=== PATIENT | male | born 1940 | race Caucasian/White ===

== ENCOUNTER 2023-07-19 08:51 | Outpatient (OUT) | payer MEDICARE, OTHER, SELFPAY ==
--- NOTE | 2023-07-19 09:04 | XR_ITS ---
The [address] [address] Patient Name: YVONNE CAN MRN: [id number] date: 1940 Sex: M Assigned Patient Location: [facility] Current Patient Location: Accession/Order Number: [id number] Exam Date: 07/19/2023 09:45 Report Date: 07/20/2023 07:28 At the request of: ABRAN PICKERING Procedure: XR chest 2V EXAMINATION: XR chest 2V HISTORY: Preop exam COMPARISON: No relevant comparison available. FINDINGS: LUNGS: No significant pulmonary parenchymal abnormalities. VASCULATURE: No increased pulmonary vasculature. PLEURA: No pneumothorax, effusion, or pleural thickening. CARDIAC: No cardiomegaly or cardiac silhouette abnormality. MEDIASTINUM: No visible mass or adenopathy. BONES: Mild grade 1 retrolisthesis of approximately T12 and L1 vertebral bodies. No compression fractures. OTHER: Negative. XR/XR chest 2V IMPRESSION: 1. No acute cardiopulmonary process or appreciable significant chronic interstitial changes. Electronically authenticated by: SHAQUILLE ENGLISH Date: 07/20/2023 07:28
--- NOTE | 2023-07-19 09:04 | ECG_ITS ---
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
--- NOTE | 2023-07-19 09:44 | P.GSHP_ITS ---
History of Present Illness History of Present Illness Chief complaint: prostate cancer Narrative: Patient presents for preadmission testing. The patient states he has nocturia and has been diagnosed with prostate cancer. The patient is a poor historian. He denies nausea, vomiting, dysuria, hematuria, fever, or any other complaints. Review of Systems ROS Narrative REVIEW OF SYSTEMS: Negative except as stated in HPI, ten or more systems reviewed. Constitutional: No fever , chills, weakness ENT: No sore throat or epistaxis Cardiovascular: No edema, chest pain, palpitations, or activity intolerance Respiratory: No shortness of breath, cough, or wheezing Musculoskeletal: No joint pain or swelling Gastrointestinal: No abdominal pain, constipation, diarrhea, or vomiting Genitourinary: No dysuria or hematuria Neurological: No numbness, tingling, weakness, or headache Psychiatric: No mood changes PFSH PFSH Medical History (Updated 07/19/23 @ 09:43 by Nichelle Guevara NP) Benign prostatic hyperplasia with urinary obstruction and other lower urinary tract symptoms ?N40.1 - Benign prostatic hyperplasia with lower urinary tract symptoms (ICD- 10) ?N13.8 - Other obstructive and reflux uropathy (ICD-10) BPH (benign prostatic hyperplasia) ?N40.0 - Benign prostatic hyperplasia without lower urinary tract symptoms (ICD-10) Constipation ?K59.00 - Constipation, unspecified (ICD-10) Elevated PSA ?R97.20 - Elevated prostate specific antigen [PSA] (ICD-10) Elevated serum cholesterol ?E78.00 - Pure hypercholesterolemia, unspecified (ICD-10) Hearing loss ?H91.90 - Unspecified hearing loss, unspecified ear (ICD-10) Hypertension ?I10 - Essential (primary) hypertension (ICD-10) Kidney stones ?N20.0 - Calculus of kidney (ICD-10) Prostate cancer ?C61 - Malignant neoplasm of prostate (ICD-10) Surgical History (Updated 07/19/23 @ 09:26 by Nichelle Guevara NP) History of cataract extraction ?Z98.49 - Cataract extraction status, unspecified eye (ICD-10) History of colonoscopy ?Z98.890 - Other specified postprocedural states (ICD-10) History of hemorrhoidectomy ?Z98.890 - Other specified postprocedural states (ICD-10) History of hernia repair ?Z98.890 - Other specified postprocedural states (ICD-10) ?Z87.19 - Personal history of other diseases of the digestive system (ICD-10) Hx of prostate biopsy ?Z98.890 - Other specified postprocedural states (ICD-10) S/P cystoscopy ?Z98.890 - Other specified postprocedural states (ICD-10) Family History (Updated 07/19/23 @ 09:26 by Nichelle Guevara NP) Other Family history of heart disease Meds Home Medications and Allergies Home Medications Medication Instructions Recorded Confirmed Type Eye and vision supplement PO 07/19/23 History aspirin 81 mg tablet,delayed 81 mg PO DAILY 07/19/23 07/19/23 History release (Adult Aspirin Regimen) calcium citrate 200 mg (950 mg) 200 mg PO DAILY 07/19/23 07/19/23 History tablet cholecalciferol (vitamin D3) 25 1,000 unit PO DAILY 07/19/23 07/19/23 History mcg (1,000 unit) capsule lactobacillus combination no.4 3 3,000 mmu cells PO DAILY 07/19/23 07/19/23 History billion cell capsule (Probiotic) lisinopril 10 mg tablet 10 mg PO DAILY 07/19/23 07/19/23 History omega-3 acid ethyl esters 1 gram 1 cap PO BID 07/19/23 07/19/23 History capsule polyethylene glycol 3350 17 17 g PO DAILY 07/19/23 07/19/23 History gram/dose oral powder (ClearLax) simvastatin 20 mg tablet 20 mg PO DAILY 07/19/23 07/19/23 History Allergies Allergy/AdvReac Type Severity Reaction Status Date / Time Penicillins Allergy Rash Verified 07/19/23 09:22 Sulfa (Sulfonamide Allergy Unknown Verified 07/19/23 09:22 Antibiotics) Exam Narrative Exam Narrative: Constitutional: Awake, alert, comfortable, well-appearing, nontoxic, interactive, vital signs as charted Head: Normocephalic, atraumatic Neck: Supple, normal appearance, normal range of motion, no meningeal signs, no lymphadenopathy Respiratory: No respiratory distress, breath sounds clear Cardiovascular: Regular rate and rhythm, strong and regular heart tones Abdomen: Nontender, normal bowel sounds, soft, no CVA tenderness Musculoskeletal: Normal gait, no swelling or edema Skin: No rashes or induration, no lesions, only visible skin inspected Neuro: No neurological deficits, normal sensation Psychiatric: Oriented ?3, flat affect, Poor insight Assessment and Plan Assessment and Plan (1) Prostate cancer: Plan Ernest seed implant scheduled with Dr. Ochoa 08/02/2023.
[2023-07-19 09:49] LABS: Basophils Absolute Auto 0.1 10^3/uL (0.0-0.1); Basophils Percent Auto 0.8 % (0.2-2.0); Eosinophils Absolute Auto 0.5 10^3/uL (0.0-0.7); Eosinophils Percent Auto 7.2 % (0.9-7.0); Hemoglobin 13.9 g/dL (14.0-18.0); Immature Granulocytes Abs Auto 0.01 10^3/uL (0.00-0.03); Immature Granulocytes Pct Auto 0.2 % (0.0-0.5); Lymphocytes Absolute Auto 2.1 10^3/uL (1.2-3.8); Lymphocytes Percent Auto 31.5 % (20.5-60.0); Mean Corpuscular HGB Conc 33.1 g/dL (29.9-35.2); Mean Corpuscular Hemoglobin 30.5 pg (25.9-34.0); Mean Corpuscular Volume 92.3 fL (80.0-94.0); Mean Platelet Volume 9.7 fL (9.5-13.5); Monocytes Absolute Auto 0.6 10^3/uL (0.3-0.8); Monocytes Percent Auto 9.3 % (1.7-12.0); Neutrophils Absolute Auto 3.4 10^3/uL (1.4-6.5); Platelet Count 208 10^3/uL (150-450); Red Blood Count 4.55 10^6/uL (4.70-6.10); Red Cell Distribution Width 13.5 % (11.0-15.0); White Blood Count 6.7 10^3/uL (4.0-11.0)
[2023-07-19 10:11] LABS: Anion Gap 10.5; BUN Creatinine Ratio 29.8; Carbon Dioxide 27.9 mmol/L (21.0-32.0); Chloride 105 mmol/L (98-107); Estimated GFR (African America >60 (>=60); Estimated GFR (Non-African Ame >60 (>=60); Glucose 95 mg/dL (74-106); Potassium 4.4 mmol/L (3.5-5.1); Sodium 139 mmol/L (136-145)
== END 2023-07-19 08:52 | disposition home or self-care (01) ==
LOC: PST 08:57
PROVIDERS: PCP Internal Medicine; Visit Provider Urology
DX: Z01.812 Encounter for preprocedural laboratory examination (principal); Z01.810 Encounter for preprocedural cardiovascular examination; I10 Essential (primary) hypertension; C61 Malignant neoplasm of prostate; E78.00 Pure hypercholesterolemia, unspecified; R97.20 Elevated prostate specific antigen [PSA]; N40.2 Nodular prostate without lower urinary tract symptoms
CPT/HCPCS: 71046; 80048; 85025; 85610; 85730; 93005; G0463

== ENCOUNTER 2023-08-23 14:48 | Outpatient (OUT) | payer MEDICARE, OTHER, SELFPAY | END 2023-08-23 14:49 | disposition home or self-care (01) | LOC: PST 14:48 | PROVIDERS: PCP Internal Medicine; Visit Provider Urology | DX: Z01.818 Encounter for other preprocedural examination (principal); C61 Malignant neoplasm of prostate; E78.00 Pure hypercholesterolemia, unspecified; R97.20 Elevated prostate specific antigen [PSA] ==

== ENCOUNTER 2023-09-06 07:46 | Day surgery (SDC) | payer MEDICARE, OTHER, SELFPAY ==
[2023-07-19 09:37] VITALS: BP 136/67; PULSE 60; RESP 14; TEMP 36.4; O2SAT 95; BMI 27.5
[2023-09-06] VITALS (9 sets, daily range): BP systolic 145–167; BP diastolic 58–81; PULSE 56–103; RESP 11–21; TEMP 36.2–36.3; O2SAT 91–96; BMI 27.7
--- NOTE | 2023-09-06 | XR_ITS ---
The [address] [address] Patient Name: YVONNE CAN MRN: [id number] date: 1940 Sex: M Assigned Patient Location: SURGOUT Current Patient Location: Accession/Order Number: [id number] Exam Date: 09/06/2023 09:50 Report Date: 09/07/2023 08:55 At the request of: ABRAN PICKERING Procedure: XR pelvis 1-2V EXAMINATION: XR pelvis 1-2V HISTORY: PROSTATE SEED IMPLANT COMPARISON: No relevant comparison available. FINDINGS: Iodinated contrast opacifies the urinary bladder. Multiple metallic foreign bodies project over the pubic symphysis consistent with prostate seed implantation. XR/XR pelvis 1-2V IMPRESSION: Prostate seed implantation Electronically authenticated by: CHRISTINE VALLES Date: 09/07/2023 08:55
[2023-09-06 08:12] LABS: INR 1.03; Prothrombin Time 10.9 sec (9.0-11.6)
[2023-09-06 08:15] LABS: Partial Thromboplastin Time 30.8 sec (22.3-36.2)
[2023-09-06] MEDS: LACTATED RINGER'S SOLUTION 1,000 ML 50 ML IV (08:21)
[2023-09-06] MEDS: LACTATED RINGER'S SOLUTION 1,000 ML 75 ML IV (09:25)
[2023-09-06] MEDS: CEFTRIAXONE 1,000 MG in 0.9 % SODIUM CHLORIDE 50 ML 100 MG IV (09:26)
--- NOTE | 2023-09-06 10:18 | P.URON_ITS ---
Urology Surgery Operative Note Operative Note Procedure Date: 09/06/23 Time Out Performed: yes Pre-op Diagnosis: Prostate cancer Post-op Diagnosis: same as pre-op Procedures performed: 1. Iodine 125 prostate seed implantation. 2. Cystoscopy. Anesthesia: General-LMA Primary Surgeon: Tushar Ochoa Complications: None Estimated blood loss (mL): 5 Specimens: None Drains: 18 [place] Citizen Mendoza catheter to the bladder Indications for Procedures: This 82-year-old gentleman was found to have prostate cancer with a [place] score of 3+3 equal 6 in 4 cores and 3+4 equal 7 in 1 core. His PSA was under 4. He was desirous for brachytherapy. He saw Dr. Santos and a treatment plan was formulated for iodine 125 seed implantation and a simulation was done. He now presents for prostate seed implantation with iodine 125 and cystoscopy. He has signed an informed consent after all risks were explained. Detailed description of Procedure: The patient was brought to the operating room and placed on the operating room table in the supine position. SCDs were placed on the lower extremities and turned on and functioning during the entire case. Timeout was done by all parties in the room. We all agreed upon the patient's identification and the planned procedures for this patient. Genn. anesthesia was then administered. The patient was then repositioned into the modified dorsal lithotomy position. All pressure points were satisfactorily padded. Genitalia and perineum were sterilely prepped and draped in usual fashion. We verified that his position matched the preoperative simulation so the treatment plan could be accurately executed. The bladder was then filled with dilute contrast and saline. The catheter was then removed. The implant bracket and the ultrasound probe were brought to the foot of the table. The probe was passed per rectum. The grid was placed over the perineum. We began passing needles trans perineally into the prostate and placing seeds within the prostate at predetermined locations. We passed 15 needles and placed 61 seeds of iodine 125 into the prostate the assistance of fluoroscopy and u ltrasound guidance. This conferred a dose of 145 [place]. Upon completion of the seed implantation, we did live dosimetry on the table. This showed excellent coverage throughout the entire prostate. The last radiographic image revealed an accurate seed count within the prostate. The implant bracket, grid and ultrasound probe were then removed from the foot of the table. I then passed a 22 [place] Citizen Olympus cystoscope per urethra and into the bladder. There was no evidence of any seeds or spacers protruding from the prostatic urethra. Panendoscopy in the bladder showed no evidence of any seeds or spacers. The scope was then removed. I then placed an 18 [place] Mendoza catheter in the bladder. It drained clear. He was then transferred to a [place] bed and wheeled to PACU in stable condition. He will be discharged to home later today with a prescription for Vesicare 10 mg daily #7 and Cipro 500 mg twice daily for a week. Follow-up will be in a week Print Line Operator: MO KINGSLEY
== END 2023-09-06 11:20 | disposition home or self-care (01) ==
PROVIDERS: PCP Internal Medicine; Visit Provider Urology
PROC: (CPT 55875; principal; 2023-09-06 09:00)
DX: C61 Malignant neoplasm of prostate (principal); E78.00 Pure hypercholesterolemia, unspecified; N40.2 Nodular prostate without lower urinary tract symptoms; R97.20 Elevated prostate specific antigen [PSA]; I10 Essential (primary) hypertension; Z85.820 Personal history of malignant melanoma of skin; N40.1 Benign prostatic hyperplasia with lower urinary tract symptoms; R35.0 Frequency of micturition; R35.1 Nocturia; Z87.442 Personal history of urinary calculi; Z79.899 Other long term (current) drug therapy; Z79.82 Long term (current) use of aspirin
CPT/HCPCS: 55875; 36415; 72170; 76965; 77290; 77332; 77778; 85610; 85730; C1715; C2638; C2639; J2704

== ENCOUNTER 2023-09-13 02:55 | Emergency (ER) | payer MEDICARE, OTHER, SELFPAY ==
[2023-09-13 02:59] VITALS: BP 178/78; PULSE 65; RESP 18; TEMP 36.5; O2SAT 96; BMI 28.1
--- NOTE | 2023-09-13 03:13 | PC.NURSE ---
Bladder scan for 583
--- NOTE | 2023-09-13 03:18 | ED.MALEGU1 ---
HPI - Male Genitourinary General Chief complaint: Urogenital-Male Stated complaint: urine retention cath prob Time Seen by Provider: 09/13/23 03:17 Source: patient and family Mode of arrival: walk-in Limitations: no limitations History of Present Illness HPI Narrative: 82-year-old male sent to the emergency department for evaluation of acute urinary retention. He had radioactive seeds placed in his prostate after getting a diagnosis of prostate cancer one week ago. A Mendoza catheter was placed after the procedure. The Mendoza catheter was removed at the urologist office yesterday morning around 8 AM. The patient states he has not been able to urinate since that time. He states that he is uncomfortable but not having severe pain. He has not had any fevers or chills. He has not had any nausea vomiting. He has no flank pain. It was over 500 mL on a bladder scan performed upon arrival. Related Data Home Medications Medication Instructions Recorded Confirmed Eye and vision supplement PO 07/19/23 aspirin 81 mg tablet,delayed 81 mg PO DAILY 07/19/23 07/19/23 release (Adult Aspirin Regimen) calcium citrate 200 mg (950 mg) 200 mg PO DAILY 07/19/23 07/19/23 tablet cholecalciferol (vitamin D3) 25 1,000 unit PO DAILY 07/19/23 07/19/23 mcg (1,000 unit) capsule lactobacillus combination no.4 3 3,000 mmu cells PO DAILY 07/19/23 07/19/23 billion cell capsule (Probiotic) lisinopril 10 mg tablet 10 mg PO DAILY 07/19/23 07/19/23 omega-3 acid ethyl esters 1 gram 1 cap PO BID 07/19/23 07/19/23 capsule polyethylene glycol 3350 17 17 g PO DAILY 07/19/23 07/19/23 gram/dose oral powder (ClearLax) simvastatin 20 mg tablet 20 mg PO DAILY 07/19/23 07/19/23 Previous Rx's Medication Instructions Recorded ciprofloxacin HCl 500 mg tablet 500 mg PO BID #14 tabs 09/06/23 (Cipro) solifenacin 10 mg tablet (Vesicare) 10 mg PO DAILY #7 tabs 09/06/23 Allergies Allergy/AdvReac Type Severity Reaction Status Date / Time Penicillins Allergy Rash Verified 07/19/23 09:22 Sulfa (Sulfonamide Allergy Unknown Verified 07/19/23 09:22 Antibiotics) Review of Systems ROS Status of ROS 10 or more systems reviewed and unremarkable except as noted in history and below PFSH [facility] Medical History (Updated 09/13/23 @ 03:32 by Yelitza Rodriges MD) Constipation ?K59.00 - Constipation, unspecified (ICD-10) Benign prostatic hyperplasia with urinary obstruction and other lower urinary tract symptoms ?N40.1 - Benign prostatic hyperplasia with lower urinary tract symptoms (ICD-10) ?N13.8 - Other obstructive and reflux uropathy (ICD-10) Elevated serum cholesterol ?E78.00 - Pure hypercholesterolemia, unspecified (ICD-10) Prostate cancer ?C61 - Malignant neoplasm of prostate (ICD-10) Kidney stones ?N20.0 - Calculus of kidney (ICD-10) BPH (benign prostatic hyperplasia) ?N40.0 - Benign prostatic hyperplasia without lower urinary tract symptoms (ICD-10) Elevated PSA ?R97.20 - Elevated prostate specific antigen [PSA] (ICD-10) Hearing loss ?H91.90 - Unspecified hearing loss, unspecified ear (ICD-10) Hypertension ?I10 - Essential (primary) hypertension (ICD-10) Surgical History (Updated 07/19/23 @ 09:26 by Nichelle Guevara NP) History of cataract extraction ?Z98.49 - Cataract extraction status, unspecified eye (ICD-10) S/P cystoscopy ?Z98.890 - Other specified postprocedural states (ICD-10) Hx of prostate biopsy ?Z98.890 - Other specified postprocedural states (ICD-10) History of colonoscopy ?Z98.890 - Other specified postprocedural states (ICD-10) History of hemorrhoidectomy ?Z98.890 - Other specified postprocedural states (ICD-10) History of hernia repair ?Z98.890 - Other specified postprocedural states (ICD-10) ?Z87.19 - Personal history of other diseases of the digestive system (ICD-10) Family History (Updated 07/19/23 @ 09:26 by Nichelle Guevara NP) Other Family history of heart disease Social History (Updated 09/06/23 @ 08:05 by Francine Vega) Within the past year, how often did you have a drink containing alcohol: never Score interpretation: A score less than 4 is consistent with normal alcohol consumption. Smoking status: Never smoker Non-prescribed substance use: denies use Previous occupational history: RETIRED Exam Narrative Exam Narrative: Nurses note and vital signs reviewed and patient is not hypoxic.Pressure is noted to be elevated at 178/78 General: Non- toxic elderly male lying very still on the stretcher, no respiratory distress Skin: Warm, dry, no pallor noted. There is no rash noted. Head: Normocephalic, atraumatic Eye: Normal conjunctiva Cardiovascular: Regular Rate and Rhythm S1S2, no murmurs, rubs or gallops Respiratory: Patient is in no distress, no accessory muscle use, lungs are clear to auscultation, no wheezing, rales or rhonchi GI: Normal bowel sounds, fullness over urinary bladder with >500cc of urine detected on Bladder scan Musculoskeletal: The patient has no evidence of calf tenderness, no pitting edema, symmetrical pulses noted bilaterally Neurological: A&O x4, normal speech Psychiatric: Cooperative Constitutional Vital Signs, click to edit/add: Last Vital Signs Temp 97.7 F 09/13/23 02:59 Pulse 65 09/13/23 02:59 Resp 18 09/13/23 02:59 BP 178/78 H 09/13/23 02:59 Pulse Ox 96 09/13/23 02:59 O2 Del Method Room Air 09/13/23 02:59 Course Vital Signs Vital signs: Vital Signs Temperature 97.7 F 09/13/23 02:59 Pulse Rate 65 09/13/23 02:59 Respiratory Rate 18 09/13/23 02:59 Blood Pressure 178/78 H 09/13/23 02:59 Pulse Oximetry 96 09/13/23 02:59 Oxygen Delivery Method Room Air 09/13/23 02:59 Temperature 97.7 F 09/13/23 02:59 Pulse Rate 65 09/13/23 02:59 Respiratory Rate 18 09/13/23 02:59 Blood Pressure 178/78 H 09/13/23 02:59 Pulse Oximetry 96 09/13/23 02:59 Oxygen Delivery Method Room Air 09/13/23 02:59 MDM - Male Genitourinary MDM Narrative Medical decision making narrative: 82-year-old male who was recently treated for prostate cancer with you active seeds presents for evaluation of acute urinary retention after having his Mendoza catheter that had been in place since his surgery one week ago removed yesterday morning. He has not urinated since that time. He complained of abdominal discomfort and there was greater then 500 mL of urine in his bladder scan. A Mendoza catheter was placed with the nursing staff to drain the bladder. He is feeling much more relaxed and comfortable at this time and will be discharged home with the Mendoza catheter in place and a leg bag. The patient is referred back to the urology group for further evaluation and treatment. I suggested that he call the office this morning for further recommendations and a follow-up appointment for Mendoza catheter removal next week as it is a holiday weekend. Discharge Plan Discharge Chief Complaint: Urogenital-Male Clinical Impression: Acute retention of urine Patient Disposition: Home, Self-Care Time of Disposition Decision: 03:32 Condition: Good Prescriptions / Home Meds: No Action lisinopril 10 mg tablet 10 mg PO DAILY omega-3 acid ethyl esters 1 gram capsule 1 cap PO BID simvastatin 20 mg tablet 20 mg PO DAILY calcium citrate 200 mg (950 mg) tablet 200 mg PO DAILY Eye and vision supplement PO cholecalciferol (vitamin D3) 25 mcg (1,000 unit) capsule 1,000 unit PO DAILY Probiotic 3 billion cell capsule 3,000 mmu cells PO DAILY Rx Instructions: administer with a meal aspirin [Adult Aspirin Regimen] 81 mg tablet,delayed release (DR/EC) 81 mg PO DAILY polyethylene glycol 3350 [ClearLax] 17 gram/dose powder 17 g PO DAILY ciprofloxacin HCl [Cipro] 500 mg tablet 500 mg PO BID Qty: 14 0RF solifenacin [Vesicare] 10 mg tablet 10 mg PO DAILY Qty: 7 0RF Instructions: Urinary Retention in Men (ED), Mendoza Catheter Placement and Care (ED) Stand Alone Forms: Portal Instructions Referrals: TOSHIA WITT [Primary Care Provider] - 1 week
[2023-09-13] MEDS: LIDOCAINE 2% JELLY 10 ML UR (03:30)
--- NOTE | 2023-09-13 04:05 | PC.NURSE ---
Bruising to scrotum noted from recent surgery.
--- OUTSIDE RECORDS SUMMARY | 2023-09-13 10:20 | XMS_ITS | CCD ---
Author Name Unknown Address [address] [place] [address] Organization [facility] Care Team Providers Care Dietetic Tech Name Role Phone MARTIR HERBERT Primary Care Physician KEON, DR POPE Admitting Unavailable KEON, DR POPE Primary Care Unavailable KEON, DR POPE Consulting Unavailable HERBERT, DR POPE Attending Unavailable LADAN, DR OSULLIVAN Attending Unavailable KEON, DR POPE Primary Care Unavailable LADAN, DR OSULLIVAN Admitting Unavailable LADAN, DR OSULLIVAN Consulting Unavailable MANGO Herbert Primary Care Provider MD Abran Ochoa Attending Provider [phone] Martir Herbert II Primary Care Provider Keon COBIAN MD, Daniel B Primary Care Provider MANGO Herbert Primary Care Provider [phone] MD Juan Jiang Attending Provider [phone] Juan Jiang Attending Unavailable Martir Herbert Primary Care Unavailable Juan Jiang Admitting Unavailable Abran Ochoa Admitting Unavailable Abran Ochoa Attending Unavailable Martir Herbert Primary Care Unavailable MARTIR HERBERT II Primary Care Unavailable Jc MENDIOLA Attending Unavailable Jc MENDIOLA Attending Unavailable MARTIR HERBERT II Primary Care Unavailable ABRAN OCHOA Referring Unavailable Jc MENDIOLA Attending Unavailable MARTIR HERBERT II Primary Care Unavailable Abran OCHOA Attending Unavailable OCHOA, Abran Darling Attending Unavailable OCHOA, Abran Darling Referring Unavailable OCHOA, Abran Darling Admitting Unavailable OCHOA, Abran Darling Attending Unavailable OCHOA, Abran Darling Attending Unavailable OCHOA, Abran Darling Attending Unavailable OCHOA, Abran Darling Attending Unavailable OCHOA, Abran Darling Attending Unavailable OCHOA, Abran Darling Attending Unavailable OCHOA, Abran R Attending Unavailable Allergies Allergy Classification Reported Allergen(s) Allergy Type Date of Onset Reaction(s) Facility (6 sources) Penicillin; Translations: [penicillin] Drug Allergy Unknown (qualifier value) [facility] (6 sources) Sulfonamides; Translations: [sulfonamides] Drug allergy Unknown (qualifier value) [facility] (3 sources) Penicillins; Translations: [PENICILLINS] Drug allergy (disorder) 3 Hives [facility] (1 source) Sulfonamides (Antibiotic) Drug allergy (disorder) 3 [facility] (7 sources) Penicillins Drug Allergy 3 [facility] (8 sources) Sulfonamides (Antibiotic); Translations: [SULFA (SULFONAMIDE ANTIBIOTICS)] Drug Allergy 3 [facility] (1 source) Penicillins Drug allergy (disorder) [address] [facility] (1 source) Unable to Assess Drug allergy (disorder) [address] [facility] Medications Current Medications Medication Drug Class(es) Dates Sig (Normalized) Sig (Original) acetaminophen 325 mg / HYDROcodone bitartrate 7.5 mg oral tablet (1 source) Opioid Agonist Start: 01-04-2023 take 1 tablet by mouth once, then take 1 tablet by mouth every hour [place] 325 mg-7.5 mg oral tablet 1 tab(s), Oral, Once, 1 tab(s), Refill(s) 0, Take 1 hour prior to procedure, [facility]/pharmacy #[id number], 175, cm, 12/04/22 12:29:00 EDT, Height/Length Dosing, 89, kg, 12/04/22 12:29:00 EDT, Weight Dosing Start Date: 01/04/23 Status: Ordered aspirin 81 mg delayed release oral tablet (8 sources) Platelet Aggregation Inhibitor, Nonsteroidal Anti-inflammatory Drug Start: 05-29-2023 take 1 tablet by mouth once daily Aspirin (Aspir-81) 81 mg Tablet,Delayed Release (Dr/Ec) Active 81 MG PO Daily May 29, 2023 12:00am Comment on above: Take 81 mg by mouth once daily. Lactobacillus Combination No.4 (Probiotic) 3 billion cell Capsule (1 source) Start: 05-29-2023 take 3 capsules by mouth once daily Lactobacillus Combination No.4 (Probiotic) 3 billion cell Capsule Active 3000 MMU CELLS PO Daily May 29, 2023 12:00am administer with a meal Vit D3-Vit K2-Agar [place] Ext (1 source) Start: 05-29-2023 take 1 capsule by mouth once daily Vit D3-Vit K2-Agar [place] Ext Active 25 CAP PO Daily May 29, 2023 12:00am Completed/Discontinued Medications Medication Drug Class(es) Dates Sig (Normalized) Sig (Original) Calcium Citrate (7 sources) calcium citrate (CITRACAL ORAL) Take by mouth. 0 Active Comment on above: Take by mouth. cholecalciferol, vitamin D3, (VITAMIN D3 ORAL) (7 sources) cholecalciferol, vitamin D3, (VITAMIN D3 ORAL) Take by mouth. 0 Active Comment on above: Take by mouth. Lactobacillus acidophilus (7 sources) Lactobacillus acidophilus (PROBIOTIC ORAL) Take by mouth. 0 Active Comment on above: Take by mouth. lisinopril 10 mg oral tablet (13 sources) Angiotensin Converting Enzyme Inhibitor Start: 01-05-2023 lisinopril (ZESTRIL) 10 mg tablet Start: 10-28-2019 Co Lisinopril Refills(s) 0 Start Date: 10/28/19 Status: Ordered omega-3 acid ethyl esters (intermediate) 1000 mg oral capsule (8 sources) Start: 01-05-2023 omega-3 acid e thyl esters (LOVAZA) 1 gram capsule OTC PRODUCT (7 sources) OTC PRODUCT Eye and vision supplement 0 Active Comment on above: Eye and vision suppl ement Polyethylene Glycols (7 sources) polyethylene gly col 3350 (CLEARLAX ORAL) Take by mouth. 0 Active Comment on above: Take by mouth. simvastatin 20 mg oral tablet (13 sources) HMG-CoA Reductase Inhibitor Start: 01-05-2023 simvastatin (ZOCOR) 20 mg tablet Start: 10-28-2019 simvastatin Re fills(s) 0 Start Date: 10/28/19 Status: Ordered Problems Problem Classification Problem Date Documented Da te Episodic/Chronic Cancer of prostate (3 sources) Malignant neoplasm of prostate; Translations: [Malignant tumor of prostate] Onset: 02-05-2023 Chronic Cancer; other and unspecified primary (5 sources) H/O Malignant melanoma 10-28-2019 Episodic Disorders of lipid metabolism (4 sources) Mixed hyperlipidemia; Translations: [MIXED HYPERLIPIDEMIA] Onset: 03-04-2022 Chronic Gastrointestinal hemorrhage (1 source) Rectal hemorrhage; Translations: [Hemorrhage of anus and rectum] 05-03-2023 Episodic Genitourinary symptoms and ill-defined conditions (5 sources) Increased frequency of urination 09-01-2020 Episodic Hyperplasia of prostate (14 sources) Benign prostatic hypertrophy with outflow obstruction; Translations: [Prostate nodule] Onset: 12-04-2022 10-28-2019 Chronic Other gastrointestinal disorders (1 source) Constipation; Translations: [Constipation, unspecified] 05-03-2023 Episodic Other nutritional; endocrine; and metabolic disorders (5 sources) Body mass index 25-29 - overweight 09-01-2020 Episodic Other screening for suspected conditions (not mental disorders or infectious disease) (10 sources) Raised prostate specific antigen; Translations: [Elevated prostate specific antigen [PSA]] Onset: 10-17-2022 09-01-2020 Episodic Unclassified (1 source) Encounter for screening for malignant neoplasm of colon; Translations: [Encounter for screening for malignant neoplasm of colon] Onset: 05-29-2023 Unclassified (1 source) Nodular prostate without lower urinary tract symptoms; Translations: [Nodular prostate without lower urinary tract symptoms] Onset: 12-19-2022 Results Test Name Value Interpretation Reference Range Facil ity Ambulatory Visit Summaryon 1 11-13-2022 Ambulatory Visit Summary CAN JOSE J :1940 Visit Date:09/12/2023 Ambulatory Visit Instructions Your Care Team Attending Physician - Abran OCHOA MD Primary Care Physician - KEON EDWARDS, MARTIR Griffin This Is Your Medications List lisinopril (Co Lisinopril) simvastatin Procedures Performed Transrectal biopsy of prostate using ultrasound (US) guidance (12/27/2022), Transrectal biopsy of prostate using ultrasound (US) guidance (05/12/2015), Transrectal biopsy of prostate using ultrasound (US) guidance (12/29/2014), Cystoscopy (10/03/2013), Cystoscopy (09/23/2013), Transrectal biopsy of prostate using ultrasound (US) guidance (10/22/2012), Transrectal biopsy of prostate using ultrasound (US) guidance (09/12/2006), Transrectal biopsy of prostate using ultrasound (US) guidance (07/25/2005), Hemorrhoidectomy, Hiatus hernia repair. What to do next Scheduled Follow-Up Appointments Sunday 9:30 AM EST With: LADAN EDWARDS, Abran Darling Where: [facility] [address] [place] [address] [place] [address]- \.br\ Medications\.br\ What When Instructions\.br \ Unchanged lisinopril (Co Lisinopril)\.br\ Unchanged simvastatin\.br\ Allergies\.br\ penicillin (Unknown)\.br\ sulfonamides (Unknown)\.br\ Problems\.br\ Ongoing - Any problem that you are currently receiving treatment for.\.br\ BMI 29.0-29.9,adult\ .br\ BPH with obstruction/lowe r urinary tract symptoms\.br\ Elevated PSA\.br\ Frequent urination\.br\ Prostate nodule\.br\ Historical - Any problem that you are no longer receiving treatment for.\.br\ H/O Malignant melanoma\.br\ Patient Survey\.br\ You may receive a survey via text or e-mail asking about your office visit. Please share your experience with us by completing your survey. We appreciate your feedback and thank you for choosing us for your care.\.br\ \.br\ [facility] Lab Reportson 09-07-2023 Lab Reports [id number]#1.0 0TIFF Normal [facility] Operative Reporton Operative Report [id number]#1.0 0TIFF Normal [facility] RAD - MISCon 09-07-2023 RAD - MISC [id number]#1.0 0TIFF Normal [facility] CNOVon 09-06-2023 CNOV Office Visit (RADTSA ) JOSE CAN ([id number]) 1940 M Date Time Provider Department 09/06/23 9:00 AM Jc MENDIOLA During your visit today, we recorded the following information about you: Jc Mendiola MD 09/06/2023 3:18 PM Signed Date: 09/06/23 Facility: [facility] Procedure: prostate transperineal brachytherapy implant Diagnosis: Prostate cancer. Sources: I-125 Anesthesia:general Urologist: Dr. Ochoa This is an operative report supplement to Dr. Ochoa note. Prior the the implant patient underwent planning using transrectal ultrasound based. The planning including outline of prostate and planning margin around prostate to deliver 145 Gy using I-125 sources. It was determined 61 sources, was necessary using 15 needles. Prior to the procedure on the morning of the implant, patient identified by name and hospital ID bracelet. After anesthesia administered patient placed in dorsal-lithotomy position and ultrasound study done showing good correlation with planning images and excellent visualization of the gland. Implant was then carried out using transperineal technique with active ultrasound and fluoroscopic guidance. At the end of the case the treatment planning ultrasound computer showed captured seed located in expected position with appropriate target coverage, no extra seeds implanted. X-ray image showed good seed distribution and all 61 sources. Intraoperative dosimetry reviewed showing approptiate D90 and excellent coverage of gland by the 100% IDL. After the cystoscopy physics performed survey with meter of patient, cystoscopy fluid, floor, trash, work table and general area. No excess activity seen, results documented. Edilma Mendiola MD [facility] Allergies As of Date: 09/06/2023 Noted Allergy Reaction PENICILLINS 02/16/2023 2 - Rash SULFA (SULFONAMIDE ANTIBIOTICS) 02/16/2023 2 - Rash Date Reviewed: Never Reviewed Primary Visit Diagnosis:Malignant neoplasm of prostate (HCC) [C61] Prescriptions as of 09/06/2023 - simvastatin (ZOCOR) 20 mg tablet - lisinopril (ZESTRIL) 10 mg tablet - omega-3 acid ethyl esters (LOVAZA) 1 gram capsule - calcium citrate (CITRACAL ORAL) Take by mouth. - Lactobacillus acidophilus (PROBIOTIC ORAL) Take by mouth. - cholecalciferol, vitamin D3, (VITAMIN D3 ORAL) Take by mouth. - polyethylene glycol 3350 (CLEARLAX ORAL) Take by mouth. - aspirin, enteric coated (ASPIRIN, ENTERIC COATED) 81 mg EC tablet Take 81 mg by mouth once daily. - OTC PRODUCT Eye and vision supplement Problem List As Of Date: 09/06/2023 (None) Encounter Status:Closed by Jc MENDIOLA on 09/06/23 [facility] Consultation Noteon 08-10-20 Consultation Note [id number]#1.0 0TIFF [facility] 07-24-2023 CNPN Telephone (RADTSA) JOSE CAN ([id number]) 1940 M Date Time Provider Department 07/24/23 Jc MENDIOLA RADTSA During your visit today, we recorded the following information about you: Debra Kelly LPN 07/24/2023 10:01 AM Signed Christina with Dr. 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 Reno now needs to cardiac clearance and the first available appointment with Dr. Payne isn't until 08/06/23. Brachytherapy appointment rescheduled from 08/02/23 to 09/06/23. I left a message for [place]o to call me back to notify him that we will him an updated schedule. NATALIO Rutherford Ariana, LPN 07/25/2023 11:27 AM Signed jai Robison's dtr, returned my call and I notified her that a new schedule has been mailed to [place]o for his upcoming prostate seed implant and follow ups. Debra Kelly RN Allergies As of Date: 07/24/2023 Noted Allergy Reaction PENICILLINS 02/16/2023 2 - Rash SULFA (SULFONAMIDE ANTIBIOTICS) 02/16/2023 2 - Rash Date Reviewed: Never Reviewed Reason for Visit: Appointment [186] Prescriptions as of 07/25/2023 - simvastatin (ZOCOR) 20 mg tablet - lisinopril (ZESTRIL) 10 mg tablet - omega-3 acid ethyl esters (LOVAZA) 1 gram capsule - calcium citrate (CITRACAL ORAL) Take by mouth. - Lactobacillus acidophilus (PROBIOTIC ORAL) Take by mouth. - cholecalciferol, vitamin D3, (VITAMIN D3 ORAL) Take by mouth. - polyethylene glycol 3350 (CLEARLAX ORAL) Take by mouth. - aspirin, enteric coated (ASPIRIN, ENTERIC COATED) 81 mg EC tablet Take 81 mg by mouth once daily. - OTC PRODUCT Eye and vision supplement Problem List As Of Date: 07/24/2023 (None) Encounter Status:Closed by DEBRA KELLY on 07/25/23 [facility] ECG 12-Leadon 07-24-2023 ECG 12-Lead [id number]#1.0 0TIFF [facility] Formson 07-24-2023 Forms [id number]#1.0 0TIFF [facility] ECG 12-Leadon 07-20-2023 ECG 12-Lead [id number]#1.0 0TIFF [facility] Lab Reportson 07-20-2023 Lab Reports [id number]#1.00 TIFF [facility] Lab Reports [id number]#1 .00TIFF [facility] Lab Reports [id number]#1.00 TIFF [facility] RAD - MISCon 07-20-2023 RAD - [facility] [id number]#1.00 TIFF Viktor [facility] CNOVon 07-11-2023 CN Office Visit (RADTSA ) JOSE CAN ([id number]) 1940 M Date Time Provider Department 07/11/23 11:30 AM Jc MENDIOLA During your visit today, we recorded the following information about you: Jc Mendiola MD 07/12/2023 3:19 PM Signed UNIVERSAL PROTOCOL / SAFETY CHECKLIST Procedure to be Performed: Prostate volume study Sign In: A Moment of CARE was completed. Personnel directly involved with the procedure wore the appropriate PPE (Personal Protective Equipment). Patient/Surrogate Stated/Verified: PATIENT VERIFIED(optional for EMERGENT procedures): Patient name, Date of , Relevant allergies, and The intended procedure Time Out Communication: Intended patient and procedure match the source documents. Consent documented and matches the intended procedure. Sign Out: SIGN OUT (optional for EMERGENT procedures): No specimen collected. All instruments, equipment, possible retained foreign bodies accounted for. Post-procedure follow-up management communicated and Plan of Care Visit completed when applicable. Jc Mendiola MD Allergies As of Date: 07/11/2023 Noted Allergy Reaction PENICILLINS 02/16/2023 2 - Rash SULFA (SULFONAMIDE ANTIBIOTICS) 02/16/2023 2 - Rash Date Reviewed: Never Reviewed Primary Visit Diagnosis:Malignant neoplasm of prostate (HCC) [C61] Prescriptions as of 07/12/2023 - simvastatin (ZOCOR) 20 mg tablet - lisinopril (ZESTRIL) 10 mg tablet - omega-3 acid ethyl esters (LOVAZA) 1 gram capsule - calcium citrate (CITRACAL ORAL) Take by mouth. - Lactobacillus acidophilus (PROBIOTIC ORAL) Take by mouth. - cholecalciferol, vitamin D3, (VITAMIN D3 ORAL) Take by mouth. - polyethylene glycol 3350 (CLEARLAX ORAL) Take by mouth. - aspirin, enteric coated (ASPIRIN, ENTERIC COATED) 81 mg EC tablet Take 81 mg by mouth once daily. - OTC PRODUCT Eye and vision supplement Problem List As Of Date: 07/11/2023 (None) Encounter Status:Closed by Jc MENDIOLA on 07/12/23 [facility] Consent for Procedure/Surger yon 06-27-2023 Consent for Procedure/Surgery [id number]#1. 00CD:127 [facility] 06-04-2023 CNPN Telephone (RADTSA) JOSE CAN ([id number]) 1940 M Date Time Provider Department 06/04/23 Jc MENDIOLA During your visit today, we recorded the following information about you: Nichelle Elkins RN 06/04/2023 8:45 AM Signed Call placed to pt and LM to let him know we have implant scheduled. Requested pt to CB to go over schedule prior to sending in mail. NATALIO Woodson Angela, RN 06/04/2023 11:32 AM Signed Spoke to daughter and appts were reviewed. Appt slips mailed to pt. Nichelle Elkins RN Allergies As of Date: 06/04/2023 Noted Allergy Reaction PENICILLINS 02/16/2023 2 - Rash SULFA (SULFONAMIDE ANTIBIOTICS) 02/16/2023 2 - Rash Date Reviewed: Never Reviewed Reason for Visit: Future Appointment [256] Prescriptions as of 06/04/2023 - simvastatin (ZOCOR) 20 mg tablet - lisinopril (ZESTRIL) 10 mg tablet - omega-3 acid ethyl esters (LOVAZA) 1 gram capsule - calcium citrate (CITRACAL ORAL) Take by mouth. - Lactobacillus acidophilus (PROBIOTIC ORAL) Take by mouth. - cholecalciferol, vitamin D3, (VITAMIN D3 ORAL) Take by mouth. - polyethylene glycol 3350 (CLEARLAX ORAL) Take by mouth. - aspirin, enteric coated (ASPIRIN, ENTERIC COATED) 81 mg EC tablet Take 81 mg by mouth once daily. - OTC PRODUCT Eye and vision supplement Problem List As Of Date: 06/04/2023 (None) Encounter Status:Closed by NICHELLE ELKINS on 06/04/23 [facility] 05-29-2023 L -- ---- Specimen: [id number] Received: 05/29/23 Status: RANDI Capellan Num: [id number] Spec Type: Surgical Subm Dr: Juan Jiang MD Tissues: A Colon Biopsy (ASCENDING POLYP) Procedures: HENOK/Areli Schwab/Phuc Butt ---- Age/ Patient Sex Location Account Attending Physician ---- Jose Can /M [id number] Juan Jiang MD ---- SPEC NUM: [id number] RECD: 05/29/23 STATUS: RANDI CAPELLAN NUM: [id number] FAIZAN: 05/29/23 DR: Juan Jiang MD ENTERED: 05/29/[address] [facility] DR: SPEC TYPE: Surgical DEPT: S ORDERED: HE/2, Gross/Micro L4 ORDERED: HE/2, Gross/Micro L4 Pathological Diagnosis Colon, ascending, polyp, biopsy: - Hyperplastic polyp Clinical Information Screen Gross Description Received in formalin labeled with the patient's name, date of and ascending polyp is one cabrera tissue measuring 0.7 x 0.4 x 0.1 cm admixed with fecal material. Entirely submitted in one cassette labeled A1. Microscopic Description Two H E slides reviewed. The microscopic examination confirms the diagnosis. CPT Codes 75653 ---- ---- Specimen: [id number] Received: 05/29/23 Status: RANDI Capellan Num: [id number] Spec Type: Surgical Subm Dr: Juan Jiang MD Tissues: A Colon Biopsy (ASCENDING POLYP) Procedures: HE/2, Gross/Micro L4 ---- Patient: Jose Can [id number] (Continued) ---- Signed (signature on file) Kashmir Linares MD 05/31/23 [facility] CNPNon 05-02-2023 CNPN Telephone (RADTSA) JOSE CAN ([id number]) 1940 M Date Time Provider Department 05/02/23 Jc MENDIOLA During your visit today, we recorded the following information about you: Nichelle Elkins, RN 05/02/2023 2:54 PM Signed Pts dtr called in asking if implant could be moved up instead of waiting until the fall. She said her Dad has been worrying that his cancer has now spread. He has developed some new constipation and had some blood in his stool a couple of times. The constipation is unusual for him. He is using Miralax and another oral over the counter laxative and still having difficulty going. I did explain that it would not be likely that this would be related to the prostate cancer. They have not yet contacted his PCP because they thought they'd start with seeing if we could move up the implant first. Last colonoscopy was done per Dr Franco at [facility] in 2016. It was normal. Dr Mendiola-- please advise. NATALIO Woodson Angela, RN 05/03/2023 9:46 AM Signed Call placed to let Enriqueta know that Dr Mendiola would like patient to have a colonoscopy prior to scheduling seed implant. LM requesting cb. NATALIO Woodson Angela, RN 05/03/2023 9:58 AM Signed MARY- please sign GI referral PSS- please coordinate colonoscopy referral locally. Prior patient of Dr Franco. They would like local referral ([facility]). This needs done prior to us being able to schedule his prostate seed implant surgery. Thank you NATALIO Woodson Tiffany 05/03/2023 10:14 AM Signed Faxed ref and notes over as urgent will check on later Dona Stokes 05/03/2023 10:39 AM Signed Called and got patient scheduled for Sunday for colonscopy called the daughter stated he could not do that he will be out of town, I told her there office will be calling him to r/s and figure out a good date she will be calling me back to tell me when they scheduled it for. Dona Stokes 05/03/2023 11:09 AM Signed Patients daughter called back she scheduled it for 05/29 in the morning she said. Allergies As of Date: 05/02/2023 Noted Allergy Reaction PENICILLINS 02/16/2023 2 - Rash SULFA (SULFONAMIDE ANTIBIOTICS) 02/16/2023 2 - Rash Date Reviewed: Never Reviewed Reason for Visit: Constipation [25] Rectal Bleeding [202] Future Appointment [256] Primary Visit Diagnosis:Rectal bleeding [K62.5] Other Visit Diagnoses:Constipation , unspecified constipation type [K59.00] Prostate cancer (HCC) [C61] Prescriptions as of 05/29/2023 - simvastatin (ZOCOR) 20 mg tablet - lisinopril (ZESTRIL) 10 mg tablet - omega-3 acid ethyl esters (LOVAZA) 1 gram capsule - calcium citrate (CITRACAL ORAL) Take by mouth. - Lactobacillus acidophilus (PROBIOTIC ORAL) Take by mouth. - cholecalciferol, vitamin D3, (VITAMIN D3 ORAL) Take by mouth. - polyethylene glycol 3350 (CLEARLAX ORAL) Take by mouth. - aspirin, enteric coated (ASPIRIN, ENTERIC COATED) 81 mg EC tablet Take 81 mg by mouth once daily. - OTC PRODUCT Eye and vision supplement Problem List As Of Date: 05/02/2023 (None) Encounter Status:Closed by NICHELLE ELKINS on 05/29/23 [facility] CNOVon 02-16-2023 CNOV Office Visit (RADTSA ) JOSE CAN ([id number]) 1940 M Date Time Provider Department 02/16/23 8:00 AM Jc MENDIOLA During your visit today, we recorded the following information about you: Temperature Pulse Respiration Blood pressure 97.7 degrees 50/minute 16/minute 153/72 Weight Height 87.1 kg 1.753 m Jc Mendiola MD 02/16/2023 10:23 AM Signed Radiation Oncology - Prostate Cancer New Patient/Consult Note PATIENT NAME: Jose Can PATIENT REQUESTING PROVIDER: Dr. Ochoa DIAGNOSIS: 82 year old male with prostate adenocarcinoma, 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 HPI: 82 year old male with prostate adenocarcinoma who presents for an opinion regarding the role of radiation therapy in the management of the patient's disease. Final recommendations will be communicated back to the requesting physician by way of the shared medical record, or letter to requesting physician via US mail. The patient was diagnosed with prostate cancer and comes in today to discuss treatment options. Clinical exam revealed nodule. PSA, 3.1 (21.9 % free), on 10/17/22. MRI prostate 12/19/2022 demonstrating 34 cc gland, focal T2 7 x 4 mm lesion left peripheral zone PI-RADS 4. No suspicious findings within the seminal vesicles, neurovascular bundles, pelvic lymph nodes, skeletal area. Prostate biopsy on January 17, 2023 revealed: 35 cc gland Adenocarcinoma [place] 7 (3+4) from right apical and 4 areas of Alpa 6 (3+3) including left base right base right lateral base right lateral apical cores Total # of positive biopsy cores: 5 Total # of biopsy cores sampled: 13 Greatest % cancer in any single core: 25-50% Staging Studies: MR Results: See HPI Previous Treatment for Prostate Cancer: None Genomic Testing: None The patient reports the following pertinent history: Urinary frequency (D/N): 4-6/1 Dysuria: No Incontinence: 1- No pads Hematuria: No - Total AUA Score: 1 Bowel Movement Frequency: 1/day Bowel Movement Quality: Normal Blood per Rectum: No Last Colonoscopy: na Prior Radiation Therapy, Collagen Vascular Disease, or Inflammatory Bowel Disease: No Currently on Anticoagulation: No History of Hip Replacement: No History of Prior TURP: No ALLERGIES Allergen Reactions Penicillins Rash Sulfa (Sulfonamide * Rash simvastatin (ZOCOR) 20 mg tablet lisinopril (ZESTRIL) 10 mg tablet omega-3 acid ethyl esters (LOVAZA) 1 gram capsule calcium citrate (CITRACAL ORAL) Take by mouth. Lactobacillus acidophilus (PROBIOTIC ORAL) Take by mouth. cholecalciferol, vitamin D3, (VITAMIN D3 ORAL) Take by mouth. polyethylene glycol 3350 (CLEARLAX ORAL) Take by mouth. aspirin, enteric coated (ASPIRIN, ENTERIC COATED) 81 mg EC tablet Take 81 mg by mouth once daily. 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 KARNOFSKY PERFORMANCE STATUS: 100 General Appearance: Alert and oriented. No acute distress. HEENT: NCAT. Sclera anicteric. PERRL. EOMI. Neck: Normal ROM. No palpable cervical or supraclavicular adenopathy. Chest: No respiratory distress. Lungs clear to auscultation bilaterally. Heart: Regular rate and rhythm. Abdomen: Soft. Nontender. Nondistended. Musculoskeletal: No edema. Normal ROM in extremities. No bone or spine tenderness. Neuro: Speech fluent. Gait normal. No focal deficits. Skin: No rashes noted Lymphatics: No palpable lymphadenopathy. 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 Normal [facility] Consultation Noteon 02-17-20 Consultation Note [id number]:[id number] Normal [facility] Patient Educationon 02-06-20 Patient Education Oncology Prostate Cancer The prostate is a small gland that produces fluid that makes up semen (seminal fluid). It is located below the bladder in men, in front of the rectum. Prostate cancer is the abnormal growth of cells in the prostate gland. What are the causes? The exact cause of this condition is not known. What increases the risk? You are more likely to develop this condition if: ? You are 65 years of age or older. ? You have a family history of prostate cancer. ? You have a family history of breast and ovarian cancer. ? You have genes that are passed from parent to child (inherited), such as BRCA1 and BRCA2. ? You have Beckman syndrome. men and men of descent are diagnosed with prostate cancer at higher rates than other men. The reasons for this are not well understood and are likely due to a combination of genetic and environmental factors. What are the signs or symptoms? Symptoms of this condition include: ? Problems with urination. This may include: ? A weak or interrupted flow of urine. ? Trouble starting or stopping urination. ? Trouble emptying the bladder all the way. ? The need to urinate more often, especially at night. ? Blood in urine or semen. ? Persistent pain or discomfort in the lower back, lower abdomen, or hips. ? Trouble getting an erection. ? Weakness or numbness in the legs or feet. How is this diagnosed? This condition can be diagnosed with: ? A digital rectal exam. For this exam, a health care provider inserts a gloved finger into the rectum to feel the prostate gland. ? A blood test called a prostate-specific antigen (PSA) test. ? A procedure in which a sample of tissue is taken from the prostate and checked under a microscope (prostate biopsy). ? An imaging test called transrectal ultrasonography. Once the condition is diagnosed, tests will be done to determine how far the cancer has spread. This is called staging the cancer. Staging may involve imaging tests, such as a bone scan, CT scan, PET scan, or MRI. Stages of prostate cancer The stages of prostate cancer are as follows: ? Stage 1 (I). At this stage, the cancer is found in the prostate only. The cancer is not visible on imaging tests, and it is usually found by accident, such as during prostate surgery. ? Stage 2 (II). At this stage, the cancer is more advanced than it is in stage 1, but the cancer has not spread outside the prostate. ? Stage 3 (III). At this stage, the cancer has spread beyond the outer layer of the prostate to nearby tissues. The cancer may be found in the seminal vesicles, which are near the bladder and the prostate. ? Stage 4 (IV). At this stage, the cancer has spread to other parts of the body, such as the lymph nodes, bones, bladder, rectum, liver, or lungs. Prostate cancer grading Prostate cancer is also graded according to how the cancer cells look under a microscope. This is called the Alpa score and the total score can range from 6?10, indicating how likely it is that the cancer will spread (metastasize) to other parts of the body. The higher the score, the greater the likelihood that the cancer will spread. ? [place] 6 or lower: This indicates that the cancer cells look similar to normal prostate cells (well differentiated). ? Alpa 7: This indicates that the cancer cells look somewhat similar to normal prostate cells (moderately differentiated). ? Alpa 8, 9, or 10: This indicates that the cancer cells look very different than normal prostate cells (poorly differentiated). How is this treated? Treatment for this condition depends on several factors, including the stage of the cancer, your age, personal preferences, and your overall health. Talk with your health care provider about treatment options that are recommended for you. Common treatments include: ? Observation for early stage prostate cancer (active surveillance). This involves having exams, blood tests, and in some cases, more biopsies. For some men, this is the only treatment needed. ? Surgery. Types of surgeries include: ? Open surgery (radical prostatectomy). In this surgery, a larger incision is made to remove the prostate. ? A laparoscopic radical prostatectomy. This is a surgery to remove the prostate and lymph nodes through several small incisions. It is often referred to as a minimally invasive surgery. ? A robotic radical prostatectomy. This is laparoscopic surgery to remove the prostate and lymph nodes with the help of robotic arms that are controlled by the surgeon. ? Cryoablation. This is surgery to freeze and destroy cancer cells. ? Radiation treatment. Types of radiation treatment include: ? External beam radiation. This type aims beams of radiation from outside the body at the prostate to destroy cancerous cells. ? Brachytherapy. This type uses radioactive needles, seeds, wires, or tubes that are implanted into the prostate gland. Like external be (more content not included)... Normal [facility] Progress Note-Nurseon 2022 Progress Note-Nurse JOSE CAN :1940 Visit Date:02/05/2023 Ambulatory Visit Instructions Your Diagnosis Prostate cancer Prostate nodule BPH with obstruction/lower urinary tract symptoms Elevated PSA Tests Performed Urnls Dip Stick Auto w/o Microscopy POC 59347 Your Care Team Attending Physician - Abran OCHOA MD Primary Care Physician - MARTIR HERBERT MD This Is Your Medications List Contact prescribing physician if questions or concerns lisinopril (Co Lisinopril) simvastatin [Image Removed: STOP]Stop taking these medications acetaminophen-hydrocod one ([place] 325 mg-7.5 mg oral tablet) Procedures Performed Transrectal biopsy of prostate using ultrasound (US) guidance (12/27/2022), Transrectal biopsy of prostate using ultrasound (US) guidance (05/12/2015), Transrectal biopsy of prostate using ultrasound (US) guidance (12/29/2014), Cystoscopy (10/03/2013), Cystoscopy (09/23/2013), Transrectal biopsy of prostate using ultrasound (US) guidance (10/22/2012), Transrectal biopsy of prostate using ultrasound (US) guidance (09/12/2006), Transrectal biopsy of prostate using ultrasound (US) guidance (07/25/2005), Hemorrhoidectomy, Hiatus hernia repair. Discharge Vitals Heart Rate (Peripheral) 53 Blood Pressure 150/80 Height 69 in Height 175 cm Weight 195.8 lb Weight 89 kg BMI 29.06 What to do next Scheduled Follow-Up Appointments Sunday 8:00 AM EDT With: LADAN EDWARDS, Abran Darling Where: [facility] [place] Normal Prostate nodule\.br\ Medications\.br\ What When Instructions\.br \ Unchanged lisinopril (Co Lisinopril) Contact prescribing physician if questions or concerns \.br\ Unchanged simvastatin Contact prescribing physician if questions or concerns \.br\ \.br\ What How Much When Why Comments\.br\ Stop Taking acetaminophen-hy drocodone ([place] 325 mg-7.5 mg oral tablet) 1 Tablets By Mouth Once Prostate nodule Take 1 hour prior to procedure \.br\ Test Results\.br\ Urnls Dip Stick Auto w/o Microscopy POC 77248 (02/05/2023)\.br \ Bilirubin Urine Dipstick - Negative\.br\ Blood Urine Dipstick - Negative\.br\ Glucose Urine Dipstick - Negative\.br\ Ketones Urine Dipstick - Negative\.br\ Leukocytes Urine Dipstick - Negative\.br\ Nitrite Urine Dipstick - Negative\.br\ Protein Urine Dipstick - Negative\.br\ Specific [place] Urine Dipstick - 1.020\.br\ Urine Appearance Urine Dipstick - Clear\.br\ Urine Color Urine Dipstick - Yellow\.br\ Urobilinogen Urine Dipstick - Normal 0.2-1 EU/dl\.br\ pH Urine Dipstick - 7\.br\ Allergies\.br\ penicillin (Unknown)\.br\ sulfonamides (Unknown)\.br\ Problems\.br\ Ongoing - Any problem that you are currently receiving treatment for.\.br\ BMI 29.0-29.9,adult\ .br\ BPH with obstruction/lowe r urinary tract symptoms\.br\ Elevated PSA\.br\ Frequent urination\.br\ Prostate nodule\.br\ Historical - Any problem that you are no longer receiving treatment for.\.br\ H/O Malignant melanoma\.br\ Education Materials\.br\ Prostate Cancer\.br\ \.br\ The prostate is a small gland that produces fluid that makes up semen (seminal fluid). It is located below the bladder in men, in front of the rectum. Prostate cancer is the abnormal growth of cells in the prostate gland.\.br\ What are the causes?\.br\ The exact cause of this condition is not known.\.br\ What increases the risk?\.br\ You are more likely to develop this condition if:\.br\ ? \.br\ You are 65 years of age or older.\.br\ ? \.br\ You have a family history of prostate cancer.\.br\ ? \.br\ You have a family history of breast and ovarian cancer.\.br\ ? \.br\ You have genes that are passed from parent to child (inherited), such as BRCA1 and BRCA2.\.br\ ? \.br\ You have Beckman syndrome.\.br\ men and men of descent are diagnosed with prostate cancer at higher rates than other men. The reasons for this are not well understood and are likely due to a combination of genetic and environmental factors.\.br\ What are the signs or symptoms?\.br\ Symptoms of this condition include:\.br\ ? \.br\ Problems with urination. This may include:\.br\ ? \.br\ A weak or interrupted flow of urine.\.br\ ? \.br\ Trouble starting or stopping urination.\.br\ ? \.br\ Trouble emptying the bladder all the way.\.br\ ? \.br\ The need to urinate more often, especially at night.\.br\ ? \.br\ Blood in urine or semen.\.br\ ? \.br\ Persistent pain or discomfort in the lower back, lower abdomen, or hips.\.br\ ? \.br\ Trouble getting an erection.\.br\ ? \.br\ Weakness or numbness in the legs or feet.\.br\ How is this diagnosed?\.br\ This condition can be diagnosed with:\.br\ ? \.br\ A digital rectal exam. For this exam, a health care provider inserts a gloved finger into the rectum to feel the prostate gland.\.br\ ? \.br\ A blood test called a prostate-specifi c antigen (PSA) test.\.br\ ? \.br\ A procedure in which a sample of tissue is taken from the prostate and checked under a microscope (prostate biopsy).\.br\ ? \.br\ An imaging test called transrectal ultrasonography. \.br\ Once the condition is diagnosed, tests will be done to determine how far the cancer has spread. This is called staging the cancer. Staging may involve imaging tests, such as a bone scan, CT scan, PET scan, or MRI.\.br\ Stages of prostate cancer\.br\ The stages of prostate cancer are as follows:\.br\ ? \.br\ Stage 1 (I). At this stage, the cancer is found in the prostate only. The cancer is not visible on imaging tests, and it is usually found by accident, such as during prostate surgery.\.br\ ? \.br\ Stage 2 (II). At this stage, the cancer is more advanced than it is in stage 1, but the cancer has not spread outside the prostate.\.br\ ? \.br\ Stage 3 (III). At this stage, the cancer has spread beyond the outer layer of the prostate to nearby tissues. The cancer may be found in the seminal vesicles, which are near the bladder and the prostate.\.br\ ? \.br\ Stage 4 (IV). At this stage, the cancer has spread to other parts of the body, such as the lymph nodes, bones, bladder, rectum, liver, or lungs.\.br\ Prostate cancer grading\.br\ Prostate cancer is also graded according to how the cancer cells look under a microscope. This is called the Kear[place] score and the total score can range from 6?10, indicating how likely it is that the cancer will spread (metastasize) to other parts of the body. The higher the score, the greater the likelihood that the cancer will spread.\.br\ ? \.br\ Kearny 6 or lower: This indicates that the cancer cells look similar to normal prostate cells (well differentiated). \.br\ ? \.br\ Alpa 7: This indicates that the cancer cells look somewhat similar to normal prostate cells (moderately differentiated). \.br\ ? \.br\ Kearny 8, 9, or 10: This indicates that the cancer cells look very different than normal prostate cells (poorly differentiated). \.br\ How is this treated?\.br\ Treatment for this condition depends on several factors, including the stage of the cancer, your age, personal preferences, and your overall health. Talk with your health care provider about treatment options that are recommended for you. Common treatments include:\.br\ ? \.br\ Observation for early stage prostate cancer (active surveillance). This involves having exams, blood tests, and in some cases, more biopsies. For some men, this is the only treatment needed.\.br\ ? \.br\ Surgery. Types of surgeries include:\.br\ ? \.br\ Open surgery (radical prostatectomy). In this surgery, a larger incision is made to remove the prostate.\.br\ ? \.br\ A laparoscopic radical prostatectomy. This is a surgery to remove the prostate and lymph nodes through several small incisions. It is often referred to as a minimally invasive surgery.\.br\ ? \.br\ A robotic radical prostatectomy. This is laparoscopic surgery to remove the prostate and lymph nodes with the help of robotic arms that are controlled by the surgeon.\.br\ ? \.br\ Cryoablation. This is surgery to freeze and destroy cancer cells.\.br\ ? \.br\ Radiation treatment. Types of radiation treatment include:\.br\ ? \.br\ External beam radiation. This type aims beams of radiation from outside the body at the prostate to destroy cancerous cells.\.br\ ? \.br\ Brachytherapy. This type uses radioactive needles, seeds, wires, or tubes that are implanted into the prostate gland. Like external beam radiation, brachytherapy destroys cancerous cells. An advantage is that this type of radiation limits the damage to surrounding tissue and has fewer side effects.\.br\ ? \.br\ Chemotherapy. This treatment kills cancer cells or stops them from multiplying. It kills both cancer cells and normal cells.\.br\ ? \.br\ Targeted therapy. This treatment uses medicines to kill cancer cells without damaging normal cells.\.br\ ? \.br\ Hormone treatment. This treatment involves taking medicines that act on testosterone, one of the male hormones, by:\ [facility] Urology Office/Clinic Noteon 02-05-2023 Urology Office/Clinic Note Chief Complaint fu to trus bx HPI Staff Follow up to review path report S/P TRUS/Bx done 01/16/23 DX: BPH & Prostate Nodule *No Urology Medications, MRI of Prostate done 12/19/22 Dysuria: no Incomplete bladder emptying: no Hematuria: no Frequency: no Urgency: no Nocturia: 1x night Stream: good stream Leaking: no Post void dripping: no Wearing pads/ Depends: no Urge incontinence: no Stress incontinence: no Incontinence without Sensory Awareness: no Abdominal pain: no Flank pain: no Sexual complaints: no History of Present Illness Tests Reviewed: Reviewed UA. I have reviewed and verified the staff HPI to be accurate for this encounter. I have reviewed the previous health record information and history for this patient from Dr. Ochoa There have been no associated fever, chills, flank pain, or blood in the urine. Denies any urinary infections since last encounter. Review of Systems PHQ Score Initial Depression Screen Score: 0 ROS - Provider Constitutional: denies weight loss, denies hot flashes. Eyes: denies eye problems. Gastrointestinal: denies nausea, denies vomiting. Cardiovascular: denies chest pain or angina. Integumentary: no dryness Musculoskeletal: denies musculoskeletal symptoms. ENMT: denies otolaryngeal symptoms. Respiratory: no shortness of breath. Heme/Lymph: denies easy bleeding tendency, denies easy bruising tendency. Psychiatric: no confusion, no anxiety. Genitourinary: denies dysuria, denies hematuria, denies discharge, denies urinary frequency, denies urinary hesitancy, mild nocturia, denies incontinence, denies genital sores, denies decreased libido, and denies erectile dysfunction. Physical Exam Vitals & Measurements HR: 53(Peripheral) BP: 150/80 HT: 69 in HT: 175 cm WT: 89 kg WT: 195.8 lb BMI: 29.06 General Appearance: alert, no distress, well nourished, well developed male Flank Pain: none. Bladder: nonpalpable. Assessment/Plan Patient presents for appointment today with his daughter Enriqueta. 1. Prostate cancer (C61: Malignant neoplasm of prostate) TRUS/BX done 01/16/2023 are positive for Prostate cancer. Kearny 3+3= 6 (4 cores) and Alpa 3 +4 (1 core). Given the cancer score and pts PSA being under 4, he does not need a Bone scan and Ct scan. The pathology report, which shows the presence of prostate cancer, was disclosed to the patient and his daughter Enriqueta in detail today. I discussed with the patient all the treatment options, including active surveillance, and repeating a prostate bx in 1 year. I discussed the radiation therapy options in great detail, including prostate brachytherapy, external beam radiation therapy, and combinations of the two. Lupron hormonal therapy was also discussed. I went over the pros and cons of each therapy today, and this [place] prostate cancer book was provided. Patient given his age, and Alpa score is not a surgical candidate for prostatectomy. Patient is very active with work and is leaning toward maybe just doing [employer]. He will need referral to Dr. Mendiola for consultation. Patient is considering waiting until he is done with [facility] in July/August. 2. Prostate nodule (N40.2: Nodular prostate without lower urinary tract symptoms) ROULA 09/01/20 - Mild induration central. Stable nodule at base. ROULA done 12/04/22 40 gm, three areas of induration, left base, left mid, and right base. 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 UA done today is negative for infection and blood. Patient gets up 1 time at night to urinate. Elevated PSA (R97.20: Elevated prostate specific antigen [PSA]) PSA: 08/05/20 - 3.54 11/30/22 - 3.1 & 21.9% I have reviewed the previous health history and record for this patient with Dr. Ochoa. Will refer to Dr. Mendiola for [employer] implant in . Follow-up With When Contact Information Abran OCHOA MD, URL In 6 months [facility] [address], [place] [address]- [phone] Additional Instructions: Will refer to Dr. Mendiola Patient Education Prostate Cancer I, Christina Lima, personally scribed for Dr. Ochoa on 02/05/2023 09:36:02. . Documentation recorded by the scribe, aaron Lima, accurately reflects the services(s) I performed and decisions made by me. Authenticated by Dr. Ochoa on 02/05/2023 09:38:54. Problem List/Past Medical History Ongoing BMI 29.0-29.9,adult BPH with obstruction/lower urinary tract symptoms Elevated PSA Frequent urination Prostate nodule Historical H/O Malignant melanoma Procedure/Surgical History Transrectal biopsy of prostate using ultrasound (US) guidance (12/27/2022), Transrectal biopsy of prostate using ultrasound (US) guidance (05/12/2015), Transrectal biopsy of (more content not included)... Normal [facility] Comment on above: Result Comment: Elec tronically Signed By: Abran OCHOA MD\.br\Date and Time Signed: 02/05/23 09:38 EDT\.br\Electronically Co-Signed By: Christina Lima\.br\Date and Time Co-Signed: 02/05/23 09:36 EDT Prostate Histology ([facility]) on 01-29-2023 Prostate Histology Diagnosis Info Invalid Interpretation Code [facility] Comment on above: Result Comment: A:Pr ostate,Left Lateral Base:Needle Biopsy Interpretation - - Benign prostatic tissue. MicroScopic Description - B:Prostate,Left Lateral Mid:Needle Biopsy Interpretation - - Benign prostatic tissue with patchy chronic inflammation. MicroScopic Description - C:Prostate,Left Lateral [place]:Needle Biopsy Interpretation - - Benign prostatic tissue. MicroScopic Description - D:Prostate,Left Base:Needle Biopsy Interpretation - - Acinar adenocarcinoma of prostate; Alpa score 6(3+3); Tumor measures 0.5 cm in length; 25% of the core involved by tumor; 1 of 2 cores involved (see comment). MicroScopic Description - E:Prostate,Left Mid:Needle Biopsy Interpretation - - Benign prostatic tissue with patchy chronic inflammation. MicroScopic Description - F:Prostate,Left [place]:Needle Biopsy Interpretation - - Benign prostatic tissue. MicroScopic Description - G:Prostate,Right Base:Needle Biopsy Interpretation - - Acinar adenocarcinoma of prostate; Kearny score 6(3+3); Tumor measures 0.2 cm in length; 12% of the core involved by tumor; 1 of 1 core involved (see comment) MicroScopic Description - H:Prostate,Right Mid:Needle Biopsy Interpretation - - Benign prostatic tissue with patchy chronic inflammation. MicroScopic Description - I:Prostate,Right [place]:Needle Biopsy Interpretation - - Acinar adenocarcinoma of prostate; Alpa score 7(3+4); Tumor measures 0.21 cm in length; 26% of the core involved by tumor; 1 of 1 core involved (see comment). MicroScopic Description - J:Prostate,Right Lateral Base:Needle Biopsy Interpretation - - Acinar adenocarcinoma of prostate; [place] score 6(3+3); Tumor measures 0.35 cm in length; 25% of the core involved by tumor; 1 of 1 core involved (see comment). MicroScopic Description - K:Prostate,Right Lateral Mid:Needle Biopsy Interpretation - - Benign prostatic tissue with patchy chronic inflammation. MicroScopic Description - L:Prostate,Right Lateral [place]:Needle Biopsy Interpretation - - Acinar adenocarcinoma of prostate; Alpa score 6(3+3); Tumor measures 0.15 cm in length; 9% of the core involved by tumor; 1 of 1 core involved (see comment). MicroScopic Description - Gross Description Site ID:A color cabrera-white fixative Formalin cores 1 units cm Site ID:B color cabrera-white fixative Formalin cores 2 units cm Site ID:C color cabrera-white fixative Formalin cores 2 units cm Site ID:D color cabrera-white fixative Formalin cores 2 units cm Site ID:E color cabrera-white fixative Formalin cores 2 units cm Site ID:F color cabrera-white fixative Formalin cores 1 units cm Site ID:G color cabrera-white fixative Formalin cores 1 units cm Site ID:H color cabrera-white fixative Formalin cores 1 units cm Site ID:I color cabrera-white fixative Formalin cores 1 units cm Site ID:J color cabrera-white fixative Formalin cores 1 units cm Site ID:K color cabrera-white fixative Formalin cores 1 units cm Site ID:L color cabrera-white fixative Formalin cores 1 units cm Highest grade group: Alpa score 3+4=7, grade group 2. Highest percentage of core involvement: 26 % Cribriform pattern 4: Absent D, G, I, J and L: Adenocarcinoma cells demonstrate lack of basal cell lining per immunostain HMW cytokeratins /p63 and luminal positivity for P504S (PIN4 immunostain). This Grade Group system was recently endorsed by both the International Society of Urological Pathology (ISUP, 2015) and the World Health Organization (WHO). The use of one or more reagents in the above tests is regulated as an analytic specific reagent (ASR). The performance characteristics were determined by the [employer]. They have not been cleared by the [place] Food and Drug Administration. The FDA has determined that such clearance or approval is not necessary. Appropriate positive and negative controls are performed and are acceptable. Electronically signed by : on: 01/29/2023 13:43:29 Performed By: #### 1 [id number] ####[facility] [address] [place] [address] Consent for Procedure/Surger yon 01-16-2023 Consent for Procedure/Surgery [id number] 0CD:127 Normal [facility] Consent for Treatmenton 12-24 Consent for Treatment [id number] 0CD:127 Normal [facility] IntraOperative Documentson 0 01-16-2023 IntraOperative Documents [id number] 0CD:127 [facility] Main OR Intraoperative Recor don 01-16-2023 Main OR Intraoperative Record IntraOp Document Type FTURO Summary Primary Physician: Abran OCHOA MD Finalized Date/Time: 01/16/23 09:23:49 Pt. Name: JOSE CAN /Sex: 1940 Male Med Rec #: [id number] Physician: Abran OCHOA MD Financial #: [id number] Pt. Type: O Room/Bed: / Admit/Disch: 01/16/23 08:00:37 - Institution: Case Times FTURO Entry 1 Patient Times In Room 01/16/23 09:05:00 Out Room 01/16/23 09:27:00 Procedure Times Start 01/16/23 09:08:00 Stop 01/16/23 09:22:00 Anesthesia Times Last Modified By: Helga LANCE, Kacie SEGUNDO 01/16/23 09:22:56 Case Attendance FTURO Entry 1 Entry 2 Entry 3 Case Attendee Abran OCHOA MD RN, CARLENEOR, Rolando PHAM, Ileana Hester Role Performed Surgeon - Primary Trap Operator - Primary Scrub - Primary Time In 01/16/23 09:05:00 01/16/23 09:05:00 01/16/23 09:05:00 Time Out 01/16/23 09:27:00 01/16/23 09:27:00 01/16/23 09:27:00 Procedure PROSTATE TRANSRECTAL PROSTATE TRANSRECTAL PROSTATE TRANSRECTAL ULTRASOUND WITH BIO(.) ULTRASOUND WITH BIO(.) ULTRASOUND WITH BIO(.) Sherif wright rn orienting Last Modified By: Helga LANCE, CNOR, Helga RN, CNOR, Helga LANCE, CARLENEOR, Kacie 01/16/23 Kacie 01/16/23 Kacie 01/16/23 09:23:28 09:22:58 09:22:58 Surgical Procedures FTURO Entry 1 Procedure Description Procedure PROSTATE TRANSRECTAL Modifiers . ULTRASOUND WITH BIOPSY Surgeon Description PROSTATE TRANSRECTAL ULTRASOUND WITH BIOPSY Primary Procedure Yes Primary Surgeon Abran OCHOA MD Start 01/16/23 09:08:00 Stop 01/16/23 09:22:00 Anesthesia Type Local Surgical Service Urology Wound Class 2 - Clean-Contaminated Last Modified By: Helga LANCE, CARLENEOR, Kacie 01/16/23 09:23:01 General Case Data FTURO Pre-Care Text: Classifies surgical wound, implements aseptic technique, initiates traffic control Entry 1 Case Information OR URO 1 FT Case Level None Wound Class 2 - Clean-Contaminated Specialty Urology Preop Diagnosis PROSTATE NODULE Postop Same As Preop Yes PROSTATE LESION Postop Diagnosis PROSTATE NODULE Outcomes Met? Yes PROSTATE LESION Last Modified By: SANYA Partida RN, Ruthann 01/16/23 09:13:22 Post-Care Text: The patient is free from signs and symptoms of infection EU IntraOp - FTURO Pre-Care Text: Implements protective measures prior to operative or invasive procedure, confirms identity before the operative or invasive procedure, verifies operative procedure, surgical site, and laterality Entry 1 EU Perioperative Protocols Procedure(s) PROSTATE TRANSRECTAL Patient Identity Birthday, ID Band ULTRASOUND WITH BIO(.) Verified (select at Check, Patient least 2): Participation Consents / H and P HandP, Surgery/Procedure Operative Site N/A Verified Consent Marking Verified Surgical Site Yes Laterality Verified n/a Verified Procedure Verified Yes Correct Patient Yes Position Verified Availability Equipment, Medication Time Out LADAN EDWARDS, Abran Darling, Verified (If Participants Helga LANCE, CARLENEOR, Applicable) Rolando Hester CST, Ileana Holliday Time Out Complete 01/16/23 09:07:00 Allergies Reviewed? Yes Allergies Reviewed Self/Patient With Body Position Lateral, right side up Prep Area none Prep Agents None Skin. Condition Unable to Visualize Additional Tissue Specimens Comment 12 specimens sent to p4 Specimens Collected Vitals - EU Blood Pressure Pulse Respirations SPO2 EBL 0 IandO - EU Total Intake 0 mL Total Output 0 mL Outcomes Met? Yes Last Modified By: SANYA Partida RN, Ruthann 01/16/23 09:17:11 Post-Care Text: The patient is free from signs and symptoms of injury caused by extraneous objects Sign Out FTURO Entry 1 Before Patient Leaves OR Nurse verbally Yes Nurse verbally n/a confirms with the confirms with the team the name of team that the procedure(s) instrument, sponge, recorded and needle counts are correct (or N/A) Nurse verbally Yes Nurse verbally n/a confirms with the confirms with the team how the team whether there specimen is labeled are any equipment (including patient problems to be name), if applicable addressed Sign Out Complete 01/16/23 09:26:00 Last Modified By: SANYA Partida RN, Ruthann 01/16/23 09:23:06 Case Comments Finalized By: SANYA Partida RN, Ruthann Document Signatures Signed By: SANYA Partida RN, Ruthann 01/16/23 09:23 SANYA Partida RN, Ruthann 01/16/23 09:23 Normal [facility] Main OR Preoperative Recordo n 01-16-2023 Main OR Preoperative Record Holding Area Document Type FTURO Summary Primary Physician: Abran OCHOA MD Finalized Date/Time: 01/16/23 09:17:56 Pt. Name: RUSLAN CANEduardo Oh D.O.B./Sex: 1940 Male Med Rec #: [id number] Physician: Abran OCHOA MD Financial #: [id number] Pt. Type: O Room/Bed: / Admit/Disch: 01/16/23 08:00:37 - Institution: Case Times Holding FTURO Pre-Care Text: Verifies consent for planned procedure, identifies individual values and wishes concerning care, includes family members in perioperative teaching Secures patient's records' belongings, and valuables, maintains patient's dignity and privacy, and maintains patient confidentiality Entry 1 In Holding 01/16/23 08:10:00 Outcomes Met? Yes Last Modified By: Atiya Ken LPN 01/16/23 08:10:28 Post-Care Text: The patient participates in decisions affecting his or her perioperative plan of care The patient's right to privacy is maintained Surgery Checklist FTURO Entry 1 Patient Birthday, Patient Procedure Surgical Consent, With Identification: Participation Verification: Patient NPO after Midnight: No Date/Time: 01/16/23 08:11:00 Personal Items: Glasses, Jewelry Personal Items clothes Comment: Limitations: na Complaints of Pain: No Pain Comment: na Skin Integrity Intact, Spelter, Warm, & Dry Vitals - EU Blood Pressure 147/71 Pulse 55 bpm Respirations 18 br/min SPO2 98 % RN Reviewed Yes Last Modified By: SANYA Partida RN, Ruthann 01/16/23 09:17:53 General Comments: temp:97.2 Finalized By: Helga RN, CNOR, Kacie Document Signatures Signed By: Jesus Manuel AYON Atiya M 01/16/23 08:14 Helga LANCE, Kacie SEGUNDO 01/16/23 09:17 Normal [facility] Operative Reporton Operative Report Patient: JOSE CAN Age: 82 years Sex: Male : 1940 Associated Diagnoses: None Author: Abran OCHOA MD Procedure Operative Information Details: Date/ Time: 01/16/2023 09:28:00. Pre-Op Dx: Prostate Nodule without Symptoms - N40.2. Post-Op Dx: Same. Anesthesia Type: Local, Periprostatic Nerve Block. Procedure: Transrectal Ultrasound and Transrectal Ultrasound-Guided Biopsy of the Prostate. Complications: None. Risks/Benefits/Informe d Consent: Surgical risks, benefits, details of the procedure have been explained to the patient, Full informed consent has been obtained. Intraoperative Information Prepped: The patient was brought to the office suite, placed in the modified left lateral Cobb position, The patient was draped appropriately, 80 mg Gentamicin IM injection administered. Procedure: Then 2% Xylocaine jelly was used for intrarectal anesthesia, After waiting several minutes, a well lubricated ultrasound probe was introduced per rectum, The prostate was carefully evaluated in the AP and Sagittal views. Volume: 35 CC. Specimens Removed: A total of 12 biopsies were taken, 6 from each side, and sent to pathology, 2 additional biopsies were taken from the mid aspect where his nodule and PI-RADS 4 lesion were found.. Devices Implanted: None. Postoperative Information Discharge: The patient tolerated the procedure well and was discharged home in satisfactory condition, The patient was instructed to (Finish antibiotics, Avoid strenuous activity, Go to the emergency room for gross bleeding, fever, or chills). Radiology Report Procedure: Transrectal Ultrasound of the Prostate, Transrectal US guided needle biopsy of the prostate. Narrative: Ultrasound probe is introduced and performed in the longitudinal and transverse plains, The gland measures (50 MM Length, 43 MM Width, 31 MM Depth, with a calculated volume of 35 CC), The prostatic capsule and seminal vesicles appear to be within normal limits, The peripheral zone demonstrates Hypoechoic area mid aspect, Rest of the prostate demonstrates No abnormalities, Ultrasound guidance was then utilized to obtain 12 biopsies, These were sent to pathology for evaluation, A total of 14 biopsies was taken and sent to pathology.. [facility] Comment on above: Result Comment: Lou kuhn Signed By: LADAN EDWARDS, Abran Herrera\Date and Time Signed: 01/16/23 09:30 EDT Patient Educationon 01-17-20 Patient Education Custom Transrectal Ultrasound of the Prostate with US guided biopsy ? Even though there are no visible incisions, multiple prostate biopsies have been taken through the rectum and you need to follow some instructions to minimize the risks of bleeding. ? You may see some blood in your urine and stool for up to 1 week (and blood in the semen for several months) ? Diet -You may resume your normal diet, but you may want to avoid alcohol, carbonated drinks, caffeine, and spicy foods, which may increase the irritation from the surgery. -Drink plenty of water to keep the urine clear. ? Activity -You should limit any physical activity for about 48 hours -No heavy lifting or straining (10 pound limit) -No driving a car and limit long car rides for 2 days -No strenuous exercise -No sexual intercourse until this is discussed with your doctor ? Bowels -Try to keep your bowel movements soft to minimize straining to have a bowel movement. -You may use a stool softener or over the counter laxative if needed -Difficult bowel movement may lead to straining and bleeding from the prostate ? Medications -You may resume your home medications unless instructed otherwise -Hold aspirin, ibuprofen, Coumadin (warfarin) and other blood thinners for about two days or until there is no active bleeding unless otherwise instructed -Finish the antibiotic which you have already started ? Things to watch for which would require an Emergency Room visit or call 911: (this is not a complete list) -Persistent or heavy bleeding or blood clots from the rectum or in the urine -Inability to urinate -Fever over 101.5 degrees Fahrenheit, with or without chills -Severe drug reactions with itching, hives or rash -Tenderness or swelling of the calves, chest pain, or shortness of breath ? Please call the office to arrange for your post-operative appointment in 1-2 weeks [phone] or [phone] [facility] Prostate Histology ([facility]) on 01-16-2023 PH Method of Extraction Needle Biopsy Normal [facility] Comment on above: Performed By: #### 1 [id number] ####[facility] [address] [place] [address] PH Number of Jars 2 Invalid Interpretation Code [facility] Comment on above: Performed By: #### 1 [id number] ####[facility] [address] [place] [address] PH Specimen 1 L Apx Prostate Normal [facility] Comment on above: Performed By: #### 1 [id number] ####[facility] [address] [place] [address] PH Specimen 10 R Lat Bse [facility]st [facility] Comment on above: Performed By: #### 1 [id number] ####[facility] [address] [place] [address] PH Specimen 11 R Lat Mid Pr 1 Normal [facility] Comment on above: Performed By: #### 1 [id number] ####[facility] [address] [place] [address] PH Specimen 12 R Mid Prost 1 Normal [facility] Comment on above: Performed By: #### 1 [id number] ####[facility] [address] [place] [address] PH Specimen 2 L Base Prostate Normal [facility] Comment on above: Performed By: #### 1 [id number] ####[facility] [address] [place] [address] PH Specimen 3 L Lat Apx Prost Normal [facility] Comment on above: Performed By: #### 1 [id number] ####[facility] [address] [place] [address] PH Specimen 4 L Lat Bse Prost Normal [facility] Comment on above: Performed By: #### 1 [id number] ####[facility] [address] [place] [address] PH Specimen 5 L Mid Prost 1 Normal [facility] Comment on above: Performed By: #### 1 [id number] ####[facility] [address] [place] [address] PH Specimen 6 L Lat Mid Pr 1 Normal [facility] Comment on above: Performed By: #### 1 [id number] ####[facility] [address] [place] [address] PH Specimen 7 R Apx Prostate Normal [facility] Comment on above: Performed By: #### 1 [id number] ####[facility] [address] [place] [address] PH Specimen 8 R Base Prostate Normal [facility] Comment on above: Performed By: #### 1 [id number] ####[facility] [address] [place] [address] PH Specimen 9 R Lat Apx Prost Normal [facility] Comment on above: Performed By: #### 1 [id number] ####[facility] [address] [place] [address] PH Type of Service Technical Only Normal [facility] Comment on above: Performed By: #### 1 [id number] ####[facility] [address] [facility] [address] RAD - MRI Reporton 3 RAD - MRI Report [id number] 0CD:127 Normal [facility] Creatinine (Bld) [Mass/Vol]O rdered By: Abran Ochoa on 12-19-2022 Creatinine [Mass/Vol] 0.9 mg/dL 0.6-1.[address] [facility] Comment on above: ER/ESD physician is notified/shown all ISTAT results.Critical values may be confirmed by laboratory testing ifdeemed necessary by ER attending doctor. MR prostate wo/w conon 12-19 MR prostate wo/w con [facility] Main [address] [address] MRI Report Signed Patient: Jose Can MR#: [id number] : 1940 Acct:[id number] Age/Sex: 82 / M ADM Date: 12/19/22 Loc: Room: Type: [facility] Attending Dr: Abran Ochoa MD Copies to: Abran Ochoa MD Ordering Provider: Abran Ochoa MD Date of Service: 12/19/22 MR/MR prostate wo/w con: N40.2 EXAMINATION: MR prostate wo/w con HISTORY: Elevated PSA. COMPARISON: NONE TECHNIQUE: Multiparametric imaging of the prostate gland was performed with IV contrast. FINDINGS: Examination is suboptimal due to motion. The small [id number] T2-weighted images are significantly limited. Prostate Dimensions: 3.9 x 3.5 x 4.7 cm. Prostate Volume: 34 mL Peripheral Zone: Heterogenous inT2 signal suggestive of prior prostatitis. A focal area of T2 hypointensity identified involving the posterior aspect of the left peripheral zone at the level of the mid gland measuring approximately 7 x 4 mm with associated restricted diffusion and low ADC value. Please see series 4 image 17, series 650 image 15 and series 600 image 15. Central/Transitional Zone: BPH changes. Seminal Vesicles: Unremarkable Neurovascular bundles: Unremarkable. Lymphadenopathy: No evidence of lymphadenopathy. Bladder: No focal lesion. Bowel: Diverticulosis. Peritoneal Cavity: No free fluid. Bones: Heterogenous bone marrow signal without focal lesion. MR/MR prostate wo/w con IMPRESSION: Significantly limited examination due to motion. A focal area of T2 hypointensity identified involving the posterior aspect of the left peripheral zone at the level of the mid gland measuring approximately 7 x 4 mm with associated restricted diffusion and low ADC value. Please see series 4 image 17, series 650 image 15 and series 600 image 15. PI-RADS 4. Targeting of this area on biopsy is recommended. Impression dictated by: Ede Blank Jr., D.O.12/19/2022 12:05 PM Dictation Location: [place] [address] Transcribed By: SAJAN 12/19/22 1205 Dictated By: Ede Blank Jr, DO 12/19/22 1150 Signed By: 12/19/22 1205 [facility] Ambulatory Visit Summaryon 0 12-04-2022 Ambulatory Visit Summary JOSE CAN :1940 Visit Date:12/04/2022 Ambulatory Visit Instructions Your Diagnosis BPH with obstruction/lower urinary tract symptoms Prostate nodule Tests Performed Urnls Dip Stick Auto w/o Microscopy POC 87258 Your Care Team Attending Physician - Abran OCHOA MD Primary Care Physician - MARTIR HERBERT MD This Is Your Medications List Contact prescribing physician if questions or concerns lisinopril (Co Lisinopril) simvastatin Procedures Performed Transrectal biopsy of prostate using ultrasound (US) guidance (05/12/2015), Transrectal biopsy of prostate using ultrasound (US) guidance (12/29/2014), Cystoscopy (10/03/2013), Cystoscopy (09/23/2013), Transrectal biopsy of prostate using ultrasound (US) guidance (10/22/2012), Transrectal biopsy of prostate using ultrasound (US) guidance (09/12/2006), Transrectal biopsy of prostate using ultrasound (US) guidance (07/25/2005), Hemorrhoidectomy, Hiatus hernia repair. Discharge Vitals Heart Rate (Peripheral) 64 Blood Pressure 149/70 Height 175 cm Height 69 in Weight 89 kg Weight 195.8 lb BMI 29.06 What to do next You Need to Schedule the Following Appointments Follow Up with LADAN EDWARDS, Abran Darling, ISSAC When: Where: [facility] [address] [place] [address]- Medications What When Instructions Unchanged lisinopril (Co Lisinopril) Contact prescribing physician if questions or concerns Unchanged simvastatin Contact prescribing physician if questions or concerns Test Results Urnls Dip Stick Auto w/o Microscopy POC 49849 (12/04/2022) Bilirubin Urine Dipstick - Negative Blood Urine Dipstick - Negative Glucose Urine Dipstick - Negative Ketones Urine Dipstick - Negative Leukocytes Urine Dipstick - Negative Nitrite Urine Dipstick - Negative Protein Urine Dipstick - Negative Specific [place] Urine Dipstick - >=1.030 Urine Appearance Urine Dipstick - Clear Urine Color Urine Dipstick - Yellow Urobilinogen Urine Dipstick - Normal 0.2-1 EU/dl pH Urine Dipstick - 5.5 Allergies penicillin (Unknown) sulfonamides (Unknown) Problems Ongoing - Any problem that you are currently receiving treatment for. BMI 29.0-29.9,adult BPH with obstruction/lower urinary tract symptoms Elevated PSA Frequent urination Prostate nodule Historical - Any problem that you are no longer receiving treatment for. H/O Malignant melanoma Education Materials Benign Prostatic Hyperplasia Benign prostatic hyperplasia (BPH) is an enlarged prostate gland that is caused by the normal aging process and not by cancer. The prostate is a walnut-sized gland that is involved in the production of semen. It is located in front of the rectum and below the bladder. The bladder stores urine and the urethra is the tube that carries the urine out of the body. The prostate may get bigger as a man gets older. An enlarged prostate can press on the urethra. This can make it harder to pass urine. The build-up of urine in the bladder can cause infection. Back pressure and infection may progress to bladder damage and kidney (renal) failure. What are the causes? This condition is part of a normal aging process. However, not all men develop problems from this condition. If the prostate enlarges away from the urethra, urine flow will not be blocked. If it enlarges toward the urethra and compresses it, there will be problems passing urine. What increases the risk? This condition is more likely to develop in men over the age of 50 years. What are the signs or symptoms? Symptoms of this condition include: ? Getting up often during the night to urinate. ? Needing to urinate frequently during the day. ? Difficulty starting urine flow. ? Decrease in size and strength of your urine stream. ? Leaking (dribbling) after urinating. ? Inability to pass urine. This needs immediate treatment. ? Inability to completely empty your bladder. ? Pain when you pass urine. This is more common if there is also an infection. ? Urinary tract infection (UTI). How is this diagnosed? This condition is diagnosed based on your medical history, a physical exam, and your symptoms. Tests will also be done, such as: ? A post-void bladder scan. This measures any amount of urine that may remain in your bladder after you finish urinating. ? A digital rectal exam. In a rectal exam, your health care provider checks your prostate by putting a lubricated, gloved finger into your rectum to feel the back of your prostate gland. This exam detects the size of your gland and any abnormal lumps or growths. ? An exam of your urine (urinalysis). ? A prostate specific antigen (PSA) screening. This is a blood test used to screen for prostate cancer. ? An ultrasound. This test uses sound waves to electronically produce a picture of your prostate gland. Your health care provider may refe (more content not included)... Normal [facility] Patient Educationon 12-05-19 Patient Education Urology Benign Prostatic Hyperplasia Benign prostatic hyperplasia (BPH) is an enlarged prostate gland that is caused by the normal aging process and not by cancer. The prostate is a walnut-sized gland that is involved in the production of semen. It is located in front of the rectum and below the bladder. The bladder stores urine and the urethra is the tube that carries the urine out of the body. The prostate may get bigger as a man gets older. An enlarged prostate can press on the urethra. This can make it harder to pass urine. The build-up of urine in the bladder can cause infection. Back pressure and infection may progress to bladder damage and kidney (renal) failure. What are the causes? This condition is part of a normal aging process. However, not all men develop problems from this condition. If the prostate enlarges away from the urethra, urine flow will not be blocked. If it enlarges toward the urethra and compresses it, there will be problems passing urine. What increases the risk? This condition is more likely to develop in men over the age of 50 years. What are the signs or symptoms? Symptoms of this condition include: ? Getting up often during the night to urinate. ? Needing to urinate frequently during the day. ? Difficulty starting urine flow. ? Decrease in size and strength of your urine stream. ? Leaking (dribbling) after urinating. ? Inability to pass urine. This needs immediate treatment. ? Inability to completely empty your bladder. ? Pain when you pass urine. This is more common if there is also an infection. ? Urinary tract infection (UTI). How is this diagnosed? This condition is diagnosed based on your medical history, a physical exam, and your symptoms. Tests will also be done, such as: ? A post-void bladder scan. This measures any amount of urine that may remain in your bladder after you finish urinating. ? A digital rectal exam. In a rectal exam, your health care provider checks your prostate by putting a lubricated, gloved finger into your rectum to feel the back of your prostate gland. This exam detects the size of your gland and any abnormal lumps or growths. ? An exam of your urine (urinalysis). ? A prostate specific antigen (PSA) screening. This is a blood test used to screen for prostate cancer. ? An ultrasound. This test uses sound waves to electronically produce a picture of your prostate gland. Your health care provider may refer you to a specialist in kidney and prostate diseases (urologist). How is this treated? Once symptoms begin, your health care provider will monitor your condition (active surveillance or watchful waiting). Treatment for this condition will depend on the severity of your condition. Treatment may include: ? Observation and yearly exams. This may be the only treatment needed if your condition and symptoms are mild. ? Medicines to relieve your symptoms, including: ? Medicines to shrink the prostate. ? Medicines to relax the muscle of the prostate. ? Surgery in severe cases. Surgery may include: ? Prostatectomy. In this procedure, the prostate tissue is removed completely through an open incision or with a laparoscope or robotics. ? Transurethral resection of the prostate (TURP). In this procedure, a tool is inserted through the opening at the tip of the penis (urethra). It is used to cut away tissue of the inner core of the prostate. The pieces are removed through the same opening of the penis. This removes the blockage. ? Transurethral incision (TUIP). In this procedure, small cuts are made in the prostate. This lessens the prostate's pressure on the urethra. ? Transurethral microwave thermotherapy (TUMT). This procedure uses microwaves to create heat. The heat destroys and removes a small amount of prostate tissue. ? Transurethral needle ablation (TUNA). This procedure uses radio frequencies to destroy and remove a small amount of prostate tissue. ? Interstitial laser coagulation (ILC). This procedure uses a laser to destroy and remove a small amount of prostate tissue. ? Transurethral electrovaporization (TUVP). This procedure uses electrodes to destroy and remove a small amount of prostate tissue. ? Prostatic urethral lift. This procedure inserts an implant to push the lobes of the prostate away from the urethra. Follow these instructions at home: ? Take tefx-jfq-vvyaizd and prescription medicines only as told by your health care provider. ? Monitor your symptoms for any changes. Contact your health care provider with any changes. ? Avoid drinking large amounts of liquid before going to bed or out in public. ? Avoid or reduce how much caffeine or alcohol you drink. ? Give yourself time when you urinate. ? Keep all follow-up visits as told by your health care provider. This is important. Contact a health care provider if: ? You have unexplained back pain. ? Your symptoms do not get better with treatment. ? You d (more content not included)... Normal [facility] Urology Office/Clinic Noteon 12-04-2022 Urology Office/Clinic Note Chief Complaint 2 year follow up with PSA and ROULA HPI Staff Patient is here for a 2 year follow up w/PSA done 10-17-22 PSA 3.1 & 21.9% Previous Dx: BPH, elevated PSA, Prostate nodule and frequent urination. Dysuria: no Incomplete bladder emptying: no Hematuria: no Frequency: every 3 hours Urgency: no Nocturia: 1x Stream: good, able to start and stop Leaking: no Post void dripping: no Wearing pads/ Depends: no Urge incontinence: no Stress incontinence: no Incontinence without Sensory Awareness: no Abdominal pain: no Flank pain: no History of Present Illness Tests reviewed: reviewed UA, PSA. I have reviewed the previous health record information and history for this patient from Dr. Ochoa. I have reviewed and verified the staff HPI to be accurate for this encounter. There have been no associated fever, chills, flank pain, or blood in the urine. Denies any urinary infections since last encounter. Review of Systems PHQ Score Initial Depression Screen Score: 0 ROS - Provider Constitutional: denies weight loss, denies hot flashes. Eyes: denies eye problems. Gastrointestinal: denies nausea, denies vomiting. Cardiovascular: denies chest pain or angina. Integumentary: no dryness Musculoskeletal: denies musculoskeletal symptoms. ENMT: denies otolaryngeal symptoms. Respiratory: no shortness of breath. Heme/Lymph: denies easy bleeding tendency, denies easy bruising tendency. Psychiatric: no confusion, no anxiety. Genitourinary: See HPI. Physical Exam Vitals & Measurements HR: 64(Peripheral) BP: 149/70 HT: 69 in HT: 175 cm WT: 89 kg WT: 195.8 lb BMI: 29.06 General Appearance: alert, no distress, well nourished, well developed male. Genitourinary: normal scrotum, normal testes, normal urethra, normal epididymis, normal vas deferens/spermatic cord. Flank Pain: none. Bladder: nonpalpable. Prostate: 40 gm, three areas of induration, left base, left mid, and right base. Assessment/Plan 1. BPH with obstruction/lower urinary tract symptoms (N40.1: Benign prostatic hyperplasia with lower urinary tract symptoms) PSA: 08/05/20 - 3.54 11/30/22 - 3.1 & 21.9% UA today negative for blood and infection. Pt not taking any BPH meds. Voiding well. Feels he empties completely. PSA decreased from prior, little concern for prostate cancer. Denies any known family hx of prostate cancer. Discussed d/c PSA screening pending normal ROULA today or MRI of the prostate as well as starting med to help with nocturia (1x/night). Pt states he would rather void at night instead of starting new med. 2. Prostate nodule (N40.2: Nodular prostate without lower urinary tract symptoms) ROULA 09/01/20 - Mild induration central. Stable nodule at base. ROULA today 40 gm, three areas of induration, left base, left mid, and right base. Based on exam, can either check ROULA again in 1 year or proceed with MRI. Follow up after MRI or sooner if needed. Pt understands and agrees with plan. -MRI of prostate Follow-up With When Contact Information LADAN EDWARDS, Abran Darling, [facility] [address] [place] [address]- Additional Instructions: schedule MRI Patient Education Benign Prostatic Hyperplasia IDebi, personally scribed for Dr. Ochoa on 12/04/2022 12:53:06. . Documentation recorded by the scribe, Debi Vidal, accurately reflects the services(s) I performed and decisions made by me. Authenticated by Dr. Ochoa on 12/04/2022 12:54:43. Problem List/Past Medical History Ongoing BMI 29.0-29.9,adult BPH with obstruction/lower urinary tract symptoms Elevated PSA Frequent urination Prostate nodule Historical H/O Malignant melanoma Procedure/Surgical History Transrectal biopsy of prostate using ultrasound (US) guidance (05/12/2015), Transrectal biopsy of prostate using ultrasound (US) guidance (12/29/2014), Cystoscopy (10/03/2013), Cystoscopy (09/23/2013), Transrectal biopsy of prostate using ultrasound (US) guidance (10/22/2012), Transrectal biopsy of prostate using ultrasound (US) guidance (09/12/2006), Transrectal biopsy of prostate using ultrasound (US) guidance (07/25/2005), Hemorrhoidectomy, Hiatus hernia repair. Medications Co Lisinopril simvastatin Allergies penicillin (Unknown) sulfonamides (Unknown) Social History Tobacco Never (less than 100 in lifetime) Tobacco Use:. Never Smokeless Tobacco Use:., 12/04/2022 Immunizations Vaccine Date Status influenza virus vaccine, inactivated 06/28/2020 Recorded Lab Results Test Name Test Result Date/Time PSA, External 3.1 ng/mL 11/30/2022 13:13 EST PSA, External 3.540 ng/mL 08/05/2020 08:43 EST PSA Percent, External 21.9 % 11/30/2022 13:13 EST Ambulatory Point of Care Results Bilirubin Urine Dipstick: Negative (12/04/22 12:25:00) Blood Urine Dipstick: Negative (12/04/22 12:25:00) Glucose Urine Dipstick: Negative (12/04/22 12:25:00) (more content not included)... Normal [facility] Comment on above: Result Comment: Elec tronically Signed By: Abran OCHOA MD\.br\Date and Time Signed: 12/04/22 12:54 EDT\.br\Electronically Co-Signed By: Debi Vidal\.br\Date and Time Co-Signed: 12/04/22 12:53 EDT Lab Reportson 10-20-2022 Lab Reports [id number] 0CD:127 Normal [facility] PSA, FREE AND TOTAL RATIOon 10-18-2022 % Free PSA 21.9 % Normal [facility] Comment on above: Result Comment: The table below lists the probability of prostate cancer for men with non-suspicious ROULA results and total PSA between 4 and 10 ng/mL, by patient age (Meir et al, SAEID 1998, 279:1542). % Free PSA 50-64 yr 65-75 yr 0.00-10.00% 56% 55% 10.01-15.00% 24% 35% 15.01-20.00% 17% 23% 20.01-25.00% 10% 20% >25.00% 5% 9% Please note: Meir et al did not make specific recommendations regarding the use of percent free PSA for any other population of men. Performed By: #### P SAFREE #### [facility] [address] [place] [address] Dr. Deisi Bush Prostate specific Ag [Mass/Vol] 3.1 ng/mL Normal 0.0-4.0 [facility] Comment on above: Result Comment: Cris DSOUZAIA methodology. . According to the [place] [employer], Serum PSA should decrease and remain at undetectable levels after radical prostatectomy. The AUA defines biochemical recurrence as an initial PSA value 0.2 ng/mL or greater followed by a subsequent confirmatory PSA value 0.2 ng/mL or greater. Values obtained with different assay methods or kits cannot be used interchangeably. Results cannot be interpreted as absolute evidence of the presence or absence of malignant disease. Performed By: #### P SAFREE #### [facility] [address] [place] [address] Dr. Deisi Bush PSA, Free 0.68 ng/mL Normal N/A [facility] Comment on above: Result Comment: Cris baker ECLIA methodology. Performed By: #### P SAFREE #### [facility] [address] [place] [address] Dr. Deisi Bush CBC AUTO DIFFon 03-04-2022 BASO # 0.0 103/ul Normal 0.0-0.1 [facility] Comment on above: Performed By: #### C BC #### [facility] [address] [place] [address] Dr. Deisi Bush Basophils/100 WBC (Bld) 0.6 % Normal 0.2-2.0 [facility] Comment on above: Performed By: #### C BC #### [facility] [address] [place] [address] Dr. Deisi Bush EO # 0.5 103/ul Normal 0.0-0.7 [facility] Comment on above: Performed By: #### C BC #### [facility] [address] [place] [address] Dr. Deisi Bush Eosinophils/100 WBC (Bld) 10.2 % Critically high 0.9-7.0 [facility] Comment on above: Performed By: #### C BC #### [facility] [address] [place] [address] Dr. Deisi Bush Erythrocyte distribution width (RBC) [Ratio] 13.4 % Normal 11.0-15.0 [facility] Comment on above: Performed By: #### C BC #### [facility] [address] [place] [address] Dr. Deisi Bush Hematocrit (Bld) [Volume fraction] 42.3 % Normal 42.0-54.0 [facility] Comment on above: Performed By: #### C BC #### [facility] [address] [place] [address] Dr. Deisi Bush Hemoglobin (Bld) [Mass/Vol] 14.1 g/dL Normal 14.0-18.0 [facility] Comment on above: Performed By: #### C BC #### [facility] [address] [place] [address] Dr. Deisi Bush IG # 0.01 10e3/ul Normal 0.00-0.03 [facility] Comment on above: Performed By: #### C BC #### [facility] [address] [place] [address] Dr. Deisi Bush IG % 0.2 % Normal 0.0-0.5 [facility] Comment on above: Performed By: #### C BC #### [facility] [address] [place] [address] Dr. Deisi Bush LYMPH # 2.4 103/ul Normal 1.2-3.8 [facility] Comment on above: Performed By: #### C BC #### [facility] [address] [place] [address] Dr. Deisi Bush Lymphocytes/100 WBC (Bld) 46.5 % Normal 20.5-60.0 [facility] Comment on above: Performed By: #### C BC #### [facility] [address] [place] [address] Dr. Deisi Bush MANUAL DIFF REQ NO Normal [facility] Comment on above: Performed By: #### C BC #### [facility] [address] [place] [address] Dr. Deisi Bush MCH (RBC) [Entitic mass] 30.5 pg Normal 25.9-34.0 [facility] Comment on above: Performed By: #### C BC #### [facility] [address] [place] [address] Dr. Deisi Bush MCHC (RBC) [Mass/Vol] 33.3 g/dL Normal 29.9-35.2 [facility] Comment on above: Performed By: #### C BC #### [facility] [address] [place] [address] Dr. Deisi Bush MCV (RBC) [Entitic vol] 91.4 fL Normal 80.0-94.0 [facility] Comment on above: Performed By: #### C BC #### [facility] [address] [place] [address] Dr. Deisi Bush MONO # 0.6 103/ul Normal 0.3-0.8 [facility] Comment on above: Performed By: #### C BC #### [facility] [address] [place] [address] Dr. Deisi Bush Monocytes/100 WBC (Bld) 10.6 % Normal 1.7-12.0 [facility] Comment on above: Performed By: #### C BC #### [facility] [address] [place] [address] Dr. Deisi Bush NEUT # 1.7 103/ul Normal 1.4-6.5 [facility] Comment on above: Performed By: #### C BC #### [facility] [address] [place] [address] Dr. Deisi Bush Neutrophils/100 WBC (Bld) 31.9 % Critically low 43.0-75.0 [facility] Comment on above: Performed By: #### C BC #### [facility] [address] [address] [address] Deisi Bush Platelet mean volume (Bld) [Entitic vol] 9.2 fL Critically low 9.5-13.5 [facility] Comment on above: Performed By: #### C BC #### [facility] [address] [place] [address] Dr. Deisi Bush PLT 219 103/ul Normal 150-450 [facility] Comment on above: Performed By: #### C BC #### [facility] [address] [place] [address] Dr. Deisi Bush RBC 4.63 106/ul Critically low 4.70-6.10 [facility] Comment on above: Performed By: #### C BC #### [facility] [address] [place] [address] Dr. Deisi Bush WBC 5.2 103/ul Normal 4.0-11.0 [facility] Comment on above: Performed By: #### C BC #### [facility] [address] [place] [address] Dr. Deisi Bush LIPID PROFILEon 03-04-2022 CHOL-HDL RATIO NORM SEE BELOW Normal [facility] Comment on above: Result Comment: 3.3 - 4.4 LOW RISK 4.4 - 7.1 AVERAGE RISK 7.1 - 11.0 MODERATE RISK >11.0 HIGH RISK Performed By: #### T SH, LIPID, CMP #### [facility] [address] [place] [address] Dr. Deisi Bush Cholesterol [Mass/Vol] 125 mg/dL Normal <=200 [facility] Comment on above: Performed By: #### T SERGIO, LIPID, CMP #### [facility] [address] [place] [address] Dr. Deisi Bush Cholesterol in HDL [Mass/Vol] 37 mg/dL Critically low 40-60 [facility] Comment on above: Performed By: #### T SH, LIPID, CMP #### [facility] [address] [address] [address] Deisi Bush Cholesterol in LDL [Mass/Vol] 75.6 mg/dL Normal [facility] Comment on above: Performed By: #### T SERGIO, LIPID, CMP #### [facility] [address] [place] [address] Dr. Deisi Bush Cholesterol.total /Cholesterol in HDL [Mass ratio] 3.4 {ratio} Normal [facility] Comment on above: Performed By: #### T SH, LIPID, CMP #### [facility] [address] [place] [address] Dr. Deisi Bush HDL NORMAL > or = 60 mg/dl - LO W CARDIOVASCULAR RISK <40 mg/dl - HIGH CARDIOVASCULAR RISK Normal [facility] Comment on above: Performed By: #### T SERGIO, LIPID, CMP #### [facility] [address] [place] [address] Dr. Deisi Bush LDL CALC NORMAL SEE BELOW Normal [facility] Comment on above: Result Comment: <100 mg/dl OPTIMAL 100 - 129 mg/dl NEAR OR ABOVE OPTIMAL 130 - 159 mg/dl BORDERLINE HIGH 160 - 189 mg/dl HIGH >190 mg/dl VERY HIGH Performed By: #### T SERGIO, LIPID, CMP #### [facility] [address] [place] [address] Dr. Deisi Bush Triglyceride [Mass/Vol] 62 mg/dL Normal <=150 [facility] Comment on above: Performed By: #### T SERGIO, LIPID, CMP #### [facility] [address] [place] [address] Dr. Deisi Bush VLDL CALC 12.4 mg/dL Normal [facility] Comment on above: Performed By: #### T SH, LIPID, CMP #### [facility] [address] [address] [address] Deisi Bush PROF 14(COMP METB)on 022 Albumin [Mass/Vol] 3.4 g/dL Normal 3.4-5.0 [facility] Comment on above: Performed By: #### T SERGIO, LIPID, CMP #### [facility] [address] [place] [address] Dr. Deisi Bush Albumin/Globulin [Mass ratio] 0.9 {ratio} Normal [facility] Comment on above: Performed By: #### T SERGIO, LIPID, CMP #### [facility] [address] [address] [address] Deisi Bush ALP [Catalytic activity/Vol] 73 U/L Normal 46-116 [facility] Comment on above: Performed By: #### T SERGIO, LIPID, CMP #### [facility] [address] [address] [address] Deisi Bush ALT [Catalytic activity/Vol] 27 U/L Normal 16-63 [facility] Comment on above: Performed By: #### T SERGIO LIPID, CMP #### [facility] [address] [place] [address] Dr. Deisi Bush Anion gap [Moles/Vol] 11.6 mmol/L Normal [facility] Comment on above: Performed By: #### T SERGIO LIPID, CMP #### [facility] [address] [address] [address] Deisi Bush AST [Catalytic activity/Vol] 22 U/L Normal 15-37 [facility] Comment on above: Performed By: #### T SERGIO LIPID, CMP #### [facility] [address] [place] [address] Dr. Deisi Bush Bilirubin [Mass/Vol] 1.1 mg/dL Critically high 0.2-1.0 [facility] Comment on above: Performed By: #### T SERGIO, LIPID, CMP #### [facility] [address] [place] [address] Dr. Deisi Bush Calcium [Mass/Vol] 8.7 mg/dL Normal 8.5-10.1 [facility] Comment on above: Performed By: #### T SERGIO, LIPID, CMP #### [facility] [address] [place] [address] Dr. Deisi Bush Chloride [Moles/Vol] 105 mmol/L Normal 98-107 [facility] Comment on above: Performed By: #### T SERGIO, LIPID, CMP #### [facility] [address] [place], [place] [id number] Dr. Deisi Bush CO2 [Moles/Vol] 27.6 mmol/L Normal 21.0-32.0 [facility] Comment on above: Performed By: #### T SH, LIPID, CMP #### [facility] [address] [address] [address] Deisi Bush Creatinine [Mass/Vol] 0.90 mg/dL Normal 0.70-1.30 [facility] Comment on above: Performed By: #### T SH, LIPID, CMP #### [facility] [address] [address] [address] Deisi Bush EGFR-AF INDONESIAN >60 Normal >=60 [facility] Comment on above: Performed By: #### T SH, LIPID, CMP #### [facility] [address] [address] [address] Deisi Bush EGFR-NON AF INDONESIAN >60 Normal >=60 [facility] Comment on above: Performed By: #### T SERGIO, LIPID, CMP #### [facility] [address] [address] [address] Deisi Bush Globulin (S) [Mass/Vol] 3.6 g/dL Normal [facility] Comment on above: Performed By: #### T SERGIO, LIPID, CMP #### [facility] [address] [address] [address] Deisi Bush Glucose [Mass/Vol] 96 mg/dL Normal 74-106 [facility] Comment on above: Performed By: #### T SERGIO, LIPID, CMP #### [facility] [address] [address] [address] Deisi Bush Potassium [Moles/Vol] 4.2 mmol/L Normal 3.5-5.1 [facility] Comment on above: Performed By: #### T SH, LIPID, CMP #### [facility] [address] [address] [address] Deisi Bush Protein [Mass/Vol] 7.0 g/dL Normal 6.4-8.2 [facility] Comment on above: Performed By: #### T SH, LIPID, CMP #### [facility] [address] [address] [address] Deisi Bush Sodium [Moles/Vol] 140 mmol/L Normal 136-145 [facility] Comment on above: Performed By: #### T SH, LIPID, CMP #### [facility] [address] [address] [address] Deisi Bush Urea nitrogen [Mass/Vol] 16.0 mg/dL Normal 7.0-18.0 [facility] Comment on above: Performed By: #### T SH, LIPID, CMP #### [facility] [address] [address] [address] Deisi Bush Urea nitrogen/Creatini ne [Mass ratio] 17.8 mg/mg Normal [facility] Comment on above: Performed By: #### T SH, LIPID, CMP #### [facility] [address] [address] [address] Deisi Bush TSHon 03-04-2022 TSH 1.259 uIU/mL Normal 0.358-3.740 [facility] Comment on above: Performed By: #### T SH, LIPID, CMP #### [facility] [address] [address] [address] Deisi Bush TSH RANGE SEE BELOW Normal [facility] Comment on above: Result Comment: <0.3 4 UIU/ml HYPERTHYROID 0.34-5.60 UIU/ml EUTHYROID >5.60 UIU/ml HYPOTHYROID Performed By: #### T SH, LIPID, CMP #### [facility] [address] [address] [address] Deisi Bush Lipid Panelon 09-21-2021 Cholesterol [Mass/Vol] 181 mg/dL Normal 125-200 [facility] Comment on above: Result Comment: Low risk < 200mg/dL Borderline risk 201-239 mg/dl High risk > or equal to 240 Performed By: #### L IPD #### [facility] [address] [place] [id number] Cholesterol in HDL [Mass/Vol] 41 mg/dL Normal >40 [facility] Comment on above: Result Comment: High Cardiovascular Risk HDL <40 mg/dL Low Cardiovascular Risk HDL > or equal to 60 mg/dl Performed By: #### L IPD #### [facility] [address] [place], [place] [id number] Cholesterol in LDL [Mass/Vol] 126 mg/dL Normal [facility] Specialist Comment on above: Result Comment: LDL ATP III CLASSIFICATION LDL less than 100 mg/dl Optimal LDL 100-129 mg/dl Near or above optimal LDL 130-159 Borderline high LDL 160-189 High LDL greater than 189 mg/dl Very High Performed By: #### L IPD #### [facility] [address] [place], [place] [id number] Cholesterol in VLDL [Mass/Vol] 14 mg/dL Normal [facility] Specialist Comment on above: Performed By: #### L IPD #### [facility] [address] [place], [place] [id number] Cholesterol.total /Cholesterol in HDL [Mass ratio] 4 {ratio} Normal [facility] Specialist Comment on above: Performed By: #### L IPD #### [facility] [address] [place], [place] [id number] Triglyceride [Mass/Vol] 72 mg/dL Normal 30-[address] [facility] Specialist Comment on above: Result Comment: TRIG ATPIII CLASSIFICATIONS TRIG less than 150 mg/dl Normal TRIG 150-199 mg/dl Borderline High TRIG 200-500 mg/dl High TRIG greather than 500 mg/dl Very High Performed By: #### L IPD #### [facility] [address] [place], [place] [id number] PSA SCREEN (MEDICARE)on 08-25 TPSA 3.110 ng/mL Normal <4.[address] [facility] Special[facility] Comment on above: Result Comment: PSA Test Method: ECLIA/Saw e 601 Performed By: #### P SA #### [facility] [address] [place], [place] [id number] Vital Signs Date Time Vital Sign Value Performing Clinician Jose Enrique carpenter 05-29-2023 09:10-0400 Diastolic blood pressure 67 mm[Hg] II Martir Herbert Work Phone: [facility] 05-29-2023 09:10-0400 Heart rate 51 /min II Martir Herbert Work Phone: [facility] 05-29-2023 09:10-0400 Respiratory rate 16 /min II Martir Herbert Work Phone: [facility] 05-29-2023 09:10-0400 SaO2% (BldA) [Mass fraction] 96 % II Martir Herbert Work Phone: [facility] 05-29-2023 09:10-0400 Systolic blood pressure 131 mm[Hg] II Martir Herbert Work Phone: [facility] 05-29-2023 07:30-0400 Body height 175.26 cm II Martir Herbert Work Phone: [facility] 05-29-2023 07:30-0400 Body temperature 98 [degF] II Martir Herbert Work Phone: [facility] 05-29-2023 07:30-0400 Body weight 81.64 kg II Martir Herbert Work Phone: [facility] 02-05-2023 08:47-0400 Diastolic blood pressure 80 mm[Hg] Abran OCHOA [facility] 02-05-2023 08:47-0400 Mean blood pressure 103 mm[Hg] Abran OCHOA [facility] 02-05-2023 08:47-0400 Systolic blood pressure 150 mm[Hg] Abran OCHOA [facility] 02-05-2023 08:42-0400 Blood Pressure Location Abran OCHOA [facility] 02-05-2023 08:42-0400 Diastolic blood pressure 80 mm[Hg] Abran OCHOA [facility] 02-05-2023 08:42-0400 Heart rate 53 /min Abran OCHOA [facility] 02-05-2023 08:42-0400 Systolic blood pressure 154 mm[Hg] Abran OCHOA [facility] 12-19-2022 06:51-0400 Body height 177.8 cm II Martir Herbert Work Phone: [facility] 12-19-2022 06:51-0400 Body weight 81.64 kg II Martir Herbert Work Phone: [facility] 12-04-2022 12:26-0400 Blood Pressure Location Abran OCHOA [facility] 12-04-2022 12:26-0400 Diastolic blood pressure 70 mm[Hg] Abran OCHOA [facility] 12-04-2022 12:26-0400 Heart rate 64 /min Abran OCHOA [facility] 12-04-2022 12:26-0400 Systolic blood pressure 149 mm[Hg] Abran OCHOA [facility] Encounters Encounter Date Encounter Type Care Provider Facility Start: 12-07-2023 ambulatory Abranvalentin OCHOA Facili ty:[facility] Start: 10-08-2023 ambulatory Abranvalentin OCHOA Facili ty:[facility] Start: 09-12-2023 ambulatory Abran R OCHOA Facili ty:[facility] Start: 09-12-2023 End: 09-12-2023 Patient encounter procedure Abran OCHOA [facility] Start: 09-06-2023 End: 09-07-2023 ambulatory MARTIR HERBERT II Facility:[facility] Start: 09-06-2023 End: 09-06-2023 Patient encounter procedure Jc Mendiola MD Work Phone: Radiation Oncology Comment on above: Malignant neoplasm o f prostate (HCC) (Primary Dx) Start: 08-08-2023 ambulatory Abran OCHOA Facili ty:[facility] Start: 07-25-2023 Patient encounter procedure [facility] Provider [facility] Start: 07-24-2023 Telephone encounter Jc Mendiola MD Work Phone: Radiation Oncology Comment on above: Appointment Start: 07-11-2023 Patient encounter procedure Jc Mendiola MD Work Phone: [facility] Start: 07-11-2023 Radiation Oncology Note Jc Mendiola MD Work Phone: Radiation Oncology Comment on above: Simulation Note Start: 07-11-2023 End: 07-11-2023 ambulatory Jc MENDIOLA Facility:[facility] Start: 05-29-2023 End: 05-29-2023 ambulatory Imad Asaad Facility:[facility] Start: 05-29-2023 End: 05-29-2023 Admission to same day surgery center II Martir Herbert Work Phone: [facility] Work Phone: Start: 05-29-2023 End: 05-29-2023 ambulatory II Martir Herbert Work Phone: [facility] Work Phone: Start: 05-23-2023 Patient encounter procedure [facility] Provider [facility] Start: 05-02-2023 Telephone encounter Jc Mendiola MD Work Phone: Radiation Oncology Comment on above: Constipation; Rectal Bleeding; Future Appointment Start: 02-21-2023 Patient encounter procedure [facility] Provider [facility] Start: 02-16-2023 End: 02-16-2023 ambulatory ABRAN OCHOA Facility:[facility] Start: 02-05-2023 End: 02-06-2023 ambulatory Abran OCHOA Facility:[facility] Start: 02-05-2023 End: 02-05-2023 Patient encounter procedure Abran OCHOA [facility] Start: 01-16-2023 End: 01-17-2023 ambulatory Abran OCHOA Facility:[facility] Start: 01-16-2023 End: 01-16-2023 Patient encounter procedure Abran OCHOA [facility] Start: 12-19-2022 End: 12-19-2022 ambulatory Abran Ochoa Facility:[facility] Start: 12-19-2022 End: 12-19-2022 ambulatory II Martir Herbert Work Phone: [facility] Work Phone: Start: 12-19-2022 End: 12-19-2022 Patient encounter procedure II Martir Herbert Work Phone: [facility] [place] Work Phone: Start: 12-04-2022 End: 12-05-2022 ambulatory Abran OCHOA Facility:[facility] Start: 12-04-2022 End: 12-04-2022 Patient encounter procedure Abran OCHOA [facility] Start: 10-17-2022 End: 10-18-[address] ABRAN OCHOA Facility:[facility] Start: 09-22-2022 End: 09-23-2022 ambulatory Abran OCHOA Facility:[facility] Start: 09-22-2022 End: 09-22-2022 Patient encounter procedure [facility] OCHO[facility] Start: 03-04-2022 End: 03-05-[address] MARTIR HERBERT Facility:[facility] Procedures Date Procedure Procedure Detail Performing Clinician Start: 05-29-2023 Screening colonoscopy I I Martir Herbert Work Phone: Start: 12-27-2022 Transrectal biopsy o f prostate using ultrasound guidance Abranvalentin OCHOA Start: 12-19-2022 MR prostate wo/w con II Martir Herbert Work Phone: Start: 05-12-2015 Transrectal biopsy o f prostate using ultrasound guidance Abranvalentin OCHOA Start: 12-29-2014 Transrectal biopsy o f prostate using ultrasound guidance Abran OCHOA Start: 10-03-2013 Cystoscopy Abran DOMINGUEZ Comment on above: Lt stent removal Start: 09-23-2013 Cystoscopy Abran DOMINGUEZ Comment on above: Lt RG, Lt ureterosco py w/holmium laser, Lt ureteroscopic stone basket. Lt double J stent Start: 10-22-2012 Transrectal biopsy o f prostate using ultrasound guidance Abran OCHOA Comment on above: w/cysto Start: 09-12-2006 Transrectal biopsy o f prostate using ultrasound guidance Abranvalentin OCHOA Start: 07-25-2005 Transrectal biopsy o f prostate using ultrasound guidance Abran OCHOA Esophageal hiatus he rnia repair Abranvalentin OCHOA Hemorrhoidectomy Abran BRUSH Plan of Treatment Date Care Activity Detail Author Start: 09-19-2031 Urine microalbumin profile DTaP,Tdap,Td Vaccine (2 - Td or Tdap) [facility] Start: 05-29-[address] [facility] Start: 05-25-2023 Covid-19 Vaccine ( season) Covid-19 Vaccine () [facility] Start: 05-25-2023 Influenza vaccination C [facility] Start: 12-11-2022 COVID-19 VACCINE (5 - Pfizer series) COVID-19 VACCINE (5 - Pfizer series) [facility] Start: 09-24-2022 ADVANCE DIRECTIVE DISCUSSION ADVANCE DIRECTIVE DISCUSSION [facility] Start: 09-24-2022 DEPRESSION ASSESSMENT DEPRESSION ASS ESSMENT [facility] Start: 2006 PNEUMOCOCCAL: 65+ (1 - PCV) PNEUMOCOCCAL: 65+ (1 - PCV) [facility] Start: 2001 RSV Vaccine (1 - 1-d ose 60+ series) RSV Vaccine (1 - 1-dose 60+ series) [facility] Start: 11-24-1991 SHINGRIX VACCINE (1 of 2) LOPEZ GRIX VACCINE (1 of 2) [facility] Start: 1986 DIABETES SCREEN [facility] Start: 1986 Diabetes Screening Diabetes Screenin g [facility] Start: 1960 Urine microalbumin profile DTAP,TDAP,TD (1 - Tdap) [facility] [place] Immunizations Immunization Date Immunization Notes Care Provider Alvin barker 08-13-2022 influenza virus vaccine, unspecified formulation Abran OCHOA [facility] 08-13-2022 SARS-CoV-2 (COVID-19 ) [id number] Abran OCHOA [facility] 12-18-2021 zoster vaccine recombinant Abran OCHOA [facility] 09-21-2021 zoster vaccine recombinant Abran OCHOA [facility] 09-19-2021 tetanus toxoid, redu lester diphtheria toxoid, and acellular pertussis vaccine, adsorbed Abran OCHOA [facility] 08-25-2021 influenza virus vaccine, unspecified formulation Abran OCHOA [facility] 06-25-2021 influenza virus vaccine, unspecified formulation Abran OCHOA [facility] 06-25-2021 SARS-CoV-2 (COVID-19 ) mRNA BNT-162b2 vax Abran OCHOA [facility] Comment on above: Result Comment: 2022: [id number] 11-14-2020 SARS-CoV-2 (COVID-19 ) mRNA BNT-162b2 vax Abran OCHOA [facility] Comment on above: Result Comment: 2022: [id number] 10-24-2020 SARS-CoV-2 (COVID-19 ) mRNA BNT-162b2 vax Abran OCHOA [facility] Comment on above: Result Comment: 2022: [id number] 06-28-2020 influenza virus vaccine, unspecified formulation [place] [facility] 07-02-2019 influenza virus vaccine, unspecified formulation [place] [facility] 07-02-2019 pneumococcal conjuga te vaccine, 13 valent [place] [facility] 06-29-2018 influenza virus vaccine, unspecified formulation Abran OCHOA [facility] 06-21-2017 influenza virus vaccine, unspecified formulation Abran OCHOA [facility] 08-18-2015 influenza virus vaccine, unspecified formulation Abran OCHOA [facility] 06-23-2014 influenza virus vaccine, unspecified formulation Abran OCHOA [facility] 07-01-2013 influenza virus vaccine, unspecified formulation Abran OCHOA [facility] 07-01-2013 zoster vaccine, live Abran OCHOA [facility] Payers Date Payer Category Payer Self-pay 2022 Private Health Insurance [facility] INDEMNITY [id number] 2022-Present [phone] [address] [place] [address] Indemnity [id number] 2006 Medicare [id number] 1959 Medicare [id number] 1959 Private Health Insurance [id number] 1941 Unknown [id number]. 2.593 1941 Unknown [id number] 2.16.840.1.507502.3.579. 2.593 1941 Unknown [id number] 2.16.840.1.219814.3.579. 2.727 1941 Unknown [id number] 2.16.840.1.150701.3.579. 2.727 1941 Unknown [id number] 2.16.840.1.321545.3.579. 2.727 1941 Unknown [id number] 2.16.840.1.442031.3.579. 2.727 1941 Unknown [id number] 2.16.840.1.645502.3.579. 2.727 1941 Unknown [id number] 2.16.840.1.573919.3.579. 2.727 1941 Unknown [id number] 2.16.840.1.579159.3.579. 2.727 1941 Unknown [id number] 2.16.840.1.860802.3.579. 2.727 1941 Unknown [id number] 2.16.840.1.085810.3.579. 2.727 Unknown Insurance No Card [id number] Unknown [id number]. 2.531 Unknown [id number]. 2.531 Social History Date Type Detail Facility Start: 09-01-2020 End: 02-05-2023 Tobacco smoking status Never smoked tobacco (finding) [facility] Tobacco smoking status Never [facility] Start: 02-16-2023 End: 09-06-2023 Sex Assigned At Male [facility] Start: 1940 Sex Assigned At Male [facility] Start: 02-16-2023 Tobacco use and exposure Smokeless tobacco non-user [facility] Start: 02-16-2023 Alcohol intake Ex-drinker (finding) [facility] Start: 1940 Sex Assigned At Not on file [facility] Start: 02-16-2023 End: 09-06-2023 History of Social function [facility] Goals Date Patient Goal Desired Activity /State Functional Status Date Assessment Result Facility 02-05-2023 Functional Status N/A [facility] 12-04-2022 Functional Status N/A [facility] Clinical Notes 02-23-2022 to 09-06-2023 Jc Mendiola MD - 09/06/2023 3:06 PM ESTTelephone Encounter - Debra Kelly LPN - 07/25/2023 11:26 AM EDTTelephone Encounter - Debra Kelly LPN - 07/24/2023 9:54 AM EDT Note Date & Type Note Facility 09-06-2023 Note HNO ID: [id number] Author: Jc Mendiola MD Service: ? Author Type: Physician Type: Progress Notes Filed: 09/06/2023 3:18 PM Note Text: Date: 09/06/23 Facility: [facility] Procedure: prostate transperineal brachytherapy implant Diagnosis: Prostate cancer. Sources: I-125 Anesthesia:general Urologist: Dr. Ochoa This is an operative report supplement to Dr. Ochoa note. Prior the the implant patient underwent planning using transrectal ultrasound based. The planning including outline of prostate and planning margin around prostate to deliver 145 Gy using I-125 sources. It was determined 61 sources, was necessary using 15 needles. Prior to the procedure on the morning of the implant, patient identified by name and hospital ID bracelet. After anesthesia administered patient placed in dorsal-lithotomy position and ultrasound study done showing good correlation with planning images and excellent visualization of the gland. Implant was then carried out using transperineal technique with active ultrasound and fluoroscopic guidance. At the end of the case the treatment planning ultrasound computer showed captured seed located in expected position with appropriate target coverage, no extra seeds implanted. X-ray image showed good seed distribution and all 61 sources. Intraoperative dosimetry reviewed showing approptiate D90 and excellent coverage of gland by the 100% IDL. After the cystoscopy physics performed survey with meter of patient, cystoscopy fluid, floor, trash, work table and general area. No excess activity seen, results documented. Edilma Mendiola MD [facility] 09-06-2023 History of Present illness Narrative Date: 09/06/23 Facility: [facility] Procedure: prostate transperineal brachytherapy implant Diagnosis: Prostate cancer. Sources: I-125 Anesthesia:general Urologist: Dr. Ochoa This is an operative report supplement to Dr. Ochoa note. Prior the the implant patient underwent planning using transrectal ultrasound based. The planning including outline of prostate and planning margin around prostate to deliver 145 Gy using I-125 sources. It was determined 61 sources, was necessary using 15 needles. Prior to the procedure on the morning of the implant, patient identified by name and hospital ID bracelet. After anesthesia administered patient placed in dorsal-lithotomy position and ultrasound study done showing good correlation with planning images and excellent visualization of the gland. Implant was then carried out using transperineal technique with active ultrasound and fluoroscopic guidance. At the end of the case the treatment planning ultrasound computer showed captured seed located in expected position with appropriate target coverage, no extra seeds implanted. X-ray image showed good seed distribution and all 61 sources. Intraoperative dosimetry reviewed showing approptiate D90 and excellent coverage of gland by the 100% IDL. After the cystoscopy physics performed survey with meter of patient, cystoscopy fluid, floor, trash, work table and general area. No excess activity seen, results documented. Edilma Mendiola MD [facility] documented in this encounter [facility] 08-25-2023 Note HNO ID: [id number] Author: Jc Mendiola MD Service: ? Author Type: Physician Type: Progress Notes Filed: 09/06/2023 12:36 AM Note Text: JOSE CAN [id number] 08/25/2023 [facility] Department of Radiation Oncology [facility] RADIATION ONCOLOGY BRACHYTHERAPY TREATMENT PLANNING NOTE For reasons stated in the consult note, JOSE CAN is a candidate for definitive radiation. Based on review and interpretation of the relevant diagnostic studies together with the exam findings, JOSE CAN was simulated on 07/11/2023 and the target volume to be treated as well as the critical normal structure(s) were delineated as indicated in the simulation note. I personally reviewed the TRUS and was able to create contours of the volume to be treated and the normal critical structures to be spared. In this particular case, the rectum was deemed to be a critical structure. Special consideration of this was given in light of the potential for increased toxicity if the rectum receives too much radiation dose. After participating in the treatment planning process with medical physics, I approved the best plan to deliver my prescribed course of radiation. The target tissue was planned using pre-planning to allow for the best isodose distribution to deliver a minimum dose of 145 Gy to the prostate. The dose to normal tissue (rectum) and target tissue was confirmed upon review of the calculated dose superimposed on the TRUS images containing the target tissue and the rectum. A completed summary of this plan dated 08/25/2023 incorporated herein by reference includes dose, energy, isodose distribution and DVH. Electronically Signed Chirag Mendiola M.D. / NATY 33:42 PM [facility] 07-25-2023 Miscellaneous Notes Enriqueta, pt's dtr, returned my call and I notified her that a new schedule has been mailed to [place] for his upcoming prostate seed implant and follow ups. Debra Kelly RN Christina with Dr. 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 [place] now needs to cardiac clearance and the first available appointment with Dr. Payne isn't until 08/06/23. Brachytherapy appointment rescheduled from 08/02/23 to 09/06/23. I left a message for [place] to call me back to notify him that we will him an updated schedule. Debra Kelly RN documented in this encounter [facility] 07-12-2023 Note HNO ID: [id number] Author: Jc Mendiola MD Service: ? Author Type: Physician Type: Progress Notes Filed: 07/12/2023 3:19 PM Note Text: UNIVERSAL PROTOCOL / SAFETY CHECKLIST Procedure to be Performed: Prostate volume study Sign In: A Moment of CARE was completed. Personnel directly involved with the procedure wore the appropriate PPE (Personal Protective Equipment). Patient/Surrogate Stated/Verified: PATIENT VERIFIED(optional for EMERGENT procedures): Patient name, Date of , Relevant allergies, and The intended procedure Time Out Communication: Intended patient and procedure match the source documents. Consent documented and matches the intended procedure. Sign Out: SIGN OUT (optional for EMERGENT procedures): No specimen collected. All instruments, equipment, possible retained foreign bodies accounted for. Post-procedure follow-up management communicated and Plan of Care Visit completed when applicable. Jc Mendiola MD [facility] 07-11-2023 Note HNO ID: [id number] Author: Jc Mendiola MD Service: ? Author Type: Physician Type: Progress Notes Filed: 07/12/2023 12:35 AM Note Text: PAMELLA JOSE [id number] 07/11/2023 [facility] Radiation Oncology [facility] RADIATION ONCOLOGY SIMULATION NOTE DATE OF SIMULATION: 07/11/2023 MACHINE: [employer] Focus 500 Diagnosis: 185 (Prostate Gland) AREA:Prostate PATIENT POSITION: Supine CONTRAST: None PROTOCOL: None CONCURRENT THERAPY: None FIXATION DEVICE: UTS Stabilization device by Nucletron. PROCEDURE: Patient was simulated in exaggerated dorsal lithotomy position. Serial images of the prostate were acquired using TRUS and reconstructed in 3D space. These images were imported into [employer] Prostate planning system where a plan was generated. ASSESSMENT/PLAN: Patient tolerated simulation procedure well. Electronically Signed Chirag Mendiola M.D. / NATY :19 PM [facility] 07-11-2023 History of Present illness Narrative PAMELLA JOSE [id number] 07/11/2023 [facility] Radiation Oncology [facility] RADIATION ONCOLOGY SIMULATION NOTE DATE OF SIMULATION: 07/11/2023 MACHINE: [employer] Focus 500 Diagnosis: 185 (Prostate Gland) AREA:Prostate PATIENT POSITION: Supine CONTRAST: None PROTOCOL: None CONCURRENT THERAPY: None FIXATION DEVICE: UTS Stabilization device by Nucletron. PROCEDURE: Patient was simulated in exaggerated dorsal lithotomy position. Serial images of the prostate were acquired using TRUS and reconstructed in 3D space. These images were imported into [employer] Prostate planning system where a plan was generated. ASSESSMENT/PLAN: Patient tolerated simulation procedure well. Electronically Signed Chirag Mendiola M.D. / NATY :19 PM documented in this encounter [facility] 05-29-2023 Procedure note [facility] 05-03-2023 Miscellaneous Notes Patients daughter called back she scheduled it for 05/29 in the morning she said. Called and got patient scheduled for Sunday for colonscopy called the daughter stated he could not do that he will be out of town, I told her there office will be calling him to r/s and figure out a good date she will be calling me back to tell me when they scheduled it for. Faxed ref and notes over as urgent will check on later MARY- please sign GI referral PSS- please coordinate colonoscopy referral locally. Prior patient of Dr Franco. They would like local referral ([facility]). This needs done prior to us being able to schedule his prostate seed implant surgery. Thank you Nichelle Elkins RN Call placed to let Enriqueta know that Dr Mendiola would like patient to have a colonoscopy prior to scheduling seed implant. LM requesting cb. Nichelle Elkins RN Pts dtr called in asking if implant could be moved up instead of waiting until the fall. She said her Dad has been worrying that his cancer has now spread. He has developed some new constipation and had some blood in his stool a couple of times. The constipation is unusual for him. He is using Miralax and another oral over the counter laxative and still having difficulty going. I did explain that it would not be likely that this would be related to the prostate cancer. They have not yet contacted his PCP because they thought they'd start with seeing if we could move up the implant first. Last colonoscopy was done per Dr Franco at [facility] in 2016. It was normal. Dr Mendiola-- please advise. Nichelle Elkins RN documented in this encounter [facility] 02-16-2023 Note HNO ID: [id number] Author: Jc Mendiola MD Service: ? Author Type: Physician Type: Progress Notes Filed: 02/16/2023 10:23 AM Note Text: Radiation Oncology - Prostate Cancer New Patient/Consult Note PATIENT NAME: Jose Can PATIENT REQUESTING PROVIDER: Dr. Ochoa DIAGNOSIS: 82 year old male with prostate adenocarcinoma, initial PSA 3.1, biopsy Kearny score 3 + 4 = 7 (grade group 2), clinical stage T2a, N0, M0, stage IIB [T1-T2, N0, M0, PSA <20, GG 2] (AJCC 8th ed.), s/p TRUS Random and MR Targeted biopsy. HPI: 82 year old male with prostate adenocarcinoma who presents for an opinion regarding the role of radiation therapy in the management of the patient's disease. Final recommendations will be communicated back to the requesting physician by way of the shared medical record, or letter to requesting physician via US mail. The patient was diagnosed with prostate cancer and comes in today to discuss treatment options. Clinical exam revealed nodule. PSA, 3.1 (21.9 % free), on 10/17/22. MRI prostate 12/19/2022 demonstrating 34 cc gland, focal T2 7 x 4 mm lesion left peripheral zone PI-RADS 4. No suspicious findings within the seminal vesicles, neurovascular bundles, pelvic lymph nodes, skeletal area. Prostate biopsy on January 17, 2023 revealed: 35 cc gland Adenocarcinoma Kearny 7 (3+4) from right apical and 4 areas of Kearny 6 (3+3) including left base right base right lateral base right lateral apical cores Total # of positive biopsy cores: 5 Total # of biopsy cores sampled: 13 Greatest % cancer in any single core: 25-50% Staging Studies: MR Results: See HPI Previous Treatment for Prostate Cancer: None Genomic Testing: None The patient reports the following pertinent history: Urinary frequency (D/N): 4-6/1 Dysuria: No Incontinence: 1- No pads Hematuria: No - Total AUA Score: 1 Bowel Movement Frequency: 1/day Bowel Movement Quality: Normal Blood per Rectum: No Last Colonoscopy: na Prior Radiation Therapy, Collagen Vascular Disease, or Inflammatory Bowel Disease: No Currently on Anticoagulation: No History of Hip Replacement: No History of Prior TURP: No ALLERGIES Allergen Reactions Penicillins Rash Sulfa (Sulfonamide * Rash simvastatin (ZOCOR) 20 mg tablet lisinopril (ZESTRIL) 10 mg tablet omega-3 acid ethyl esters (LOVAZA) 1 gram capsule calcium citrate (CITRACAL ORAL) Take by mouth. Lactobacillus acidophilus (PROBIOTIC ORAL) Take by mouth. cholecalciferol, vitamin D3, (VITAMIN D3 ORAL) Take by mouth. polyethylene glycol 3350 (CLEARLAX ORAL) Take by mouth. aspirin, enteric coated (ASPIRIN, ENTERIC COATED) 81 mg EC tablet Take 81 mg by mouth once daily. 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 KARNOFSKY PERFORMANCE STATUS: 100 General Appearance: Alert and oriented. No acute distress. HEENT: NCAT. Sclera anicteric. PERRL. EOMI. Neck: Normal ROM. No palpable cervical or supraclavicular adenopathy. Chest: No respiratory distress. Lungs clear to auscultation bilaterally. Heart: Regular rate and rhythm. Abdomen: Soft. Nontender. Nondistended. Musculoskeletal: No edema. Normal ROM in extremities. No bone or spine tenderness. Neuro: Speech fluent. Gait normal. No focal deficits. Skin: No rashes noted Lymphatics: No palpable lymphadenopathy. GENITOURINARY: Deferred exam RECTAL: Deferred exam RADIOLOGY/LABORATORY DATA: see HPI ASSESSMENT/PLAN: Prostate adenocarcinoma, 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 Prostate cancer (C61), 2019 NCCN Risk Group: Favorable Intermediate Risk Group Clinical State: Localized Cancer - New Diagnosis Patient has localized favorable intermediate risk prostate cancer. Potential options of managemen (more content not included)... [facility] 02-05-2023 Hospital Discharge instructions Patient Education 02/05/2023 09:18:16 Prostate Cancer Prostate Cancer The prostate is a small gland that produces fluid that makes up semen (seminal fluid). It is located below the bladder in men, in front of the rectum. Prostate cancer is the abnormal growth of cells in the prostate gland. What are the causes? The exact cause of this condition is not known. What increases the risk? You are more likely to develop this condition if: You are 65 years of age or older. You have a family history of prostate cancer. You have a family history of breast and ovarian cancer. You have genes that are passed from parent to child (inherited), such as BRCA1 and BRCA2. You have Beckman syndrome. men and men of descent are diagnosed with prostate cancer at higher rates than other men. The reasons for this are not well understood and are likely due to a combination of genetic and environmental factors. What are the signs or symptoms? Symptoms of this condition include: Problems with urination. This may include: ?A weak or interrupted flow of urine. ?Trouble starting or stopping urination. ?Trouble emptying the bladder all the way. ?The need to urinate more often, especially at night. Blood in urine or semen. Persistent pain or discomfort in the lower back, lower abdomen, or hips. Trouble getting an erection. Weakness or numbness in the legs or feet. How is this diagnosed? This condition can be diagnosed with: A digital rectal exam. For this exam, a health care provider inserts a gloved finger into the rectum to feel the prostate gland. A blood test called a prostate-specific antigen (PSA) test. A procedure in which a sample of tissue is taken from the prostate and checked under a microscope (prostate biopsy). An imaging test called transrectal ultrasonography. Once the condition is diagnosed, tests will be done to determine how far the cancer has spread. This is called staging the cancer. Staging may involve imaging tests, such as a bone scan, CT scan, PET scan, or MRI. Stages of prostate cancer The stages of prostate cancer are as follows: Stage 1 (I). At this stage, the cancer is found in the prostate only. The cancer is not visible on imaging tests, and it is usually found by accident, such as during prostate surgery. Stage 2 (II). At this stage, the cancer is more advanced than it is in stage 1, but the cancer has not spread outside the prostate. Stage 3 (III). At this stage, the cancer has spread beyond the outer layer of the prostate to nearby tissues. The cancer may be found in the seminal vesicles, which are near the bladder and the prostate. Stage 4 (IV). At this stage, the cancer has spread to other parts of the body, such as the lymph nodes, bones, bladder, rectum, liver, or lungs. Prostate cancer grading Prostate cancer is also graded according to how the cancer cells look under a microscope. This is called the Alpa score and the total score can range from 6 10, indicating how likely it is that the cancer will spread (metastasize) to other parts of the body. The higher the score, the greater the likelihood that the cancer will spread. Alpa 6 or lower: This indicates that the cancer cells look similar to normal prostate cells (well differentiated). Alpa 7: This indicates that the cancer cells look somewhat similar to normal prostate cells (moderately differentiated). Kearny 8, 9, or 10: This indicates that the cancer cells look very different than normal prostate cells (poorly differentiated). How is this treated? Treatment for this condition depends on several factors, including the stage of the cancer, your age, personal preferences, and your overall health. Talk with your health care provider about treatment options that are recommended for you. Common treatments include: Observation for early stage prostate cancer (active surveillance). This involves having exams, blood tests, and in some cases, more biopsies. For some men, this is the only treatment needed. Surgery. Types of surgeries include: ?Open surgery (radical prostatectomy). In this surgery, a larger incision is made to remove the prostate. ?A laparoscopic radical prostatectomy. This is a surgery to remove the prostate and lymph nodes through several small incisions. It is often referred to as a minimally invasive surgery. ?A robotic radical prostatectomy. This is laparoscopic surgery to remove the prostate and lymph nodes with the help of robotic arms that are controlled by the surgeon. ?Cryoablation. This is surgery to freeze and destroy cancer cells. Radiation treatment. Types of radiation treatment include: ?External beam radiation. This type aims beams of radiation from outside the body at the prostate to destroy cancerous cells. ?Brachytherapy. This type uses radioactive needles, seeds, wires, or tubes that are implanted into the prostate gland. Like external beam radiation, brachytherapy destroys cancerous cells. An advantage is that this type of radiation limits the damage to surrounding tissue and has fewer side effects. Chemotherapy. This treatment kills cancer cells or stops them from multiplying. It kills both cancer cells and normal cells. Targeted therapy. This treatment uses medicines to kill cancer cells without damaging normal cells. Hormone treatment. This treatment involves taking medicines that act on testosterone, one of the male hormones, by: ?Stopping your body from producing testosterone. ?Blocking testosterone from reaching cancer cells. Follow these instructions at home: Lifestyle Do not use any products that contain nicotine or tobacco. These products include cigarettes, chewing tobacco, and vaping devices, such as e-cigarettes. If you need help quitting, ask your health care provider. Eat a healthy diet. To do this: ?Eat foods that are high in fiber. These include beans, whole grains, and fresh fruits and vegetables. ?Limit foods that are high in fat and sugar. These include fried or sweet foods. Treatment for prostate cancer may affect sexual function. If you have a partner, continue to have intimate moments. This may include touching, holding, hugging, and caressing your partner. Get plenty of sleep. Consider joining a support group for men who have prostate cancer. Meeting with a support group may help you learn to manage the stress of having cancer. General instructions Take fvaq-omf-glmsacg and prescription medicines only as told by your health care provider. If you have to go to the hospital, notify your cancer specialist (oncologist). Keep all follow-up visits. This is important. Where to find more information [place] [employer]: www.cancer.org [place] [employer] of Clinical Oncology: www.cancer.net National Cancer [place]: www.cancer.gov Contact a health care provider if: You have new or increasing trouble urinating. You have new or increasing blood in your urine. You have new or increasing pain in your hips, back, or chest. Get help right away if: You have weakness or numbness in your legs. You cannot control urination or your bowel movements (incontinence). You have chills or a fever. Summary The prostate is a small gland that is involved in the production of semen. It is located below a man's bladder, in front of the rectum. Prostate cancer is the abnormal growth of cells in the prostate gland. Treatment for this condition depends on the stage of the cancer, your age, personal preferences, and your overall health. Talk with your health care provider about treatment options that are recommended for you. Consider joining a support group for men who have prostate cancer. Meeting with a support group may help you learn to manage the stress of having cancer. This information is not intended to replace advice given to you by your health care provider. Make sure you discuss any questions you have with your health care provider. Document Revised: 12/07/2021 Document Reviewed: 12/07/2021 [employer] Patient Education 2022 [employer]. Follow Up Care 01/04/2023 12:26:51 With:LADAN EDWARDS, Abran Darling, URL Address: [facility] [address] [place] [address] [phone] When:Within 6 Month(s) Comments:Will refer to Dr. Mendiola [facility] 01-16-2023 Note [id number] [facility] 01-16-2023 Hospital Discharge instructions Patient Education 01/16/2023 09:25:30 EU - Transrectal Ultrasound of the Prostate with US guided biopsy Discharge Instructions (CUSTOM) Transrectal Ultrasound of the Prostate with US guided biopsy Even though there are no visible incisions, multiple prostate biopsies have been taken through the rectum and you need to follow some instructions to minimize the risks of bleeding. You may see some blood in your urine and stool for up to 1 week (and blood in the semen for several months) Diet -You may resume your normal diet, but you may want to avoid alcohol, carbonated drinks, caffeine, and spicy foods, which may increase the irritation from the surgery. -Drink plenty of water to keep the urine clear. Activity -You should limit any physical activity for about 48 hours -No heavy lifting or straining (10 pound limit) -No driving a car and limit long car rides for 2 days -No strenuous exercise -No sexual intercourse until this is discussed with your doctor Bowels -Try to keep your bowel movements soft to minimize straining to have a bowel movement. -You may use a stool softener or over the counter laxative if needed -Difficult bowel movement may lead to straining and bleeding from the prostate Medications -You may resume your home medications unless instructed otherwise -Hold aspirin, ibuprofen, Coumadin (warfarin) and other blood thinners for about two days or until there is no active bleeding unless otherwise instructed -Finish the antibiotic which you have already started Things to watch for which would require an Emergency Room visit or call 911: (this is not a complete list) -Persistent or heavy bleeding or blood clots from the rectum or in the urine -Inability to urinate -Fever over 101.5 degrees Fahrenheit, with or without chills -Severe drug reactions with itching, hives or rash -Tenderness or swelling of the calves, chest pain, or shortness of breath Please call the office to arrange for your post-operative appointment in 1-2 weeks [phone] or [phone] Follow Up Care 01/04/2023 11:45:40 With:Abran OCHOA Address: [facility] [address] [place] [address]- [facility] (1) When: Unknown Comments:Keep scheduled appointment [facility] 12-04-2022 Hospital Discharge instructions Patient Education 12/04/2022 08:25:20 Benign Prostatic Hyperplasia Benign Prostatic Hyperplasia Benign prostatic hyperplasia (BPH) is an enlarged prostate gland that is caused by the normal aging process and not by cancer. The prostate is a walnut-sized gland that is involved in the production of semen. It is located in front of the rectum and below the bladder. The bladder stores urine and the urethra is the tube that carries the urine out of the body. The prostate may get bigger as a man gets older. An enlarged prostate can press on the urethra. This can make it harder to pass urine. The build-up of urine in the bladder can cause infection. Back pressure and infection may progress to bladder damage and kidney (renal) failure. What are the causes? This condition is part of a normal aging process. However, not all men develop problems from this condition. If the prostate enlarges away from the urethra, urine flow will not be blocked. If it enlarges toward the urethra and compresses it, there will be problems passing urine. What increases the risk? This condition is more likely to develop in men over the age of 50 years. What are the signs or symptoms? Symptoms of this condition include: Getting up often during the night to urinate. Needing to urinate frequently during the day. Difficulty starting urine flow. Decrease in size and strength of your urine stream. Leaking (dribbling) after urinating. Inability to pass urine. This needs immediate treatment. Inability to completely empty your bladder. Pain when you pass urine. This is more common if there is also an infection. Urinary tract infection (UTI). How is this diagnosed? This condition is diagnosed based on your medical history, a physical exam, and your symptoms. Tests will also be done, such as: A post-void bladder scan. This measures any amount of urine that may remain in your bladder after you finish urinating. A digital rectal exam. In a rectal exam, your health care provider checks your prostate by putting a lubricated, gloved finger into your rectum to feel the back of your prostate gland. This exam detects the size of your gland and any abnormal lumps or growths. An exam of your urine (urinalysis). A prostate specific antigen (PSA) screening. This is a blood test used to screen for prostate cancer. An ultrasound. This test uses sound waves to electronically produce a picture of your prostate gland. Your health care provider may refer you to a specialist in kidney and prostate diseases (urologist). How is this treated? Once symptoms begin, your health care provider will monitor your condition (active surveillance or watchful waiting). Treatment for this condition will depend on the severity of your condition. Treatment may include: Observation and yearly exams. This may be the only treatment needed if your condition and symptoms are mild. Medicines to relieve your symptoms, including: ?Medicines to shrink the prostate. ?Medicines to relax the muscle of the prostate. Surgery in severe cases. Surgery may include: ?Prostatectomy. In this procedure, the prostate tissue is removed completely through an open incision or with a laparoscope or robotics. ?Transurethral resection of the prostate (TURP). In this procedure, a tool is inserted through the opening at the tip of the penis (urethra). It is used to cut away tissue of the inner core of the prostate. The pieces are removed through the same opening of the penis. This removes the blockage. ?Transurethral incision (TUIP). In this procedure, small cuts are made in the prostate. This lessens the prostate's pressure on the urethra. ?Transurethral microwave thermotherapy (TUMT). This procedure uses microwaves to create heat. The heat destroys and removes a small amount of prostate tissue. ?Transurethral needle ablation (TUNA). This procedure uses radio frequencies to destroy and remove a small amount of prostate tissue. ?Interstitial laser coagulation (ILC). This procedure uses a laser to destroy and remove a small amount of prostate tissue. ?Transurethral electrovaporization (TUVP). This procedure uses electrodes to destroy and remove a small amount of prostate tissue. ?Prostatic urethral lift. This procedure inserts an implant to push the lobes of the prostate away from the urethra. Follow these instructions at home: Take lcgs-hgb-dmtddcg and prescription medicines only as told by your health care provider. Monitor your symptoms for any changes. Contact your health care provider with any changes. Avoid drinking large amounts of liquid before going to bed or out in public. Avoid or reduce how much caffeine or alcohol you drink. Give yourself time when you urinate. Keep all follow-up visits as told by your health care provider. This is important. Contact a health care provider if: You have unexplained back pain. Your symptoms do not get better with treatment. You develop side effects from the medicine you are taking. Your urine becomes very dark or has a bad smell. Your lower abdomen becomes distended and you have trouble passing your urine. Get help right away if: You have a fever or chills. You suddenly cannot urinate. You feel lightheaded, or very dizzy, or you faint. There are large amounts of blood or clots in the urine. Your urinary problems become hard to manage. You develop moderate to severe low back or flank pain. The flank is the side of your body between the ribs and the hip. These symptoms may represent a serious problem that is an emergency. Do not wait to see if the symptoms will go away. Get medical help right away. Call your local emergency services (911 in the [place] Do not drive yourself to the hospital. Summary Benign prostatic hyperplasia (BPH) is an enlarged prostate that is caused by the normal aging process and not by cancer. An enlarged prostate can press on the urethra. This can make it hard to pass urine. This condition is part of a normal aging process and is more likely to develop in men over the age of 50 years. Get help right away if you suddenly cannot urinate. This information is not intended to replace advice given to you by your health care provider. Make sure you discuss any questions you have with your health care provider. Document Released: 09/10/2006 Document Revised: 08/05/2019 Document Reviewed: 10/15/2017 [employer] Patient Education [employer]. Follow Up Care 09/22/2022 08:10:59 With:Abran OCHOA MD, URL Address: [facility] [address] [place] [address] Dr, [place] [address]- When: Unknown [facility] 02-23-2022 Hospital Discharge instructions Follow Up Care 02/23/2022 13:31:33 With:Abran OCHOA MD, URL Address: [address] [place] [id number]- When: Unknown [facility] Evaluation + Plan note Future Appointments Appointment Date:12/04/2022 12:15:00 PM Scheduled Provider:Abran OCHOA MD Location:[facility] Appointment Type:URO Office Visit [facility] Evaluation + Plan note Future Appointments Appointment Date:12/07/2023 08:00:00 AM Scheduled Provider:Abran OCHOA MD Location:[facility] Appointment Type:URO Office Visit [facility] Evaluation + Plan note Future Appointments Appointment Date:02/05/2023 08:30:00 AM Scheduled Provider:Abran OCHOA MD [facility] Appointment Type:URO Office Visit Appointment Date:12/07/2023 08:00:00 AM Scheduled Provider:Abran OCHOA MD [facility] Appointment Type:URO Office Visit Diagnostic Tests PendingProstate Histology ([facility]) 01/16/23 [facility] Evaluation + Plan note Future Appointments Appointment Date:12/07/2023 08:00:00 AM Scheduled Provider:Abran OCHOA MD [facility] Appointment Type:URO Office Visit Diagnostic Tests PendingPSA Total 02/05/23 [facility] Evaluation + Plan note Future Appointments Appointment Date:10/08/2023 09:30:00 AM Scheduled Provider:Abran OCHOA MD Location:[facility] Appointment Type:URO Office Visit Appointment Date:12/07/2023 08:00:00 AM Scheduled Provider:Abran OCHOA MD Location:[facility] Appointment Type:URO Office Visit [facility] Evaluation note No assessment inform ation available [facility] Work Phone: Evaluation note Diagnosis Rectal bleeding- Primary Hemorrhage of rectum and anus Constipation, unspecified constipation type Prostate cancer (HCC) Malignant neoplasm of prostate [facility] Malignant neoplasm of prostate (HCC)- Primary Malignant neoplasm of prostate [facility] Author Juan Jiang [facility] May 29, 2023 8:21am Note Date/Time May 29, 2023 8:21am [facility] [address] [place] [address] Gastroenterology H&P Signed Patient: Jose Can MR#: [id number] : 1940 Acct:[id number] Age/Sex: 82 / M Adm Date: 3 Loc: Room: Type: [facility] Attending Dr: Juan Jiang MD Copies to: MD Juan De Guzman II, MD~ Date of Service: 05/29/2023 HISTORY & PHYSICAL: Patient's history with special attention to the cardiovascular, pulmonary systems and the current problem was reviewed with the patient immediately prior to the procedure. Present medications and doses reviewed in the EMR. Allergies and pertinent laboratory tests were also reviewedat this time in the EMR. The physical examination, as below, was then performed. Indication, assessment and HPI: 82-year-old man with history of colonic polyps here for surveillance colonoscopy Family history of GI malignancy? No PHYSICAL EXAMINATION Mouth and Pharynx : Moist mucus membranes, normal dentition Cardiac: Regular rate, regular rhythm Pulmonary: Clear to auscultation bilaterally, no wheezing Neurological: Alert and oriented x3, no focal deficits noted Abdomen: Abdomen soft, non-tender REVIEW OF SYSTEMS Constitutional: Denies malaise, fevers Cardiovascular: Denies chest pain, palpitations Respiratory: Denies shortness of breath, wheezing Gastrointestinal: Per HPI Genitourinary: Denies dysuria, polyuria Musculoskeletal: Denies joint swelling, joint stiffness Neurological: Denies numbness, tingling Integumentary: Denies rashes, skin lesions Endocrine: Denies fatigue, weight loss Written informed consent obtained from the patient. Risks (including but not limited to perforation, infection, bloating, bleeding, need for emergent surgeryand loss of life), benefits and alternatives explained and questions answered. The patient verbalized understanding. Based on history patient is an appropriate candidate for the procedure. Juan Jiang M.D. Documented By: Juan Jiang MD 05/29/23819 Signed By: <Electronically signed by Juan Jiang MD> 05/29/[address] [facility] Work Phone: Hospital course Narrative No data available for this section [facility] Hospital Discharge instructions Additional Instructions DISCHARGE INSTRUCTIONS FOR COLONOSCOPY WHAT TO EXPECT: - You may feel full, gassy or cramping after your procedure. In some cases, this may be from a few hours to a day. Walking may help relieve the discomfort. - If you have polyp(s) removed you may note some minor bloody discharge after your first bowel movements. - You should begin to recover from anesthesia within 1 hour of the procedure, however may feel groggy for the next 24 hours. DO's AND DON'Ts: - Call your doctor right away if you have a hard abdomen, severe pain, are passing lots of bright red blood or clots. - Call your doctor if you develop any rashes, hives or difficulty breathing. - Let your doctor know if you have not had a bowel movement by 3 days after your procedure. - If you take 81 mg aspirin for your heart it is safe to resume this medication. - If you take other blood thinner medications your doctor will instruct you when these can safely be resumed. - Do NOT drive for 24 hours. - Do NOT operate machinery such as power tools, lawn mowers, snow blowers, sewing machines, etc. for 24 hours. - Avoid alcoholic beverages and drugs for allergies, nerves, or sleep. - Do NOT stay alone. Do NOT leave your child unattended. - Do NOT make important personal or business decisions or sign any legal documents. - Eat solid foods and drink liquids in smaller amounts than usual until normal appetite returns. If you should experience an upset stomach, liquids high in sugar content (soda, Giuliano-Aid, non-acid juices) are recommended. - You can resume normal activities tomorrow. FOLLOW UP & RECOMMENDATIONS: -Notify the doctor if you have any problems. -Repeat colonoscopy in 5 years. -Follow up with PCP. -Office number [phone]. [facility] Work Phone: Hospital Discharge instructions No data available for this section [facility] progress note No data available for this section [facility] reason for referral (narrative) , Refer to Dr. Mendiola for [facility] Referred by: bAran OCHOA MD [facility] Summary Purpose Family History No Family History Records FoundNo Family History Records FoundNo Family History Records FoundNo Family History Records FoundNo Family History Records Found No data available for this section Advance Directives Advance Directive Response Recorded Date/ Time Advance Directives No December 06, 2 023 8:46am Chief Complaint and Reason for Visit Chief Complaint N40.2 Chief Complaint Screening Additional Source Comments (unrecognized sect ion and content) No Status Records FoundNo Status Records FoundNo Status Records FoundNo Status Records FoundNo Status Records Found INFORMATION SOURCE (unrecogn ized section and content) DATE CREATED AUTHOR 09/22/2021 [facility] dical Specialist DATE CREATED AUTHOR AUTHOR'S ORGANIZ ATION 10/18/2022 [facility] DATE CREATED AUTHOR AUTHOR'S ORGANIZ ATION 06/05/2023 [facility] DATE CREATED AUTHOR AUTHOR'S ORGANIZ ATION 09/08/2023 [facility] DATE CREATED AUTHOR AUTHOR'S ORGANIZ ATION 09/12/2023 [facility] Patient Care team informatio n (unrecognized section and content) Personnel Name: MARTIR HERBERT MD Address: Address: [address] [place] [id number] Team Status: Active Member Role Status Dates Martir Herbert II MD Primary Care Provider Active Team Status: Inactive Member Role Status Dates Martir Herbert II MD Primary Care Provider Active Abran Ochoa MD Attending Provider Active Dietetic Tech Relationship Specialty Start Date End Date Martir Herbert II [address] [facility] [address] [place] [address] PCP - General Internal Medicine 02/06/23 Dietetic Tech Relationship Specialty Start Date End Date Martir Herbert II, MD [address] [facility] [address] [place] [address] PCP - General Internal Medicine 02/06/23 Team Status: Inactive Member Role Status Dates Martir Herbert II MD Primary Care Provider Active Juan Jiang MD Attending Provider Active Dietetic Tech Relationship Specialty Start Date End Date Martir Herbert II, MD [address] [facility] [address] [place] [address] PCP - General Internal Medicine 02/06/23 Dietetic Tech Relationship Specialty Start Date End Date Martir Herbert II, MD [address] [facility] [address] [place] [address] PCP - General Internal Medicine 02/06/23 Dietetic Tech Relationship Specialty Start Date End Date Martir Herbert II, MD [address] [facility] [address] [place] [address] PCP - General Internal Medicine 02/06/23 Dietetic Tech Relationship Specialty Start Date End Date Martir Herbert II, MD [address] [facility] [address] [place] [address] PCP - General Internal Medicine 02/06/23 Goals (unrecognized section and content) Goals may be documented in a n alternate section Source Comments (unrecognize d section and content) In the event this informatio n is protected by the Federal Confidentiality of Alcohol and Drug Abuse Patient Records regulations: The Federal rules restrict any use of the information to criminally investigate or prosecute any alcohol or drug abuse patient.[facility] Hospital[facility] the event this information is protected by the Federal Confidentiality of Alcohol and Drug Abuse Patient Records regulations: The Federal rules restrict any use of the information to criminally investigate or prosecute any alcohol or drug abuse patient.[facility] Hospital[facility] the event this information is protected by the Federal Confidentiality of Alcohol and Drug Abuse Patient Records regulations: The Federal rules restrict any use of the information to criminally investigate or prosecute any alcohol or drug abuse patient.[facility] the event this information is protected by the Federal Confidentiality of Alcohol and Drug Abuse Patient Records regulations: The Federal rules restrict any use of the information to criminally investigate or prosecute any alcohol or drug abuse patient.[facility] HospitalIn the event this information is protected by the Federal Confidentiality of Alcohol and Drug Abuse Patient Records regulations: The Federal rules restrict any use of the information to criminally investigate or prosecute any alcohol or drug abuse patient.[facility] HospitalIn the event this information is protected by the Federal Confidentiality of Alcohol and Drug Abuse Patient Records regulations: The Federal rules restrict any use of the information to criminally investigate or prosecute any alcohol or drug abuse patient.[facility] HospitalIn the event this information is protected by the Federal Confidentiality of Alcohol and Drug Abuse Patient Records regulations: The Federal rules restrict any use of the information to criminally investigate or prosecute any alcohol or drug abuse patient.[facility] Reason for Visit (unrecogniz ed section and content) Reason Comments Constipation Rectal Bleeding Future Appointment Reason Comments Appointment FOR RECORDS PERTAINING TO PATIENTS WHO ARE OR HAVE BEEN ENROLLED IN A CHEMICAL DEPENDENCY/SUBSTANCEABUSE PROGRAM, SOME INFORMATION MAY BE OMITTED. This clinical summary was aggregated from multiple sources. Caution should be exercised in using it in the provision of clinical care. This summary normalizes information from multiple sources, and as a consequence, information in this document may materially change the coding, format and clinical context of patient data. In addition, data may be omitted in some cases. CLINICAL DECISIONS SHOULD BE BASED ON THE PRIMARY CLINICAL RECORDS. [employer] [facility]. provides no warranty or guarantee of the accuracy or completeness of information in this document.
== END 2023-09-13 03:45 | disposition home or self-care (01) ==
PROVIDERS: Emergency Provider Emergency Medicine; PCP Internal Medicine
DX: R33.9 Retention of urine, unspecified (principal); C61 Malignant neoplasm of prostate; Z79.82 Long term (current) use of aspirin; Z79.899 Other long term (current) drug therapy; E78.00 Pure hypercholesterolemia, unspecified; Z87.442 Personal history of urinary calculi; H91.90 Unspecified hearing loss, unspecified ear; I10 Essential (primary) hypertension; Z98.49 Cataract extraction status, unspecified eye; Z98.890 Other specified postprocedural states
CPT/HCPCS: 51702; 87086; 99283

== ENCOUNTER 2023-10-08 08:39 | Outpatient (OUT) | payer MEDICARE, OTHER, SELFPAY ==
--- OUTSIDE RECORDS SUMMARY | 2023-10-08 08:44 | XMS_ITS | CCD ---
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 Name Role Phone MARTIR HERBERT Primary Care Physician EKON, DR POPE Admitting Unavailable HERBERT, DR POPE Primary Care Unavailable HERBERT, DR POPE Consulting Unavailable HERBERT, DR POPE Attending Unavailable OCHOA, DR OSULLIVAN Attending Unavailable HERBERT, DR POPE Primary Care Unavailable OCHOA, DR OSULLIVAN Admitting Unavailable LADAN, DR OSULLIVAN Consulting Unavailable MANGO Herbert Primary Care Provider MD Abran Ochoa Attending Provider Martir Herbert II Primary Care Provider Keon COBIAN MD, Daniel B Primary Care Provider [phone] MANGO Herbert Primary Care Provider MD Juan Jiang Attending Provider Juan Jiang Attending Unavailable Martir Herbert Primary Care Unavailable Juan Jiang Admitting Unavailable Ochoa, Abran Admitting Unavailable Abran Ochoa Attending Unavailable Martir Herbert Primary Care Unavailable OCHOA, Abran R Attending Unavailable OCHOA, Abran R Referring Unavailable OCHOA, Abran R Admitting Unavailable OCHOA, Abran R Attending Unavailable OCHOA, Abran R Attending Unavailable OCHOA, Abran R Attending Unavailable OCHOA, Abran R Attending Unavailable OCHOA, Abran R Attending Unavailable OCHOA, Abran R Attending Unavailable OCHOA, Abran R Attending Unavailable OCHOA, Abran R Attending Unavailable MARTIR HERBERT II Primary Care Unavailable Jc MENDIOLA Attending Unavailable LADAN, ABRAN Darling Referring Unavailable MARTIR HERBERT II Primary Care Unavailable MARTIR HERBERT II Primary Care Unavailable Jc MENDIOLA Attending Unavailable MARTIR HERBERT II Primary Care Unavailable Jc MENDIOLA Attending Unavailable MARTIR HERBERT II Primary Care Unavailable Jc MENDIOLA Attending Unavailable Allergies Allergy Classification Reported Allergen(s) Allergy Type Date of Onset Reaction(s) Facility (7 sources) Penicillin; Translations: [penicillin] Drug Allergy Unknown (qualifier value) [facility] (7 sources) Sulfonamides; Translations: [sulfonamides] Drug allergy Unknown (qualifier value) [facility] (3 sources) Penicillins; Translations: [PENICILLINS] Drug allergy (disorder) 3 Hives [facility] Repository (1 source) Sulfonamides (Antibiotic) Drug allergy (disorder) 3 [facility] Repository (7 sources) Penicillins Drug Allergy 3 [facility] (8 sources) Sulfonamides (Antibiotic); Translations: [SULFA (SULFONAMIDE ANTIBIOTICS)] Drug Allergy 3 [facility] (1 source) Penicillins Drug allergy (disorder) 3 [facility] Repository (1 source) Unable to Assess Drug allergy (disorder) 3 [facility] Repository Medications Current Medications Medication Drug Class(es) Dates Sig (Normalized) Sig (Original) acetaminophen 325 mg / HYDROcodone bitartrate 7.5 mg oral tablet (1 source) Opioid Agonist Start: 01-04-2023 take 1 tablet by mouth once, then take 1 tablet by mouth every hour [place] 325 mg-7.5 mg oral tablet 1 tab(s), Oral, Once, 1 tab(s), Refill(s) 0, Take 1 hour prior to procedure, [facility]/pharmacy #[id number], 175, cm, 12/04/22 12:29:00 EDT, Height/Length [...] 12:00am administer with a meal Vit D3-Vit K2-[place] Ext (1 source) Start: 05-29-2023 take 1 capsule by mouth once daily Vit D3-Vit K2-[place] Ext Active 25 CAP PO Daily May [...] by mouth. lisinopril 10 mg oral tablet (14 sources) Angiotensin Converting Enzyme Inhibitor Start: 01-05-2023 lisinopril (ZESTRIL) 10 mg tablet Start: 10-28-2019 Co Lisinopril Refills(s) 0 Start Date: 10/28/19 Status: Ordered omega-3 acid ethyl esters (longterm) 1000 mg oral capsule (8 sources) Start: 01-05-2023 omega-3 acid e thyl esters (LOVAZA) 1 gram capsule OTC PRODUCT (7 sources) OTC PRODUCT Eye and vision supplement 0 Active Comment on above: Eye and vision suppl ement Polyethylene Glycols (7 sources) polyethylene gly col 3350 (CLEARLAX ORAL) Take by mouth. 0 Active Comment on above: Take by mouth. simvastatin 20 mg oral tablet (14 sources) HMG-CoA Reductase Inhibitor Start: 01-05-2023 simvastatin (ZOCOR) 20 mg tablet Start: 10-28-2019 simvastatin Re fills(s) 0 Start Date: 10/28/19 Status: Ordered Problems Problem Classification Problem Date Documented Da te Episodic/Chronic Cancer of prostate (3 sources) Malignant neoplasm of prostate; Translations: [Malignant tumor of prostate] Onset: 02-05-2023 Chronic Cancer; other and unspecified primary (6 sources) H/O Malignant melanoma 10-28-2019 Episodic Disorders of lipid metabolism (4 sources) Mixed hyperlipidemia; Translations: [MIXED HYPERLIPIDEMIA] Onset: 03-04-2022 Chronic Gastrointestinal hemorrhage (1 source) Rectal hemorrhage; Translations: [Hemorrhage of anus and rectum] 05-03-2023 Episodic Genitourinary symptoms and ill-defined conditions (6 sources) Increased frequency of urination 09-01-2020 Episodic Hyperplasia of prostate (16 sources) Benign prostatic hypertrophy with outflow obstruction; Translations: [Prostate nodule] Onset: 12-04-2022 10-28-2019 Chronic Other gastrointestinal disorders (1 source) Constipation; Translations: [Constipation, unspecified] 05-03-2023 Episodic Other nutritional; endocrine; and metabolic disorders (6 sources) Body mass index 25-29 - overweight 09-01-2020 Episodic Other screening for suspected conditions (not mental disorders or infectious disease) (11 sources) Raised prostate specific antigen; Translations: [Elevated [...] Range Facil ity Ambulatory Visit Summaryon 1 Ambulatory Visit Summary JOSE CAN :1940 Visit Date:09/21/2023 Ambulatory Visit Instructions Your Care Team Attending Physician - LADAN EDWARDS, Abran Darling Primary Care Physician - KEON EDWARDS, MARTIR [...] EDWARDS, Abran Darling Where: [facility] Normal [address] [place] [address]- \.br\ Medications\.br\ What When Instructions\.br \ Unchanged [...] for choosing us for your care.\.br\ \.br\ [facility] CNOVon 09-19-2023 CNOV Office Visit (RADTSA ) JOSE CAN ([id number]) 1940 M Date Time Provider Department 09/19/23 9:15 AM Jc MENDIOLA During your visit today, we recorded the following information about you: Temperature Pulse Respiration Blood pressure 97.3 degrees 64/minute 16/minute 153/83 Weight 89.4 kg Jc Mendiola MD 09/19/2023 4:02 PM Signed Radiation Oncology - Follow Up Note PATIENT NAME: Jose Can PATIENT DIAGNOSIS: Prostate adenocarcinoma, 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 RADIATION SUMMARY: Prostate brachytherapy 09/06/2023: I-125, 145 [place], 61 sources, 23.67 millicurie. INTERVAL HISTORY: The patient presents for routine follow-up after recent prostate brachytherapy. Patient did develop obstructive uropathy had catheter replaced. Still with indwelling catheter. Denies bleeding. Denies pain or fever. No bowel related changes or issues. PSA HISTORY: No results found for: PSA , PSAPER ALLERGIES Allergen Reactions Penicillins Rash Sulfa (Sulfonamide [...] daily. OTC PRODUCT Eye and vision supplement REVIEW OF SYSTEMS: D/N = N/A Hematuria: No Dysuria: No Catheter use: Yes Medications to aid urination: y Bowel movement frequency: 1/day Bowel movement quality: normal Androgen deprivation: Never. PHYSICAL EXAM: BP 153/83 Pulse 64 Temp 36.3 ?C (97.3 ?F) Resp 16 Wt 89.4 kg (197 lb 1.5 oz) SpO2 97% BMI 29.11 kg/m? KPS: 100 General Appearance: Alert and oriented. No acute distress. Rectal exam is deferred. Perineal area without ecchymosis, tenderness or seroma. 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 Status post prostate brachytherapy implant 09/06/2023. Patient overall doing fairly well though with obstructive issues requiring catheter. No other new problems. Plan to have patient back in 2 weeks for post-implant CT, return for follow-up exam in 4 weeks. He continues close follow-up with Dr. Ochoa. Signed by: Jc Mendiola MD cc: Martir Herbert II, MD [address] [address] No referring provider defined for this encounter. Allergies As of Date: 09/19/2023 Noted Allergy Reaction PENICILLINS 02/16/2023 2 - Rash SULFA (SULFONAMIDE ANTIBIOTICS) 02/16/2023 2 - Rash Date Reviewed: 09/19/2023 Reviewed by: Debra Quinn LPN - Fully Assessed Reason for Visit: Prostate Cancer [590] Primary Visit Diagnosis:Malignant neoplasm of prostate (HCC) [C61] Order(s):PSA/PROSTSPEC AG DIAG [SQPSA] Order #: [id number] FUTURE Prescriptions as of 09/19/2023 - simvastatin (ZOCOR) 20 mg tablet - [...] vision supplement Problem List As Of Date: 09/19/2023 (None) Follow-up and Disposition History for Encounter Date Provider Department Center 09/19/2023 [id number] MENDIOLASUSIE MARYCRUZ YUNIER Encounter Status:Closed by Jc MENDIOLA on 09/19/23 [facility] Ambulatory Visit Summaryon 1 2-20-2023 Ambulatory Visit Summary JOSE CAN :1940 Visit Date:09/12/2023 Ambulatory Visit Instructions Your Care Team Attending Physician - LADAN EDWARDS, Abran Darling Primary Care Physician - MARTIR HERBERT MD This Is Your Medications List lisinopril (Co [...] EDWARDS, Abran Darling Where: [facility] [address] [place] [address] \.br\ Medications\.br\ What When Instructions\.br \ Unchanged [...] for choosing us for your care.\.br\ \.br\ [facility] Lab Reportson 09-07-2023 Lab Reports [id number]#1.0 0TIFF Normal [facility] Operative Reporton Operative Report [id number]#1.0 0TIFF Normal [facility] RAD - MISCon 09-07-2023 RAD - MISC [id number]#1.0 0TIFF Normal [facility] CNOVon 09-06-2023 CNOV Office Visit (RADTSA ) JOSE CAN ([id number]) 1940 M Date Time Provider Department 09/06/23 9:00 AM Jc MENDIOLA During your visit today, we recorded the following information about you: Jc Mendiola MD 09/06/2023 3:18 PM Signed Date: 09/06/23 Facility: [facility] Procedure: prostate transperineal brachytherapy implant Diagnosis: [...] activity seen, results documented. Edilma Mendiola MD [facility] Allergies As of Date: 09/06/2023 Noted Allergy [...] Encounter Status:Closed by Jc MENDIOLA on 09/06/23 Normal [facility] Consultation Noteon 08-10-20 Consultation Note [id number]#1.0 0TIFF Normal [facility] CNPRosa Isela 07-24-2023 CNPN Telephone (RADTSA) JOSE CAN ([id number]) 1940 M Date Time Provider Department 07/24/23 Jc MENDIOLA During your visit today, we recorded the following information about you: Debra Quinn LPN 07/24/2023 10:01 AM Signed Christina with [...] prostate seed implant and follow ups. Debra Quinn RN Allergies As of Date: 07/24/2023 Noted [...] Date: 07/24/2023 (None) Encounter Status:Closed by DEBRA QUINN on 07/25/23 Normal [facility] ECG 12-Leadon 07-24-2023 ECG 12-Lead [id number]#1.0 0TIFF Normal [facility] Formson 07-24-2023 Forms [id number]#1.0 0TIFF Normal [facility] ECG 12-Leadon 07-20-2023 ECG 12-Lead [id number]#1.0 0TIFF Normal [facility] Lab Reportson 07-20-2023 Lab Reports [id number]#1.00 TIFF Normal [facility] Lab Reports [id number] .00TIFF Normal [facility] Lab Reports [id number]#1.00 TIFF [facility] RAD - MISCon 07-20-2023 RAD - MISC [id number]#1.00 TIFF Normal [facility] CNOVon 07-11-2023 CNOV Office Visit (RADTSA ) JOSE CAN ([id number]) 1940 M Date Time Provider Department 07/11/23 [...] Encounter Status:Closed by Jc MENDIOLA on 07/12/23 [facility] Consent for Procedure/Surger yon 06-27-2023 Consent for Procedure/Surgery [id number]#1. 00CD:127 [facility] Rebecca 06-04-2023 CNPN Telephone (RADTSA) JOSE CAN ([id number]) 1940 M Date Time Provider Department 06/04/23 [...] Encounter Status:Closed by NICHELLE ELKINS on 06/04/23 [facility] 05-29-2023 L -- ---- Specimen: [id number] Received: 05/29/23 Status: RANDI Capellan Num: [id number] Spec Type: Surgical Subm Dr: Juan Jiang MD Tissues: A Colon Biopsy (ASCENDING POLYP) Procedures: HE/2, Gross/Micro L4 ---- Age/ Patient Sex Location Account Attending Physician ---- Jose Can 82/M [id number] Juan Jiang MD ---- SPEC NUM: [id number] RECD: 05/29/23 STATUS: RANDI CAPELLAN NUM: [id number] FAIZAN: 05/29/23- [facility] DR: Juan Jiang MD ENTERED: 05/29/23 [facility] DR: IRVIN TYPE: Surgical DEPT: S ORDERED: HE/2, Gross/Micro [...] microscopic examination confirms the diagnosis. CPT Codes 47439 ---- ---- Specimen: [id number] Received: 05/29/23 Status: RANDI Capellan Num: [id number] Spec Type: Surgical Subm Dr: Juan Jiang MD Tissues: A Colon Biopsy (ASCENDING POLYP) Procedures: Areli RAMIREZ/Phuc L4 ---- Patient: Jose Can [id number] (Continued) ---- Signed (signature on file) Kashmir Linares MD 05/31/23 [facility] CNPNon 05-02-2023 CNPN Telephone (RADBreitbart News NetworkA) JOSE CAN ([id number]) 1940 M Date Time Provider Department 05/02/23 Jc MENDIOLA During your visit today, we recorded the following information about you: Nichelle Elkins, NATALIO 05/02/2023 2:54 PM Signed Pts dtr called [...] colonoscopy was done per Dr Franco at [facility] in 2016. It was normal. Dr Mendiola-- please advise. NATALIO Woodson Angela, RN 05/03/2023 9:46 AM Signed Call placed to let Enriqueta know that Dr Mendiola would like patient to have a colonoscopy prior to scheduling seed implant. LM requesting cb. NATALIO Woodson Angela, NATALIO 05/03/2023 9:58 AM Signed MARY- please sign [...] tell me when they scheduled it for. 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 Normal [facility] Consultation Noteon 02-17-20 Consultation Note [id number]#1.0 0CD:127 Normal [facility] Patient Educationon 02-06-20 Patient Education Oncology Prostate [...] under a microscope. This is called the Barrington score and the total score can range from 6?10, indicating how likely it is that the cancer will spread (metastasize) to other parts of the body. The higher the score, the greater the likelihood that the cancer will spread. ? Alpa 6 or lower: This indicates that the cancer cells look similar to normal prostate cells (well differentiated). ? Barrington 7: This indicates that the cancer cells look somewhat similar to normal prostate cells (moderately differentiated). ? Barrington 8, 9, or 10: This indicates that [...] external be (more content not included)... Normal [facility] Progress Note-Nurseon 2022 Progress Note-Nurse JOSE CAN :1940 Visit Date:02/05/2023 Ambulatory Visit Instructions Your Diagnosis Prostate cancer Prostate nodule BPH with obstruction/lower urinary tract symptoms Elevated PSA Tests Performed Urnls Dip Stick Auto w/o Microscopy POC 39591 Your Care Team Attending Physician - LADAN EDWARDS, Abran Darling Primary Care Physician - KEON EDWARDS, MARTIR Griffin This Is Your Medications List Contact prescribing physician if questions or concerns lisinopril (Co Lisinopril) simvastatin [Image Removed: STOP]Stop taking these medications acetaminophen-hydrocod one ([place] 325 mg-7.5 mg oral tablet) Procedures Performed [...] of [facility]io Normal Prostate nodule\.br\ Medications\.br\ What When Instructions\.br \ Unchanged lisinopril (Co Lisinopril) Contact prescribing physician if questions or concerns \.br\ Unchanged simvastatin Contact prescribing physician if questions or concerns \.br\ \.br\ What How Much When Why Comments\.br\ Stop Taking acetaminophen-hy drocodone ([place] 325 mg-7.5 mg oral tablet) 1 Tablets By Mouth Once Prostate nodule Take 1 hour prior to procedure \.br\ Test Results\.br\ Urnls Dip Stick Auto w/o Microscopy POC 18353 (02/05/2023)\.br \ Bilirubin Urine Dipstick - Negative\.br\ Blood Urine Dipstick - Negative\.br\ Glucose Urine Dipstick - Negative\.br\ Ketones Urine Dipstick - Negative\.br\ Leukocytes Urine Dipstick - Negative\.br\ Nitrite Urine Dipstick - Negative\.br\ Protein Urine Dipstick - Negative\.br\ Specific Dexter Urine Dipstick - 1.020\.br\ Urine Appearance Urine [...] under a microscope. This is called the Barrington score and the total score can range from 6?10, indicating how likely it is that the cancer will spread (metastasize) to other parts of the body. The higher the score, the greater the likelihood that the cancer will spread.\.br\ ? \.br\ Barrington 6 or lower: This indicates that the cancer cells look similar to normal prostate cells (well differentiated). \.br\ ? \.br\ Barrington 7: This indicates that the cancer cells look somewhat similar to normal prostate cells (moderately differentiated). \.br\ ? \.br\ Alpa 8, 9, or 10: This indicates [...] testosterone, one of the male hormones, by:\ [facility] Urology Office/Clinic Noteon 02-05-2023 Urology Office/Clinic Note [...] done 01/16/2023 are positive for Prostate cancer. Barrington 3+3= 6 (4 cores) and Alpa 3 [...] cons of each therapy today, and this [place] prostate cancer book was provided. Patient given his age, and Alpa score is not a surgical candidate for prostatectomy. Patient is very active with work and is leaning toward maybe just doing [employer]. He will need referral to Dr. Mendiola for consultation. 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 2. Prostate nodule (N40.2: Nodular prostate without [...] Ochoa. Will refer to Dr. Mendiola for [employer] implant in . Follow-up With When Contact Information LADAN EDWARDS, ISSAC Lozano In 6 months [facility] [address], [place] [address]- [phone] Additional Instructions: Will refer to Dr. Mendiola Patient Education Prostate Cancer I, Christina Lima, personally scribed for Dr. Ochoa on 02/05/2023 09:36:02. . Documentation recorded by the scribaaron baker, accurately reflects the services(s) I performed and [...] biopsy of (more content not included)... Normal [facility] Comment on above: Result Comment: Elec tronically Signed By: Abran OCHOA MD\.br\Date and Time Signed: 02/05/23 09:38 EDT\.br\Electronically Co-Signed By: Christina Lima\.br\Date and Time Co-Signed: 02/05/23 09:36 EDT Prostate Histology ([facility]) on 01-29-2023 Prostate Histology Diagnosis Info Invalid Interpretation Code [facility] Comment on above: Result Comment: A:Pr ostate,Left Lateral Base:Needle Biopsy Interpretation - - Benign prostatic tissue. MicroScopic Description - B:Prostate,Left Lateral Mid:Needle Biopsy Interpretation - - Benign prostatic tissue with patchy chronic inflammation. MicroScopic Description - C:Prostate,Left Lateral [place]:Needle Biopsy Interpretation - - Benign prostatic tissue. MicroScopic Description - D:Prostate,Left Base:Needle Biopsy Interpretation - - Acinar adenocarcinoma of prostate; Barrington score 6(3+3); Tumor measures 0.5 cm in length; 25% of the core involved by tumor; 1 of 2 cores involved (see comment). MicroScopic Description - E:Prostate,Left Mid:Needle Biopsy Interpretation - - Benign prostatic tissue with patchy chronic inflammation. MicroScopic Description - F:Prostate,Left [place]:Needle Biopsy Interpretation - - Benign prostatic tissue. MicroScopic Description - G:Prostate,Right Base:Needle Biopsy Interpretation - - Acinar adenocarcinoma of prostate; Alpa score 6(3+3); Tumor measures 0.2 cm in length; 12% of the core involved by tumor; 1 of 1 core involved (see comment) MicroScopic Description - H:Prostate,Right Mid:Needle Biopsy Interpretation - - Benign prostatic tissue with patchy chronic inflammation. MicroScopic Description - I:Prostate,Right [place]:Needle Biopsy Interpretation - - Acinar adenocarcinoma of prostate; Alpa score 7(3+4); Tumor measures 0.21 cm in length; 26% of the core involved by tumor; 1 of 1 core involved (see comment). MicroScopic Description - J:Prostate,Right Lateral Base:Needle Biopsy Interpretation - - Acinar adenocarcinoma of prostate; Alpa score 6(3+3); Tumor measures 0.35 cm in length; 25% of the core involved by tumor; 1 of 1 core involved (see comment). MicroScopic Description - K:Prostate,Right Lateral Mid:Needle Biopsy Interpretation - - Benign prostatic tissue with patchy chronic inflammation. MicroScopic Description - L:Prostate,Right Lateral [place]:Needle Biopsy Interpretation - - Acinar adenocarcinoma of prostate; Barrington score 6(3+3); Tumor measures 0.15 cm in [...] cores 1 units cm Highest grade group: Barrington score 3+4=7, grade group 2. Highest percentage [...] The performance characteristics were determined by the [facility] Lookwider, Brookesmith, MD. They have not been cleared by the [place] Food and Drug Administration. The FDA has determined that such clearance or approval is not necessary. Appropriate positive and negative controls are performed and are acceptable. Electronically signed by : on: 01/29/2023 13:43:29 Performed By: #### 1 [id number] ####[facility] [id number] [place] [address] Consent for Procedure/Surger yon 01-16-2023 Consent for Procedure/Surgery [id number]#1.0 0CD:127 Normal [facility] Consent for Treatmenton - Consent for Treatment [id number]#1.0 0CD:127 Normal [facility] IntraOperative Documentson 0 01-16-2023 IntraOperative Documents [id number]#1.0 0CD:127 Normal [facility] Main OR Intraoperative Recor don 01-16-2023 Main OR Intraoperative Record IntraOp Document Type FTURO Summary Primary Physician: Abran OCHOA MD Finalized Date/Time: 01/16/23 09:23:49 Pt. Name: JOSE CAN/Sex: 1940 Male Med Rec #: [id number] Physician: Abran OCHOA MD Financial #: [id number] Pt. Type: O Room/Bed: / Admit/Disch: 01/16/23 08:00:37 - Institution: Case Times FTURO Entry 1 Patient Times In Room 01/16/23 09:05:00 Out Room 01/16/23 09:27:00 Procedure Times Start 01/16/23 09:08:00 Stop 01/16/23 09:22:00 Anesthesia Times Last Modified By: Helga LANCE, Kacie SEGUNDO 01/16/23 09:22:56 Case Attendance FTURO Entry 1 Entry 2 Entry 3 Case Attendee LADAN EDWARDS, Abran Partida RN, CARLENEOR, Rolando PHAM, Ileana Hester Role Performed Surgeon - Primary Direct Support Specialist - Primary Scrub - Primary Time In 01/16/23 09:05:00 01/16/23 09:05:00 01/16/23 09:05:00 Time Out 01/16/23 09:27:00 01/16/23 09:27:00 01/16/23 09:27:00 Procedure PROSTATE TRANSRECTAL PROSTATE TRANSRECTAL PROSTATE TRANSRECTAL ULTRASOUND WITH BIO(.) ULTRASOUND WITH BIO(.) ULTRASOUND WITH BIO(.) Sherif wright rn orienting Last Modified By: Helga LANCE, CNOR, Helga LANCE, CARLENEOR, Helga LANCE, CARLENEOR, Kacie 01/16/23 Kacie 01/16/23 [...] - Clean-Contaminated Last Modified By: Helga LANCE, SANYA, Kacie 01/16/23 09:23:01 General Case Data FTURO Pre-Care Text: Classifies surgical wound, implements aseptic technique, initiates traffic control Entry 1 Case Information OR URO 1 FT Case Level None Wound Class 2 - Clean-Contaminated Specialty Urology Preop Diagnosis PROSTATE NODULE Postop Same As Preop Yes PROSTATE LESION Postop Diagnosis PROSTATE NODULE Outcomes Met? Yes PROSTATE LESION Last Modified By: Helga LANCE, CARLENEOR, Kacie 01/16/23 09:13:22 Post-Care Text: The patient is [...] Position Verified Availability Equipment, Medication Time Out Abran OCHOA MD, Verified (If Participants Helga LANCE, CNOR, Applicable) Rolando Hester CST, Kimberly A Time Out Complete 01/16/23 09:07:00 Allergies Reviewed? [...] SANYA Partida RN, Ruthann 01/16/23 09:23 Normal [facility] Main OR Preoperative Recordo n 01-16-2023 Main OR Preoperative Record Holding Area Document Type FTURO Summary Primary Physician: Abran OCHOA MD Finalized Date/Time: 01/16/23 09:17:56 Pt. Name: OJSE CAN/Sex: 1940 Male Med Rec #: [id number] Physician: Abran OCHOA MD Financial #: [id number] Pt. Type: O Room/Bed: / Admit/Disch: 01/16/23 [...] No Pain Comment: na Skin Integrity Intact, [place], Warm, & Dry Vitals - EU Blood Pressure 147/71 Pulse 55 bpm Respirations 18 br/min SPO2 98 % RN Reviewed Yes Last Modified By: SANYA Partida RN, Ruthann 01/16/23 09:17:53 General Comments: temp:97.2 Finalized By: SANYA Partida RN, Ruthann Document Signatures Signed By: Atiya Ken LPN 01/16/23 08:14 SANYA Partida RN, Ruthann 01/16/23 09:17 Normal [facility] Operative Reporton Operative Report Patient: JOSE CAN [...] biopsies was taken and sent to pathology.. Normal [facility] Comment on above: Result Comment: Elec tronically Signed By: LADAN EDWARDS, Abran Darling\.[place]\Date and Time Signed: 01/16/23 09:30 EDT Patient [...] for your post-operative appointment in 1-2 weeks [phone] or [phone] Normal [facility] Prostate Histology ([facility]) on 01-16-2023 PH Method of Extraction Needle Biopsy Normal [facility] Comment on above: Performed By: #### 1 [id number] ####[facility] [address] [place] [address] PH Number of Jars 2 Invalid Interpretation Code [facility] Comment on above: Performed By: #### 1 [id number] ####[facility] [address] [place] [place] [address] PH Specimen 1 L Apx Prostate Normal [facility] Comment on above: Performed By: #### 1 [id number] ####[facility] [address] [place] [place] [address] PH Specimen 10 R Lat Bse Prost Normal [facility] Comment on above: Performed By: #### 1 [id number] ####[facility] [address] [place] [place] [address] PH Specimen 11 R Lat Mid Pr 1 Normal [facility] Comment on above: Performed By: #### 1 [id number] ####[facility] [address] [place] [address] PH Specimen 12 R Mid Prost 1 Normal [facility] Comment on above: Performed By: #### 1 [id number] ####[facility] [address] [place] [address] PH Specimen 2 L Base Prostate Normal [facility] Comment on above: Performed By: #### 1 [id number] ####[facility] [address] [place] [address] PH Specimen 3 L Lat Apx Prost Normal [facility] Comment on above: Performed By: #### 1 [id number] ####[facility] [address] [place] [address] PH Specimen 4 L Lat Bse Prost Normal [facility] Comment on above: Performed By: #### 1 [id number] ####[facility] [address] [place] [address] PH Specimen 5 L Mid Prost 1 Normal [facility] Comment on above: Performed By: #### 1 [id number] ####[facility] [address] [place] [address] PH Specimen 6 L Lat Mid Pr 1 Normal [facility] Comment on above: Performed By: #### 1 [id number] ####[facility] [address] [place] [address] PH Specimen 7 R Apx Prostate Normal [facility] Comment on above: Performed By: #### 1 [id number] ####[facility] [address] [place] [address] PH Specimen 8 R Base Prostate Normal [facility] Comment on above: Performed By: #### 1 [id number] ####[facility] [address] [place] [address] PH Specimen 9 R Lat Apx Prost Normal [facility] Comment on above: Performed By: #### 1 [id number] ####[facility] [address] [place] [address] PH Type of Service Technical Only Normal [facility] Comment on above: Performed By: #### 1 [id number] ####[facility] [address] [place] [address] RAD - MRI Reporton 3 RAD - MRI Report [id number] 0CD:127 Normal [facility] Creatinine (Bld) [Mass/Vol]O rdered By: Abran Ochoa on 12-19-2022 Creatinine [Mass/Vol] 0.9 mg/dL 0.6-1.3 [facility] Comment on above: ER/ESD physician is notified/shown all ISTAT results.Critical values may be confirmed by laboratory testing ifdeemed necessary by ER attending doctor. MR prostate wo/w conon 12-19 MR prostate wo/w con [facility] [place] [address] [place] [address] MRI Report Signed Patient: Jose Can MR#: [id number] : 1940 Acct:[id number] Age/Sex: 82 / M ADM Date: 12/19/22 Loc: Room: Type: [facility] Attending Dr: Abran Ochoa MD Copies to: Abran Ochoa MD Ordering Provider: Abran Ochoa MD Date of Service: 12/19/22 MR/MR prostate wo/w con: N40.2 EXAMINATION: MR prostate wo/w con HISTORY: Elevated PSA. COMPARISON: NONE TECHNIQUE: Multiparametric imaging of the prostate gland was performed with IV contrast. FINDINGS: Examination is suboptimal due to motion. The small jlkvo-ip-ymxz T2-weighted images are significantly limited. Prostate Dimensions: [...] recommended. Impression dictated by: Ede Blank Jr., D.OParvin12/19/2022 12:05 PM Dictation Location: [place] [address] Transcribed By: [facility] 12/19/22 1205 Dictated By: Ede Blank Jr, DO 12/19/22 1150 Signed By: 12/19/22 1205 [facility] Ambulatory Visit Summaryon 0 12-04-2022 Ambulatory Visit Summary JOSE CAN :1940 Visit Date:12/04/2022 Ambulatory Visit Instructions Your Diagnosis BPH with obstruction/lower urinary tract symptoms Prostate nodule Tests Performed Urnls Dip Stick Auto w/o Microscopy POC 97470 Your Care Team Attending Physician - Abran [...] Appointments Follow Up with LADAN EDWARDS, Abran R, URL When: Where: [facility] [address] [place] [address]- Medications What When Instructions Unchanged lisinopril (Co Lisinopril) Contact prescribing physician if questions or concerns Unchanged simvastatin Contact prescribing physician if questions or concerns Test Results Urnls Dip Stick Auto w/o Microscopy POC 25421 (12/04/2022) Bilirubin Urine Dipstick - Negative Blood Urine Dipstick - Negative Glucose Urine Dipstick - Negative Ketones Urine Dipstick - Negative Leukocytes Urine Dipstick - Negative Nitrite Urine Dipstick - Negative Protein Urine Dipstick - Negative Specific Dexter Urine Dipstick - >=1.030 Urine Appearance Urine [...] may refe (more content not included)... Normal [facility] Patient Educationon 12-05-19 Patient Education Urology Benign [...] Follow these instructions at home: ? Take aijy-xfh-bdvpaqq and prescription medicines only as told by [...] You d (more content not included)... Normal [facility] Urology Office/Clinic Noteon 12-04-2022 Urology Office/Clinic Note [...] Abran Darling, URL [facility] [address], [place] [address]- Additional Instructions: schedule MRI Patient Education Benign Prostatic Hyperplasia I, Debi Vidal, personally scribed for Dr. Ochoa on 12/04/2022 [...] (12/04/22 12:25:00) (more content not included)... Normal [facility] Comment on above: Result Comment: Elec tronically Signed By: Abran OCHOA MD\.br\Date and Time Signed: 12/04/22 12:54 EDT\.br\Electronically Co-Signed By: Debi Vidal\.br\Date and Time Co-Signed: 12/04/22 12:53 EDT Lab Reportson 10-20-2022 Lab Reports [id number] 0CD:127 Normal [facility] PSA, FREE AND TOTAL RATIOon 10-18-2022 % Free PSA 21.9 % Normal [facility] Comment on above: Result Comment: The table [...] men. Performed By: #### P SAFREE #### [facility] [address] [place] [address] Deisi Bush Prostate specific Ag [Mass/Vol] 3.1 ng/mL Normal 0.0-4.0 [facility] Comment on above: Result Comment: Cris baker ECLIA methodology. . According to the [place] [employer], Serum PSA should decrease and [...] disease. Performed By: #### P SAFREE #### [facility] [address] [place] [address] Dr. Deisi Bush PSA, Free 0.68 ng/mL Normal N/A [facility] Comment on above: Result Comment: Cris PRAJAPATI methodology. Performed By: #### P SAFREE #### [facility] [address] [place] [address] Dr. Deisi Bush CBC AUTO DIFFon 03-04-2022 BASO # 0.0 103/ul Normal 0.0-0.1 [facility] Comment on above: Performed By: #### C BC #### [facility] [address] [place] [address] Dr. Deisi Bush Basophils/100 WBC (Bld) 0.6 % Normal 0.2-2.0 [facility] Comment on above: Performed By: #### C BC #### [facility] [address] [place] [address] Dr. Deisi Bush EO # 0.5 103/ul Normal 0.0-0.7 [facility] Comment on above: Performed By: #### C BC #### [facility] [address] [place] [address] Dr. Deisi Bush Eosinophils/100 WBC (Bld) 10.2 % Critically high 0.9-7.0 [facility] Comment on above: Performed By: #### C BC #### [facility] [address] [place] [address] Dr. Deisi Bush Erythrocyte distribution width (RBC) [Ratio] 13.4 % Normal 11.0-15.0 [facility] Comment on above: Performed By: #### C BC #### [facility] [address] [place] [address] Dr. Deisi Bush Hematocrit (Bld) [Volume fraction] 42.3 % Normal 42.0-54.0 [facility] Comment on above: Performed By: #### C BC #### [facility] [address] [place] [address] Dr. Deisi Bush Hemoglobin (Bld) [Mass/Vol] 14.1 g/dL Normal 14.0-18.0 [facility] Comment on above: Performed By: #### C BC #### [facility] [address] [place] [address] Dr. Deisi Bush IG # 0.01 10e3/ul Normal 0.00-0.03 [facility] Comment on above: Performed By: #### C BC #### [facility] [address] [address] [address] Deisi Bush IG % 0.2 % Normal 0.0-0.5 [facility] Comment on above: Performed By: #### C BC #### [facility] [address] [place] [address] Dr. Deisi Bush LYMPH # 2.4 103/ul Normal 1.2-3.8 [facility] Comment on above: Performed By: #### C BC #### [facility] [address] [place] [address] Dr. Deisi Bush Lymphocytes/100 WBC (Bld) 46.5 % Normal 20.5-60.0 [facility] Comment on above: Performed By: #### C BC #### [facility] [address] [place] [address] Dr. Deisi Bush MANUAL DIFF REQ NO Normal [facility] Comment on above: Performed By: #### C BC #### [facility] [address] [place] [address] Dr. Deisi Bush MCH (RBC) [Entitic mass] 30.5 pg Normal 25.9-34.0 [facility] Comment on above: Performed By: #### C BC #### [facility] [address] [place] [address] Dr. Deisi Bsuh MCHC (RBC) [Mass/Vol] 33.3 g/dL Normal 29.9-35.2 [facility] Comment on above: Performed By: #### C BC #### [facility] [address] [place] [address] Dr. Deisi Bush MCV (RBC) [Entitic vol] 91.4 fL Normal 80.0-94.0 [facility] Comment on above: Performed By: #### C BC #### [facility] [address] [address] [address] Deisi Bush MONO # 0.6 103/ul Normal 0.3-0.8 [facility] Comment on above: Performed By: #### C BC #### [facility] [address] [place] [address] Dr. Deisi Bush Monocytes/100 WBC (Bld) 10.6 % Normal 1.7-12.0 [facility] Comment on above: Performed By: #### C BC #### [facility] [address] [place] [address] Dr. Deisi Bush NEUT # 1.7 103/ul Normal 1.4-6.5 [facility] Comment on above: Performed By: #### C BC #### [facility] [address] [place] [address] Dr. Deisi Bush Neutrophils/100 WBC (Bld) 31.9 % Critically low 43.0-75.0 [facility] Comment on above: Performed By: #### C BC #### [facility] [address] [place] [address] Dr. Deisi Bush Platelet mean volume (Bld) [Entitic vol] 9.2 fL Critically low 9.5-13.5 [facility] Comment on above: Performed By: #### C BC #### [facility] [address] [place] [address] Dr. Deisi Bush PLT 219 103/ul Normal 150-450 [facility] Comment on above: Performed By: #### C BC #### [facility] [address] [place] [address] Dr. Deisi Bush RBC 4.63 106/ul Critically low 4.70-6.10 [facility] Comment on above: Performed By: #### C BC #### [facility] [address] [place] [address] Dr. Deisi Bush WBC 5.2 103/ul Normal 4.0-11.0 [facility] Comment on above: Performed By: #### C BC #### [facility] [address] [place] [address] Dr. Deisi Bush LIPID PROFILEon 03-04-2022 CHOL-HDL RATIO NORM SEE BELOW Normal [facility] Comment on above: Result Comment: 3.3 - 4.4 LOW RISK 4.4 - 7.1 AVERAGE RISK 7.1 - 11.0 MODERATE RISK >11.0 HIGH RISK Performed By: #### T SH, LIPID, CMP #### [facility] [address] [address] [address] Deisi Bush Cholesterol [Mass/Vol] 125 mg/dL Normal <=200 [facility] Comment on above: Performed By: #### T SH, LIPID, CMP #### [facility] [address] [address] [address] Deisi Bush Cholesterol in HDL [Mass/Vol] 37 mg/dL Critically low 40-60 [facility] Comment on above: Performed By: #### T SH, LIPID, CMP #### [facility] [address] [address] [address] Deisi Bush Cholesterol in LDL [Mass/Vol] 75.6 mg/dL Normal [facility] Comment on above: Performed By: #### T SH, LIPID, CMP #### [facility] [address] [address] [address] Deisi Bush Cholesterol.total /Cholesterol in HDL [Mass ratio] 3.4 {ratio} Normal [facility] Comment on above: Performed By: #### T SH, LIPID, CMP #### [facility] [address] [address] [address] Deisi Bush HDL NORMAL > or = 60 mg/dl - LO W CARDIOVASCULAR RISK <40 mg/dl - HIGH CARDIOVASCULAR RISK Normal [facility] Comment on above: Performed By: #### T SH, LIPID, CMP #### [facility] [address] [address] [address] Deisi Bush LDL CALC NORMAL SEE BELOW Normal [facility] Comment on above: Result Comment: <100 mg/dl OPTIMAL 100 - 129 mg/dl NEAR OR ABOVE OPTIMAL 130 - 159 mg/dl BORDERLINE HIGH 160 - 189 mg/dl HIGH >190 mg/dl VERY HIGH Performed By: #### T SH, LIPID, CMP #### [facility] [address] [place] [address] Dr. Deisi Bush Triglyceride [Mass/Vol] 62 mg/dL Normal <=150 [facility] Comment on above: Performed By: #### T SH, LIPID, CMP #### [facility] [address] [place] [address] Dr. Deisi Bush VLDL CALC 12.4 mg/dL Normal [facility] Comment on above: Performed By: #### T SH, LIPID, CMP #### [facility] [address] [address] [address] Deisi Bush PROF 14(COMP METB)on 022 Albumin [Mass/Vol] 3.4 g/dL Normal 3.4-5.0 [facility] Comment on above: Performed By: #### T SERGIO, LIPID, CMP #### [facility] [address] [place] [address] Dr. Deisi Bush Albumin/Globulin [Mass ratio] 0.9 {ratio} Normal [facility] Comment on above: Performed By: #### T SH, LIPID, CMP #### [facility] [address] [place] [address] Dr. Deisi Bush ALP [Catalytic activity/Vol] 73 U/L Normal 46-116 [facility] Comment on above: Performed By: #### T SERGIO, LIPID, CMP #### [facility] [address] [place] [address] Dr. Deisi Bush ALT [Catalytic activity/Vol] 27 U/L Normal 16-63 [facility] Comment on above: Performed By: #### T SH, LIPID, CMP #### [facility] [address] [place] [address] Dr. Deisi Bush Anion gap [Moles/Vol] 11.6 mmol/L Normal [facility] Comment on above: Performed By: #### T SH, LIPID, CMP #### [facility] [address] [place] [address] Dr. Deisi Bush AST [Catalytic activity/Vol] 22 U/L Normal 15-37 [facility] Comment on above: Performed By: #### T SH, LIPID, CMP #### [facility] [address] [address] [address] Deisi Bush Bilirubin [Mass/Vol] 1.1 mg/dL Critically high 0.2-1.0 [facility] Comment on above: Performed By: #### T SH, LIPID, CMP #### [facility] [address] [place] [address] Dr. Deisi Bush Calcium [Mass/Vol] 8.7 mg/dL Normal 8.5-10.1 [facility] Comment on above: Performed By: #### T SH, LIPID, CMP #### [facility] [address] [place] [address] Dr. Deisi Bush Chloride [Moles/Vol] 105 mmol/L Normal 98-107 [facility] Comment on above: Performed By: #### T SH, LIPID, CMP #### [facility] [address] [place] [address] Dr. Deisi Bush CO2 [Moles/Vol] 27.6 mmol/L Normal 21.0-32.0 [facility] Comment on above: Performed By: #### T SH, LIPID, CMP #### [facility] [address] [place] [address] Dr. Deisi Bush Creatinine [Mass/Vol] 0.90 mg/dL Normal 0.70-1.30 [facility] Comment on above: Performed By: #### T SH, LIPID, CMP #### [facility] [address] [place] [address] Dr. Deisi Bush EGFR-AF CHADIAN >60 Normal >=60 [facility] Comment on above: Performed By: #### T SH, LIPID, CMP #### [facility] [address] [place] [address] Dr. Deisi Bush EGFR-NON AF CHADIAN >60 Normal >=60 [facility] Comment on above: Performed By: #### T SH, LIPID, CMP #### [facility] [address] [place] [address] Dr. Deisi Bush Globulin (S) [Mass/Vol] 3.6 g/dL Normal [facility] Comment on above: Performed By: #### T SH, LIPID, CMP #### [facility] [address] [address] [address] Deisi Bush Glucose [Mass/Vol] 96 mg/dL Normal 74-106 [facility] Comment on above: Performed By: #### T SH, LIPID, CMP #### [facility] [address] [place] [address] Dr. Deisi Bush Potassium [Moles/Vol] 4.2 mmol/L Normal 3.5-5.1 [facility] Comment on above: Performed By: #### T SH, LIPID, CMP #### [facility] [address] [place] [address] Dr. Deisi Bush Protein [Mass/Vol] 7.0 g/dL Normal 6.4-8.2 [facility] Comment on above: Performed By: #### T SH, LIPID, CMP #### [facility] [address] [place] [address] Dr. Deisi Bush Sodium [Moles/Vol] 140 mmol/L Normal 136-145 [facility] Comment on above: Performed By: #### T SH, LIPID, CMP #### [facility] [address] [place] [address] Dr. Deisi Bush Urea nitrogen [Mass/Vol] 16.0 mg/dL Normal 7.0-18.0 [facility] Comment on above: Performed By: #### T SH, LIPID, CMP #### [facility] [address] [place] [address] Dr. Deisi Bush Urea nitrogen/Creatini ne [Mass ratio] 17.8 mg/mg Normal [facility] Comment on above: Performed By: #### T SH, LIPID, CMP #### [facility] [address] [place] [address] Dr. Deisi Bush TSHon 03-04-2022 TSH 1.259 uIU/mL Normal 0.358-3.740 [facility] Comment on above: Performed By: #### T SH, LIPID, CMP #### [facility] [address] [place] [address] Dr. Deisi Bush TSH RANGE SEE BELOW Normal [facility] Comment on above: Result Comment: <0.3 4 UIU/ml HYPERTHYROID 0.34-5.60 UIU/ml EUTHYROID >5.60 UIU/ml HYPOTHYROID Performed By: #### T SH, LIPID, CMP #### [facility] [address] [place], [place] [address] Dr. Deisi Bush Lipid Panelon 09-21-2021 Cholesterol [Mass/Vol] 181 mg/dL Normal 125-200 [facility] Comment on above: Result Comment: Low risk < 200mg/dL Borderline risk 201-239 mg/dl High risk > or equal to 240 Performed By: #### L IPD #### [facility] [address], [place] [id number] Cholesterol in HDL [Mass/Vol] 41 mg/dL Normal >40 [facility] Comment on above: Result Comment: High Cardiovascular Risk HDL <40 mg/dL Low Cardiovascular Risk HDL > or equal to 60 mg/dl Performed By: #### L IPD #### [facility] [address] [id number] Cholesterol in LDL [Mass/Vol] 126 mg/dL Normal [facility] Comment on above: Result Comment: LDL ATP III CLASSIFICATION LDL less than 100 mg/dl Optimal LDL 100-129 mg/dl Near or above optimal LDL 130-159 Borderline high LDL 160-189 High LDL greater than 189 mg/dl Very High Performed By: #### L IPD #### [facility] [address], [place] [id number] Cholesterol in VLDL [Mass/Vol] 14 mg/dL Normal [facility] Comment on above: Performed By: #### L IPD #### [facility] [address] [id number] Cholesterol.total /Cholesterol in HDL [Mass ratio] 4 {ratio} Normal [facility] Comment on above: Performed By: #### L IPD #### [facility] [address] [place], [place] [id number] Triglyceride [Mass/Vol] 72 mg/dL Normal 30-150 [facility] Comment on above: Result Comment: TRIG ATPIII CLASSIFICATIONS TRIG less than 150 mg/dl Normal TRIG 150-199 mg/dl Borderline High TRIG 200-500 mg/dl High TRIG greather than 500 mg/dl Very High Performed By: #### L IPD #### [facility] [address] [place], [place] [id number] PSA SCREEN (MEDICARE)on 08-25 TPSA 3.110 ng/mL Normal <4.000 [facility] High Risk Case Manager Comment on above: Result Comment: PSA Test Method: ECLIA/Saw e 601 Performed By: #### P SA MC #### [facility] [address], [place] [id number] Vital Signs Date Time Vital Sign Value Performing Clinician Faci lity 05-29-2023 09:10-0400 Diastolic blood pressure 67 mm[Hg] II Martir Herbert Work Phone: [facility] 05-29-2023 09:10-0400 Heart rate 51 /min II Martir Herbert Work Phone: [facility] 05-29-2023 09:10-0400 Respiratory rate 16 /min II Martir Herbert Work Phone: [facility] 05-29-2023 09:10-0400 SaO2% (BldA) [Mass fraction] 96 % II Martir Herbert Work Phone: [facility] 05-29-2023 09:10-0400 Systolic blood pressure 131 mm[Hg] II Martir Herbert Work Phone: [facility] 05-29-2023 07:30-0400 Body height 175.26 cm II Martir Herbert Work Phone: [facility] 05-29-2023 07:30-0400 Body temperature 98 [degF] II Martir Herbert Work Phone: [facility] 05-29-2023 07:30-0400 Body weight 81.64 kg II Martir Herbert Work Phone: [facility] 02-05-2023 08:47-0400 Diastolic blood pressure 80 mm[Hg] Abran OCHOA [facility] 02-05-2023 08:47-0400 Mean blood pressure 103 mm[Hg] Abran OCHOA [facility] [facility] 02-05-2023 08:47-0400 Systolic blood pressure 150 mm[Hg] Abran OCHOA [facility] 02-05-2023 08:42-0400 Blood Pressure Location Abran OCHOA [facility] 02-05-2023 08:42-0400 Diastolic blood pressure 80 mm[Hg] Abran OCHOA [facility] 02-05-2023 08:42-0400 Heart rate 53 /min Abran OCHOA [facility] 02-05-2023 08:42-0400 Systolic blood pressure 154 mm[Hg] Abran OCHOA [facility] 12-19-2022 06:51-0400 Body height 177.8 cm II Martir Herbert Work Phone: [facility] 12-19-2022 06:51-0400 Body weight 81.64 kg II Martir Herbert Work Phone: [facility] 12-04-2022 12:26-0400 Blood Pressure Location Abran OCHOA [facility] 12-04-2022 12:26-0400 Diastolic blood pressure 70 mm[Hg] Abran OCHOA [facility] 12-04-2022 12:26-0400 Heart rate 64 /min Abran OCHOA [facility] 12-04-2022 12:26-0400 Systolic blood pressure 149 mm[Hg] Abran OCHOA [facility] [place] Encounters Encounter Date Encounter Type Care Provider Facility Start: 10-03-2023 End: 10-03-2023 ambulatory MARTIR HERBERT II Facility:[facility] Start: 09-21-2023 End: 09-22-2023 ambulatory Abran Phong OCHOA Facility:[facility] Start: 09-21-2023 End: 09-21-2023 Patient encounter procedure Abranvalentin OCOHA [facility] Start: 09-19-2023 End: 09-19-2023 ambulatory MARTIR HERBERT II Facility:[facility] Start: 09-12-2023 End: 09-13-2023 ambulatory Abran Phong OCHOA Facility:[facility] Start: 09-12-2023 End: 09-12-2023 Patient encounter procedure Abranvalentin OCHOA [facility] Start: 09-06-2023 End: 09-07-2023 ambulatory Abranvalentin OCHOA Facility:[id number] Start: 09-06-2023 End: 09-06-2023 Patient encounter procedure Jc Mendiola MD Work Phone: Radiation Oncology Comment on above: Malignant neoplasm o f prostate (HCC) (Primary Dx) Start: 08-08-2023 ambulatory Abran OCHOA [facility] Start: 07-25-2023 Patient encounter procedure Ccf Provider [facility] Start: 07-24-2023 Telephone encounter Jc Mendiola MD Work Phone: Radiation Oncology Comment on above: Appointment Start: 07-11-2023 Patient encounter procedure Jc Mendiola MD Work Phone: [facility] Start: 07-11-2023 Radiation Oncology Note Jc Mendiola MD Work Phone: Radiation Oncology Comment on above: Simulation Note Start: 07-11-2023 End: 07-11-2023 ambulatory MARTIR HERBERT II Facility:[facility] Start: 05-29-2023 End: 05-29-2023 ambulatory Imad Asaad Facility:[facility] Start: 05-29-2023 End: 05-29-2023 Admission to same day surgery center II Martir Herbert Work Phone: [facility] Work Phone: Start: 05-29-2023 End: 05-29-2023 ambulatory II Martir Herbert Work Phone: [facility] Work Phone: Start: 05-23-2023 Patient encounter procedure Ccf Provider [facility] Start: 05-02-2023 Telephone encounter G Chirag Mendiola MD Work Phone: Radiation Oncology Comment on above: Constipation; Rectal Bleeding; Future Appointment Start: 02-21-2023 Patient encounter procedure Ccf Provider [facility] Start: 02-16-2023 End: 02-16-2023 ambulatory MARTIR HERBERT II Facility:[facility] Start: 02-05-2023 End: 02-06-2023 ambulatory Abran OCHOA Facility:[facility] Start: 02-05-2023 End: 02-05-2023 Patient encounter procedure Abran OCHOA [facility] Start: 01-16-2023 End: 01-17-2023 ambulatory Abran OCHOA Facility:[facility] Start: 01-16-2023 End: 01-16-2023 Patient encounter procedure Abran OCHOA [facility] Start: 12-19-2022 End: 12-19-2022 ambulatory Abran Ochoa Facility:[facility] Start: 12-19-2022 End: 12-19-2022 ambulatory II Martir Herbert Work Phone: [facility] Work Phone: Start: 12-19-2022 End: 12-19-2022 Patient encounter procedure II Martir Keon Work Phone: [facility] [place] Work Phone: Start: 12-04-2022 End: 12-05-2022 ambulatory Abran OCHOA Facility: [place] Start: 12-04-2022 End: 12-04-2022 Patient encounter procedure Abran OCHOA [facility] Start: 10-17-2022 End: 10-18-[address] ABRAN OCHOA Facility:[facility] Start: 09-22-2022 End: 09-22-2022 Patient encounter procedure Abran OCHOA [facility] Start: 03-04-2022 End: 03-05-[address] MARTIR HERBERT Facility:[facility] Procedures Date Procedure Procedure Detail Performing Clinician Start: 05-29-2023 Screening colonoscopy I I Martir Herbert Work Phone: Start: 12-27-2022 Transrectal biopsy o f prostate using ultrasound guidance Abran OCHOA Start: 12-19-2022 MR prostate wo/w con II Martir Herbert Work Phone: Start: 05-12-2015 Transrectal biopsy o f prostate using ultrasound guidance Abran OCHOA Start: 12-29-2014 Transrectal biopsy o f prostate using ultrasound guidance Abran OCHOA Start: 10-03-2013 Cystoscopy Abran DOMINGUEZ Comment on above: Lt stent removal Start: 09-23-2013 Cystoscopy Abran DOMINGUEZ Comment on above: Lt RG, Lt ureterosco py w/holmium laser, Lt ureteroscopic stone basket. 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 Start: 12-07-2023 ambulatory Ambulatory Facility:[facility] [place] Start: 10-08-2023 ambulatory Ambulatory Facility:[facility] Start: 05-29-2023 [facility] Start: 05-25-2023 Covid-19 Vaccine ( season) Covid-19 Vaccine ( season) [facility] Start: 05-25-2023 Influenza vaccination [facility] Start: 12-11-2022 COVID-19 VACCINE (5 - Pfizer series) COVID-19 VACCINE (5 - Pfizer series) [facility] Start: 09-24-2022 ADVANCE DIRECTIVE DISCUSSION ADVANCE DIRECTIVE DISCUSSION [facility] Start: 09-24-2022 DEPRESSION ASSESSMENT DEPRESSION ASS ESSMENT [facility] Start: 2006 PNEUMOCOCCAL: 65+ (1 - PCV) PNEUMOCOCCAL: 65+ (1 - PCV) [facility] Start: 2001 RSV Vaccine (1 - 1-d ose 60+ series) RSV Vaccine (1 - 1-dose 60+ series) [facility] Start: 11-24-1991 SHINGRIX VACCINE (1 of 2) LOPEZ GRIX VACCINE (1 of 2) [facility] Start: 1986 DIABETES SCREEN DIABETES SCREEN [facility] Start: 1986 Diabetes Screening Diabetes Screenin g [facility] Start: 1960 Urine microalbumin profile DTAP,TDAP,TD (1 - Tdap) [facility] Immunizations Immunization Date Immunization Notes Care Provider Alvin barker 08-13-2022 influenza virus vaccine, unspecified formulation Abran OCHOA [facility] 08-13-2022 SARS-CoV-2 (COVID-19 ) [id number] Abran OCHOA [facility] 12-18-2021 zoster vaccine recombinant Abran OCHOA [facility] 09-21-2021 zoster vaccine recombinant Abran OCHOA [facility] 09-19-2021 tetanus toxoid, redu lester diphtheria toxoid, and acellular pertussis vaccine, adsorbed Abran OCHOA [facility] 08-25-2021 influenza virus vaccine, unspecified formulation Abran OCHOA [facility] 06-25-2021 influenza virus vaccine, unspecified formulation Abran OCHOA [facility] 06-25-2021 SARS-CoV-2 (COVID-19 ) mRNA BNT-162b2 vax Abran OCHOA [facility] Comment on above: Result Comment: 2022: [id number] 11-14-2020 SARS-CoV-2 (COVID-19 ) mRNA BNT-162b2 vax Abran OCHOA [facility] Comment on above: Result Comment: 2022: [id number] 10-24-2020 SARS-CoV-2 (COVID-19 ) mRNA BNT-162b2 vax Abran OCHOA [facility] Comment on above: Result Comment: 2022: [id number] 06-28-2020 influenza virus vaccine, unspecified formulation EPV SOLAR [facility] 07-02-2019 influenza virus vaccine, unspecified formulation EPV SOLAR [facility] 07-02-2019 pneumococcal conjuga te vaccine, 13 valent Abran [employer] [facility] 06-29-2018 influenza virus vaccine, unspecified formulation EPV SOLAR [facility] 06-21-2017 influenza virus vaccine, unspecified formulation EPV SOLAR [facility] 08-18-2015 influenza virus vaccine, unspecified formulation EPV SOLAR [facility] 06-23-2014 influenza virus vaccine, unspecified formulation EPV SOLAR [facility] 07-01-2013 influenza virus vaccine, unspecified formulation EPV SOLAR [facility] 07-01-2013 zoster vaccine, live Abranvalentin OCHOA [facility] Payers Date Payer Category Payer Self-pay 2022 Private Health Insurance [facility] [employer] [id number] 2022-Present [phone] [address] [place] [address] Indemnity [id number] 2006 Medicare [id number] 1959 Medicare [id number] 1959 Private Health Insurance [id number] 1941 Unknown [id number] [id number]. 2.593 1941 Unknown [id number] 2.16.840.1.855406.3.579. 2.593 1941 Unknown [id number] 2.16.840.1.902591.3.579. 2.727 1941 Unknown [id number] 2.16.840.1.927624.3.579. 2.727 1941 Unknown [id number] 2.16.840.1.310990.3.579. 2.727 1941 Unknown [id number] 2.16.840.1.731925.3.579. 2.727 1941 Unknown [id number] 2.16.840.1.813371.3.579. 2.727 1941 Unknown [id number] 2.16.840.1.676289.3.579. 2.727 1941 Unknown [id number] 2.16.840.1.318934.3.579. 2.727 1941 Unknown [id number] 2.16.840.1.458977.3.579. 2.727 1941 Unknown [id number] 2.16.840.1.106667.3.579. 2.727 Unknown Insurance No Card [id number] Unknown [id number] 2.16.840.1.515483.3.579. 2.531 Unknown [id number] [id number]. 2.531 Social History Date Type Detail Facility Start: 09-01-2020 End: 02-05-2023 Tobacco smoking status Never smoked tobacco (finding) [facility] Tobacco smoking status Never Zoe [facility] Start: 02-16-2023 End: 09-06-2023 Sex Assigned At Male [facility] Start: 1940 Sex Assigned At Male [facility] Start: 02-16-2023 Tobacco use and exposure Smokeless tobacco non-user [facility] Start: 02-16-2023 Alcohol intake Ex-drinker (finding) [facility] Start: 1940 Sex Assigned At Not on file [facility] Start: 02-16-2023 End: 09-06-[address] [facility] Goals Date Patient Goal Desired Activity /State Functional Status Date Assessment Result Facility 02-05-2023 Functional Status N/A [facility] 12-04-2022 Functional Status N/A [facility] Clinical Notes 02-23-2022 to 09-19-2023 Jc Mendiola MD - 09/06/2023 3:06 PM ESTTelephone Encounter - Debra Quinn LPN - 07/25/2023 11:26 AM EDTTelephone Encounter - Debra Quinn LPN - 07/24/2023 9:54 AM EDT Note Date & Type Note Facility 09-19-2023 Note HNO ID: [id number] Author: Jc Mendiola MD Service: ? 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 RADIATION SUMMARY: Prostate brachytherapy 09/06/2023: I-125, 145 [address]offey, 61 sources, 23.67 millicurie. INTERVAL HISTORY: The patient presents for routine follow-up after recent prostate brachytherapy. Patient did develop obstructive uropathy had catheter replaced. Still with indwelling catheter. Denies bleeding. Denies pain or fever. No bowel related changes or issues. PSA HISTORY: No results found for: PSA , PSAPER ALLERGIES Allergen Reactions Penicillins Rash Sulfa (Sulfonamide [...] daily. OTC PRODUCT Eye and vision supplement REVIEW OF SYSTEMS: D/N = N/A Hematuria: No Dysuria: No Catheter use: Yes Medications to aid urination: y Bowel movement frequency: 1/day Bowel movement quality: normal Androgen deprivation: Never. PHYSICAL EXAM: BP 153/83 Pulse 64 Temp 36.3 ?C (97.3 ?F) Resp 16 Wt 89.4 kg (197 lb 1.5 oz) SpO2 97% BMI 29.11 kg/m? KPS: 100 General Appearance: Alert and oriented. No acute distress. Rectal exam is deferred. Perineal area without ecchymosis, tenderness or seroma. 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 Status post prostate brachytherapy implant 09/06/2023. Patient overall doing fairly well though with obstructive issues requiring catheter. No other new problems. Plan to have patient back in 2 weeks for post-implant CT, return for follow-up exam in 4 weeks. He continues close follow-up with Dr. Ochoa. Signed by: Jc Mendiola MD cc: Martir Herbert II, MD [address] [place] [address] No referring provider defined for this encounter. [facility] 09-06-2023 Note HNO ID: [id number] Author: Jc Mendiola MD Service: ? Author Type: Physician Type: Progress Notes Filed: 09/06/2023 3:18 PM Note Text: Date: 09/06/23 Facility: [facility] Procedure: prostate transperineal brachytherapy implant Diagnosis: [...] activity seen, results documented. Edilma Mendiola MD [facility] 09-06-2023 History of Present illness Narrative Date: 09/06/23 Facility: [facility] Procedure: prostate transperineal brachytherapy implant Diagnosis: [...] activity seen, results documented. Edilma Mendiola MD [facility] documented in this encounter [facility] 08-25-2023 Note HNO ID: [id number] Author: Jc Mendiola MD Service: ? Author Type: Physician Type: Progress Notes Filed: 09/06/2023 12:36 AM Note Text: JOSE CAN [id number] 08/25/2023 [facility] Department of Radiation Oncology [facility] RADIATION ONCOLOGY BRACHYTHERAPY TREATMENT PLANNING NOTE For [...] Chirag Mendiola M.D. / NATY 33:42 PM [facility] 07-25-2023 Miscellaneous Notes Enriqueta, pt's dtr, returned my call and I notified her that a new schedule has been mailed to [place] for his upcoming prostate seed implant and follow ups. Debra Quinn RN Christina with Dr. 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 Reno now needs to cardiac clearance and the first available appointment with Dr. Payne isn't until 08/06/23. Brachytherapy appointment rescheduled from 08/02/23 to 09/06/23. I left a message for [place] to call me back to notify him that we will him an updated schedule. Debra Quinn RN documented in this encounter [facility] 07-12-2023 Note HNO ID: [id number] Author: Jc Mendiola MD Service: ? Author [...] Visit completed when applicable. Jc Mendiola MD [facility] 07-11-2023 Note HNO ID: [id number] Author: Jc Mendiola MD Service: ? Author Type: Physician Type: Progress Notes Filed: 07/12/2023 12:35 AM Note Text: JOSE CAN [id number] 07/11/2023 [facility] of Radiation Oncology [facility] RADIATION ONCOLOGY SIMULATION NOTE DATE OF SIMULATION: [...] 3D space. These images were imported into [employer] Prostate planning system where a plan was generated. ASSESSMENT/PLAN: Patient tolerated simulation procedure well. Electronically Signed Chirag Mendiola M.D. / NATY :19 PM [facility] 07-11-2023 History of Present illness Narrative JOSE CAN [id number] 07/11/2023 [facility] of Radiation Oncology [facility] RADIATION ONCOLOGY SIMULATION NOTE DATE OF SIMULATION: [...] 3D space. These images were imported into [employer] Prostate planning system where a plan was generated. ASSESSMENT/PLAN: Patient tolerated simulation procedure well. Electronically Signed Chirag Mendiola M.D. / NATY :19 PM documented in this encounter [facility] 05-29-2023 Procedure note [facility] 05-03-2023 Miscellaneous Notes Patients daughter called back [...] colonoscopy was done per Dr Franco at [facility] in 2016. It was normal. Dr Mendiola-- please advise. Nichelle Elkins RN documented in this encounter [facility] 02-16-2023 Note HNO ID: [id number] Author: Jc Mendiola MD Service: ? Author Type: Physician Type: Progress Notes Filed: 02/16/2023 10:23 AM Note Text: Radiation Oncology - Prostate Cancer New Patient/Consult Note PATIENT NAME: Jose Can PATIENT REQUESTING PROVIDER: Dr. 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 [facility] 02-05-2023 Hospital Discharge instructions Patient Education 02/05/2023 [...] under a microscope. This is called the Barrington score and the total score can range from 6 10, indicating how likely it is that the cancer will spread (metastasize) to other parts of the body. The higher the score, the greater the likelihood that the cancer will spread. Alpa 6 or lower: This indicates that the cancer cells look similar to normal prostate cells (well differentiated). Barrington 7: This indicates that the cancer cells look somewhat similar to normal prostate cells (moderately differentiated). Alpa 8, 9, or 10: This indicates [...] stress of having cancer. General instructions Take plpk-xjv-ggfoohu and prescription medicines only as told by your health care provider. If you have to go to the hospital, notify your cancer specialist (oncologist). Keep all follow-up visits. This is important. Where to find more information [place] [employer]: www.cancer.org [place] [employer] of Clinical Oncology: www.cancer.net National Cancer Lap[employer]: www.cancer.gov Contact a health care provider if: [...] provider. Document Revised: 12/07/2021 Document Reviewed: 12/07/2021 [employer] Patient Education 2022 [employer]. Follow Up Care 01/04/2023 12:26:51 With:LADAN EDWARDS, Abran Darling, URL Address: [facility] [address] [place] [address]- [phone] When:Within 6 Month(s) Comments:Will refer to Dr. Mendiola [facility] 01-16-2023 Note [id number]:127 [facility] 01-16-2023 Hospital Discharge instructions Patient Education 01/16/2023 [...] for your post-operative appointment in 1-2 weeks [phone] or [phone] Follow Up Care 01/04/2023 11:45:40 With:Abran OCHOA Address: [facility] [address] , [place] [address]- [facility] (1) When: Unknown Comments:Keep scheduled appointment [facility] 12-04-2022 Hospital Discharge instructions Patient Education 12/04/2022 [...] urethra. Follow these instructions at home: Take fmpp-fds-plyauco and prescription medicines only as told by [...] 09/10/2006 Document Revised: 08/05/2019 Document Reviewed: 10/15/2017 [employer] Patient Education [employer]. Follow Up Care 09/22/2022 08:10:59 With:Abran OCHOA MD, URL Address: [facility] [address] [place] [address]- When: Unknown [facility] 02-23-2022 Hospital Discharge instructions Follow Up Care 02/23/2022 13:31:33 With:Abran OCHOA MD, URL Address: [address] [place] [address]- When: Unknown [facility] Evaluation + Plan note Future Appointments Appointment Date:12/04/2022 12:15:00 PM Scheduled Provider:Abran OCHOA MD Location:[facility] Appointment Type:URO Office Visit [facility] Evaluation + Plan note Future Appointments Appointment Date:12/07/2023 08:00:00 AM Scheduled Provider:Abran OCHOA MD Location:[facility] Appointment Type:URO Office Visit [facility] Evaluation + Plan note Future Appointments Appointment Date:02/05/2023 08:30:00 AM Scheduled Provider:Abran [facility]A MD [facility] Type[facility]O Office Visit Appointment Date:12/07/2023 08:00:00 AM Scheduled Provider:Abran OCHOA MD [facility] Appoint[facility] Type:URO Office Visit Diagnostic Tests PendingProstate Histology ([facility]) 01/16/23 [facility] Evaluation + Plan note Future Appointments Appointment Date:12/07/2023 08:00:00 AM Scheduled Provider:Abran OCHOA MD [facility] Appointment Type:URO Office Visit Diagnostic Tests PendingPSA Total 02/05/23 [facility] Evaluation + Plan note Future Appointments Appointment Date:10/08/2023 09:30:00 AM Scheduled Provider:Abran OCHOA MD [facility] App[facility] Type:URO Office Visit Appointment Date:12/07/2023 08:00:00 AM Scheduled Provider:Abran OCHOA MD [facility] App[facility] Type:URO Office Visit [facility] Evaluation note No assessment inform ation available [facility] Work Phone: Evaluation note Diagnosis Rectal bleeding- Primary Hemorrhage of rectum and anus Constipation, unspecified constipation type Prostate cancer (HCC) Malignant neoplasm of prostate [facility] Malignant neoplasm of prostate (HCC)- Primary Malignant neoplasm of prostate [facility] Author Juan Jiang [facility] May 29, 2023 8:21am Note Date/Time May 29, 2023 8:21am [facility] [address] [place] [address] Gastroenterology H&P Signed Patient: Jose Can MR#: [id number] : 1940 Acct:[id number] Age/Sex: 82 / M Adm Date: 3 Loc: Room: Type: [facility] Attending Dr: Juan Jiang MD Copies [...] <Electronically signed by Juan Jiang MD> 05/29/23820 [facility] Work Phone: Hospital course Narrative No data available for this section [facility] Hospital Discharge instructions Additional Instructions DISCHARGE INSTRUCTIONS [...] years. -Follow up with PCP. -Office number [phone]. [facility] Work Phone: Hospital Discharge instructions No data available for this section [facility] progress note No data available for this section [facility] reason for referral (narrative) , Refer to Dr. Mendiola for [employer] Referred by: Abran OCHOA MD [facility] Summary Purpose Family History No Family History Records FoundNo Family History Records FoundNo Family History Records Found No data available for this section No data available for this section No Family History Records FoundNo Family History Records Found Advance Directives No Advanced Directives Records Found Advance Directive Response Recorded Date/ Time Advance Directives No December 06, 2 023 8:46am Chief Complaint and Reason for Visit Chief Complaint N40.2 Chief Complaint Screening Additional Source Comments (unrecognized sect ion and content) No Status Records FoundNo Status Records FoundNo Status Records FoundNo Status Records FoundNo Status Records Found INFORMATION SOURCE (unrecogn ized section and content) DATE CREATED AUTHOR 09/22/2021 [facility] dical Specialist DATE CREATED AUTHOR AUTHOR'S ORGANIZ ATION 10/18/2022 [facility] DATE CREATED AUTHOR AUTHOR'S ORGANIZ ATION 06/05/2023 [facility] DATE CREATED AUTHOR AUTHOR'S ORGANIZ ATION 09/22/2023 [facility] DATE CREATED AUTHOR AUTHOR'S ORGANIZ ATION 10/04/2023 [facility] Patient Care team informatio n (unrecognized section and content) Team Status: Active Member Role Status Dates Martir Herbert II MD Primary Care Provider Active Team Status: Inactive Member Role Status Dates Martir Herbert II MD Primary Care Provider Active Abran Ochoa MD Attending Provider Active Wastewater Treatment Engineer Relationship Specialty Start Date End Date Martir Herbert II [address] [facility] [address] [place] [address] PCP - General Internal Medicine 02/06/23 Wastewater Treatment Engineer Relationship Specialty Start Date End Date Martir Herbert II, MD [address] [facility] [address] [place] [address] PCP - General Internal Medicine 02/06/23 Team Status: Inactive Member Role Status Dates Martir Herbert II MD Primary Care Provider Active Juan Jiang MD Attending Provider Active Wastewater Treatment Engineer Relationship Specialty Start Date End Date Martir Herbert II, MD [address] [facility] [address] [place] [address] PCP - General Internal Medicine 02/06/23 Wastewater Treatment Engineer Relationship Specialty Start Date End Date Martir Herbert II, MD [address] [facility] [address] [place] [address] PCP - General Internal Medicine 02/06/23 Wastewater Treatment Engineer Relationship Specialty Start Date End Date Martir Herbert II, MD [address] [facility] [address] [place] [address] PCP - General Internal Medicine 02/06/23 Wastewater Treatment Engineer Relationship Specialty Start Date End Date Martir Herbert II, MD [address] [facility] [address] [place] [address] PCP - General Internal Medicine 02/06/23 Goals [...] or prosecute any alcohol or drug abuse patient.[facility] the event this information is protected by the Federal Confidentiality of Alcohol and Drug Abuse Patient Records regulations: The Federal rules restrict any use of the information to criminally investigate or prosecute any alcohol or drug abuse patient.[facility] the event this information is protected by the Federal Confidentiality of Alcohol and Drug Abuse Patient Records regulations: The Federal rules restrict any use of the information to criminally investigate or prosecute any alcohol or drug abuse patient.[facility] the event this information is protected by the Federal Confidentiality of Alcohol and Drug Abuse Patient Records regulations: The Federal rules restrict any use of the information to criminally investigate or prosecute any alcohol or drug abuse patient.[facility] Hospital[facility] the event this information is protected by the Federal Confidentiality of Alcohol and Drug Abuse Patient Records regulations: The Federal rules restrict any use of the information to criminally investigate or prosecute any alcohol or drug abuse patient.[facility] the event this information is protected by the Federal Confidentiality of Alcohol and Drug Abuse Patient Records regulations: The Federal rules restrict any use of the information to criminally investigate or prosecute any alcohol or drug abuse patient.[facility] Hospital[facility] the event this information is protected by the Federal Confidentiality of Alcohol and Drug Abuse Patient Records regulations: The Federal rules restrict any use of the information to criminally investigate or prosecute any alcohol or drug abuse patient.[facility] Reason for Visit (unrecogniz ed section [...] BE BASED ON THE PRIMARY CLINICAL RECORDS. [employer] [facility]. provides no warranty or guarantee of the accuracy or completeness of information in this document.
[2023-10-08 10:18] LABS: Prostate Specific Antigen Dx 1.55 ng/mL (<=4.00)
== END 2023-10-08 08:40 | disposition home or self-care (01) ==
PROVIDERS: PCP Internal Medicine; Visit Provider Radiology Radiation Oncology
DX: C61 Malignant neoplasm of prostate (principal)
CPT/HCPCS: 36415; 84153

== ENCOUNTER 2023-11-22 09:41 | Outpatient (OUT) | payer MEDICARE, OTHER, SELFPAY ==
--- NOTE | 2023-11-22 10:00 | CA_ITS ---
Patient Name: YVONNE CAN MR#: [id number] : 1940 Exam Date: 11/22/2023 Ordering Doctor: DR TOSHIA WITT M.D. ECHOCARDIOGRAM REPORT PROCEDURE: CA ECHO DOPPLER COMPLETE INDICATIONS: Heart murmur, hypertension COMPARISON: None. DESCRIPTION: COMPLETE ECHOCARDIOGRAM Real-time transthoracic echocardiography with 2D, M-mode, spectral and color flow Doppler performed. QUALITY: Technical quality was good. 69 , 195#, BSA 2.04 m2 LEFT VENTRICLE: Normal chamber size. Proximal septal hypertrophy (sigmoid septum). LV EF: Global left ventricular systolic function is hyperdynamic; visually estimated ejection fraction is 65 to 70%. No obvious wall motion abnormalities. DIASTOLIC: Unable to assess diastolic dysfunction. ATRIAL SEPTUM: Visually appears intact. LEFT ATRIUM: Mild dilatation. RIGHT ATRIUM: Normal chamber size. RIGHT VENTRICLE: Normal chamber size. Normal right ventricular systolic function. TRICUSPID VALVE: Normal mobility and thickness. No stenosis with trivial regurgitation. Unable to assess right-sided pressures due to lack of measurable tricuspid regurgitation. MITRAL VALVE: Normal mobility and thickness. No evidence of mitral valve stenosis. There is no mitral annular calcification. Trivial mitral regurgitation. AORTIC VALVE: Normal trileaflet appearance. Severely calcified aortic valve with diminished mobility. Doppler velocity suggests moderate aortic valve stenosis. DVI 0.28, SHASHI 1.2 cm2. No aortic regurgitation. AORTIC ROOT: Normal diameter and appearance. PULMONIC VALVE: Normal thickness and mobility. No stenosis. Trivial regurgitation. PERICARDIUM: No evidence of pericardial effusion. IVC: Collapses with inspirations. IVC is normal in size. CONCLUSION: 1. Global left ventricular systolic function is hyperdynamic; visually estimated ejection fraction is 65 to 70% 2. Normal right ventricular size and systolic function 3. The left atrium is mildly dilated 4. Moderate aortic valve stenosis Adult Echocardiography Procedure Report Left Ventricle LVEDD (3.7 - 5.6 cm): 4.78 cm LVESD (2.2 - 4.0 cm): 2.94 cm LVIVS thickness (0.6 - 1.2 cm): 1.43 cm LVPW thickness (0.5 - 1.0 cm): 0.96 cm e': 0.07 m/s E - e': 9.04 LVOT Max Gradient: 2.26 mm[Hg] LVOT Area (cm2): 0.75 m/s Peak Velocity (LVOT): 0.75 m/s Mean Velocity (LVOT): 0.48 m/s LVOT Diameter 2.36 cm Left Atrium LA Volume Index (2D A2C): 38.05 ml/m2 Left Atrium Systolic Dimension: 4.25 cm Mitral Valve MV E to A Ratio: 0.98 Mitral Valve A-Wave Peak Velocity: 0.66 m/s Mitral Valve E-Wave Peak Velocity: 0.65 m/s Right Ventricle Aorta AO Root Diam: 3.65 cm Ascending Ao Diam: 2.46 cm Aortic Valve AoV Area (Peak Roberth): 1.23 cm2, 1.23 cm2 AoV Area (VTI): 1.23 cm2, 1.23 cm2 Peak Velocity(Antegrade Flow): 2.67 m/s Peak Gradient(Antegrade Flow): 28.57 mm[Hg] Mean Velocity(Antegrade Flow): 1.87 m/s Mean Gradient(Antegrade Flow): 15.89 mm[Hg] Velocity Time Integral: 70.58 cm Tricuspid Valve Pulmonic Valve Peak Velocity: 0.81 m/s Peak Gradient: 2.77 mm[Hg], 2.45 mm[Hg] Right Atrium Right Atrium Systolic Pressure: 37.38 ml, 37.38 ml Dictated by: Virgil Crockett M.D. on 11/22/2023 at 14:18 Approved by: Virgil Crockett M.D. on 11/22/2023 at 14:22
== END 2023-11-22 09:42 | disposition home or self-care (01) ==
LOC: CARD 09:42
PROVIDERS: PCP Internal Medicine; Visit Provider Internal Medicine
DX: R01.1 Cardiac murmur, unspecified (principal)
CPT/HCPCS: 93306

== ENCOUNTER 2023-12-11 13:47 | Outpatient (OUT) | payer MEDICARE, OTHER, SELFPAY ==
--- NOTE | 2023-12-11 13:54 | US_ITS ---
[address] [address] Patient Name: YVONNE CAN MRN: [id number] date: 1940 Sex: M Assigned Patient Location: [place] Current Patient Location: [place] Accession/Order Number: [id number] Exam Date: 12/11/2023 13:58 Report Date: 12/11/2023 15:42 At the request of: TOSHIA WITT Procedure: US carotid duplex BI EXAMINATION: US carotid duplex BI HISTORY: vision changes R42, H53.9, R53.1 COMPARISON: No relevant comparison available. TECHNIQUE: Duplex Doppler ultrasound analysis of carotid and vertebral arteries. . Bilateral carotid arterial duplex examination was performed using B-mode, color flow and spectral analysis. Carotid stenosis is reported according to validated velocity parameters, similar to NASCET criteria. FINDINGS: RIGHT CAROTID ARTERY Mild atherosclerotic plaque Subclavian: PSV: 126.0 cm/s cm/s EDV: 0.0 cm/s cm/s CCA: Prox: PSV: 98.4 cm/s cm/s EDV: 15.6 cm/s cm/s Mid: PSV: 110.2 cm/s cm/s EDV: 15.6 cm/s cm/s Distal: PSV: 102.3 cm/s cm/s EDV: 17.5 cm/s cm/s BULB: PSV: 54.2 cm/s cm/s EDV: 14.1 cm/s cm/s ICA: Prox: PSV: 84.0 cm/s cm/s EDV: 16.7 cm/s cm/s Mid: PSV: 89.8 cm/s cm/s EDV: 23.6 cm/s cm/s Distal: PSV: 97.9 cm/s cm/s EDV: 26.8 cm/s cm/s ECA: PSV: 184.9 cm/s cm/s EDV: 0.0 cm/s cm/s VERTEBRAL: PSV: 54.3 cm/s cm/s EDV: 12.3 cm/s cm/s, antegrade ICA/CCA ratio: PSV: 0.9 EDV: 1.7 LEFT CAROTID ARTERY mild atherosclerotic plaque Subclavian: PSV: 152.9 cm/s cm/s EDV: 0.0 cm/s CCA: Prox: PSV: 125.0 cm/s cm/s EDV: 24.8 cm/s Mid: PSV: 113.8 cm/s cm/s EDV: 22.0 cm/s Distal: PSV: 72.7 cm/s cm/s EDV: 9.7 cm/s BULB: PSV: 102.3 cm/s cm/s EDV: 11.6 cm/s ICA: Prox: PSV: 100.3 cm/s cm/s EDV: 25.4 cm/s Mid: PSV: 124.0 cm/s cm/s EDV: 33.3 cm/s Distal: PSV: 104.2 cm/s cm/s EDV: 31.3 cm/s ECA: PSV: 133.8 cm/s cm/s EDV: 0.0 cm/s VERTEBRAL: PSV: 46.0 cm/s cm/s EDV: 13.1 cm/s , antegrade ICA/CCA ratio: PSV: 1.0 EDV: 1.3 US/US carotid duplex BI IMPRESSION: 0-49% flow stenosis bilateral internal carotid arteries Spectral Doppler US Thresholds (Reference: Christoph EG, et al. Radiology 2000; 214:247-252) Stenosis (%) PSV (cm/sec) VICA/VCCA 0-49 <150 <2.5 50-69 150-225 2.5-4.0 >70 >225 >4.0 Electronically authenticated by: CHIRSTINE VALLES Date: 12/11/2023 15:42
--- OUTSIDE RECORDS SUMMARY | 2023-12-11 14:06 | XMS_ITS | CCD ---
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 Name Role Phone MARTIR HERBERT Primary Care Physician [phone] DR MARTIR HERBERT Admitting Unavailable KEON, DR POPE Primary Care Unavailable KEON, DR POPE Consulting Unavailable KEON, DR POPE Attending Unavailable LADAN, DR OSULLIVAN Attending Unavailable HERBERT, DR POPE Primary Care Unavailable LADAN, DR OSULLIVAN Admitting Unavailable LADAN, DR OSULLIVAN Consulting Unavailable MANGO Herbert Primary Care Provider MD Abran Ochoa Attending Provider [phone] Martir Herbert II Primary Care Provider [phone] Keon COBIAN MD, Daniel B Primary Care Provider MANGO Herbert Primary Care Provider [phone] MD Juan Jiang Attending Provider [phone] Juan Jiang Attending Unavailable Martir Herbert Primary Care Unavailable Juan Jiang Admitting Unavailable Abran Ochoaitting Unavailable Abran Ochoa Attending Unavailable Martir Herbert Primary Care Unavailable Jc MENDIOLA Attending Unavailable [...] HERBERT II Primary Care Unavailable Abran OCHOA R Attending Unavailable OCHOA, Abran R Attending Unavailable OCHOA, Abran R Admitting Unavailable OCHOA, Abran R Referring Unavailable OCHOA, Abran R Attending Unavailable OCHOA, Abran R Attending Unavailable OCHOA, Abran R Attending Unavailable OCHOA, Abran R Attending Unavailable OCHOA, Abran R Attending Unavailable OCHOA, Abran R Attending Unavailable OCHOA, Abran R Attending Unavailable MARTIR HERBERT Attending Unavailable MARTIR HERBERT Attending Unavailable Allergies Allergy Classification Reported Allergen(s) Allergy Type Date of Onset Reaction(s) Facility (8 sources) Penicillin; Translations: [penicillin] Drug Allergy Unknown (qualifier value) [facility] (8 sources) Sulfonamides; Translations: [sulfonamides] Drug allergy Unknown (qualifier value) [facility] (3 sources) Penicillins; Translations: [PENICILLINS] Drug allergy (disorder) 3 Hives [facility] Repository (1 source) Sulfonamides (Antibiotic) Drug allergy (disorder) 3 [facility] Repository (7 sources) Penicillins Drug Allergy 3 [facility] (8 sources) Sulfonamides (Antibiotic); Translations: [SULFA (SULFONAMIDE ANTIBIOTICS)] Drug Allergy 3 [facility] (1 source) Penicillins Drug allergy (disorder) 3 [facility] Repository (1 source) Unable to Assess Drug allergy (disorder) 3 [facility] Repository Medications Current Medications Medication Drug Class(es) Dates Sig (Normalized) Sig (Original) acetaminophen 325 mg / HYDROcodone bitartrate 7.5 mg oral tablet (1 source) Opioid Agonist Start: 01-04-2023 take 1 tablet by mouth once, then take 1 tablet by mouth every hour [place] 325 mg-7.5 mg oral tablet 1 tab(s), Oral, Once, 1 tab(s), Refill(s) 0, Take 1 hour prior to procedure, [facility]/pharmacy #[id number], 175, cm, 12/04/22 12:29:00 [...] 12:00am administer with a meal Vit D3-Vit K2-[place] [facility] (1 source) Start: 05-29-2023 take 1 capsule by mouth once daily Vit D3-Vit K2-[place] Ext Active 25 CAP PO Daily May [...] by mouth. lisinopril 10 mg oral tablet (15 sources) Angiotensin Converting Enzyme Inhibitor Start: 01-05-2023 lisinopril (ZESTRIL) 10 mg tablet Start: 10-28-2019 Co Lisinopril Refills(s) 0 Start Date: 10/28/19 Status: Ordered omega-3 acid ethyl esters (penitentiary) 1000 mg oral capsule (8 sources) Start: 01-05-2023 omega-3 acid e thyl esters (LOVAZA) 1 gram capsule OTC PRODUCT (7 sources) OTC PRODUCT Eye and vision supplement 0 Active Comment on above: Eye and vision suppl ement Polyethylene Glycols (7 sources) polyethylene gly col 3350 (CLEARLAX ORAL) Take by mouth. 0 Active Comment on above: Take by mouth. simvastatin 20 mg oral tablet (15 sources) HMG-CoA Reductase Inhibitor Start: 01-05-2023 simvastatin (ZOCOR) 20 mg tablet Start: 10-28-2019 simvastatin Re fills(s) 0 Start Date: 10/28/19 Status: Ordered Problems Problem Classification Problem Date Documented Da te Episodic/Chronic Cancer of prostate (5 sources) Malignant neoplasm of prostate; Translations: [Malignant tumor of prostate] Onset: 02-05-2023 Chronic Cancer; other and unspecified primary (7 sources) H/O Malignant melanoma 10-28-2019 Episodic Disorders of lipid metabolism (4 sources) Mixed hyperlipidemia; Translations: [MIXED HYPERLIPIDEMIA] Onset: 03-04-2022 Chronic Gastrointestinal hemorrhage (1 source) Rectal hemorrhage; Translations: [Hemorrhage of anus and rectum] 05-03-2023 Episodic Genitourinary symptoms and ill-defined conditions (9 sources) Increased frequency of urination; Translations: [Retention of urine] Onset: 10-08-2023 09-01-2020 Episodic Hyperplasia of prostate (19 sources) Benign prostatic hypertrophy with outflow obstruction; Translations: [Prostate nodule] Onset: 12-04-2022 10-28-2019 Chronic Other gastrointestinal disorders (1 source) Constipation; Translations: [Constipation, unspecified] 05-03-2023 Episodic Other nutritional; endocrine; and metabolic disorders (7 sources) Body mass index 25-29 - overweight 09-01-2020 Episodic Other screening for suspected conditions (not mental disorders or infectious disease) (12 sources) Raised prostate specific antigen; Translations: [Elevated [...] Name Value Interpretation Reference Range Facil ity IntraOperative Documentson 0 11-01-2023 IntraOperative Documents [id number]#1.0 0TIFF [facility] Consultation Noteon 10-12-19 Consultation Note [id number]#1.00 TIFF [facility] CNOVon 10-11-2023 CNOV Office Visit (RADTSA ) JOSE CAN ([id number]) 1940 M Date Time Provider Department 10/11/23 9:15 AM Jc MENDIOLA During your visit today, we recorded the following information about you: Temperature Pulse Respiration Blood pressure 97.3 degrees 87/minute 16/minute 125/67 Weight 86 kg Jc Mendiola MD 10/11/2023 9:38 AM Signed Radiation Oncology - Follow Up Note PATIENT NAME: Jose Can PATIENT DIAGNOSIS: Prostate adenocarcinoma, 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 RADIATION SUMMARY: Prostate brachytherapy 09/06/2023: I-125, 145 [place], 61 sources, 23.67 millicurie. INTERVAL HISTORY: Doing well denies problems or concerns. PSA HISTORY: PSA. (no units) Date Value 10/08/2023 1.55 ALLERGIES Allergen Reactions Penicillins Rash Sulfa (Sulfonamide [...] use: Yes Medications to aid urination: y AUA: 5 Bowel movement frequency: 1/day Bowel movement quality: normal Androgen deprivation: Never. PHYSICAL EXAM: BP 125/67 Pulse 87 Temp 36.3 ?C (97.3 ?F) Resp 16 Wt 86 kg (189 lb 9.5 oz) SpO2 97% BMI 28.00 kg/m? KPS: 100 General Appearance: Alert and oriented. No acute distress. Rectal exam is deferred. 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 Status post prostate brachytherapy implant 09/06/2023. Patient overall doing well. Good initial PSA response. Post-implant CT reviewed showing appropriate source distribution. No change or modification in either the treatment or follow-up plan based on this. Plan to see patient back in 6 months. He continues close follow-up with Dr. Ochoa. Signed by: Jc Mendiola MD cc: Martir Herbert II, MD [address] [place] [address] Debra Anthony LPN 10/11/2023 9:38 AM Signed AUA= 5 Allergies As of Date: 10/11/2023 Noted Allergy Reaction PENICILLINS 02/16/2023 2 - Rash SULFA (SULFONAMIDE ANTIBIOTICS) 02/16/2023 2 - Rash Date Reviewed: 09/19/2023 Reviewed by: Debra Quinn LPN - Fully Assessed Primary Visit Diagnosis:Malignant neoplasm of prostate (HCC) [C61] Order(s):PSA (OUTSIDE) [0427021] Order #: [id number] PSA/PROSTSPECAG DIAG [SQPSA] Order #: [id number] FUTURE Prescriptions as of 10/11/2023 - simvastatin (ZOCOR) 20 mg tablet - [...] and vision supplement Problem List As Of Date 10/11/2023 Noted Resolved Malignant neoplasm of prostate (HCC) [C61] 10/11/2023 Visit Notes: >> Debra Quinn LPN Barbi Oct 11, 2023 9:26 AM Status: Signed AUA= 5 Disposition: Return in about 6 months (around 04/10/2024). Follow-up and Disposition History for Encounter Date Provider Department Center 10/11/2023 [id number] MENDIOLA DEVIN FAYE Encounter Status:Closed by Jc MENDIOLA on 10/11/23 [facility] Consultation Noteon 10-09-19 Consultation Note [id number]. 00TIFF Normal [facility] ED Note-Physicianon 10-09-19 ED Note-Physician [id number]#1.00 TIFF Normal [facility] Ambulatory Visit Summaryon 0 10-08-2023 Ambulatory Visit Summary GUILLERMO CANH Adriano :1940 Visit Date:10/08/2023 Ambulatory Visit Instructions Your Diagnosis Prostate cancer BPH with obstruction/lower urinary tract symptoms Urinary retention Tests Performed Urnls Dip Stick Auto w/o Microscopy POC 44979 Your Care Team Attending Physician - LADAN EDWARDS, Abran Darlnig Primary Care Physician - KEON EDWARDS, MARTIR Griffin This Is Your Medications List Contact prescribing physician if questions or concerns lisinopril (Co Lisinopril) simvastatin Procedures Performed Brachytherapy - action (09/06/2023), Transrectal biopsy of prostate using ultrasound (US) [...] hernia repair. Discharge Vitals Heart Rate (Peripheral) 72 Respiratory Rate 16 Blood Pressure 130/74 Height 175 cm Height 69 in Weight 88.7 kg Weight 195.14 lb BMI 28.96 What to do next Scheduled Follow-Up Appointments Sunday 8:00 AM EDT With: LADAN EDWARDS, Abran Darling Where: [facility] [place] Normal [facility] Patient Educationon 10-08-19 Patient Education Oncology Brachytherapy for Prostate Cancer, Care After The following information offers guidance on how to care for yourself after your procedure. Your health care provider may also give you more specific instructions. If you have problems or questions, contact your health care provider. What can I expect after the procedure? After the procedure, it is common to have: ? Urinary symptoms. These may include: ? Trouble urinating. ? Blood in the urine or semen. ? Frequent feeling of an urgent need to urinate. ? Constipation, nausea, or bloating and gas. ? Bruising, swelling, and tenderness of the area beneath the scrotum (perineum). ? Tiredness (fatigue). ? Burning or pain in the rectum. ? Problems getting or keeping an erection (erectile dysfunction). After the thin, flexible urinary tube (Mendoza catheter)is removed, it is common to have: ? Burning when you urinate. This may last for up to 2 weeks after the catheter is removed. ? Trouble controlling when you urinate (incontinence). You may leak urine sometimes. Your ability to control when you urinate should improve as you heal. Follow these instructions at home: Eating and drinking ? Follow instructions from your health care provider about eating or drinking restrictions. ? Drink enough fluid to keep your urine pale yellow. Treatment area care Check your treatment area every day for signs of infection. Watch for: ? Redness, swelling, or pain. ? New drainage or blood. Some dried fluid or blood may be present. ? Warmth. ? Pus or a bad smell. Managing pain and swelling ? If directed, put ice on the affected area. To do this: ? Put ice in a plastic bag. ? Place a towel between your skin and the bag. ? Leave the ice on for 20 minutes at a time, 2?3 times a day. ? Be sure to remove the ice if your skin turns bright red. If you cannot feel pain, heat, or cold, you have a greater risk of damage to the area. ? Try not to sit directly on the perineum. A soft cushion can help with discomfort. Activity ? Do not lift anything that is heavier than 10 lb (4.5 kg), or the limit that you are told, until your health care provider says that it is safe. ? Rest as told by your health care provider. ? Return to your normal activities as told by your health care provider. Ask your health care provider what activities are safe for you. Most people can return to normal activities within a few days. ? If you were given a sedative during the procedure, it can affect you for several hours. Do not drive or operate machinery until your health care provider says that it is safe. ? Follow instructions from your health care provider about when it is safe for you to engage in sexual activity. Managing constipation Your procedure may cause constipation. To prevent or treat constipation, you may need to: ? Take thya-vqn-kxjihbo or prescription medicines. ? Eat foods that are high in fiber, such as beans, whole grains, and fresh fruits and vegetables. ? Limit foods that are high in fat and processed sugars, such as fried or sweet foods. General instructions ? Take ofvb-onn-qrfbnqx and prescription medicines only as told by your health care provider. ? Do not take baths, swim, or use a hot tub until your health care provider approves. You may take a shower and wash the perineum gently. ? Do not strain to have a bowel movement. ? Do not use any products that contain nicotine or tobacco. These products include cigarettes, chewing tobacco, and vaping devices, such as e-cigarettes. If you need help quitting, ask your health care provider. ? If you have permanent, low-dose brachytherapy implants: ? Limit close contact with children and women for 2 months or as told by your health care provider. This is important because of the active radiation in your prostate. ? You may set off radioactive sensors, such as at airport screenings. Ask your health care provider for a document that explains your treatment. ? You may be told to use a condom during sex for the first 2 months after low-dose brachytherapy. In rare cases, a seed can move and come out in semen. A condom keeps it from going into your partner. ? Keep all follow-up visits because you may need more treatment. Contact a health care provider if you: ? Have a fever or chills. ? Have any of these signs of infection in the treatment area: ? Redness, swelling, or pain that is new or gets worse. ? Fluid or blood. ? Warmth. ? Pus or a bad smell. ? Have no bowel movements for 3?4 days after the procedure. ? Have diarrhea for 3?4 days after the procedure. ? Develop any new symptoms, such as problems passing urine or erectile dysfunction. ? Have pain in your abdomen. ? Have more blood in your urine, have urine that is cloudy or smells bad, or have pain or burning when you urinate. ? Have swelling or pain in your legs. Get help right away if: (more content not included)... [facility] Urology Office/Clinic Noteon 10-08-2023 Urology Office/Clinic Note Chief Complaint Post op seed implant HPI Staff 82 yo male here PO brachytherapy done 09/06/23. Previous Dx: prostate ca, prostate nodule, BPH with obstruction, elevated PSA. Prostate MRI done 12/19/22 and TRUS/bx done 01/16/23. Most recent PSA 11/30/22 - 3.1 & 21.9%. Saw Dr. Mendiola 02/16/23 and elected to proceed with brachytherapy. Pt had catheter removed 09/12/23 in our office. Then presented to [facility] ER due to inability to urinate after catheter removal. Bladder scan was >500mL. Dc'd home with Mendoza catheter in place. Came to our office 09/21/23 for catheter removal per approval of PRW. Saw Dr. Mendiola again 09/19/23 with plan to f/u in 2wks for post-implant CT. Dysuria: no Incomplete bladder emptying: no Hematuria: no Frequency: no Urgency: no Nocturia: 1-3x depends on when he stops fluids Stream: good steady Leaking: no Post void dripping: no Wearing pads/ Depends: no Urge incontinence: no Stress incontinence: no Incontinence without Sensory Awareness: no Abdominal pain: no Flank pain: no Sexual complaints: no History of Present Illness Tests reviewed: reviewed UA, rad onc notes, ER notes, urine culture I have reviewed the previous health record information and history for this patient from Dr. Ochoa. I have reviewed and verified the staff HPI to be accurate for this encounter. Review of Systems PHQ Score Initial Depression Screen Score: 0 SCORE ROS - Provider Constitutional: denies weight loss, [...] HPI. Physical Exam Vitals & Measurements HR: 72(Peripheral) RR: 16 BP: 130/74 HT: 69 in HT: 175 cm WT: 88.7 kg WT: 195.14 lb BMI: 28.96 General Appearance: alert, no distress, well nourished, well developed male. Genitourinary: normal scrotum, normal testes, normal urethra, normal epididymis, normal vas deferens/spermatic cord. Flank Pain: none. Bladder: nonpalpable. Assessment/Plan 1. Prostate cancer (C61: Malignant neoplasm of prostate) PSA: 08/05/20 - 3.54 11/30/22 - 3.1 & 21.9% MRI of prostate 12/19/22 - PIRAD 4 lesion (7 mm x 4mm). TRUS/bx 01/16/23 - Alpa 6 (3+3) in 4 cores and [place] 7 (3 +4) in 1 core. Brachytherapy 09/06/23. Last saw Dr. Mendiola 09/19/23. States he has appt with Dr. Mendiola on 10/11/23 with PSA check. Discussed brachytherapy and possible SEs. States he is doing well. Discussed close f/u and monitoring PSA every 3 months. Pt agrees with plan. -PSA in 3 mos 2. BPH with obstruction/lower urinary tract symptoms (N40.1: Benign prostatic hyperplasia with lower urinary tract symptoms) Not currently taking any BPH meds. UA today negative for blood and infection. Gets up 1-3x/night to void. Voids q3hrs during the day. Denies any bothersome urinary habits. 3. Urinary retention (R33.9: Retention of urine, unspecified) Pt had catheter removed 09/12/23 in our office after brachytherapy. Then presented to [facility] ER due to inability to urinate after catheter removal. Bladder scan was >500mL. Dc'd home with Mendoza catheter in place. Came to our office 09/21/23 for catheter removal per approval of PRW. Reports he has not had any issues urinating since. Follow-up With When Contact Information LADAN EDWARDS, Abran Darling, URL [facility] [address], [place] [address] [phone] Additional Instructions: 3 mos w/ PSA Patient Education Brachytherapy for Prostate Cancer, Care After I, Michaela Herbert, personally scribed for Dr. Ochoa on 10/08/2023 10:35:10. . Documentation recorded by the scribe, Michaela Herbert, accurately reflects the services(s) I performed and decisions made by me. Authenticated by Dr. Ochoa on 10/08/2023 10:36:50. Problem List/Past Medical History Ongoing BMI 29.0-29.9,adult BPH with obstruction/lower urinary tract symptoms Elevated PSA Frequent urination Prostate cancer Prostate nodule Urinary retention Historical H/O Malignant melanoma Procedure/Surgical History Brachytherapy - action (09/06/2023), Transrectal biopsy of prostate using ultrasound (US) guidance (12/27/2022), Transrectal biopsy of prostate using ultrasound (US) guidance (05/12/2015), Transrectal biopsy of prostate using ultrasound (US) guidance (12/29/2014), Cystoscopy (10/03/2013), Cystoscopy (09/23/2013), Transrectal biopsy of prostate using ultrasound (US) guidance (10/22/2012), Transrectal biopsy of prostate using ultrasound (US) guidance (09/12/2006), Transrectal biopsy of prostate using ultrasound (US) guidance (07/25/2005), Hemorrhoidectomy, Hiatus hernia rep (more content not included)... [facility] Comment on above: Result Comment: Elec tronically Signed By: Abran OCHOA MD\.br\Date and Time Signed: 10/08/23 10:36 EST\.br\Electronically Co-Signed By: Michaela Herbert\.br\Date and Time Co-Signed: 10/08/23 10:35 EST Ambulatory Visit Summaryon 1 Ambulatory Visit Summary [...] EDWARDS, Abran Darling Where: [facility] [address] [place] [address] \.br\ Medications\.br\ What When Instructions\.br \ Unchanged [...] for choosing us for your care.\.br\ \.br\ [facility] CNOVon 09-19-2023 CNOV Office Visit (RADTSA ) JOSE CAN ([id number]) 1940 M Date Time Provider Department 09/19/23 9:15 AM Jc MENDIOLA During your visit today, we recorded the following information about you: Temperature Pulse Respiration Blood pressure 97.3 degrees 64/minute 16/minute 153/83 Weight 89.4 kg Jc Mendiola MD 09/19/2023 4:02 PM Signed Radiation Oncology - Follow Up Note PATIENT NAME: Jose Can PATIENT DIAGNOSIS: Prostate adenocarcinoma, 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 Allergies As of Date: 09/19/2023 Noted Allergy Reaction PENICILLINS 02/16/2023 2 - Rash SULFA (SULFONAMIDE ANTIBIOTICS) 02/16/2023 2 - Rash Date Reviewed: 09/19/2023 Reviewed by: Debra Quinn LPN - Fully Assessed Reason for Visit: Prostate Cancer [590] Primary Visit Diagnosis:Malignant neoplasm of prostate (HCC) [C61] Order(s):PSA/PROSTSPEC AG DIAG [SQPSA] Order #: [id number] FUTURE Prescriptions as of 09/19/2023 - simvastatin [...] for Encounter Date Provider Department Center 09/19/2023 [id number] MENDIOLA DEVIN FAYE Encounter Status:Closed by Jc MENDIOLA on 09/19/23 [facility] Ambulatory Visit Summaryon 1 11-13-2022 Ambulatory Visit Summary PAMELLA JOSE J :1940 Visit Date:09/12/2023 Ambulatory Visit [...] EDWARDS, Abran Darling Where: [facility] [place] [facility] [address] [place] [address] [place] [address]- \.br\ Medications\.br\ What When Instructions\.br \ Unchanged [...] for choosing us for your care.\.br\ \.br\ [facility] Lab Reportson 09-07-2023 Lab Reports [id number]#1.0 0TIFF [facility] Operative Reporton Operative Report [id number]#1.0 0TIFF Normal [facility] RAD - MISCon 09-07-2023 RAD - MISC [id number]#1.0 0TIFF Normal [facility] CNOVon 09-06-2023 CNOV Office Visit (RADTSA ) JOSE CAN ([id number]) 1940 M Date Time Provider Department 09/06/23 9:00 AM Jc MENDIOLA During your visit today, we recorded the following information about you: Jc Mendiola MD 09/06/2023 3:18 PM Signed Date: 09/06/23 Facility: [facility] Procedure: prostate transperineal brachytherapy implant Diagnosis: Prostate [...] activity seen, results documented. Edilma Mendiola MD [facility] Allergies As of Date: 09/06/2023 Noted [...] Encounter Status:Closed by Jc MENDIOLA on 09/06/23 [facility] Consultation Noteon 08-10-20 Consultation Note [id number]#1.0 0TIFF [facility] 07-24-2023 CNPN Telephone (RADTSA) JOSE CAN ([id number]) 1940 Date Time Provider Department 07/24/23 Jc MENDIOLA [facility] During your visit today, we recorded the [...] upcoming prostate seed implant and follow ups. Dbera Quinn RN Allergies As of Date: 07/24/2023 [...] Status:Closed by DEBRA QUINN on 07/25/23 Normal [facility] ECG 12-Leadon 07-24-2023 ECG 12-Lead [id number]#1.0 0TIFF [facility] Formson 07-24-2023 Forms [id number]#1.0 0TIFF [facility] ECG 12-Leadon 07-20-2023 ECG 12-Lead [id number]#1.0 0TIFF [facility] Lab Reportson 07-20-2023 Lab Reports [id number]#1.00 TIFF [facility] Lab Reports [id number] .00TIFF [facility] Lab Reports [id number]#1.00 TIFF [facility] RAD - MISCon 07-20-2023 RAD - MISC [id number] TIFF [facility] CNOVon 07-11-2023 CNOV Office Visit (RADTSA ) JOSE CAN ([id number]) 1940 M Date Time Provider Department 07/11/23 [...] Status:Closed by Jc MENDIOLA on 07/12/23 Normal [facility] Consent for Procedure/Surger yon 06-27-2023 Consent for Procedure/Surgery [id number]. 00CD:127 Normal [facility] CNPRosa Isela 06-04-2023 CNPN Telephone (RADTSA) JOSE CAN ([id number]) 1940 M Date Time Provider Department 06/04/23 Jc MENDIOLA RADSUSIEA During your visit today, we recorded the [...] 81 mg by mouth once daily. - [facility] PRODUCT Eye and vision supplement Problem List As Of Date: 06/04/2023 (None) Encounter Status:Closed by NICHELLE ELKINS on 06/04/23 Normal [facility] 05-29-2023 L -- ---- Specimen: [id number] Received: 05/29/23 Status: RANDI Capellan Num: [id number] Spec Type: Surgical Subm Dr: Juan Jiang MD Tissues: A Colon Biopsy (ASCENDING POLYP) Procedures: Areli RAMIREZ/Phuc Butt ---- Age/ Patient Sex Location Account Attending Physician ---- Jose Can 82/M [id number] Juan Jiang MD ---- SPEC NUM: [id number] RECD: 05/29/23 STATUS: RANDI CAPELLAN NUM: [id number] FAIZAN: 05/29/23- SUBM DR: Juan Jiang MD ENTERED: 05/29/23 [facility] DR: SPEC TYPE: Surgical DEPT: S ORDERED: [...] microscopic examination confirms the diagnosis. CPT Codes 78192 ---- ---- Specimen: [id number] Received: 05/29/23 Status: RANDI Capellan Num: [id number] Spec Type: Surgical Subm Dr: Juan Jiang MD Tissues: A Colon Biopsy (ASCENDING POLYP) Procedures: HE/2, Gross/Micro L4 ---- Patient: Guillermo Caneduardo Oh [id number] (Continued) ---- Signed (signature on file) Kashmir Linares MD 05/31/23 1712 [facility] TIMN Telephone (RADTSA) PAMELLAJOSE ([id number]) 1940 M Date Time Provider Department 05/02/23 [...] colonoscopy was done per Dr Franco at [facility] in 2016. It was normal. Dr Mendiola-- please advise. 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 Normal [facility] Consultation Noteon 02-17-20 Consultation Note [id number] 0CD:127 Normal [facility] Patient Educationon 02-06-20 Patient Education Oncology Prostate [...] under a microscope. This is called the [place] score and the total score can range from 6?10, indicating how likely it is that the cancer will spread (metastasize) to other parts of the body. The higher the score, the greater the likelihood that the cancer will spread. ? Alpa 6 or lower: This indicates that the cancer cells look similar to normal prostate cells (well differentiated). ? [place] 7: This indicates that the cancer cells [...] external be (more content not included)... Normal [facility] Progress Note-Nurseon 2022 Progress Note-Nurse GUILLERMO CANEduardo Oh :1940 Visit Date:02/05/2023 Ambulatory Visit Instructions Your Diagnosis Prostate cancer Prostate nodule BPH with obstruction/lower urinary tract symptoms Elevated PSA Tests Performed Urnls Dip Stick Auto w/o Microscopy POC 04320 Your Care Team Attending Physician - LADAN EDWARDS, Abran Darling Primary Care Physician - KEON EDWARDS, MARTIR Griffin This Is Your Medications List Contact prescribing physician if questions or concerns lisinopril (Co Lisinopril) simvastatin [Image Removed: STOP]Stop taking these medications acetaminophen-hydrocod one ([place] 325 mg-7.5 mg oral tablet) Procedures Performed [...] EDWARDS, Abran Darling Where: [facility] Normal Prostate nodule\.br\ Medications\.br\ What When Instructions\.br \ Unchanged lisinopril (Co Lisinopril) Contact prescribing physician if questions or concerns \.br\ Unchanged simvastatin Contact prescribing physician if questions or concerns \.br\ \.br\ What How Much When Why Comments\.br\ Stop Taking acetaminophen-hy drocodone ([place]ox[place] 325 mg-7.5 mg oral tablet) 1 Tablets By Mouth Once Prostate nodule Take 1 hour prior to procedure \.br\ Test Results\.br\ Urnls Dip Stick Auto w/o Microscopy POC 95668 (02/05/2023)\.br \ Bilirubin Urine Dipstick - Negative\.br\ Blood Urine Dipstick - Negative\.br\ Glucose Urine Dipstick - Negative\.br\ Ketones Urine Dipstick - Negative\.br\ Leukocytes Urine Dipstick - Negative\.br\ Nitrite Urine Dipstick - Negative\.br\ Protein Urine Dipstick - Negative\.br\ Specific [place] Urine Dipstick - 1.020\.br\ Urine Appearance Urine [...] that the cancer will spread.\.br\ ? \.br\ Alpa 6 or lower: This indicates that [...] testosterone, one of the male hormones, by:\ [facility] Urology Office/Clinic Noteon 02-05-2023 Urology Office/Clinic Note [...] done 01/16/2023 are positive for Prostate cancer. Coopersburg 3+3= 6 (4 cores) and Alpa 3 [...] cons of each therapy today, and this [place] prostate cancer book was provided. Patient given his age, and Coopers[place] score is not a surgical candidate for prostatectomy. Patient is very active with work and is leaning toward maybe just doing [employer] [place] [employer]. He will need referral to Dr. Mendiola for consultation. 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 2. Prostate nodule (N40.2: Nodular [...] Ochoa. Will refer to Dr. Mendiola for [employer] [place] [employer] implant in . Follow-up With When Contact Information Abran OCHOA MD, URL In 6 months [facility] [address] [place] [address] [phone] Additional Instructions: Will refer to Dr. Mendiola Patient Education Prostate Cancer I, Christina Lima, personally scribed for Dr. Ochoa on 02/05/2023 09:36:02. . Documentation recorded by the scribeaaron, accurately reflects the services(s) I performed and [...] biopsy of (more content not included)... Normal [facility] Comment on above: Result Comment: Elec tronically Signed By: Abran OCHOA MD\.br\Date and Time Signed: 02/05/23 09:38 EDT\.br\Electronically Co-Signed By: Christina Lima\.br\Date and Time Co-Signed: 02/05/23 09:36 EDT Prostate Histology ([facility]) on 01-29-2023 Prostate Histology Diagnosis Info Invalid Interpretation Code [facility] Comment on above: Result Comment: A:Pr ostate,Left Lateral Base:Needle Biopsy Interpretation - - Benign prostatic tissue. MicroScopic Description - B:Prostate,Left Lateral Mid:Needle Biopsy Interpretation - - Benign prostatic tissue with patchy chronic inflammation. MicroScopic Description - C:Prostate,Left Lateral [place]:Needle Biopsy Interpretation - - Benign prostatic tissue. MicroScopic Description - D:Prostate,Left Base:Needle Biopsy Interpretation - - Acinar adenocarcinoma of prostate; Coop[place] score 6(3+3); Tumor measures 0.5 cm in length; 25% of the core involved by tumor; 1 of 2 cores involved (see comment). MicroScopic Description - E:Prostate,Left Mid:Needle Biopsy Interpretation - - Benign prostatic tissue with patchy chronic inflammation. MicroScopic Description - F:Prostate,Left [place]:Needle Biopsy Interpretation - - Benign prostatic tissue. MicroScopic Description - G:Prostate,Right Base:Needle Biopsy Interpretation - - Acinar adenocarcinoma of prostate; [place] score 6(3+3); Tumor measures 0.2 cm in length; 12% of the core involved by tumor; 1 of 1 core involved (see comment) MicroScopic Description - H:Prostate,Right Mid:Needle Biopsy Interpretation - - Benign prostatic tissue with patchy chronic inflammation. MicroScopic Description - I:Prostate,Right [place]:Needle Biopsy Interpretation - - Acinar adenocarcinoma of prostate; [place] score 7(3+4); Tumor measures 0.21 cm in length; 26% of the core involved by tumor; 1 of 1 core involved (see comment). MicroScopic Description - J:Prostate,Right Lateral Base:Needle Biopsy Interpretation - - Acinar adenocarcinoma of prostate; [place] score 6(3+3); Tumor measures 0.35 cm in length; 25% of the core involved by tumor; 1 of 1 core involved (see comment). MicroScopic Description - K:Prostate,Right Lateral Mid:Needle Biopsy Interpretation - - Benign prostatic tissue with patchy chronic inflammation. MicroScopic Description - L:Prostate,Right Lateral [place]:Needle Biopsy Interpretation - - Acinar adenocarcinoma of prostate; [place] score 6(3+3); Tumor measures 0.15 cm in [...] The performance characteristics were determined by the [employer] MD. They have not been cleared by the [place] Food and Drug Administration. The FDA has determined that such clearance or approval is not necessary. Appropriate positive and negative controls are performed and are acceptable. Electronically signed by : on: 01/29/2023 13:43:29 Performed By: #### 1 [id number] ####[facility] [address] [place] [address] Consent for Procedure/Surger yon 01-16-2023 Consent for Procedure/Surgery [id number] 0CD:127 Normal [facility] Consent for Treatmenton - Consent for Treatment [id number]#1.0 0CD:127 Normal [facility] IntraOperative Documentson 0 01-16-2023 IntraOperative Documents [id number]#1.0 0CD:127 [facility] Main OR Intraoperative Recor don 01-16-2023 Main OR Intraoperative Record IntraOp Document Type FTURO Summary Primary Physician: Abran OCHOA MD Finalized Date/Time: 01/16/23 09:23:49 Pt. Name: JOSE CAN/Sex: 1940 Male Med Rec #: [id number] Physician: Abran OCHOA MD Financial #: [id number] Pt. Type: O Room/Bed: / Admit/Disch: 01/16/23 08:00:37 - Institution: Case Times FTURO Entry 1 Patient Times In Room 01/16/23 09:05:00 Out Room 01/16/23 09:27:00 Procedure Times Start 01/16/23 09:08:00 Stop 01/16/23 09:22:00 Anesthesia Times Last Modified By: Helga LANCE, CARLENEOR, Kacie 01/16/23 09:22:56 Case Attendance FTURO Entry 1 Entry 2 Entry 3 Case Attendee LADAN EDWARDS, Abran Partida RN, CNOR, Rolando PHAM, Ileana Hester Role Performed Surgeon - Primary Utility Spray Operator - Primary Scrub - Primary Time In 01/16/23 09:05:00 01/16/23 09:05:00 01/16/23 09:05:00 Time Out 01/16/23 09:27:00 01/16/23 09:27:00 01/16/23 09:27:00 Procedure PROSTATE TRANSRECTAL PROSTATE TRANSRECTAL PROSTATE TRANSRECTAL ULTRASOUND WITH BIO(.) ULTRASOUND WITH BIO(.) ULTRASOUND WITH BIO(.) Sherif wright rn orienting Last Modified By: Helga RN, CNOR, Helga RN, CNOR, Helga RN, CARLENEOR, Kacie 01/16/23 Kacie 01/16/23 Kacie 01/16/23 [...] LADAN EDWARDS, Abran Darling, Verified (If Participants SANYA Partida RN, Applicable) Rolando Hester TERMITE CONTROL REPRESENTATIVE, Ileana Holliday Time Out Complete 01/16/23 09:07:00 [...] 09:23 SANYA Partida RN, Ruthann 01/16/23 09:23 [facility] Main OR Preoperative Recordo n 01-16-2023 Main OR Preoperative Record Holding Area Document Type FTURO Summary Primary Physician: Abran OCHOA MD Finalized Date/Time: 01/16/23 09:17:56 Pt. Name: RENO CANMELLISSA Prado.O.B./Sex: 1940 Male Med Rec #: [id number] Physician: Abran OCHOA MD Financial #: [id number] Pt. Type: O Room/Bed: / Admit/Disch: 01/16/23 [...] No Pain Comment: na Skin Integrity Intact, [place], Warm, & Dry Vitals - EU Blood Pressure 147/71 Pulse 55 bpm Respirations 18 br/min SPO2 98 % RN Reviewed Yes Last Modified By: SANYA Partida RN, Ruthann 01/16/23 09:17:53 General Comments: temp:97.2 Finalized By: SANYA Partida RN, Ruthann Document Signatures Signed By: Atiya Ken LPN 01/16/23 08:14 SANYA Partida RN, Ruthann 01/16/23 09:17 Normal [facility] Operative Reporton Operative Report Patient: JOSE CAN [...] was taken and sent to pathology.. Normal [facility] Comment on above: Result Comment: Elec tronically Signed By: Abran OCHOA MD\.br\Date and Time Signed: 01/16/23 09:30 EDT Patient [...] for your post-operative appointment in 1-2 weeks [phone] or [phone] Normal [facility] Prostate Histology ([facility]) on 01-16-2023 PH Method of Extraction Needle Biopsy Normal [facility] Comment on above: Performed By: #### 1 [id number] ####[facility] [address] [place] [address] PH Number of Jars 2 Invalid Interpretation Code [facility] Comment on above: Performed By: #### 1 [id number] ####[facility] [address] [place] [address] PH Specimen 1 L Apx Prostate Normal [facility] Comment on above: Performed By: #### 1 [id number] ####[facility] [address] [place] [address] PH Specimen 10 R Lat Bse Prost Normal [facility] Comment on above: Performed By: #### 1 [id number] ####[facility] [address] [place] [address] PH Specimen 11 R Lat Mid Pr 1 Normal [facility] Comment on above: Performed By: #### 1 [id number] ####[facility] [address] [place] [address] PH Specimen 12 R Mid Prost 1 Normal [facility] Comment on above: Performed By: #### 1 [id number] ####[facility] [address] [place] [address] PH Specimen 2 L Base Prostate Normal [facility] Comment on above: Performed By: #### 1 [id number] ####[facility] [address] [place] [address] PH Specimen 3 L Lat Apx Prost Normal [facility] Comment on above: Performed By: #### 1 [id number] ####[facility] [address] [place] [address] PH Specimen 4 L Lat Bse Prost Normal [facility] Comment on above: Performed By: #### 1 [id number] ####[facility] [address] [place] [address] PH Specimen 5 L Mid Prost 1 Normal [facility] Comment on above: Performed By: #### 1 [id number] ####[facility] [address] [place] [address] PH Specimen 6 L Lat Mid Pr 1 Normal [facility] Comment on above: Performed By: #### 1 [id number] ####[facility] [address] [place] [address] PH Specimen 7 R Apx Prostate Normal [facility] Comment on above: Performed By: #### 1 [id number] ####[facility] [address] [place] [address] PH Specimen 8 R Base Prostate Normal [facility] Comment on above: Performed By: #### 1 [id number] ####[facility] [address] [place] [address] PH Specimen 9 R Lat Apx Prost Normal [facility] Comment on above: Performed By: #### 1 [id number] ####[facility] [address] [place] [address] PH Type of Service Technical Only Normal [facility] Comment on above: Performed By: #### 1 [id number] ####[facility] [address] [facility] [place] [place] [address] RAD - MRI Reporton 3 RAD - MRI Report [id number] 0CD:127 Normal [facility] Creatinine (Bld) [Mass/Vol]O rdered By: Abran Ochoa on 12-19-2022 Creatinine [Mass/Vol] 0.9 mg/dL 0.6-1.3 [facility] Comment on above: ER/ESD physician is notified/shown all ISTAT results.Critical values may be confirmed by laboratory testing ifdeemed necessary by ER attending doctor. MR prostate wo/w conon 12-19 MR prostate wo/w con [facility] Main [address] [address] MRI Report Signed Patient: Jose Can MR#: [id number] : 1940 Acct:[id number] Age/Sex: 82 / M ADM Date: 12/19/22 Loc: MR Room: Type: [facility] Attending Dr: Abran Ochoa MD Copies to: Abran Ochoa MD Ordering Provider: Abran Ochoa MD Date of Service: 12/19/22 MR/MR prostate wo/w con: N40.2 EXAMINATION: MR prostate wo/w con HISTORY: Elevated PSA. COMPARISON: NONE TECHNIQUE: Multiparametric imaging of the prostate gland was performed with IV contrast. FINDINGS: Examination is suboptimal due to motion. The small ofqwv-wr-ytss T2-weighted images are significantly limited. Prostate Dimensions: [...] Blank Jr., D.OParvin12/19/2022 12:05 PM Dictation Location: [place] [address] Transcribed By: [facility] 12/19/22 1205 Dictated By: Ede Blank Jr, DO 12/19/22 1150 Signed By: 12/19/22 1205 [facility] Ambulatory Visit Summaryon 0 12-04-2022 Ambulatory Visit Summary PAMELLA JOSE J :1940 Visit Date:12/04/2022 Ambulatory Visit Instructions Your Diagnosis BPH with obstruction/lower urinary tract symptoms Prostate nodule Tests Performed Urnls Dip Stick Auto w/o Microscopy POC 91456 Your Care Team Attending Physician - Abran [...] Following Appointments Follow Up with LADAN EDWARDS, ISSAC Lozano When: Where: [facility] [address] [place] [address]- Medications What When Instructions Unchanged lisinopril (Co Lisinopril) Contact prescribing physician if questions or concerns Unchanged simvastatin Contact prescribing physician if questions or concerns Test Results Urnls Dip Stick Auto w/o Microscopy POC 68908 (12/04/2022) Bilirubin Urine Dipstick - Negative Blood Urine Dipstick - Negative Glucose Urine Dipstick - Negative Ketones Urine Dipstick - Negative Leukocytes Urine Dipstick - Negative Nitrite Urine Dipstick - Negative Protein Urine Dipstick - Negative Specific [place] Urine Dipstick - >=1.030 Urine Appearance Urine [...] may refe (more content not included)... Normal [facility] Patient Educationon 12-05-19 Patient Education [...] Follow these instructions at home: ? Take nkxn-owj-smfimnx and prescription medicines only as told by [...] You d (more content not included)... Normal [facility] Urology Office/Clinic Noteon 12-04-2022 Urology [...] URL [facility] [address], [place] [address]- Additional Instructions: schedule MRI Patient Education Benign [...] (12/04/22 12:25:00) (more content not included)... Normal [facility] Comment on above: Result Comment: Elec tronically Signed By: Abran OCHOA MD\.br\Date and Time Signed: 12/04/22 12:54 EDT\.br\Electronically Co-Signed By: Debi Vidal\.br\Date and Time Co-Signed: 12/04/22 12:53 EDT PSA, FREE AND TOTAL RATIOon 10-18-2022 % Free PSA 21.9 % Normal [facility] Comment on above: Result Comment: The table [...] men. Performed By: #### P SAFREE #### [facility] [address] [place] [address] Dr. Deisi Bush Prostate specific Ag [Mass/Vol] 3.1 ng/mL Normal 0.0-4.0 [facility] Comment on above: Result Comment: Cris DSOUZAIA methodology. . According to the [place] [employer], Serum PSA should decrease and [...] disease. Performed By: #### P SAFREE #### [facility] [address] [place] [address] Dr. Deisi Bush PSA, Free 0.68 ng/mL Normal N/A [facility] Comment on above: Result Comment: Cris baker ECLIA methodology. Performed By: #### P SAFREE #### [facility] [address] [place] [address] Dr. Deisi Bush CBC AUTO DIFFon 03-04-2022 BASO # 0.0 103/ul Normal 0.0-0.1 [facility] Comment on above: Performed By: #### C BC #### [facility] [address] [place] [address] Dr. Deisi Bush Basophils/100 WBC (Bld) 0.6 % Normal 0.2-2.0 [facility] Comment on above: Performed By: #### C BC #### [facility] [address] [place] [address] Dr. Deisi Bush EO # 0.5 103/ul Normal 0.0-0.7 [facility] Comment on above: Performed By: #### C BC #### [facility] [address] [place] [address] Dr. Deisi Bush Eosinophils/100 WBC (Bld) 10.2 % Critically high 0.9-7.0 [facility] Comment on above: Performed By: #### C BC #### [facility] [address] [place] [address] Dr. Deisi Bush Erythrocyte distribution width (RBC) [Ratio] 13.4 % Normal 11.0-15.0 [facility] Comment on above: Performed By: #### C BC #### [facility] [address] [place] [address] Dr. Deisi Bush Hematocrit (Bld) [Volume fraction] 42.3 % Normal 42.0-54.0 [facility] Comment on above: Performed By: #### C BC #### [facility] [address] [place] [address] Dr. Deisi Bush Hemoglobin (Bld) [Mass/Vol] 14.1 g/dL Normal 14.0-18.0 [facility] Comment on above: Performed By: #### C BC #### [facility] [address] [place] [address] Dr. Deisi Bush IG # 0.01 10e3/ul Normal 0.00-0.03 [facility] Comment on above: Performed By: #### C BC #### [facility] [address] [place] [address] Dr. Deisi Bush IG % 0.2 % Normal 0.0-0.5 [facility] Comment on above: Performed By: #### C BC #### [facility] [address] [place] [address] Dr. Deisi Bush LYMPH # 2.4 103/ul Normal 1.2-3.8 [facility] Comment on above: Performed By: #### C BC #### [facility] [address] [place] [address] Dr. Deisi Bush Lymphocytes/100 WBC (Bld) 46.5 % Normal 20.5-60.0 [facility] Comment on above: Performed By: #### C BC #### [facility] [address] [place] [address] Dr. Deisi Bush MANUAL DIFF REQ NO Normal [facility] Comment on above: Performed By: #### C BC #### [facility] [address] [place] [address] Dr. Deisi Bush MCH (RBC) [Entitic mass] 30.5 pg Normal 25.9-34.0 [facility] Comment on above: Performed By: #### C BC #### [facility] [address] [address] [address] Deisi Bush MCHC (RBC) [Mass/Vol] 33.3 g/dL Normal 29.9-35.2 [facility] Comment on above: Performed By: #### C BC #### [facility] [address] [address] [address] Deisi Bsuh MCV (RBC) [Entitic vol] 91.4 fL Normal 80.0-94.0 [facility] Comment on above: Performed By: #### C BC #### [facility] [address] [place] [address] Dr. Deisi Bush MONO # 0.6 103/ul Normal 0.3-0.8 [facility] Comment on above: Performed By: #### C BC #### [facility] [address] [place] [address] Dr. Deisi Bush Monocytes/100 WBC (Bld) 10.6 % Normal 1.7-12.0 [facility] Comment on above: Performed By: #### C BC #### [facility] [address] [place] [address] Dr. Deisi Bush NEUT # 1.7 103/ul Normal 1.4-6.5 [facility] Comment on above: Performed By: #### C BC #### [facility] [address] [place] [address] Dr. Deisi Bush Neutrophils/100 WBC (Bld) 31.9 % Critically low 43.0-75.0 [facility] Comment on above: Performed By: #### C BC #### [facility] [address] [address] [address] Deisi Bush Platelet mean volume (Bld) [Entitic vol] 9.2 fL Critically low 9.5-13.5 [facility] [facility] Comment on above: Performed By: #### C BC #### [facility] [address] [address] [address] Deisi Bush PLT 219 103/ul Normal 150-450 [facility] Comment on above: Performed By: #### C BC #### [facility] [address] [address] [address] Deisi Bush RBC 4.63 106/ul Critically low 4.70-6.10 [facility] Comment on above: Performed By: #### C BC #### [facility] [address] [address] [address] Deisi Bush WBC 5.2 103/ul Normal 4.0-11.0 [facility] Comment on above: Performed By: #### C BC #### [facility] [address] [address] [address] Deisi Bush LIPID PROFILEon 03-04-2022 CHOL-HDL RATIO NORM SEE BELOW Normal [facility] Comment on above: Result Comment: 3.3 - 4.4 LOW RISK 4.4 - 7.1 AVERAGE RISK 7.1 - 11.0 MODERATE RISK >11.0 HIGH RISK Performed By: #### T SH, LIPID, CMP #### [facility] [address] [address] [address] Deisi Bush Cholesterol [Mass/Vol] 125 mg/dL Normal <=200 [facility] Comment on above: Performed By: #### T SH, LIPID, CMP #### [facility] [address] [place] [address] Dr. Deisi Bush Cholesterol in HDL [Mass/Vol] 37 mg/dL Critically low 40-60 [facility] Comment on above: Performed By: #### T SH, LIPID, CMP #### [facility] [address] [address] [address] Deisi Bush Cholesterol in LDL [Mass/Vol] 75.6 mg/dL Normal [facility] Comment on above: Performed By: #### T SH, LIPID, CMP #### [facility] [address] [place] [address] Dr. Deisi Bush Cholesterol.total /Cholesterol in HDL [Mass ratio] 3.4 {ratio} Normal [facility] Comment on above: Performed By: #### T SH, LIPID, CMP #### [facility] [address] [address] [address] Deisi Bush HDL NORMAL > or = 60 mg/dl - LO W CARDIOVASCULAR RISK <40 mg/dl - HIGH CARDIOVASCULAR RISK Normal [facility] Comment on above: Performed By: #### T SH, LIPID, CMP #### [facility] [address] [address] [address] Deisi Bush LDL CALC NORMAL SEE BELOW Normal [facility] Comment on above: Result Comment: <100 mg/dl OPTIMAL 100 - 129 mg/dl NEAR OR ABOVE OPTIMAL 130 - 159 mg/dl BORDERLINE HIGH 160 - 189 mg/dl HIGH >190 mg/dl VERY HIGH Performed By: #### T SERGIO, LIPID, CMP #### [facility] [address] [address] [address] Deisi Bush Triglyceride [Mass/Vol] 62 mg/dL Normal <=150 [facility] Comment on above: Performed By: #### T SERGIO, LIPID, CMP #### [facility] [address] [address] [address] Deisi Bush VLDL CALC 12.4 mg/dL Normal [facility] Comment on above: Performed By: #### T SERGIO, LIPID, CMP #### [facility] [address] [address] [address] Deisi Bush PROF 14(COMP METB)on 022 Albumin [Mass/Vol] 3.4 g/dL Normal 3.4-5.0 [facility] Comment on above: Performed By: #### T SH, LIPID, CMP #### [facility] [address] [address] [address] Deisi Bush Albumin/Globulin [Mass ratio] 0.9 {ratio} Normal [facility] Comment on above: Performed By: #### T SH, LIPID, CMP #### [facility] [address] [address] [address] Deisi Bush ALP [Catalytic activity/Vol] 73 U/L Normal 46-116 [facility] Comment on above: Performed By: #### T SH, LIPID, CMP #### [facility] [address] [address] [address] Deisi Bush ALT [Catalytic activity/Vol] 27 U/L Normal 16-63 [facility] Comment on above: Performed By: #### T SH, LIPID, CMP #### [facility] [address] [address] [address] Deisi Bush Anion gap [Moles/Vol] 11.6 mmol/L Normal [facility] Comment on above: Performed By: #### T SH, LIPID, CMP #### [facility] [address] [address] [address] Deisi Bush AST [Catalytic activity/Vol] 22 U/L Normal 15-37 [facility] Comment on above: Performed By: #### T SH, LIPID, CMP #### [facility] [address] [place] [address] Dr. Deisi Bush Bilirubin [Mass/Vol] 1.1 mg/dL Critically high 0.2-1.0 [facility] Comment on above: Performed By: #### T SH, LIPID, CMP #### [facility] [address] [place] [address] Dr. Deisi Bush Calcium [Mass/Vol] 8.7 mg/dL Normal 8.5-10.1 [facility] Comment on above: Performed By: #### T SH, LIPID, CMP #### [facility] [address] [address] [address] Deisi Bush Chloride [Moles/Vol] 105 mmol/L Normal 98-107 [facility] Comment on above: Performed By: #### T SH, LIPID, CMP #### [facility] [address] [address] [address] Deisi Bush CO2 [Moles/Vol] 27.6 mmol/L Normal 21.0-32.0 [facility] Comment on above: Performed By: #### T SH, LIPID, CMP #### [facility] [address] [place] [address] Dr. Deisi Bush Creatinine [Mass/Vol] 0.90 mg/dL Normal 0.70-1.30 [facility] Comment on above: Performed By: #### T SH, LIPID, CMP #### [facility] [address] [address] [address] Deisi Bush EGFR-AF IRISH >60 Normal >=60 [facility] Comment on above: Performed By: #### T SH, LIPID, CMP #### [facility] [address] [address] [address] Deisi Bush EGFR-NON AF IRISH >60 Normal >=60 [facility] Comment on above: Performed By: #### T SH, LIPID, CMP #### [facility] [address] [address] [address] Deisi Bush Globulin (S) [Mass/Vol] 3.6 g/dL Normal [facility] Comment on above: Performed By: #### T SH, LIPID, CMP #### [facility] [address] [address] [address] Deisi Bush Glucose [Mass/Vol] 96 mg/dL Normal 74-106 [facility] Comment on above: Performed By: #### T SH, LIPID, CMP #### [facility] [address] [address] [address] Deisi Bush Potassium [Moles/Vol] 4.2 mmol/L Normal 3.5-5.1 [facility] Comment on above: Performed By: #### T SH, LIPID, CMP #### [facility] [address] [address] [address] Deisi Bush Protein [Mass/Vol] 7.0 g/dL Normal 6.4-8.2 [facility] Comment on above: Performed By: #### T SH, LIPID, CMP #### [facility] [address] [address] [address] Deisi Bush Sodium [Moles/Vol] 140 mmol/L Normal 136-145 [facility] Comment on above: Performed By: #### T SH, LIPID, CMP #### [facility] [address] [address] [address] Deisi Bush Urea nitrogen [Mass/Vol] 16.0 mg/dL Normal 7.0-18.0 [facility] Comment on above: Performed By: #### T SH, LIPID, CMP #### [facility] [address] [address] [address] Deisi Bush Urea nitrogen/Creatini ne [Mass ratio] 17.8 mg/mg Normal [facility] Comment on above: Performed By: #### T SH, LIPID, CMP #### [facility] [address] [address] [address] Deisi Bush TSHon 03-04-2022 TSH 1.259 uIU/mL Normal 0.358-3.740 [facility] Comment on above: Performed By: #### T SH, LIPID, CMP #### [facility] [address] [address] [address] Deisi Bush TSH RANGE SEE BELOW Normal [facility] Comment on above: Result Comment: <0.3 4 UIU/ml HYPERTHYROID 0.34-5.60 UIU/ml EUTHYROID >5.60 UIU/ml HYPOTHYROID Performed By: #### T SH, LIPID, CMP #### [facility] [address] [address] [address] Deisi Bush Lipid Panelon 09-21-2021 Cholesterol [Mass/Vol] 181 mg/dL Normal 125-200 [facility] Comment on above: Result Comment: Low risk < 200mg/dL Borderline risk 201-239 mg/dl High risk > or equal to 240 Performed By: #### L IPD #### [facility] [address] [place], [place] [id number] Cholesterol in HDL [Mass/Vol] 41 mg/dL Normal >40 [facility] Comment on above: Result Comment: High Cardiovascular Risk HDL <40 mg/dL Low Cardiovascular Risk HDL > or equal to 60 mg/dl Performed By: #### L IPD #### [facility] [address] [place], [place] [id number] Cholesterol in LDL [Mass/Vol] 126 mg/dL Normal [facility] Comment on above: Result Comment: LDL ATP III CLASSIFICATION LDL less than 100 mg/dl Optimal LDL 100-129 mg/dl Near or above optimal LDL 130-159 Borderline high LDL 160-189 High LDL greater than 189 mg/dl Very High Performed By: #### L IPD #### [facility] [address] [place], [place] [id number] Cholesterol in VLDL [Mass/Vol] 14 mg/dL Normal [facility] Comment on above: Performed By: #### L IPD #### [facility] [address] [place], [place] [id number] Cholesterol.total /Cholesterol in HDL [Mass ratio] 4 {ratio} Normal [facility] Comment on above: Performed By: #### L IPD #### [facility] [address] [place], [place] [id number] Triglyceride [Mass/Vol] 72 mg/dL Normal 30-150 [facility] Comment on above: Result Comment: TRIG ATPIII CLASSIFICATIONS TRIG less than 150 mg/dl Normal TRIG 150-199 mg/dl Borderline High TRIG 200-500 mg/dl High TRIG greather than 500 mg/dl Very High Performed By: #### L IPD #### [facility] [address] [place], [place] [id number] PSA SCREEN (MEDICARE)on 08-25 TPSA 3.110 ng/mL Normal <4.000 [facility] Comment on above: Result Comment: PSA Test Method: ECLIA/Saw e 601 Performed By: #### P SA MC #### [facility] [address] [place], [place] [id number] Vital Signs Date Time Vital Sign Value Performing Clinician Jose Enrique carpenter 10-08-2023 09:53-0500 Blood Pressure Location Abran OCHOA [facility] 10-08-2023 09:53-0500 Diastolic blood pressure 74 mm[Hg] Abran OCHOA [facility] 10-08-2023 09:53-0500 Heart rate 72 /min Abran OCHOA [facility] 10-08-2023 09:53-0500 Respiratory rate 16 /min Abran OCHOA [facility] 10-08-2023 09:53-0500 Systolic blood pressure 130 mm[Hg] Abran OCHOA [facility] 05-29-2023 09:10-0400 Diastolic blood pressure 67 mm[Hg] II Martir Herbert Work Phone: [facility] 05-29-2023 09:10-0400 Heart rate 51 /min II Martir Herbert Work Phone: [facility] 05-29-2023 09:10-0400 Respiratory rate 16 /min II Martir Herbert Work Phone: [facility] 05-29-2023 09:10-0400 SaO2% (BldA) [Mass fraction] 96 % II Martir Herbert Work Phone: [facility] 05-29-2023 09:10-0400 Systolic blood pressure 131 mm[Hg] II Martir Herbert Work Phone: [facility] 05-29-2023 07:30-0400 Body height 175.26 cm II Martir Herbert Work Phone: [facility] 05-29-2023 07:30-0400 Body temperature 98 [degF] II Martir Herbert Work Phone: [facility] 05-29-2023 07:30-0400 Body weight 81.64 kg II Martir Herbert Work Phone: [facility] 02-05-2023 08:47-0400 Diastolic blood pressure 80 mm[Hg] Abran OCHOA [facility] 02-05-2023 08:47-0400 Mean blood pressure 103 mm[Hg] Abran OCHOA [facility] 02-05-2023 08:47-0400 Systolic blood pressure 150 mm[Hg] Abran OCHOA [facility] 02-05-2023 08:42-0400 Blood Pressure Location Abran OCHOA [facility] 02-05-2023 08:42-0400 Diastolic blood pressure 80 mm[Hg] Abranvalentin OCHOA [facility] 02-05-2023 08:42-0400 Heart rate 53 /min Abran OCHOA [facility] 02-05-2023 08:42-0400 Systolic blood pressure 154 mm[Hg] Abran OCHOA [facility] 12-19-2022 06:51-0400 Body height 177.8 cm II Martir Herbert Work Phone: [facility] 12-19-2022 06:51-0400 Body weight 81.64 kg II Martir Herbert Work Phone: [facility] 12-04-2022 12:26-0400 Blood Pressure Location Abranvalentin OCHOA [facility] 12-04-2022 12:26-0400 Diastolic blood pressure 70 mm[Hg] Abran OCHOA [facility] 12-04-2022 12:26-0400 Heart rate 64 /min Abranvalentin OCHOA [facility] 12-04-2022 12:26-0400 Systolic blood pressure 149 mm[Hg] Abranvalentin OCHOA [facility] Encounters Encounter Date Encounter Type Care Provider Facility Start: 12-06-2023 End: 12-06-2023 ambulatory MARTIR HERBERT Not Available Start: 11-14-2023 End: 11-14-2023 ambulatory MARTIR HERBERT Not Available Start: 10-11-2023 End: 10-11-2023 ambulatory Jc MENDIOLA Facility:[facility] Start: 10-08-2023 End: 10-09-2023 ambulatory Abran OCHOA Facility:[facility] Start: 10-08-2023 End: 10-08-2023 Patient encounter procedure Abran OCHOA [facility] Start: 10-03-2023 End: 10-03-2023 ambulatory MARTIR HERBERT II Facility:[facility] Start: 09-21-2023 End: 09-22-2023 ambulatory Abran OCHOA Facility:[facility] Start: 09-21-2023 End: 09-21-2023 Patient encounter procedure Abran OCHOA [facility] Start: 09-19-2023 End: 09-19-2023 ambulatory Jc MENDIOLA Facility:[facility] Start: 09-12-2023 End: 09-13-2023 ambulatory Abran OCHOA Facility:[facility] Start: 09-12-2023 End: 09-12-2023 Patient encounter procedure Abran OCHOA [facility] Start: 09-06-2023 End: 09-07-2023 ambulatory Jc MENDIOLA Facility:[facility] Start: 09-06-2023 End: 09-06-2023 Patient encounter procedure Jc Mendiola MD Work Phone: Radiation Oncology Comment on above: Malignant neoplasm o f prostate (HCC) (Primary Dx) Start: 08-08-2023 ambulatory Abran OCHOA Facili ty:[facility] Start: 07-25-2023 Patient encounter procedure [facility] Provider [facility] Start: 07-24-2023 Telephone encounter Jc Mendiola MD Work Phone: Radiation Oncology Comment on above: Appointment Start: 07-11-2023 Patient encounter procedure Jc Mendiola MD Work Phone: [facility] Start: 07-11-2023 Radiation Oncology Note G Walter Mendiola MD Work Phone: Radiation Oncology Comment on above: Simulation Note Start: 07-11-2023 End: 07-11-2023 ambulatory Jc MENDIOLA Facility:[facility] Start: 05-29-2023 End: 05-29-2023 ambulatory Imad Asaad Facility:[facility] Start: 05-29-2023 End: 05-29-2023 Admission to same day surgery center II Martir Herbert Work Phone: [facility] Work Phone: Start: 05-29-2023 End: 05-29-2023 ambulatory II Martir Herbert Work Phone: [facility] Work Phone: Start: 05-23-2023 Patient encounter procedure [facility] Provider [facility] Start: 05-02-2023 Telephone encounter Jc Mendiola MD Work Phone: Radiation Oncology Comment on above: Constipation; Rectal Bleeding; Future Appointment Start: 02-21-2023 Patient encounter procedure [facility] Provider [facility] Start: 02-16-2023 End: 02-16-2023 ambulatory Jc MENDIOLA Facility:[facility] Start: 02-05-2023 End: 02-06-2023 ambulatory Abran OCHOA Facility:[facility] Start: 02-05-2023 End: 02-05-2023 Patient encounter procedure Abran OCHOA [facility] Start: 01-16-2023 End: 01-17-2023 ambulatory Abran OCHOA Facility:[facility] Start: 01-16-2023 End: 01-16-2023 Patient encounter procedure Abran OCHOA [facility] Start: 12-19-2022 End: 12-19-2022 ambulatory Abran Ochoa Facility:[facility] Start: 12-19-2022 End: 12-19-2022 ambulatory II Martir Herbert Work Phone: [facility] Work Phone: Start: 12-19-2022 End: 12-19-2022 Patient encounter procedure II Martir Herbert Work Phone: [facility] [place] Work Phone: Start: 12-04-2022 End: 12-05-2022 ambulatory Abran OCHOA Facility:[facility] Start: 12-04-2022 End: 12-04-2022 Patient encounter procedure Abran OCHOA [facility] Start: 10-17-2022 End: 10-18-[address] ABRAN OCHOA Facility:[facility] Start: 09-22-2022 End: 09-22-2022 Patient encounter procedure Abran OCHOA [facility] Start: 03-04-2022 End: 03-05-[address] MARTIR HERBERT Facility:[facility] Procedures Date Procedure Procedure Detail Performing Clinician Start: 09-06-2023 Brachytherapy - acti on (qualifier value) Abran OCHOA Start: 05-29-2023 Screening colonoscopy I I Martir Herbert Work Phone: Start: 12-27-2022 Transrectal biopsy o f prostate using ultrasound guidance Abran OCHOA Start: 12-19-2022 MR prostate wo/w con II Martir Herbert Work Phone: Start: 05-12-2015 Transrectal biopsy o f prostate using ultrasound guidance Abran OCHOA Start: 12-29-2014 Transrectal biopsy o f prostate using ultrasound guidance Abran OCHOA Start: 10-03-2013 Cystoscopy Abran MADISON ALESHAGeovanny Comment on above: Lt stent removal Start: 09-23-2013 Cystoscopy Abran MADISON ALESHAGeovanny Comment on above: Lt RG, Lt ureterosco [...] DTaP,Tdap,Td Vaccine (2 - Td or Tdap) [facility] Start: 12-28-2023 ambulatory Ambulatory Facility:[facility] Start: 05-29-2023 [facility] Start: 05-25-2023 Covid-19 Vaccine ( season) Covid-19 Vaccine ( season) [facility] Start: 05-25-2023 Influenza vaccination [facility] Start: 12-11-2022 COVID-19 VACCINE (5 - Pfizer series) COVID-19 VACCINE (5 - Pfizer series) [facility] Start: 09-24-2022 ADVANCE DIRECTIVE DISCUSSION ADVANCE DIRECTIVE DISCUSSION [facility] Start: 09-24-2022 DEPRESSION ASSESSMENT DEPRESSION ASS ESSMENT [facility] Start: 2006 PNEUMOCOCCAL: 65+ (1 - PCV) PNEUMOCOCCAL: 65+ (1 - PCV) [facility] Start: 2001 RSV Vaccine (1 - 1-d ose 60+ series) RSV Vaccine (1 - 1-dose 60+ series) [facility] Start: 11-24-1991 SHINGRIX VACCINE (1 of 2) LOPEZ GRIX VACCINE (1 of 2) [facility] Start: 1986 DIABETES SCREEN DIABETES SCREEN [facility] Start: 1986 Diabetes Screening Diabetes Screenin g [facility] Start: 1960 Urine microalbumin profile DTAP,TDAP,TD (1 - Tdap) [facility] Immunizations Immunization Date Immunization Notes Care Provider Alvin barker 08-13-2022 influenza virus vaccine, unspecified formulation Abran OCHOA [facility] 08-13-2022 SARS-CoV-2 (COVID-19 ) [id number] Abran OCHOA [facility] 12-18-2021 zoster vaccine recombinant Abran OCHOA [facility] 09-21-2021 zoster vaccine recombinant Abran OCHOA [facility] 09-19-2021 tetanus toxoid, redu lester diphtheria toxoid, and acellular pertussis vaccine, adsorbed Abran OCHOA [facility] 08-25-2021 influenza virus vaccine, unspecified formulation Abran OCHOA [facility] 06-25-2021 influenza virus vaccine, unspecified formulation Abran OCHOA [facility] 06-25-2021 SARS-CoV-2 (COVID-19 ) mRNA BNT-162b2 vax Abran OCHOA [facility] Comment on above: Result Comment: 2022: [id number] 11-14-2020 SARS-CoV-2 (COVID-19 ) mRNA BNT-162b2 vax Abran OCHOA [facility] Comment on above: Result Comment: 2022: [id number] 10-24-2020 SARS-CoV-2 (COVID-19 ) mRNA BNT-162b2 vax Abran OCHOA [facility] Comment on above: Result Comment: 2022: [id number] 06-28-2020 influenza virus vaccine, unspecified formulation Abran OCHOA [facility] 07-02-2019 influenza virus vaccine, unspecified formulation [employer] [facility] 07-02-2019 pneumococcal conjuga te vaccine, 13 valent Abran OCHOA [facility] 06-29-2018 influenza virus vaccine, unspecified formulation Abran OCHOA [facility] 06-21-2017 influenza virus vaccine, unspecified formulation [employer] [facility] 08-18-2015 influenza virus vaccine, unspecified formulation [employer] [facility] 06-23-2014 influenza virus vaccine, unspecified formulation Abran OCHOA [facility] 07-01-2013 influenza virus vaccine, unspecified formulation [employer] [facility] 07-01-2013 zoster vaccine, live Abran OCHOA [facility] Payers Date Payer Category Payer Self-pay 2022 Private Health Insurance [facility] INDEMNITY [id number] 2022-Present [phone] [address] [place] [address] Indemnity [id number] 2006 Medicare [id number] 1959 Medicare [id number] 1959 Private Health Insurance [id number] 1941 Unknown [id number] [id number]. 2.593 1941 Unknown [id number] 2.16.840.1.487926.3.579. 2.593 1941 Unknown [id number] 2.16.840.1.905920.3.579. 2.727 1941 Unknown [id number] 2.16.840.1.996878.3.579. 2.727 1941 Unknown [id number] 2.16.840.1.850777.3.579. 2.727 1941 Unknown [id number] 2.16.840.1.038980.3.579. 2.727 1941 Unknown [id number] 2.16.840.1.180725.3.579. 2.727 1941 Unknown [id number] 2.16.840.1.542390.3.579. 2.727 1941 Unknown [id number] 2.16.840.1.343476.3.579. 2.727 1941 Unknown [id number] 2.16.840.1.797244.3.579. 2.727 1941 Unknown [id number] 2.16.840.1.146261.3.579. 2.727 1941 Unknown [id number] 2.16.840.1.775840.3.579. 2.1259 1941 Unknown [id number] 2.16.840.1.704280.3.579. 2.1259 Unknown Insurance No Card [id number] Unknown [id number] 2.16.840.1.914087.3.579. 2.531 Unknown [id number] 2.16.840.1.186569.3.579. 2.531 Social History Date Type Detail Facility Start: 09-01-2020 End: 02-05-2023 Tobacco smoking status Never smoked tobacco (finding) [facility] Tobacco smoking status Never [facility] Start: 02-16-2023 End: 09-06-2023 Sex Assigned At Male [facility] Start: 1940 Sex Assigned At Male [facility] Start: 02-16-2023 Tobacco use and exposure Smokeless tobacco non-user [facility] Start: 02-16-2023 Alcohol intake Ex-drinker (finding) [facility] Start: 1940 Sex Assigned At Not on file [facility] Start: 02-16-2023 End: 09-06-2023 History of Social function [facility] Goals Date Patient Goal Desired Activity /State Functional Status Date Assessment Result Facility 10-08-2023 Functional Status N/A [facility] 02-05-2023 Functional Status N/A [facility] 12-04-2022 Functional Status N/A [facility] Clinical Notes 02-23-2022 to 10-11-2023 Jc Mendiola MD - 09/06/2023 3:06 PM ESTTelephone Encounter - Debra Quinn LPN - 07/25/2023 11:26 AM EDTTelephone Encounter - Debra Quinn LPN - 07/24/2023 9:54 AM EDT Note Date & Type Note Facility 10-11-2023 Note HNO ID: [id number] Author: Jc MENDIOLA MD Service: ? Author Type: Physician Type: Progress Notes Filed: 10/11/2023 09:38 Note Text: Radiation Oncology - Follow Up [...] Coffey, 61 sources, 23.67 millicurie. INTERVAL HISTORY: Doing well denies problems or concerns. PSA HISTORY: PSA. (no units) Date Value 10/08/2023 1.55 ALLERGIES Allergen Reactions Penicillins Rash Sulfa (Sulfonamide [...] use: Yes Medications to aid urination: y AUA: 5 Bowel movement frequency: 1/day Bowel movement quality: normal Androgen deprivation: Never. PHYSICAL EXAM: BP 125/67 Pulse 87 Temp 36.3 ?C (97.3 ?F) Resp 16 Wt 86 kg (189 lb 9.5 oz) SpO2 97% BMI 28.00 kg/m? KPS: 100 General Appearance: Alert and oriented. No acute distress. Rectal exam is deferred. ASSESSMENT/PLAN: Prostate adenocarcinoma, 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 Status post prostate brachytherapy implant 09/06/2023. Patient overall doing well. Good initial PSA response. Post-implant CT reviewed showing appropriate source distribution. No change or modification in either the treatment or follow-up plan based on this. Plan to see patient back in 6 months. He continues close follow-up with Dr. Ochoa. Signed by: Jc Mendiola MD cc: Martir Herbert II, MD [address] [facility] [address] [place] [address] Dr. Ochoa [facility] 10-08-2023 Hospital Discharge instructions Patient Education 10/08/2023 10:31:52 Brachytherapy for Prostate Cancer, Care After Brachytherapy for Prostate Cancer, Care After The following information offers guidance on how to care for yourself after your procedure. Your health care provider may also give you more specific instructions. If you have problems or questions, contact your health care provider. What can I expect after the procedure? After the procedure, it is common to have: Urinary symptoms. These may include: ?Trouble urinating. ?Blood in the urine or semen. ?Frequent feeling of an urgent need to urinate. Constipation, nausea, or bloating and gas. Bruising, swelling, and tenderness of the area beneath the scrotum (perineum). Tiredness (fatigue). Burning or pain in the rectum. Problems getting or keeping an erection (erectile dysfunction). After the thin, flexible urinary tube (Mendoza catheter)is removed, it is common to have: Burning when you urinate. This may last for up to 2 weeks after the catheter is removed. Trouble controlling when you urinate (incontinence). You may leak urine sometimes. Your ability to control when you urinate should improve as you heal. Follow these instructions at home: Eating and drinking Follow instructions from your health care provider about eating or drinking restrictions. Drink enough fluid to keep your urine pale yellow. Treatment area care Check your treatment area every day for signs of infection. Watch for: Redness, swelling, or pain. New drainage or blood. Some dried fluid or blood may be present. Warmth. Pus or a bad smell. Managing pain and swelling If directed, put ice on the affected area. To do this: ?Put ice in a plastic bag. ?Place a towel between your skin and the bag. ?Leave the ice on for 20 minutes at a time, 2 3 times a day. ?Be sure to remove the ice if your skin turns bright red. If you cannot feel pain, heat, or cold, you have a greater risk of damage to the area. Try not to sit directly on the perineum. A soft cushion can help with discomfort. Activity Do not lift anything that is heavier than 10 lb (4.5 kg), or the limit that you are told, until your health care provider says that it is safe. Rest as told by your health care provider. Return to your normal activities as told by your health care provider. Ask your health care provider what activities are safe for you. Most people can return to normal activities within a few days. If you were given a sedative during the procedure, it can affect you for several hours. Do not drive or operate machinery until your health care provider says that it is safe. Follow instructions from your health care provider about when it is safe for you to engage in sexual activity. Managing constipation Your procedure may cause constipation. To prevent or treat constipation, you may need to: Take ifcp-nfg-ehhzlcx or prescription medicines. Eat foods that are high in fiber, such as beans, whole grains, and fresh fruits and vegetables. Limit foods that are high in fat and processed sugars, such as fried or sweet foods. General instructions Take xtwy-vvx-vwcxgdm and prescription medicines only as told by your health care provider. Do not take baths, swim, or use a hot tub until your health care provider approves. You may take a shower and wash the perineum gently. Do not strain to have a bowel movement. Do not use any products that contain nicotine or tobacco. These products include cigarettes, chewing tobacco, and vaping devices, such as e-cigarettes. If you need help quitting, ask your health care provider. If you have permanent, low-dose brachytherapy implants: ?Limit close contact with children and women for 2 months or as told by your health care provider. This is important because of the active radiation in your prostate. ?You may set off radioactive sensors, such as at airport screenings. Ask your health care provider for a document that explains your treatment. ?You may be told to use a condom during sex for the first 2 months after low-dose brachytherapy. In rare cases, a seed can move and come out in semen. A condom keeps it from going into your partner. Keep all follow-up visits because you may need more treatment. Contact a health care provider if you: Have a fever or chills. Have any of these signs of infection in the treatment area: ?Redness, swelling, or pain that is new or gets worse. ?Fluid or blood. ?Warmth. ?Pus or a bad smell. Have no bowel movements for 3 4 days after the procedure. Have diarrhea for 3 4 days after the procedure. Develop any new symptoms, such as problems passing urine or erectile dysfunction. Have pain in your abdomen. Have more blood in your urine, have urine that is cloudy or smells bad, or have pain or burning when you urinate. Have swelling or pain in your legs. Get help right away if: You cannot urinate. You have a lot of bleeding from your rectum. You have unusual drainage coming from your rectum. You have pain in the treated area that does not go away with pain medicine or gets worse. You have severe nausea or vomiting. You have trouble breathing. Summary Talk with your health care provider about your risk of brachytherapy side effects, such as erectile dysfunction or urinary problems. If you have permanent, low-dose brachytherapy implants, limit close contact with children and women for 2 months or as told by your health care provider. You may be told to use a condom during sex for the first 2 months after low-dose brachytherapy. Keep all follow-up visits because you may need more treatment. This information is not intended to replace advice given to you by your health care provider. Make sure you discuss any questions you have with your health care provider. Document Revised: 12/07/2021 Document Reviewed: 12/07/2021 [employer] Patient Education 2022 99Presents. Follow Up Care 06/26/2023 12:00:57 With:LADAN EDWARDS, Abran Darling, URL Address: [facility] [address], [place] [address]- [phone] When: Unknown Comments:3 mos w/ PSA [facility] 10-03-2023 Note HNO ID: [id number] Author: Jc MENDIOLA MD Service: ? Author Type: Physician Type: Progress Notes Filed: 10/12/2023 11:35 Note Text: Patient: Jose Can Date:10/03/2023 [facility] Department of Radiation Oncology [facility] RADIATION ONCOLOGY POST SEED IMPLANT SIMULATION NOTE DATE OF SIMULATION: 10/03/2023 MACHINE: CT Simulator AREA:Prostate PATIENT POSITION: Supine. CONTRAST: None PROTOCOL: None CONCURRENT THERAPY: None FIXATION DEVICE: None PROCEDURE: Patient was simulated on the CT scanner and CT images of the patients pelvis obtained. ASSESSMENT/PLAN: Patient tolerated simulation procedure well. CT images were obtained on the CT simulator for the prostate post brachy therapy seed implant planning. Post planning for the permanent seed prostate brachy procedure will commence following simulation. Electronically Signed CHIRAG MENDIOLA M.D. 1:35 AM [facility] 09-19-2023 Note HNO ID: [id number] Author: Jc Mendiola MD Service: ? Author [...] ASSESSMENT/PLAN: Prostate adenocarcinoma, initial PSA 3.1, biopsy [place] score 3 + 4 = 7 (grade [...] Mendiola MD cc: Martir Herbert II, MD [address] [place] [address] No referring provider defined for this encounter. [facility] 09-06-2023 Note HNO ID: [id number] Author: Jc Mendiola MD Service: ? Author Type: Physician Type: Progress Notes Filed: 09/06/2023 3:18 PM Note Text: Date: 09/06/23 Facility: [facility] Procedure: prostate transperineal brachytherapy implant Diagnosis: Prostate [...] activity seen, results documented. Edilma Mendiola MD [facility] 09-06-2023 History of Present illness Narrative Date: 09/06/23 Facility: [facility] Procedure: prostate transperineal brachytherapy implant Diagnosis: Prostate [...] activity seen, results documented. Edilma Mendiola MD [facility] documented in this encounter [facility] 08-25-2023 Note HNO ID: [id number] Author: Jc Mendiola MD Service: ? Author Type: Physician Type: Progress Notes Filed: 09/06/2023 12:36 AM Note Text: JOSE CAN [id number] 08/25/2023 [facility] Department of Radiation Oncology [facility] RADIATION ONCOLOGY BRACHYTHERAPY TREATMENT PLANNING NOTE For [...] Chirag Mendiola M.D. / NATY 33:42 PM [facility] 07-25-2023 Miscellaneous Notes Enriqueta pt's dtr, returned my call and I [...] Debra Quinn RN documented in this encounter [facility] 07-12-2023 Note HNO ID: [id number] Author: Jc Mendiola MD Service: ? Author [...] Visit completed when applicable. Jc Mendiola MD [facility] 07-11-2023 Note HNO ID: [id number] Author: Jc Mendiola MD Service: ? Author Type: Physician Type: Progress Notes Filed: 07/12/2023 12:35 AM Note Text: JOSE CAN [id number] 07/11/2023 [facility] Department of Radiation Oncology [facility] RADIATION ONCOLOGY SIMULATION NOTE DATE OF SIMULATION: 07/11/2023 MACHINE: [employer] Focus 500 Diagnosis: 185 (Prostate Gland) AREA:Prostate PATIENT POSITION: Supine CONTRAST: None PROTOCOL: None CONCURRENT THERAPY: None FIXATION DEVICE: UTS Stabilization device by [employer]. PROCEDURE: Patient was simulated in exaggerated dorsal lithotomy position. Serial images of the prostate were acquired using TRUS and reconstructed in 3D space. These images were imported into [employer] Prostate planning system where a plan was generated. ASSESSMENT/PLAN: Patient tolerated simulation procedure well. Electronically Signed Chirag Mendiola M.D. / NATY 35:19 PM [facility] 07-11-2023 History of Present illness Narrative JOSE CAN [id number] 07/11/2023 [facility] Department of Radiation Oncology [facility] RADIATION ONCOLOGY SIMULATION NOTE DATE OF SIMULATION: 07/11/2023 MACHINE: [employer] Focus 500 Diagnosis: 185 (Prostate Gland) AREA:Prostate PATIENT POSITION: Supine CONTRAST: None PROTOCOL: None CONCURRENT THERAPY: None FIXATION DEVICE: UTS Stabilization device by [employer]. PROCEDURE: Patient was simulated in exaggerated dorsal lithotomy position. Serial images of the prostate were acquired using TRUS and reconstructed in 3D space. These images were imported into [employer] Prostate planning system where a plan was generated. ASSESSMENT/PLAN: Patient tolerated simulation procedure well. Electronically Signed Chirag Mendiola M.D. / NATY 35:19 PM documented in this encounter [facility] 05-29-2023 Procedure note [facility] 05-03-2023 Miscellaneous Notes Patients daughter [...] colonoscopy was done per Dr Franco at [facility] in 2016. It was normal. Dr Mendiola-- please advise. Nichelle Elkins RN documented in this encounter [facility] 02-16-2023 Note HNO ID: [id number] Author: Jc Mendiola MD Service: ? 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 [facility] 02-05-2023 Hospital Discharge instructions Patient Education 02/05/2023 [...] under a microscope. This is called the Coopersburg score and the total score can range from 6 10, indicating how likely it is that the cancer will spread (metastasize) to other parts of the body. The higher the score, the greater the likelihood that the cancer will spread. [place]op[place]burg 6 or lower: This indicates that the cancer cells look similar to normal prostate cells (well differentiated). Alpa 7: This indicates that the cancer cells look somewhat similar to normal prostate cells (moderately differentiated). [place] 8, 9, or 10: This indicates that [...] stress of having cancer. General instructions Take qqts-txu-wmsqvnc and prescription medicines only as told by your health care provider. If you have to go to the hospital, notify your cancer specialist (oncologist). Keep all follow-up visits. This is important. Where to find more information [place] [employer]: www.cancer.org [place] [employer] Oncology: www.cancer.net National Cancer [place]: www.cancer.gov Contact a health care provider if: [...] provider. Document Revised: 12/07/2021 Document Reviewed: 12/07/2021 [employer] Patient Education 2022 99Presents. Follow Up Care 01/04/2023 12:26:51 With:LADAN EDWARDS, Abran Darling, URL Address: [facility] [address] [place] [address] [phone] When:Within 6 Month(s) Comments:Will refer to Dr. Mendiola [facility] 01-16-2023 Note [id number]:[email or web address] [facility] 01-16-2023 Hospital Discharge instructions Patient Education 01/16/2023 [...] for your post-operative appointment in 1-2 weeks [phone] or [phone] Follow Up Care 01/04/2023 11:45:40 With:Abran OCHOA Address: [facility] [address] [place] [address]- Business (1) When: Unknown Comments:Keep scheduled appointment [facility] 12-04-2022 Hospital Discharge instructions Patient Education [...] urethra. Follow these instructions at home: Take htwy-sbj-bdlcjux and prescription medicines only as told by [...] 09/10/2006 Document Revised: 08/05/2019 Document Reviewed: 10/15/2017 [employer] Patient Education 2020 99Presents. Follow Up Care 09/22/2022 08:10:59 With:Abran OCHOA MD, URL Address: [facility] [address], [place] [address]- When: Unknown [facility] 02-23-2022 Hospital Discharge instructions Follow Up Care 02/23/2022 13:31:33 With:Abran OCHOA MD, URL Address: [address] [place] [address] [place] [address]- When: Unknown [facility] Evaluation + Plan note Future Appointments Appointment Date:12/04/2022 12:15:00 PM Scheduled Provider:Abran OCHOA MD Location:[facility] Appointment Type:URO Office Visit [facility] Evaluation + Plan note Future Appointments Appointment Date:12/07/2023 08:00:00 AM Scheduled Provider:[facility]bran [facility]CHOA [facility] Visit [facility] Evaluation + Plan note Future Appointments Appointment Date:02/05/2023 08:30:00 AM Scheduled Provider:Abran OCHOA MD Location:[facility] Appointment Type:URO Office Visit Appointment Date:12/07/2023 08:00:00 AM Scheduled Provider:Abran OCHOA MD Location:[facility] Appointment Type:URO Office Visit Diagnostic Tests PendingProstate Histology ([facility]) 01/16/23 [facility] Evaluation + Plan note Future Appointments Appointment Date:12/07/2023 08:00:00 AM Scheduled Provider:Abran OCHOA MD Location:[facility] Appointment Type:URO Office Visit Diagnostic Tests PendingPSA Total 02/05/23 [facility] Evaluation + Plan note Future Appointments Appointment Date:10/08/2023 09:30:00 AM Scheduled Provider:Abran OCHOA MD Location:[facility] Appointment Type:URO Office Visit Appointment Date:12/07/2023 08:00:00 AM Scheduled Provider:Abran OCHOA MD Location:[facility] Appointment Type:URO Office Visit [facility] Evaluation + Plan note Future Appointments Appointment Date:12/28/2023 08:00:00 AM Scheduled Provider:Abran OCHOA MD Location:[facility] Appointment Type:URO Office Visit Diagnostic Tests PendingPSA Total 10/08/23 [facility] Evaluation note No assessment inform ation available [facility] Work Phone: Evaluation note Diagnosis Rectal bleeding- Primary Hemorrhage of rectum and anus Constipation, unspecified constipation type Prostate cancer (HCC) Malignant neoplasm of prostate [facility] Malignant neoplasm of prostate (HCC)- Primary Malignant neoplasm of prostate [facility] Author Juan Jiang [facility] May 29, 2023 8:21am Note Date/Time May 29, 2023 8:21am [facility] [address] [place] [address] Gastroenterology H&P Signed Patient: Jose Can MR#: [id number] : 1940 Acct:[id number] Age/Sex: 82 / M Adm Date: 3 Loc: Room: Type: [facility] Attending Dr: Juan Jiang MD Copies to: [...] by Juan Jiang MD> 05/29/23820 [facility] Work Phone: Hospital course Narrative No data available for this section [facility] Hospital Discharge instructions Additional Instructions DISCHARGE INSTRUCTIONS [...] years. -Follow up with PCP. -Office number [phone]. [facility] Work Phone: Hospital Discharge instructions No data available for this section [facility] progress note No data available for this section [facility] reason for referral (narrative) , Refer to Dr. Mendiola for [facility] Referred by: Abran OCHOA MD [facility] Summary Purpose Family History No Family History [...] section and content) DATE CREATED AUTHOR 09/22/2021 [facility] dical Specialist DATE CREATED AUTHOR AUTHOR'S ORGANIZ ATION 10/18/2022 [facility] [place] [facility] DATE CREATED AUTHOR AUTHOR'S ORGANIZ ATION 06/05/2023 [facility] DATE CREATED AUTHOR AUTHOR'S ORGANIZ ATION 10/14/2023 [facility] DATE CREATED AUTHOR AUTHOR'S ORGANIZ ATION 11/02/2023 [facility] DATE CREATED AUTHOR AUTHOR'S ORGANIZ ATION 12/08/2023 [facility] dical Specialists EPIC Patient Care team informatio n (unrecognized section and content) Team Status: Active Member Role Status Dates Martir Herbert II MD Primary Care Provider Active Team Status: Inactive Member Role Status Dates Martir Herbert II MD Primary Care Provider Active Abran Ochoa MD Attending Provider Active 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 Relationship Specialty Start Date End Date Martir Herbert II [address] [facility] [address] [place] [address] PCP - General Internal Medicine 02/06/23 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 Relationship Specialty Start Date End Date Martir Herbert II, MD [address] [facility] [address] [place] [address] PCP - General Internal Medicine 02/06/23 Team Status: Inactive Member Role Status Dates Martir Herbert II MD Primary Care Provider Active Juan Jiang MD Attending Provider Active 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 Relationship Specialty Start Date End Date Martir Herbert II, MD [address] [facility] [address] [place] [address] PCP - General Internal Medicine 02/06/23 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 Relationship Specialty Start Date End Date Martir Herbert II, MD [address] [place] [address] [place] [address] PCP - General Internal Medicine 02/06/23 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 Relationship Specialty Start Date End Date Martir Herbert II, MD [address] [place] [address] [place] [address] PCP - General Internal Medicine 02/06/23 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 Relationship Specialty Start Date End Date Martir Herbert II, MD [address] [facility] [address] [place] [address] PCP - General Internal Medicine 02/06/23 Goals [...] or prosecute any alcohol or drug abuse patient.[facility] the event this information is protected by the Federal Confidentiality of Alcohol and Drug Abuse Patient Records regulations: The Federal rules restrict any use of the information to criminally investigate or prosecute any alcohol or drug abuse patient.[facility] the event this information is protected by the Federal Confidentiality of Alcohol and Drug Abuse Patient Records regulations: The Federal rules restrict any use of the information to criminally investigate or prosecute any alcohol or drug abuse patient.[facility] the event this information is protected by the Federal Confidentiality of Alcohol and Drug Abuse Patient Records regulations: The Federal rules restrict any use of the information to criminally investigate or prosecute any alcohol or drug abuse patient.[facility] the event this information is protected by the Federal Confidentiality of Alcohol and Drug Abuse Patient Records regulations: The Federal rules restrict any use of the information to criminally investigate or prosecute any alcohol or drug abuse patient.[facility] the event this information is protected by the Federal Confidentiality of Alcohol and Drug Abuse Patient Records regulations: The Federal rules restrict any use of the information to criminally investigate or prosecute any alcohol or drug abuse patient.[facility] the event this information is protected by the Federal Confidentiality of Alcohol and Drug Abuse Patient Records regulations: The Federal rules restrict any use of the information to criminally investigate or prosecute any alcohol or drug abuse patient.[facility] Reason for Visit (unrecogniz ed section [...] BE BASED ON THE PRIMARY CLINICAL RECORDS. [facility] [employer] [facility]. provides no warranty or guarantee of the accuracy or completeness of information in this document.
--- NOTE | 2023-12-11 14:50 | CT_ITS ---
The [address] [address] Patient Name: YVONNE CAN MRN: [id number] date: 1940 Sex: M Assigned Patient Location: [place] Current Patient Location: [place] Accession/Order Number: [id number] Exam Date: 12/11/2023 14:55 Report Date: 12/11/2023 17:50 At the request of: TOSHIA WITT Procedure: CT head/brain wo con EXAM: CT head/brain wo con HISTORY: vision changes H53.9 COMPARISON: None. TECHNIQUE: Axial CT scans through the head were obtained without IV contrast administration. Dose reduction techniques were achieved by using: automated exposure control and/or adjustment of mA and /or kV according to patient size and/or use of iterative reconstruction technique. FINDINGS: There is no evidence of acute intracranial hemorrhage or abnormal extra-axial fluid collection. No mass effect or midline shift is seen. There is no evidence of large acute territorial infarction. There is no hydrocephalus. The cortical sulci and ventricular system are within normal limits. To the limit of CT, the posterior fossa appears unremarkable. There are mild atherosclerotic calcifications of anterior and posterior circulations. No definite acute fracture is identified. Soft tissues are unremarkable. The visualized orbits show no abnormality. There is partially visualized small air-fluid level within the right maxillary sinus. Partial opacifications of ethmoid air cells are seen. Mastoid air cells are clear. CT/CT head/brain wo con IMPRESSION: No CT evidence of acute intracranial abnormality. Small air-fluid level within right maxillary sinus, consistent with acute sinusitis. Electronically authenticated by: JENNIFER GR Date: 12/11/2023 17:50
== END 2023-12-11 13:48 | disposition home or self-care (01) ==
LOC: US 13:47
PROVIDERS: PCP Internal Medicine; Visit Provider Internal Medicine
DX: H53.9 Unspecified visual disturbance (principal); R51.9 Headache, unspecified; R42 Dizziness and giddiness; J01.90 Acute sinusitis, unspecified
CPT/HCPCS: 70450; 93880

== ENCOUNTER 2023-12-11 14:37 | Outpatient (OUT) | payer MEDICARE, OTHER, SELFPAY ==
[2023-12-11 15:11] LABS: C Reactive Protein 8.16 mg/dL (<=0.50)
[2023-12-11 15:14] LABS: Erythrocyte Sedimentation Rate 87 mm/hr (<=20)
== END 2023-12-11 14:38 | disposition home or self-care (01) ==
LOC: LAB 14:38
PROVIDERS: PCP Internal Medicine; Visit Provider Physician Assistant
DX: R51.9 Headache, unspecified (principal)
CPT/HCPCS: 36415; 85652; 86140

== ENCOUNTER 2023-12-24 07:33 | Outpatient (OUT) | payer MEDICARE, OTHER, SELFPAY ==
--- OUTSIDE RECORDS SUMMARY | 2023-12-24 07:38 | XMS_ITS | CCD ---
Author Organization [facility] Care Team Providers Care As[employer]er [employer] Name Role Phone MARTIR HERBERT Primary Care Physician DR MARTIR HERBERT Admitting Unavailable KEON, DR POPE Primary Care Unavailable KEON, DR POPE Consulting Unavailable KEON, DR POPE Attending Unavailable OCHOA, DR OSULLIVAN Attending Unavailable HERBERT, DR POPE Primary Care Unavailable LADAN, DR OSULLIVAN Admitting Unavailable LADAN, DR OSULLIVAN Consulting Unavailable MANGO Herbert Primary Care Provider MD Abran Ochoa Attending Provider [phone] Martir Herbert II Primary Care Provider Keon COBIAN MD, Daniel B Primary Care Provider MANGO Herbert Primary Care Provider MD Juan Jiang Attending Provider Jc MENDIOLA Attending Unavailable MARTIR HERBERT II Primary Care Unavailable Jc MENDIOLA Attending Unavailable MARTIR HERBERT II Primary Care Unavailable Jc MENDIOLA Attending Unavailable MARTIR HERBERT II Primary Care Unavailable ABRAN OCHOA Referring Unavailable Jc MENDIOLA Attending Unavailable MARTIR HERBERT II Primary Care Unavailable MARTIR HERBERT II Primary Care Unavailable Jc MENDIOLA Attending Unavailable MARTIR HERBERT II Primary Care Unavailable OCHOAAbran R Attending Unavailable OCHOA, Abran R Attending Unavailable OCHOA, Abran R Admitting Unavailable OCHOA, Abran R Referring Unavailable OCHOA, Abran R Attending Unavailable OCHOA, Abran R Attending Unavailable OCHOA, Abran R Attending Unavailable OCHOA, Abran R Attending Unavailable OCHOA, Abran R Attending Unavailable OCHOA, Abran R Attending Unavailable OCHOA, Abran R Attending Unavailable Keon II Martir Primary Care Provider MD Armani Kelly Attending Provider MARTIR HERBERT Attending Unavailable MARTIR HERBERT Attending Unavailable MARTIR HERBERT Attending Unavailable Martir Herbert Primary Care Unavailable Armani Kelly Admitting Unavailable Armani Kelly Attending Unavailable Asaad, Imad Admitting Unavailable Asatrinidad Imad Attending Unavailable Martir Herbert Primary Care Unavailable Allergies Allergy Classification Reported Allergen(s) Allergy Type Date of Onset Reaction(s) Facility (8 sources) Penicillin; Translations: [penicillin] Drug Allergy Unknown (qualifier value) [facility] (8 sources) Sulfonamides; Translations: [sulfonamides] Drug allergy Unknown (qualifier value) [facility] (5 sources) Penicillins; Translations: [PENICILLINS] Drug allergy (disorder) 3 Hives [facility] (1 source) Sulfonamides (Antibiotic) Drug allergy (disorder) 3 [facility] (7 sources) Penicillins Drug Allergy 3 [facility] (10 sources) Sulfonamides (Antibiotic); Translations: [SULFA (SULFONAMIDE ANTIBIOTICS)] Drug Allergy 3 [facility] (1 source) Penicillins Drug allergy (disorder) 4 [facility] (1 source) Sulfonamides (Antibiotic) Drug allergy (disorder) 4 [facility] Medications Current Medications Medication Drug Class(es) Dates Sig (Normalized) Sig (Original) acetaminophen 325 mg / HYDROcodone bitartrate 7.5 mg oral tablet (1 source) Opioid Agonist Start: 01-04-2023 take 1 tablet by mouth once, then take 1 tablet by mouth every hour [place] 325 mg-7.5 mg oral tablet 1 tab(s), Oral, Once, 1 tab(s), Refill(s) 0, Take 1 hour prior to procedure, [facility]pharm[facility] #[id number], 175, cm, 12/04/22 12:29:00 EDT, Height/Length Dosing, 89, kg, 12/04/22 12:29:00 EDT, Weight Dosing Start Date: 01/04/23 Status: Ordered aspirin 81 mg delayed release oral tablet (10 sources) Platelet Aggregation Inhibitor, Nonsteroidal Anti-inflammatory Drug Start: 05-29-2023 take 1 tablet by mouth once daily Aspirin (Aspir-81) 81 mg Tablet,Delayed Release (Dr/Ec) Active 81 MG PO Daily May 29, 2023 12:00am Comment on above: Take 81 mg by mouth once daily. Lactobacillus Combination No.4 (Probiotic) 3 billion cell Capsule (3 sources) Start: 05-29-2023 take 3 capsules by mouth once daily Lactobacillus Combination No.4 (Probiotic) 3 billion cell Capsule Active 3000 MMU CELLS PO Daily May 29, 2023 12:00am administer with a meal lisinopril 10 mg oral tablet (17 sources) Angiotensin Converting Enzyme Inhibitor Start: 01-05-2023 take 10 mg by mouth once daily Lisinopril Active 10 MG PO Daily May 29, 2023 12:00am Start: 10-28-2019 Co Lisinopril Refills(s) 0 Start Date: 10/28/19 Status: Ordered omega-3 acid ethyl esters (snf) 1000 mg oral capsule (10 sources) Start: 01-05-2023 take 1 g by mouth once daily [place]-3 Acid Ethyl Esters Active 1 GM PO Daily May 29, 2023 12:00am predniSONE 20 mg oral tablet (2 sources) Start: 12-18-2023 take 60 mg by mouth once daily Prednisone Active 60 MG PO Daily December 18, 2023 12:00am Start: 12-18-2023 Prednisone Act vikki 20 MG PO December 18, 2023 12:00am simvastatin 20 mg oral tablet (17 sources) HMG-CoA Reductase Inhibitor Start: 01-05-2023 take 20 mg by mouth once daily Simvastatin Active 20 MG PO Daily May 29, 2023 12:00am Start: 10-28-2019 simvastatin Re fills(s) 0 Start Date: 10/28/19 Status: Ordered Vit D3-Vit K2-Idalou [place] Ext (3 sources) Start: 05-29-2023 take 1 capsule by mouth once daily Vit D3-Vit K2-Idalou [place] Ext Active 25 CAP PO Daily May 29, 2023 12:00am Vitamins A,C,T-Ewae-Mmoead (Preservision Areds) 4,296 mcg-226 mg-90 mg capsule (2 sources) Start: 12-18-2023 take 1 capsule by mouth twice daily Vitamins A,C,E-Zccw-Flqtux (Preservision Areds) 4,296 mcg-226 mg-90 mg capsule Active 1 CAP PO Twice daily December 18, 2023 12:00am Completed/Discontinued Medications Medication Drug Class(es) [...] Active Comment on above: Take by mouth. OTC PRODUCT (7 sources) OTC PRODUCT Eye and vision supplement 0 Active Comment on above: Eye and vision suppl ement Polyethylene Glycols (7 sources) polyethylene gly col 3350 (CLEARLAX ORAL) Take by mouth. 0 Active Comment on above: Take by mouth. Problems Problem Classification Problem Date Documented Da [...] specific antigen [PSA]] Onset: 10-17-2022 09-01-2020 Episodic Systemic lupus erythematosus and connective tissue disorders (2 sources) Temporal arteritis; 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] 12-18-2023 Chronic Unclassified (1 source) Encounter for screening for malignant neoplasm of colon; Translations: [Encounter for screening for malignant neoplasm of colon] Onset: 05-29-2023 Results Test Name Value Interpretation Reference Range Facil ity Anisocytosis LM Ql (Bld)Orde red By: Arden Marin on 12-19-2023 Anisocytosis Ql (Bld) Slight [facility] Basic Metabolic Panelon 11-23 Anion gap [Moles/Vol] 9.1 mmol/L Normal 6.0-15.0 [facility] Comment on above: Performed By: #### S CAN CBC, BMP #### [facility] [address] [place] [address] [place] Calcium [Mass/Vol] 8.5 mg/dL Low 8.6-10.3 [facility] Comment on above: Performed By: #### S CAN CBC, BMP #### [facility] [address] [place] [address] [place] Chloride [Moles/Vol] 103 mmol/L Normal 98-107 [facility] Comment on above: Performed By: #### S CAN CBC, BMP #### [facility] [address] [place] [address] [place] CO2 [Moles/Vol] 26.0 mmol/L Normal 21.0-31.0 [facility] Comment on above: Performed By: #### S CAN CBC, BMP #### [facility] [address] [place] [address] [place] Creatinine [Mass/Vol] 0.74 mg/dL Normal 0.70-1.30 [facility] Comment on above: Performed By: #### S CAN CBC, BMP #### [facility] [address] [place] [address] [place] Creatinine Clr Calc Pharmacy 78.34 Normal [facility] Comment on above: Result Comment: PERF ORMED BY: [facility] [address] [place] [address] PATHOLOGIST CAR MANAGER CAREN DALEY M.D. Performed By: #### S CAN CBC, BMP #### [facility] [address] [place] [address] [place] GFR/1.73 sq M.predicted MDRD (S/P/Bld) [Vol rate/Area] mL/min/{1.73_m2} Normal [facility] Comment on above: Performed By: #### S CAN CBC, BMP #### [facility] [address] Glucose [Mass/Vol] 88 mg/dL Normal 70-100 [facility] Comment on above: Result Comment: [facility] Glucose Reference Range is dependent on time and content of last meal. Glucose of more than 200 mg/dL in a nonstressed, ambulatory subject supports the diagnosis of Diabetes Mellitus. ADA recommended reference range Performed By: #### S CAN CBC, BMP #### [facility] [address] Potassium [Moles/Vol] 4.1 mmol/L Normal 3.5-5.1 [facility] Comment on above: Performed By: #### S CAN CBC, BMP #### [facility] [address] Sodium [Moles/Vol] 134 mmol/L Low 136-145 [facility] Comment on above: Performed By: #### S CAN CBC, BMP #### [facility] [address] [place] [address] [place] Urea nitrogen [Mass/Vol] 23 mg/dL Normal 7-25 [facility] Comment on above: Performed By: #### S CAN CBC, BMP #### [facility] [address] [place] [address] [place] Basophils Auto (Bld) [#/Vol] Ordered By: Arden Marin on 12-19-2023 Basophils (Bld) [#/Vol] 0.1 10*3/uL 0.0-0.2 [facility] Basophils/100 WBC Auto (Bld) Ordered By: Arden Marin on 12-19-2023 Basophils/100 WBC (Bld) 0.4 % . [facility] Calcium [Mass/volume] in Ser um or PlasmaOrdered By: Arden Marin on 12-19-2023 Calcium [Mass/Vol] 8.5 mg/dL 8.6-10.3 [facility] Carbon dioxide, total [Moles /volume] in Serum or PlasmaOrdered By: Arden Marin on 12-19-2023 CO2 [Moles/Vol] 26.0 mmol/L 21.0-31.0 [facility] Chloride [Moles/volume] in S jerry or PlasmaOrdered By: Arden Marin on 12-19-2023 Chloride [Moles/Vol] 103 mmol/L 98-107 [facility] Creatinine [Mass/volume] in Serum or PlasmaOrdered By: Arden Marin on 12-19-2023 Creatinine [Mass/Vol] 0.74 mg/dL 0.70-1.30 [facility] ECG 12 lead ECGon 12-19-2023 ECG 12 lead ECG [facility] [place] [address] Electrocardiograph Report Signed Patient: Jose Can MR#: [id number] : 1940 Acct:[id number] Age/Sex: 83 / M ADM Date: 12/19/23 Loc: [place] Room: Type: [facility] Attending Dr: Armani Kelly MD Ordering Provider: Arden Marin Jr, MD Date of Service: 12/19/23 ECG/ECG 12 lead ECG: pre-op rm 7 Copies to: Test Reason : Blood Pressure : / mmHG Vent. Rate : 047 BPM Atrial Rate : 047 BPM P-R Int : 220 ms QRS Dur : 102 ms QT Int : 466 ms P-R-T Axes : 055 076 076 degrees QTc Int : 412 ms Sinus bradycardia with 1st degree AV block Otherwise normal ECG No previous ECGs available Confirmed by CAROLA EDWARDS FACABRAN Cook ([id number]) on 12/19/2023 6:51:43 AM Referred By: Electronically Signed By:ABRAN SRIVASTAVA MD FAC Transcribed By: MUS Signed By Pal Srivastava MD 12/19/23 0651 [facility] Eosinophils Auto (Bld) [#/Vo l]Ordered By: Arden Mrain on 12-19-2023 Eosinophils (Bld) [#/Vol] 0.1 10*3/uL 0.0-0.45 [facility] Eosinophils/100 WBC Auto (Bl d)Ordered By: Arden Marin on 12-19-2023 Eosinophils/100 WBC (Bld) 0.3 % . [facility] Erythrocyte distribution wid th Auto (RBC) [Ratio]Ordered By: Arden Marin on 12-19-2023 Erythrocyte distribution width (RBC) [Ratio] 13.9 % 12.0-14.8 [facility] Glucose [Mass/volume] in Ser um or PlasmaOrdered By: Arden Marin on 12-19-2023 Glucose [Mass/Vol] 88 mg/dL 70-100 [facility] Comment on above: ADA recommended refe rence rangeRandom Glucose Reference Range is dependent on time and content of last meal. Glucose of more than 200 mg/dL in a nonstressed, ambulatory subject supports the diagnosis of Diabetes Mellitus. Hematocrit Auto (Bld) [Volum e fraction]Ordered By: Arden Marin on 12-19-2023 Hematocrit (Bld) [Volume fraction] 40.8 % 38.8-50.0 [facility] Hemoglobin [Mass/volume] in BloodOrdered By: Arden Marin on 12-19-2023 Hemoglobin (Bld) [Mass/Vol] 13.4 g/dL 13.0-17.0 [facility] Isaías 12-19-2023 L Specimen: Received: 12/19/23 Status: RANDI Capellan Num: [id number] Spec Type: Surgical Subm Dr: Armani Kelly MD Tissues: A Artery Temporal- Biopsy (RT TEMPORAL ARTERY BX) Procedures: Trichrome/2, CD45/2, HE/20, Gross/Micro L4, CD20/2, CD3/2, CD68/2 Age/ Patient Sex Location Account Attending Physician Jose Can 83/M [place] [id number] Armani Kelly MD SPEC NUM: [id number] RECD: 12/19/23 STATUS: RANDI CAPELLAN NUM: [id number] FAIZAN: 12/19/[address] [facility] [address]: Armani Kelly MD ENTERED: 12/19/[address] [facility] [address]: SPEC TYPE: Surgical DEPT: S ORDERED: Trichrome/2, CD45/2, HE/20, Gross/Micro L4, CD20/2, CD3/2, CD68/2 ORDERED: Trichrome/2, CD45/2, HE/20, Gross/Micro L4, CD20/2, CD3/2, CD68/2 Pathological Diagnosis Right temporal artery biopsy: -Consistent with temporal arteritis, at least moderate degree Note: -There are patchy marked intimal thickening with severe atherosclerotic degeneration. There are also apparent patchy segmental inflammatory degenerations of the internal elastic lamina layer accompanied by chronic inflammatory cells, including mostly the histiocytes per CD68 -There are also patchy moderate chronic inflammation in the intimal and adventitial layers, including focally admixed eosinophils in the adventitia -The CD3, CD20, CD45, and CD68 with appropriate immuno controls also showing findings confirming the above interpretation. -The trichrome stain also confirming the marked collagenous thickening around the layer of internal elastic lamina. Moderate and mild fibrosis in the respective intimal and medial layers are also apparent -Continuous appropriate medical treatment is also advised Clinical Information Right temporal arteritis -------- Specimen: [id number] Received: 12/19/23 Status: RANDI Capellan Num: [id number] Spec Type: Surgical Subm Dr: Armani Kelly MD Tissues: A Artery Temporal- Biopsy (RT TEMPORAL ARTERY BX) Procedures: Trichrome/2, CD45/2, HE/20, Gross/Micro L4, CD20/2, CD3/2, CD68/2 -------- Patient: Jose Can [id number] (Continued) -------- Specimen: [id number] Received: 12/19/23 (Continued) Signed (signature on file) Mee Bush MD 12/21/23 183 -------- Specimen: [id number] Received: 12/19/23 Status: RANDI Capellan Num: [id number] Spec Type: Surgical Subm Dr: Armani Kelly MD Tissues: A Artery Temporal- Biopsy (RT TEMPORAL ARTERY BX) Procedures: Trichrome/2, CD45/2, HE/20, Gross/Micro L4, CD20/2, CD3/2, CD68/2 -------- Patient: Jose Can [id number] (Continued) -------- Specimen: [id number] Received: 12/19/23 (Continued) Gross Description Received fresh labeled with the patient's name, date of and temporal artery biopsy right is a 7.8 x 0.3 cm cabrera-pink tubular tissue with attached silver metal clips. Sectioning reveals a patent lumen. Entirely submitted in two cassettes labeled A1-A2. CPT Codes 72991 45222, [id number] -------- -------- Specimen: [id number] Received: 12/19/23 Status: RANDI Marilia Num: [id number] Spec Type: Surgical Subm Dr: Armani Kelly MD Tissues: A Artery Temporal- Biopsy (RT TEMPORAL ARTERY BX) Procedures: Trichrome/2, CD45/2, HE/20, Gross/Micro L4, CD20/2, CD3/2, CD68/2 -------- Patient: Jose Can [id number] (Continued) -------- Signed (signature on file) Mee Bush MD 12/21/23 1839 Normal [facility] Leukocytes [#/volume] correc claudia for nucleated erythrocytes in Blood by Automated counOrdered By: Arden Marin on 12-19-2023 WBC corrected for nucl RBC Auto (Bld) [#/Vol] 16.2 10*3/uL 4.1-10.5 [facility] Lymphocytes Auto (Bld) [#/Vo l]Ordered By: Arden Marin on 12-19-2023 Lymphocytes (Bld) [#/Vol] 2.9 10*3/uL 1.00-4.8 [facility] Lymphocytes/100 WBC Auto (Bl d)Ordered By: Arden Marin on 12-19-2023 Lymphocytes/100 WBC (Bld) 17.7 % . [facility] MCH Auto (RBC) [Entitic mass ]Ordered By: Arden Marin on 12-19-2023 MCH (RBC) [Entitic mass] 28.9 pg 27.5-35.2 [facility] MCHC Auto (RBC) [Mass/Vol]Or dered By: Arden Marin on 12-19-2023 MCHC (RBC) [Mass/Vol] 32.8 g/dL 32.5-35.6 [facility] MCV Auto (RBC) [Entitic vol] Ordered By: Arden Marin on 12-19-2023 MCV (RBC) [Entitic vol] 88.0 fL 83.5-101 [facility] Microcytes LM Ql (Bld)Ordere d By: Arden Marin on 12-19-2023 Microcytes Ql (Bld) [facility] Monocytes Auto (Bld) [#/Vol] Ordered By: Arden Marin on 12-19-2023 Monocytes (Bld) [#/Vol] 1.3 10*3/uL 0.0-0.8 [facility] Monocytes/100 WBC Auto (Bld) Ordered By: Arden Marin on 12-19-2023 Monocytes/100 WBC (Bld) 8.3 % . [facility] Neutrophils Auto (Bld) [#/Vo l]Ordered By: Arden Marin on 12-19-2023 Neutrophils (Bld) [#/Vol] 11.9 10*3/uL 1.8-7.7 [facility] Neutrophils/100 WBC Auto (Bl d)Ordered By: Arden Marin on 12-19-2023 Neutrophils/100 WBC (Bld) 73.3 % . [facility] No Panel InformationOrdered By: Arden Marin on 12-19-2023 Estimated GFR (CKD-EPI) > 60.0 mL/Min [facility] Creatinine Clearance (Chem 78.34 [facility] Nucleated erythrocytes [Pres ence] in Blood by Automated countOrdered By: Arden Marin on 12-19-2023 Nucleated RBC Auto Ql (Bld) 0.1 /100{WBC} 0-0.5 [facility] Ovalocyte detectionOrdered B y: Arden Marin on 12-19-2023 Ovalocytes LM Ql (Bld) Slight [facility] Platelet adequacy [Presence] in Blood by Light microscopyOrdered By: Arden Marin on 12-19-2023 Platelets LM Ql (Bld) Normal Normal [facility] Platelet mean volume Auto (B ld) [Entitic vol]Ordered By: Arden Marin on 12-19-2023 Platelet mean volume (Bld) [Entitic vol] 7.4 fL 6.6-10.1 [facility] Platelet morphology finding [Identifier] in BloodOrdered By: Arden Marin on 12-19-2023 Platelet morphology finding Nom (Bld) Normal Normal [facility] Platelets Auto (Bld) [#/Vol] Ordered By: Arden Marin on 12-19-2023 Platelets (Bld) [#/Vol] 364 10*3/uL 150-450 [facility] Platelets Large [Presence] i n Blood by Light microscopyOrdered By: Adren Marin on 12-19-2023 Platelets Large LM Ql (Bld) Slight [facility] Poikilocytosis [Presence] in Blood by Light microscopyOrdered By: Arden Marin on 12-19-2023 Poikilocytosis LM Ql (Bld) Slight [facility] Potassium [Moles/volume] in Serum or PlasmaOrdered By: Arden Marin on 12-19-2023 Potassium [Moles/Vol] 4.1 mmol/L 3.5-5.1 [facility] RBC Auto (Bld) [#/Vol]Ordere d By: Arden Marin on 12-19-2023 RBC (Bld) [#/Vol] 4.64 10*6/uL 3.90-5.60 [facility] RBC morphologyOrdered By: Kylah Marin on 12-19-2023 RBC morphology finding Nom (Bld) N/A [facility] Scan and CBCon 12-19-2023 Anisocytosis Ql (Bld) Slight Normal [facility] Comment on above: Performed By: #### S CAN CBC, BMP #### [facility] [address] [place] [address] [place] Basophils (Bld) [#/Vol] 0.1 10*3/uL Normal 0.0-0.2 [facility] Comment on above: Performed By: #### S CAN CBC, BMP #### [facility] [address] [place] [address] [place] Basophils/100 WBC (Bld) 0.4 % Normal . [facility] Comment on above: Performed By: #### S CAN CBC, BMP #### [facility] [address] [place] [id number] [place] Eosinophils (Bld) [#/Vol] 0.1 10*3/uL Normal 0.0-0.45 [facility] Comment on above: Performed By: #### S CAN CBC, BMP #### [address] Eosinophils/100 WBC (Bld) 0.3 % Normal . [facility] Comment on above: Performed By: #### S CAN CBC, BMP #### [facility] [address] Erythrocyte distribution width (RBC) [Ratio] 13.9 % Normal 12.0-14.8 [facility] Comment on above: Performed By: #### S CAN CBC, BMP #### [address] Hematocrit (Bld) [Volume fraction] 40.8 % Normal 38.8-50.0 [facility] Comment on above: Performed By: #### S CAN CBC, BMP #### [address] Hemoglobin (Bld) [Mass/Vol] 13.4 g/dL Normal 13.0-17.0 [facility] Comment on above: Performed By: #### S CAN CBC, BMP #### [address] Large Platelets Slight Normal [facility] Comment on above: Result Comment: PERF ORMED BY: [place] [address] PATHOLOGIST CAR MANAGER CAREN DALEY M.D. Performed By: #### S CAN CBC, BMP #### [address] Lymphocytes (Bld) [#/Vol] 2.9 10*3/uL Normal 1.00-4.8 [facility] Comment on above: Performed By: #### S CAN CBC, BMP #### [address] Lymphocytes/100 WBC (Bld) 17.7 % Normal . [facility] Comment on above: Performed By: #### S CAN CBC, BMP #### [address] MCH (RBC) [Entitic mass] 28.9 pg Normal 27.5-35.2 [facility] Comment on above: Performed By: #### S CAN CBC, BMP #### [facility] [address] MCV (RBC) [Entitic vol] 88.0 fL Normal 83.5-101 [facility] Comment on above: Performed By: #### S CAN CBC, BMP #### [facility] [address] [place] [address] Mean Corpuscular HGB Conc 32.8 g/dL Normal 32.5-35.6 [facility] Comment on above: Performed By: #### S CAN CBC, BMP #### [facility] [address] [place] [address] Microcytosis Slight Normal [facility] Comment on above: Performed By: #### S CAN CBC, BMP #### [address] Monocytes (Bld) [#/Vol] 1.3 10*3/uL High 0.0-0.8 [facility] Comment on above: Performed By: #### S CAN CBC, BMP #### [facility] [address] [place] [address] [place] Monocytes/100 WBC (Bld) 8.3 % Normal . [facility] Comment on above: Performed By: #### S CAN CBC, BMP #### [facility] [address] [place] [address] [place] Neutrophils (Bld) [#/Vol] 11.9 10*3/uL High 1.8-7.7 [facility] Comment on above: Performed By: #### S CAN CBC, BMP #### [facility] [address] [place] [address] [place] Neutrophils/100 WBC (Bld) 73.3 % Normal . [facility] Comment on above: Performed By: #### S CAN CBC, BMP #### [facility] [address] [place] [address] NRBC% 0.1 /100{WBC} Normal 0-0.5 [facility] Comment on above: Performed By: #### S CAN CBC, BMP #### [facility] [address] [place] [address] Ovalocytes Slight Normal [facility] Comment on above: Performed By: #### S CAN CBC, BMP #### [address] Platelet Estimate Normal Normal Normal [facility] Comment on above: Performed By: #### S CAN CBC, BMP #### [address] Platelet mean volume (Bld) [Entitic vol] 7.4 fL Normal 6.6-10.1 [facility] Comment on above: Performed By: #### S CAN CBC, BMP #### [address] Platelet Morphology Normal Normal Normal [facility] Comment on above: Performed By: #### S CAN CBC, BMP #### [address] Platelets (Bld) [#/Vol] 364 10*3/uL Normal 150-450 [facility] Comment on above: Performed By: #### S CAN CBC, BMP #### [address] Poikilocytosis Slight Normal [facility] Comment on above: Performed By: #### S CAN CBC, BMP #### [address] RBC (Bld) [#/Vol] 4.64 10*6/uL Normal 3.90-5.60 [facility] Comment on above: Performed By: #### S CAN CBC, BMP #### [address] WBC (Bld) [#/Vol] 16.2 10*3/uL High 4.1-10.5 [facility] Comment on above: Performed By: #### S CAN CBC, BMP #### [address] Serum or plasma anion gap de terminationOrdered By: Arden Marin on 12-19-2023 Anion gap [Moles/Vol] 9.1 mmol/L 6.0-15.0 [facility] Sodium [Moles/volume] in Ser um or PlasmaOrdered By: Arden Marin on 12-19-2023 Sodium [Moles/Vol] 134 mmol/L 136-145 [facility] Urea nitrogen [Mass/volume] in Serum or PlasmaOrdered By: Arden Marin on 12-19-2023 Urea nitrogen [Mass/Vol] 23 mg/dL 7-25 [facility] WBC Auto (Bld) [#/Vol]Ordere d By: Arden Marin on 12-19-2023 WBC (Bld) [#/Vol] 16.2 10*3/uL 4.1-10.5 [facility] IntraOperative Documentson 0 11-01-2023 IntraOperative Documents [id number]#1 .00TIFF Normal [facility] Consultation Noteon 10-12-19 Consultation Note [id number]#1. 00TIFF Normal [facility] CNOVon 10-11-2023 CNOV Office Visit (RADTSA ) JOSE CAN ([id number]) 1940 M Date Time Provider Department 10/11/23 [...] ASSESSMENT/PLAN: Prostate adenocarcinoma, initial PSA 3.1, biopsy Wickes score 3 + 4 = 7 (grade [...] Mendiola MD cc: Martir Herbert II, MD [address] [place] [address] Debra Anthony LPN 10/11/2023 9:38 AM Signed AUA= 5 Allergies As of Date: 10/11/2023 Noted Allergy Reaction PENICILLINS 02/16/2023 2 - Rash SULFA (SULFONAMIDE ANTIBIOTICS) 02/16/2023 2 - Rash Date Reviewed: 09/19/2023 Reviewed by: Debra Quinn LPN - Fully Assessed Primary Visit Diagnosis:Malignant neoplasm of prostate (HCC) [C61] Order(s):PSA (OUTSIDE) [5706738] Order #: [id number] PSA/PROSTSPECAG DIAG [SQPSA] Order #: [id number] FUTURE Prescriptions as of 10/11/2023 - simvastatin [...] 10/11/2023 Visit Notes: >> Debra Quinn LPN [facility] Oct 11, 2023 9:26 AM Status: Signed AUA= 5 Disposition: Return in about 6 months (around 04/10/2024). Follow-up and Disposition History for Encounter Date Provider Department Center 10/11/2023 [id number] MENDIOLA Encounter Status:Closed by Jc MENDIOLA on 10/11/23 [facility] Consultation Noteon 10-09-19 Consultation Note [id number]# 1.00TIFF [facility] ED Note-Physicianon 10-09-19 ED Note-Physician [id number]#1. 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 Take vbue-yid-izcxtme or prescription medicines. ? Eat foods that are high in fiber, such as beans, whole grains, and fresh fruits and vegetables. ? Limit foods that are high in fat and processed sugars, such as fried or sweet foods. General instructions ? Take twpi-fdi-wfwdlba and prescription medicines only as told by [...] away if: (more content not included)... Normal [facility] Urology Office/Clinic Noteon 10-08-2023 Urology Office/Clinic Note [...] 09/12/23 in our office. Then presented to [facility] ER due to inability to urinate [...] (7 mm x 4mm). TRUS/bx 01/16/23 - Wickes 6 (3+3) in 4 cores and Alpa 7 (3 +4) in 1 core. Brachytherapy [...] our office after brachytherapy. Then presented to [facility] ER due to inability to urinate after catheter removal. Bladder scan was >500mL. Dc'd home with Mendoza catheter in place. Came to our office 09/21/23 for catheter removal per approval of PRW. Reports he has not had any issues urinating since. Follow-up With When Contact Information LADAN EDWARDS, Abran Darling, URL [facility] [address], [place] [address] [phone] Additional Instructions: 3 mos w/ PSA Patient [...] hernia rep (more content not included)... Normal [facility] Comment on above: Result Comment: [...] Abran Darling Where: [facility] Normal [address] [place] [address] \.br\ Medications\.br \ What When Instructions\.b r\ Unchanged lisinopril (Co Lisinopril)\.br \ Unchanged simvastatin\.br \ Allergies\.br\ penicillin (Unknown)\.br\ sulfonamides (Unknown)\.br\ Problems\.br\ Ongoing - Any problem that you are currently receiving treatment for.\.br\ BMI 29.0-29.9,adult \.br\ BPH with obstruction/low er urinary tract symptoms\.br\ Elevated PSA\.br\ Frequent urination\.br\ [...] for choosing us for your care.\.br\ \.br\ [facility] CNOVon 09-19-2023 CNOV Office Visit (RADTSA ) JOSE CAN ([id number]) 1940 M Date Time Provider Department 09/19/23 9:15 AM Jc MENDIOLA During your visit today, we recorded the following information about you: Temperature Pulse Respiration Blood pressure 97.3 degrees 64/minute 16/minute 153/83 Weight 89.4 kg Jc Mendiola MD 09/19/2023 4:02 PM Signed Radiation Oncology - Follow Up Note PATIENT NAME: Jose Can PATIENT DIAGNOSIS: Prostate adenocarcinoma, initial PSA 3.1, biopsy Wickes score 3 + 4 = 7 (grade [...] ASSESSMENT/PLAN: Prostate adenocarcinoma, initial PSA 3.1, biopsy Wickes score 3 + 4 = 7 (grade [...] Mendiola MD cc: Martir Herbert II, MD [address] [place] [phone] No referring provider defined for this encounter. Allergies As of Date: 09/19/2023 Noted Allergy Reaction PENICILLINS 02/16/2023 2 - Rash SULFA (SULFONAMIDE ANTIBIOTICS) 02/16/2023 2 - Rash Date Reviewed: 09/19/2023 Reviewed by: Debra Quinn LPN - Fully Assessed Reason for Visit: Prostate Cancer [590] Primary Visit Diagnosis:Malignant neoplasm of prostate (HCC) [C61] Order(s):PSA/PROSTSPE CAG DIAG [SQPSA] Order #: [id number] FUTURE Prescriptions as of 09/19/2023 - simvastatin [...] for Encounter Date Provider Department Center 09/19/2023 [id number] MENDIOLA DEVIN FAYE Encounter Status:Closed by Jc MENDIOLA on 09/19/23 [facility] Ambulatory Visit Summaryon 1 11-13-2022 Ambulatory Visit Summary JOSE CAN :1940 Visit [...] EDWARDS, Abran Darling Where: [facility] [address] [place] [address]- \.br\ Medications\.br \ What When Instructions\.b r\ Unchanged lisinopril (Co Lisinopril)\.br \ Unchanged simvastatin\.br \ Allergies\.br\ penicillin (Unknown)\.br\ sulfonamides (Unknown)\.br\ Problems\.br\ Ongoing - Any problem that you are currently receiving treatment for.\.br\ BMI 29.0-29.9,adult \.br\ BPH with obstruction/low er urinary tract symptoms\.br\ Elevated PSA\.br\ Frequent urination\.br\ [...] for choosing us for your care.\.br\ \.br\ [facility] Lab Reportson 09-07-2023 Lab Reports [id number]#1 .00TIFF Normal [facility] Operative Reporton 3 Operative Report [id number]#1 .00TIFF Normal [facility] RAD - MISCon 09-07-2023 RAD - MISC [id number]#1 .00TIFF Normal [facility] CNOVon 09-06-2023 CNOV Office Visit (RADTSA ) JOSE CAN ([id number]) 1940 M Date Time Provider Department 09/06/23 9:00 AM Jc MENDIOLA During your visit today, we recorded the following information about you: Jc Menidola MD 09/06/2023 3:18 PM Signed Date: 09/06/23 Facility: [facility] Procedure: prostate transperineal brachytherapy implant Diagnosis: Prostate [...] patient identified by name and hospital ID [email or web address]. After anesthesia administered patient placed in dorsal-lithotomy [...] activity seen, results documented. Edilma Mendiola MD [facility] Allergies As of Date: 09/06/2023 Noted Allergy [...] Encounter Status:Closed by Jc MENDIOLA on 09/06/23 [facility] Consultation Noteon 08-10-20 Consultation Note [id number]#1 .00TIFF Normal [facility] [facility] Telephone (RADTSA) JOSE CAN ([id number]) 1940 M Date Time Provider Department 07/24/23 Jc MENDIOLA During your visit today, we recorded the following information about you: Debra Quinn LPN 07/24/2023 10:01 AM Signed Christina with Dr. 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 [place] now needs to cardiac clearance and the first available appointment with Dr. Srivastava isn't until 08/06/23. Brachytherapy appointment rescheduled from [...] Status:Closed by DEBRA QUINN on 07/25/23 Normal [facility] ECG 12-Leadon 07-24-2023 ECG 12-Lead [id number]#1 .00TIFF Normal [facility] Formson 07-24-2023 Forms [id number]#1 .00TIFF Normal [facility] ECG 12-Leadon 07-20-2023 ECG 12-Lead [id number]#1 .00TIFF Normal [facility] Lab Reportson 07-20-2023 Lab Reports [id number]#1. 00TIFF Normal [facility] Lab Reports [id number] #1.00TIFF Normal [facility] Lab Reports [id number]#1. 00TIFF Normal [facility] RAD - MISCon 07-20-2023 RAD - MISC [id number]#1. 00TIFF Normal [facility] CNOVon 07-11-2023 CNOV Office Visit (RADTSA ) JOSE CAN ([id number]) 1940 M Date Time Provider Department 07/11/23 [...] Encounter Status:Closed by Jc MENDIOLA on 07/12/23 [facility] Consent for Procedure/Surger yon 06-27-2023 Consent for Procedure/Surgery [id number]# 1.00CD:127 [facility] (RADTSA) JOSE CAN ([id number]) 1940 M Date Time Provider Department 06/04/23 [...] Encounter Status:Closed by NICHELLE ELKINS on 06/04/23 [facility] 05-29-2023 L - -------- Specimen: [id number] Received: 05/29/23 Status: RANDI Capellan Num: [id number] Spec Type: Surgical Subm Dr: Juan Jiang MD Tissues: A Colon Biopsy (ASCENDING POLYP) Procedures: HE/2, Gross/Micro L4 -------- Age/ Patient Sex Location Account Attending Physician -------- Jose Can /[facility] [id number] Juan Jiang MD -------- SPEC NUM: [id number] RECD: 05/29/23 STATUS: RANDI CAPELLAN NUM: [id number] FAIZAN: 05/29/23- SUBM DR: Juan Jiang MD ENTERED: 05/29/[address]: SPEC TYPE: Surgical DEPT: S ORDERED: [...] microscopic examination confirms the diagnosis. CPT Codes 96457 -------- -------- Specimen: [id number] Received: 05/29/23 Status: RANDI Marilia Num: [id number] Spec Type: Surgical Subm Dr: Juan Jiang MD Tissues: A Colon Biopsy (ASCENDING POLYP) Procedures: HE/Josselin, Gross/Micro L4 -------- Patient: Jose Can [id number] (Continued) -------- Signed (signature on file) Kashmir Linares MD 05/31/23 1712 [facility] CNPRosa Isela 05-02-2023 CNPN Telephone (RADTSA) JOSE CAN ([id number]) 1940 M Date Time Provider Department 05/02/23 [...] colonoscopy was done per Dr Franco at [facility] in 2016. It was normal. Dr Mendiola-- [...] Dr Franco. They would like local referral (Yunier/Yris). This needs done prior to us being able to schedule his prostate seed implant surgery. 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 Normal [facility] Consultation Noteon 02-17-20 Consultation Note [id number]#1 .00CD:127 Normal [facility] Patient Educationon 02-06-20 Patient Education [...] to normal prostate cells (moderately differentiated). ? Wickes 8, 9, or 10: This indicates that [...] external be (more content not included)... Normal [facility] Progress Note-Nurseon 2022 Progress Note-Nurse PAMELLA JOSE J :1940 Visit Date:02/05/2023 Ambulatory Visit Instructions Your Diagnosis Prostate cancer Prostate nodule BPH with obstruction/lower urinary tract symptoms Elevated PSA Tests Performed Urnls Dip Stick Auto w/o Microscopy POC 76219 Your Care Team Attending Physician - LADAN EDWARDS, Abran Darling Primary Care Physician - MARTIR HERBERT MD This Is Your Medications List Contact prescribing physician if questions or concerns lisinopril (Co Lisinopril) simvastatin [Image Removed: STOP]Stop taking these medications acetaminophen-hydroco done ([place] 325 mg-7.5 mg oral tablet) Procedures Performed [...] Abran Darling Where: [facility] Normal Prostate nodule\.br\ Medications\.br \ What When Instructions\.b r\ Unchanged lisinopril (Co Lisinopril) Contact prescribing physician if questions or concerns \.br\ Unchanged simvastatin Contact prescribing physician if questions or concerns \.br\ \.br\ What How Much When Why Comments\.br\ Stop Taking acetaminophen-h ydrocodone ([place] 325 mg-7.5 mg oral tablet) 1 Tablets By Mouth Once Prostate nodule Take 1 hour prior to procedure \.br\ Test Results\.br\ Urnls Dip Stick Auto w/o Microscopy POC 96829 (02/05/2023)\.b r\ Bilirubin Urine Dipstick - Negative\.br\ Blood Urine Dipstick - Negative\.br\ Glucose Urine Dipstick - Negative\.br\ Ketones Urine Dipstick - Negative\.br\ Leukocytes Urine Dipstick - Negative\.br\ Nitrite Urine Dipstick - Negative\.br\ Protein Urine Dipstick - Negative\.br\ Specific [place] Urine Dipstick - 1.020\.br\ Urine Appearance Urine Dipstick - Clear\.br\ Urine Color Urine Dipstick - Yellow\.br\ Urobilinogen Urine Dipstick - Normal 0.2-1 EU/dl\.br\ pH Urine Dipstick - 7\.br\ Allergies\.br\ penicillin (Unknown)\.br\ sulfonamides (Unknown)\.br\ Problems\.br\ Ongoing - Any problem that you are currently receiving treatment for.\.br\ BMI 29.0-29.9,adult \.br\ BPH with obstruction/low er urinary tract symptoms\.br\ Elevated PSA\.br\ Frequent urination\.br\ [...] ? \.br\ A blood test called a prostate-specif ic antigen (PSA) test.\.br\ ? \.br\ A procedure in which a sample of tissue is taken from the prostate and checked under a microscope (prostate biopsy).\.br\ ? \.br\ An imaging test called transrectal ultrasonography .\.br\ Once the condition is diagnosed, tests will [...] that the cancer will spread.\.br\ ? \.br\ Wickes 6 or lower: This indicates that the cancer cells look similar to normal prostate cells (well differentiated) .\.br\ ? \.br\ Alpa 7: This indicates that the cancer cells look somewhat similar to normal prostate cells (moderately differentiated) .\.br\ ? \.br\ Wickes 8, 9, or 10: This indicates that the cancer cells look very different than normal prostate cells (poorly differentiated) .\.br\ How is this treated?\.br\ Treatment for this [...] testosterone, one of the male hormones, by:\ [facility] Urology Office/Clinic Noteon 02-05-2023 Urology [...] presents for appointment today with his daughter Carol. Webber. Prostate cancer (C61: Malignant neoplasm of prostate) TRUS/BX done 01/16/2023 are positive for Prostate cancer. Wickes 3+3= 6 (4 cores) and Alpa 3 [...] cons of each therapy today, and this Thayer prostate cancer book was provided. Patient given his age, and Alpa score is not a surgical candidate for prostatectomy. Patient is very active with work and is leaning toward maybe just doing Cuartelez Seeds. He will need referral to Dr. [...] Ochoa. Will refer to Dr. Mendiola for Cuartelez Seed implant in . Follow-up With When Contact Information LADAN EDWARDS, Abran Darling, ISSAC In 6 months [facility] [address] [place] [phone] Additional Instructions: Will refer to Dr. Mendiola Patient Education Prostate Cancer IChristina, personally scribed for Dr. Ochoa on 02/05/2023 09:36:02. . Documentation recorded by the dionneibe, aaron Lima, accurately reflects the services(s) I [...] biopsy of (more content not included)... Normal [facility] Comment on above: Result Comment: Elec tronically Signed By: Abran OCHOA MD\.br\Date and Time Signed: 02/05/23 09:38 EDT\.br\Electronically Co-Signed By: Christina Lima\.br\Date and Time Co-Signed: 02/05/23 09:36 EDT Prostate Histology ([facility]) on 01-29-2023 Prostate Histology Diagnosis Info Invalid Interpretation Code [facility] Comment on above: Result Comment: A:Pr ostate,Left Lateral Base:Needle Biopsy Interpretation - - Benign prostatic tissue. MicroScopic Description - B:Prostate,Left Lateral Mid:Needle Biopsy Interpretation - - Benign prostatic tissue with patchy chronic inflammation. MicroScopic Description - C:Prostate,Left Lateral [place]:Needle Biopsy Interpretation - - Benign prostatic tissue. MicroScopic Description - D:Prostate,Left Base:Needle Biopsy Interpretation - - Acinar adenocarcinoma of prostate; Wickes score 6(3+3); Tumor measures 0.5 cm in length; 25% of the core involved by tumor; 1 of 2 cores involved (see comment). MicroScopic Description - E:Prostate,Left Mid:Needle Biopsy Interpretation - - Benign prostatic tissue with patchy chronic inflammation. MicroScopic Description - F:Prostate,Left [place]:Needle Biopsy Interpretation - - Benign prostatic tissue. MicroScopic Description - G:Prostate,Right Base:Needle Biopsy Interpretation - - Acinar adenocarcinoma of prostate; Wickes score 6(3+3); Tumor measures 0.2 cm in length; 12% of the core involved by tumor; 1 of 1 core involved (see comment) MicroScopic Description - H:Prostate,Right Mid:Needle Biopsy Interpretation - - Benign prostatic tissue with patchy chronic inflammation. MicroScopic Description - I:Prostate,Right [place]:Needle Biopsy Interpretation - - Acinar adenocarcinoma of prostate; Alpa score 7(3+4); Tumor measures 0.21 cm in length; 26% of the core involved by tumor; 1 of 1 core involved (see comment). MicroScopic Description - J:Prostate,Right Lateral Base:Needle Biopsy Interpretation - - Acinar adenocarcinoma of prostate; Wickes score 6(3+3); Tumor measures 0.35 cm in length; 25% of the core involved by tumor; 1 of 1 core involved (see comment). MicroScopic Description - K:Prostate,Right Lateral Mid:Needle Biopsy Interpretation - - Benign prostatic tissue with patchy chronic inflammation. MicroScopic Description - L:Prostate,Right Lateral [place]:Needle Biopsy Interpretation - - Acinar adenocarcinoma of [...] cores 1 units cm Highest grade group: Wickes score 3+4=7, grade group 2. Highest percentage [...] The performance characteristics were determined by the [employer] francisco MD. They have not been cleared by the [place] Food and Drug Administration. The FDA has determined that such clearance or approval is not necessary. Appropriate positive and negative controls are performed and are acceptable. Electronically signed by : on: 01/29/2023 13:43:29 Performed By: #### 1 [id number] ####[facility] [id number] [place] [address] Consent for Procedure/Surger yon 01-16-2023 Consent for Procedure/Surgery [id number]#1 .00CD:127 Normal [facility] Consent for Treatmenton - Consent for Treatment [id number]#1 .00CD:127 Normal [facility] IntraOperative Documentson 0 01-16-2023 IntraOperative Documents [id number]#1 .00CD:127 Normal [facility] Main OR Intraoperative Recor don 01-16-2023 Main OR Intraoperative Record IntraOp Document Type FTURO Summary Primary Physician: Abran OCHOA MD Finalized Date/Time: 01/16/23 09:23:49 Pt. Name: RENO CANMELLISSA Savage/Sex: 1940 Male Med Rec #: [id number] Physician: Abran OCHOA MD Financial #: [id number] Pt. Type: O Room/Bed: / Admit/Disch: 01/16/23 [...] Ileana Hester Role Performed Surgeon - Primary Licensed Clinical Social Worker - Primary Scrub - Primary Time In 01/16/23 09:05:00 01/16/23 09:05:00 01/16/23 09:05:00 Time Out 01/16/23 09:27:00 01/16/23 09:27:00 01/16/23 09:27:00 Procedure PROSTATE TRANSRECTAL PROSTATE TRANSRECTAL PROSTATE TRANSRECTAL ULTRASOUND WITH BIO(.) ULTRASOUND WITH BIO(.) ULTRASOUND WITH BIO(.) Sherif wright rn orienting Last Modified By: Helga LANCE, CNOR, Helga RN, CARLENEOR, Hegla LANCE, CARLENEOR, Kacie 01/16/23 Kacie 01/16/23 Kacie 01/16/23 09:23:28 09:22:58 09:22:58 Surgical Procedures FTURO Entry 1 Procedure Description Procedure PROSTATE TRANSRECTAL Modifiers . ULTRASOUND WITH BIOPSY Surgeon Description PROSTATE TRANSRECTAL ULTRASOUND WITH BIOPSY Primary Procedure Yes Primary Surgeon Abran OCHOA MD 01/16/23 09:08:00 Stop 01/16/23 09:22:00 Anesthesia Type [...] Out Abran OCHOA MD, Verified (If Participants SANYA Partida RN, Applicable) Rolando Hester CST, Kimberly A Time [...] 09:23 SANYA Partida RN, Ruthann 01/16/23 09:23 [facility] Main OR Preoperative Recordo n 01-16-2023 Main OR Preoperative Record Holding Area Document Type FTURO Summary Primary Physician: Abran OCHOA MD Finalized Date/Time: 01/16/23 09:17:56 Pt. Name: JOSE CAN/Sex: 1940 Male Med Rec #: [id number] Physician: Abran OCHOA MD Financial #: [id number] Pt. Type: O Room/Bed: / Admit/Disch: 01/16/23 [...] No Pain Comment: na Skin Integrity Intact, [place], Warm, & Dry Vitals - EU Blood Pressure 147/71 Pulse 55 bpm Respirations 18 br/min SPO2 98 % RN Reviewed Yes Last Modified By: SANYA Partida RN, Ruthann 01/16/23 09:17:53 General Comments: temp:97.2 Finalized By: SANYA Partida RN, Ruthann Document Signatures Signed By: Atiya Ken LPN 01/16/23 08:14 SANYA Partida RN, Ruthann 01/16/23 09:17 Normal [facility] Operative Reporton Operative Report Patient: JOSE CAN Age: 82 years Sex: Male : 1940 Associated Diagnoses: None Author: Abran OCHOA MD Procedure Operative Information Details: Date/ Time: 01/16/2023 09:28:00. Pre-Op Dx: Prostate Nodule without Symptoms - N40.2. Post-Op Dx: Same. Anesthesia Type: Local, Periprostatic Nerve Block. Procedure: Transrectal Ultrasound and Transrectal Ultrasound-Guided Biopsy of the Prostate. Complications: None. Risks/Benefits/Inform ed Consent: Surgical risks, benefits, details of the [...] was taken and sent to pathology.. Normal [facility] Comment on above: Result Comment: Elec tronically Signed By: LADAN EDWARDS, Abran Carlos.[place]\Date and Time Signed: 01/16/23 09:30 EDT Patient Educationon 01-17-20 23 Patient Education Custom Transrectal Ultrasound of the [...] for your post-operative appointment in 1-2 weeks [phone] or [phone] Normal [facility] Prostate Histology ([facility]) on 01-16-2023 PH Method of Extraction Needle Biopsy Normal [facility] Comment on above: Performed By: #### 1 [id number] ####[facility] [id number] [place] [address] PH Number of Jars 2 Invalid Interpretation Code [facility] Comment on above: Performed By: #### 1 [id number] ####[facility] [address] [place] [address] PH Specimen 1 L Apx Prostate Normal [facility] Comment on above: Performed By: #### 1 [id number] ####[facility] [address] [place] [address] PH Specimen 10 R Lat Bse Prost Normal Fishe r [facility] Comment on above: Performed By: #### 1 [id number] ####[facility] [address] [place] [address] PH Specimen 11 R Lat Mid Pr 1 Normal [facility] Comment on above: Performed By: #### 1 [id number] ####[facility] [address] [place] [address] PH Specimen 12 R Mid Prost 1 Normal [facility] Comment on above: Performed By: #### 1 [id number] ####[facility] [address] [place] [address] PH Specimen 2 L Base Prostate Normal [facility] Comment on above: Performed By: #### 1 [id number] ####[facility] [address] [place] [address] PH Specimen 3 L Lat Apx Prost Normal [facility] Comment on above: Performed By: #### 1 [id number] ####[facility] [address] [place] [address] PH Specimen 4 L Lat Bse Prost Normal [facility] Comment on above: Performed By: #### 1 [id number] ####[facility] [address] [place] [address] PH Specimen 5 L Mid Prost 1 Normal [facility] Comment on above: Performed By: #### 1 [id number] ####[facility] [address] [place] [address] PH Specimen 6 L Lat Mid Pr 1 Normal [facility] Comment on above: Performed By: #### 1 [id number] ####[facility] [address] [place] [address] PH Specimen 7 R Apx Prostate Normal [facility] Comment on above: Performed By: #### 1 [id number] ####[facility] [address] [place] [address] PH Specimen 8 R Base Prostate Normal [facility] Comment on above: Performed By: #### 1 [id number] ####[facility] [address] [place] [address] PH Specimen 9 R Lat Apx Prost Normal [facility] Comment on above: Performed By: #### 1 [id number] ####[facility] [address] [place] [address] PH Type of Service Technical Only Normal [facility] Comment on above: Performed By: #### 1 [id number] ####[facility] [address] [place] [address] RAD - MRI Reporton RAD - MRI Report [id number]:127 Normal [facility] Creatinine (Bld) [Mass/Vol]O rdered By: Abran Ochoa on 12-19-2022 Creatinine [Mass/Vol] 0.9 mg/dL 0.6-1.3 [facility] Comment on above: ER/ESD physician is notified/shown all ISTAT results.Critical values may be confirmed by laboratory testing ifdeemed necessary by ER attending doctor. Ambulatory Visit Summaryon 0 12-04-2022 Ambulatory Visit Summary PAMELLA JOSE J :1940 Visit Date:12/04/2022 Ambulatory Visit Instructions Your Diagnosis BPH with obstruction/lower urinary tract symptoms Prostate nodule Tests Performed Urnls Dip Stick Auto w/o Microscopy POC 35752 Your Care Team Attending Physician - LADAN [...] Where: [facility] [address] , [place] [address]- Medications What When Instructions Unchanged lisinopril (Co Lisinopril) Contact prescribing physician if questions or concerns Unchanged simvastatin Contact prescribing physician if questions or concerns Test Results Urnls Dip Stick Auto w/o Microscopy POC 15632 (12/04/2022) Bilirubin Urine Dipstick - Negative Blood Urine Dipstick - Negative Glucose Urine Dipstick - Negative Ketones Urine Dipstick - Negative Leukocytes Urine Dipstick - Negative Nitrite Urine Dipstick - Negative Protein Urine Dipstick - Negative Specific [place] Urine Dipstick - >=1.030 Urine Appearance Urine [...] may refe (more content not included)... Normal [facility] Patient Educationon 12-05-19 Patient Education Urology Benign [...] Follow these instructions at home: ? Take [id number] and prescription medicines only as told by [...] You d (more content not included)... Normal [facility] Urology Office/Clinic Noteon 12-04-2022 Urology Office/Clinic Note [...] Abran Darling, URL [facility] [address] [place] [address]- Additional Instructions: schedule MRI Patient Education Benign [...] (12/04/22 12:25:00) (more content not included)... Normal [facility] Comment on above: Result Comment: Elec tronically Signed By: Abran OCHOA MD\.br\Date and Time Signed: 12/04/22 12:54 EDT\.br\Electronically Co-Signed By: Debi Vidal\.br\Date and Time Co-Signed: 12/04/22 12:53 EDT PSA, FREE AND TOTAL RATIOon 10-18-2022 % Free PSA 21.9 % Normal [facility] Comment on above: Result Comment: The table [...] men. Performed By: #### P SAFREE #### [facility] [address] [place] [address] Dr. Deisi Bush Prostate specific Ag [Mass/Vol] 3.1 ng/mL Normal 0.0-4.0 [facility] Comment on above: Result Comment: Cris baker ECLIA methodology. . According to the [place] [employer], Serum PSA should decrease and [...] disease. Performed By: #### P SAFREE #### [facility] [address] [place] [address] Dr. Deisi Bush PSA, Free 0.68 ng/mL Normal N/A [facility] Comment on above: Result Comment: Cris PRAJAPATI methodology. Performed By: #### P SAFREE #### [facility] [address] [place] [address] Dr. Deisi Bush CBC AUTO DIFFon 03-04-2022 BASO # 0.0 103/ul Normal 0.0-0.1 [facility] Comment on above: Performed By: #### C BC #### [facility] [address] [place] [address] Dr. Deisi Bush Basophils/100 WBC (Bld) 0.6 % Normal 0.2-2.0 [facility] Comment on above: Performed By: #### C BC #### [facility] [address] [place] [address] Dr. Deisi Bush EO # 0.5 103/ul Normal 0.0-0.7 [facility] Comment on above: Performed By: #### C BC #### [facility] [address] [place] [address] Dr. Deisi Bush Eosinophils/100 WBC (Bld) 10.2 % Critically high 0.9-7.0 [facility] Comment on above: Performed By: #### C BC #### [facility] [address] [place] [address] Dr. Deisi Bush Erythrocyte distribution width (RBC) [Ratio] 13.4 % Normal 11.0-15.0 [facility] Comment on above: Performed By: #### C BC #### [facility] [address] [place] [address] Dr. Deisi Bush Hematocrit (Bld) [Volume fraction] 42.3 % Normal 42.0-54.0 [facility] Comment on above: Performed By: #### C BC #### [facility] [address] [place] [address] Dr. Deisi Bush Hemoglobin (Bld) [Mass/Vol] 14.1 g/dL Normal 14.0-18.0 [facility] Comment on above: Performed By: #### C BC #### [facility] [address] [place] [address] Dr. Deisi Bush IG # 0.01 10e3/ul Normal 0.00-0.03 [facility] Comment on above: Performed By: #### C BC #### [facility] [address] [place] [address] Dr. Deisi Bush IG % 0.2 % Normal 0.0-0.5 [facility] Comment on above: Performed By: #### C BC #### [facility] [address] [place] [address] Dr. Deisi Bush LYMPH # 2.4 103/ul Normal 1.2-3.8 [facility] Comment on above: Performed By: #### C BC #### [facility] [address] [place] [address] Dr. Deisi Bush Lymphocytes/100 WBC (Bld) 46.5 % Normal 20.5-60.0 [facility] Comment on above: Performed By: #### C BC #### [facility] [address] [place] [address] Dr. Deisi Bush MANUAL DIFF REQ NO Normal [facility] Comment on above: Performed By: #### C BC #### [facility] [address] [place] [address] Dr. Deisi Bush MCH (RBC) [Entitic mass] 30.5 pg Normal 25.9-34.0 [facility] Comment on above: Performed By: #### C BC #### [facility] [address] [place] [address] Dr. Deisi Bush MCHC (RBC) [Mass/Vol] 33.3 g/dL Normal 29.9-35.2 [facility] Comment on above: Performed By: #### C BC #### [facility] [address] [place] [address] Dr. Deisi Bush MCV (RBC) [Entitic vol] 91.4 fL Normal 80.0-94.0 [facility] Comment on above: Performed By: #### C BC #### [facility] [address] [place] [address] Dr. Deisi Bush MONO # 0.6 103/ul Normal 0.3-0.8 [facility] Comment on above: Performed By: #### C BC #### [facility] [address] [place] [address] Dr. Deisi Bush Monocytes/100 WBC (Bld) 10.6 % Normal 1.7-12.0 [facility] Comment on above: Performed By: #### C BC #### [facility] [address] [place] [address] Dr. Deisi Bush NEUT # 1.7 103/ul Normal 1.4-6.5 [facility] Comment on above: Performed By: #### C BC #### [facility] [address] [place] [address] Dr. Deisi Bush Neutrophils/100 WBC (Bld) 31.9 % Critically low 43.0-75.0 [facility] Comment on above: Performed By: #### C BC #### [facility] [address] [place] [address] Dr. Deisi Bush Platelet mean volume (Bld) [Entitic vol] 9.2 fL Critically low 9.5-13.5 [facility] Comment on above: Performed By: #### C BC #### [facility] [address] [place] [address] Dr. Deisi Bush PLT 219 103/ul Normal 150-450 [facility] Comment on above: Performed By: #### C BC #### [facility] [address] [place] [address] Dr. Deisi Bush RBC 4.63 106/ul Critically low 4.70-6.10 [facility] Comment on above: Performed By: #### C BC #### [facility] [address] [place] [address] Dr. Deisi Bush WBC 5.2 103/ul Normal 4.0-11.0 [facility] Comment on above: Performed By: #### C BC #### [facility] [address] [place] [address] Dr. Deisi Bush LIPID PROFILEon 06-11-2022 CHOL-HDL RATIO NORM SEE BELOW Normal [facility] Comment on above: Result Comment: 3.3 - 4.4 LOW RISK 4.4 - 7.1 AVERAGE RISK 7.1 - 11.0 MODERATE RISK >11.0 HIGH RISK Performed By: #### T SH, LIPID, CMP #### [facility] [address] [address] [address] Deisi Bush Cholesterol [Mass/Vol] 125 mg/dL Normal <=200 [facility] Comment on above: Performed By: #### T SH, LIPID, CMP #### [facility] [address] [address] [address] Deisi Bush Cholesterol in HDL [Mass/Vol] 37 mg/dL Critically low 40-60 [facility] Comment on above: Performed By: #### T SH, LIPID, CMP #### [facility] [address] [address] [address] Deisi Bush Cholesterol in LDL [Mass/Vol] 75.6 mg/dL Normal [facility] Comment on above: Performed By: #### T SH, LIPID, CMP #### [facility] [address] [address] [address] Deisi Bush Cholesterol.total/Chol esterol in HDL [Mass ratio] 3.4 {ratio} Normal [facility] Comment on above: Performed By: #### T SH, LIPID, CMP #### [facility] [address] [address] [address] Deisi Bush HDL NORMAL > or = 60 mg/dl - LO W CARDIOVASCULAR RISK <40 mg/dl - HIGH CARDIOVASCULAR RISK Normal [facility] Comment on above: Performed By: #### T SH, LIPID, CMP #### [facility] [address] [address] [address] Deisi Bush LDL CALC NORMAL SEE BELOW Normal [facility] Comment on above: Result Comment: <100 mg/dl OPTIMAL 100 - 129 mg/dl NEAR OR ABOVE OPTIMAL 130 - 159 mg/dl BORDERLINE HIGH 160 - 189 mg/dl HIGH >190 mg/dl VERY HIGH Performed By: #### T SH, LIPID, CMP #### [facility] [address] [place] [address] Dr. Deisi Bush Triglyceride [Mass/Vol] 62 mg/dL Normal <=150 [facility] Comment on above: Performed By: #### T SH, LIPID, CMP #### [facility] [address] [place] [address] Dr. Deisi Bush VLDL CALC 12.4 mg/dL Normal [facility] Comment on above: Performed By: #### T SH, LIPID, CMP #### [facility] [address] [place] [address] Dr. Deiis Bush PROF 14(COMP METB)on 022 Albumin [Mass/Vol] 3.4 g/dL Normal 3.4-5.0 [facility] Comment on above: Performed By: #### T SH, LIPID, CMP #### [facility] [address] [place] [address] Dr. Deisi Bush Albumin/Globulin [Mass ratio] 0.9 {ratio} Normal [facility] Comment on above: Performed By: #### T SH, LIPID, CMP #### [facility] [address] [place] [address] Dr. Deisi Bush ALP [Catalytic activity/Vol] 73 U/L Normal 46-116 [facility] Comment on above: Performed By: #### T SH, LIPID, CMP #### [facility] [address] [place] [address] Dr. Deisi Bush ALT [Catalytic activity/Vol] 27 U/L Normal 16-63 [facility] Comment on above: Performed By: #### T SH, LIPID, CMP #### [facility] [address] [place] [address] Dr. Deisi Bush Anion gap [Moles/Vol] 11.6 mmol/L Normal [facility] Comment on above: Performed By: #### T SH, LIPID, CMP #### [facility] [address] [place] [address] Dr. Deisi Bush AST [Catalytic activity/Vol] 22 U/L Normal 15-37 [facility] Comment on above: Performed By: #### T SH, LIPID, CMP #### [facility] [address] [address] [address] Deisi Bush Bilirubin [Mass/Vol] 1.1 mg/dL Critically high 0.2-1.0 [facility] Comment on above: Performed By: #### T SH, LIPID, CMP #### [facility] [address] [place] [address] Dr. Deisi Bush Calcium [Mass/Vol] 8.7 mg/dL Normal 8.5-10.1 [facility] Comment on above: Performed By: #### T SH, LIPID, CMP #### [facility] [address] [place] [address] Dr. Deisi Bush Chloride [Moles/Vol] 105 mmol/L Normal 98-107 [facility] Comment on above: Performed By: #### T SH, LIPID, CMP #### [facility] [address] [place] [address] Dr. Deisi Bush CO2 [Moles/Vol] 27.6 mmol/L Normal 21.0-32.0 [facility] Comment on above: Performed By: #### T SH, LIPID, CMP #### [facility] [address] [place] [address] Dr. Deisi Bush Creatinine [Mass/Vol] 0.90 mg/dL Normal 0.70-1.30 [facility] Comment on above: Performed By: #### T SH, LIPID, CMP #### [facility] [address] [place] [address] Dr. Deisi Bush EGFR-AF MOROCCAN >60 Normal >=60 [facility] Comment on above: Performed By: #### T SH, LIPID, CMP #### [facility] [address] [place] [address] Dr. Deisi Bush EGFR-NON AF MOROCCAN >60 Normal >=60 [facility] Comment on above: Performed By: #### T SH, LIPID, CMP #### [facility] [address] [place] [address] Dr. Deisi Bush Globulin (S) [Mass/Vol] 3.6 g/dL Normal [facility] Comment on above: Performed By: #### T SH, LIPID, CMP #### [facility] [address] [place] [address] Dr. Deisi Bush Glucose [Mass/Vol] 96 mg/dL Normal 74-106 [facility] Comment on above: Performed By: #### T SH, LIPID, CMP #### [facility] [address] [place] [address] Dr. Deisi Bush Potassium [Moles/Vol] 4.2 mmol/L Normal 3.5-5.1 [facility] Comment on above: Performed By: #### T SH, LIPID, CMP #### [facility] [address] [place] [address] Dr. Deisi Bush Protein [Mass/Vol] 7.0 g/dL Normal 6.4-8.2 [facility] Comment on above: Performed By: #### T SH, LIPID, CMP #### [facility] [address] [place] [address] Dr. Deisi Bush Sodium [Moles/Vol] 140 mmol/L Normal 136-145 [facility] Comment on above: Performed By: #### T SH, LIPID, CMP #### [facility] [address] [place] [address] Dr. Deisi Bush Urea nitrogen [Mass/Vol] 16.0 mg/dL Normal 7.0-18.0 [facility] Comment on above: Performed By: #### T SH, LIPID, CMP #### [facility] [address] [place] [address] Dr. Deisi Bush Urea nitrogen/Creatinine [Mass ratio] 17.8 mg/mg Normal [facility] Comment on above: Performed By: #### T SH, LIPID, CMP #### [facility] [address] [place] [address] Dr. Deisi Bush TSHon 03-04-2022 TSH 1.259 uIU/mL Normal 0.358-3.740 [facility] Comment on above: Performed By: #### T SH, LIPID, CMP #### [facility] [address] [place] [address] Dr. Deisi Bush TSH RANGE SEE BELOW Normal [facility] Comment on above: Result Comment: <0.3 4 UIU/ml HYPERTHYROID 0.34-5.60 UIU/ml EUTHYROID >5.60 UIU/ml HYPOTHYROID Performed By: #### T SH, LIPID, CMP #### [facility] [address] [place], [place] [address] Dr. Deisi Bush Lipid Panelon 09-21-2021 Cholesterol [Mass/Vol] 181 mg/dL Normal 125-200 No [facility] Comment on above: Result Comment: Low risk < 200mg/dL Borderline risk 201-239 mg/dl High risk > or equal to 240 Performed By: #### L IPD #### [facility] [address] [place], [place] [id number] Cholesterol in HDL [Mass/Vol] 41 mg/dL Normal >40 [facility] Comment on above: Result Comment: High Cardiovascular Risk HDL <40 mg/dL Low Cardiovascular Risk HDL > or equal to 60 mg/dl Performed By: #### L IPD #### [facility] [address] [place], [place] [id number] Cholesterol in LDL [Mass/Vol] 126 mg/dL Normal [facility] Comment on above: Result Comment: LDL ATP III CLASSIFICATION LDL less than 100 mg/dl Optimal LDL 100-129 mg/dl Near or above optimal LDL 130-159 Borderline high LDL 160-189 High LDL greater than 189 mg/dl Very High Performed By: #### L IPD #### [facility] [address] [place], [place] [id number] Cholesterol in VLDL [Mass/Vol] 14 mg/dL Normal [facility] Comment on above: Performed By: #### L IPD #### [facility] [address] [place] [id number] Cholesterol.total/Chol esterol in HDL [Mass ratio] 4 {ratio} Normal [facility] Comment on above: Performed By: #### L IPD #### [facility] [address] [place], [place] [id number] Triglyceride [Mass/Vol] 72 mg/dL Normal 30-150 [facility] Comment on above: Result Comment: TRIG ATPIII CLASSIFICATIONS TRIG less than 150 mg/dl Normal TRIG 150-199 mg/dl Borderline High TRIG 200-500 mg/dl High TRIG greather than 500 mg/dl Very High Performed By: #### L IPD #### [facility] [address] [place], [place] [id number] PSA SCREEN (MEDICARE)on 08-25 TPSA 3.110 ng/mL Normal <4.000 [facility] Licensed Clinical Social Worker Comment on above: Result Comment: PSA Test Method: ECLIA/Saw e 601 Performed By: #### P SA MC #### [facility] [address] [place], [place] [id number] Vital Signs Date Time Vital Sign Value Performing Clinician Jose Enrique carpenter 12-19-2023 09:30-0400 Diastolic blood pressure 89 mm[Hg] II Martir Herbert Work Phone: [facility] 12-19-2023 09:30-0400 Heart rate 51 /min II Martir Herbert Work Phone: [facility] 12-19-2023 09:30-0400 Respiratory rate 16 /min II Martir Herbert Work Phone: [facility] 12-19-2023 09:30-0400 SaO2% (BldA) [Mass fraction] 97 % II Martir Herbert Work Phone: [facility] 12-19-2023 09:30-0400 Systolic blood pressure 165 mm[Hg] II Martir Herbert Work Phone: [facility] 12-19-2023 07:04-0400 Body height 175.26 cm II Martir Herbert Work Phone: [facility] 12-19-2023 07:04-0400 Body mass index (BMI) [Ratio] 28.8 kg/m2 II Martirheraclio Herbert Work Phone: [facility] 12-19-2023 07:04-0400 Body weight 88.45 kg II Martir Herbert Work Phone: [facility] 12-19-2023 06:22-0400 Body temperature 97.6 [degF] II Martirheraclio Herbert Work Phone: [facility] 12-18-2023 11:59-0400 Body height 175.26 cm [facility] 12-18-2023 11:59-0400 Body mass index (BMI) [Ratio] 26.6 kg/m2 [facility] 12-18-2023 11:59-0400 Body temperature 97.6 [degF] [facility] 12-18-2023 11:59-0400 Body weight 81.64 kg [facility] 12-18-2023 11:59-0400 Diastolic blood pressure 72 mm[Hg] [facility] 12-18-2023 11:59-0400 Heart rate 62 /min [facility] 12-18-2023 11:59-0400 Respiratory rate 16 /min [facility] 12-18-2023 11:59-0400 SaO2% (BldA) [Mass fraction] 98 % [facility] 12-18-2023 11:59-0400 Systolic blood pressure 120 mm[Hg] [facility] 10-08-2023 09:53-0500 Blood Pressure Location Abran OCHOA [facility] 10-08-2023 09:53-0500 Diastolic blood pressure 74 mm[Hg] Abran OCHOA [facility] 10-08-2023 09:53-0500 Heart rate 72 /min Abran OCHOA [facility] 10-08-2023 09:53-0500 Respiratory rate 16 /min Abran OCHOA [facility] 10-08-2023 09:53-0500 Systolic blood pressure 130 mm[Hg] Abran OCHOA [facility] 05-29-2023 09:10-0400 Diastolic blood pressure 67 mm[Hg] MANGO Herbert Work Phone: [facility] 05-29-2023 09:10-0400 Heart rate 51 /min II Martir Herbert Work Phone: [facility] 05-29-2023 09:10-0400 Respiratory rate 16 /min II Martir Herbert Work Phone: [facility] 05-29-2023 09:10-0400 SaO2% (BldA) [Mass fraction] 96 % II Martir Hebrert Work Phone: [facility] 05-29-2023 09:10-0400 Systolic blood pressure 131 mm[Hg] II Martir Herbert Work Phone: [facility] 05-29-2023 07:30-0400 Body height 175.26 cm II Martir Herbert Work Phone: [facility] 05-29-2023 07:30-0400 Body temperature 98 [degF] II Martir Herbert Work Phone: [facility] 05-29-2023 07:30-0400 Body weight 81.64 kg II Martir Herbert Work Phone: [facility] 02-05-2023 08:47-0400 Diastolic blood pressure 80 mm[Hg] Abran OCHOA [facility] 02-05-2023 08:47-0400 Mean blood pressure 103 mm[Hg] Abran OCHOA [facility] 02-05-2023 08:47-0400 Systolic blood pressure 150 mm[Hg] Abran OCHOA [facility] 02-05-2023 08:42-0400 Blood Pressure Location Abran OCHOA [facility] 02-05-2023 08:42-0400 Diastolic blood pressure 80 mm[Hg] Abran OCHOA [facility] 02-05-2023 08:42-0400 Heart rate 53 /min Abran OCHOA [facility] 02-05-2023 08:42-0400 Systolic blood pressure 154 mm[Hg] Abran OCHOA [facility] 12-19-2022 06:51-0400 Body height 177.8 cm II Martir Herbert Work Phone: [facility] 12-19-2022 06:51-0400 Body weight 81.64 kg II Martir Herbert Work Phone: [facility] 12-04-2022 12:26-0400 Blood Pressure Location Abran OCHOA [facility] 12-04-2022 12:26-0400 Diastolic blood pressure 70 mm[Hg] Abran OCHOA [facility] 12-04-2022 12:26-0400 Heart rate 64 /min Abran OCHOA [facility] 12-04-2022 12:26-0400 Systolic blood pressure 149 mm[Hg] Abran OCHOA [facility] Encounters Encounter Date Encounter Type Care Provider Facility Start: 12-20-2023 End: 12-20-2023 ambulatory MARTIR HERBERT Not Available Start: 12-19-2023 Non-patient / Non-visit II Domenic Herbert Work Phone: [facility] Work Phone: Start: 12-19-2023 End: 12-19-2023 ambulatory Martir Herbert Facility:[facility] Start: 12-19-2023 End: 12-19-2023 Admission to same day surgery center II Martir Herbert Work Phone: [facility] [place] Start: 12-19-2023 End: 12-19-2023 ambulatory II Martir Herbert Work Phone: [facility] Work Phone: Start: 12-18-2023 End: 12-18-2023 ambulatory [facility] Work Phone: Start: 12-18-2023 End: 12-18-2023 Patient encounter procedure [facility] Work Phone: Start: 12-06-2023 End: 12-06-2023 ambulatory MARTIR B KEON Not Available Start: 11-14-2023 End: 11-14-2023 ambulatory MARTIR HERBERT Not Available Start: 10-11-2023 End: 10-11-2023 ambulatory Jc MENDIOLA Facility:[facility] Start: 10-08-2023 End: 10-09-2023 ambulatory Abran OCHOA Facility:[facility] Start: 10-08-2023 End: 10-08-2023 Patient encounter procedure Abran OCHOA [facility] Start: 10-03-2023 End: 10-03-2023 ambulatory MARTIR Gaby KEON II Facility:[facility] Start: 09-21-2023 End: 09-22-2023 ambulatory Abran OCHOA Facility:[facility] Start: 09-21-2023 End: 09-21-2023 Patient encounter procedure [facility] OCHOA [facility] Start: 09-19-2023 End: 09-19-2023 ambulatory Jc MENDIOLA Facility:[facility] Start: 09-12-2023 End: 09-13-2023 ambulatory Abran OCHOA Facility:[facility] Start: 09-12-2023 End: 09-12-2023 Patient encounter procedure Abran OCHOA [facility] Start: 09-06-2023 End: 09-07-2023 ambulatory Jc MENDIOLA Facility:[facility] Start: 09-06-2023 End: 09-06-2023 Patient encounter procedure Jc Mendiola MD Work Phone: Radiation Oncology Comment on above: Malignant neoplasm o f prostate (HCC) (Primary Dx) Start: 08-08-2023 ambulatory Abran Darling LADAN Martel ty:[facility] Start: 07-25-2023 Patient encounter [facility] Start: 07-24-2023 Telephone encounter Jc Mendiola MD Work Phone: Radiation Oncology Comment on above: Appointment Start: 07-11-2023 Patient encounter procedure Jc Mendiola MD Work Phone: [facility] Start: 07-11-2023 Radiation Oncology Note Jc Mendiola MD Work Phone: Radiation Oncology Comment on above: Simulation Note Start: 07-11-2023 End: 07-11-2023 ambulatory Jc MENDIOLA Facility:[facility] Start: 05-29-2023 End: 05-29-2023 ambulatory Imad Asaad Facility:[facility] Start: 05-29-2023 End: 05-29-2023 Admission to same day surgery center II Martir Herbert Work Phone: [facility] Work Phone: Start: 05-29-2023 End: 05-29-2023 ambulatory II Martir Herbert Work Phone: [facility] Work Phone: Start: 05-23-2023 Patient encounter procedure [facility] Start: 05-02-2023 Telephone encounter Jc Mendiola MD Work Phone: Radiation Oncology Comment on above: Constipation; Rectal Bleeding; Future Appointment Start: 02-21-2023 Patient encounter procedure [facility] Provider Mackay [facility] Department Start: 02-16-2023 End: 02-16-2023 ambulatory Jc CHIRAG MENDIOLA Facility:[facility] Start: 02-05-2023 End: 02-06-2023 ambulatory Abran OCHOA Facility:[facility] Start: 02-05-2023 End: 02-05-2023 Patient encounter procedure Abran OCHOA [facility] Start: 01-16-2023 End: 01-17-2023 ambulatory Abran OCHOA Facility:[facility] Start: 01-16-2023 End: 01-16-2023 Patient encounter procedure Abran OCHOA [facility] Start: 12-19-2022 End: 12-19-2022 ambulatory II Martir Herbert Work Phone: [facility] Work Phone: Start: 12-19-2022 End: 12-19-2022 Patient encounter procedure II Martir Herbert Work Phone: [facility] [place] Work Phone: Start: 12-04-2022 End: 12-05-2022 ambulatory Abran OCHOA Facility:[facility] Start: 12-04-2022 End: 12-04-2022 Patient encounter procedure Abran OCHOA [facility] Start: 10-17-2022 End: 10-18-[address] ABRAN OCHOA Facility:[facility] Start: 09-22-2022 End: 09-22-2022 Patient encounter procedure Abran OCHOA [facility] Start: 03-04-2022 End: 03-05-[address] MARTIR HERBERT Facility:[facility] Procedures Date Procedure Procedure Detail Performing Clinician Start: 12-19-2023 Biopsy of temporal artery II Martir Herbert Work Phone: Start: 09-06-2023 Brachytherapy - acti on (qualifier value) Abranvalentin OCHOA Start: 05-29-2023 Screening colonoscopy I I Martir Herbert Work Phone: Start: 12-27-2022 Transrectal biopsy o f prostate using ultrasound guidance Abran OCHOA Start: 12-19-2022 MR prostate wo/w con II Martir Herbert Work Phone: Start: 05-12-2015 Transrectal biopsy o f prostate using ultrasound guidance Abran OCHOA Start: 12-29-2014 Transrectal biopsy o f prostate using ultrasound guidance Abran OCHOA Start: 10-03-2013 Cystoscopy Abran GRICELDA EDUARDOGeovanny Comment on above: Lt stent removal Start: 09-23-2013 Cystoscopy Abran GRICELDA EDUARDOGeovanny Comment on above: Lt RG, Lt ureterosco [...] DTaP,Tdap,Td Vaccine (2 - Td or Tdap) [facility] Start: 12-28-2023 ambulatory Ambulatory Facility:[facility] Start: 12-19-2023 [facility] Start: 12-19-2023 [facility] Start: 05-29-2023 [facility] Start: 05-25-2023 Covid-19 Vaccine () Covid-19 Vaccine () [facility] Start: 05-25-2023 Influenza vaccination C [facility] Start: 12-11-2022 COVID-19 VACCINE (5 - Pfizer series) COVID-19 VACCINE (5 - Pfizer series) [facility] Start: 09-24-2022 ADVANCE DIRECTIVE DISCUSSION ADVANCE DIRECTIVE DISCUSSION [facility] Start: 09-24-2022 DEPRESSION ASSESSMENT DEPRESSION ASS ESSMENT [facility] Start: 2006 PNEUMOCOCCAL: 65+ (1 - PCV) PNEUMOCOCCAL: 65+ (1 - PCV) [facility] Start: 2001 RSV Vaccine (1 - 1-d ose 60+ series) RSV Vaccine (1 - 1-dose 60+ series) [facility] Start: 11-24-1991 SHINGRIX VACCINE (1 of 2) LOPEZ GRIX VACCINE (1 of 2) [facility] Start: 1986 DIABETES SCREEN DIABETES SCREEN [facility] Start: 1986 Diabetes Screening Diabetes Screenin g [facility] Start: 1960 Urine microalbumin profile DTAP,TDAP,TD (1 - Tdap) [facility] Patient referral [facility] Work Phone: [facility] Immunizations Immunization Date Immunization Notes Care Provider Fa cility 07-31-2023 COVID-19 (PFIZER) 12Y and older II Martir Herbert Work Phone: [facility] 08-13-2022 influenza virus vaccine, unspecified formulation Abran OCHOA [facility] 08-13-2022 SARS-CoV-2 (COVID-19 ) [id number] Abran OCHOA [facility] 12-18-2021 zoster vaccine recombinant Abran OCHOA [facility] 09-21-2021 zoster vaccine recombinant Abran OCHOA [facility] 09-19-2021 tetanus toxoid, redu lester diphtheria toxoid, and acellular pertussis vaccine, adsorbed Abran OCHOA [facility] 08-25-2021 influenza virus vaccine, unspecified formulation Abran OCHOA [facility] 06-25-2021 influenza virus vaccine, unspecified formulation Abran OCHOA [facility] 06-25-2021 SARS-CoV-2 (COVID-19 ) mRNA BNT-162b2 vax Abran OCHOA [facility] Comment on above: Result Comment: 2022: [id number] 11-14-2020 SARS-CoV-2 (COVID-19 ) mRNA BNT-162b2 vax Abran OCHOA [facility] Comment on above: Result Comment: 2022: [id number] 10-24-2020 SARS-CoV-2 (COVID-19 ) mRNA BNT-162b2 vax Abran OCHOA [facility] Comment on above: Result Comment: 2022: [id number] 06-28-2020 influenza virus vaccine, unspecified formulation Abran OCHOA [facility] 07-02-2019 influenza virus vaccine, unspecified formulation Abran OCHOA [facility] 07-02-2019 pneumococcal conjuga te vaccine, 13 valent Abran OCHOA [facility] 06-29-2018 influenza virus vaccine, unspecified formulation Abran OCHOA [facility] 06-21-2017 influenza virus vaccine, unspecified formulation Abran OCHOA [facility] 08-18-2015 influenza virus vaccine, unspecified formulation Abranvalentin OCHOA [facility] 06-23-2014 influenza virus vaccine, unspecified formulation Abran OCHOA [facility] 07-01-2013 influenza virus vaccine, unspecified formulation Abran OCHOA [facility] 07-01-2013 zoster vaccine, live Abran OCHOA [facility] Payers Date Payer Category Payer Self-pay 2022 Private Health Insurance [facility] IN[employer] [id number] 2022-Present [phone] [address] [place] [address] Indemnity [id number] 2006 Medicare [id number] 1959 Medicare [id number] 1959 Private Health Insurance [id number] 1941 Unknown [id number] 2.16.840.1.004961.3.579. 2.593 1941 Unknown [id number] 2.16.840.1.976223.3.579. 2.593 1941 Unknown [id number] 2.16.840.1.085490.3.579. 2.727 1941 Unknown [id number] 2.16.840.1.553317.3.579. 2.727 1941 Unknown [id number] 2.16.840.1.147550.3.579. 2.727 1941 Unknown [id number] 2.16.840.1.674341.3.579. 2.727 1941 Unknown [id number] 2.16.840.1.847315.3.579. 2.727 1941 Unknown [id number] 2.16.840.1.544741.3.579. 2.727 1941 Unknown [id number] 2.16.840.1.674235.3.579. 2.727 1941 Unknown [id number] 2.16.840.1.154287.3.579. 2.727 1941 Unknown [id number] 2.16.840.1.263294.3.579. 2.727 1941 Unknown [id number] 2.16.840.1.457516.3.579. 2.1259 1941 Unknown [id number] 2.16.840.1.790432.3.579. 2.1259 1941 Unknown [id number] 2.16.840.1.262122.3.579. 2.1259 Unknown Insurance No Card [id number] Unknown [id number] 2.16.840.1.210570.3.579. 2.531 Unknown [id number] 2.16.840.1.491678.3.579. 2.531 Social History Date Type Detail Facility Start: 09-01-2020 End: 12-19-2023 Tobacco smoking status Never smoked tobacco (finding) [facility] Tobacco smoking status Never [facility] Start: 02-16-2023 End: 09-06-2023 Sex Assigned At Male [facility] Start: 1940 Sex Assigned At Male [facility] Start: 02-16-2023 Tobacco use and exposure Smokeless tobacco non-user [facility] Start: 02-16-2023 Alcohol intake Ex-drinker (finding) [facility] Start: 1940 Sex Assigned At Not on file C [facility] Start: 02-16-2023 End: 09-06-2023 History of Social function [facility] Goals Date Patient Goal Desired Activity /State Functional Status Date Assessment Result Facility 10-08-2023 Functional Status N/A [facility] 02-05-2023 Functional Status N/A [facility] 12-04-2022 Functional Status N/A [facility] Clinical Notes 02-23-2022 to 10-11-2023 Jc Mendiola MD - 09/06/2023 3:06 PM ESTTelephone Encounter - Debra Quinn LPN - 07/25/2023 11:26 AM EDTTelephone Encounter - Debra Quinn LPN - 07/24/2023 9:54 AM EDT Note Date & Type Note Facility 10-11-2023 Note HNO ID: [id number] Author: Jc MENDIOLA MD Service: ? Author Type: Physician Type: Progress Notes Filed: 10/11/2023 09:38 Note Text: Radiation Oncology - Follow Up Note PATIENT NAME: Jose Can PATIENT DIAGNOSIS: Prostate adenocarcinoma, initial PSA 3.1, biopsy Wickes score 3 + 4 = 7 (grade [...] Mendiola MD cc: Martir Herbert II, MD [address] [place] [address] Dr. Ochoa [facility] 10-08-2023 Hospital Discharge instructions Patient Education 10/08/2023 [...] treat constipation, you may need to: Take pbjv-iub-krypahz or prescription medicines. Eat foods that are high in fiber, such as beans, whole grains, and fresh fruits and vegetables. Limit foods that are high in fat and processed sugars, such as fried or sweet foods. General instructions Take sexn-sua-gmbtkdi and prescription medicines only as told by [...] provider. Document Revised: 12/07/2021 Document Reviewed: 12/07/2021 [employer] Patient Education 2022 mySBX. Follow Up Care 06/26/2023 12:00:57 With:LADAN EDWARDS, Abran Darling, URL Address: [facility] [address], [place] [address]- [phone] When: Unknown Comments:3 mos w/ PSA [facility] 10-03-2023 Note HNO ID: [id number] Author: Jc MENDIOLA MD Service: ? Author Type: Physician Type: Progress Notes Filed: 10/12/2023 11:35 Note Text: Patient: Jose Can Date:10/03/2023 [facility] Department of Radiation Oncology [facility] RADIATION ONCOLOGY POST SEED IMPLANT SIMULATION NOTE [...] Electronically Signed CHIRAG MENDIOLA M.D. 1:35 AM [facility] 09-19-2023 Note HNO ID: [id number] Author: Jc Mendiola MD Service: ? 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 [facility] 09-06-2023 Note HNO ID: [id number] Author: Jc Mendiola MD Service: ? Author Type: Physician Type: Progress Notes Filed: 09/06/2023 3:18 PM Note Text: Date: 09/06/23 Facility: [facility] Procedure: prostate transperineal brachytherapy implant Diagnosis: Prostate [...] activity seen, results documented. Edilma Mendiola MD [facility] 09-06-2023 History of Present illness Narrative Date: 09/06/23 Facility: [facility] Procedure: prostate transperineal brachytherapy implant Diagnosis: Prostate [...] activity seen, results documented. Edilma Mendiola MD [facility] documented in this encounter [facility] 08-25-2023 Note HNO ID: [id number] Author: Jc Mendiola MD Service: ? Author Type: Physician Type: Progress Notes Filed: 09/06/2023 12:36 AM Note Text: JOSE CAN [id number] 08/25/2023 [facility] Department of Radiation Oncology [facility] RADIATION ONCOLOGY BRACHYTHERAPY TREATMENT PLANNING NOTE For [...] Chirag Mendiola M.D. / NATY 33:42 PM [facility] 07-25-2023 Miscellaneous Notes Enriqueta pt's dtr, returned my call and I notified her that a new schedule has been mailed to [place] for his upcoming prostate seed implant and follow ups. Debra Quinn RN Christina with Dr. 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 [place] now needs to cardiac clearance and the first available appointment with Dr. Srivastava isn't until 08/06/23. Brachytherapy appointment rescheduled from 08/02/23 to 09/06/23. I left a message for [place] to call me back to notify him that we will him an updated schedule. Debra Quinn RN documented in this encounter [facility] 07-12-2023 Note HNO ID: [id number] Author: Jc Mendiola MD Service: ? Author [...] Visit completed when applicable. Jc Mendiola MD [facility] 07-11-2023 Note HNO ID: [id number] Author: Jc Mendiola MD Service: ? Author Type: Physician Type: Progress Notes Filed: 07/12/2023 12:35 AM Note Text: JOSE CAN [id number] 07/11/2023 [facility] Department of Radiation Oncology [facility] RADIATION ONCOLOGY SIMULATION NOTE DATE OF SIMULATION: 07/11/2023 MACHINE: e-Zassi Focus 500 Diagnosis: 185 (Prostate Gland) AREA:Prostate PATIENT POSITION: Supine CONTRAST: None PROTOCOL: None CONCURRENT THERAPY: None FIXATION DEVICE: UTS Stabilization device by [employer] PROCEDURE: Patient was simulated in exaggerated dorsal lithotomy position. Serial images of the prostate were acquired using TRUS and reconstructed in 3D space. These images were imported into [employer] Prostate planning system where a plan was generated. ASSESSMENT/PLAN: Patient tolerated simulation procedure well. Electronically Signed Chirag Mendiola M.D. / NATY 35:19 PM [facility] 07-11-2023 History of Present illness Narrative JOSE CAN [id number] 07/11/2023 [facility] Department of Radiation Oncology [facility] RADIATION ONCOLOGY SIMULATION NOTE DATE OF SIMULATION: 07/11/2023 MACHINE: e-Zassi Focus 500 Diagnosis: 185 (Prostate Gland) AREA:Prostate PATIENT POSITION: Supine CONTRAST: None PROTOCOL: None CONCURRENT THERAPY: None FIXATION DEVICE: UTS Stabilization device by [employer]. PROCEDURE: Patient was simulated in exaggerated dorsal lithotomy position. Serial images of the prostate were acquired using TRUS and reconstructed in 3D space. These images were imported into [employer] Prostate planning system where a plan was generated. ASSESSMENT/PLAN: Patient tolerated simulation procedure well. Electronically Signed Chirag Mendiola M.D. / NATY 35:19 PM documented in this encounter [facility] 05-29-2023 Procedure note [facility] 05-03-2023 Miscellaneous Notes Patients daughter called [...] Dr Franco. They would like local referral ([facility]). This needs done prior to us being able to schedule his prostate seed implant surgery. Thank you Nichelle Elkins, NATALIO Call placed to let Enriqueta know that [...] colonoscopy was done per Dr Franco at [facility] in 2016. It was normal. Dr Mendiola-- please advise. Nichelle Elkins RN documented in this encounter [facility] 02-16-2023 Note HNO ID: [id number] Author: Jc Mendiola MD Service: ? Author Type: Physician Type: Progress Notes Filed: 02/16/2023 10:23 AM Note Text: Radiation Oncology - Prostate Cancer New Patient/Consult Note PATIENT NAME: Jose Can PATIENT REQUESTING PROVIDER: Dr. 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 [facility] 02-05-2023 Hospital Discharge instructions Patient Education [...] the likelihood that the cancer will spread. Wickes 6 or lower: This indicates that the cancer cells look similar to normal prostate cells (well differentiated). Wickes 7: This indicates that the cancer cells [...] stress of having cancer. General instructions Take khng-tef-vbscyfo and prescription medicines only as told by your health care provider. If you have to go to the hospital, notify your cancer specialist (oncologist). Keep all follow-up visits. This is important. Where to find more information [place] [employer]: www.cancer.org [place] [employer] Clinical Oncology: www.cancer.net National Cancer Harvel: www.cancer.gov Contact a health care provider if: [...] provider. Document Revised: 12/07/2021 Document Reviewed: 12/07/2021 [employer] Patient Education 2022 mySBX. Follow Up Care 01/04/2023 12:26:51 With:LADAN EDWARDS, Abran Darling, URL Address: [facility] [address] [place] [address]- [phone] When:Within 6 Month(s) Comments:Will refer to Dr. Mendiola [facility] 01-16-2023 Note [id number]:[id number] [facility] 01-16-2023 Hospital Discharge instructions Patient [...] for your post-operative appointment in 1-2 weeks [phone] or [phone] Follow Up Care 01/04/2023 11:45:40 With:Abran OCHOA Address: [facility] [address] [place] [address]- Business (1) When: Unknown Comments:Keep scheduled appointment [facility] 12-04-2022 Hospital Discharge instructions Patient Education [...] urethra. Follow these instructions at home: Take jkkc-eym-gzbximf and prescription medicines only as told by [...] 09/10/2006 Document Revised: 08/05/2019 Document Reviewed: 10/15/2017 [employer] Patient Education 2020 [employer] Follow Up Care 09/22/2022 08:10:59 With:Abran OCHOA MD, URL Address: [facility] [address] [place] [address]- When: Unknown [facility] 02-23-2022 Hospital Discharge instructions Follow Up Care 02/23/2022 13:31:33 With:Abran OCHOA MD, URL Address: [address] [place] [address]- When: Unknown [facility] Evaluation + Plan note Future Appointments Appointment Date:12/04/2022 12:15:00 PM Scheduled Provider:[facility]an [facility] MD [facility] Office Visit [facility] Evaluation + Plan note Future Appointments Appointment Date:12/07/2023 08:00:00 AM Scheduled Provider:Abran OCHOA MD Location:[facility] Appointment Type:URO Office Visit [facility] Evaluation + Plan note Future Appointments Appointment Date:02/05/2023 08:30:00 AM Scheduled Provider:Abran OCHOA MD [facility] App[facility] Type:URO Office Visit Appointment Date:12/07/2023 08:00:00 AM Scheduled Provider:Abran OCHOA MD [facility] App[facility] Type:URO Office Visit Diagnostic Tests PendingProstate Histology (P4 Labs) 01/16/23 [facility] Evaluation + Plan note Future Appointments Appointment Date:12/07/2023 08:00:00 AM Scheduled Provider:Abran [facility]CHOA [facility] Type:URO Office Visit Diagnostic Tests PendingPSA Total 02/05/23 [facility] Evaluation + Plan note Future Appointments Appointment Date:10/08/2023 09:30:00 AM Scheduled Provider:Abran OCHOA [facility] App[facility] Type:URO Office Visit Appointment Date:12/07/2023 08:00:00 AM Scheduled Provider:Abran [facility]CHOA [facility] Type:[facility]O Office Visit [facility] Evaluation + Plan note Future Appointments Appointment Date:12/28/2023 08:00:00 AM Scheduled Provider:Abran OCHOA MD [facility] App[facility] Type:URO Office Visit Diagnostic Tests PendingPSA Total 10/08/23 [facility] Evaluation note No assessment inform ation available [facility] Work Phone: Evaluation note Diagnosis Rectal bleeding- Primary Hemorrhage of rectum and anus Constipation, unspecified constipation type Prostate cancer (HCC) Malignant neoplasm of prostate [facility] Diagnosis Malignant neoplasm of prostate (HCC)- Primary Malignant neoplasm of prostate [facility] Diagnosis Onset Date Resolution Status Temporal arteritis acute [facility] Work Phone: History and physical note Author Juan Jiang [facility] May 29, 2023 8:21am Note Date/Time May 29, 2023 8:21am [facility] [address] [place] [address] Gastroenterology H&P Signed Patient: Jose Can MR#: [id number] : 1940 Acct:[id number] Age/Sex: 82 / M Adm Date: 3 Loc: Room: Type: [facility] Attending Dr: Juan Jiang MD Copies to: [...] <Electronically signed by Juan Jiang MD> 05/29/23820 [facility] Work Phone: Hospital course Narrative No data available for this section [facility] Hospital Discharge instructions Additional Instructions DISCHARGE [...] years. -Follow up with PCP. -Office number [phone]. [facility] Work Phone: Hospital Discharge instructions No data available for this section [facility] progress note No data available for this section [facility] reason for referral (narrative) , Refer to Dr. Mendiola for [employer] Referred by: LADAN EDWARDS, Abran Darling [facility] Summary Purpose Family History No Family History Records Found Relationship Condition Age at Onset Recorded Date/T yosi father Unknown Not Specified Unknown Relationship Condition Age at Onset Recorded Date/T yosi father Unknown Heart disease Unknown Not Specified Unknown Malignant neoplasm Unknown Advance Directives No Advanced Directives Records Found Advance Directive Response Recorded Date/ Time Advance Directives No December 06, 2 023 8:46am Chief Complaint and Reason for Visit Chief Complaint N40.2 Chief Complaint Screening Chief Complaint REF BY JAY GOLDEN FOR TEMPORAL ARTERITIS Chief Complaint REF BY JAY GOLDEN FOR TEMPORAL ARTERITIS Temporal Arteritis Temporal Arteritis Reason for Visit Temporal arteritis Additional Source Comments (unrecognized sect ion and content) No Status Records FoundNo Status Records FoundNo Status Records FoundNo Status Records FoundNo Status Records FoundNo Status Records Found INFORMATION SOURCE (unrecogn ized section and content) DATE CREATED AUTHOR 09/22/2021 [facility] dical Specialist DATE CREATED AUTHOR AUTHOR'S ORGANIZ ATION 10/18/2022 [facility] DATE CREATED AUTHOR AUTHOR'S ORGANIZ ATION 10/14/2023 [facility] DATE CREATED AUTHOR AUTHOR'S ORGANIZ ATION 11/02/2023 [facility] DATE CREATED AUTHOR AUTHOR'S ORGANIZ ATION 12/21/2023 [facility] dical Specialists [facility] DATE CREATED AUTHOR AUTHOR'S ORGANIZ ATION 12/22/2023 [facility] Patient Care team informatio n (unrecognized section and content) Team Status: Active Member Role Status Dates Martir Herbert II MD Primary Care Provider Active Team Status: Inactive Member Role Status Dates Martir Herbert II MD Primary Care Provider Active Abran Ochoa MD Attending Provider Active [employer] Relationship Specialty Start Date End Date Martir Herbert II [address] [place] [address] PCP - General Internal Medicine 02/06/23 [employer] Relationship Specialty Start Date End Date Martir Herbert II, MD [address] [place] [address] PCP - General Internal Medicine 02/06/23 Team Status: Inactive Member Role Status Dates Martir Herbert II MD Primary Care Provider Active Juan Jiang MD Attending Provider Active [employer] Relationship Specialty Start Date End Date Martir Herbert II, MD [address] [place] [address] PCP - General Internal Medicine 02/06/23 [employer] Relationship Specialty Start Date End Date Martir Herbert II, MD [address] [place] [address] PCP - General Internal Medicine 02/06/23 [employer] Relationship Specialty Start Date End Date Martir Herbert II, MD [address] [place] [address] PCP - General Internal Medicine 02/06/23 [employer] Relationship Specialty Start Date End Date Martir Herbert II, MD [address] [place] [address] PCP - General Internal Medicine 02/06/23 Team Status: Inactive Member Role Status Dates Martir Herbert II MD Primary Care Provider Active Start: December 18, 2023 End: December 18, 2023 Armani Kelly MD Attending Provider Active S tart: December 18, 2023 End: December 18, 2023 Team Status: Inactive Member Role Status Dates Martir Herbert II MD Primary Care Provider Active Start: December 19, 2023 End: December 19, 2023 Armani Kelly MD Attending Provider Active S tart: December 19, 2023 End: December 19, 2023 Team Status: Active Member Role Status Dates Martir Herbert II MD Primary Care Provider Active Start: December 19, 2023 Armani Kelly MD Attending Provider, Other Provider Active Start: December 19, 2023 Goals (unrecognized section and content) Goals may be documented in a n alternate section Source Comments (unrecognize d section and content) In the event this informatio n is protected by the Federal Confidentiality of Alcohol and Drug Abuse Patient Records regulations: The Federal rules restrict any use of the information to criminally investigate or prosecute any alcohol or drug abuse patient.[facility] the event this information is protected by the Federal Confidentiality of Alcohol and Drug Abuse Patient Records regulations: The Federal rules restrict any use of the information to criminally investigate or prosecute any alcohol or drug abuse patient.[facility] the event this information is protected by the Federal Confidentiality of Alcohol and Drug Abuse Patient Records regulations: The Federal rules restrict any use of the information to criminally investigate or prosecute any alcohol or drug abuse patient.[facility] the event this information is protected by the Federal Confidentiality of Alcohol and Drug Abuse Patient Records regulations: The Federal rules restrict any use of the information to criminally investigate or prosecute any alcohol or drug abuse patient.[facility] the event this information is protected by the Federal Confidentiality of Alcohol and Drug Abuse Patient Records regulations: The Federal rules restrict any use of the information to criminally investigate or prosecute any alcohol or drug abuse patient.[facility] the event this information is protected by the Federal Confidentiality of Alcohol and Drug Abuse Patient Records regulations: The Federal rules restrict any use of the information to criminally investigate or prosecute any alcohol or drug abuse patient.[facility] the event this information is protected by the Federal Confidentiality of Alcohol and Drug Abuse Patient Records regulations: The Federal rules restrict any use of the information to criminally investigate or prosecute any alcohol or drug abuse patient.[facility] Reason for Visit (unrecogniz ed section and [...] BE BASED ON THE PRIMARY CLINICAL RECORDS. [facility]. provides no warranty or guarantee of the accuracy or completeness of information in this document.
[2023-12-24 09:46] LABS: Prostate Specific Antigen Dx 0.59 ng/mL (<=4.00)
== END 2023-12-24 07:34 | disposition home or self-care (01) ==
PROVIDERS: PCP Internal Medicine; Visit Provider Urology
DX: C61 Malignant neoplasm of prostate (principal)
CPT/HCPCS: 84153

== ENCOUNTER 2024-02-11 07:21 | Outpatient (OUT) | payer MEDICARE, OTHER, SELFPAY ==
--- OUTSIDE RECORDS SUMMARY | 2024-02-11 07:44 | XMS_ITS | CCD ---
Author Organization [facility] Care Team Providers Care Felt Hat 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 Name Role Phone MARTIR HERBERT Primary Care Physician DR MARTIR HERBERT Admitting Unavailable KEON, DR POPE Primary Care Unavailable KEON, DR POPE Consulting Unavailable KEON, DR POPE Attending Unavailable LADAN, DR OSULLIVAN Attending Unavailable KEON, DR POPE Primary Care Unavailable LADAN, DR OSULLIVAN Admitting Unavailable LADAN, DR OSULLIVAN Consulting Unavailable MANGO Herbert Primary Care Provider [phone] MD Abran Ochoa Attending Provider Martir Herbert II Primary Care Provider Keon COBIAN MD, Daniel B Primary Care Provider [phone] MANGO Herbert Primary Care Provider MD Juan [...] Unavailable MARTIR HERBERT II Primary Care Unavailable MANGO Herbert Primary Care Provider [phone] MD Armani Kelly Attending Provider [phone] MARTIR HERBERT Attending Unavailable MARTIR HERBERT Attending Unavailable MARTIR HERBERT Attending Unavailable Abran OCHOA Attending Unavailable Abran OCHOA Attending Unavailable Abran OCHOA Attending Unavailable Abran OCHOA Attending Unavailable Abran OCHOA Attending Unavailable Abran OCHOA Attending Unavailable Abran OCHOA Attending Unavailable LADAN, Abran Darling Attending Unavailable Martir Herbert Primary Care Unavailable Deidre, Imtrinidad Attending Unavailable Deidre, Imtrinidad Admitting Unavailable Armnai Kelly Attending Unavailable Armani Kelly Admitting Unavailable Martir Herbert Primary Care Unavailable Allergies Allergy Classification Reported Allergen(s) Allergy Type Date of Onset Reaction(s) Facility (9 sources) Penicillin; Translations: [penicillin] Drug Allergy Unknown (qualifier value) [facility] (9 sources) Sulfonamides; Translations: [sulfonamides] Drug allergy Unknown (qualifier value) [facility] (5 sources) Penicillins; Translations: [PENICILLINS] Drug allergy (disorder) 3 [facility] (1 source) Sulfonamides (Antibiotic) Drug allergy (disorder) 3 [facility] (7 sources) Penicillins Drug Allergy 3 [facility] (10 sources) Sulfonamides (Antibiotic); Translations: [SULFA (SULFONAMIDE ANTIBIOTICS)] Drug Allergy 3 [facility] (1 source) Penicillins Drug allergy (disorder) 4 [facility] (1 source) Sulfonamides (Antibiotic) Drug allergy (disorder) 4 [facility] Medications Current Medications Medication Drug Class(es) Dates Sig (Normalized) Sig (Original) acetaminophen 325 mg / HYDROcodone bitartrate 7.5 mg oral tablet (1 source) Opioid Agonist Start: 01-04-2023 take 1 tablet by mouth once, then take 1 tablet by mouth every hour [place] 325 mg-7.5 mg oral tablet 1 tab(s), Oral, Once, 1 tab(s), Refill(s) 0, Take 1 hour prior to procedure, [facility]/pharmacy #[id number], 175, cm, 12/04/22 12:29:00 EDT, [...] a meal lisinopril 10 mg oral tablet (18 sources) Angiotensin Converting Enzyme Inhibitor Start: 01-05-2023 take 10 mg by mouth once daily Lisinopril Active 10 MG PO Daily May 29, 2023 12:00am Start: 10-28-2019 Co Lisinopril Refills(s) 0 Start Date: 10/28/19 Status: Ordered omega-3 acid ethyl esters (skilled nursing) 1000 mg oral capsule (10 sources) Start: 01-05-2023 take 1 g by mouth once daily [place]-3 Acid Ethyl Esters Active 1 GM PO Daily May 29, 2023 12:00am oxybutynin chloride 5 mg oral tablet (1 source) Cholinergic Muscarinic Antagonist Start: 12-28-2023 take 1 tablet by mouth at bedtime as needed oxybutynin 5 mg Tab 5 mg = 1 tab(s), Oral, Bedtime, PRN for urinary discomfort, # 30 tab(s), Refills(s) 11, Pharmacy: [facility]/pharmacy #[id number], 175, cm, 12/28/23 8:09:00 EDT, Height/Length Dosing, 88, kg, 12/28/23 8:09:00 EDT, Weight Dosing Start Date: 12/28/23 Status: Ordered predniSONE 20 mg oral tablet (3 sources) Start: 12-28-2023 predniSONE 20 mg Tab Refills(s) 0 Start Date: 12/28/23 Status: Ordered Start: 12-18-2023 take 60 mg by mouth once daily Prednisone Active 60 MG PO Daily December 18, 2023 12:00am Start: 12-18-2023 Prednisone Act vikki 20 MG PO December 18, 2023 12:00am simvastatin 20 mg oral tablet (18 sources) HMG-CoA Reductase Inhibitor Start: 01-05-2023 take 20 mg by mouth once daily Simvastatin Active 20 MG PO Daily May 29, 2023 12:00am Start: 10-28-2019 simvastatin Re fills(s) 0 Start Date: 10/28/19 Status: Ordered Vit D3-Vit K2-[place] Ext (3 sources) Start: 05-29-2023 take 1 capsule by mouth once daily Vit D3-Vit K2-[place] Ext Active 25 CAP PO Daily May 29, 2023 12:00am Vitamins A,C,Y-Osga-Uulqcn (Preservision Areds) 4,296 mcg-226 mg-90 mg capsule (2 sources) Start: 12-18-2023 take 1 capsule by mouth twice daily Vitamins A,C,F-Riza-Rgfysw (Preservision Areds) 4,296 mcg-226 mg-90 mg capsule [...] Documented Da te Episodic/Chronic Cancer of prostate (7 sources) Malignant neoplasm of prostate; Translations: [Malignant tumor of prostate] Onset: 02-05-2023 Chronic Cancer; other and unspecified primary (8 sources) H/O Malignant melanoma 10-28-2019 Episodic Disorders of lipid metabolism (4 sources) Mixed hyperlipidemia; Translations: [MIXED HYPERLIPIDEMIA] Onset: 03-04-2022 Chronic Gastrointestinal hemorrhage (1 source) Rectal hemorrhage; Translations: [Hemorrhage of anus and rectum] 05-03-2023 Episodic Genitourinary symptoms and ill-defined conditions (12 sources) Increased frequency of urination; Translations: [Retention of urine] Onset: 10-08-2023 09-01-2020 Episodic Hyperplasia of prostate (20 sources) Benign prostatic hypertrophy with outflow obstruction; Translations: [Prostate nodule] Onset: 12-04-2022 10-28-2019 Chronic Other gastrointestinal disorders (1 source) Constipation; Translations: [Constipation, unspecified] 05-03-2023 Episodic Other nutritional; endocrine; and metabolic disorders (8 sources) Body mass index 25-29 - overweight 09-01-2020 Episodic Other screening for suspected conditions (not mental disorders or infectious disease) (13 sources) Raised prostate specific antigen; Translations: [Elevated prostate specific antigen [PSA]] Onset: 10-17-2022 09-01-2020 Episodic Systemic lupus erythematosus and connective tissue disorders (3 sources) Temporal arteritis; 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] Onset: 12-19-2023 12-18-2023 Chronic Unclassified (1 source) Encounter for screening for malignant neoplasm of colon; Translations: [Encounter for screening for malignant neoplasm of colon] Onset: 05-29-2023 Results Test Name Value Interpretation Reference Range Facil ity Patient Educationon 12-28-19 Patient Education Urology Benign Prostatic Hyperplasia Benign prostatic hyperplasia (BPH) is an enlarged prostate gland that is caused by the normal aging process. The prostate may get bigger as a man gets older. The condition is not caused by cancer. The prostate is a walnut-sized gland that is involved in the production of semen. It is located in front of the rectum and below the bladder. The bladder stores urine. The urethra carries stored urine out of the body. An enlarged prostate can press on the urethra. This can make it harder to pass urine. The buildup of urine in the bladder can cause infection. Back pressure and infection may progress to bladder damage and kidney (renal) failure. What are the causes? This condition is part of the normal aging process. However, not all men develop problems from this condition. If the prostate enlarges away from the urethra, urine flow will not be blocked. If it enlarges toward the urethra and compresses it, there will be problems passing urine. What increases the risk? This condition is more likely to develop in men older than 50 years. What are the signs or [...] Follow these instructions at home: ? Take dywa-rei-ltxvopb and prescription medicines only as told by your health care provider. ? Monitor your symptoms for any changes. Contact your health care provider with any changes. ? Avoid drinking large amounts of liquid before going to bed or out in public. ? Avoid or reduce how much caffeine or alcohol you drink. ? Give yourself time when you urinate. ? Keep all follow-up visits. This is important. Contact a health care provider if: ? You have unexplained back pain. ? Your symptoms do not get better with treatment. ? You develop side effects from the medicine (more content not included)... Normal [facility] Urology Office/Clinic Noteon 12-28-2023 Urology Office/Clinic Note Chief Complaint 3m PSA HPI Staff 3m PSA DX: Prostate Cancer, BPH & Urinary Retention S/P Brachytherapy 09/06/23. *No Urology Meds Last seen by Dr Mendiola 10/11/23, pt to f/u in 6m. PSA 12/24/23- 0.59 Has been getting up 3-4x/night for the past month or so. Denies urgency, and complications with stream. Voiding q3hrs during the day. Denies all urinary sx. History of Present Illness Tests reviewed: reviewed UA, PSA, and most recent rad oncology note. I have reviewed the previous health record [...] HPI. Physical Exam Vitals & Measurements HR: 51(Peripheral) RR: 16 BP: 131/87 HT: 69 in HT: 175 cm WT: 88 kg WT: 193.6 lb BMI: 28.73 General Appearance: alert, no distress, well nourished, well developed male. Assessment/Plan 1. Prostate cancer (C61: Malignant neoplasm of prostate) PSA: 08/05/20 - 3.54 11/30/22 - 3.1 & 21.9% 10/08/23 - 1.55 12/24/23 - 0.59 MRI of prostate 12/19/22 - PI-RADS 4 lesion (7 mm x 4mm) TRUS/bx 01/16/23 - Alpa 7 (3+4) GG2. cT2a, N0, M0, stage IIB. Completed Brachytherapy 09/06/23. Post implant CT reviewed showing appropriate source distribution. Last saw Dr. Mendiola 10/11/23. PSA has remained stable. Following up in 6 mos. -Follow up in 6 months w/ PSA 2. BPH with obstruction/lower urinary tract symptoms (N40.1: Benign prostatic hyperplasia with lower urinary tract symptoms) Not taking any BPH meds. UA today neg. No issues with urination during the day. Pt states if he is busy he can hold it for 3-4 hours. Reports he has been getting up 3-4x during the night for the last month. Pt states he does not drink prior to bedtime. Most likely due to radiation changes, however daughter states pt is taking Prednisone right now which could cause pt to wake up. Reports he will be taking medication for at least a few years due to temporal arteritis. Discussed starting bladder medication to help w/ nocturia. Pt shares he is anxious about starting any new medications due to potential SEs. Pt inquired about having an outlet procedure done. Explained to pt that he is not a candidate due to #1. Discussed potential SEs, explained to pt that SEs would be rare with this low of a dose. Pt elects to start medication. -Script sent for Oxybutynin 5mg qhs -Call our office if no affect after taking x 3 mos 3. Urinary retention (R33.9: Retention of urine, unspecified) Pt had catheter removed 09/12/23 IO s/p brachytherapy. Pt then presented to [facility] ER due to inability to urinate after catheter removal. Bladder scan was >500mL. Dc'd home with Mendoza catheter in place. Came to our office 09/21/23 for catheter removal per approval of PRW. No issues with urination after Mendoza was removed. See #2. Follow-up With When Contact Information LADAN EDWARDS, Abran Darling, URL [address] [place], [place] [id number]- Additional Instructions: 6 mos w/ PSA Patient Education Benign Prostatic Hyperplasia I, Agata Durant, personally scribed for Dr. Ochoa on 12/28/2023 08:52:12. . Documentation recorded by the scribe, Agata Durant, accurately reflects the services(s) I performed and decisions made by me. Authenticated by Dr. Ochoa on 12/28/2023 08:53:25. Problem List/Past Medical History Ongoing BMI 29.0-29.9,adult [...] of prostate using ultrasound (US) guidance (07/25/2005), Anterior temporal artery, Hemorrhoidectomy, Hiatus hernia repair. Medications Co (more content not included)... Normal [facility] Comment on above: Result Comment: Elec tronically Signed By: Abran OCHOA MD\.br\Date and Time Signed: 12/28/23 08:53 EDT\.br\Electronically Co-Signed By: Agata Durant\Date and Time Co-Signed: 12/28/23 08:52 EDT Lab Reportson 12-24-2023 Lab Reports [id number] Normal [facility] Anisocytosis LM Ql (Bld)Orde red By: Arden Marin on 12-19-2023 Anisocytosis Ql (Bld) Slight [facility] Basic Metabolic Panelon 11-23 Anion gap [Moles/Vol] 9.1 mmol/L Normal 6.0-15.0 [facility] Comment on above: Performed By: #### S CAN CBC, BMP #### [facility] [address] [place] [address] [place] Calcium [Mass/Vol] 8.5 mg/dL Low 8.6-10.3 [facility] Comment on above: Performed By: #### S CAN CBC, BMP #### [facility] [address] [place] [id number] [place] Chloride [Moles/Vol] 103 mmol/L Normal 98-107 [facility] Comment on above: Performed By: #### S CAN CBC, BMP #### [facility] [address] [place] [id number] [place] CO2 [Moles/Vol] 26.0 mmol/L Normal 21.0-31.0 [facility] Comment on above: Performed By: #### S CAN CBC, BMP #### [facility] [address] [place] [address] [place] Creatinine [Mass/Vol] 0.74 mg/dL Normal 0.70-1.30 [facility] Comment on above: Performed By: #### S CAN CBC, BMP #### [place] [address] [place] Creatinine Clr Calc Pharmacy 78.34 Normal [facility] Comment on above: Result Comment: PERF ORMED BY: [place] [address] PATHOLOGIST COOK BOAT CAREN DALEY M.D. Performed By: #### S CAN CBC, BMP #### [place] [address] [place] GFR/1.73 sq M.predicted MDRD (S/P/Bld) [Vol rate/Area] mL/min/{1.73_m2} Normal [facility] Comment on above: Performed By: #### S CAN CBC, BMP #### [address] Glucose [Mass/Vol] 88 mg/dL Normal 70-100 [facility] Comment on above: Result Comment: [place] Glucose Reference Range is dependent on time and content of last meal. Glucose of more than 200 mg/dL in a nonstressed, ambulatory subject supports the diagnosis of Diabetes Mellitus. ADA recommended reference range Performed By: #### S CAN CBC, BMP #### [address] Potassium [Moles/Vol] 4.1 mmol/L Normal 3.5-5.1 [facility] Comment on above: Performed By: #### S CAN CBC, BMP #### [place] [address] [place] Sodium [Moles/Vol] 134 mmol/L Low 136-145 [facility] Comment on above: Performed By: #### S CAN CBC, BMP #### [place] [address] [place] Urea nitrogen [Mass/Vol] 23 mg/dL Normal 7-25 [facility] Comment on above: Performed By: #### S CAN CBC, BMP #### [place] [address] [place] Basophils Auto (Bld) [#/Vol] Ordered By: Arden Marin on 03-27-2024 Basophils (Bld) [#/Vol] 0.1 10*3/uL 0.0-0.2 [facility] Basophils/100 WBC Auto (Bld) Ordered By: Arden Marin on 12-19-2023 Basophils/100 WBC (Bld) 0.4 % . [facility] Calcium [Mass/volume] in Ser um or PlasmaOrdered By: Arden Marin on 12-19-2023 Calcium [Mass/Vol] 8.5 mg/dL 8.6-10.3 [facility] Carbon dioxide, total [Moles /volume] in Serum or PlasmaOrdered By: Arden Marin on 12-19-2023 CO2 [Moles/Vol] 26.0 mmol/L 21.0-31.0 [facility] Chloride [Moles/volume] in S jerry or PlasmaOrdered By: Arden Marin on 12-19-2023 Chloride [Moles/Vol] 103 mmol/L 98-107 [facility] Creatinine [Mass/volume] in Serum or PlasmaOrdered By: Arden Marin on 12-19-2023 Creatinine [Mass/Vol] 0.74 mg/dL 0.70-1.30 [facility] ECG 12 lead ECGon 12-19-2023 ECG 12 lead ECG [facility] [place] [address] Electrocardiograph Report Signed Patient: Jose Can MR#: [id number] : 1940 Acct:[id number] Age/Sex: 83 / M ADM Date: 12/19/23 Loc: [place] Room: Type: [facility] Attending Dr: Armani Kelly MD Ordering Provider: [...] previous ECGs available Confirmed by CAROLA EDWARDS [facility], ABRAN ([id number]) on 12/19/2023 6:51:43 AM Referred By: Electronically Signed By:ABRAN SRIVASTAVA MD [facility] Transcribed By: MUS Signed By Pal Srivastava MD 12/19/23 0651 Normal [facility] Eosinophils Auto (Bld) [#/Vo l]Ordered By: Arden Marin on 12-19-2023 Eosinophils (Bld) [#/Vol] 0.1 10*3/uL 0.0-0.45 [facility] Eosinophils/100 WBC Auto (Bl d)Ordered By: Arden Marin on 12-19-2023 Eosinophils/100 WBC (Bld) 0.3 % . [facility] Erythrocyte distribution wid th Auto (RBC) [Ratio]Ordered By: Arden Marin on 12-19-2023 Erythrocyte distribution width (RBC) [Ratio] 13.9 % 12.0-14.8 [facility] Glucose [Mass/volume] in Ser um or PlasmaOrdered By: Arden Marin on 12-19-2023 Glucose [Mass/Vol] 88 mg/dL 70-100 [facility] Comment on above: ADA recommended refe rence rangeRandom Glucose Reference Range is dependent on time and content of last meal. Glucose of more than 200 mg/dL in a nonstressed, ambulatory subject supports the diagnosis of Diabetes Mellitus. Hematocrit Auto (Bld) [Volum e fraction]Ordered By: Arden Marin on 12-19-2023 Hematocrit (Bld) [Volume fraction] 40.8 % 38.8-50.0 [facility] Hemoglobin [Mass/volume] in BloodOrdered By: Arden Marin on 12-19-2023 Hemoglobin (Bld) [Mass/Vol] 13.4 g/dL 13.0-17.0 [facility] Isaías 12-19-2023 L Specimen: [id number] Received: 12/19/23 Status: RANDI Capellan Num: [id number] Spec Type: Surgical Subm Dr: Armani Kelly MD Tissues: A Artery Temporal- Biopsy (RT TEMPORAL ARTERY BX) Procedures: Trichrome/2, CD45/2, HE/20, Gross/Micro L4, CD20/2, CD3/2, CD68/2 Age/ Patient Sex Location Account Attending Physician PamellaJose Adriano 83/M [place] [id number] Armani Kelly MD SPEC NUM: RECD: 12/19/23 STATUS: RANDI CAPELLAN NUM: [id number] FAIZAN: 12/19/[address] [facility] [address]: Aramni Kelly MD ENTERED: 12/19/[address] [facility] [address]: SPEC TYPE: Surgical DEPT: S [...] Clinical Information Right temporal arteritis -------- Specimen: Received: 12/19/23 Status: RANDI Capellan Num: [id number] Spec Type: Surgical Subm Dr: Armani Kelly MD Tissues: A Artery Temporal- Biopsy (RT TEMPORAL ARTERY BX) Procedures: Trichrome/2, CD45/2, HE/20, Gross/Micro L4, CD20/2, CD3/2, CD68/2 -------- Patient: Jose Can [id number] (Continued) -------- Specimen: [id number] Received: 12/19/23 (Continued) Signed (signature on file) Mee Bush MD 12/21/231838 -------- Specimen: [id number] Received: 12/19/23 Status: RANDI Capellan Num: [id number] Spec Type: Surgical Subm Dr: Armani Kelly MD Tissues: A Artery Temporal- Biopsy (RT TEMPORAL ARTERY BX) Procedures: Trichrome/2, CD45/2, HE/20, Gross/Micro L4, CD20/2, CD3/2, CD68/2 -------- Patient: Jose Can [id number] (Continued) -------- Specimen: [id number] Received: 12/19/23 (Continued) Gross Description Received fresh labeled with the patient's name, date of and temporal artery biopsy right is a 7.8 x 0.3 cm cabrera-pink tubular tissue with attached silver metal clips. Sectioning reveals a patent lumen. Entirely submitted in two cassettes labeled A1-A2. CPT Codes 97486 38350, 95857i1 56468 -------- -------- Specimen: [id number] Received: 12/19/23 Status: RANDI Capellan Num: [id number] Spec Type: Surgical Subm Dr: Armani Kelly MD Tissues: A Artery Temporal- Biopsy (RT TEMPORAL ARTERY BX) Procedures: Trichrome/2, CD45/2, HE/20, Gross/Micro L4, CD20/2, CD3/2, CD68/2 -------- Patient: Jose Can [id number] (Continued) -------- Signed (signature on file) Mee Bush MD 12/21/23 1839 Normal [facility] Leukocytes [#/volume] correc claudia for nucleated erythrocytes in Blood by Automated counOrdered By: Arden Marin on 12-19-2023 WBC corrected for nucl RBC Auto (Bld) [#/Vol] 16.2 10*3/uL 4.1-10.5 [facility] Lymphocytes Auto (Bld) [#/Vo l]Ordered By: Arden Marin on 12-19-2023 Lymphocytes (Bld) [#/Vol] 2.9 10*3/uL 1.00-4.8 [facility] Lymphocytes/100 WBC Auto (Bl d)Ordered By: Arden Marin on 12-19-2023 Lymphocytes/100 WBC (Bld) 17.7 % . [facility] MCH Auto (RBC) [Entitic mass ]Ordered By: Arden Marin on 12-19-2023 MCH (RBC) [Entitic mass] 28.9 pg 27.5-35.2 [facility] MCHC Auto (RBC) [Mass/Vol]Or dered By: Arden Marin on 12-19-2023 MCHC (RBC) [Mass/Vol] 32.8 g/dL 32.5-35.6 [facility] MCV Auto (RBC) [Entitic vol] Ordered By: Arden Marin on 12-19-2023 MCV (RBC) [Entitic vol] 88.0 fL 83.5-101 [facility] Microcytes LM Ql (Bld)Ordere d By: Arden Marin on 12-19-2023 Microcytes Ql (Bld) Slight [facility] Monocytes Auto (Bld) [#/Vol] Ordered By: Arden Marin on 12-19-2023 Monocytes (Bld) [#/Vol] 1.3 10*3/uL 0.0-0.8 [facility] Monocytes/100 WBC Auto (Bld) Ordered By: Arden Marin on 12-19-2023 Monocytes/100 WBC (Bld) 8.3 % . [facility] Neutrophils Auto (Bld) [#/Vo l]Ordered By: Arden Marin on 12-19-2023 Neutrophils (Bld) [#/Vol] 11.9 10*3/uL 1.8-7.7 [facility] Neutrophils/100 WBC Auto (Bl d)Ordered By: Arden Marin on 12-19-2023 Neutrophils/100 WBC (Bld) 73.3 % . [facility] No Panel InformationOrdered By: Arden Marin on 12-19-2023 Estimated GFR (CKD-EPI) > 60.0 mL/Min [facility] Creatinine Clearance (Chem 78.34 [facility] Nucleated erythrocytes [Pres ence] in Blood by Automated countOrdered By: Arden Marin on 12-19-2023 Nucleated RBC Auto Ql (Bld) 0.1 /100{WBC} 0-0.5 [facility] Ovalocyte detectionOrdered B y: Arden Marin on 12-19-2023 Ovalocytes LM Ql (Bld) Slight [facility] Platelet adequacy [Presence] in Blood by Light microscopyOrdered By: Arden Marin on 12-19-2023 Platelets LM Ql (Bld) Normal Normal [facility] Platelet mean volume Auto (B ld) [Entitic vol]Ordered By: Arden Marin on 12-19-2023 Platelet mean volume (Bld) [Entitic vol] 7.4 fL 6.6-10.1 [facility] Platelet morphology finding [Identifier] in BloodOrdered By: Arden Marin on 12-19-2023 Platelet morphology finding Nom (Bld) Normal Normal [facility] Platelets Auto (Bld) [#/Vol] Ordered By: Arden Marin on 12-19-2023 Platelets (Bld) [#/Vol] 364 10*3/uL 150-450 [facility] Platelets Large [Presence] i n Blood by Light microscopyOrdered By: Arden Marin on 12-19-2023 Platelets Large LM Ql (Bld) Slight [facility] Poikilocytosis [Presence] in Blood by Light microscopyOrdered By: Arden Marin on 12-19-2023 Poikilocytosis LM Ql (Bld) Slight [facility] Potassium [Moles/volume] in Serum or PlasmaOrdered By: Arden Marin on 12-19-2023 Potassium [Moles/Vol] 4.1 mmol/L 3.5-5.1 [facility] RBC Auto (Bld) [#/Vol]Ordere d By: Arden Marin on 12-19-2023 RBC (Bld) [#/Vol] 4.64 10*6/uL 3.90-5.60 [facility] RBC morphologyOrdered By: Kylah Marin on 12-19-2023 RBC morphology finding Nom (Bld) N/A [facility] Scan and CBCon 12-19-2023 Anisocytosis Ql (Bld) Slight Normal [facility] Comment on above: Performed By: #### S CAN CBC, BMP #### [facility] [address] [place] [address] [place] Basophils (Bld) [#/Vol] 0.1 10*3/uL Normal 0.0-0.2 [facility] Comment on above: Performed By: #### S CAN CBC, BMP #### [facility] [address] [place] [address] [place] Basophils/100 WBC (Bld) 0.4 % Normal . [facility] Comment on above: Performed By: #### S CAN CBC, BMP #### [place] [address] [place] Eosinophils (Bld) [#/Vol] 0.1 10*3/uL Normal 0.0-0.45 [facility] Comment on above: Performed By: #### S CAN CBC, BMP #### [address] Eosinophils/100 WBC (Bld) 0.3 % Normal . [facility] Comment on above: Performed By: #### S CAN CBC, BMP #### [address] Erythrocyte distribution width (RBC) [Ratio] 13.9 % Normal 12.0-14.8 [facility] Comment on above: Performed By: #### S CAN CBC, BMP #### [address] [address] Hematocrit (Bld) [Volume fraction] 40.8 % Normal 38.8-50.0 [facility] Comment on above: Performed By: #### S CAN CBC, BMP #### [address] Hemoglobin (Bld) [Mass/Vol] 13.4 g/dL Normal 13.0-17.0 [facility] Comment on above: Performed By: #### S CAN CBC, BMP #### [address] Large Platelets Slight Normal [facility] Comment on above: Result Comment: PERF ORMED BY: [place] [address] PATHOLOGIST COOK BOAT CAREN DALEY M.D. Performed By: #### S CAN CBC, BMP #### [place] [address] [place] Lymphocytes (Bld) [#/Vol] 2.9 10*3/uL Normal 1.00-4.8 [facility] Comment on above: Performed By: #### S CAN CBC, BMP #### [place] [address] [place] Lymphocytes/100 WBC (Bld) 17.7 % Normal . [facility] Comment on above: Performed By: #### S CAN CBC, BMP #### [address] MCH (RBC) [Entitic mass] 28.9 pg Normal 27.5-35.2 [facility] Comment on above: Performed By: #### S CAN CBC, BMP #### [address] MCV (RBC) [Entitic vol] 88.0 fL Normal 83.5-101 [facility] Comment on above: Performed By: #### S CAN CBC, BMP #### [address] Mean Corpuscular HGB Conc 32.8 g/dL Normal 32.5-35.6 [facility] Comment on above: Performed By: #### S CAN CBC, BMP #### [address] Microcytosis Slight Normal [facility] Comment on above: Performed By: #### S CAN CBC, BMP #### [address] Monocytes (Bld) [#/Vol] 1.3 10*3/uL High 0.0-0.8 [facility] Comment on above: Performed By: #### S CAN CBC, BMP #### [address] Monocytes/100 WBC (Bld) 8.3 % Normal . [facility] Comment on above: Performed By: #### S CAN CBC, BMP #### [place] [address] [place] Neutrophils (Bld) [#/Vol] 11.9 10*3/uL High 1.8-7.7 [facility] Comment on above: Performed By: #### S CAN CBC, BMP #### [address] Neutrophils/100 WBC (Bld) 73.3 % Normal . [facility] Comment on above: Performed By: #### S CAN CBC, BMP #### [address] NRBC% 0.1 /100{WBC} Normal 0-0.5 [facility] Comment on above: Performed By: #### S CAN CBC, BMP #### [address] Ovalocytes Slight Normal [facility] Comment on above: Performed By: #### S CAN CBC, BMP #### [address] Platelet Estimate Normal Normal Normal [facility] Comment on above: Performed By: #### S CAN CBC, BMP #### [address] Platelet mean volume (Bld) [Entitic vol] 7.4 fL Normal 6.6-10.1 [facility] Comment on above: Performed By: #### S CAN CBC, BMP #### [address] Platelet Morphology Normal Normal Normal [facility] Comment on above: Performed By: #### S CAN CBC, BMP #### [address] Platelets (Bld) [#/Vol] 364 10*3/uL Normal 150-450 [facility] Comment on above: Performed By: #### S CAN CBC, BMP #### [address] Poikilocytosis Slight Normal [facility] Comment on above: Performed By: #### S CAN CBC, BMP #### [address] RBC (Bld) [#/Vol] 4.64 10*6/uL Normal 3.90-5.60 [facility] Comment on above: Performed By: #### S CAN CBC, BMP #### [address] WBC (Bld) [#/Vol] 16.2 10*3/uL High 4.1-10.5 [facility] Comment on above: Performed By: #### S CAN CBC, BMP #### [facility] [address] Serum or plasma anion gap de terminationOrdered By: Arden Marin on 12-19-2023 Anion gap [Moles/Vol] 9.1 mmol/L 6.0-15.0 [facility] Sodium [Moles/volume] in Ser um or PlasmaOrdered By: Arden Marin on 12-19-2023 Sodium [Moles/Vol] 134 mmol/L 136-145 [facility] Urea nitrogen [Mass/volume] in Serum or PlasmaOrdered By: Arden Marin on 12-19-2023 Urea nitrogen [Mass/Vol] 23 mg/dL 7-25 [facility] WBC Auto (Bld) [#/Vol]Ordere d By: Arden Marin on 12-19-2023 WBC (Bld) [#/Vol] 16.2 10*3/uL 4.1-10.5 [facility] Consultation Noteon 10-12-19 Consultation Note [id number]#1. 00TIFF Viktor [facility] CNOVon 10-11-2023 CNOV Office Visit (RADTSA ) JOSE CAN ([id number]) 1940 M Date Time Provider Department 10/11/23 9:15 AM Jc MENDIOLA During your visit today, we recorded the following information about you: Temperature Pulse Respiration Blood pressure 97.3 degrees 87/minute 16/minute 125/67 Weight 86 kg Jc Mendiola MD 10/11/2023 9:38 AM Signed Radiation Oncology - Follow Up Note PATIENT NAME: Jose Can PATIENT DIAGNOSIS: Prostate adenocarcinoma, initial PSA 3.1, biopsy Dawson score 3 + 4 = 7 (grade [...] Mendiola MD cc: Martir Herbert II, MD [address] [place] [address] Debra Anthony LPN 10/11/2023 9:38 AM Signed AUA= 5 Allergies As of Date: 10/11/2023 Noted Allergy Reaction PENICILLINS 02/16/2023 2 - Rash SULFA (SULFONAMIDE ANTIBIOTICS) 02/16/2023 2 - Rash Date Reviewed: 09/19/2023 Reviewed by: Debra Quinn LPN - Fully Assessed Primary Visit Diagnosis:Malignant neoplasm of prostate (HCC) [C61] Order(s):PSA (OUTSIDE) [7251936] Order #: [id number] PSA/PROSTSPECAG DIAG [SQPSA] Order #: [id number] FUTURE Prescriptions as of 10/11/2023 - simvastatin [...] 10/11/2023 Visit Notes: >> Debra Quinn LPN [facility] Oct 11, 2023 9:26 AM Status: Signed AUA= 5 Disposition: Return in about 6 months (around 04/10/2024). Follow-up and Disposition History for Encounter Date Provider Department Center 10/11/2023 [id number] [facility] Encounter Status:Closed by Jc MENDIOLA on 10/11/23 Normal [facility] Consultation Noteon 10-09-19 Consultation Note [id number]# 1.00TIFF [facility] ED Note-Physicianon 10-09-19 ED Note-Physician [id number]#1. 00TIFF [facility] Ambulatory Visit Summaryon 0 10-08-2023 Ambulatory Visit Summary JOSE CAN :1940 Visit Date:10/08/2023 Ambulatory Visit Instructions Your Diagnosis Prostate cancer BPH with obstruction/lower urinary tract symptoms Urinary retention Tests Performed Urnls Dip Stick Auto w/o Microscopy POC 53735 Your Care Team Attending Physician - LADAN [...] EDWARDS, Abran Darling Where: [facility] Patient Educationon 10-08-19 Patient Education [...] constipation, you may need to: ? Take psdi-ezr-ymbbmms or prescription medicines. ? Eat foods that are high in fiber, such as beans, whole grains, and fresh fruits and vegetables. ? Limit foods that are high in fat and processed sugars, such as fried or sweet foods. General instructions ? Take cavq-hhg-oduxezt and prescription medicines only as told by [...] (more content not included)... Normal [facility] Urology Office/Clinic Noteon 10-08-2023 Urology [...] 09/12/23 in our office. Then presented to [facility] ER due to inability to urinate [...] (7 mm x 4mm). TRUS/bx 01/16/23 - Dawson 6 (3+3) in 4 cores and Dawson 7 (3 +4) in 1 core. Brachytherapy [...] our office after brachytherapy. Then presented to [facility] ER due to inability to urinate after catheter removal. Bladder scan was >500mL. Dc'd home with Mendoza catheter in place. Came to our office 09/21/23 for catheter removal per approval of PRW. Reports he has not had any issues urinating since. Follow-up With When Contact Information LADAN EDWARDS, Abran Darling, URL [facility] [address], [place] [address]- [phone] Additional Instructions: 3 mos w/ PSA Patient [...] (more content not included)... Normal [facility] Comment on above: Result Comment: Elec tronically Signed By: Abran OCHOA MD\.br\Date and Time Signed: 10/08/23 10:36 EST\.br\Electronically Co-Signed By: Micahela Herbert\.br\Date and Time Co-Signed: 10/08/23 10:35 EST Ambulatory Visit Summaryon Ambulatory Visit Summary JOSE CAN :1940 Visit Date:09/21/2023 Ambulatory Visit Instructions Your Care Team Attending Physician - Abran OCHAO MD Primary Care Physician - MARTIR HERBERT [...] EDWARDS, Abran Darling Where: [facility] Normal [address] [place] [address] \.br\ Medications\.br \ What When Instructions\.b r\ [...] us for your care.\.br\ \.br\ [facility] CNOVon 09-19-2023 CNOV Office Visit (RADTSA ) JOSE CAN ([id number]) 1940 M Date Time Provider Department 09/19/23 9:15 AM Jc MENDIOLA During your visit today, we recorded the following information about you: Temperature Pulse Respiration Blood pressure 97.3 degrees 64/minute 16/minute 153/83 Weight 89.4 kg Jc Mendiola MD 09/19/2023 4:02 PM Signed Radiation Oncology - Follow Up Note PATIENT NAME: Jose Can PATIENT DIAGNOSIS: Prostate adenocarcinoma, initial PSA 3.1, biopsy Dawson score 3 + 4 = 7 (grade [...] ASSESSMENT/PLAN: Prostate adenocarcinoma, initial PSA 3.1, biopsy Dawson score 3 + 4 = 7 (grade [...] Mendiola MD cc: Martir Herbert II, MD [address] [place] [address] No referring provider defined for this encounter. Allergies As of Date: 09/19/2023 Noted Allergy Reaction PENICILLINS 02/16/2023 2 - Rash SULFA (SULFONAMIDE ANTIBIOTICS) 02/16/2023 2 - Rash Date Reviewed: 09/19/2023 Reviewed by: Debra Quinn LPN - Fully Assessed Reason for Visit: Prostate Cancer [590] Primary Visit Diagnosis:Malignant neoplasm of prostate (HCC) [C61] Order(s):PSA/PROSTSPE CAG DIAG [SQPSA] Order #: [id number] FUTURE Prescriptions as of 09/19/2023 - simvastatin [...] for Encounter Date Provider Department Center 09/19/2023 [id number] MENDIOLA DEVIN BAUTISTA Encounter Status:Closed by Jc MENDIOLA on 09/19/23 Normal [facility] Ambulatory Visit Summaryon 1 11-13-2022 Ambulatory [...] EDWARDS, Abran Darling Where: [facility] Normal [address] [place] [address]- \.br\ Medications\.br \ What When Instructions\.b r\ [...] us for your care.\.br\ \.br\ [facility] Lab Reportson 09-07-2023 Lab Reports [id number]#1 .00TIFF Normal [facility] Operative Reporton Operative Report [id number]#1 .00TIFF Normal [facility] RAD - MISCon 09-07-2023 RAD - MISC [id number]#1 .00TIFF Normal [facility] CNOVon 09-06-2023 CNOV Office Visit (RADTSA ) JOSE CAN ([id number]) 1940 M Date Time Provider Department 09/06/23 9:00 AM Jc MENDIOLA During your visit today, we recorded the following information about you: Jc Mendiola MD 09/06/2023 3:18 PM Signed Date: 09/06/23 Facility: [facility] Procedure: prostate transperineal brachytherapy implant Diagnosis: [...] activity seen, results documented. Edilma Mendiola MD [facility] Allergies As of Date: 09/06/2023 Noted [...] Status:Closed by Jc MENDIOLA on 09/06/23 Normal [facility] Consultation Noteon 08-10-20 Consultation Note [id number]#1 .00[facility] CNPNon 07-24-2023 TIMN Telephone (RADTSA) JOSE CAN ([id number]) 1940 M Date Time Provider Department 07/24/23 [...] Status:Closed by DEBRA QUINN on 07/25/23 Normal [facility] ECG 12-Leadon 07-24-2023 ECG 12-Lead [id number]#1 .00TIFF Normal [facility] Formson 07-24-2023 Forms [id number]#1 .00TIFF Normal [facility] ECG 12-Leadon 07-20-2023 ECG 12-Lead [id number]#1 .00TIFF Normal [facility] Lab Reportson 07-20-2023 Lab Reports [id number]#1. 00TIFF Normal [facility] Lab Reports [id number] 0 [id number] #1.00TIFF Normal [facility] Lab Reports [id number]#1. 00TIFF [facility] RAD - MISCon 07-20-2023 RAD - MISC [id number]#1. 00TIFF Normal [facility] CNOVon 07-11-2023 CNOV Office Visit (RADTSA ) JOSE CAN ([id number]) 1940 M Date Time Provider Department 07/11/23 [...] Encounter Status:Closed by Jc MENDIOLA on 07/12/23 [facility] Consent for Procedure/Surger n 06-27-2023 Consent for Procedure/Surgery [id number]# 1.00CD[facility] JORGE Tele[facility] (RADTSA) JOSE CAN ([id number]) 1940 M Date Time Provider Department 06/04/23 [...] Encounter Status:Closed by NICHELLE ELKINS on 06/04/23 [facility] 05-29-2023 L - -------- Specimen: [id number] Received: 05/29/23 Status: RANDI Marilia Num: [id number] Spec Type: Surgical Subm Dr: Juan Jiang MD Tissues: A Colon Biopsy (ASCENDING POLYP) Procedures: HENOK/Josselin, Gross/Micro L4 -------- Age/ Patient Sex Location Account Attending Physician -------- Jose Can /[facility] [id number] Juan Jiang MD -------- SPEC NUM: [id number] RECD: 05/29/23 STATUS: JORGEGilmar CAPELLAN NUM: [id number] FAIZAN: 05/29/23- [facility] DR: Juan Jiang MD ENTERED: 05/29/[address]: SPEC TYPE: Surgical DEPT: S ORDERED: HENOK/2, Gross/Micro L4 ORDERED: HE/2, Gross/Micro L4 Pathological [...] microscopic examination confirms the diagnosis. CPT Codes 57838 -------- -------- Specimen: [id number] Received: 05/29/23 Status: RANDI Capellan Num: [id number] Spec Type: Surgical Subm Dr: Juan Jiang MD Tissues: A Colon Biopsy (ASCENDING POLYP) Procedures: HENOK, Gross/Micro L4 -------- Patient: Jose Can [id number] (Continued) -------- Signed (signature on file) Kashmir Linares MD 05/31/23 1712 Normal [facility] Rebecca 05-02-2023 CNPN Telephone (RADTSA) PAMELLAJOSE ([id number]) 1940 M Date Time Provider Department 05/02/23 [...] done per Dr Franco at [facility] in 2016. It was normal. Dr Mendiola-- [...] tell me when they scheduled it for. 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 Normal [facility] Consultation Noteon 02-17-20 Consultation Note [id number]#1 .00CD:127 Normal [facility] Patient Educationon 02-06-20 Patient Education [...] under a microscope. This is called the Dawson score and the total score can range from 6?10, indicating how likely it is that the cancer will spread (metastasize) to other parts of the body. The higher the score, the greater the likelihood that the cancer will spread. ? Dawson 6 or lower: This indicates that the cancer cells look similar to normal prostate cells (well differentiated). ? Dawson 7: This indicates that the cancer cells look somewhat similar to normal prostate cells (moderately differentiated). ? Dawson 8, 9, or 10: This indicates that [...] (more content not included)... Normal [facility] Progress Note-Nurseon 2022 Progress Note-Nurse JOSE CAN :1940 Visit Date:02/05/2023 Ambulatory Visit Instructions Your Diagnosis Prostate cancer Prostate nodule BPH with obstruction/lower urinary tract symptoms Elevated PSA Tests Performed Urnls Dip Stick Auto w/o Microscopy POC 41339 Your Care Team Attending Physician - Abran OCHOA MD Primary Care Physician - KEON EDWARDS, MARTIR Griffin This Is Your Medications List Contact prescribing physician if questions or concerns lisinopril (Co Lisinopril) simvastatin [Image Removed: STOP]Stop taking these medications acetaminophen-hydroco done ([place] 325 mg-7.5 mg oral tablet) Procedures Performed [...] EDWARDS, Abran Darling Where: [facility] Normal Prostate nodule\.br\ Medications\.br \ What When Instructions\.b r\ Unchanged lisinopril (Co Lisinopril) Contact prescribing physician if questions or concerns \.br\ Unchanged simvastatin Contact prescribing physician if questions or concerns \.br\ \.br\ What How Much When Why Comments\.br\ Stop Taking acetaminophen-h ydrocodone ([place]brook 325 mg-7.5 mg oral tablet) 1 Tablets By Mouth Once Prostate nodule Take 1 hour prior to procedure \.br\ Test Results\.br\ Urnls Dip Stick Auto w/o Microscopy POC 39842 (02/05/2023)\.b r\ Bilirubin Urine Dipstick - Negative\.br\ Blood Urine Dipstick - Negative\.br\ Glucose Urine Dipstick - Negative\.br\ Ketones Urine Dipstick - Negative\.br\ Leukocytes Urine Dipstick - Negative\.br\ Nitrite Urine Dipstick - Negative\.br\ Protein Urine Dipstick - Negative\.br\ Specific [place] Urine Dipstick - 1.020\.br\ Urine Appearance Urine [...] that the cancer will spread.\.br\ ? \.br\ Dawson 6 or lower: This indicates that the cancer cells look similar to normal prostate cells (well differentiated) .\.br\ ? \.br\ Dawson 7: This indicates that the cancer cells look somewhat similar to normal prostate cells (moderately differentiated) .\.br\ ? \.br\ Dawson 8, 9, or 10: This indicates that [...] of the male hormones, by:\ [facility] Urology Office/Clinic Noteon 02-05-2023 Urology [...] done 01/16/2023 are positive for Prostate cancer. Alpa 3+3= 6 (4 cores) and Alpa 3 [...] cons of each therapy today, and this [place] prostate cancer book was provided. Patient given his age, and Dawson score is not a surgical candidate for prostatectomy. Patient is very active with work and is leaning toward maybe just doing [employer]. He will need referral to Dr. [...] Ochoa. Will refer to Dr. Mendiola for [employer] implant in . Follow-up With When Contact Information LADAN EDWARDS, Abran Darling, ISSAC In 6 months [facility] [address] [place] [address] [phone] Additional Instructions: Will refer to Dr. Mendiola Patient Education Prostate Cancer I, Christina Lima, personally scribed for Dr. Ochoa on 02/05/2023 09:36:02. . Documentation recorded by the aaron john, accurately reflects the services(s) I performed and [...] (more content not included)... Normal [facility] Comment on above: Result Comment: Elec tronically Signed By: Abran OCHOA MD\.br\Date and Time Signed: 02/05/23 09:38 EDT\.br\Electronically Co-Signed By: Christina Lima\.br\Date and Time Co-Signed: 02/05/23 09:36 EDT Creatinine (Bld) [Mass/Vol]O rdered By: Abran Ochoa on 12-19-2022 Creatinine [Mass/Vol] 0.9 mg/dL 0.6-1.3 [facility] Comment on above: ER/ESD physician is notified/shown all ISTAT results.Critical values may be confirmed by laboratory testing ifdeemed necessary by ER attending doctor. PSA, FREE AND TOTAL RATIOon 10-18-2022 % Free PSA 21.9 % Normal [facility] Comment on above: Result Comment: The [...] men. Performed By: #### P SAFREE #### [facility] [address] [place] [address] Dr. Deisi Bush Prostate specific Ag [Mass/Vol] 3.1 ng/mL Normal 0.0-4.0 [facility] Comment on above: Result Comment: Cris PRAJAPATI methodology. . According to the [employer], Serum PSA should decrease and [...] disease. Performed By: #### P SAFREE #### [facility] [address] [place] [address] Dr. Deisi Bush PSA, Free 0.68 ng/mL Normal N/A [facility] Comment on above: Result Comment: Cris PRAJAPATI methodology. Performed By: #### P SAFREE #### [facility] [address] [place] [address] Dr. Deisi Bush CBC AUTO DIFFon 03-04-2022 BASO # 0.0 103/ul Normal 0.0-0.1 [facility] Comment on above: Performed By: #### C BC #### [facility] [address] [place] [address] Dr. Deisi Bush Basophils/100 WBC (Bld) 0.6 % Normal 0.2-2.0 [facility] Comment on above: Performed By: #### C BC #### [facility] [address] [place] [address] Dr. Deisi Bush EO # 0.5 103/ul Normal 0.0-0.7 [facility] Comment on above: Performed By: #### C BC #### [facility] [address] [place] [address] Dr. Deisi Bush Eosinophils/100 WBC (Bld) 10.2 % Critically high 0.9-7.0 [facility] Comment on above: Performed By: #### C BC #### [facility] [address] [place] [address] Dr. Deisi Bush Erythrocyte distribution width (RBC) [Ratio] 13.4 % Normal 11.0-15.0 [facility] Comment on above: Performed By: #### C BC #### [facility] [address] [place] [address] Dr. Deisi Bush Hematocrit (Bld) [Volume fraction] 42.3 % Normal 42.0-54.0 [facility] Comment on above: Performed By: #### C BC #### [facility] [address] [place] [address] Dr. Deisi Bush Hemoglobin (Bld) [Mass/Vol] 14.1 g/dL Normal 14.0-18.0 [facility] Comment on above: Performed By: #### C BC #### [facility] [address] [place] [address] Dr. Deisi Bush IG # 0.01 10e3/ul Normal 0.00-0.03 [facility] Comment on above: Performed By: #### C BC #### [facility] [address] [place] [address] Dr. Deisi Bush IG % 0.2 % Normal 0.0-0.5 [facility] Comment on above: Performed By: #### C BC #### [facility] [address] [place] [address] Dr. Deisi Bush LYMPH # 2.4 103/ul Normal 1.2-3.8 [facility] Comment on above: Performed By: #### C BC #### [facility] [address] [place] [address] Dr. Deisi Bush Lymphocytes/100 WBC (Bld) 46.5 % Normal 20.5-60.0 [facility] Comment on above: Performed By: #### C BC #### [facility] [address] [place] [address] Dr. Deisi Bush MANUAL DIFF REQ NO Normal [facility] Comment on above: Performed By: #### C BC #### [facility] [address] [address] [address] Deisi Bush MCH (RBC) [Entitic mass] 30.5 pg Normal 25.9-34.0 [facility] Comment on above: Performed By: #### C BC #### [facility] [address] [place] [address] Dr. Deisi Bush MCHC (RBC) [Mass/Vol] 33.3 g/dL Normal 29.9-35.2 [facility] Comment on above: Performed By: #### C BC #### [facility] [address] [place] [address] Dr. Deisi Bush MCV (RBC) [Entitic vol] 91.4 fL Normal 80.0-94.0 [facility] Comment on above: Performed By: #### C BC #### [facility] [address] [place] [address] Dr. Desii Bush MONO # 0.6 103/ul Normal 0.3-0.8 [facility] Comment on above: Performed By: #### C BC #### [facility] [address] [place] [address] Dr. Deisi Bush Monocytes/100 WBC (Bld) 10.6 % Normal 1.7-12.0 [facility] Comment on above: Performed By: #### C BC #### [facility] [address] [place] [address] Dr. Deisi Bush NEUT # 1.7 103/ul Normal 1.4-6.5 [facility] Comment on above: Performed By: #### C BC #### [facility] [address] [place] [address] Dr. Deisi Bush Neutrophils/100 WBC (Bld) 31.9 % Critically low 43.0-75.0 [facility] Comment on above: Performed By: #### C BC #### [facility] [address] [place] [address] Dr. Deisi Bush Platelet mean volume (Bld) [Entitic vol] 9.2 fL Critically low 9.5-13.5 [facility] Comment on above: Performed By: #### C BC #### [facility] [address] [address] [address] Deisi Bush PLT 219 103/ul Normal 150-450 [facility] Comment on above: Performed By: #### C BC #### [facility] [address] [address] [address] Deisi Bush RBC 4.63 106/ul Critically low 4.70-6.10 [facility] Comment on above: Performed By: #### C BC #### [facility] [address] [address] [address] Deisi Buhs WBC 5.2 103/ul Normal 4.0-11.0 [facility] Comment on above: Performed By: #### C BC #### [facility] [address] [place] [address] Dr. Deisi Bush LIPID PROFILEon 03-04-2022 CHOL-HDL RATIO NORM SEE BELOW Normal [facility] Comment on above: Result Comment: 3.3 - 4.4 LOW RISK 4.4 - 7.1 AVERAGE RISK 7.1 - 11.0 MODERATE RISK >11.0 HIGH RISK Performed By: #### T SH, LIPID, CMP #### [facility] [address] [place] [address] Dr. Deisi Bush Cholesterol [Mass/Vol] 125 mg/dL Normal <=200 [facility] Comment on above: Performed By: #### T SH, LIPID, CMP #### [facility] [address] [place] [address] Dr. Deisi Bush Cholesterol in HDL [Mass/Vol] 37 mg/dL Critically low 40-60 [facility] Comment on above: Performed By: #### T SH, LIPID, CMP #### [facility] [address] [address] [address] Deisi Bush Cholesterol in LDL [Mass/Vol] 75.6 mg/dL Normal [facility] Comment on above: Performed By: #### T SH, LIPID, CMP #### [facility] [address] [place] [address] Dr. Deisi Bush Cholesterol.total/Chol esterol in HDL [Mass ratio] 3.4 {ratio} Normal [facility] Comment on above: Performed By: #### T SH, LIPID, CMP #### [facility] [address] [address] [address] Deisi Bush HDL NORMAL > or = 60 mg/dl - LO W CARDIOVASCULAR RISK <40 mg/dl - HIGH CARDIOVASCULAR RISK Normal [facility] Comment on above: Performed By: #### T SH, LIPID, CMP #### [facility] [address] [place] [address] Dr. Deisi Bush LDL CALC NORMAL SEE BELOW Normal [facility] Comment on above: Result Comment: <100 mg/dl OPTIMAL 100 - 129 mg/dl NEAR OR ABOVE OPTIMAL 130 - 159 mg/dl BORDERLINE HIGH 160 - 189 mg/dl HIGH >190 mg/dl VERY HIGH Performed By: #### T SH, LIPID, CMP #### [facility] [address] [place] [address] Dr. Deisi Bush Triglyceride [Mass/Vol] 62 mg/dL Normal <=150 [facility] Comment on above: Performed By: #### T SERGIO, LIPID, CMP #### [facility] [address] [place] [address] Dr. Deisi Bush VLDL CALC 12.4 mg/dL Normal [facility] Comment on above: Performed By: #### T SH, LIPID, CMP #### [facility] [address] [place] [address] Dr. Deisi Bush PROF 14(COMP METB)on 022 Albumin [Mass/Vol] 3.4 g/dL Normal 3.4-5.0 [facility] Comment on above: Performed By: #### T SH, LIPID, CMP #### [facility] [address] [place] [address] Dr. Deisi Bush Albumin/Globulin [Mass ratio] 0.9 {ratio} Normal [facility] Comment on above: Performed By: #### T SH, LIPID, CMP #### [facility] [address] [place] [address] Dr. Deisi Bush ALP [Catalytic activity/Vol] 73 U/L Normal 46-116 [facility] Comment on above: Performed By: #### T SH, LIPID, CMP #### [facility] [address] [address] [address] Deisi Bush ALT [Catalytic activity/Vol] 27 U/L Normal 16-63 [facility] Comment on above: Performed By: #### T SH, LIPID, CMP #### [facility] [address] [address] [address] Deisi Bush Anion gap [Moles/Vol] 11.6 mmol/L Normal [facility] Comment on above: Performed By: #### T SH, LIPID, CMP #### [facility] [address] [address] [address] Deisi Bush AST [Catalytic activity/Vol] 22 U/L Normal 15-37 [facility] Comment on above: Performed By: #### T SH, LIPID, CMP #### [facility] [address] [place] [address] Dr. Deisi Bush Bilirubin [Mass/Vol] 1.1 mg/dL Critically high 0.2-1.0 [facility] Comment on above: Performed By: #### T SH, LIPID, CMP #### [facility] [address] [address] [address] Deisi Bush Calcium [Mass/Vol] 8.7 mg/dL Normal 8.5-10.1 [facility] Comment on above: Performed By: #### T SH, LIPID, CMP #### [facility] [address] [address] [address] Deisi Bush Chloride [Moles/Vol] 105 mmol/L Normal 98-107 [facility] Comment on above: Performed By: #### T SH, LIPID, CMP #### [facility] [address] [address] [address] Deisi Bush CO2 [Moles/Vol] 27.6 mmol/L Normal 21.0-32.0 [facility] Comment on above: Performed By: #### T SH, LIPID, CMP #### [facility] [address] [address] [address] Deisi Bush Creatinine [Mass/Vol] 0.90 mg/dL Normal 0.70-1.30 [facility] Comment on above: Performed By: #### T SH, LIPID, CMP #### [facility] [address] [address] [address] Deisi Bush EGFR-AF PALESTINIAN >60 Normal >=60 [facility] Comment on above: Performed By: #### T SH, LIPID, CMP #### [facility] [address] [address] [address] Deisi Bush EGFR-NON AF PALESTINIAN >60 Normal >=60 [facility] Comment on above: Performed By: #### T SH, LIPID, CMP #### [facility] [address] [address] [address] Deisi Bush Globulin (S) [Mass/Vol] 3.6 g/dL Normal [facility] Comment on above: Performed By: #### T SH, LIPID, CMP #### [facility] [address] [address] [address] Deisi Bush Glucose [Mass/Vol] 96 mg/dL Normal 74-106 [facility] Comment on above: Performed By: #### T SH, LIPID, CMP #### [facility] [address] [address] [address] Deisi Bush Potassium [Moles/Vol] 4.2 mmol/L Normal 3.5-5.1 [facility] Comment on above: Performed By: #### T SH, LIPID, CMP #### [facility] [address] [address] [address] Deisi Bush Protein [Mass/Vol] 7.0 g/dL Normal 6.4-8.2 [facility] Comment on above: Performed By: #### T SH, LIPID, CMP #### [facility] [address] [address] [address] Deisi Bush Sodium [Moles/Vol] 140 mmol/L Normal 136-145 [facility] Comment on above: Performed By: #### T SH, LIPID, CMP #### [facility] [address] [address] [address] Deisi Bush Urea nitrogen [Mass/Vol] 16.0 mg/dL Normal 7.0-18.0 [facility] Comment on above: Performed By: #### T SH, LIPID, CMP #### [facility] [address] [address] [address] Deisi Bush Urea nitrogen/Creatinine [Mass ratio] 17.8 mg/mg Normal [facility] Comment on above: Performed By: #### T SH, LIPID, CMP #### [facility] [address] [address] [address] Deisi Bush TSHon 03-04-2022 TSH 1.259 uIU/mL Normal 0.358-3.740 [facility] Comment on above: Performed By: #### T SH, LIPID, CMP #### [facility] [address] [address] [address] Deisi Bush TSH RANGE SEE BELOW Normal [facility] Comment on above: Result Comment: <0.3 4 UIU/ml HYPERTHYROID 0.34-5.60 UIU/ml EUTHYROID >5.60 UIU/ml HYPOTHYROID Performed By: #### T SH, LIPID, CMP #### [facility] [address] [address] [address] Deisi Bush Lipid Panelon 09-21-2021 Cholesterol [Mass/Vol] 181 mg/dL Normal 125-200 No [facility] Comment on above: Result Comment: Low risk < 200mg/dL Borderline risk 201-239 mg/dl High risk > or equal to 240 Performed By: #### L IPD #### [facility] [address] [id number] Cholesterol in HDL [Mass/Vol] 41 mg/dL Normal >40 [facility] Comment on above: Result Comment: High Cardiovascular Risk HDL <40 mg/dL Low Cardiovascular Risk HDL > or equal to 60 mg/dl Performed By: #### L IPD #### [facility] [address] [id number] Cholesterol in LDL [Mass/Vol] 126 mg/dL Normal [facility] Comment on above: Result Comment: LDL ATP III CLASSIFICATION LDL less than 100 mg/dl Optimal LDL 100-129 mg/dl Near or above optimal LDL 130-159 Borderline high LDL 160-189 High LDL greater than 189 mg/dl Very High Performed By: #### L IPD #### [facility] [address] [place], [place] [id number] Cholesterol in VLDL [Mass/Vol] 14 mg/dL Normal [facility] Comment on above: Performed By: #### L IPD #### [facility] [address] [place], [place] [id number] Cholesterol.total/Chol esterol in HDL [Mass ratio] 4 {ratio} Normal [facility] Comment on above: Performed By: #### L IPD #### [facility] [address] [place], [place] [id number] Triglyceride [Mass/Vol] 72 mg/dL Normal 30-150 [facility] [employer] Comment on above: Result Comment: TRIG ATPIII CLASSIFICATIONS TRIG less than 150 mg/dl Normal TRIG 150-199 mg/dl Borderline High TRIG 200-500 mg/dl High TRIG greather than 500 mg/dl Very High Performed By: #### L IPD #### [facility] [address] [place], [place] [id number] PSA SCREEN (MEDICARE)on 08-25 TPSA 3.110 ng/mL Normal <4.000 [facility] Comment on above: Result Comment: PSA Test Method: ECLIA/Saw e 601 Performed By: #### P SA MC #### [facility] [address] [place], [place] [id number] Vital Signs Date Time Vital Sign Value Performing Clinician Jose Enrique carpenter 12-28-2023 08:06-0400 Blood Pressure Location Abran OCHOA [facility] 12-28-2023 08:06-0400 Diastolic blood pressure 87 mm[Hg] Abran OCHOA [facility] 12-28-2023 08:06-0400 Heart rate 51 /min Abran OCHOA [facility] 12-28-2023 08:06-0400 Respiratory rate 16 /min Abran OCHOA [facility] 12-28-2023 08:06-0400 Systolic blood pressure 131 mm[Hg] Abran OCHOA [facility] 12-19-2023 09:30-0400 Diastolic blood pressure 89 mm[Hg] II Martir Herbert Work Phone: [facility] 12-19-2023 09:30-0400 Heart rate 51 /min II Martir Herbert Work Phone: [facility] 12-19-2023 09:30-0400 Respiratory rate 16 /min II Martir Herbert Work Phone: [facility] 12-19-2023 09:30-0400 SaO2% (BldA) [Mass fraction] 97 % II Martir Herbert Work Phone: [facility] 12-19-2023 09:30-0400 Systolic blood pressure 165 mm[Hg] II Martir Herbert Work Phone: [facility] 12-19-2023 07:04-0400 Body height 175.26 cm II Martir Herbert Work Phone: [facility] 12-19-2023 07:04-0400 Body mass index (BMI) [Ratio] 28.8 kg/m2 II Martir Herbert Work Phone: [facility] 12-19-2023 07:04-0400 Body weight 88.45 kg II Martir Herbert Work Phone: [facility] 12-19-2023 06:22-0400 Body temperature 97.6 [degF] II Martir Herbert Work Phone: [facility] 12-18-2023 11:59-0400 Body height 175.26 cm [facility] 12-18-2023 11:59-0400 Body mass index (BMI) [Ratio] 26.6 kg/m2 [facility] 12-18-2023 11:59-0400 Body temperature 97.6 [degF] [facility] 12-18-2023 11:59-0400 Body weight 81.64 kg [facility] 12-18-2023 11:59-0400 Diastolic blood pressure 72 mm[Hg] [facility] 12-18-2023 11:59-0400 Heart rate 62 /min [facility] 12-18-2023 11:59-0400 Respiratory rate 16 /min [facility] 12-18-2023 11:59-0400 SaO2% (BldA) [Mass fraction] 98 % [facility] 12-18-2023 11:59-0400 Systolic blood pressure 120 mm[Hg] [facility] 10-08-2023 09:53-0500 Blood Pressure Location Abran OCHOA [facility] 10-08-2023 09:53-0500 Diastolic blood pressure 74 mm[Hg] Abran OCHOA [facility] 10-08-2023 09:53-0500 Heart rate 72 /min Abran OCHOA [facility] 10-08-2023 09:53-0500 Respiratory rate 16 /min Abran OCHOA [facility] 10-08-2023 09:53-0500 Systolic blood pressure 130 mm[Hg] Abran OCHOA [facility] 05-29-2023 09:10-0400 Diastolic blood pressure 67 mm[Hg] II Martir Herbert Work Phone: [facility] 05-29-2023 09:10-0400 Heart rate 51 /min II Martir Herbert Work Phone: [facility] 05-29-2023 09:10-0400 Respiratory rate 16 /min II Martir Herbert Work Phone: [facility] 05-29-2023 09:10-0400 SaO2% (BldA) [Mass fraction] 96 % II Martir Herbert Work Phone: [facility] 05-29-2023 09:10-0400 Systolic blood pressure 131 mm[Hg] II Martir Herbert Work Phone: [facility] 05-29-2023 07:30-0400 Body height 175.26 cm II Martir Herbert Work Phone: [facility] 05-29-2023 07:30-0400 Body temperature 98 [degF] II Martir Herbert Work Phone: [facility] 05-29-2023 07:30-0400 Body weight 81.64 kg II Martir Herbert Work Phone: [facility] 02-05-2023 08:47-0400 Diastolic blood pressure 80 mm[Hg] Abran OCHOA [facility] 02-05-2023 08:47-0400 Mean blood pressure 103 mm[Hg] Abran OCHOA [facility] 02-05-2023 08:47-0400 Systolic blood pressure 150 mm[Hg] Abran OCHOA [facility] 02-05-2023 08:42-0400 Blood Pressure Location Abran OCHOA [facility] 02-05-2023 08:42-0400 Diastolic blood pressure 80 mm[Hg] Abran OCHOA [facility] 02-05-2023 08:42-0400 Heart rate 53 /min Abran OCHOA [facility] 02-05-2023 08:42-0400 Systolic blood pressure 154 mm[Hg] Abran OCHOA [facility] 12-19-2022 06:51-0400 Body height 177.8 cm II Martir Herbert Work Phone: [facility] 12-19-2022 06:51-0400 Body weight 81.64 kg II Martir Herbert Work Phone: [facility] 12-04-2022 12:26-0400 Blood Pressure Location Abran OCHOA [facility] 12-04-2022 12:26-0400 Diastolic blood pressure 70 mm[Hg] Abran OCHOA [facility] 12-04-2022 12:26-0400 Heart rate 64 /min Abran OCHOA [facility] 12-04-2022 12:26-0400 Systolic blood pressure 149 mm[Hg] Abran OCHOA [facility] Encounters Encounter Date Encounter Type Care Provider Facility Start: 07-04-2024 ambulatory Abran OCHOA Facili ty:[facility] Start: 12-28-2023 End: 12-29-2023 ambulatory Abran OCHOA Facility:[facility] Start: 12-28-2023 End: 12-28-2023 Patient encounter procedure Abran OCHOA [facility] Start: 12-20-2023 End: 12-20-2023 ambulatory MARTIR HERBERT Not Available Start: 12-19-2023 Non-patient / Non-visit II Domenic Herbert Work Phone: [facility] Vascular Surgery Work Phone: Start: 12-19-2023 End: 12-19-2023 ambulatory Armani Kelly Facility:[facility] Start: 12-19-2023 End: 12-19-2023 Admission to same day surgery center II Martir Herbert Work Phone: [facility] [place] Start: 12-19-2023 End: 12-19-2023 ambulatory II Martir Herbert Work Phone: [facility] Work Phone: Start: 12-18-2023 End: 12-18-2023 ambulatory [facility] Work Phone: Start: 12-18-2023 End: 12-18-2023 Patient encounter procedure [facility] Vascular Surgery Work Phone: Start: 12-06-2023 End: 12-06-2023 ambulatory MARTIR HERBERT Not Available Start: 11-14-2023 End: 11-14-2023 ambulatory MARTIR HERBERT Not Available Start: 10-11-2023 End: 10-11-2023 ambulatory Jc MENDIOLA Facility:[facility] Start: 10-08-2023 End: 10-09-2023 ambulatory Abran OCHOA Facility:[facility] Start: 10-08-2023 End: 10-08-2023 Patient encounter procedure [facility] Start: 10-03-2023 End: 10-03-2023 ambulatory MARTIR HERBERT II Facility:[facility] Start: 09-21-2023 End: 09-22-2023 ambulatory Abran OCHOA Facility:[facility] Start: 09-21-2023 End: 09-21-2023 Patient encounter procedure Abran OCHOA [facility] [place] Start: 09-19-2023 End: 09-19-2023 ambulatory Jc MENDIOLA Facility:[facility] Start: 09-12-2023 End: 09-13-2023 ambulatory Abran OCHOA Facility:[facility] Start: 09-12-2023 End: 09-12-2023 Patient encounter procedure Abran OCHOA [facility] Start: 09-06-2023 End: 09-07-2023 ambulatory Jc MENDIOLA Facility:[facility] Start: 09-06-2023 End: 09-06-2023 Patient encounter procedure Jc Mendiola MD Work Phone: [facility] Comment on above: Malignant neoplasm o f prostate (HCC) (Primary Dx) Start: 08-08-2023 ambulatory Abran OCHOA Facili ty:[facility] Start: 07-25-2023 Patient encounter procedure [facility] Provider [facility] Start: 07-24-2023 Telephone encounter Jc Mendiola MD Work Phone: [facility] Comment on above: Appointment Start: 07-11-2023 Patient encounter procedure Jc Mendiola MD Work Phone: [facility] Start: 07-11-2023 Radiation Oncology Note Jc Mendiola MD Work Phone: [facility] Comment on above: Simulation Note Start: 07-11-2023 End: 07-11-2023 ambulatory Jc MENDIOLA Facility:[facility] Start: 05-29-2023 End: 05-29-2023 ambulatory Martir Herbert Facility:[facility] Start: 05-29-2023 End: 05-29-2023 Admission to same day surgery center MANGO Herbert Work Phone: [facility] Work Phone: Start: 05-29-2023 End: 05-29-2023 ambulatory II Martir Herbert Work Phone: [facility] Work Phone: Start: 05-23-2023 Patient encounter procedure [facility] Provider [facility] Start: 05-02-2023 Telephone encounter Jc Mendiola MD Work Phone: Rad[facility] Oncology Comment on above: Constipation; Rectal Bleeding; Future Appointment Start: 02-21-2023 Patient encounter procedure [facility] Provider [facility] Start: 02-16-2023 End: 02-16-2023 ambulatory Jc MENDIOLA Facility:[facility] Start: 02-05-2023 End: 02-06-2023 ambulatory Abran OCHOA Facility:[facility] Start: 02-05-2023 End: 02-05-2023 Patient encounter procedure Abran OCHOA [facility] Start: 01-16-2023 End: 01-16-2023 Patient encounter procedure Abran OCHOA [facility] Start: 12-19-2022 End: 12-19-2022 ambulatory II Martir Herbert Work Phone: [facility] Work Phone: Start: 12-19-2022 End: 12-19-2022 Patient encounter procedure II Martir Herbert Work Phone: [facility] [place] Work Phone: Start: 12-04-2022 End: 12-04-2022 Patient encounter procedure Abran OCHOA [facility] Start: 10-17-2022 End: 10-18-[address] ABRAN OCHOA Facility:[facility] Start: 09-22-2022 End: 09-22-2022 Patient encounter procedure Arban OCHOA [facility] Start: 03-04-2022 End: 03-05-[address] MARTIR [...] Abran OCHOA Start: 10-03-2013 Cystoscopy Abran GRICELDA DOMINGUEZ Comment on above: Lt stent removal Start: 09-23-2013 Cystoscopy Abran GRICELDA DOMINGUEZ Comment on above: Lt RG, Lt [...] rnia repair Abran OCHOA Hemorrhoidectomy Abran BRUSH Structure of anterio r temporal artery (body structure) Abran OCHOA Plan of Treatment Date Care Activity Detail Author Start: 09-19-2031 Urine microalbumin profile DTaP,Tdap,Td Vaccine (2 - Td or Tdap) [facility] Start: 12-19-2023 [facility] Start: 12-19-2023 [facility] Start: 05-29-2023 [facility] Start: 05-25-2023 Covid-19 Vaccine ( season) Covid-19 Vaccine ( season) [facility] Start: 05-25-2023 Influenza vaccination C [facility] Start: 12-11-2022 COVID-19 VACCINE (5 - Pfizer series) COVID-19 VACCINE (5 - Pfizer series) [facility] Start: 09-24-2022 ADVANCE DIRECTIVE DISCUSSION ADVANCE DIRECTIVE DISCUSSION [facility] Start: 09-24-2022 DEPRESSION ASSESSMENT DEPRESSION ASS ESSMENT [facility] Start: 2006 PNEUMOCOCCAL: 65+ (1 - PCV) PNEUMOCOCCAL: 65+ (1 - PCV) [facility] Start: 2001 RSV Vaccine (1 - 1-d ose 60+ series) RSV Vaccine (1 - 1-dose 60+ series) [facility] Start: 11-24-1991 SHINGRIX VACCINE (1 of 2) LOPEZ GRIX VACCINE (1 of 2) [facility] Start: 1986 DIABETES SCREEN DIABETES SCREEN [facility] Start: 1986 Diabetes Screening Diabetes Screenin g [facility] Start: 1960 Urine microalbumin profile DTAP,TDAP,TD (1 - Tdap) [facility] Patient referral [facility] Work Phone: [facility] Immunizations Immunization Date Immunization Notes Care Provider Alvin barker 07-31-2023 COVID-19 (PFIZER) 12Y and older II Martir Herbert Work Phone: [facility] 07-31-2023 influenza virus vaccine, unspecified formulation Abran OCHOA [facility] 08-13-2022 influenza virus vaccine, unspecified formulation Abran OCHOA [facility] 08-13-2022 SARS-CoV-2 (COVID-19 ) [id number] Abran OCHOA [facility] 03-27-2022 zoster vaccine recombinant Abran OCHOA [facility] 09-21-2021 zoster vaccine recombinant Abran OCHOA [facility] 09-19-2021 tetanus toxoid, redu lester diphtheria toxoid, and acellular pertussis vaccine, adsorbed Abran OCHOA [facility] 08-25-2021 influenza virus vaccine, unspecified formulation Abran OCHOA [facility] 06-25-2021 influenza virus vaccine, unspecified formulation Abran OCHOA [facility] 06-25-2021 SARS-CoV-2 (COVID-19 ) mRNA BNT-162b2 vax Abran OCHOA [facility] Comment on above: Result Comment: 2022: [id number] 11-14-2020 SARS-CoV-2 (COVID-19 ) mRNA BNT-162b2 vax Abran OCHOA [facility] Comment on above: Result Comment: 2022: [id number] 10-24-2020 SARS-CoV-2 (COVID-19 ) mRNA BNT-162b2 vax Abran OCHOA [facility] Comment on above: Result Comment: 2022: [id number] 06-28-2020 influenza virus vaccine, unspecified formulation [facility] [place] 07-02-2019 influenza virus vaccine, unspecified formulation Abran OCHOA [facility] 07-02-2019 pneumococcal conjuga te vaccine, 13 valent Abran OCHOA [facility] 06-29-2018 influenza virus vaccine, unspecified formulation Abranvalentin OCHOA [facility] 06-21-2017 influenza virus vaccine, unspecified formulation Abran OCHOA [facility] 08-18-2015 influenza virus vaccine, unspecified formulation Abran OCHOA [facility] 06-23-2014 influenza virus vaccine, unspecified formulation Abranvalentin OCHOA [facility] 07-01-2013 influenza virus vaccine, unspecified formulation Abranvalentin OCHOA [facility] 07-01-2013 zoster vaccine, live Abranvalentin OCHOA [facility] Payers Date Payer Category Payer Self-pay 2022 Private Health Insurance [facility] INDEMNITY [id number] 2022-Present [phone] [address] [place] [address] Indemnity [id number] 2006 Medicare [id number] 1959 Medicare [id number] 1959 Private Health Insurance [id number] 1941 Unknown [id number] 2.16.840.1.666363.3.579. 2.593 1941 Unknown [id number] 2.16.840.1.950820.3.579. 2.593 1941 Unknown [id number] 2.16.840.1.004504.3.579. 2.1259 1941 Unknown [id number] 2.16.840.1.094220.3.579. 2.1259 1941 Unknown [id number] 2.16.840.1.254298.3.579. 2.1259 1941 Unknown [id number] 2.16.840.1.142491.3.579. 2.727 1941 Unknown [id number] 2.16.840.1.226574.3.579. 2.727 1941 Unknown [id number] 2.16.840.1.023370.3.579. 2.727 1941 Unknown [id number] 2.16.840.1.515755.3.579. 2.727 1941 Unknown [id number] 2.16.840.1.816902.3.579. 2.727 1941 Unknown [id number] 2.16.840.1.017371.3.579. 2.727 1941 Unknown [id number] 2.16.840.1.273823.3.579. 2.727 1941 Unknown [id number] 2.16.840.1.720477.3.579. 2.727 Unknown Insurance No Card [id number] Unknown [id number] 2.16.840.1.301416.3.579. 2.531 Unknown [id number] 2.16.840.1.229979.3.579. 2.531 Social History Date Type Detail Facility Start: 09-01-2020 End: 12-28-2023 Tobacco smoking status Never smoked tobacco (finding) [facility] Tobacco smoking status Never [facility] Start: 02-16-2023 End: 09-06-2023 Sex Assigned At Male [facility] Start: 1940 Sex Assigned At Male F [facility] Start: 02-16-2023 Tobacco use and exposure Smokeless tobacco non-user [facility] Start: 02-16-2023 Alcohol intake Ex-drinker (finding) [facility] Start: 1940 Sex Assigned At Not on file C [facility] Start: 02-16-2023 End: 09-06-2023 History of Social function [facility] Goals Date Patient Goal Desired Activity /State Functional Status Date Assessment Result Facility 12-28-2023 Functional Status N/A [facility] 10-08-2023 Functional Status N/A [facility] 02-05-2023 Functional Status N/A [facility] 12-04-2022 Functional Status N/A [facility] Clinical Notes 02-23-2022 to 12-28-2023 Jc Mendiola MD - 09/06/2023 3:06 PM ESTTelephone Encounter - Debra Quinn LPN - 07/25/2023 11:26 AM EDTTelephone Encounter - Debra Quinn LPN - 07/24/2023 9:54 AM EDT Note Date & Type Note Facility 12-28-2023 Hospital Discharge instructions Patient Education 12/28/2023 08:46:10 Benign Prostatic Hyperplasia Benign Prostatic Hyperplasia Benign prostatic hyperplasia (BPH) is an enlarged prostate gland that is caused by the normal aging process. The prostate may get bigger as a man gets older. The condition is not caused by cancer. The prostate is a walnut-sized gland that is involved in the production of semen. It is located in front of the rectum and below the bladder. The bladder stores urine. The urethra carries stored urine out of the body. An enlarged prostate can press on the urethra. This can make it harder to pass urine. The buildup of urine in the bladder can cause infection. Back pressure and infection may progress to bladder damage and kidney (renal) failure. What are the causes? This condition is part of the normal aging process. However, not all men develop problems from this condition. If the prostate enlarges away from the urethra, urine flow will not be blocked. If it enlarges toward the urethra and compresses it, there will be problems passing urine. What increases the risk? This condition is more likely to develop in men older than 50 years. What are the signs or [...] urethra. Follow these instructions at home: Take bqkt-ulw-ahunuct and prescription medicines only as told by your health care provider. Monitor your symptoms for any changes. Contact your health care provider with any changes. Avoid drinking large amounts of liquid before going to bed or out in public. Avoid or reduce how much caffeine or alcohol you drink. Give yourself time when you urinate. Keep all follow-up visits. This is important. Contact a health care provider if: You have unexplained back pain. Your symptoms do not get better with treatment. You develop side effects from the medicine you are taking. Your urine becomes very dark or has a bad smell. Your lower abdomen becomes distended and you have trouble passing urine. Get help right away if: You have a fever or chills. You suddenly cannot urinate. You feel light-headed or very dizzy, or you faint. There are large amounts of blood or clots in your urine. Your urinary problems become hard to manage. You develop moderate to severe low back or flank pain. The flank is the side of your body between the ribs and the hip. These symptoms may be an emergency. Get help right away. Call 911. Do not wait to see if the symptoms will go away. Do not drive yourself to the hospital. Summary Benign prostatic hyperplasia (BPH) is an enlarged prostate that is caused by the normal aging process. It is not caused by cancer. An enlarged prostate can press on the urethra. This can make it hard to pass urine. This condition is more likely to develop in men older than 50 years. Get help right away if you suddenly cannot urinate. This information is not intended to replace advice given to you by your health care provider. Make sure you discuss any questions you have with your health care provider. Document Revised: 03/29/2022 Document Reviewed: 03/29/2022 appbackr Patient Education 2022 [employer]. Follow Up Care 12/04/2022 12:55:53 With:LADAN EDWARDS, Abran Darling, URL Address: [address] [place], [place] [id number]- When: Unknown [facility] 10-11-2023 Note HNO ID: [id number] Author: Jc MENDIOLA MD Service: ? 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 Ochoa [facility] 10-08-2023 Hospital Discharge instructions Patient Education [...] treat constipation, you may need to: Take qxjn-jlk-rimozus or prescription medicines. Eat foods that are high in fiber, such as beans, whole grains, and fresh fruits and vegetables. Limit foods that are high in fat and processed sugars, such as fried or sweet foods. General instructions Take gnyn-eee-bhinmpc and prescription medicines only as told by [...] provider. Document Revised: 12/07/2021 Document Reviewed: 12/07/2021 appbackr Patient Education 2022 [employer]. Follow Up Care 06/26/2023 12:00:57 With:LADAN EDWARDS, Abran Darling, URL Address: [facility] [address] [place] [address]- [phone] When: Unknown Comments:3 mos w/ PSA [facility] 10-03-2023 Note HNO ID: [id number] Author: Jc MENDIOLA MD Service: ? Author Type: Physician Type: Progress Notes Filed: 10/12/2023 11:35 Note Text: Patient: Jose Can Date:10/03/2023 [facility] Department of Radiation Oncology [facility] RADIATION ONCOLOGY POST SEED IMPLANT SIMULATION NOTE [...] Electronically Signed CHIRAG MENDIOLA M.D. 1:35 AM [facility] 09-19-2023 Note HNO ID: [id number] Author: Jc Mendiola MD Service: ? Author [...] MD cc: Martir Herbert II, MD [address] [id number] No referring provider defined for this encounter. [facility] 09-06-2023 Note HNO ID: [id number] Author: Jc Mendiola MD Service: ? Author Type: Physician Type: Progress Notes Filed: 09/06/2023 3:18 PM Note Text: Date: 09/06/23 Facility: [facility] Procedure: prostate transperineal brachytherapy implant Diagnosis: [...] Edilma Mendiola MD [facility] 09-06-2023 History of Present illness Narrative Date: 09/06/23 Facility: [facility] Procedure: prostate transperineal brachytherapy implant Diagnosis: [...] activity seen, results documented. Edilma Mendiola MD [facility] documented in this encounter [facility] 08-25-2023 Note HNO ID: [id number] Author: Jc Mendiola MD Service: ? Author Type: Physician Type: Progress Notes Filed: 09/06/2023 12:36 AM Note Text: JOSE CAN [id number] 08/25/2023 [facility] Department of Radiation Oncology [facility] RADIATION ONCOLOGY BRACHYTHERAPY TREATMENT PLANNING NOTE For [...] Chirag Mendiola M.D. / NATY 33:42 PM [facility] 07-25-2023 Miscellaneous Notes Enriqueta, pt's dtr, [...] that we will him an updated schedule. Dbera Quinn RN documented in this encounter [facility] 07-12-2023 Note HNO ID: [id number] Author: Jc Mendiola MD Service: ? Author [...] Visit completed when applicable. Jc Mendiola MD [facility] 07-11-2023 Note HNO ID: [id number] Author: Jc Mendiola MD Service: ? Author Type: Physician Type: Progress Notes Filed: 07/12/2023 12:35 AM Note Text: JOSE CAN [id number] 07/11/2023 [facility] Radiation Oncology [facility] RADIATION ONCOLOGY SIMULATION NOTE DATE OF SIMULATION: [...] 3D space. These images were imported into [employer] Prostate planning system where a plan was generated. ASSESSMENT/PLAN: Patient tolerated simulation procedure well. Electronically Signed Chirag Mendiola M.D. / NATY :19 PM [facility] 07-11-2023 History of Present illness Narrative JOSE CAN [id number] 07/11/2023 [facility] Radiation Oncology [facility] RADIATION ONCOLOGY SIMULATION NOTE DATE OF SIMULATION: [...] 3D space. These images were imported into [email or web address] Prostate planning system where a plan was generated. ASSESSMENT/PLAN: Patient tolerated simulation procedure well. Electronically Signed Chirag Mendiola M.D. / NATY :19 PM documented in this encounter [facility] 05-29-2023 Procedure note [facility] 05-03-2023 Miscellaneous Notes Patients daughter called back [...] done per Dr Franco at [facility] in 2016. It was normal. Dr Mendiola-- please advise. Nichelle Elkins, RN documented in this encounter [facility] 02-16-2023 Note HNO ID: [id number] Author: Jc Mendiola MD Service: ? 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 [facility] 02-05-2023 Hospital Discharge instructions Patient Education [...] the likelihood that the cancer will spread. Dawson 6 or lower: This indicates that the cancer cells look similar to normal prostate cells (well differentiated). Dawson 7: This indicates that the cancer cells [...] stress of having cancer. General instructions Take qwgn-rzl-zwanhce and prescription medicines only as told by your health care provider. If you have to go to the hospital, notify your cancer specialist (oncologist). Keep all follow-up visits. This is important. Where to find more information [employer]: www.cancer.org [employer] [employer] Clinical Oncology: www.cancer.net National Cancer Rogers: www.cancer.gov Contact a health care provider if: [...] provider. Document Revised: 12/07/2021 Document Reviewed: 12/07/2021 appbackr Patient Education 2022 [employer]. Follow Up Care 01/04/2023 12:26:51 With:LADAN EDWARDS, Abran Darling, URL Address: [facility] [address] [place] [address]- [phone] When:Within 6 Month(s) Comments:Will refer to Dr. Mendiola [facility]23 Hospital Discharge instructions Patient Education 01/16/2023 [...] for your post-operative appointment in 1-2 weeks [phone] or [phone] Follow Up Care 01/04/2023 11:45:40 With:Abran OCHOA Address: [facility] [address] [place] [address]- [facility] (1) When: Unknown Comments:Keep scheduled appointment [facility] 12-04-2022 Hospital Discharge instructions Patient Education [...] urethra. Follow these instructions at home: Take tzff-fuc-rzfwset and prescription medicines only as told by [...] 09/10/2006 Document Revised: 08/05/2019 Document Reviewed: 10/15/2017 appbackr Patient Education [employer]. Follow Up Care 09/22/2022 08:10:59 With:Abran OCHOA MD, URL Address: [facility] [address] [place] [id number] When: Unknown [facility] 02-23-2022 Hospital Discharge instructions Follow Up Care 02/23/2022 13:31:33 With:Abran OCHOA MD, URL Address: [address] [place] [address] When: Unknown [facility] Evaluation + Plan note Future Appointments Appointment Date:12/04/2022 12:15:00 PM Scheduled Provider:Abran OCHOA MD Location:[facility] Appointment Type:URO Office Visit [facility] Evaluation + Plan note Future Appointments Appointment Date:12/07/2023 08:00:00 AM Scheduled Provider:Abran OCHOA MD Location:[facility] Appointment Type:URO Office Visit [facility] Evaluation + Plan note Future Appointments Appointment Date:02/05/2023 08:30:00 AM Scheduled Provider:Abran OCHOA MD [facility] Type:[facility]O Office Visit Appointment Date:12/07/2023 08:00:00 AM Scheduled Provider:Abran OCHOA MD [facility] App[facility] Type:URO Office Visit Diagnostic Tests PendingProstate Histology ([facility]) 01/16/23 [facility] Evaluation + Plan note Future Appointments Appointment Date:12/07/2023 08:00:00 AM Scheduled Provider:Abran OCHOA MD [facility] App[facility] Type:URO Office Visit Diagnostic Tests PendingPSA Total 02/05/23 [facility] Evaluation + Plan note Future Appointments Appointment Date:10/08/2023 09:30:00 AM Scheduled Provider:Abran OCHOA MD [facility] App[facility] Type:URO Office Visit Appointment Date:12/07/2023 08:00:00 AM Scheduled Provider:Abran OCHOA MD [facility] App[facility] Type:URO Office Visit [facility] Evaluation + Plan note Future Appointments Appointment Date:12/28/2023 08:00:00 AM Scheduled Provider:Abran OCHOA MD [facility] App[facility] Type:URO Office Visit Diagnostic Tests PendingPSA Total 10/08/23 [facility] Evaluation + Plan note Future Appointments Appointment Date:07/04/2024 09:15:00 AM Scheduled Provider:Abran OCHOA MD Location:[facility] Appointment Type:URO Office Visit Diagnostic Tests PendingPSA Total 04/24/24 [facility] Evaluation note No assessment inform ation available [facility] Work Phone: Evaluation note Diagnosis Rectal bleeding- Primary Hemorrhage of rectum and anus Constipation, unspecified constipation type Prostate cancer (HCC) Malignant neoplasm of prostate [facility] Malignant neoplasm of prostate (HCC)- Primary Malignant neoplasm of prostate [facility] Diagnosis Onset Date Resolution Status Temporal arteritis acute [facility] Work Phone: History and physical note Author Juan Jiang [facility] May 29, 2023 8:21am Note Date/Time May 29, 2023 8:21am [facility] [address] [place] [address] Gastroenterology H&P Signed Patient: Jose Can MR#: [id number] : 1940 Acct:[id number] Age/Sex: 82 / M Adm Date: 3 Loc: Room: Type: [facility] Attending Dr: Juan Jiang MD Copies to: [...] <Electronically signed by Juan Jiang MD> 05/29/23820 [facility] Work Phone: Hospital course Narrative No data available for this section [facility] Hospital Discharge instructions Additional Instructions DISCHARGE INSTRUCTIONS [...] years. -Follow up with PCP. -Office number [phone]. [facility] Work Phone: Hospital Discharge instructions No data available for this section [facility] progress note No data available for this section [facility] reason for referral (narrative) , Refer to Dr. Mendiola for [place] [facility] Referred by: LADAN EDWARDS, Abran Darling [facility] Summary Purpose Family History No Family History Records Found Relationship Condition Age at Onset Recorded Date/T yosi father Unknown Not Specified Unknown Relationship Condition Age at Onset Recorded Date/T yosi father Unknown Heart disease Unknown Not Specified Unknown Malignant neoplasm Unknown Advance Directives No Advanced Directives Records Found Advance Directive Response Recorded Date/ Time Advance Directives No December 06, 023 8:46am Chief Complaint and Reason for [...] content) DATE CREATED AUTHOR 09/22/[address] [facility] dical Specialist DATE CREATED AUTHOR AUTHOR'S ORGANIZ ATION 10/18/2022 [facility] DATE CREATED AUTHOR AUTHOR'S ORGANIZ ATION 10/14/2023 [facility] DATE CREATED AUTHOR AUTHOR'S ORGANIZ ATION 12/21/[address] 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 Relationship Specialty Start Date End Date Martir Herbert II [address] [place] [address] PCP - General Internal Medicine 02/06/23 [employer] 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 Relationship Specialty Start Date End Date Martir Herbert II, MD [address] [place] [address] PCP - General Internal Medicine 02/06/23 Team Status: Inactive Member Role Status Dates Martir Herbert II MD Primary Care Provider Active Juan Jiang MD Attending Provider Active [employer] 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 Relationship 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 Start Date End Date Martir Hrebert II, MD [address] [place] [address] PCP - General Internal Medicine 02/06/23 [employer] 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 Relationship Specialty Start Date End Date Martir Herbert II, MD [address] [place] [address] PCP - General Internal Medicine 02/06/23 F[employer] 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 Relationship Specialty Start Date End Date Martir Herbert II, MD [address] [place] [address] PCP - General Internal Medicine 02/06/23 Felt [employer] 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 Relationship Specialty Start Date End Date Martir Herbert II, MD [address] [place] [address] PCP - General Internal Medicine 02/06/23 Team [...] or prosecute any alcohol or drug abuse patient.[facility] the event this information is protected by the Federal Confidentiality of Alcohol and Drug Abuse Patient Records regulations: The Federal rules restrict any use of the information to criminally investigate or prosecute any alcohol or drug abuse patient.[facility] the event this information is protected by the Federal Confidentiality of Alcohol and Drug Abuse Patient Records regulations: The Federal rules restrict any use of the information to criminally investigate or prosecute any alcohol or drug abuse patient.[facility] the event this information is protected by the Federal Confidentiality of Alcohol and Drug Abuse Patient Records regulations: The Federal rules restrict any use of the information to criminally investigate or prosecute any alcohol or drug abuse patient.[facility] the event this information is protected by the Federal Confidentiality of Alcohol and Drug Abuse Patient Records regulations: The Federal rules restrict any use of the information to criminally investigate or prosecute any alcohol or drug abuse patient.[facility] the event this information is protected by the Federal Confidentiality of Alcohol and Drug Abuse Patient Records regulations: The Federal rules restrict any use of the information to criminally investigate or prosecute any alcohol or drug abuse patient.[facility] the event this information is protected by the Federal Confidentiality of Alcohol and Drug Abuse Patient Records regulations: The Federal rules restrict any use of the information to criminally investigate or prosecute any alcohol or drug abuse patient.[facility] Reason for Visit (unrecogniz ed section and [...] BE BASED ON THE PRIMARY CLINICAL RECORDS. [facility] [employer] provides no warranty or guarantee of the accuracy or completeness of information in this document.
[2024-02-11 08:01] LABS: Erythrocyte Sedimentation Rate 7 mm/hr (<=20)
[2024-02-11 09:01] LABS: C Reactive Protein <0.50 mg/dL (<=0.50)
== END 2024-02-11 07:22 | disposition home or self-care (01) ==
LOC: LAB 07:22
PROVIDERS: PCP Internal Medicine; Visit Provider Internal Medicine Rheumatology
DX: M31.6 Other giant cell arteritis (principal); M19.90 Unspecified osteoarthritis, unspecified site; Z51.81 Encounter for therapeutic drug level monitoring
CPT/HCPCS: 36415; 85652; 86140

== ENCOUNTER 2024-04-07 07:13 | Outpatient (OUT) | payer MEDICARE, OTHER, SELFPAY ==
[2024-04-07 08:25] LABS: Prostate Specific Antigen Dx 0.28 ng/mL (<=4.00)
== END 2024-04-07 07:14 | disposition home or self-care (01) ==
LOC: LAB 07:14
PROVIDERS: PCP Internal Medicine; Visit Provider Urology
DX: C61 Malignant neoplasm of prostate (principal)
CPT/HCPCS: 36415; 84153

== ENCOUNTER 2024-04-07 07:18 | Outpatient (OUT) | payer MEDICARE, OTHER, SELFPAY ==
[2024-04-07 08:36] LABS: Erythrocyte Sedimentation Rate 24 mm/hr (<=20)
[2024-04-07 08:41] LABS: C Reactive Protein 0.56 mg/dL (<=0.50)
== END 2024-04-07 07:19 | disposition home or self-care (01) ==
LOC: LAB 07:19
PROVIDERS: PCP Internal Medicine; Visit Provider Internal Medicine Rheumatology
DX: C61 Malignant neoplasm of prostate (principal); M31.6 Other giant cell arteritis; M19.90 Unspecified osteoarthritis, unspecified site; Z51.81 Encounter for therapeutic drug level monitoring
CPT/HCPCS: 36415; 84153; 85652; 86140

== ENCOUNTER 2024-05-27 07:24 | Outpatient (OUT) | payer MEDICARE, OTHER, SELFPAY ==
--- OUTSIDE RECORDS SUMMARY | 2024-05-27 07:29 | XMS_ITS | CCD ---
Author Organization [facility]ini[facility] Care Team Providers Care [employer]er [employer] Name Role Phone MARTIR HERBERT Primary Care [...] COBIAN MD, Daniel B Primary Care Provider [phone] MANGO Herbert Primary Care Provider MD Juan Jiang Attending Provider MANGO Herbert Primary Care Provider MD Armani Kelly Attending Provider [phone] Abran OCHOA Attending Unavailable Abran OCHOA Attending Unavailable OCHOA, Abran R Attending Unavailable OCHOAAbran R Attending Unavailable OCHOAAbran R Attending Unavailable OCHOA, Abran R Attending Unavailable OCHOAAbran Attending Unavailable Abran OCHOA Attending Unavailable Martir Herbert Primary Care Unavailable Juan Jiang Attending Unavailable Juan Jiang Admitting Unavailable Armani Kelly Attending Unavailable Armani Kelly Admitting Unavailable Martir Herbert Primary Care Unavailable MARTIR HERBERT Attending Unavailable MARTIR HERBERT Attending Unavailable MARTIR HERBERT Attending Unavailable MARTIR HERBERT Attending Unavailable Keon COBIAN MD, Daniel B Primary Care Provider [phone] MARTIR HERBERT II Primary Care Unavailable Jc MENDIOLA Attending Unavailable MARTIR HERBERT II Primary Care Unavailable Jc MENDIOLA Attending Unavailable MARTIR HERBERT II Primary Care Unavailable Jc MENDIOLA Attending Unavailable MARTIR HERBERT II Primary Care Unavailable Jc MENDIOLA Attending Unavailable MARTIR HERBERT II Primary Care Unavailable Jc MENDIOLA Attending Unavailable MARTIR HERBERT II Primary Care Unavailable Allergies Allergy Classification Reported Allergen(s) Allergy Type Date of Onset Reaction(s) Facility (9 sources) Penicillin; Translations: [penicillin] Drug Allergy Unknown (qualifier value) [facility] (9 sources) Sulfonamides; Translations: [sulfonamides] Drug allergy Unknown (qualifier value) [facility] (5 sources) Penicillins; Translations: [PENICILLINS] Drug allergy (disorder) 3 Hives [facility] (1 source) Sulfonamides (Antibiotic) Drug allergy (disorder) 3 [facility] (8 sources) Penicillins Drug Allergy 3 [facility] (11 sources) Sulfonamides (Antibiotic); Translations: [SULFA (SULFONAMIDE ANTIBIOTICS)] Drug Allergy 3 [facility] (1 source) Penicillins Drug allergy (disorder) 4 [facility] (1 source) Sulfonamides (Antibiotic) Drug allergy (disorder) 4 [facility] Medications Current Medications Medication Drug Class(es) Dates Sig (Normalized) Sig (Original) acetaminophen 325 mg / HYDROcodone bitartrate 7.5 mg oral tablet (1 source) Opioid Agonist Start: 01-04-2023 take 1 tablet by mouth once, then take 1 tablet by mouth every hour [place] 325 mg-7.5 mg oral tablet 1 tab(s), Oral, Once, 1 tab(s), Refill(s) 0, Take 1 hour prior to procedure, [facility]/pharmacy #[id number], 175, cm, 12/04/22 12:29:00 EDT, Height/Length Dosing, 89, kg, 12/04/22 12:29:00 EDT, Weight Dosing Start Date: 01/04/23 Status: Ordered aspirin 81 mg delayed release oral tablet (11 sources) Platelet Aggregation Inhibitor, Nonsteroidal Anti-inflammatory Drug Start: 05-29-2023 take 1 tablet by mouth once daily Aspirin (Aspir-81) 81 mg Tablet,Delayed Release (Dr/Ec) Active 81 MG PO Daily May 29, 2023 12:00am Comment on above: Take 81 mg by mouth once daily. Calcium Citrate (8 sources) calcium citrate (CITRACAL ORAL) Take by mouth. 0 Active Comment on above: Take by mouth. cholecalciferol, vitamin D3, (VITAMIN D3 ORAL) (8 sources) cholecalciferol, vitamin D3, (VITAMIN D3 ORAL) Take by mouth. 0 Active Comment on above: Take by mouth. Lactobacillus acidophilus (8 sources) Lactobacillus acidophilus (PROBIOTIC ORAL) Take by mouth. 0 Active Comment on above: Take by mouth. Lactobacillus Combination No.4 (Probiotic) 3 billion cell Capsule (3 sources) Start: 05-29-2023 take 3 capsules by mouth once daily Lactobacillus Combination No.4 (Probiotic) 3 billion cell Capsule Active 3000 MMU CELLS PO Daily May 29, 2023 12:00am administer with a meal lisinopril 10 mg oral tablet (19 sources) Angiotensin Converting Enzyme Inhibitor Start: 01-05-2023 lisinopril (ZESTRIL) 10 mg tablet Start: 10-28-2019 Co Lisinopril Refills(s) 0 Start Date: 10/28/19 Status: Ordered omega-3 acid ethyl esters (prison) 1000 mg oral capsule (11 sources) Start: 01-05-2023 omega-3 acid ethyl esters (LOVAZA) 1 gram capsule OTC PRODUCT (8 sources) OTC PRODUCT Eye and vision supplement 0 Active Comment on above: Eye and vision suppl ement oxybutynin chloride 5 mg oral tablet (2 sources) Cholinergic Muscarinic Antagonist Start: 12-28-2023 take 1 tablet by mouth at bedtime as needed oxybutynin 5 mg Tab 5 mg = 1 tab(s), Oral, Bedtime, PRN for urinary discomfort, # 30 tab(s), Refills(s) 11, Pharmacy: [facility]/pharmacy #[id number], 175, cm, 12/28/23 8:09:00 EDT, Height/Length Dosing, 88, kg, 12/28/23 8:09:00 EDT, Weight Dosing Start Date: 4/5/24 Status: Ordered take 1 tablet by mouth once alyssa y oxybutynin XL (DITROPAN XL) 5 mg 24 hr tablet Take 5 mg by mouth once daily. 0 Active Polyethylene Glycols (8 sources) polyethylene gly col 3350 (CLEARLAX ORAL) Take by mouth. 0 Active Comment on above: Take by mouth. predniSONE 20 mg oral tablet (4 sources) Start: 12-28-2023 predniSONE 20 mg Tab Refills(s) 0 Start Date: 12/28/23 Status: Ordered Start: 12-18-2023 take 60 mg by mouth once daily Prednisone Active 60 MG PO Daily December 18, 2023 12:00am Start: 12-18-2023 Prednisone Act vikki 20 MG PO December 18, 2023 12:00am take 3 tablets by mo uth once daily predniSONE (DELTASONE) 20 mg tablet Take 60 mg by mouth once daily. 0 Active simvastatin 10 mg oral tablet (19 sources) HMG-CoA Reductase Inhibitor Start: 01-05-2023 take 1 tablet by mouth once daily at bedtime simvastatin (ZOCOR) 10 mg tablet Take 10 mg by mouth daily at bedtime. 0 01/05/2023 Active Start: 01-05-2023 take 20 mg by mouth once daily Simvastatin Active 20 MG PO Daily May 29, 2023 12:00am Start: 10-28-2019 simvastatin Re fills(s) 0 Start Date: 10/28/19 Status: Ordered Vit D3-Vit K2-[place] Ext (3 sources) Start: 05-29-2023 take 1 capsule by mouth once daily Vit D3-Vit K2-[place] Ext Active 25 CAP PO Daily May 29, 2023 12:00am Vitamins A,C,U-Nqyu-Oqdaok (Preservision Areds) 4,296 mcg-226 mg-90 mg capsule (2 sources) Start: 12-18-2023 take 1 capsule by mouth twice daily Vitamins A,C,S-Idkt-Lobwpw (Preservision Areds) 4,296 mcg-226 mg-90 mg capsule Active 1 CAP PO Twice daily December 18, 2023 12:00am Problems Problem Classification Problem Date Documented Da te Episodic/Chronic Cancer of prostate (9 sources) Malignant neoplasm of prostate; Translations: [Malignant [...] Test Name Value Interpretation Reference Range Facil radha SALDANAon 04-10-2024 CNOV Office Visit (RADTSA ) JOSE CAN ([id number]) 1940 M Date Time Provider Department 04/10/24 9:45 AM Jc MENDIOLA During your visit today, we recorded the following information about you: Temperature Pulse Respiration Blood pressure 97.4 degrees 71/minute 18/minute 152/78 Weight 85.3 kg Nichelle Elkins RN 04/14/2024 10:59 AM Signed AUA 4 NATALIO Woodson G Phillip, MD 04/14/2024 10:59 AM Signed Radiation Oncology - Follow Up [...] Coffey, 61 sources, 23.67 millicurie. 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 He has further follow-up with dermatology. Denies any change in bladder or bowel function. PSA HISTORY: PSA. (no units) Date Value 12/24/2023 0.59 10/08/2023 1.55 ALLERGIES Allergen Reactions Penicillins Rash Sulfa (Sulfonamide * Rash predniSONE (DELTASONE) 20 mg tablet Take 60 mg by mouth once daily. oxybutynin XL (DITROPAN XL) 5 mg 24 hr tablet Take 5 mg by mouth once daily. simvastatin (ZOCOR) 10 mg tablet Take 10 mg by mouth daily at bedtime. lisinopril (ZESTRIL) 10 mg tablet omega-3 acid [...] Yes Medications to aid urination: y AUA: 4 Bowel movement frequency: 1/day Bowel movement quality: normal Androgen deprivation: Never. PHYSICAL EXAM: BP 152/78 Pulse 71 Temp 36.3 ?C (97.4 ?F) Resp 18 Wt 85.3 kg (188 lb 0.8 oz) SpO2 96% BMI 27.77 kg/m? KPS: 100 General Appearance: Alert and oriented. No acute distress. Rectal exam is deferred. ASSESSMENT/PLAN: Prostate adenocarcinoma, initial PSA 3.1, biopsy Duncombe score 3 + 4 = 7 (grade group 2), clinical stage T2a, N0, M0, stage IIB [T1-T2, N0, M0, PSA <20, GG 2] (AJCC 8th ed.), s/p TRUS Random and MR Targeted biopsy. Status post prostate brachytherapy implant 09/06/2023. Doing well with appropriate PSA response. He has continued urologic follow-up including PSA surveillance with Dr. Ochoa. No significant post radiation related issues. I will plan to see patient back in 1 year. Signed by: Jc Mendiola MD cc: Martir Herbert II, MD [address] [place] [address] Dr. Ochoa Allergies As of Date: 04/10/2024 Noted Allergy Reaction PENICILLINS 02/16/2023 2 - Rash SULFA (SULFONAMIDE ANTIBIOTICS) 02/16/2023 2 - Rash Date Reviewed: 04/10/2024 Reviewed by: Nichelle Elkins RN - Fully Assessed Primary Visit Diagnosis:Malignant neoplasm of prostate (HCC) [C61] Order(s):PSA (OUTSIDE) [[id number]] Order #: [id number] Prescriptions as of 04/14/2024 - predniSONE (DELTASONE) 20 mg tablet Take 60 mg by mouth once daily. - oxybutynin XL (DITROPAN XL) 5 mg 24 hr tablet Take 5 mg by mouth once daily. - simvastatin (ZOCOR) 10 mg tablet Take 10 mg by mouth daily at bedtime. - lisinopril (ZESTRIL) 10 mg tablet - [...] vision supplement Problem List As Of Date 04/10/2024 Noted Resolved Malignant neoplasm of prostate (HCC) [C61] 10/11/2023 Visit Notes: >> Nichelle Elkins RN [facility] Apr 10, 2024 9:32 AM Status: Signed AUA 4 Nichelle Elkins RN Disposition: Return in about 1 year (around 04/10/2025). Follow-up and Disposition History for Encounter Date Provider Department Center 04/10/2024 [id number] MEDNIOLA DEVIN Bautista Encounter Status:Closed by Jc MENDIOLA on 04/14/[address] [facility] Patient Educationon 12-28-19 Patient Education Urology Benign [...] Follow these instructions at home: ? Take [id number]-rzm-[id number] and prescription medicines only as told by [...] the medicine (more content not included)... Normal [facility] Urology Office/Clinic Noteon 12-28-2023 Urology Office/Clinic Note [...] IO s/p brachytherapy. Pt then presented to [facility] ER due to inability to urinate after catheter removal. Bladder scan was >500mL. Dc'd home with Mendoza catheter in place. Came to our office 09/21/23 for catheter removal per approval of PRW. No issues with urination after Mendoza was removed. See #2. Follow-up With When Contact Information Abran OCHOA MD, URL [address] [id number]- Additional Instructions: 6 mos w/ PSA Patient Education Benign Prostatic Hyperplasia I, Agata Durant, personally scribed for Dr. Ochoa on 12/28/2023 08:52:12. . Documentation recorded by the scribeAgata, accurately reflects the services(s) I performed and [...] Medications Co (more content not included)... Normal [facility] Comment on above: Result Comment: Elec tronically Signed By: Abran OCHOA MD\.br\Date and Time Signed: 12/28/23 08:53 EDT\.br\Electronically Co-Signed By: Agata Durant\.br\Date and Time Co-Signed: 12/28/23 08:52 EDT Lab Reportson 12-24-2023 Lab Reports [id number] Normal [facility] PSA (OUTSIDE)on 12-24-2023 [facility] Anisocytosis LM Ql (Bld)Orde red By: Arden Mairn on 12-19-2023 Anisocytosis Ql (Bld) Slight Fir [facility] Basic Metabolic Panelon 11-23 Anion gap [Moles/Vol] 9.1 mmol/L Normal 6.0-15.0 [facility] Comment on above: Performed By: #### S CAN CBC, BMP #### [address] Calcium [Mass/Vol] 8.5 mg/dL Low 8.6-10.3 [facility] Comment on above: Performed By: #### S CAN CBC, BMP #### [address] Chloride [Moles/Vol] 103 mmol/L Normal 98-107 [facility] Comment on above: Performed By: #### S CAN CBC, BMP #### [address] CO2 [Moles/Vol] 26.0 mmol/L Normal 21.0-31.0 [facility] Comment on above: Performed By: #### S CAN CBC, BMP #### [address] Creatinine [Mass/Vol] 0.74 mg/dL Normal 0.70-1.30 [facility] Comment on above: Performed By: #### S CAN CBC, BMP #### [facility] [address] [place] [address] [place] Creatinine Clr Calc Pharmacy 78.34 Normal [facility] Comment on above: Result Comment: PERF ORMED BY: [place] [address] PATHOLOGIST PBX OPERATOR CAREN DALEY M.D. Performed By: #### S CAN CBC, BMP #### [facility] [address] [place] [address] [place] GFR/1.73 sq M.predicted MDRD (S/P/Bld) [Vol rate/Area] mL/min/{1.73_m2} Normal [facility] Comment on above: Performed By: #### S CAN CBC, BMP #### [facility] [address] Glucose [Mass/Vol] 88 mg/dL Normal 70-100 [facility] Comment on above: Result Comment: [facility] Glucose Reference Range is dependent on time and content of last meal. Glucose of more than 200 mg/dL in a nonstressed, ambulatory subject supports the diagnosis of Diabetes Mellitus. ADA recommended reference range Performed By: #### S CAN CBC, BMP #### [address] Potassium [Moles/Vol] 4.1 mmol/L Normal 3.5-5.1 [facility] Comment on above: Performed By: #### S CAN CBC, BMP #### [address] Sodium [Moles/Vol] 134 mmol/L Low 136-145 [facility] Comment on above: Performed By: #### S CAN CBC, BMP #### [facility] [address] Urea nitrogen [Mass/Vol] 23 mg/dL Normal 7-25 [facility] Comment on above: Performed By: #### S CAN CBC, BMP #### [place] [address] [place] Basophils Auto (Bld) [#/Vol] Ordered By: Arden Marin on 12-19-2023 Basophils (Bld) [#/Vol] 0.1 10*3/uL 0.0-0.2 [facility] Basophils/100 WBC Auto (Bld) Ordered By: Arden Marin on 12-19-2023 Basophils/100 WBC (Bld) 0.4 % . [facility] Calcium [Mass/volume] in Ser um or PlasmaOrdered By: Arden Marin on 12-19-2023 Calcium [Mass/Vol] 8.5 mg/dL 8.6-10.3 [facility] Carbon dioxide, total [Moles /volume] in Serum or PlasmaOrdered By: Arden Marin on 12-19-2023 CO2 [Moles/Vol] 26.0 mmol/L 21.0-31.0 [facility] Chloride [Moles/volume] in S jerry or PlasmaOrdered By: Arden Marin on 12-19-2023 Chloride [Moles/Vol] 103 mmol/L 98-107 [facility] Creatinine [Mass/volume] in Serum or PlasmaOrdered By: Arden Marin on 12-19-2023 Creatinine [Mass/Vol] 0.74 mg/dL 0.70-1.30 [facility] ECG 12 lead ECGon 12-19-2023 ECG 12 lead ECG [facility] [place] [address] Electrocardiograph Report Signed Patient: Jose Can MR#: [id number] : 1940 Acct:[id number] Age/Sex: 83 / M ADM Date: 12/19/23 Loc: [place] Room: Type: [facility] Attending Dr: Armani Kelly MD [...] Referred By: Electronically Signed By:ABRAN SRIVASTAVA MD FACC Transcribed By: MUS Signed By Pal Srivastava MD 12/19/23 0651 Normal [facility] Eosinophils Auto (Bld) [#/Vo l]Ordered By: Arden Marin on 12-19-2023 Eosinophils (Bld) [#/Vol] 0.1 10*3/uL 0.0-0.45 [facility] Eosinophils/100 WBC Auto (Bl d)Ordered By: Arden Marin on 12-19-2023 Eosinophils/100 WBC (Bld) 0.3 % . [facility] Erythrocyte distribution wid th Auto (RBC) [Ratio]Ordered By: Arden Marin on 12-19-2023 Erythrocyte distribution width (RBC) [Ratio] 13.9 % 12.0-14.8 [facility] Glucose [Mass/volume] in Ser um or PlasmaOrdered By: Arden Marin on 12-19-2023 Glucose [Mass/Vol] 88 mg/dL 70-100 [facility] Comment on above: ADA recommended refe rence rangeRandom Glucose Reference Range is dependent on time and content of last meal. Glucose of more than 200 mg/dL in a nonstressed, ambulatory subject supports the diagnosis of Diabetes Mellitus. Hematocrit Auto (Bld) [Volum e fraction]Ordered By: Arden Marin on 12-19-2023 Hematocrit (Bld) [Volume fraction] 40.8 % 38.8-50.0 [facility] Hemoglobin [Mass/volume] in BloodOrdered By: Arden Marin on 12-19-2023 Hemoglobin (Bld) [Mass/Vol] 13.4 g/dL 13.0-17.0 [facility] Isaías 12-19-2023 L Specimen: Received: 12/19/23 Status: RANDI Capellan Num: [id number] Spec Type: Surgical Subm Dr: Armani Kelly MD Tissues: A Artery Temporal- Biopsy (RT TEMPORAL ARTERY BX) Procedures: Trichrome/2, CD45/2, HE/20, Gross/Micro L4, CD20/2, CD3/2, CD68/2 Age/ Patient Sex Location Account Attending Physician Jose Can/M [place] [id number] Armani Kelly MD SPEC NUM: [id number] RECD: 12/19/23 STATUS: RANDI CAPELLAN NUM: [id number] FAIZAN: 12/19/[address]: Armani Kelly MD ENTERED: 12/19/23 [place] [...] Clinical Information Right temporal arteritis -------- Specimen: [id number] Received: 12/19/23 Status: RANDI Marilia Num: [id number] Spec Type: Surgical Subm Dr: Armani Kelly MD Tissues: A Artery Temporal- Biopsy (RT TEMPORAL ARTERY BX) Procedures: Trichrome/2, CD45/2, HE/20, Gross/Micro L4, CD20/2, CD3/2, CD68/2 -------- Patient: Jose Can [id number] (Continued) -------- Specimen: [id number] Received: 12/19/23 (Continued) Signed (signature on file) Mee Bush MD 12/21/231838 -------- Specimen: [id number] Received: 12/19/23 Status: RANDI Marilia Num: [id number] Spec Type: Surgical Subm Dr: Armani Kelly MD Tissues: A Artery Temporal- Biopsy (RT TEMPORAL ARTERY BX) Procedures: Trichrome/2, CD45/2, HE/20, Gross/Micro L4, CD20/2, CD3/2, CD68/2 -------- Patient: Jose Can [id number] (Continued) -------- Specimen: [id number] Received: 12/19/23 (Continued) Gross Description Received fresh labeled with the patient's name, date of and temporal artery biopsy right is a 7.8 x 0.3 cm cabrera-pink tubular tissue with attached silver metal clips. Sectioning reveals a patent lumen. Entirely submitted in two cassettes labeled A1-A2. CPT Codes 40088 24032, 51170a0 28798 -------- -------- Specimen: [id number] Received: 12/19/23 Status: RANDI Capellan Num: [id number] Spec Type: Surgical Subm Dr: Armani Kelly MD Tissues: A Artery Temporal- Biopsy (RT TEMPORAL ARTERY BX) Procedures: Trichrome/2, CD45/2, HE/20, Gross/Micro L4, CD20/2, CD3/2, CD68/2 -------- Patient: Jose Can [id number] (Continued) -------- Signed (signature on file) Matthew-Joni Bush MD 12/21/23 1839 Normal [facility] Leukocytes [#/volume] correc claudia for nucleated erythrocytes in Blood by Automated counOrdered By: Arden Marin on 12-19-2023 WBC corrected for nucl RBC Auto (Bld) [#/Vol] 16.2 10*3/uL 4.1-10.5 [facility] Lymphocytes Auto (Bld) [#/Vo l]Ordered By: Arden Marin on 12-19-2023 Lymphocytes (Bld) [#/Vol] 2.9 10*3/uL 1.00-4.8 [facility] Lymphocytes/100 WBC Auto (Bl d)Ordered By: Arden Marin on 12-19-2023 Lymphocytes/100 WBC (Bld) 17.7 % . [facility] MCH Auto (RBC) [Entitic mass ]Ordered By: Arden Marin on 12-19-2023 MCH (RBC) [Entitic mass] 28.9 pg 27.5-35.2 [facility] MCHC Auto (RBC) [Mass/Vol]Or dered By: Arden Marin on 12-19-2023 MCHC (RBC) [Mass/Vol] 32.8 g/dL 32.5-35.6 [facility] MCV Auto (RBC) [Entitic vol] Ordered By: Arden Marin on 12-19-2023 MCV (RBC) [Entitic vol] 88.0 fL 83.5-101 [facility] Microcytes LM Ql (Bld)Ordere d By: Arden Marin on 12-19-2023 Microcytes Ql (Bld) Slight [facility] Monocytes Auto (Bld) [#/Vol] Ordered By: Arden Marin on 12-19-2023 Monocytes (Bld) [#/Vol] 1.3 10*3/uL 0.0-0.8 [facility] Monocytes/100 WBC Auto (Bld) Ordered By: Arden Marin on 12-19-2023 Monocytes/100 WBC (Bld) 8.3 % . [facility] Neutrophils Auto (Bld) [#/Vo l]Ordered By: Arden Marin on 12-19-2023 Neutrophils (Bld) [#/Vol] 11.9 10*3/uL 1.8-7.7 [facility] Neutrophils/100 WBC Auto (Bl d)Ordered By: Arden Marin on 12-19-2023 Neutrophils/100 WBC (Bld) 73.3 % . [facility] No Panel InformationOrdered By: Arden Marin on 12-19-2023 Estimated GFR (CKD-EPI) > 60.0 mL/Min [facility] Creatinine Clearance (Chem 78.34 [facility] Nucleated erythrocytes [Pres ence] in Blood by Automated countOrdered By: Arden Marin on 12-19-2023 Nucleated RBC Auto Ql (Bld) 0.1 /100{WBC} 0-0.5 [facility] Ovalocyte detectionOrdered B y: Arden Marin on 12-19-2023 Ovalocytes LM Ql (Bld) [facility] Platelet adequacy [Presence] in Blood by Light microscopyOrdered By: Arden Marin on 12-19-2023 Platelets LM Ql (Bld) Normal Normal [facility] Platelet mean volume Auto (B ld) [Entitic vol]Ordered By: Arden Marin on 12-19-2023 Platelet mean volume (Bld) [Entitic vol] 7.4 fL 6.6-10.1 [facility] Platelet morphology finding [Identifier] in BloodOrdered By: Arden Marin on 12-19-2023 Platelet morphology finding Nom (Bld) Normal Normal [facility] Platelets Auto (Bld) [#/Vol] Ordered By: Arden Marin on 12-19-2023 Platelets (Bld) [#/Vol] 364 10*3/uL 150-450 [facility] Platelets Large [Presence] i n Blood by Light microscopyOrdered By: Arden Marin on 12-19-2023 Platelets Large LM Ql (Bld) Slight [facility] Poikilocytosis [Presence] in Blood by Light microscopyOrdered By: Arden Marin on 12-19-2023 Poikilocytosis LM Ql (Bld) Slight [facility] Potassium [Moles/volume] in Serum or PlasmaOrdered By: Arden Marin on 12-19-2023 Potassium [Moles/Vol] 4.1 mmol/L 3.5-5.1 [facility] RBC Auto (Bld) [#/Vol]Ordere d By: Arden Marin on 12-19-2023 RBC (Bld) [#/Vol] 4.64 10*6/uL 3.90-5.60 [facility] RBC morphologyOrdered By: Kylah Marin on 12-19-2023 RBC morphology finding Nom (Bld) N/A [facility] Scan and CBCon 12-19-2023 Anisocytosis Ql (Bld) Slight Normal [facility] Comment on above: Performed By: #### S CAN CBC, BMP #### [facility] [address] [place] [address] Basophils (Bld) [#/Vol] 0.1 10*3/uL Normal 0.0-0.2 [facility] Comment on above: Performed By: #### S CAN CBC, BMP #### [facility] [address] [place] [address] [place] Basophils/100 WBC (Bld) 0.4 % Normal . [facility] Comment on above: Performed By: #### S CAN CBC, BMP #### [facility] [address] [place] [address] [place] Eosinophils (Bld) [#/Vol] 0.1 10*3/uL Normal 0.0-0.45 [facility] Comment on above: Performed By: #### S CAN CBC, BMP #### [facility] [address] Eosinophils/100 WBC (Bld) 0.3 % Normal . [facility] Comment on above: Performed By: #### S CAN CBC, BMP #### [address] Erythrocyte distribution width (RBC) [Ratio] 13.9 % Normal 12.0-14.8 [facility] Comment on above: Performed By: #### S CAN CBC, BMP #### [address] Hematocrit (Bld) [Volume fraction] 40.8 % Normal 38.8-50.0 [facility] Comment on above: Performed By: #### S CAN CBC, BMP #### [address] Hemoglobin (Bld) [Mass/Vol] 13.4 g/dL Normal 13.0-17.0 [facility] Comment on above: Performed By: #### S CAN CBC, BMP #### [address] Large Platelets Slight Normal [facility] Comment on above: Result Comment: PERF ORMED BY: [place] [address] PATHOLOGIST PBX OPERATOR CAREN DALEY M.D. Performed By: #### S CAN CBC, BMP #### [address] Lymphocytes (Bld) [#/Vol] 2.9 10*3/uL Normal 1.00-4.8 [facility] Comment on above: Performed By: #### S CAN CBC, BMP #### [address] Lymphocytes/100 WBC (Bld) 17.7 % Normal . [facility] Comment on above: Performed By: #### S CAN CBC, BMP #### [address] MCH (RBC) [Entitic mass] 28.9 pg Normal 27.5-35.2 [facility] Comment on above: Performed By: #### S CAN CBC, BMP #### [address] MCV (RBC) [Entitic vol] 88.0 fL Normal 83.5-101 [facility] Comment on above: Performed By: #### S CAN CBC, BMP #### [address] Mean Corpuscular HGB Conc 32.8 g/dL Normal 32.5-35.6 [facility] Comment on above: Performed By: #### S CAN CBC, BMP #### [address] Microcytosis Slight Normal [facility] Comment on above: Performed By: #### S CAN CBC, BMP #### [address] Monocytes (Bld) [#/Vol] 1.3 10*3/uL High 0.0-0.8 [facility] Comment on above: Performed By: #### S CAN CBC, BMP #### [address] Monocytes/100 WBC (Bld) 8.3 % Normal . [facility] Comment on above: Performed By: #### S CAN CBC, BMP #### [address] Neutrophils (Bld) [#/Vol] 11.9 10*3/uL High 1.8-7.7 [facility] Comment on above: Performed By: #### S CAN CBC, BMP #### [place] [address] [place] Neutrophils/100 WBC (Bld) 73.3 % Normal . [facility] Comment on above: Performed By: #### S CAN CBC, BMP #### [address] NRBC% 0.1 /100{WBC} Normal 0-0.5 [facility] Comment on above: Performed By: #### S CAN CBC, BMP #### [place] [address] Ovalocytes Slight Normal [facility] Comment on above: Performed By: #### S CAN CBC, BMP #### [address] Platelet Estimate Normal Normal Normal [facility] Comment on above: Performed By: #### S CAN CBC, BMP #### [address] Platelet mean volume (Bld) [Entitic vol] 7.4 fL Normal 6.6-10.1 [facility] Comment on above: Performed By: #### S CAN CBC, BMP #### [address] Platelet Morphology Normal Normal Normal [facility] Comment on above: Performed By: #### S CAN CBC, BMP #### [address] Platelets (Bld) [#/Vol] 364 10*3/uL Normal 150-450 [facility] Comment on above: Performed By: #### S CAN CBC, BMP #### [address] Poikilocytosis Slight Normal [facility] Comment on above: Performed By: #### S CAN CBC, BMP #### [address] RBC (Bld) [#/Vol] 4.64 10*6/uL Normal 3.90-5.60 [facility] Comment on above: Performed By: #### S CAN CBC, BMP #### [address] WBC (Bld) [#/Vol] 16.2 10*3/uL High 4.1-10.5 [facility] Comment on above: Performed By: #### S CAN CBC, BMP #### [address] Serum or plasma anion gap de terminationOrdered By: Arden Marin on 12-19-2023 Anion gap [Moles/Vol] 9.1 mmol/L 6.0-15.0 [facility] Sodium [Moles/volume] in Ser um or PlasmaOrdered By: Arden Marin on 12-19-2023 Sodium [Moles/Vol] 134 mmol/L 136-145 [facility] Urea nitrogen [Mass/volume] in Serum or PlasmaOrdered By: Arden Marin on 12-19-2023 Urea nitrogen [Mass/Vol] 23 mg/dL 7-25 [facility] WBC Auto (Bld) [#/Vol]Ordere d By: Arden Marin on 12-19-2023 WBC (Bld) [#/Vol] 16.2 10*3/uL 4.1-10.5 [facility] Consultation Noteon 10-12-19 Consultation Note [id number]#1. 00TIFF Normal [facility] CNOVon 10-11-2023 CNOV Office Visit (RADTSA ) JOSE CAN ([id number]) 1940 M Date Time Provider Department 10/11/23 9:15 AM Jc MENDIOLA During your visit today, we recorded the following information about you: Temperature Pulse Respiration Blood pressure 97.3 degrees 87/minute 16/minute 125/67 Weight 86 kg Jc Mendiola MD 10/11/2023 9:38 AM Signed Radiation Oncology - Follow Up Note PATIENT NAME: Jose Can PATIENT DIAGNOSIS: Prostate adenocarcinoma, initial PSA 3.1, biopsy Duncombe score 3 + 4 = 7 (grade [...] Mendiola MD cc: Martir Herbert II, MD [address] [place] [address] [address] [place] [address] Debra Anthony, GABO 10/11/2023 9:38 AM Signed AUA= 5 Allergies As of Date: 10/11/2023 Noted Allergy Reaction PENICILLINS 02/16/2023 2 - Rash SULFA (SULFONAMIDE ANTIBIOTICS) 02/16/2023 2 - Rash Date Reviewed: 09/19/2023 Reviewed by: Debra Quinn LPN - Fully Assessed Primary Visit Diagnosis:Malignant neoplasm of prostate (HCC) [C61] Order(s):PSA (OUTSIDE) [6768461] Order #: [id number] PSA/PROSTSPECAG DIAG [SQPSA] Order #: [id number] FUTURE Prescriptions as of 10/11/2023 - simvastatin [...] for Encounter Date Provider Department Center 10/11/2023 [id number] MENDIOLA [facility] Encounter Status:Closed by Jc MENDIOLA on 10/11/[address] [facility] Consultation Noteon 10-09-19 Consultation Note [id number]# 1.00TIFF [facility] ED Note-Physicianon 10-09-19 ED Note-Physician [id number]#[address]. 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 Take zwdc-xvp-jsvgfss or prescription medicines. ? Eat foods that are high in fiber, such as beans, whole grains, and fresh fruits and vegetables. ? Limit foods that are high in fat and processed sugars, such as fried or sweet foods. General instructions ? Take zcaa-ipz-bssfjjv and prescription medicines only as told by [...] away if: (more content not included)... Normal [facility] Urology Office/Clinic Noteon 10-08-2023 Urology Office/Clinic [...] 09/12/23 in our office. Then presented to [facility] ER due to inability to urinate after [...] (7 mm x 4mm). TRUS/bx 01/16/23 - Alap 6 (3+3) in 4 cores and Duncombe 7 (3 +4) in 1 core. Brachytherapy [...] our office after brachytherapy. Then presented to [facility] ER due to inability to urinate after catheter removal. Bladder scan was >500mL. Dc'd home with Mendoza catheter in place. Came to our office 09/21/23 for catheter removal per approval of PRW. Reports he has not had any issues urinating since. Follow-up With When Contact Information LADAN EDWARDS, Abran Darling, URL [facility] [address], [place] [address]- [phone] Additional Instructions: 3 mos w/ PSA Patient Education Brachytherapy for Prostate Cancer, Care After Michaela Lopez, personally scribed for Dr. Ochoa on 10/08/2023 [...] hernia rep (more content not included)... Normal [facility] Comment on above: Result Comment: Elec tronically Signed By: Abran OCHOA MD\.br\Date and Time Signed: 10/08/23 10:36 EST\.br\Electronically Co-Signed By: Michaela Herbert\.br\Date and Time Co-Signed: 10/08/23 10:35 EST Ambulatory Visit Summaryon 1 Ambulatory Visit Summary PAMELLA JOSE J :1940 Visit Date:09/21/2023 Ambulatory Visit Instructions Your [...] EDWARDS, Abran Darling Where: [facility] Normal [address] [place] [address]- \.br\ Medications\.br \ What When Instructions\.b r\ [...] for choosing us for your care.\.br\ \.br\ [facility] CNOVon 09-19-2023 CNOV Office Visit (RADTSA ) JOSE CAN ([id number]) 1940 M Date Time Provider Department 09/19/23 [...] MD cc: Martir Herbert II, MD [address] [place] [address] No referring provider defined for this encounter. Allergies As of Date: 09/19/2023 Noted Allergy Reaction PENICILLINS 02/16/2023 2 - Rash SULFA (SULFONAMIDE ANTIBIOTICS) 02/16/2023 2 - Rash Date Reviewed: 09/19/2023 Reviewed by: Debra Quinn LPN - Fully Assessed Reason for Visit: Prostate Cancer [590] Primary Visit Diagnosis:Malignant neoplasm of prostate (HCC) [C61] Order(s):PSA/PROSTSPE CAG DIAG [SQPSA] Order #: [id number] FUTURE Prescriptions as of 09/19/2023 - simvastatin [...] for Encounter Date Provider Department Center 09/19/2023 [id number] MENDIOLA Encounter Status:Closed by Jc MENDIOLA on 09/19/[address] [facility] Ambulatory Visit Summaryon 1 11-13-2022 Ambulatory Visit [...] EDWARDS, Abran Darling Where: [facility] [address] [place] [id number] \.br\ Medications\.br \ What When Instructions\.b r\ [...] for choosing us for your care.\.br\ \.br\ [facility] Lab Reportson 09-07-2023 Lab Reports [id number]#1 .00TIFF Normal [facility] Operative Reporton Operative Report [id number]#1 .00TIFF Normal [facility] RAD - MISCon 09-07-2023 RAD - MISC [id number]#1 .00TIFF Normal [facility] CNOVon 09-06-2023 CNOV Office Visit (RADTSA ) JOSE CAN ([id number]) 1940 M Date Time Provider Department 09/06/23 9:00 AM Jc MENDIOLA During your visit today, we recorded the following information about you: Jc Mendiola MD 09/06/2023 3:18 PM Signed Date: 09/06/23 Facility: [facility] Procedure: prostate transperineal brachytherapy implant [...] patient identified by name and hospital ID [facility]. After anesthesia administered patient placed in dorsal-lithotomy [...] activity seen, results documented. Edilma Mendiola MD [facility] Allergies As of Date: 09/06/2023 Noted [...] Encounter Status:Closed by Jc MENDIOLA on 09/06/23 [facility] Consultation Noteon 08-10-20 Consultation Note [id number]#1 .00TIFF [facility] Rebecca 07-24-2023 JORGE Telephone (RADTSA) JOSE CAN ([id number]) 1940 M Date Time Provider Department 07/24/23 [...] Status:Closed by DEBRA QUINN on 07/25/[address] [facility] ECG 12-Leadon 07-24-2023 ECG 12-Lead [id number]#1 .00TIFF Normal [facility] Formson 07-24-2023 Forms [id number]#1 .00TIFF Normal [facility] ECG 12-Leadon 07-20-2023 ECG 12-Lead [id number]#1 .00TIFF Normal [facility] Lab Reportson 07-20-2023 Lab Reports [id number]#1. 00TIFF Normal [facility] Lab Reports [id number] 0 [id number] #1.00TIFF Normal [facility] Lab Reports [id number]#1. 00TIFF Normal [facility] RAD - MISCon 07-20-2023 RAD - MISC [id number]#1. 00TIFF Normal [facility] CNOVon 07-11-2023 CNOV Office Visit (RADTSA ) JOSE CAN ([id number]) 1940 M Date Time Provider Department 07/11/23 [...] Encounter Status:Closed by Jc MENDIOLA on 07/12/23 [facility] Consent for Procedure/Surger yon 06-27-2023 Consent for Procedure/Surgery [id number]# 1.00CD:127 [facility] Rebecca 06-04-2023 CNPN Telephone ([facility] - [facility]) JOSE CAN ([id number]) 1940 M Date Time Provider Department 06/04/23 [...] Encounter Status:Closed by NICHELLE ELKINS on 06/04/23 [facility] 05-29-2023 L - -------- Specimen: [id number] Received: 05/29/23 Status: RANDI Capellan Num: [id number] Spec Type: Surgical Subm Dr: Juan Jiang MD Tissues: A Colon Biopsy (ASCENDING POLYP) Procedures: HE/2, Gross/Micro L4 -------- Age/ Patient Sex Location Account Attending Physician -------- Jose Can /[facility] [id number] Juan Jiang MD -------- SPEC NUM: [id number] RECD: 05/29/23 STATUS: RANDI BARAJASLinda NUM: [id number] FAIZAN: 05/29/23- [facility] DR: Juan Jiang MD ENTERED: 05/29/[address] [facility] [address]: IRVIN TYPE: Surgical DEPT: S ORDERED: [...] microscopic examination confirms the diagnosis. CPT Codes 83917 -------- -------- Specimen: [id number] Received: 05/29/23 Status: RANDI Marilia Num: [id number] Spec Type: Surgical Subm Dr: Juan Jiang MD Tissues: A Colon Biopsy (ASCENDING POLYP) Procedures: HE/Josselin, Gross/Micro L4 -------- Patient: Jose Can [id number] (Continued) -------- Signed (signature on file) Kashmir Linares MD 05/31/23 [address] [facility] Rebecca 05-02-2023 [facility] Telephone (RADTSA) JOSE CAN ([id number]) 1940 M Date Time Provider Department 05/02/23 Jc MENDIOLA STACYMg During your visit today, we recorded the following information about you: iNchelle Elkins, RN 05/02/2023 2:54 PM Signed Pts [...] colonoscopy was done per Dr Franco at [facility] in 2016. It was normal. [...] as urgent will check on later Dona tSokes 05/03/2023 10:39 AM Signed Called and got [...] Encounter Status:Closed by NICHELLE ELKINS on 05/29/[address] [facility] Consultation Noteon 02-17-20 Consultation Note [id number]#1 .00CD:127 Normal [facility] Patient Educationon 02-06-20 Patient Education Oncology [...] under a microscope. This is called the Duncombe score and the total score can range from 6?10, indicating how likely it is that the cancer will spread (metastasize) to other parts of the body. The higher the score, the greater the likelihood that the cancer will spread. ? Duncombe 6 or lower: This indicates that the cancer cells look similar to normal prostate cells (well differentiated). ? Duncombe 7: This indicates that the cancer cells look somewhat similar to normal prostate cells (moderately differentiated). ? Duncombe 8, 9, or 10: This indicates that [...] external be (more content not included)... Normal [facility] Progress Note-Nurseon 2022 Progress Note-Nurse JOSE CAN :1940 Visit Date:02/05/2023 Ambulatory Visit Instructions Your Diagnosis Prostate cancer Prostate nodule BPH with obstruction/lower urinary tract symptoms Elevated PSA Tests Performed Urnls Dip Stick Auto w/o Microscopy POC 02775 Your Care Team Attending Physician - Abran OCHOA MD Primary Care Physician - MARTIR HERBERT MD This Is Your Medications List Contact prescribing physician if questions or concerns lisinopril (Co Lisinopril) simvastatin [Image Removed: STOP]Stop taking these medications acetaminophen-hydroco done ([place] 325 mg-7.5 mg oral tablet) Procedures Performed [...] EDWARDS, Abran Darling Where: [facility] Normal Prostate nodule\.br\ Medications\.br \ What When Instructions\.b r\ Unchanged lisinopril (Co Lisinopril) Contact prescribing physician if questions or concerns \.br\ Unchanged simvastatin Contact prescribing physician if questions or concerns \.br\ \.br\ What How Much When Why Comments\.br\ Stop Taking acetaminophen-h ydrocodone ([place]myra 325 mg-7.5 mg oral tablet) 1 Tablets By Mouth Once Prostate nodule Take 1 hour prior to procedure \.br\ Test Results\.br\ Urnls Dip Stick Auto w/o Microscopy POC 71658 (02/05/2023)\.b r\ Bilirubin Urine Dipstick - Negative\.br\ Blood Urine Dipstick - Negative\.br\ Glucose Urine Dipstick - Negative\.br\ Ketones Urine Dipstick - Negative\.br\ Leukocytes Urine Dipstick - Negative\.br\ Nitrite Urine Dipstick - Negative\.br\ Protein Urine Dipstick - Negative\.br\ Specific [place] Urine Dipstick - 1.020\.br\ Urine Appearance Urine [...] that the cancer will spread.\.br\ ? \.br\ Duncombe 6 or lower: This indicates that the cancer cells look similar to normal prostate cells (well differentiated) .\.br\ ? \.br\ Duncombe 7: This indicates that the cancer cells look somewhat similar to normal prostate cells (moderately differentiated) .\.br\ ? \.br\ Duncombe 8, 9, or 10: This indicates that [...] testosterone, one of the male hormones, by:\ [facility] Urology Office/Clinic Noteon 02-05-2023 Urology Office/Clinic [...] cons of each therapy today, and this [employer] prostate cancer book was provided. Patient given his age, and Duncombe score is not a surgical candidate for prostatectomy. Patient is very active with work and is leaning toward maybe just doing [employer]. He will need referral to Dr. Mendiola for consultation. Patient is considering waiting until he is done with [employer] in July/August. 2. Prostate nodule (N40.2: Nodular [...] Ochoa. Will refer to Dr. Mendiola for [employer] implant in . Follow-up With When Contact Information LADAN EDWADRS, ISSAC Lozano In 6 months [facility] [address], [place] [address] [phone] Additional Instructions: Will refer to Dr. Mendiola [...] biopsy of (more content not included)... Normal [facility] Comment on above: Result Comment: Elec tronically Signed By: Abran OCHOA MD\.br\Date and Time Signed: 02/05/23 09:38 EDT\.br\Electronically Co-Signed By: Christina Lima.br\Date and Time Co-Signed: 02/05/23 09:36 EDT Creatinine (Bld) [Mass/Vol]O rdered By: Abran Ochoa on 12-19-2022 Creatinine [Mass/Vol] 0.9 mg/dL 0.6-1.3 [facility] Comment on above: ER/ESD physician is notified/shown all ISTAT results.Critical values may be confirmed by laboratory testing ifdeemed necessary by ER attending doctor. PSA, FREE AND TOTAL RATIOon 10-18-2022 % Free PSA 21.9 % Normal [facility] Comment on above: Result Comment: The [...] men. Performed By: #### P SAFREE #### [facility] [address] [place] [address] [address] Deisi Bsuh Prostate specific Ag [Mass/Vol] 3.1 ng/mL Normal 0.0-4.0 [facility] Comment on above: Result Comment: Roch olivia ECLIA methodology. . According to the [place] [employer], Serum PSA should decrease and [...] disease. Performed By: #### P SAFREE #### [facility] [address] [place] [address] [address] Deisi Bush PSA, Free 0.68 ng/mL Normal N/A [facility] Comment on above: Result Comment: Roch e ECLIA methodology. Performed By: #### P SAFREE #### [facility] [address] [place] [address] [address] Deisi Bush CBC AUTO DIFFon 03-04-2022 BASO # 0.0 103/ul Normal 0.0-0.1 [facility] Comment on above: Performed By: #### C BC #### [facility] [address] [place] [address] Dr. Deisi Bush Basophils/100 WBC (Bld) 0.6 % Normal 0.2-2.0 [facility] Comment on above: Performed By: #### C BC #### [facility] [address] [place] [address] Dr. Deisi Bush EO # 0.5 103/ul Normal 0.0-0.7 [facility] Comment on above: Performed By: #### C BC #### [facility] [address] [place] [address] Dr. Deisi Bush Eosinophils/100 WBC (Bld) 10.2 % Critically high 0.9-7.0 [facility] Comment on above: Performed By: #### C BC #### [facility] [address] [place] [address] Dr. Deisi Bush Erythrocyte distribution width (RBC) [Ratio] 13.4 % Normal 11.0-15.0 [facility] Comment on above: Performed By: #### C BC #### [facility] [address] [place] [address] Dr. Deisi Bush Hematocrit (Bld) [Volume fraction] 42.3 % Normal 42.0-54.0 [facility] Comment on above: Performed By: #### C BC #### [facility] [address] [place] [address] Dr. Deisi Bush Hemoglobin (Bld) [Mass/Vol] 14.1 g/dL Normal 14.0-18.0 [facility] Comment on above: Performed By: #### C BC #### [facility] [address] [place] [address] Dr. Deisi Bush IG # 0.01 10e3/ul Normal 0.00-0.03 [facility] Comment on above: Performed By: #### C BC #### [facility] [address] [place] [address] Dr. Deisi Bush IG % 0.2 % Normal 0.0-0.5 [facility] Comment on above: Performed By: #### C BC #### [facility] [address] [place] [address] Dr. Deisi Bush LYMPH # 2.4 103/ul Normal 1.2-3.8 [facility] Comment on above: Performed By: #### C BC #### [facility] [address] [place] [address] Dr. Deisi Bush Lymphocytes/100 WBC (Bld) 46.5 % Normal 20.5-60.0 [facility] Comment on above: Performed By: #### C BC #### [facility] [address] [place] [address] Dr. Deisi Bush MANUAL DIFF REQ NO Normal [facility] Comment on above: Performed By: #### C BC #### [facility] [address] [place] [address] Dr. Deisi Bush MCH (RBC) [Entitic mass] 30.5 pg Normal 25.9-34.0 [facility] Comment on above: Performed By: #### C BC #### [facility] [address] [place] [address] Dr. Deisi Bush MCHC (RBC) [Mass/Vol] 33.3 g/dL Normal 29.9-35.2 [facility] Comment on above: Performed By: #### C BC #### [facility] [address] [place] [address] Dr. Deisi Bush MCV (RBC) [Entitic vol] 91.4 fL Normal 80.0-94.0 [facility] Comment on above: Performed By: #### C BC #### [facility] [address] [place] [address] Dr. Deisi Bush MONO # 0.6 103/ul Normal 0.3-0.8 [facility] Comment on above: Performed By: #### C BC #### [facility] [address] [place] [address] Dr. Deisi Bush Monocytes/100 WBC (Bld) 10.6 % Normal 1.7-12.0 [facility] Comment on above: Performed By: #### C BC #### [facility] [address] [place] [address] [address] Deisi Bush NEUT # 1.7 103/ul Normal 1.4-6.5 [facility] Comment on above: Performed By: #### C BC #### [facility] [address] [place] [address] Dr. Deisi Bush Neutrophils/100 WBC (Bld) 31.9 % Critically low 43.0-75.0 [facility] Comment on above: Performed By: #### C BC #### [facility] [address] [place] [address] Dr. Deisi Bush Platelet mean volume (Bld) [Entitic vol] 9.2 fL Critically low 9.5-13.5 [facility] Comment on above: Performed By: #### C BC #### [facility] [address] [place] [address] Dr. Deisi Bush PLT 219 103/ul Normal 150-450 [facility] Comment on above: Performed By: #### C BC #### [facility] [address] [place] [address] Dr. Deisi Bush RBC 4.63 106/ul Critically low 4.70-6.10 [facility] Comment on above: Performed By: #### C BC #### [facility] [address] [place] [address] Dr. Deisi Bush WBC 5.2 103/ul Normal 4.0-11.0 [facility] Comment on above: Performed By: #### C BC #### [facility] [address] [place] [address] Dr. Deisi Bush LIPID PROFILEon 03-04-2022 CHOL-HDL RATIO NORM SEE BELOW Normal [facility] Comment on above: Result Comment: 3.3 - 4.4 LOW RISK 4.4 - 7.1 AVERAGE RISK 7.1 - 11.0 MODERATE RISK >11.0 HIGH RISK Performed By: #### T SH, LIPID, CMP #### [facility] [address] [place] [address] Dr. Deisi Bush Cholesterol [Mass/Vol] 125 mg/dL Normal <=200 [facility] Comment on above: Performed By: #### T SH, LIPID, CMP #### [facility] [address] [address] [address] Deisi Bush Cholesterol in HDL [Mass/Vol] 37 mg/dL Critically low 40-60 [facility] Comment on above: Performed By: #### T SH, LIPID, CMP #### [facility] [address] [address] [address] Deisi Bush Cholesterol in LDL [Mass/Vol] 75.6 mg/dL Normal [facility] Comment on above: Performed By: #### T SH, LIPID, CMP #### [facility] [address] [address] [address] Deisi Bush Cholesterol.total/Chol esterol in HDL [Mass ratio] 3.4 {ratio} Normal [facility] Comment on above: Performed By: #### T SH, LIPID, CMP #### [facility] [address] [address] [address] Deisi Bush HDL NORMAL > or = 60 mg/dl - LO W CARDIOVASCULAR RISK <40 mg/dl - HIGH CARDIOVASCULAR RISK Normal [facility] Comment on above: Performed By: #### T SH, LIPID, CMP #### [facility] [address] [address] [address] Deisi Bush LDL CALC NORMAL SEE BELOW Normal [facility] Comment on above: Result Comment: <100 mg/dl OPTIMAL 100 - 129 mg/dl NEAR OR ABOVE OPTIMAL 130 - 159 mg/dl BORDERLINE HIGH 160 - 189 mg/dl HIGH >190 mg/dl VERY HIGH Performed By: #### T SH, LIPID, CMP #### [facility] [address] [address] [address] Deisi Bush Triglyceride [Mass/Vol] 62 mg/dL Normal <=150 [facility] Comment on above: Performed By: #### T SH, LIPID, CMP #### [facility] [address] [address] [address] Deisi Bush VLDL CALC 12.4 mg/dL Normal [facility] Comment on above: Performed By: #### T SH, LIPID, CMP #### [facility] [address] [place] [address] Dr. Deisi Bush PROF 14(COMP METB)on 022 Albumin [Mass/Vol] 3.4 g/dL Normal 3.4-5.0 [facility] Comment on above: Performed By: #### T SH, LIPID, CMP #### [facility] [address] [place] [address] Dr. Deisi Bush Albumin/Globulin [Mass ratio] 0.9 {ratio} Normal [facility] Comment on above: Performed By: #### T SH, LIPID, CMP #### [facility] [address] [place] [address] Dr. Deisi Bush ALP [Catalytic activity/Vol] 73 U/L Normal 46-116 [facility] Comment on above: Performed By: #### T SH, LIPID, CMP #### [facility] [address] [place] [address] Dr. Deisi Bush ALT [Catalytic activity/Vol] 27 U/L Normal 16-63 [facility] Comment on above: Performed By: #### T SH, LIPID, CMP #### [facility] [address] [place] [address] Dr. Deisi Bush Anion gap [Moles/Vol] 11.6 mmol/L Normal [facility] Comment on above: Performed By: #### T SH, LIPID, CMP #### [facility] [address] [place] [address] Dr. Deisi Bush AST [Catalytic activity/Vol] 22 U/L Normal 15-37 [facility] Comment on above: Performed By: #### T SH, LIPID, CMP #### [facility] [address] [place] [address] Dr. Deisi Bush Bilirubin [Mass/Vol] 1.1 mg/dL Critically high 0.2-1.0 [facility] Comment on above: Performed By: #### T SH, LIPID, CMP #### [facility] [address] [place] [address] Dr. Deisi Bush Calcium [Mass/Vol] 8.7 mg/dL Normal 8.5-10.1 [facility] Comment on above: Performed By: #### T SH, LIPID, CMP #### [facility] [address] [place] [address] Dr. Deisi Bush Chloride [Moles/Vol] 105 mmol/L Normal 98-107 [facility] Comment on above: Performed By: #### T SH, LIPID, CMP #### [facility] [address] [place] [address] Dr. Deisi Bush CO2 [Moles/Vol] 27.6 mmol/L Normal 21.0-32.0 [facility] Comment on above: Performed By: #### T SERGIO, LIPID, CMP #### [facility] [address] [place] [address] Dr. Deisi Bush Creatinine [Mass/Vol] 0.90 mg/dL Normal 0.70-1.30 [facility] Comment on above: Performed By: #### T SH, LIPID, CMP #### [facility] [address] [place] [address] Dr. Deisi Bush EGFR-AF OMANI >60 Normal >=60 [facility] Comment on above: Performed By: #### T SH, LIPID, CMP #### [facility] [address] [place] [address] Dr. Deisi Bush EGFR-NON AF OMANI >60 Normal >=60 [facility] Comment on above: Performed By: #### T SH, LIPID, CMP #### [facility] [address] [place] [address] Dr. Deisi Bush Globulin (S) [Mass/Vol] 3.6 g/dL Normal [facility] Comment on above: Performed By: #### T SH, LIPID, CMP #### [facility] [address] [place] [address] Dr. Deisi Bush Glucose [Mass/Vol] 96 mg/dL Normal 74-106 [facility] Comment on above: Performed By: #### T SH, LIPID, CMP #### [facility] [address] [place] [address] Dr. Deisi Bush Potassium [Moles/Vol] 4.2 mmol/L Normal 3.5-5.1 [facility] Comment on above: Performed By: #### T SERGIO LIPID, CMP #### [facility] [address] [place] [address] Dr. Deisi Bush Protein [Mass/Vol] 7.0 g/dL Normal 6.4-8.2 [facility] Comment on above: Performed By: #### T SERGIO, LIPID, CMP #### [facility] [address] [place] [address] Dr. Deisi Bush Sodium [Moles/Vol] 140 mmol/L Normal 136-145 [facility] Comment on above: Performed By: #### T SERGIO LIPID, CMP #### [facility] [address] [place] [address] Dr. Deisi Bush Urea nitrogen [Mass/Vol] 16.0 mg/dL Normal 7.0-18.0 [facility] Comment on above: Performed By: #### T SERGIO LIPID, CMP #### [facility] [address] [place] [address] Dr. Deisi Bush Urea nitrogen/Creatinine [Mass ratio] 17.8 mg/mg Normal [facility] Comment on above: Performed By: #### T SERGIO LIPID, CMP #### [facility] [address] [place] [address] Dr. Deisi Bush TSHon 03-04-2022 TSH 1.259 uIU/mL Normal 0.358-3.740 [facility] Comment on above: Performed By: #### T SERGIO, LIPID, CMP #### [facility] [address] [place] [address] Dr. Deisi Bush TSH RANGE SEE BELOW Normal [facility] Comment on above: Result Comment: <0.3 4 UIU/ml HYPERTHYROID 0.34-5.60 UIU/ml EUTHYROID >5.60 UIU/ml HYPOTHYROID Performed By: #### T SERGIO LIPID, CMP #### [facility] [address] [place] [address] Dr. Deisi Bush Lipid Panelon 12-29-2021 Cholesterol [Mass/Vol] 181 mg/dL Normal 125-200 [facility] on above: Result Comment: Low risk < 200mg/dL Borderline risk 201-239 mg/dl High risk > or equal to 240 Performed By: #### L IPD #### [facility] [address] [place], [place] [id number] Cholesterol in HDL [Mass/Vol] 41 mg/dL Normal >40 [facility] Comment on above: Result Comment: High Cardiovascular Risk HDL <40 mg/dL Low Cardiovascular Risk HDL > or equal to 60 mg/dl Performed By: #### L IPD #### [facility] [address] [place], [place] [id number] Cholesterol in LDL [Mass/Vol] 126 mg/dL Normal [facility] Comment on above: Result Comment: LDL ATP III CLASSIFICATION LDL less than 100 mg/dl Optimal LDL 100-129 mg/dl Near or above optimal LDL 130-159 Borderline high LDL 160-189 High LDL greater than 189 mg/dl Very High Performed By: #### L IPD #### [facility] [address] [place], [place] [id number] Cholesterol in VLDL [Mass/Vol] 14 mg/dL Normal [facility] Comment on above: Performed By: #### L IPD #### [facility] [address] [place], [place] [id number] Cholesterol.total/Chol esterol in HDL [Mass ratio] 4 {ratio} Normal [facility] Comment on above: Performed By: #### L IPD #### [facility] [address] [place], [place] [id number] Triglyceride [Mass/Vol] 72 mg/dL Normal 30-150 [facility] Comment on above: Result Comment: TRIG ATPIII CLASSIFICATIONS TRIG less than 150 mg/dl Normal TRIG 150-199 mg/dl Borderline High TRIG 200-500 mg/dl High TRIG greather than 500 mg/dl Very High Performed By: #### L IPD #### [facility] [address] [place], [place] [id number] PSA SCREEN (MEDICARE)on 08-25 TPSA 3.110 ng/mL Normal <4.000 [facility] Comment on above: Result Comment: PSA Test Method: ECLIA/Saw e 601 Performed By: #### P #### [facility] [address] [place], [place] [id number] Vital Signs Date Time Vital Sign Value Performing Clinician Facility 04-10-2024 09:29-0400 Body mass index (BMI) [Ratio] 27.77 kg/m2 KENDRICK Mendiola MD Work Phone: [facility] 04-10-2024 09:29-0400 Body temperature 97.39 [degF] KENDRICK Mendiola MD Work Phone: [facility] 04-10-2024 09:29-0400 Body weight 85.3 kg KENDRICK Mendiola MD Work Phone: [facility] 04-10-2024 09:29-0400 Diastolic blood pressure 78 mm[Hg] KENDRICK Mendiola MD Work Phone: [facility] 04-10-2024 09:29-0400 Heart rate 71 /min KENDRICK Mendiola MD Work Phone: [facility] 04-10-2024 09:29-0400 Respiratory rate 18 /min KENDRICK Mendiola MD Work Phone: [facility] 04-10-2024 09:29-0400 SaO2% (BldA) [Mass fraction] 96 % KENDRICK Mendiola MD Work Phone: [facility] 04-10-2024 09:29-0400 Systolic blood pressure 152 mm[Hg] KENDRICK Mendiola MD Work Phone: [facility] 12-28-2023 08:06-0400 Blood Pressure Location Abran OCHOA [facility] 12-28-2023 08:06-0400 Diastolic blood pressure 87 mm[Hg] Abran OCHOA [facility] 12-28-2023 08:06-0400 Heart rate 51 /min Abran OCHOA [facility] 12-28-2023 08:06-0400 Respiratory rate 16 /min Abran OCHOA [facility] 12-28-2023 08:06-0400 Systolic blood pressure 131 mm[Hg] Abran OCHOA [facility] 12-19-2023 09:30-0400 Diastolic blood pressure 89 mm[Hg] II Martir Herbert Work Phone: [facility] 12-19-2023 09:30-0400 Heart rate 51 /min II Martir Herbert Work Phone: [facility] 12-19-2023 09:30-0400 Respiratory rate 16 /min II Martir Herbert Work Phone: [facility] 12-19-2023 09:30-0400 SaO2% (BldA) [Mass fraction] 97 % II Martir Herbert Work Phone: [facility] 12-19-2023 09:30-0400 Systolic blood pressure 165 mm[Hg] II Martir Herbert Work Phone: [facility] 12-19-2023 07:04-0400 Body height 175.26 cm II Martir Herbert Work Phone: [facility] 12-19-2023 07:04-0400 Body mass index (BMI) [Ratio] 28.8 kg/m2 II Martir Herbert Work Phone: [facility] 12-19-2023 07:04-0400 Body weight 88.45 kg II Martir Herbert Work Phone: [facility] 12-19-2023 06:22-0400 Body temperature 97.6 [degF] II Martir Herbert Work Phone: [facility] 12-18-2023 11:59-0400 Body height 175.26 cm [facility] 12-18-2023 11:59-0400 Body mass index (BMI) [Ratio] 26.6 kg/m2 [facility] 12-18-2023 11:59-0400 Body temperature 97.6 [degF] [facility] 12-18-2023 11:59-0400 Body weight 81.64 kg [facility] 12-18-2023 11:59-0400 Diastolic blood pressure 72 mm[Hg] [facility] 12-18-2023 11:59-0400 Heart rate 62 /min [facility] 12-18-2023 11:59-0400 Respiratory rate 16 /min [facility] 12-18-2023 11:59-0400 SaO2% (BldA) [Mass fraction] 98 % [facility] 12-18-2023 11:59-0400 Systolic blood pressure 120 mm[Hg] [facility] 10-08-2023 09:53-0500 Blood Pressure Location Abran OCHOA [facility] 10-08-2023 09:53-0500 Diastolic blood pressure 74 mm[Hg] Abran OCHOA [facility] 10-08-2023 09:53-0500 Heart rate 72 /min Abran OCHOA [facility] 10-08-2023 09:53-0500 Respiratory rate 16 /min Abran OCHOA [facility] 10-08-2023 09:53-0500 Systolic blood pressure 130 mm[Hg] Abran OCHOA [facility] 05-29-2023 09:10-0400 Diastolic blood pressure 67 mm[Hg] II Martir Herbert Work Phone: [facility] 05-29-2023 09:10-0400 Heart rate 51 /min II Martir Herbert Work Phone: [facility] 05-29-2023 09:10-0400 Respiratory rate 16 /min II Martir Herbert Work Phone: [facility] 05-29-2023 09:10-0400 SaO2% (BldA) [Mass fraction] 96 % II Martir Herbert Work Phone: [facility] 05-29-2023 09:10-0400 Systolic blood pressure 131 mm[Hg] II Martir Herbert Work Phone: [facility] 05-29-2023 07:30-0400 Body height 175.26 cm II Martir Herbert Work Phone: [facility] 05-29-2023 07:30-0400 Body temperature 98 [degF] II Martir Herbert Work Phone: [facility] 05-29-2023 07:30-0400 Body weight 81.64 kg II Martir Herbert Work Phone: [facility] 02-05-2023 08:47-0400 Diastolic blood pressure 80 mm[Hg] Abran OCHOA [facility] 02-05-2023 08:47-0400 Mean blood pressure 103 mm[Hg] Abran OCHOA [facility] 02-05-2023 08:47-0400 Systolic blood pressure 150 mm[Hg] Abran OCHOA [facility] 02-05-2023 08:42-0400 Blood Pressure Location Abran OCHOA [facility] 02-05-2023 08:42-0400 Diastolic blood pressure 80 mm[Hg] Abran OCHOA [facility] 02-05-2023 08:42-0400 Heart rate 53 /min Abran OCHOA [facility] 02-05-2023 08:42-0400 Systolic blood pressure 154 mm[Hg] Abran OCHOA [facility] 12-19-2022 06:51-0400 Body height 177.8 cm II Martir Herbert Work Phone: [facility] 12-19-2022 06:51-0400 Body weight 81.64 kg II Martir Herbert Work Phone: [facility] 12-04-2022 12:26-0400 Blood Pressure Location Abran OCHOA [facility] 12-04-2022 12:26-0400 Diastolic blood pressure 70 mm[Hg] Abran OCHOA [facility] 12-04-2022 12:26-0400 Heart rate 64 /min Abran OCHOA [facility] 12-04-2022 12:26-0400 Systolic blood pressure 149 mm[Hg] Abran OCHOA [facility] Encounters Encounter Date Encounter Type Care Provider Facility Start: 07-04-2024 [facility] Start: 04-10-2024 End: 04-10-2024 Patient encounter procedure Jc Mendiola MD Work Phone: Radiation Oncology Comment on above: Malignant neoplasm o f prostate (HCC) (Primary Dx) Start: 04-10-2024 End: 04-10-2024 ambulatory MARTIR HERBERT II Facility:[facility] Start: 03-26-2024 End: 03-26-2024 ambulatory MARTIR HERBERT Not Available Start: 12-28-2023 End: 12-29-2023 ambulatory Abran OCHOA Facility:[facility] Start: 12-28-2023 End: 12-28-2023 Patient encounter procedure Abran OCHOA [facility] Start: 12-20-2023 End: 12-20-2023 ambulatory MARTIR HERBERT Not Available Start: 12-19-2023 Non-patient / Non-visit II Domenic Herbert Work Phone: [facility] Vascular Surgery Work Phone: Start: 12-19-2023 End: 12-19-2023 ambulatory Armani Robin Facility:[facility] Start: 12-19-2023 End: 12-19-2023 Admission to same day surgery center II Martir Herbert Work Phone: [facility] [place] Start: 12-19-2023 End: 12-19-2023 ambulatory II Martir Herbert Work Phone: [facility] Work Phone: Start: 12-18-2023 End: 12-18-2023 ambulatory [facility] Work Phone: Start: 12-18-2023 End: 12-18-2023 Patient encounter procedure [facility] Vascular Surgery Work Phone: Start: 12-06-2023 End: 12-06-2023 ambulatory MARTIR HERBERT Not Available Start: 11-14-2023 End: 11-14-2023 ambulatory MARTIR HERBERT Not Available Start: 10-11-2023 End: 10-11-2023 ambulatory MARTIR HERBERT II Facility:[facility] Start: 10-08-2023 End: 10-09-2023 ambulatory Abran OCHOA Facility:[facility] Start: 10-08-2023 End: 10-08-2023 Patient encounter procedure Abran OCHOA [facility] Start: 10-03-2023 End: 10-03-2023 ambulatory MARTIR HERBERT II Facility:[facility] Start: 09-21-2023 End: 09-22-2023 ambulatory Abranvalentin OCHOA Facility:[facility] Start: 09-21-2023 End: 09-21-2023 Patient encounter procedure Abran OCHOA [facility] Start: 09-19-2023 End: 09-19-2023 ambulatory MARTIR HERBERT II Facility:[facility] Start: 09-12-2023 End: 09-13-2023 ambulatory Abranvalentin OCHOA Facility:[facility] Start: 09-12-2023 End: 09-12-2023 Patient encounter procedure Abran OCHOA [facility] Start: 09-06-2023 End: 09-07-2023 ambulatory Abran OCHOA Facility:[id number] Start: 09-06-2023 End: 09-06-2023 Patient encounter procedure Jc Mendiola MD Work Phone: Radiation Oncology Comment on above: Malignant neoplasm o f prostate (HCC) (Primary Dx) Start: 08-08-2023 ambulatory Abranvalentin OCHOA Facili ty:[facility] Start: 07-25-2023 Patient encounter procedure [facility] Provider [facility] Start: 07-24-2023 Telephone encounter Jc Mendiola MD Work Phone: Radiation Oncology Comment on above: Appointment Start: 07-11-2023 Patient encounter procedure Jc Mendiola MD Work Phone: [facility] Start: 07-11-2023 Radiation Oncology Note Jc Mendiola MD Work Phone: Radiation Oncology Comment on above: Simulation Note Start: 07-11-2023 End: 07-11-2023 ambulatory MARTIR HERBERT II Facility:[facility] Start: 05-29-2023 End: 05-29-2023 ambulatory Martir Herbert Facility:[facility] Start: 05-29-2023 End: 05-29-2023 Admission to same day surgery center II Martir Herbert Work Phone: [facility] Work Phone: Start: 05-29-2023 End: 05-29-2023 ambulatory II Martir Herbert Work Phone: [facility] Work Phone: Start: 05-23-2023 Patient encounter procedure [facility] Provider [facility] Start: 05-02-2023 Telephone encounter G Chirag Mendiola MD Work Phone: Radiation Oncology Comment on above: Constipation; Rectal Bleeding; Future Appointment Start: 02-21-2023 Patient encounter procedure [facility] Provider [facility] Start: 02-05-2023 End: 02-06-2023 ambulatory Abran OCHOA Facility: [place] Start: 02-05-2023 End: 02-05-2023 Patient encounter procedure Abran OCHOA [facility] Start: 01-16-2023 End: 01-16-2023 Patient encounter procedure Abran OCHOA [facility] Start: 12-19-2022 End: 12-19-2022 ambulatory II Martir Herbert Work Phone: [facility] Work Phone: Start: 12-19-2022 End: 12-19-2022 Patient encounter procedure II Martir Herbert Work Phone: [facility] [place] Work Phone: Start: 12-04-2022 End: 12-04-2022 Patient encounter procedure Abran OCHOA [facility] Start: 10-17-2022 End: 10-18-[address] ABRAN OCHOA Facility: Start: 09-22-2022 End: 09-22-2022 Patient encounter procedure Abran OCHOA [facility] Start: 03-04-2022 End: 03-05-[address] MARTIR HERBERT Facility:[facility] Procedures Date Procedure Procedure Detail Performing Clinician Start: 12-24-2023 PSA screening [facility] Provi jihan Start: 12-19-2023 Biopsy of temporal artery II [...] anterio r temporal artery (body structure) Abran LADAN Plan of Treatment Date Care Activity Detail Author Start: 09-19-2031 Urine microalbumin profile DTaP,Tdap,Td Vaccine (2 - Td or Tdap) [facility] Start: 04-09-2025 End: 04-09-2025 Patient encounter procedure 04/09/2025 9:00 AM EDT Office Visit Radiation Oncology [address] [place] [address] Jc Mendiola MD [address] [place] [address] Followup Radiation Oncology Comment on above: Followup Start: 05-25-2024 Influenza vaccination Influenza Vacc ine (#1) [facility] Start: 12-19-2023 [facility] Start: 12-19-2023 [facility] Start: 11-29-2023 Covid-19 Vaccine ( season) Covid-19 Vaccine ( season) [facility] Start: 09-24-2023 Advance Directive Discussion Advance Directive Discussion [facility] Start: 09-24-2023 Behavioral Health Screening Behavioral Health Screening [facility] Start: 05-29-2023 [facility] Start: 05-25-2023 Covid-19 Vaccine ( season) Covid-19 Vaccine ( season) [facility] Start: 05-25-2023 Influenza vaccination C [facility] Start: 12-11-2022 COVID-19 VACCINE (5 - Pfizer series) COVID-19 VACCINE (5 - Pfizer series) [facility] Start: 09-24-2022 ADVANCE DIRECTIVE DISCUSSION ADVANCE DIRECTIVE DISCUSSION [facility] Start: 09-24-2022 DEPRESSION ASSESSMENT DEPRESSION ASS ESSMENT [facility] Start: 2006 PNEUMOCOCCAL: 65+ (1 - PCV) PNEUMOCOCCAL: 65+ (1 - PCV) [facility] Start: 2001 RSV Vaccine (1 - 1-d ose 60+ series) RSV Vaccine (1 - 1-dose 60+ series) [facility] Start: 11-24-1991 SHINGRIX VACCINE (1 of 2) SHINGRIX VACCINE (1 of 2) [facility] Start: 1986 [facility] Start: 1986 Diabetes Screening Diabetes Screenin g [facility] Start: 1960 Urine microalbumin profile DTAP,TDAP,TD (1 - Tdap) [facility] Patient referral [facility] Work Phone: [facility] Immunizations Immunization Date Immunization Notes Care Provider Fa cility 07-31-2023 COVID-19 (PFIZER) 12Y and older II Martir Herbert Work Phone: [facility] 07-31-2023 influenza virus vaccine, unspecified formulation Abran OCHOA [facility] 08-13-2022 influenza virus vaccine, unspecified formulation Abran OCHOA [facility] 08-13-2022 SARS-CoV-2 (COVID-19 ) [id number].[id number] Abran OCHOA [facility] 12-18-2021 zoster vaccine recombinant Abran OCHOA [facility] 09-21-2021 zoster vaccine recombinant Abran OCHOA [facility] 09-19-2021 tetanus toxoid, redu lester diphtheria toxoid, and acellular pertussis vaccine, adsorbed Abran OCHOA [facility] 08-25-2021 influenza virus vaccine, unspecified formulation Abran OCHOA [facility] 06-25-2021 influenza virus vaccine, unspecified formulation Abran OCHOA [facility] 06-25-2021 SARS-CoV-2 (COVID-19 ) mRNA BNT-162b2 vax Abran OCHOA [facility] Comment on above: Result Comment: 2022: [id number] 11-14-2020 SARS-CoV-2 (COVID-19 ) mRNA BNT-162b2 vax Abran OCHOA [facility] Comment on above: Result Comment: 2022: [id number] 10-24-2020 SARS-CoV-2 (COVID-19 ) mRNA BNT-162b2 vax Abran OCHOA [facility] Comment on above: Result Comment: 2022: [id number] 06-28-2020 influenza virus vaccine, unspecified formulation Abran OCHOA [facility] 07-02-2019 influenza virus vaccine, unspecified formulation Abran OCHOA [facility] 07-02-2019 pneumococcal conjuga te vaccine, 13 valent Abran OCHOA [facility] 06-29-2018 influenza virus vaccine, unspecified formulation Abran OCHOA [facility] 06-21-2017 influenza virus vaccine, unspecified formulation Abran OCHOA [facility] 08-18-2015 influenza virus vaccine, unspecified formulation Abran OCHOA [facility] 06-23-2014 influenza virus vaccine, unspecified formulation Abran OCHOA [facility] 07-01-2013 influenza virus vaccine, unspecified formulation Abran OCHOA [facility] 07-01-2013 zoster vaccine, live Abran OCHOA [facility] Payers Date Payer Category Payer Self-pay 2022 Private Health Insurance [facility] [employer] [id number] 2022-Present [phone] [address] [place] [address] Indemnity [id number] 2006 Medicare [id number] 1959 Medicare [id number] 1959 Private Health Insurance [id number] 1941 Unknown [id number] 2.16.840.1.587040.3.579. 2.593 1941 Unknown [id number] 2.16.840.1.456162.3.579. 2.593 1941 Unknown [id number] 2.16.840.1.455232.3.579. 2.727 1941 Unknown [id number] 2.16840.1.793455.3.579. 2.727 1941 Unknown [id number] 2.16.840.1.849894.3.579. 2.727 1941 Unknown [id number] 2.16.840.1.973755.3.579. 2.727 1941 Unknown [id number] 2.16.840.1.439832.3.579. 2.727 1941 Unknown [id number] 2.16.840.1.491800.3.579. 2.727 1941 Unknown [id number] 2.16.840.1.011329.3.579. 2.727 1941 Unknown [id number] 2.16.840.1.852359.3.579. 2.727 1941 Unknown [id number] 2.16.840.1.402709.3.579. 2.1259 1941 Unknown [id number] 2.16.840.1.542601.3.579. 2.1259 1941 Unknown [id number] 2.16.840.1.276085.3.579. 2.1259 1941 Unknown [id number] 2.16.840.1.325454.3.579. 2.1259 Unknown Insurance No Card [id number] Unknown [id number] 2.16.840.1.998237.3.579. 2.531 Unknown [id number] 2.16.840.1.509019.3.579. 2.531 Social History Date Type Detail Facility Start: 09-01-2020 End: 02-16-2023 Tobacco smoking status Never smoked tobacco (finding) [facility] Tobacco smoking status Never [facility] Start: 02-16-2023 End: 09-06-2023 Sex Assigned At Male [facility] Start: 1940 Sex Assigned At Male [facility] Start: 02-16-2023 Tobacco use and exposure Smokeless tobacco non-user [facility] Start: 02-16-2023 End: 10-11-2023 Alcohol intake Ex-drinker (finding) [facility] Start: 1940 Sex Assigned At Not on file [facility] Start: 02-16-2023 End: 09-06-2023 History of Social function [facility] Goals Date Patient Goal Desired Activity /State Functional Status Date Assessment Result Facility 12-28-2023 Functional Status N/A [facility] [place] 10-08-2023 Functional Status N/A [facility] 02-05-2023 Functional Status N/A [facility] 12-04-2022 Functional Status N/A [facility] Clinical Notes 02-23-2022 to 04-10-2024 Jc Mendiola MD - 04/10/2024 9:45 AM Nichelle Hart RN - 04/10/2024 9:32 AM Nichelle Hart RN - 04/10/2024 9:32 AM Jc Quezada MD - 09/06/2023 3:06 PM EST Note Date & Type Note Facility 04-10-2024 History of Present illness Narrative Radiation Oncology - Follow Up Note PATIENT NAME: Jose Can PATIENT DIAGNOSIS: Prostate adenocarcinoma, initial PSA 3.1, biopsy Duncombe score 3 + 4 = 7 (grade group 2), clinical stage T2a, N0, M0, stage IIB [T1-T2, N0, M0, PSA <20, GG 2] (AJCC 8th ed.), s/p TRUS Random and MR Targeted biopsy. RADIATION SUMMARY: Prostate brachytherapy 09/06/2023: I-125, 145 Coffey, 61 sources, 23.67 millicurie. 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 He has further follow-up with dermatology. Denies any change in bladder or bowel function. PSA HISTORY: PSA. (no units) Date Value 12/24/2023 0.59 10/08/2023 1.55 ALLERGIES Allergen Reactions Penicillins Rash Sulfa (Sulfonamide * Rash predniSONE (DELTASONE) 20 mg tablet Take 60 mg by mouth once daily. oxybutynin XL (DITROPAN XL) 5 mg 24 hr tablet Take 5 mg by mouth once daily. simvastatin (ZOCOR) 10 mg tablet Take 10 mg by mouth daily at bedtime. lisinopril (ZESTRIL) 10 mg tablet omega-3 acid [...] Yes Medications to aid urination: y AUA: 4 Bowel movement frequency: 1/day Bowel movement quality: normal Androgen deprivation: Never. PHYSICAL EXAM: BP 152/78 Pulse 71 Temp 36.3 C (97.4 F) Resp 18 Wt 85.3 kg (188 lb 0.8 oz) SpO2 96% BMI 27.77 kg/m KPS: 100 General Appearance: Alert and oriented. No acute distress. Rectal exam is deferred. ASSESSMENT/PLAN: Prostate adenocarcinoma, initial PSA 3.1, biopsy Duncombe score 3 + 4 = 7 (grade group 2), clinical stage T2a, N0, M0, stage IIB [T1-T2, N0, M0, PSA <20, GG 2] (AJCC 8th ed.), s/p TRUS Random and MR Targeted biopsy. Status post prostate brachytherapy implant 09/06/2023. Doing well with appropriate PSA response. He has continued urologic follow-up including PSA surveillance with Dr. Ochoa. No significant post radiation related issues. I will plan to see patient back in 1 year. Signed by: Jc Mendiola MD cc: Martir Herbert II, MD [address] [place] [address] Dr. Ochoa documented in this encounter [facility] 04-10-2024 Note HNO ID: [id number] Author: Jc MENDIOLA MD Service: ? Author Type: Physician Type: Progress Notes Filed: 04/14/2024 10:59 Note Text: Radiation Oncology - Follow Up Note PATIENT NAME: Jose Can PATIENT DIAGNOSIS: Prostate adenocarcinoma, initial PSA 3.1, biopsy Duncombe score 3 + 4 = 7 (grade group 2), clinical stage T2a, N0, M0, stage IIB [T1-T2, N0, M0, PSA <20, GG 2] (AJCC 8th ed.), s/p TRUS Random and MR Targeted biopsy. RADIATION SUMMARY: Prostate brachytherapy 09/06/2023: I-125, 145 Coffey, 61 sources, 23.67 millicurie. 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 He has further follow-up with dermatology. Denies any change in bladder or bowel function. PSA HISTORY: PSA. (no units) Date Value 12/24/2023 0.59 10/08/2023 1.55 ALLERGIES Allergen Reactions Penicillins Rash Sulfa (Sulfonamide * Rash predniSONE (DELTASONE) 20 mg tablet Take 60 mg by mouth once daily. oxybutynin XL (DITROPAN XL) 5 mg 24 hr tablet Take 5 mg by mouth once daily. simvastatin (ZOCOR) 10 mg tablet Take 10 mg by mouth daily at bedtime. lisinopril (ZESTRIL) 10 mg tablet omega-3 acid [...] Yes Medications to aid urination: y AUA: 4 Bowel movement frequency: 1/day Bowel movement quality: normal Androgen deprivation: Never. PHYSICAL EXAM: BP 152/78 Pulse 71 Temp 36.3 ?C (97.4 ?F) Resp 18 Wt 85.3 kg (188 lb 0.8 oz) SpO2 96% BMI 27.77 kg/m? KPS: 100 General Appearance: Alert and oriented. No acute distress. Rectal exam is deferred. 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 Status post prostate brachytherapy implant 09/06/2023. Doing well with appropriate PSA response. He has continued urologic follow-up including PSA surveillance with Dr. Ochoa. No significant post radiation related issues. I will plan to see patient back in 1 year. Signed by: Jc Mendiola MD cc: Martir Herbert II, MD [address] [facility] [address] [place] [address] [facility] 04-10-2024 Nurse Note LAY 4 Nichelle Elkins RN [facility] 04-10-2024 Nurse Note LAY 4 Nichelle Elkins RN documented in this encounter [facility] 12-28-2023 Hospital Discharge instructions Patient Education 12/28/2023 [...] urethra. Follow these instructions at home: Take grps-ukm-ywfrqnv and prescription medicines only as told by [...] provider. Document Revised: 03/29/2022 Document Reviewed: 03/29/2022 [employer] Patient Education 2022 Premise. Follow Up Care 12/04/2022 12:55:53 With:LADAN EDWARDS, Abran Darling, URL Address: [address] [place], [place] [id number]- When: Unknown [facility] 10-11-2023 Note HNO ID: [id number] Author: Jc MENDIOLA MD Service: ? Author [...] ASSESSMENT/PLAN: Prostate adenocarcinoma, initial PSA 3.1, biopsy Duncombe score 3 + 4 = 7 (grade [...] Mendiola MD cc: Martir Herbert II, MD [address] [place] [address] [facility] 10-08-2023 Hospital Discharge instructions Patient Education 10/08/2023 [...] treat constipation, you may need to: Take odgu-gwe-mdqtehb or prescription medicines. Eat foods that are high in fiber, such as beans, whole grains, and fresh fruits and vegetables. Limit foods that are high in fat and processed sugars, such as fried or sweet foods. General instructions Take ztnc-vju-fsfngom and prescription medicines only as told by [...] provider. Document Revised: 12/07/2021 Document Reviewed: 12/07/2021 [employer] Patient Education 2022 Premise. Follow Up Care 06/26/2023 12:00:57 With:LADAN EDWARDS, Abran Darling, ISSAC Address: [facility] [address] , [place] [phone] When: Unknown Comments:3 mos w/ PSA [facility] [place] 10-03-2023 Note HNO ID: [id number] Author: Jc MENDIOLA MD Service: ? Author Type: Physician Type: Progress Notes Filed: 10/12/2023 11:35 Note Text: Patient: Jose Can Date:10/03/2023 [facility] Department of Radiation Oncology [facility] RADIATION ONCOLOGY POST SEED IMPLANT SIMULATION NOTE [...] Electronically Signed CHIRAG MENDIOLA M.D. 1:[address] [facility] 09-19-2023 Note HNO ID: [id number] Author: Jc Mendiola MD Service: ? Author Type: Physician Type: Progress Notes Filed: 09/19/2023 4:02 PM Note Text: Radiation Oncology - Follow Up Note PATIENT NAME: Jose Can PATIENT DIAGNOSIS: Prostate adenocarcinoma, initial PSA 3.1, biopsy Duncombe score 3 + 4 = 7 (grade [...] Mendiola MD cc: Martir Herbert II, MD [address] [place] [address] No referring provider defined for this encounter. [facility] 09-06-2023 Note HNO ID: [id number] Author: Jc Mendiola MD Service: ? Author Type: Physician Type: Progress Notes Filed: 09/06/2023 3:18 PM Note Text: Date: 09/06/23 Facility: [facility] Procedure: prostate transperineal brachytherapy implant [...] seen, results documented. Edilma Mendiola MD [facility] 09-06-2023 History of Present illness Narrative Date: 09/06/23 Facility: [facility] Procedure: prostate transperineal brachytherapy implant [...] activity seen, results documented. Edilma Mendiola MD [facility] documented in this encounter [facility] 08-25-2023 Note HNO ID: [id number] Author: Jc Mendiola MD Service: ? Author Type: Physician Type: Progress Notes Filed: 09/06/2023 12:36 AM Note Text: JOSE CAN [id number] 08/25/2023 [facility] Department of Radiation Oncology [facility] RADIATION ONCOLOGY BRACHYTHERAPY TREATMENT PLANNING NOTE For [...] Electronically Signed Chirag Mendiola M.D. / NATY :[address] [facility] 07-25-2023 Miscellaneous Notes Enriqueta, pt's dtr, returned [...] we will him an updated schedule. Debra Qunin RN documented in this encounter [facility] 07-12-2023 Note HNO ID: [id number] Author: Jc Mendiola MD Service: ? Author [...] Visit completed when applicable. Jc Mendiola MD [facility] 07-11-2023 History of Present illness Narrative JOSE CAN [id number] 07/11/2023 [facility] Department of Radiation Oncology [facility] RADIATION ONCOLOGY SIMULATION NOTE DATE OF SIMULATION: 07/11/2023 MACHINE: [facility] 500 Diagnosis: 185 (Prostate Gland) AREA:Prostate PATIENT POSITION: Supine CONTRAST: None PROTOCOL: None CONCURRENT THERAPY: None FIXATION DEVICE: UTS Stabilization device by Nucletron. PROCEDURE: Patient was simulated in exaggerated dorsal lithotomy position. Serial images of the prostate were acquired using TRUS and reconstructed in 3D space. These images were imported into [employer] Prostate planning system where a plan was generated. ASSESSMENT/PLAN: Patient tolerated simulation procedure well. Electronically Signed Chirag Mendiola M.D. / NATY :19 PM documented in this encounter [facility] 07-11-2023 Note HNO ID: [id number] Author: Jc Mendiola MD Service: ? Author Type: Physician Type: Progress Notes Filed: 07/12/2023 12:35 AM Note Text: JOSE CAN [id number] 07/11/2023 [facility] Department of Radiation Oncology [facility] RADIATION ONCOLOGY SIMULATION NOTE DATE OF SIMULATION: [...] 3D space. These images were imported into [employer] Prostate planning system where a plan was generated. ASSESSMENT/PLAN: Patient tolerated simulation procedure well. Electronically Signed Chirag Mendiola M.D. / NATY :[address] [facility] 05-29-2023 Procedure note [facility] 05-03-2023 Miscellaneous Notes Patients daughter called [...] colonoscopy was done per Dr Franco at [facility] in 2016. It was normal. Dr Mendiola-- please advise. Nichelle Elkins RN documented in this encounter [facility] 02-05-2023 Hospital Discharge instructions Patient Education 02/05/2023 [...] stress of having cancer. General instructions Take nbhv-ryw-gehcvou and prescription medicines only as told by your health care provider. If you have to go to the hospital, notify your cancer specialist (oncologist). Keep all follow-up visits. This is important. Where to find more information [place] [employer]: www.cancer.org [place] [employer] of Clinical Oncology: www.cancer.net National Cancer [place]: www.cancer.gov Contact a health care provider if: [...] provider. Document Revised: 12/07/2021 Document Reviewed: 12/07/2021 [employer] Patient Education 2022 Premise. Follow Up Care 01/04/2023 12:26:51 With:LADAN EDWARDS, Abran Darling, URL Address: [facility] [address], [place] [phone] When:Within 6 Month(s) Comments:Will refer to Dr. Mendiola [facility] 01-16-2023 Hospital Discharge instructions Patient Education [...] for your post-operative appointment in 1-2 weeks [phone] or [phone] Follow Up Care 01/04/2023 11:45:40 With:Abran OCHOA Address: [facility] [address] [place] [address]- Business (1) When: Unknown Comments:Keep scheduled appointment [...] urethra. Follow these instructions at home: Take igfv-ixl-xqznidg and prescription medicines only as told by [...] 09/10/2006 Document Revised: 08/05/2019 Document Reviewed: 10/15/2017 [employer] Patient Education 2020 [employer] Follow Up Care 09/22/2022 08:10:59 With:Abran OCHOA MD, URL Address: [facility] [address], [place] [address]- When: Unknown [facility] 02-23-2022 Hospital Discharge instructions Follow Up Care 02/23/2022 13:31:33 With:Abran OCHOA MD, URL Address: [address] [place] [address] [place] [address]- When: Unknown [facility] Evaluation + Plan note Future Appointments Appointment Date:12/04/2022 12:15:00 PM Scheduled Provider:Abran OCHOA MD Location:[facility] Appointment Type:URO Office Visit [facility] Evaluation + Plan note Future Appointments Appointment Date:12/07/2023 08:00:00 AM Scheduled Provider:Abran OCHOA MD Location:[facility] Appointment Type:URO Office Visit [facility] Evaluation + Plan note Future Appointments Appointment Date:02/05/2023 08:30:00 AM Scheduled Provider:[facility]bran [facility]A [facility] Office Visit Appointment Date:12/07/2023 08:00:00 AM Scheduled Provider:Abran OCHOA MD [facility] Type:[facility]O Office Visit Diagnostic Tests PendingProstate Histology ([facility]) 01/16/23 [facility] Evaluation + Plan note Future Appointments Appointment Date:12/07/2023 08:00:00 AM Scheduled Provider:Abran OCHOA MD [facility] Type:URO Office Visit Diagnostic Tests PendingPSA Total 02/05/23 [facility] Evaluation + Plan note Future Appointments Appointment Date:10/08/2023 09:30:00 AM Scheduled Provider:Abran OCHOA MD Location:[facility] Appointment Type:URO Office Visit Appointment Date:12/07/2023 08:00:00 AM Scheduled Provider:Abran OCHOA MD Location:[facility] Appointment Type:URO Office Visit [facility] Evaluation + Plan note Future Appointments Appointment Date:12/28/2023 08:00:00 AM Scheduled Provider:Abran OCHOA MD Location:[facility] Appointment Type:URO Office Visit Diagnostic Tests PendingPSA Total 10/08/23 [facility] Evaluation + Plan note Future Appointments Appointment Date:07/04/2024 09:15:00 AM Scheduled Provider:Abran OCHOA MD Location:[facility] Appointment Type:URO Office Visit Diagnostic Tests PendingPSA Total 04/24/24 [facility] Evaluation note No assessment inform ation available [facility] Work Phone: Evaluation note Diagnosis Rectal bleeding- Primary Hemorrhage of rectum and anus Constipation, unspecified constipation type Prostate cancer (HCC) Malignant neoplasm of prostate [facility] Malignant neoplasm of prostate (HCC)- Primary Malignant neoplasm of prostate [facility] Diagnosis Onset Date Resolution Status Temporal arteritis acute [facility] Work Phone: Evaluation note* Diagnosis Malignant neoplasm of prostate (HCC)- Primary Malignant neoplasm of prostate [facility] Author Juan Jiang [facility] May 29, 2023 8:21am Note Date/Time May 29, 2023 8:21am [facility] ENTER [address] [place] [address] Gastroenterology H&P Signed Patient: Jose Can MR#: [id number] : 1940 Acct:[id number] Age/Sex: 82 / M Adm Date: 3 Loc: Room: Type: [facility] Attending Dr: Juan Jiang MD [...] <Electronically signed by Juan Jiang MD> 05/29/23820 [facility] Work Phone: Hospital course Narrative No data available for this section [facility] Hospital Discharge instructions Additional Instructions DISCHARGE [...] NOT operate machinery such as power tools, [employer] mowers, [employer] blowers, sewing machines, etc. for 24 hours. [...] years. -Follow up with PCP. -Office number [phone]. [facility] Work Phone: Hospital Discharge instructions No data available for this section [facility] progress note No data available for this section [facility] reason for referral (narrative) , Refer to Dr. Mendiola for [employer] Referred by: LADAN EDWARDS, Abran Darling [facility] Summary Purpose Family History No Family History Records Found Relationship Condition Age at Onset Recorded Date/T yosi father Unknown Not Specified Unknown Relationship Condition Age at Onset Recorded Date/T yosi father Unknown Heart disease Unknown Not Specified Unknown Malignant neoplasm Unknown Advance Directives No Advanced Directives Records Found Advance Directive Response Recorded Date/ Time Advance Directives No December 06 023 8:46am Chief Complaint and Reason for [...] section and content) DATE CREATED AUTHOR 09/22/2021 [facility] DATE CREATED AUTHOR AUTHOR'S ORGANIZ ATION 10/18/2022 [facility] [place] [facility] DATE CREATED AUTHOR AUTHOR'S ORGANIZ ATION 01/29/2024 [facility] DATE CREATED AUTHOR AUTHOR'S ORGANIZ ATION 02/09/2024 [facility] DATE CREATED AUTHOR AUTHOR'S ORGANIZ ATION 03/27/2024 [facility] EPIC DATE CREATED AUTHOR AUTHOR'S ORGANIZ ATION 04/16/2024 [facility] Patient Care team informatio n (unrecognized section and content) Team Status: Active Member Role Status Dates Martir Herbert II MD Primary Care Provider Active Team Status: Inactive Member Role Status Dates Martir Herbert II MD Primary Care Provider Active Abran Ochoa MD Attending Provider Active [employer] Relationship Specialty Start Date End Date Martir Herbert II [address] [facility] [address] [place] [address] PCP - General Internal Medicine 02/06/23 [employer] Relationship Specialty Start Date End Date Martir Herbert II, MD [address] [facility] [address] [place] [address] PCP - General Internal Medicine 02/06/23 Team Status: Inactive Member Role Status Dates Martir Herbert II MD Primary Care Provider Active Juan Jiang MD Attending Provider Active [employer] Relationship Specialty Start Date End Date Martir Herbert II, MD [address] [place] [address] [place] [address] PCP - General Internal Medicine 02/06/23 [employer] Relationship Specialty Start Date End Date Martir Herbert II, MD [address] [place] [address] [place] [address] PCP - General Internal Medicine 02/06/23 [employer] Relationship Specialty Start Date End Date Martir Herbert II, MD [address] [place] [address] [place] [address] PCP - General Internal Medicine 02/06/23 [employer] Relationship Specialty Start Date End Date Martir Herbert II, MD [address] [place] [address] [place] [address] PCP - General Internal Medicine 02/06/23 Team [...] Other Provider Active Start: December 19, 2023 [employer] Relationship Specialty Start Date End Date Martir Herbert II, MD [address] [address] [place] [address] PCP - General Internal Medicine 02/06/23 Goals [...] or prosecute any alcohol or drug abuse patient.[facility] FoundationIn the event this information is protected by the Federal Confidentiality of Alcohol and Drug Abuse Patient Records regulations: The Federal rules restrict any use of the information to criminally investigate or prosecute any alcohol or drug abuse patient.[facility] FoundationIn the event this information is protected by the Federal Confidentiality of Alcohol and Drug Abuse Patient Records regulations: The Federal rules restrict any use of the information to criminally investigate or prosecute any alcohol or drug abuse patient.[facility] FoundationIn the event this information is protected by the Federal Confidentiality of Alcohol and Drug Abuse Patient Records regulations: The Federal rules restrict any use of the information to criminally investigate or prosecute any alcohol or drug abuse patient.[facility] FoundationIn the event this information is protected by the Federal Confidentiality of Alcohol and Drug Abuse Patient Records regulations: The Federal rules restrict any use of the information to criminally investigate or prosecute any alcohol or drug abuse patient.[facility] FoundationIn the event this information is protected by the Federal Confidentiality of Alcohol and Drug Abuse Patient Records regulations: The Federal rules restrict any use of the information to criminally investigate or prosecute any alcohol or drug abuse patient.[facility] FoundationIn the event this information is protected by the Federal Confidentiality of Alcohol and Drug Abuse Patient Records regulations: The Federal rules restrict any use of the information to criminally investigate or prosecute any alcohol or drug abuse patient.[facility] FoundationIn the event this information is protected by the Federal Confidentiality of Alcohol and Drug Abuse Patient Records regulations: The Federal rules restrict any use of the information to criminally investigate or prosecute any alcohol or drug abuse patient.[facility] Reason for Visit (unrecogniz ed section and [...] BE BASED ON THE PRIMARY CLINICAL RECORDS. [facility] [employer]. provides no warranty or guarantee of the accuracy or completeness of information in this document.
[2024-05-27 07:53] LABS: Erythrocyte Sedimentation Rate 9 mm/hr (<=20)
[2024-05-27 10:46] LABS: C Reactive Protein <0.50 mg/dL (<=0.50)
== END 2024-05-27 07:25 | disposition home or self-care (01) ==
LOC: LAB 07:26
PROVIDERS: PCP Internal Medicine; Visit Provider Internal Medicine Rheumatology
DX: M31.6 Other giant cell arteritis (principal); M19.90 Unspecified osteoarthritis, unspecified site; Z51.81 Encounter for therapeutic drug level monitoring
CPT/HCPCS: 36415; 85652; 86140

== ENCOUNTER 2024-07-01 07:41 | Outpatient (OUT) | payer MEDICARE, OTHER, SELFPAY ==
--- OUTSIDE RECORDS SUMMARY | 2024-07-01 07:43 | XMS_ITS | CCD ---
Author Organization [facility] CliniSyid Care Team Providers Care Clinical Tech Name Role Phone MARTIR HERBERT Primary Care Physician DR MARTIR HERBERT Admitting Unavailable KEON, DR POPE Primary Care Unavailable KEON, DR POPE Consulting Unavailable KEON, DR POPE Attending Unavailable LADAN, DR OSULLIVAN Attending Unavailable KEON, DR POPE Primary Care Unavailable LADAN, DR OSULLIVAN Admitting Unavailable LADAN, DR OSULLIVAN Consulting Unavailable MANGO Herbert Primary Care Provider [phone] MD Abran Ochoa Attending Provider Martir Herbert II Primary Care Provider Keon COBIAN MD, Daniel B Primary Care Provider [phone] MANGO Herbert Primary Care Provider [phone] MD Juan Jiang Attending Provider MANGO Herbert Primary Care Provider MD Armani Kelly Attending Provider [phone] Abran OCHOA Attending Unavailable Abran OCHOA Attending Unavailable OCHOA, Abran Darling Attending Unavailable OCHOAAbran R Attending Unavailable OCHOAAbran [...] MD, Daniel B Primary Care Provider [phone] MARTIR HERBERT II Primary Care Unavailable Jc [...] Allergy Unknown (qualifier value) [facility] (9 sources) Sulfonamides; Translations: [sulfonamides] Drug allergy Unknown (qualifier value) [facility] (5 sources) Penicillins; Translations: [PENICILLINS] Drug allergy (disorder) 3 Hives [facility] (1 source) Sulfonamides (Antibiotic) Drug allergy (disorder) 3 [facility] (9 sources) Penicillins Drug Allergy 3 [facility] (12 sources) Sulfonamides (Antibiotic); Translations: [SULFA (SULFONAMIDE ANTIBIOTICS)] Drug Allergy 3 [facility] (1 source) Penicillins Drug allergy (disorder) 4 [facility] (1 source) Sulfonamides (Antibiotic) Drug allergy (disorder) 4 [facility] Rep[facility] Medications Current Medications Medication Drug Class(es) Dates Sig (Normalized) Sig (Original) acetaminophen 325 mg / HYDROcodone bitartrate 7.5 mg oral tablet (1 source) Opioid Agonist Start: 01-04-2023 take 1 tablet by mouth once, then take 1 tablet by mouth every hour [place] 325 mg-7.5 mg oral tablet 1 tab(s), Oral, Once, 1 tab(s), Refill(s) 0, Take 1 hour prior to procedure, [facility]/pharmacy #[id number], 175, cm, 12/04/22 12:29:00 EDT, Height/Length Dosing, 89, kg, 12/04/22 12:29:00 EDT, Weight Dosing Start Date: 01/04/23 Status: Ordered aspirin 81 mg delayed release oral tablet (12 sources) Platelet Aggregation Inhibitor, Nonsteroidal Anti-inflammatory Drug Start: 05-29-2023 take 1 tablet by mouth once daily Aspirin (Aspir-81) 81 mg Tablet,Delayed Release (Dr/Ec) Active 81 MG PO Daily May 29, 2023 12:00am Comment on above: Take 81 mg by mouth once daily. Calcium Citrate (9 sources) calcium citrate (CITRACAL ORAL) Take by mouth. Active calcium citrate (CITRACAL ORAL) Take by mouth. 0 Active Comment on above: Take by mouth. cholecalciferol, vitamin D3, (VITAMIN D3 ORAL) (9 sources) cholecalciferol, vitamin D3, (VITAMIN D3 ORAL) Take by mouth. Active cholecalciferol, vitamin D3, (VITAMIN D3 ORAL) Take by mouth. 0 Active Comment on above: Take by mouth. Lactobacillus acidophilus (9 sources) Lactobacillus ac idophilus (PROBIOTIC ORAL) Take by mouth. Active Lactobacillus ac idophilus (PROBIOTIC ORAL) Take by mouth. 0 Active Comment on above: Take by mouth. Lactobacillus Combination No.4 (Probiotic) 3 billion cell Capsule (3 sources) Start: 05-29-20 take 3 capsules by mouth once daily Lactobacillus Combination No.4 (Probiotic) 3 billion cell Capsule Active 3000 MMU CELLS PO Daily May 29, 2023 12:00am administer with a meal lisinopril 10 mg oral tablet (20 sources) Angiotensin Converting Enzyme Inhibitor Start: 01-06-20 23 lisinopril (ZESTRIL) 10 mg tablet 01/05/2023 Active Start: 10-28-2019 Co Lisinopril Refills(s) 0 Start Date: 10/28/19 Status: Ordered omega-3 acid ethyl esters (u sp) 1000 mg oral capsule (12 sources) Start: 01-05-2023 omega-3 acid e thyl esters (LOVAZA) 1 gram capsule 01/05/2023 Active OTC PRODUCT (9 sources) OTC PRODUCT Eye and vision supplement Active OTC PRODUCT Eye and vision supplement 0 Active Comment on above: Eye and vision suppl ement oxybutynin chloride 5 mg oral tablet (2 sources) Cholinergic Muscarinic Antagonist Start: take 1 tablet by mouth at bedtime as needed oxybutynin 5 mg Tab 5 mg = 1 tab(s), Oral, Bedtime, PRN for urinary discomfort, # 30 tab(s), Refills(s) 11, Pharmacy: [facility]/pharmacy #[id number], 175, cm, 12/28/23 8:09:00 EDT, Height/Length Dosing, 88, kg, 12/28/23 8:09:00 EDT, Weight Dosing Start Date: 12/28/23 Status: Ordered take 1 tablet by mouth once alyssa y oxybutynin XL (DITROPAN XL) 5 mg 24 hr tablet Take 5 mg by mouth once daily. 0 Active Polyethylene Glycols (9 sources) polyethylene gly col 3350 (CLEARLAX ORAL) Take by mouth. Active polyethylene gly col 3350 (CLEARLAX ORAL) Take [...] 0 Active simvastatin 10 mg oral tablet (20 sources) HMG-CoA Reductase Inhibitor Start: 01-05-2023 take 1 tablet by mouth once daily at bedtime simvastatin (ZOCOR) 10 mg tablet Take 10 mg by mouth daily at bedtime. 01/05/2023 Active Start: 01-05-2023 take 20 mg by mouth once daily Simvastatin Active 20 MG PO Daily May 29, 2023 12:00am Start: 10-28-2019 simvastatin Re fills(s) 0 Start Date: 10/28/19 Status: Ordered Vit D3-Vit K2-[place] Ext (3 sources) Start: 05-29-2023 take 1 capsule by mouth once daily Vit D3-Vit K2-[place] Ext Active 25 CAP PO Daily May 29, 2023 12:00am Vitamins A,C,M-Modr-Euttgd (Preservision Areds) 4,296 mcg-226 mg-90 mg capsule (2 sources) Start: 12-18-2023 take 1 capsule by mouth twice daily Vitamins A,C,N-Pnrc-Bsrtep (Preservision Areds) 4,296 mcg-226 mg-90 mg capsule [...] Name Value Interpretation Reference Range Facil radha Armendariz 04-10-2024 CNOV Office Visit (RADTSA ) JOSE CAN ([id number]) 1940 M Date Time Provider Department 04/10/24 [...] Mendiola MD cc: Martir Herbert II, MD [address] [place] [address] Dr. Ochoa Allergies As of Date: 04/10/2024 Noted Allergy Reaction PENICILLINS 02/16/2023 2 - Rash SULFA (SULFONAMIDE ANTIBIOTICS) 02/16/2023 2 - Rash Date Reviewed: 04/10/2024 Reviewed by: Nichelle Elkins RN - Fully Assessed Primary Visit Diagnosis:Malignant neoplasm of prostate (HCC) [C61] Order(s):PSA (OUTSIDE) [1370609] Order #: [id number] Prescriptions as of 04/14/2024 - predniSONE (DELTASONE) [...] Notes: >> Nichelle Elkins RN [facility] Apr 10, 2024 9:32 AM Status: Signed AUA 4 Nichelle Elkins RN Disposition: Return in about 1 year (around 04/10/2025). Follow-up and Disposition History for Encounter Date Provider Department Center 04/10/2024 [id number] MENDIOLA DEVIN Bautista Encounter Status:Closed by Jc MENDIOLA on 04/14/24 Normal [facility] Patient Educationon 12-28-19 Patient Education [...] Follow these instructions at home: ? Take iwqy-waa-dlwufdl and prescription medicines only as told by [...] the medicine (more content not included)... Normal [facility] Urology Office/Clinic Noteon 12-28-2023 Urology Office/Clinic Note [...] IO s/p brachytherapy. Pt then presented to [facility] ER due to inability to urinate after catheter removal. Bladder scan was >500mL. Dc'd home with Mendoza catheter in place. Came to our office 09/21/23 for catheter removal per approval of PRW. No issues with urination after Mendoza was removed. See #2. Follow-up With When Contact Information LADAN EDWARDS, Abran Darling, [address] [address]- Additional Instructions: 6 mos w/ PSA Patient [...] Medications Co (more content not included)... Normal [facility] Comment on above: Result Comment: Elec tronically Signed By: Abran OCHOA MD\.br\Date and Time Signed: 12/28/23 08:53 EDT\.br\Electronically Co-Signed By: Agata Durant\Date and Time Co-Signed: 12/28/23 08:52 EDT Lab Reportson 12-24-2023 Lab Reports [id number] Normal [facility] PSA (OUTSIDE)on 12-24-2023 [facility] Anisocytosis LM Ql (Bld)Orde red By: Arden Marin on 12-19-2023 Anisocytosis Ql (Bld) Slight [facility] Basic Metabolic Panelon 11-23 Anion gap [Moles/Vol] 9.1 mmol/L Normal 6.0-15.0 [facility] Comment on above: Performed By: #### S CAN CBC, BMP #### [facility] [address] [place] [address] [place] Calcium [Mass/Vol] 8.5 mg/dL Low 8.6-10.3 [facility] Comment on above: Performed By: #### S CAN CBC, BMP #### [facility] [address] [place] [id number] [place] Chloride [Moles/Vol] 103 mmol/L Normal 98-107 [facility] Comment on above: Performed By: #### S CAN CBC, BMP #### [facility] [address] [place] [phone] [place] CO2 [Moles/Vol] 26.0 mmol/L Normal 21.0-31.0 [facility] Comment on above: Performed By: #### S CAN CBC, BMP #### [facility] [address] [place] [id number] [place] Creatinine [Mass/Vol] 0.74 mg/dL Normal 0.70-1.30 [facility] Comment on above: Performed By: #### S CAN CBC, BMP #### [place] [address] [place] Creatinine Clr Calc Pharmacy 78.34 Normal [facility] Comment on above: Result Comment: PERF ORMED BY: [place] [address] PATHOLOGIST [employer] OPERATOR CAREN DALEY M.D. Performed By: #### S CAN CBC, BMP #### [place] [address] [place] GFR/1.73 sq M.predicted MDRD (S/P/Bld) [Vol rate/Area] mL/min/{1.73_m2} Normal [facility] Comment on above: Performed By: #### S CAN CBC, BMP #### [address] Glucose [Mass/Vol] 88 mg/dL Normal 70-100 [facility] Comment on above: Result Comment: [place] Glucose Reference Range is dependent on time and content of last meal. Glucose of more than 200 mg/dL in a nonstressed, ambulatory subject supports the diagnosis of Diabetes Mellitus. ADA recommended reference range Performed By: #### S CAN CBC, BMP #### [address] Potassium [Moles/Vol] 4.1 mmol/L Normal 3.5-5.1 [facility] Comment on above: Performed By: #### S CAN CBC, BMP #### [place] [address] [place] Sodium [Moles/Vol] 134 mmol/L Low 136-145 [facility] Comment on above: Performed By: #### S CAN CBC, BMP #### [place] [address] [place] Urea nitrogen [Mass/Vol] 23 mg/dL Normal 7-25 [facility] Comment on above: Performed By: #### S CAN CBC, BMP #### [place] [address] [place] Basophils Auto (Bld) [#/Vol] Ordered By: Arden Marin on 12-19-2023 Basophils (Bld) [#/Vol] 0.1 10*3/uL 0.0-0.2 [facility] Basophils/100 WBC Auto (Bld) Ordered By: Arden Marin on 12-19-2023 Basophils/100 WBC (Bld) 0.4 % . [facility] Calcium [Mass/volume] in Ser um or PlasmaOrdered By: Arden Marin on 12-19-2023 Calcium [Mass/Vol] 8.5 mg/dL 8.6-10.3 [facility] Carbon dioxide, total [Moles /volume] in Serum or PlasmaOrdered By: Arden Marin on 12-19-2023 CO2 [Moles/Vol] 26.0 mmol/L 21.0-31.0 [facility] Chloride [Moles/volume] in S jerry or PlasmaOrdered By: Arden Marin on 12-19-2023 Chloride [Moles/Vol] 103 mmol/L 98-107 [facility] Creatinine [Mass/volume] in Serum or PlasmaOrdered By: Arden Marin on 12-19-2023 Creatinine [Mass/Vol] 0.74 mg/dL 0.70-1.30 [facility] ECG 12 lead ECGon 12-19-2023 ECG 12 lead ECG [facility] [place] [address] Electrocardiograph Report Signed Patient: Jose Can MR#: [id number] : 1940 Acct:[id number] Age/Sex: 83 / M ADM Date: 12/19/23 Loc: [place] Room: Type: [facility] Attending Dr: Armani Kelly MD Ordering Provider: [...] previous ECGs available Confirmed by CAROLA EDWARDS [id number] on 12/19/2023 6:51:43 AM Referred By: Electronically Signed By:ABRAN SRIVASTAVA MD [facility] Transcribed By: MUS Signed By Pal Srivastava MD 12/19/23 0651 Normal [facility] Eosinophils Auto (Bld) [#/Vo l]Ordered By: Arden Marin on 12-19-2023 Eosinophils (Bld) [#/Vol] 0.1 10*3/uL 0.0-0.45 [facility] Eosinophils/100 WBC Auto (Bl d)Ordered By: Arden Marin on 12-19-2023 Eosinophils/100 WBC (Bld) 0.3 % . [facility] Erythrocyte distribution wid th Auto (RBC) [Ratio]Ordered By: Arden Marin on 12-19-2023 Erythrocyte distribution width (RBC) [Ratio] 13.9 % 12.0-14.8 [facility] Glucose [Mass/volume] in Ser um or PlasmaOrdered By: Arden Marin on 12-19-2023 Glucose [Mass/Vol] 88 mg/dL 70-100 [facility] Comment on above: ADA recommended refe rence rangeRandom Glucose Reference Range is dependent on time and content of last meal. Glucose of more than 200 mg/dL in a nonstressed, ambulatory subject supports the diagnosis of Diabetes Mellitus. Hematocrit Auto (Bld) [Volum e fraction]Ordered By: Arden Marin on 12-19-2023 Hematocrit (Bld) [Volume fraction] 40.8 % 38.8-50.0 [facility] Hemoglobin [Mass/volume] in BloodOrdered By: Arden Marin on 12-19-2023 Hemoglobin (Bld) [Mass/Vol] 13.4 g/dL 13.0-17.0 [facility] Isaías 12-19-2023 L Specimen: [id number] Received: 12/19/23 Status: RANDI Capellan Num: [id number] Spec Type: Surgical Subm Dr: Armani Kelly MD Tissues: A Artery Temporal- Biopsy (RT TEMPORAL ARTERY BX) Procedures: Trichrome/2, CD45/2, HE/20, Gross/Micro L4, CD20/2, CD3/2, CD68/2 Age/ Patient Sex Location Account Attending Physician PamellaJose Oh 83/M [place] [id number] Armani Kelly MD SPEC NUM: RECD: 12/19/23 STATUS: RANDI CAPELLAN NUM: [id number] FAIZAN: 12/19/[address] [facility] [address]: Armani Kelly MD ENTERED: 12/19/[address] [facility] [address]: SPEC TYPE: Surgical DEPT: S [...] Specimen: Received: 12/19/23 Status: RANDI Capellan Num: [id number] Spec Type: Surgical Subm Dr: Armani Kelly MD Tissues: A Artery Temporal- Biopsy (RT TEMPORAL ARTERY BX) Procedures: Trichrome/2, CD45/2, HE/20, Gross/Micro L4, CD20/2, CD3/2, CD68/2 -------- Patient: PamellaJose J [id number] (Continued) -------- Specimen: [id number] Received: 12/19/23 (Continued) Signed (signature on file) Mee Bush MD 12/21/231838 -------- Specimen: [id number] Received: 12/19/23 Status: RANDI Capellan Num: [id number] Spec Type: Surgical Subm Dr: Armani Kelly MD Tissues: A Artery Temporal- Biopsy (RT TEMPORAL ARTERY BX) Procedures: Trichrome/2, CD45/2, HE/20, Gross/Micro L4, CD20/2, CD3/2, CD68/2 -------- Patient: Jose Can [id number] (Continued) -------- Specimen: [id number] Received: 12/19/23 (Continued) Gross Description Received fresh labeled with the patient's name, date of and temporal artery biopsy right is a 7.8 x 0.3 cm cabrera-pink tubular tissue with attached silver metal clips. Sectioning reveals a patent lumen. Entirely submitted in two cassettes labeled A1-A2. CPT Codes 02008 93910, [id number] -------- -------- Specimen: [id number] Received: 12/19/23 Status: RANDI Capellan Num: [id number] Spec Type: Surgical Subm Dr: Armani Kelly MD Tissues: A Artery Temporal- Biopsy (RT TEMPORAL ARTERY BX) Procedures: Trichrome/2, CD45/2, HE/20, Gross/Micro L4, CD20/2, CD3/2, CD68/2 -------- Patient: Jose Can [id number] (Continued) -------- Signed (signature on file) Mee Bush MD 12/21/23 1839 Normal [facility] Leukocytes [#/volume] correc claudia for nucleated erythrocytes in Blood by Automated counOrdered By: Arden Marin on 12-19-2023 WBC corrected for nucl RBC Auto (Bld) [#/Vol] 16.2 10*3/uL 4.1-10.5 [facility] Lymphocytes Auto (Bld) [#/Vo l]Ordered By: Arden Marin on 12-19-2023 Lymphocytes (Bld) [#/Vol] 2.9 10*3/uL 1.00-4.8 [facility] Lymphocytes/100 WBC Auto (Bl d)Ordered By: Arden Marin on 12-19-2023 Lymphocytes/100 WBC (Bld) 17.7 % . [facility] MCH Auto (RBC) [Entitic mass ]Ordered By: Arden Marin on 12-19-2023 MCH (RBC) [Entitic mass] 28.9 pg 27.5-35.2 [facility] MCHC Auto (RBC) [Mass/Vol]Or dered By: Arden Marin on 12-19-2023 MCHC (RBC) [Mass/Vol] 32.8 g/dL 32.5-35.6 [facility] MCV Auto (RBC) [Entitic vol] Ordered By: Arden Marin on 12-19-2023 MCV (RBC) [Entitic vol] 88.0 fL 83.5-101 [facility] Microcytes LM Ql (Bld)Ordere d By: Arden Marin on 12-19-2023 Microcytes Ql (Bld) Slight [facility] Monocytes Auto (Bld) [#/Vol] Ordered By: Arden Marin on 12-19-2023 Monocytes (Bld) [#/Vol] 1.3 10*3/uL 0.0-0.8 [facility] Monocytes/100 WBC Auto (Bld) Ordered By: Arden Marin on 12-19-2023 Monocytes/100 WBC (Bld) 8.3 % . [facility] Neutrophils Auto (Bld) [#/Vo l]Ordered By: Arden Marin on 12-19-2023 Neutrophils (Bld) [#/Vol] 11.9 10*3/uL 1.8-7.7 [facility] Neutrophils/100 WBC Auto (Bl d)Ordered By: Arden Marin on 12-19-2023 Neutrophils/100 WBC (Bld) 73.3 % . [facility] No Panel InformationOrdered By: Arden Marin on 12-19-2023 Estimated GFR (CKD-EPI) > 60.0 mL/Min [facility] Creatinine Clearance (Chem 78.34 [facility] Nucleated erythrocytes [Pres ence] in Blood by Automated countOrdered By: Arden Marin on 12-19-2023 Nucleated RBC Auto Ql (Bld) 0.1 /100{WBC} 0-0.5 [facility] Ovalocyte detectionOrdered B y: Arden Marin on 12-19-2023 Ovalocytes LM Ql (Bld) Slight [facility] Platelet adequacy [Presence] in Blood by Light microscopyOrdered By: Arden Marin on 12-19-2023 Platelets LM Ql (Bld) Normal Normal [facility] Platelet mean volume Auto (B ld) [Entitic vol]Ordered By: Arden Marin on 12-19-2023 Platelet mean volume (Bld) [Entitic vol] 7.4 fL 6.6-10.1 [facility] Platelet morphology finding [Identifier] in BloodOrdered By: Arden Marin on 12-19-2023 Platelet morphology finding Nom (Bld) Normal Normal [facility] Platelets Auto (Bld) [#/Vol] Ordered By: Arden Marin on 12-19-2023 Platelets (Bld) [#/Vol] 364 10*3/uL 150-450 [facility] Platelets Large [Presence] i n Blood by Light microscopyOrdered By: Arden Marin on 12-19-2023 Platelets Large LM Ql (Bld) Slight [facility] Poikilocytosis [Presence] in Blood by Light microscopyOrdered By: Arden Marin on 12-19-2023 Poikilocytosis LM Ql (Bld) Slight [facility] Potassium [Moles/volume] in Serum or PlasmaOrdered By: Arden Marin on 12-19-2023 Potassium [Moles/Vol] 4.1 mmol/L 3.5-5.1 [facility] RBC Auto (Bld) [#/Vol]Ordere d By: Arden Marin on 12-19-2023 RBC (Bld) [#/Vol] 4.64 10*6/uL 3.90-5.60 [facility] RBC morphologyOrdered By: Kylah Marin on 12-19-2023 RBC morphology finding Nom (Bld) N/A [facility] Scan and CBCon 12-19-2023 Anisocytosis Ql (Bld) Slight Normal [facility] Comment on above: Performed By: #### S CAN CBC, BMP #### [facility] [address] [place] [address] [place] Basophils (Bld) [#/Vol] 0.1 10*3/uL Normal 0.0-0.2 [facility] Comment on above: Performed By: #### S CAN CBC, BMP #### [facility] [address] [place] [address] [place] Basophils/100 WBC (Bld) 0.4 % Normal . [facility] Comment on above: Performed By: #### S CAN CBC, BMP #### [place] [address] [place] Eosinophils (Bld) [#/Vol] 0.1 10*3/uL Normal 0.0-0.45 [facility] Comment on above: Performed By: #### S CAN CBC, BMP #### [address] Eosinophils/100 WBC (Bld) 0.3 % Normal . [facility] Comment on above: Performed By: #### S CAN CBC, BMP #### [address] Erythrocyte distribution width (RBC) [Ratio] 13.9 % Normal 12.0-14.8 [facility] Comment on above: Performed By: #### S CAN CBC, BMP #### [address] Hematocrit (Bld) [Volume fraction] 40.8 % Normal 38.8-50.0 [facility] Comment on above: Performed By: #### S CAN CBC, BMP #### [place] [address] [place] Hemoglobin (Bld) [Mass/Vol] 13.4 g/dL Normal 13.0-17.0 [facility] Comment on above: Performed By: #### S CAN CBC, BMP #### [address] Large Platelets Slight Normal [facility] Comment on above: Result Comment: PERF ORMED BY: [place] [address] PATHOLOGIST [employer] OPERATOR CAREN DALEY M.D. Performed By: #### S CAN CBC, BMP #### [place] [address] [place] Lymphocytes (Bld) [#/Vol] 2.9 10*3/uL Normal 1.00-4.8 [facility] Comment on above: Performed By: #### S CAN CBC, BMP #### [place] [address] [place] Lymphocytes/100 WBC (Bld) 17.7 % Normal . [facility] Comment on above: Performed By: #### S CAN CBC, BMP #### [address] MCH (RBC) [Entitic mass] 28.9 pg Normal 27.5-35.2 [facility] Comment on above: Performed By: #### S CAN CBC, BMP #### [address] MCV (RBC) [Entitic vol] 88.0 fL Normal 83.5-101 [facility] Comment on above: Performed By: #### S CAN CBC, BMP #### [address] Mean Corpuscular HGB Conc 32.8 g/dL Normal 32.5-35.6 [facility] Comment on above: Performed By: #### S CAN CBC, BMP #### [address] Microcytosis Slight Normal [facility] Comment on above: Performed By: #### S CAN CBC, BMP #### [address] Monocytes (Bld) [#/Vol] 1.3 10*3/uL High 0.0-0.8 [facility] Comment on above: Performed By: #### S CAN CBC, BMP #### [address] Monocytes/100 WBC (Bld) 8.3 % Normal . [facility] Comment on above: Performed By: #### S CAN CBC, BMP #### [address] Neutrophils (Bld) [#/Vol] 11.9 10*3/uL High 1.8-7.7 [facility] Comment on above: Performed By: #### S CAN CBC, BMP #### [address] Neutrophils/100 WBC (Bld) 73.3 % Normal . [facility] Comment on above: Performed By: #### S CAN CBC, BMP #### [address] NRBC% 0.1 /100{WBC} Normal 0-0.5 [facility] Comment on above: Performed By: #### S CAN CBC, BMP #### [address] Ovalocytes Slight Normal [facility] Comment on above: Performed By: #### S CAN CBC, BMP #### [address] Platelet Estimate Normal Normal Normal [facility] Comment on above: Performed By: #### S CAN CBC, BMP #### [address] Platelet mean volume (Bld) [Entitic vol] 7.4 fL Normal 6.6-10.1 [facility] Comment on above: Performed By: #### S CAN CBC, BMP #### [address] Platelet Morphology Normal Normal Normal [facility] Comment on above: Performed By: #### S CAN CBC, BMP #### [place] [address] [place] Platelets (Bld) [#/Vol] 364 10*3/uL Normal 150-450 [facility] Comment on above: Performed By: #### S CAN CBC, BMP #### [place] [address] [place] Poikilocytosis Slight Normal [facility] Comment on above: Performed By: #### S CAN CBC, BMP #### [place] [address] [place] RBC (Bld) [#/Vol] 4.64 10*6/uL Normal 3.90-5.60 [facility] [facility] Comment on above: Performed By: #### S CAN CBC, BMP #### [address] WBC (Bld) [#/Vol] 16.2 10*3/uL High 4.1-10.5 [facility] Comment on above: Performed By: #### S CAN CBC, BMP #### [facility] [address] Serum or plasma anion gap de terminationOrdered By: Arden Marin on 12-19-2023 Anion gap [Moles/Vol] 9.1 mmol/L 6.0-15.0 [facility] Sodium [Moles/volume] in Ser um or PlasmaOrdered By: Arden Marin on 12-19-2023 Sodium [Moles/Vol] 134 mmol/L 136-145 [facility] Urea nitrogen [Mass/volume] in Serum or PlasmaOrdered By: Arden Marin on 12-19-2023 Urea nitrogen [Mass/Vol] 23 mg/dL 7-25 [facility] WBC Auto (Bld) [#/Vol]Ordere d By: Arden Marin on 12-19-2023 WBC (Bld) [#/Vol] 16.2 10*3/uL 4.1-10.5 [facility] Consultation Noteon 10-12-19 Consultation Note [id number]#1. 00TIFF Viktor [facility] CNOVon 10-11-2023 CNOV Office Visit (RADTSA ) JOSE CAN ([id number]) 1940 M Date Time Provider Department 10/11/23 9:15 AM Jc MENDIOLA During your visit today, we recorded the following information about you: Temperature Pulse Respiration Blood pressure 97.3 degrees 87/minute 16/minute 125/67 Weight 86 kg Jc Mendiola MD 10/11/2023 9:38 AM Signed Radiation Oncology - Follow Up Note PATIENT NAME: Jose Can PATIENT DIAGNOSIS: Prostate adenocarcinoma, initial PSA 3.1, biopsy Martelle score 3 + 4 = 7 (grade [...] ASSESSMENT/PLAN: Prostate adenocarcinoma, initial PSA 3.1, biopsy Martelle score 3 + 4 = 7 (grade [...] Mendiola MD cc: Martir Herbert II, MD [address] [place] [address] Debra Anthony LPN 10/11/2023 9:38 AM Signed AUA= 5 Allergies As of Date: 10/11/2023 Noted Allergy Reaction PENICILLINS 02/16/2023 2 - Rash SULFA (SULFONAMIDE ANTIBIOTICS) 02/16/2023 2 - Rash Date Reviewed: 09/19/2023 Reviewed by: Debra Quinn LPN - Fully Assessed Primary Visit Diagnosis:Malignant neoplasm of prostate (HCC) [C61] Order(s):PSA (OUTSIDE) [9801723] Order #: [id number] PSA/PROSTSPECAG DIAG [SQPSA] Order #: [id number] FUTURE Prescriptions as of 10/11/2023 - simvastatin [...] 10/11/2023 Visit Notes: >> Debra Quinn LPN [facility] Oct 11, 2023 9:26 AM Status: Signed AUA= 5 Disposition: Return in about 6 months (around 04/10/2024). Follow-up and Disposition History for Encounter Date Provider Department Center 10/11/2023 [id number] MENDIOLA [facility] Encounter Status:Closed by Jc MENDIOLA on 1/18/24 Normal [facility] Consultation Noteon 10-09-19 24 Consultation Note [id number]# 1.00TIFF Normal [facility] ED Note-Physicianon 10-09-19 24 ED Note-Physician [id number]#1. 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 Take xamr-bzk-gzzcziz or prescription medicines. ? Eat foods that are high in fiber, such as beans, whole grains, and fresh fruits and vegetables. ? Limit foods that are high in fat and processed sugars, such as fried or sweet foods. General instructions ? Take ibdz-oex-xytcrjo and prescription medicines only as told by [...] if: (more content not included)... Normal [facility] Urology Office/Clinic Noteon 10-08-2023 Urology Office/Clinic [...] 09/12/23 in our office. Then presented to [facility] ER due to inability to urinate after [...] (7 mm x 4mm). TRUS/bx 01/16/23 - Martelle 6 (3+3) in 4 cores and Martelle 7 (3 +4) in 1 core. Brachytherapy [...] our office after brachytherapy. Then presented to [facility] ER due to inability to urinate after catheter removal. Bladder scan was >500mL. Dc'd home with Mendoza catheter in place. Came to our office 09/21/23 for catheter removal per approval of PRW. Reports he has not had any issues urinating since. Follow-up With When Contact Information LADAN EDWARDS, Abran Darling, URL [facility] [address], [place] [address]- [phone] Additional Instructions: 3 mos w/ PSA Patient Education Brachytherapy for Prostate Cancer, Care After I, Michaeal Herbert, personally scribed for Dr. Ochoa on [...] hernia rep (more content not included)... Normal [facility] Comment on above: Result Comment: Elec tronically Signed By: Abran OCHOA MD\.br\Date and Time Signed: 10/08/23 10:36 EST\.br\Electronically Co-Signed By: Michaela Herbert\.br\Date and Time Co-Signed: 10/08/23 10:35 EST Ambulatory Visit Summaryon 1 Ambulatory Visit Summary JOSE CAN :1940 Visit Date:09/21/2023 Ambulatory Visit Instructions Your Care Team Attending Physician - Arban OCHOA MD Primary Care Physician - MARTIR [...] EDWARDS, Abran Darling Where: [facility] Normal [address] [place] [address]- \.br\ Medications\.br \ What When Instructions\.b r\ [...] for choosing us for your care.\.br\ \.br\ [facility] CNOVon 09-19-2023 CNOV Office Visit (RADTSA ) JOSE CAN ([id number]) 1940 M Date Time Provider Department 09/19/23 [...] ASSESSMENT/PLAN: Prostate adenocarcinoma, initial PSA 3.1, biopsy Martelle score 3 + 4 = 7 (grade [...] Mendiola MD cc: Martir Herbert II, MD [address] [place] [address] No referring provider defined for this encounter. Allergies As of Date: 09/19/2023 Noted Allergy Reaction PENICILLINS 02/16/2023 2 - Rash SULFA (SULFONAMIDE ANTIBIOTICS) 02/16/2023 2 - Rash Date Reviewed: 09/19/2023 Reviewed by: Debra Quinn LPN - Fully Assessed Reason for Visit: Prostate Cancer [590] Primary Visit Diagnosis:Malignant neoplasm of prostate (HCC) [C61] Order(s):PSA/PROSTSPE CAG DIAG [SQPSA] Order #: [id number] FUTURE Prescriptions as of 09/19/2023 - simvastatin [...] for Encounter Date Provider Department Center 09/19/2023 [id number] MENDIOLA DEVIN BAUTISTA Encounter Status:Closed by Jc MENDIOLA on 09/19/23 Normal [facility] Ambulatory Visit Summaryon 1 11-13-2022 [...] EDWARDS, Abran Darling Where: [facility] Normal [address] [place] [address] [place] [address]- \.br\ Medications\.br \ What When Instructions\.b r\ [...] for choosing us for your care.\.br\ \.br\ [facility] Lab Reportson 09-07-2023 Lab Reports [id number]#1 .00TIFF Normal [facility] Operative Reporton Operative Report [id number]#1 .00TIFF Normal [facility] RAD - MISCon 09-07-2023 RAD - MISC [id number]#1 .00TIFF Normal [facility] CNOVon 09-06-2023 CNOV Office Visit (RADTSA ) JOSE CAN ([id number]) 1940 M Date Time Provider Department 09/06/23 9:00 AM Jc MENDIOLA During your visit today, we recorded the following information about you: Jc Mendiola MD 09/06/2023 3:18 PM Signed Date: 09/06/23 Facility: [facility] Procedure: prostate transperineal brachytherapy implant Diagnosis: Prostate [...] results documented. Edilma Mendiola MD [facility] Allergies As of Date: 09/06/2023 Noted [...] Encounter Status:Closed by Jc MENDIOLA on 09/06/23 [facility] Consultation Noteon 08-10-20 Consultation Note [id number]#1 .00TIFF [facility] CNPNon 07-24-2023 TIMN Telephone (RADTSA) JOSE CAN ([id number]) 1940 M Date Time Provider Department 07/24/23 Jc MENDIOLASUSIEA During your visit today, we recorded the [...] Status:Closed by DEBRA QUINN on 07/25/23 Normal [facility] ECG 12-Leadon 07-24-2023 ECG 12-Lead [id number]#1 .00TIFF Normal [facility] Formson 07-24-2023 Forms [id number]#1 .00TIFF Normal [facility] ECG 12-Leadon 07-20-2023 ECG 12-Lead [id number]#1 .00TIFF [facility] Lab Reportson 07-20-2023 Lab Reports [id number]#1. 00TIFF [facility] Lab Reports [id number] 0 [id number] #1.00TIFF Normal [facility] Lab Reports [id number]#1. 00TIFF [facility] RAD - MISCon 07-20-2023 RAD - MISC [id number]#1. 00TIFF Normal [facility] CNOVon 07-11-2023 CNOV Office Visit (RADTSA ) JOSE CAN ([id number]) 1940 M Date Time Provider Department 07/11/23 [...] Encounter Status:Closed by Jc MENDIOLA on 07/12/23 [facility] Consent for Procedure/Surger n 06-27-2023 Consent for Procedure/Surgery [id number]# 1.00CD:127 [facility] CNPRosa Isela 06-04-2023 TIMN Telephone (RADTSA) JOSE CAN ([id number]) 1940 M Date Time Provider Department 06/04/23 [...] Encounter Status:Closed by NICHELLE ELKINS on 06/04/23 [facility] 05-29-2023 L - -------- Specimen: [id number] Received: 05/29/23 Status: RANDI Marilia Num: [id number] Spec Type: Surgical Subm Dr: Juan Jiang MD Tissues: A Colon Biopsy (ASCENDING POLYP) Procedures: Areli RAMIREZ/Micro L4 -------- Age/ Patient Sex Location Account Attending Physician -------- Jose Can /[facility] [id number] Juan Jiang MD -------- SPEC NUM: [id number] RECD: 05/29/23 STATUS: JORGEGilmar CAPELLAN NUM: [id number] FAIZAN: 05/29/23- [facility] DR: Juan Jiang MD ENTERED: 05/29/[address]: SPEC TYPE: Surgical DEPT: S ORDERED: HE/2, Gross/Micro L4 ORDERED: , Gross/Micro L4 Pathological Diagnosis Colon, ascending, polyp, [...] microscopic examination confirms the diagnosis. CPT Codes 20623 -------- -------- Specimen: [id number] Received: 05/29/23 Status: RANDI Capellan Num: [id number] Spec Type: Surgical Subm Dr: Juan Jiang MD Tissues: A Colon Biopsy (ASCENDING POLYP) Procedures: , Gross/Micro L4 -------- Patient: Jose Can [id number] (Continued) -------- Signed (signature on file) Kashmir Linares MD 05/31/23 1712 Normal [facility] Rebecca 05-02-2023 CNPN Telephone (CreactivesA) PAMELLAJOSE ([id number]) 1940 M Date Time Provider Department 05/02/23 [...] colonoscopy was done per Dr Franco at [facility] in 2016. It was normal. [...] me when they scheduled it for. Jak MatthewDona 05/03/2023 11:09 AM Signed Patients daughter called [...] Encounter Status:Closed by NICHELLE ELKINS on 05/29/23 [facility] Consultation Noteon 02-17-20 Consultation Note [id number]#1 .00CD:[address] Patient Educationon 02-06-20 23 Patient Education Oncology Prostate Cancer The prostate [...] under a microscope. This is called the Martelle score and the total score can range from 6?10, indicating how likely it is that the cancer will spread (metastasize) to other parts of the body. The higher the score, the greater the likelihood that the cancer will spread. ? Martelle 6 or lower: This indicates that the [...] external be (more content not included)... Normal [facility] Progress Note-Nurseon 2022 Progress Note-Nurse JOSE CAN :1940 Visit Date:02/05/2023 Ambulatory Visit Instructions Your Diagnosis Prostate cancer Prostate nodule BPH with obstruction/lower urinary tract symptoms Elevated PSA Tests Performed Urnls Dip Stick Auto w/o Microscopy POC 32536 Your Care Team Attending Physician - LADAN EDWARDS, Abran Darling Primary Care Physician - KEON EDWARDS, MARTIR Griffin This Is Your Medications List Contact prescribing physician if questions or concerns lisinopril (Co Lisinopril) simvastatin [Image Removed: STOP]Stop taking these medications acetaminophen-hydroco done ([place] 325 mg-7.5 mg oral tablet) Procedures Performed [...] EDWARDS, Abran Darling Where: [facility] Normal Prostate nodule\.br\ Medications\.br \ What When Instructions\.b r\ Unchanged lisinopril (Co Lisinopril) Contact prescribing physician if questions or concerns \.br\ Unchanged simvastatin Contact prescribing physician if questions or concerns \.br\ \.br\ What How Much When Why Comments\.br\ Stop Taking acetaminophen-h ydrocodone ([place] 325 mg-7.5 mg oral tablet) 1 Tablets By Mouth Once Prostate nodule Take 1 hour prior to procedure \.br\ Test Results\.br\ Urnls Dip Stick Auto w/o Microscopy POC 20209 (02/05/2023)\.b r\ Bilirubin Urine Dipstick - Negative\.br\ Blood Urine Dipstick - Negative\.br\ Glucose Urine Dipstick - Negative\.br\ Ketones Urine Dipstick - Negative\.br\ Leukocytes Urine Dipstick - Negative\.br\ Nitrite Urine Dipstick - Negative\.br\ Protein Urine Dipstick - Negative\.br\ Specific [place] Urine Dipstick - 1.020\.br\ Urine Appearance Urine [...] prostate cells (well differentiated) .\.br\ ? \.br\ Martelle 7: This indicates that the cancer cells look somewhat similar to normal prostate cells (moderately differentiated) .\.br\ ? \.br\ Alpa 8, 9, or 10: [...] testosterone, one of the male hormones, by:\ [facility] Urology Office/Clinic Noteon 02-05-2023 Urology Office/Clinic Note [...] done 01/16/2023 are positive for Prostate cancer. Martelle 3+3= 6 (4 cores) and Martelle 3 +4 (1 core). Given the cancer [...] cons of each therapy today, and this Leslie prostate cancer book was provided. Patient given his age, and Martelle score is not a surgical candidate for prostatectomy. Patient is very active with work and is leaning toward maybe just doing [employer]. He will need referral to Dr. [...] Ochoa. Will refer to Dr. Mendiola for [employer] implant in . Follow-up With When Contact Information LADAN EDWARDS, Abran Darling, ISSAC In 6 months [facility] [address], [place] [address] [phone] Additional Instructions: Will refer to Dr. Mendiola Patient Education Prostate Cancer Christina Lopez, personally scribed for Dr. Ochoa on 02/05/2023 [...] biopsy of (more content not included)... Normal [facility] Comment on above: Result Comment: Elec tronically Signed By: Abran OCHOA MD\.br\Date and Time Signed: 02/05/23 09:38 EDT\.br\Electronically Co-Signed By: Christina Lima\.br\Date and Time Co-Signed: 02/05/23 09:36 EDT Creatinine (Bld) [Mass/Vol]O rdered By: Abran Ochoa on 12-19-2022 Creatinine [Mass/Vol] 0.9 mg/dL 0.6-1.3 [facility] Comment on above: ER/ESD physician is notified/shown all ISTAT results.Critical values may be confirmed by laboratory testing ifdeemed necessary by ER attending doctor. PSA, FREE AND TOTAL RATIOon 10-18-2022 % Free PSA 21.9 % Normal [facility] Comment on above: Result Comment: The [...] men. Performed By: #### P SAFREE #### [facility] [address] [address] [address] Deisi Bush Prostate specific Ag [Mass/Vol] 3.1 ng/mL Normal 0.0-4.0 [facility] Comment on above: Result Comment: Cris PRAJAPATI methodology. . According to the [place] [employer], Serum PSA should decrease and [...] disease. Performed By: #### P SAFREE #### [facility] [address] [place] [address] Dr. Deisi Bush PSA, Free 0.68 ng/mL Normal N/A [facility] Comment on above: Result Comment: Cris PRAJAPATI methodology. Performed By: #### P SAFREE #### [facility] [address] [place] [address] Dr. Deisi Bush CBC AUTO DIFFon 03-04-2022 BASO # 0.0 103/ul Normal 0.0-0.1 [facility] Comment on above: Performed By: #### C BC #### [facility] [address] [place] [address] Dr. Deisi Bush Basophils/100 WBC (Bld) 0.6 % Normal 0.2-2.0 [facility] Comment on above: Performed By: #### C BC #### [facility] [address] [place] [address] Dr. Deisi Bush EO # 0.5 103/ul Normal 0.0-0.7 [facility] Comment on above: Performed By: #### C BC #### [facility] [address] [place] [address] Dr. Deisi Bush Eosinophils/100 WBC (Bld) 10.2 % Critically high 0.9-7.0 [facility] Comment on above: Performed By: #### C BC #### [facility] [address] [place] [address] Dr. Deisi Bush Erythrocyte distribution width (RBC) [Ratio] 13.4 % Normal 11.0-15.0 [facility] Comment on above: Performed By: #### C BC #### [facility] [address] [place] [address] Dr. Deisi Bush Hematocrit (Bld) [Volume fraction] 42.3 % Normal 42.0-54.0 [facility] Comment on above: Performed By: #### C BC #### [facility] [address] [place] [address] Dr. Deisi Bush Hemoglobin (Bld) [Mass/Vol] 14.1 g/dL Normal 14.0-18.0 [facility] Comment on above: Performed By: #### C BC #### [facility] [address] [place] [address] Dr. Deisi Bush IG # 0.01 10e3/ul Normal 0.00-0.03 [facility] Comment on above: Performed By: #### C BC #### [facility] [address] [place] [address] Dr. Deisi Bush IG % 0.2 % Normal 0.0-0.5 [facility] Comment on above: Performed By: #### C BC #### [facility] [address] [place] [address] Dr. Deisi Bush LYMPH # 2.4 103/ul Normal 1.2-3.8 [facility] Comment on above: Performed By: #### C BC #### [facility] [address] [place] [address] Dr. Deisi Bush Lymphocytes/100 WBC (Bld) 46.5 % Normal 20.5-60.0 [facility] Comment on above: Performed By: #### C BC #### [facility] [address] [place] [address] Dr. Deisi Bush MANUAL DIFF REQ NO Normal [facility] Comment on above: Performed By: #### C BC #### [facility] [address] [place] [address] Dr. Deisi Bush MCH (RBC) [Entitic mass] 30.5 pg Normal 25.9-34.0 [facility] Comment on above: Performed By: #### C BC #### [facility] [address] [place] [address] Dr. Deisi Bush MCHC (RBC) [Mass/Vol] 33.3 g/dL Normal 29.9-35.2 [facility] Comment on above: Performed By: #### C BC #### [facility] [address] [place] [address] Dr. Deisi Bush MCV (RBC) [Entitic vol] 91.4 fL Normal 80.0-94.0 [facility] Comment on above: Performed By: #### C BC #### [facility] [address] [place] [address] Dr. Deisi Bush MONO # 0.6 103/ul Normal 0.3-0.8 [facility] Comment on above: Performed By: #### C BC #### [facility] [address] [address] [address] Deisi Bush Monocytes/100 WBC (Bld) 10.6 % Normal 1.7-12.0 [facility] Comment on above: Performed By: #### C BC #### [facility] [address] [address] [address] Diesi Bush NEUT # 1.7 103/ul Normal 1.4-6.5 [facility] Comment on above: Performed By: #### C BC #### [facility] [address] [place] [address] Dr. Deisi Bush Neutrophils/100 WBC (Bld) 31.9 % Critically low 43.0-75.0 [facility] Comment on above: Performed By: #### C BC #### [facility] [address] [place] [address] Dr. Deisi Bush Platelet mean volume (Bld) [Entitic vol] 9.2 fL Critically low 9.5-13.5 [facility] Comment on above: Performed By: #### C BC #### [facility] [address] [place] [address] Dr. Deisi Bush PLT 219 103/ul Normal 150-450 [facility] Comment on above: Performed By: #### C BC #### [facility] [address] [place] [address] Dr. Deisi Bush RBC 4.63 106/ul Critically low 4.70-6.10 [facility] Comment on above: Performed By: #### C BC #### [facility] [address] [place] [address] Dr. Deisi Bush WBC 5.2 103/ul Normal 4.0-11.0 [facility] Comment on above: Performed By: #### C BC #### [facility] [address] [place] [address] Dr. Deisi Bush LIPID PROFILEon 03-04-2022 CHOL-HDL RATIO NORM SEE BELOW Normal [facility] Comment on above: Result Comment: 3.3 - 4.4 LOW RISK 4.4 - 7.1 AVERAGE RISK 7.1 - 11.0 MODERATE RISK >11.0 HIGH RISK Performed By: #### T SH, LIPID, CMP #### [facility] [address] [address] [address] Deisi Bush Cholesterol [Mass/Vol] 125 mg/dL Normal <=200 [facility] Comment on above: Performed By: #### T SH, LIPID, CMP #### [facility] [address] [address] [address] Deisi Bush Cholesterol in HDL [Mass/Vol] 37 mg/dL Critically low 40-60 [facility] Comment on above: Performed By: #### T SH, LIPID, CMP #### [facility] [address] [address] [address] Deisi Bush Cholesterol in LDL [Mass/Vol] 75.6 mg/dL Normal [facility] Comment on above: Performed By: #### T SH, LIPID, CMP #### [facility] [address] [address] [address] Deisi Bush Cholesterol.total/Chol esterol in HDL [Mass ratio] 3.4 {ratio} Normal [facility] Comment on above: Performed By: #### T SH, LIPID, CMP #### [facility] [address] [address] [address] Deisi Bush HDL NORMAL > or = 60 mg/dl - LO W CARDIOVASCULAR RISK <40 mg/dl - HIGH CARDIOVASCULAR RISK Normal [facility] Comment on above: Performed By: #### T SH, LIPID, CMP #### [facility] [address] [address] [address] Deisi Bush LDL CALC NORMAL SEE BELOW Normal [facility] Comment on above: Result Comment: <100 mg/dl OPTIMAL 100 - 129 mg/dl NEAR OR ABOVE OPTIMAL 130 - 159 mg/dl BORDERLINE HIGH 160 - 189 mg/dl HIGH >190 mg/dl VERY HIGH Performed By: #### T SH, LIPID, CMP #### [facility] [address] [address] [address] Deisi Bush Triglyceride [Mass/Vol] 62 mg/dL Normal <=150 [facility] Comment on above: Performed By: #### T SERGIO, LIPID, CMP #### [facility] [address] [address] [address] Deisi Bush VLDL CALC 12.4 mg/dL Normal [facility] Comment on above: Performed By: #### T SERGIO, LIPID, CMP #### [facility] [address] [place] [address] Dr. Deisi Bush PROF 14(COMP METB)on 022 Albumin [Mass/Vol] 3.4 g/dL Normal 3.4-5.0 [facility] Comment on above: Performed By: #### T SERGIO, LIPID, CMP #### [facility] [address] [place] [address] Dr. Deisi Bush Albumin/Globulin [Mass ratio] 0.9 {ratio} Normal [facility] Comment on above: Performed By: #### T SERGIO, LIPID, CMP #### [facility] [address] [place] [address] Dr. Deisi Bush ALP [Catalytic activity/Vol] 73 U/L Normal 46-116 [facility] Comment on above: Performed By: #### T SERGIO, LIPID, CMP #### [facility] [address] [place] [address] Dr. Deisi Bush ALT [Catalytic activity/Vol] 27 U/L Normal 16-63 [facility] Comment on above: Performed By: #### T SERGIO, LIPID, CMP #### [facility] [address] [place] [address] Dr. Deisi Bush Anion gap [Moles/Vol] 11.6 mmol/L Normal [facility] Comment on above: Performed By: #### T SH, LIPID, CMP #### [facility] [address] [place] [address] Dr. Deisi Bush AST [Catalytic activity/Vol] 22 U/L Normal 15-37 [facility] Comment on above: Performed By: #### T SH, LIPID, CMP #### [facility] [address] [address] [address] Deisi Bush Bilirubin [Mass/Vol] 1.1 mg/dL Critically high 0.2-1.0 [facility] Comment on above: Performed By: #### T SH, LIPID, CMP #### [facility] [address] [place] [address] Dr. Deisi Bush Calcium [Mass/Vol] 8.7 mg/dL Normal 8.5-10.1 [facility] Comment on above: Performed By: #### T SH, LIPID, CMP #### [facility] [address] [place] [address] Dr. Deisi Bush Chloride [Moles/Vol] 105 mmol/L Normal 98-107 [facility] Comment on above: Performed By: #### T SH, LIPID, CMP #### [facility] [address] [place] [address] Dr. Deisi Bush CO2 [Moles/Vol] 27.6 mmol/L Normal 21.0-32.0 [facility] Comment on above: Performed By: #### T SH, LIPID, CMP #### [facility] [address] [place] [address] Dr. Deisi Bush Creatinine [Mass/Vol] 0.90 mg/dL Normal 0.70-1.30 [facility] Comment on above: Performed By: #### T SH, LIPID, CMP #### [facility] [address] [place] [address] Dr. Deisi Bush EGFR-AF PUERTO RICAN >60 Normal >=60 [facility] Comment on above: Performed By: #### T SH, LIPID, CMP #### [facility] [address] [place] [address] Dr. Deisi Bush EGFR-NON AF PUERTO RICAN >60 Normal >=60 [facility] Comment on above: Performed By: #### T SH, LIPID, CMP #### [facility] [address] [place] [address] Dr. Deisi Bush Globulin (S) [Mass/Vol] 3.6 g/dL Normal [facility] Comment on above: Performed By: #### T SH, LIPID, CMP #### [facility] [address] [address] [address] Deisi Bush Glucose [Mass/Vol] 96 mg/dL Normal 74-106 [facility] Comment on above: Performed By: #### T SH, LIPID, CMP #### [facility] [address] [address] [address] Deisi Bush Potassium [Moles/Vol] 4.2 mmol/L Normal 3.5-5.1 [facility] Comment on above: Performed By: #### T SH, LIPID, CMP #### [facility] [address] [address] [address] Deisi Bush Protein [Mass/Vol] 7.0 g/dL Normal 6.4-8.2 [facility] Comment on above: Performed By: #### T SH, LIPID, CMP #### [facility] [address] [address] [address] Deisi Bush Sodium [Moles/Vol] 140 mmol/L Normal 136-145 [facility] Comment on above: Performed By: #### T SH, LIPID, CMP #### [facility] [address] [address] [address] Deisi Bush Urea nitrogen [Mass/Vol] 16.0 mg/dL Normal 7.0-18.0 [facility] Comment on above: Performed By: #### T SH, LIPID, CMP #### [facility] [address] [address] [address] Deisi Bush Urea nitrogen/Creatinine [Mass ratio] 17.8 mg/mg Normal [facility] Comment on above: Performed By: #### T SH, LIPID, CMP #### [facility] [address] [address] [address] Deisi Bush TSHon 03-04-2022 TSH 1.259 uIU/mL Normal 0.358-3.740 [facility] Comment on above: Performed By: #### T SH, LIPID, CMP #### [facility] [address] [place] [address] Dr. Deisi Bush TSH RANGE SEE BELOW Normal [facility] Comment on above: Result Comment: <0.3 4 UIU/ml HYPERTHYROID 0.34-5.60 UIU/ml EUTHYROID >5.60 UIU/ml HYPOTHYROID Performed By: #### T SH, LIPID, CMP #### [facility] [address] [address] [address] Deisi Bush Lipid Panelon 09-21-2021 Cholesterol [Mass/Vol] 181 mg/dL Normal 125-200 No rthern [facility] Comment on above: Result Comment: Low risk < 200mg/dL Borderline risk 201-239 mg/dl High risk > or equal to 240 Performed By: #### L IPD #### [facility] [address], [place] [id number] Cholesterol in HDL [Mass/Vol] 41 mg/dL Normal >40 [facility] Comment on above: Result Comment: High Cardiovascular Risk HDL <40 mg/dL Low Cardiovascular Risk HDL > or equal to 60 mg/dl Performed By: #### L IPD #### [facility] [address], [place] [id number] Cholesterol in LDL [Mass/Vol] 126 mg/dL Normal [facility] Comment on above: Result Comment: LDL ATP III CLASSIFICATION LDL less than 100 mg/dl Optimal LDL 100-129 mg/dl Near or above optimal LDL 130-159 Borderline high LDL 160-189 High LDL greater than 189 mg/dl Very High Performed By: #### L IPD #### [facility] [address], [place] [id number] Cholesterol in VLDL [Mass/Vol] 14 mg/dL Normal [facility] Comment on above: Performed By: #### L IPD #### [facility] [address], [place] [id number] Cholesterol.total/Chol esterol in HDL [Mass ratio] 4 {ratio} Normal [facility] Comment on above: Performed By: #### L IPD #### [facility] [address], [place] [id number] Triglyceride [Mass/Vol] 72 mg/dL Normal 30-150 [facility] Comment on above: Result Comment: TRIG ATPIII CLASSIFICATIONS TRIG less than 150 mg/dl Normal TRIG 150-199 mg/dl Borderline High TRIG 200-500 mg/dl High TRIG greather than 500 mg/dl Very High Performed By: #### L IPD #### [facility] [address], [place] [id number] PSA SCREEN (MEDICARE)on 08-25 TPSA 3.110 ng/mL Normal <4.000 [facility] [employer] Comment on above: Result Comment: PSA Test Method: ECLIA/Saw e 601 Performed By: #### P SA MC #### [facility] [address], [place] [id number] Vital Signs Date Time Vital Sign Value Performing Clinician Facility 04-10-2024 09:29-0400 Body mass index (BMI) [Ratio] 27.77 kg/m2 NA Maury EDWARDS Work Phone: [facility] 04-10-2024 09:29-0400 Body temperature 97.39 [degF] KENDRICK Mendiola MD Work Phone: [facility] 04-10-2024 09:29-0400 Body weight 85.3 kg KENDRICK Mendiola MD Work Phone: [facility] 04-10-2024 09:29-0400 Diastolic blood pressure 78 mm[Hg] KENDRICK Mendiola MD Work Phone: [facility] 04-10-2024 09:29-0400 Heart rate 71 /min KENDRICK Mendiola MD Work Phone: [facility] 04-10-2024 09:29-0400 Respiratory rate 18 /min KENDRICK Mendiola MD Work Phone: [facility] 04-10-2024 09:29-0400 SaO2% (BldA) [Mass fraction] 96 % KENDRICK Mendiola MD Work Phone: [facility] 04-10-2024 09:29-0400 Systolic blood pressure 152 mm[Hg] KENDRICK Mendiola MD Work Phone: [facility] 12-28-2023 08:06-0400 Blood Pressure Location Abran OCHOA [facility] 12-28-2023 08:06-0400 Diastolic blood pressure 87 mm[Hg] Abran OCHOA [facility] 12-28-2023 08:06-0400 Heart rate 51 /min Abranvalentin OCHOA [facility] 12-28-2023 08:06-0400 Respiratory rate 16 /min Baranvalentin OCHOA [facility] 12-28-2023 08:06-0400 Systolic blood pressure 131 mm[Hg] Abran OCHOA [facility] 12-19-2023 09:30-0400 Diastolic blood pressure 89 mm[Hg] II Martir Herbert Work Phone: [facility] 12-19-2023 09:30-0400 Heart rate 51 /min II Martir Herbert Work Phone: [facility] 12-19-2023 09:30-0400 Respiratory rate 16 /min II Martir Herbert Work Phone: [facility] 12-19-2023 09:30-0400 SaO2% (BldA) [Mass fraction] 97 % II Martir Herbert Work Phone: [facility] 12-19-2023 09:30-0400 Systolic blood pressure 165 mm[Hg] II Martir Herbert Work Phone: [facility] 12-19-2023 07:04-0400 Body height 175.26 cm II Martir Herbert Work Phone: [facility] 12-19-2023 07:04-0400 Body mass index (BMI) [Ratio] 28.8 kg/m2 II Martir Herbert Work Phone: [facility] 12-19-2023 07:04-0400 Body weight 88.45 kg II Martir Herbert Work Phone: [facility] 12-19-2023 06:22-0400 Body temperature 97.6 [degF] II Martir Herbert Work Phone: [facility] 12-18-2023 11:59-0400 Body height 175.26 cm [facility] 12-18-2023 11:59-0400 Body mass index (BMI) [Ratio] 26.6 kg/m2 [facility] 12-18-2023 11:59-0400 Body temperature 97.6 [degF] [facility] 12-18-2023 11:59-0400 Body weight 81.64 kg [facility] 12-18-2023 11:59-0400 Diastolic blood pressure 72 mm[Hg] [facility] 12-18-2023 11:59-0400 Heart rate 62 /min [facility] 12-18-2023 11:59-0400 Respiratory rate 16 /min [facility] 12-18-2023 11:59-0400 SaO2% (BldA) [Mass fraction] 98 % [facility] 12-18-2023 11:59-0400 Systolic blood pressure 120 mm[Hg] [facility] 10-08-2023 09:53-0500 Blood Pressure Location Abran OCHOA [facility] 10-08-2023 09:53-0500 Diastolic blood pressure 74 mm[Hg] Abran OCHOA [facility] 10-08-2023 09:53-0500 Heart rate 72 /min Abran OCHOA [facility] 10-08-2023 09:53-0500 Respiratory rate 16 /min Abran OCHOA [facility] 10-08-2023 09:53-0500 Systolic blood pressure 130 mm[Hg] Abran OCHOA [facility] 05-29-2023 09:10-0400 Diastolic blood pressure 67 mm[Hg] II Martir Herbert Work Phone: [facility] 05-29-2023 09:10-0400 Heart rate 51 /min II Martir Herbert Work Phone: [facility] 05-29-2023 09:10-0400 Respiratory rate 16 /min II Martir Herbert Work Phone: [facility] 05-29-2023 09:10-0400 SaO2% (BldA) [Mass fraction] 96 % II Martir Herbert Work Phone: [facility] 05-29-2023 09:10-0400 Systolic blood pressure 131 mm[Hg] II Martir Herbert Work Phone: [facility] 05-29-2023 07:30-0400 Body height 175.26 cm II Martir Herbert Work Phone: [facility] 05-29-2023 07:30-0400 Body temperature 98 [degF] II Martir Herbert Work Phone: [facility] 05-29-2023 07:30-0400 Body weight 81.64 kg II Martir Herbert Work Phone: [facility] 02-05-2023 08:47-0400 Diastolic blood pressure 80 mm[Hg] Abran OCHOA [facility] 02-05-2023 08:47-0400 Mean blood pressure 103 mm[Hg] Abran OCHOA [facility] 02-05-2023 08:47-0400 Systolic blood pressure 150 mm[Hg] Abran OCHOA [facility] 02-05-2023 08:42-0400 Blood Pressure Location Abran OCHOA [facility] 02-05-2023 08:42-0400 Diastolic blood pressure 80 mm[Hg] Abran OCHOA [facility] 02-05-2023 08:42-0400 Heart rate 53 /min Abran OCHOA [facility] 02-05-2023 08:42-0400 Systolic blood pressure 154 mm[Hg] Abran OCHOA [facility] 12-19-2022 06:51-0400 Body height 177.8 cm II Martir Herbert Work Phone: [facility] 12-19-2022 06:51-0400 Body weight 81.64 kg II Martir Herbert Work Phone: [facility] 12-04-2022 12:26-0400 Blood Pressure Location Abran OCHOA [facility] 12-04-2022 12:26-0400 Diastolic blood pressure 70 mm[Hg] Abran OCHOA [facility] 12-04-2022 12:26-0400 Heart rate 64 /min Abran OCHOA [facility] 12-04-2022 12:26-0400 Systolic blood pressure 149 mm[Hg] Abran OCHOA [facility] Encounters Encounter Date Encounter Type Care Provider Facility Start: 07-04-2024 ambulatory Abran Hernandezi ty:[facility] [place] Start: 04-10-2024 End: 04-10-2024 Patient encounter procedure G Chirag Mendiola MD Work Phone: Radiation Oncology Comment on above: Malignant neoplasm o f prostate (HCC) (Primary Dx) Start: 04-10-2024 End: 04-10-2024 ambulatory MARTIR HERBERT II Facility:[facility] Start: 03-26-2024 End: 03-26-2024 ambulatory MARTIR HERBERT Not Available Start: 12-28-2023 End: 12-29-2023 ambulatory Abran OCHOA Facility:[facility] Start: 12-28-2023 End: 12-28-2023 Patient encounter procedure Abran OCHOA [facility] [place] Start: 12-20-2023 End: 12-20-2023 ambulatory MARTIR HERBERT Not Available Start: 12-19-2023 Non-patient / Non-visit II Domenic terry Herbert Work Phone: [facility] V[facility] Work Phone: Start: 12-19-2023 End: 12-19-2023 ambulatory Armani Kelly Facility:[facility] Start: 12-19-2023 End: 12-19-2023 Admission to same day surgery center II Martir Herbert Work Phone: [facility] [place] Start: 12-19-2023 End: 12-19-2023 ambulatory II Martir Herbert Work Phone: [facility] Work Phone: Start: 12-18-2023 End: 12-18-2023 ambulatory [facility] Work Phone: Start: 12-18-2023 End: 12-18-2023 Patient encounter procedure [facility] V[facility] Surgery Work Phone: Start: 12-06-2023 End: 12-06-2023 ambulatory MARTIR HERBERT Not Available Start: 11-14-2023 End: 11-14-2023 ambulatory MARTIR HERBERT Not Available Start: 10-11-2023 End: 10-11-2023 ambulatory MARTIR HERBERT II Facility:[facility] Start: 10-08-2023 End: 10-09-2023 ambulatory [place]CHOA [place] [place] Start: 10-08-2023 End: 10-08-2023 Patient encounter procedure Abran OCHOA [facility] [place] Start: 10-03-2023 End: 10-03-2023 ambulatory MARTIR HERBERT II Facility:[facility] Start: 10-03-2023 End: 10-03-2023 Subsequent hospital visit by physician Pet Ct Scan Yunier Lewis Work Phone: Radiology [facility] Start: 09-21-2023 End: 09-22-2023 ambulatory Abran OCHOA Facility:[facility] Start: 09-21-2023 End: 09-21-2023 Patient encounter procedure Abran OCHOA [facility] Start: 09-19-2023 End: 09-19-2023 ambulatory MARTIR HERBERT II Facility:[facility] Start: 09-12-2023 End: 09-13-2023 ambulatory Abran OCHOA Facility:[facility] Start: 09-12-2023 End: 09-12-2023 Patient encounter procedure Abran OCHOA [facility] Start: 09-06-2023 End: 09-07-2023 ambulatory Abran OCHOA Facility:[id number] Start: 09-06-2023 End: 09-06-2023 Patient encounter procedure Jc Mendiola MD Work Phone: Radiation Oncology Comment on above: Malignant neoplasm o f prostate (HCC) (Primary Dx) Start: 08-08-2023 ambulatory Abran OCHOA Facili ty:[facility] Start: 07-25-2023 Patient encounter procedure [facility] Provider [facility] Department Start: 07-24-2023 Telephone encounter Jc Mendiola MD Work Phone: Radiation Oncology Comment on above: Appointment Start: 07-11-2023 Patient encounter procedure Jc Mendiola MD Work Phone: [facility] Start: 07-11-2023 Radiation Oncology Note G Walter Mendiola MD Work Phone: Radiation Oncology Comment on above: Simulation Note Start: 07-11-2023 End: 07-11-2023 ambulatory MARTIR HERBERT II Facility:[facility] Start: 05-29-2023 End: 05-29-2023 ambulatory Martir Herbert Facility:[facility] Start: 05-29-2023 End: 05-29-2023 Admission to same day surgery center II Martir Herbert Work Phone: [facility] Work Phone: Start: 05-29-2023 End: 05-29-2023 ambulatory II Martir Herbert Work Phone: [facility] Work Phone: Start: 05-23-2023 Patient encounter procedure [facility] Provider [facility] Start: 05-02-2023 Telephone encounter G Chirag Mendiola MD Work Phone: Radiation Oncology Comment on above: Constipation; Rectal Bleeding; Future Appointment Start: 02-21-2023 Patient encounter procedure [facility] Provider [facility] Start: 02-05-2023 End: 02-06-2023 ambulatory Abran OCHOA Facility:[facility] Start: 02-05-2023 End: 02-05-2023 Patient encounter procedure Abran OCHOA [facility] Start: 01-16-2023 End: 01-16-2023 Patient encounter procedure Abran OCHOA [facility] Start: 12-19-2022 End: 12-19-2022 ambulatory II Martir Herbert Work Phone: [facility] Work Phone: Start: 12-19-2022 End: 12-19-2022 Patient encounter procedure II Martir Herbert Work Phone: [facility] [place] Work Phone: Start: 12-04-2022 End: 12-04-2022 Patient encounter procedure Abran OCHOA [facility] Start: 10-17-2022 End: 10-18-[address] ABRAN OCHOA Facility:[facility] Start: 09-22-2022 End: 09-22-2022 Patient encounter procedure Abran OCHOA [facility] Start: 03-04-2022 End: 03-05-[address] MARTIR HERBERT Facility:[facility] Procedures Date Procedure Procedure Detail Performing Clinician Start: 12-24-2023 PSA screening [facility] Provi jihan Start: 12-19-2023 Biopsy of temporal artery II Martir Keon Work Phone: Start: 09-06-2023 Brachytherapy - acti [...] f prostate using ultrasound guidance Abran LADAN Esophageal hiatus he rnia repair Abran OCHOA Hemorrhoidectomy Abran BRUSH Structure of anterio r temporal artery (body structure) Abran OCHOA Plan of Treatment Date Care Activity Detail Author Start: 09-19-2031 Urine microalbumin profile DTaP,Tdap,Td Vaccine (2 - Td or Tdap) [facility] Start: 04-09-2025 End: 04-09-2025 Patient encounter procedure 04/09/2025 9:00 AM EDT Office Visit Radiation Oncology [address] [place] [address] Jc Mendiola MD [address] [place] [address] Followup Radiation Oncology Comment on above: Followup Start: 05-25-2024 Covid-19 Vaccine ( season) Covid-19 Vaccine () [facility] Start: 05-25-2024 Influenza vaccination Influenza Vacc ine (#1) [facility] Start: 12-19-2023 [facility] Start: 12-19-2023 [facility] Start: 11-29-2023 Covid-19 Vaccine () Covid-19 Vaccine () [facility] Start: 09-24-2023 Advance Directive Discussion Advance Directive Discussion [facility] Start: 09-24-2023 Behavioral Health Screening Behavioral Health Screening [facility] Start: 05-29-2023 [facility] Start: 05-25-2023 Covid-19 Vaccine (5 - 2023-24 season) Covid-19 Vaccine ( season) [facility] Start: 05-25-2023 Influenza vaccination [facility] Start: 12-11-2022 COVID-19 VACCINE (5 - Pfizer series) COVID-19 VACCINE (5 - Pfizer series) [facility] Start: 09-24-2022 ADVANCE DIRECTIVE DISCUSSION ADVANCE DIRECTIVE DISCUSSION [facility] Start: 09-24-2022 DEPRESSION ASSESSMENT DEPRESSION ASS ESSMENT [facility] Start: 2006 PNEUMOCOCCAL: 65+ (1 - PCV) PNEUMOCOCCAL: 65+ (1 - PCV) [facility] Start: 2001 RSV Vaccine (1 - 1-d ose 60+ series) RSV Vaccine (1 - 1-dose 60+ series) [facility] Start: 11-24-1991 SHINGRIX VACCINE (1 of 2) SHINGRIX VACCINE (1 of 2) [facility] Start: 1986 DIABETES SCREEN DIABETES SCREEN [facility] Start: 1986 Diabetes Screening Diabetes Screenin g [facility] Start: 1960 Urine microalbumin profile DTAP,TDAP,TD (1 - Tdap) [facility] Start: 11-24-1959 Anxiety Screening Anxiety Screening [facility] Start: 11-24-1959 Depression Screening Depression Scre ening [facility] Patient referral [facility] Work Phone: [facility] Immunizations Immunization Date Immunization Notes Care Provider Alvin cilifozia 07-31-2023 COVID-19 (PFIZER) 12Y and older II Martir Herbert Work Phone: [facility] 07-31-2023 influenza virus vaccine, unspecified formulation Abran OCHOA [facility] 08-13-2022 influenza virus vaccine, unspecified formulation Abran OCHOA [facility] 08-13-2022 SARS-CoV-2 (COVID-19 ) [id number] Abran OCHOA [facility] 12-18-2021 zoster vaccine recombinant Abran OCHOA [facility] 09-21-2021 zoster vaccine recombinant Abran OCHOA [facility] 09-19-2021 tetanus toxoid, redu lester diphtheria toxoid, and acellular pertussis vaccine, adsorbed Abran OCHOA [facility] 08-25-2021 influenza virus vaccine, unspecified formulation Abranvalentin OCHOA [facility] 06-25-2021 influenza virus vaccine, unspecified formulation Abranvalentin OCHOA [facility] 06-25-2021 SARS-CoV-2 (COVID-19 ) mRNA BNT-162b2 vax Abranvalentin OCHOA [facility] Comment on above: Result Comment: 2022: [id number] 11-14-2020 SARS-CoV-2 (COVID-19 ) mRNA BNT-162b2 vax Abranvalentin OCHOA [facility] Comment on above: Result Comment: 2022: [id number] 10-24-2020 SARS-CoV-2 (COVID-19 ) mRNA BNT-162b2 vax Abranvalentin OCHOA [facility] Comment on above: Result Comment: 2022: [id number] 06-28-2020 influenza virus vaccine, unspecified formulation Abran OCHOA [facility] 07-02-2019 influenza virus vaccine, unspecified formulation Abran OCHOA [facility] 07-02-2019 pneumococcal conjuga te vaccine, 13 valent Abran OCHOA [facility] 06-29-2018 influenza virus vaccine, unspecified formulation Abran OCHOA [facility] 06-21-2017 influenza virus vaccine, unspecified formulation Abran OCHOA [facility] 08-18-2015 influenza virus vaccine, unspecified formulation Abran OCHOA [facility] 06-23-2014 influenza virus vaccine, unspecified formulation Abran OCHOA [facility] 07-01-2013 influenza virus vaccine, unspecified formulation Abran OCHOA [facility] 07-01-2013 zoster vaccine, live Abran OCHOA [facility] Payers Date Payer Category Payer Self-pay 2022 Private Health Insurance [facility] [employer] [id number] 2022-Present [phone] [address] [place] [address] Indemnity [id number] 2006 Medicare [id number] 1959 Medicare [id number] 1959 Private Health Insurance [id number] 1941 Unknown [id number] [id number]. 2.593 1941 Unknown [id number] 2.16.840.1.990007.3.579. 2.593 1941 Unknown [id number] 2.16.840.1.058245.3.579. 2.727 1941 Unknown [id number] 2.16.840.1.154546.3.579. 2.727 1941 Unknown [id number] 2.16.840.1.336470.3.579. 2.727 1941 Unknown [id number] 2.16.840.1.980343.3.579. 2.727 1941 Unknown [id number] 2.16.840.1.887667.3.579. 2.727 1941 Unknown [id number] 2.16.840.1.754064.3.579. 2.727 1941 Unknown [id number] 2.16.840.1.870672.3.579. 2.727 1941 Unknown [id number] 2.16.840.1.553538.3.579. 2.727 1941 Unknown [id number] 2.16.840.1.902928.3.579. 2.1259 1941 Unknown [id number] 2.16.840.1.250435.3.579. 2.1259 1941 Unknown [id number] 2.16.840.1.407533.3.579. 2.1259 1941 Unknown [id number] 2.16.840.1.295312.3.579. 2.1259 Unknown Insurance No Card [id number] Unknown [id number] 2.16.840.1.550982.3.579. 2.531 Unknown [id number] 2.16.840.1.584212.3.579. 2.531 Social History Date Type Detail Facility Start: 09-01-2020 End: 02-16-2023 Tobacco smoking status Never smoked tobacco (finding) [facility] Tobacco smoking status Never [facility] Start: 02-16-2023 End: 09-06-2023 Sex Assigned At Male [facility] Start: 1940 Sex Assigned At Male [facility] Start: 02-16-2023 Tobacco use and exposure Smokeless tobacco non-user [facility] Start: 02-16-2023 End: 09-19-2023 Alcohol intake Ex-drinker (finding) [facility] Start: 1940 Sex Assigned At Not on file C [facility] Start: 02-16-2023 End: 09-06-2023 History of Social function [facility] Goals Date Patient Goal Desired Activity /State Functional Status Date Assessment Result Facility 12-28-2023 Functional Status N/A [facility] 10-08-2023 Functional Status N/A [facility] 02-05-2023 Functional Status N/A [facility] 12-04-2022 Functional Status N/A [facility] Clinical Notes 02-23-2022 to 04-10-2024 Jc Mendiola [...] DIAGNOSIS: Prostate adenocarcinoma, initial PSA 3.1, biopsy Martelle score 3 + 4 = 7 (grade [...] Mendiola MD cc: Martir Herbert II, MD [address] [place] [address] Dr. Ochoa documented in this encounter [facility] 04-10-2024 Note HNO ID: [id number] Author: Jc MENDIOLA MD Service: ? Author [...] Mendiola MD cc: Martir Herbert II, MD [address] [place] [address] Dr. Ochoa [facility] 04-10-2024 Nurse Note AUA 4 Nichelle Elkins RN [facility] 04-10-2024 Nurse Note AUMg 4 Nichelle Elkins RN documented in this encounter [facility] 12-28-2023 Hospital Discharge instructions Patient Education 12/28/2023 [...] urethra. Follow these instructions at home: Take tqky-ptz-wcnuhzu and prescription medicines only as told by [...] provider. Document Revised: 03/29/2022 Document Reviewed: 03/29/2022 [employer] Patient Education 2022 [employer]. Follow Up Care 12/04/2022 12:55:53 With:LADAN EDWARDS, Abran Darling, URL Address: [address] [place] [address]- When: Unknown [facility] 10-11-2023 Note HNO ID: [id number] Author: Jc MENDIOLA MD Service: ? Author Type: Physician Type: Progress Notes Filed: 10/11/2023 09:38 Note Text: Radiation Oncology - Follow Up Note PATIENT NAME: Jose Can PATIENT DIAGNOSIS: Prostate adenocarcinoma, initial PSA 3.1, biopsy Martelle score 3 + 4 = 7 (grade [...] ASSESSMENT/PLAN: Prostate adenocarcinoma, initial PSA 3.1, biopsy Martelle score 3 + 4 = 7 (grade [...] Mendiola MD cc: Martir Herbert II, MD [address] [place] [address] Dr. Ochoa [facility] 10-08-2023 Hospital Discharge instructions Patient [...] treat constipation, you may need to: Take flxx-xuz-npzqblh or prescription medicines. Eat foods that are high in fiber, such as beans, whole grains, and fresh fruits and vegetables. Limit foods that are high in fat and processed sugars, such as fried or sweet foods. General instructions Take cjrc-nvh-mpphfxx and prescription medicines only as told by [...] provider. Document Revised: 12/07/2021 Document Reviewed: 12/07/2021 [employer] Patient Education 2022 [employer]. Follow Up Care 06/26/2023 12:00:57 With:LADAN EDWARDS, Abran Darling, URL Address: [facility] [address], [place] [address]- [phone] When: Unknown Comments:3 mos w/ PSA [facility] 10-03-2023 Note HNO ID: [id number] Author: Jc MENDIOLA MD Service: ? Author Type: Physician Type: Progress Notes Filed: 10/12/2023 11:35 Note Text: Patient: Jose Can Date:10/03/2023 [facility] Department of Radiation Oncology [facility] RADIATION ONCOLOGY POST SEED IMPLANT SIMULATION NOTE [...] Electronically Signed CHIRAG MENDIOLA M.D. 1:35 AM [facility] 09-19-2023 Note HNO ID: [id number] Author: Jc Mendiola MD Service: ? Author Type: Physician Type: Progress Notes Filed: 09/19/2023 4:02 PM Note Text: Radiation Oncology - Follow Up Note PATIENT NAME: Jose Can PATIENT DIAGNOSIS: Prostate adenocarcinoma, initial PSA 3.1, biopsy Martelle score 3 + 4 = 7 (grade [...] ASSESSMENT/PLAN: Prostate adenocarcinoma, initial PSA 3.1, biopsy Martelle score 3 + 4 = 7 (grade [...] Mendiola MD cc: Martir Herbert II, MD [address] [place] [address] No referring provider defined for this encounter. [facility] 09-06-2023 Note HNO ID: [id number] Author: Jc Mendiola MD Service: ? Author Type: Physician Type: Progress Notes Filed: 09/06/2023 3:18 PM Note Text: Date: 09/06/23 Facility: [facility] Procedure: prostate transperineal brachytherapy implant Diagnosis: Prostate [...] activity seen, results documented. Edilma Mendiola MD [facility] 09-06-2023 History of Present illness Narrative Date: 09/06/23 Facility: [facility] Procedure: prostate transperineal brachytherapy implant Diagnosis: Prostate [...] activity seen, results documented. Edilma Mendiola MD [facility] documented in this encounter [facility] 08-25-2023 Note HNO ID: [id number] Author: Jc Mendiola MD Service: ? Author Type: Physician Type: Progress Notes Filed: 09/06/2023 12:36 AM Note Text: JOSE CAN [id number] 08/25/2023 [facility] Department of Radiation Oncology [facility] RADIATION ONCOLOGY BRACHYTHERAPY TREATMENT PLANNING NOTE For [...] Chirag Mendiola M.D. / NATY 33:42 PM [facility] 07-25-2023 Miscellaneous Notes jai Robison's dtr, returned my call and [...] Debra Quinn RN documented in this encounter [facility] 07-12-2023 Note HNO ID: [id number] Author: Jc Mendiola MD Service: ? Author [...] Visit completed when applicable. Jc Mendiola MD [facility] 07-11-2023 History of Present illness Narrative [facility] [id number] 07/11/2023 [facility] Department of Radiation Oncology [facility] RADIATION ONCOLOGY SIMULATION NOTE DATE OF SIMULATION: 07/11/2023 MACHINE: [employer] Interactive 500 Diagnosis: 185 (Prostate Gland) AREA:Prostate PATIENT POSITION: Supine CONTRAST: None PROTOCOL: None CONCURRENT THERAPY: None FIXATION DEVICE: UTS Stabilization device by [email or web address]. PROCEDURE: Patient was simulated in exaggerated dorsal lithotomy position. Serial images of the prostate were acquired using TRUS and reconstructed in 3D space. These images were imported into [employer] Prostate planning system where a plan was generated. ASSESSMENT/PLAN: Patient tolerated simulation procedure well. Electronically Signed Chirag Mendiola M.D. / NATY 35:19 PM documented in this encounter [facility] 07-11-2023 Note HNO ID: [id number] Author: Jc Mendiola MD Service: ? Author Type: Physician Type: Progress Notes Filed: 07/12/2023 12:35 AM Note Text: PAMELLA JOSE [id number] 07/11/2023 [facility] Department of Radiation Oncology [facility] RADIATION ONCOLOGY SIMULATION NOTE DATE OF SIMULATION: 07/11/2023 MACHINE: [employer] Focus 500 Diagnosis: 185 (Prostate Gland) AREA:Prostate PATIENT POSITION: Supine CONTRAST: None PROTOCOL: None CONCURRENT THERAPY: None FIXATION DEVICE: UTS Stabilization device by [email or web address]. PROCEDURE: Patient was simulated in exaggerated dorsal lithotomy position. Serial images of the prostate were acquired using TRUS and reconstructed in 3D space. These images were imported into [employer] Prostate planning system where a plan was generated. ASSESSMENT/PLAN: Patient tolerated simulation procedure well. Electronically Signed Chirag Mendiola M.D. / NATY 35:19 PM [facility] 05-29-2023 Procedure note [facility] 05-03-2023 Miscellaneous Notes Patients daughter called back [...] colonoscopy was done per Dr Franco at [facility] in 2016. It was normal. Dr Mendiola-- please advise. Nichelle Elkins RN documented in this encounter [facility] 02-05-2023 Hospital Discharge instructions Patient Education [...] the likelihood that the cancer will spread. Martelle 6 or lower: This indicates that the cancer cells look similar to normal prostate cells (well differentiated). Martelle 7: This indicates that the cancer cells [...] stress of having cancer. General instructions Take zyzi-usu-cqqrhiu and prescription medicines only as told by your health care provider. If you have to go to the hospital, notify your cancer specialist (oncologist). Keep all follow-up visits. This is important. Where to find more information [place] [employer]: www.cancer.org [place] [employer] Clinical Oncology: www.cancer.net National Cancer [place]: www.cancer.gov Contact a health care provider if: [...] provider. Document Revised: 12/07/2021 Document Reviewed: 12/07/2021 [employer] Patient Education 2022 [employer]. Follow Up Care 01/04/2023 12:26:51 With:LADAN EDWARDS, Abran Darling, URL Address: [facility] [address] [place] [phone] When:Within 6 Month(s) Comments:Will refer to Dr. Mendiola [facility] 01-16-2023 Hospital Discharge instructions Patient Education 01/16/2023 [...] for your post-operative appointment in 1-2 weeks [phone] or [phone] Follow Up Care 01/04/2023 11:45:40 With:Abran OCHOA Address: [facility] [address] [place] [address]- [facility] (1) When: Unknown Comments:Keep scheduled appointment [facility] 12-04-2022 Hospital Discharge instructions Patient Education 12/04/2022 [...] urethra. Follow these instructions at home: Take fzhy-vip-qbrxzba and prescription medicines only as told by [...] 09/10/2006 Document Revised: 08/05/2019 Document Reviewed: 10/15/2017 [employer] Patient Education [employer]. Follow Up Care 09/22/2022 08:10:59 With:Abran OCHOA MD, URL Address: [facility] [address], [place] [address]- When: Unknown [facility] 02-23-2022 Hospital Discharge instructions Follow Up Care 02/23/2022 13:31:33 With:Abran OCHOA MD, URL Address: [address] [place] [address]- When: Unknown [facility] Evaluation + Plan note Future Appointments Appointment Date:12/04/2022 12:15:00 PM Scheduled Provider:Abran OCHOA MD Location:[facility] Appointment Type:URO Office Visit [facility] Evaluation + Plan note Future Appointments Appointment Date:12/07/2023 08:00:00 AM Scheduled Provider:Abran OCHOA MD Location:[facility] Appointment Type:URO Office Visit [facility] Evaluation + Plan note Future Appointments Appointment Date:02/05/2023 08:30:00 AM Scheduled Provider:Abran OCHOA MD Location:[facility] Appointment Type:URO Office Visit Appointment Date:12/07/2023 08:00:00 AM Scheduled Provider:Abran OCHOA MD [facility] Appoint[facility] Type:URO Office Visit Diagnostic Tests PendingProstate Histology ([facility]) 01/16/23 [facility] Evaluation + Plan note Future Appointments Appointment Date:12/07/2023 08:00:00 AM Scheduled Provider:Abran OCHOA MD [facility] Appointment Type:URO Office Visit Diagnostic Tests PendingPSA Total 02/05/23 [facility] Evaluation + Plan note Future Appointments Appointment Date:10/08/2023 09:30:00 AM Scheduled Provider:Abran OCHOA MD [facility] Appointment Type:URO Office Visit Appointment Date:12/07/2023 08:00:00 AM Scheduled Provider:Abran OCHOA MD [facility] Appointment Type:URO Office Visit [facility] Evaluation + Plan note Future Appointments Appointment Date:12/28/2023 08:00:00 AM Scheduled Provider:Abran OCHOA MD Location[facility] Appointment Type:URO Office Visit Diagnostic Tests PendingPSA Total 10/08/23 [facility] Evaluation + Plan note Future Appointments Appointment Date:07/04/2024 09:15:00 AM Scheduled Provider:Abran OCHOA MD Location:[facility] Appointment Type:URO Office Visit Diagnostic Tests PendingPSA Total 04/24/24 [facility] Evaluation note No assessment inform ation available [facility] Work Phone: Evaluation note Diagnosis Rectal bleeding- Primary Hemorrhage of rectum and anus Constipation, unspecified constipation type Prostate cancer (HCC) Malignant neoplasm of prostate [facility] Diagnosis Malignant neoplasm of prostate (HCC)- Primary Malignant neoplasm of prostate [facility] Diagnosis Onset Date Resolution Status Temporal arteritis acute [facility] Work Phone: Evaluation note* Diagnosis Malignant neoplasm of prostate (HCC)- Primary Malignant neoplasm of prostate [facility] Author Juan Jiang [facility] May 29, 2023 8:21am Note Date/Time May 29, 2023 8:21am [facility] [address] [place] [address] Gastroenterology H&P Signed Patient: Jose Can MR#: [id number] : 1940 Acct:[id number] Age/Sex: 82 / M Adm Date: 3 Loc: Room: Type: [facility] Attending Dr: Juan Jiang MD Copies [...] <Electronically signed by Juan Jiang MD> 05/29/23820 [facility] Work Phone: Hospital course Narrative No data available for this section [facility] Hospital Discharge instructions Additional Instructions DISCHARGE INSTRUCTIONS [...] NOT operate machinery such as power tools, [employer] mowers, [employer], sewing machines, etc. for 24 hours. - [...] years. -Follow up with PCP. -Office number [phone]. [facility] Work Phone: Hospital Discharge instructions No data available for this section [facility] progress note No data available for this section [facility] reason for referral (narrative) , Refer to Dr. Mendiola for [facility] Referred by: LADAN EDWARDS, Abran Darling [facility] Summary Purpose Family History Relationship Condition Age at Onset Recorded Date/T yosi father Unknown Not Specified Unknown Relationship Condition Age at Onset Recorded Date/T yosi father Unknown Heart disease Unknown Not Specified Unknown Malignant neoplasm Unknown Advance Directives Advance Directive Response Recorded Date/ [...] section and content) DATE CREATED AUTHOR 09/22/2021 [facility] Specialist DATE CREATED AUTHOR AUTHOR'S ORGANIZ ATION 10/18/2022 [facility] DATE CREATED AUTHOR AUTHOR'S ORGANIZ ATION 01/29/2024 [facility] DATE CREATED AUTHOR AUTHOR'S ORGANIZ ATION 02/09/2024 [facility] DATE CREATED AUTHOR AUTHOR'S ORGANIZ ATION 03/27/2024 [facility] Specialists EPIC DATE CREATED AUTHOR AUTHOR'S ORGANIZ ATION 04/16/2024 [facility] Patient Care team informatio n (unrecognized section and content) Team Status: Active Member Role Status Dates Martir Herbert II MD Primary Care Provider Active Team Status: Inactive Member Role Status Dates Martir Herbert II MD Primary Care Provider Active Abran Ochoa MD Attending Provider Active Clinical Tech Relationship Specialty Start Date End Date Martir Herbert II [address] [place] [address] PCP - General Internal Medicine 02/06/23 Clinical Tech Relationship Specialty Start Date End Date Martir Herbert II, MD [address] [place] [address] PCP - General Internal Medicine 02/06/23 Team Status: Inactive Member Role Status Dates Martir Herbert II MD Primary Care Provider Active Juan Jiang MD Attending Provider Active Clinical Tech Relationship Specialty Start Date End Date Martir Herbert II, MD [address] [place] [address] PCP - General Internal Medicine 02/06/23 Clinical Tech Relationship Specialty Start Date End Date Martir Herbert II, MD [address] [place] [address] PCP - General Internal Medicine 02/06/23 Clinical Tech Relationship Specialty Start Date End Date Martir Herbert II, MD [address] [place] [address] PCP - General Internal Medicine 02/06/23 Clinical Tech Relationship Specialty Start Date End Date Martir Herbert II, MD [address] [place] [address] PCP - General Internal Medicine 02/06/23 Team [...] Provider Active Start: December 19, 2023 Armani Kelyl MD Attending Provider, Other Provider Active Start: December 19, 2023 Clinical Tech Relationship Specialty Start Date End Date Martir Herbert II, MD [address] [facility] [address] [place] [address] PCP - General Internal Medicine 02/06/23 Goals [...] or prosecute any alcohol or drug abuse patient.[facility] the event this information is protected by the Federal Confidentiality of Alcohol and Drug Abuse Patient Records regulations: The Federal rules restrict any use of the information to criminally investigate or prosecute any alcohol or drug abuse patient.[facility] the event this information is protected by the Federal Confidentiality of Alcohol and Drug Abuse Patient Records regulations: The Federal rules restrict any use of the information to criminally investigate or prosecute any alcohol or drug abuse patient.[facility] the event this information is protected by the Federal Confidentiality of Alcohol and Drug Abuse Patient Records regulations: The Federal rules restrict any use of the information to criminally investigate or prosecute any alcohol or drug abuse patient.[facility] the event this information is protected by the Federal Confidentiality of Alcohol and Drug Abuse Patient Records regulations: The Federal rules restrict any use of the information to criminally investigate or prosecute any alcohol or drug abuse patient.[facility] the event this information is protected by the Federal Confidentiality of Alcohol and Drug Abuse Patient Records regulations: The Federal rules restrict any use of the information to criminally investigate or prosecute any alcohol or drug abuse patient.[facility] the event this information is protected by the Federal Confidentiality of Alcohol and Drug Abuse Patient Records regulations: The Federal rules restrict any use of the information to criminally investigate or prosecute any alcohol or drug abuse patient.[facility] the event this information is protected by the Federal Confidentiality of Alcohol and Drug Abuse Patient Records regulations: The Federal rules restrict any use of the information to criminally investigate or prosecute any alcohol or drug abuse patient.[facility] the event this information is protected by the Federal Confidentiality of Alcohol and Drug Abuse Patient Records regulations: The Federal rules restrict any use of the information to criminally investigate or prosecute any alcohol or drug abuse patient.[facility] Reason for Visit (unrecogniz ed section [...] BE BASED ON THE PRIMARY CLINICAL RECORDS. [facility] provides no warranty or guarantee of the accuracy or completeness of information in this document.
== END 2024-07-01 07:42 | disposition home or self-care (01) ==
LOC: LAB 07:41
PROVIDERS: PCP Internal Medicine; Visit Provider Urology
DX: C61 Malignant neoplasm of prostate (principal)
CPT/HCPCS: 36415; 84153

== ENCOUNTER 2024-07-14 09:14 | Outpatient (OUT) | payer MEDICARE, OTHER, SELFPAY ==
--- OUTSIDE RECORDS SUMMARY | 2024-07-14 09:35 | XMS_ITS | CCD ---
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 Operator Name Role Phone MARTIR HERBERT [...] Attending Provider MANGO Herbert Primary Care Provider [phone] MD Armani Kelly Attending Provider Martir Herbert Primary Care Unavailable Juan Jiang Attending Unavailable Juan Jiang Admitting Unavailable Armani Kelly Attending Unavailable Armani Kelly Admitting Unavailable Martir Herbert Primary Care Unavailable MARTIR HERBERT Attending Unavailable MARTIR HERBERT Attending Unavailable MARTIR HERBERT Attending Unavailable MARTIR HERBERT Attending Unavailable Keon COBIAN MD, Daniel B Primary Care Provider MARTIR HERBERT II Primary Care Unavailable Jc MENDIOLA Attending Unavailable MARTIR HERBERT II Primary Care Unavailable Jc MENDIOLA Attending Unavailable MARTIR HERBERT II Primary Care Unavailable Jc MENDIOLA Attending Unavailable MARTIR HERBERT II Primary Care Unavailable Jc MENDIOLA Attending Unavailable MARTIR HERBERT II Primary Care Unavailable Jc MENDIOLA Attending Unavailable MARTIR HERBERT II Primary Care Unavailable LADAN, Abran R Attending Unavailable OCHOA, Abran R Attending Unavailable OCHOA, Abran R Attending Unavailable OCHOA, Abran R Attending Unavailable OCHOA, Abran R Attending Unavailable OCHOA, Abran R Attending Unavailable OCHOA, Abran R Attending Unavailable OCHOA, Abran R Attending Unavailable Martir Herbert MD Unavailable [phone] Martir Herbert MD Primary Care Provider Allergies Allergy Classification Reported Allergen(s) Allergy Type Date of Onset Reaction(s) Facility (10 sources) Penicillin; Translations: [penicillin] Drug Allergy Unknown (qualifier value) [facility] (10 sources) Sulfonamides; Translations: [sulfonamides] Drug allergy Unknown (qualifier value) [facility] (5 sources) Penicillins; Translations: [PENICILLINS] Drug allergy (disorder) 3 Hives [facility] (1 source) Sulfonamides (Antibiotic) Drug allergy (disorder) 3 [facility] (9 sources) Penicillins Drug Allergy 3 [facility] (13 sources) Sulfonamides (Antibiotic); Translations: [SULFA (SULFONAMIDE ANTIBIOTICS)] Drug Allergy 3 [facility] (1 source) Penicillins Drug allergy (disorder) 4 [facility] (1 source) Sulfonamides (Antibiotic) Drug allergy (disorder) 4 [facility] (1 source) Penicillins Drug Allergy 3 Hives, Rash, Unknown [facility] Medications Current Medications Medication Drug Class(es) Dates Sig (Normalized) Sig (Original) acetaminophen 325 mg / HYDROcodone bitartrate 7.5 mg oral tablet (1 source) Opioid Agonist Start: 01-04-2023 take 1 tablet by mouth once, then take 1 tablet by mouth every hour [place] 325 mg-7.5 mg oral tablet 1 tab(s), Oral, Once, 1 tab(s), Refill(s) 0, Take 1 hour prior to procedure, [facility]/pharmacy #[id number], 175, cm, 03/13/23 12:29:00 EDT, Height/Length Dosing, 89, kg, 12/04/22 12:29:00 EDT, Weight Dosing Start Date: 01/04/23 Status: Ordered aspirin 81 mg delayed release oral tablet (13 sources) Platelet Aggregation Inhibitor, Nonsteroidal Anti-inflammatory Drug Start: 05-29-2023 take 1 tablet by mouth in the morning aspirin 81 MG EC tablet Take 81 mg by mouth in the morning. 05/29/2023 Active Comment on above: Take 81 mg by mouth once daily. calcium citrate 950 mg oral tablet (10 sources) calcium citrate (Calcitrate) 950 (200 Ca) MG tablet Take 200 mg by mouth in the morning. Active calcium citrate (CITRACAL ORAL) Take by mouth. Active calcium citrate (CITRACAL ORAL) Take by mouth. 0 Active Comment on above: Take by mouth. cholecalciferol 0.025 mg oral tablet (1 source) Vitamin D take 1 tablet by mouth in the morning cholecalciferol (Vitamin D-3) 25 MCG (1000 UT) tablet Take 1,000 Units by mouth in the morning. Active cholecalciferol, vitamin D3, (VITAMIN D3 ORAL) (9 sources) cholecalciferol, vitamin D3, (VITAMIN D3 ORAL) Take by mouth. Active cholecalciferol, vitamin D3, (VITAMIN D3 ORAL) Take by mouth. 0 Active Comment on above: Take by mouth. furosemide 20 mg oral tablet (1 source) Loop Diuretic Start: 04-21-2024 take 1 tablet by mouth once daily as needed for edema furosemide (Lasix) 20 MG tablet Indications: Localized edema TAKE 1 TABLET BY MOUTH ONCE A DAY NEEDED FOR EDEMA/LEG SWELLING 90 tablet 1 04/21/2024 Active Lactobacillus acidophilus (9 sources) Lactobacillus acidophilus (PROBIOTIC ORAL) Take by mouth. Active Lactobacillus [...] (20 sources) Angiotensin Converting Enzyme Inhibitor Start: 04-14-20 23 take 1 tablet by mouth in the morning lisinopril 10 MG tablet Indications: Benign essential hypertension (CMS/HCC) Take 1 tablet (10 mg) by mouth in the morning. 100 tablet 3 11/14/2023 Active Start: 10-28-2019 Co Lisinopril Refills(s) 0 Start Date: 10/28/19 Status: Ordered omega-3 acid ethyl esters (half-way) 1000 mg oral capsule (13 sources) Start: 01-05-2023 take 1 capsule by mouth in the morning omega-3 acid ethyl esters (Lovaza) 1 g capsule Indications: Mixed hyperlipidemia (CMS/HCC) TAKE 1 CAPSULE BY MOUTH IN THE MORNING AND 1 CAPSULE BY MOUTH BEFORE BEDTIME 200 capsule 3 11/14/2023 Active OTC PRODUCT (9 sources) OTC PRODUCT Eye and vision supplement Active OTC PRODUCT Eye and vision supplement 0 Active Comment on above: Eye and vision suppl ement oxybutynin chloride 5 mg oral tablet (4 sources) Cholinergic Muscarinic Antagonist Start: take 1 tablet by mouth at bedtime as needed oxybutynin 5 mg Tab 5 mg = 1 tab(s), Oral, Bedtime, PRN for urinary discomfort, # 30 tab(s), Refills(s) 11, Pharmacy: [facility]/pharmacy #[id number], 175, cm, 12/28/23 8:09:00 EDT, Height/Length [...] by mouth. predniSONE 20 mg oral tablet (5 sources) Start: 12-28-2023 predniSONE 20 mg Tab [...] by mouth once daily. 0 Active simvastatin 20 mg oral tablet (20 sources) HMG-CoA Reductase Inhibitor Start: 01-05-2023 take 1 tablet by mouth in the morning simvastatin (Zocor) 20 MG tablet Indications: Mixed hyperlipidemia (CMS/HCC) Take 1 tablet (20 mg) by mouth in the morning. 100 tablet 3 11/14/2023 Active Start: 01-05-2023 take 1 tablet by dot once daily at bedtime simvastatin (ZOCOR) 10 mg tablet Take 10 mg by mouth daily at bedtime. 01/05/2023 Active Start: 10-28-2019 simvastatin Re fills(s) 0 Start Date: 10/28/19 Status: Ordered Vit D3-Vit K2-Wallace Bauxite Ext (3 sources) Start: 05-29-2023 take 1 capsule by mouth once daily Vit D3-Vit K2-[place]ace B[place] Ext Active 25 CAP PO Daily May 29, 2023 12:00am Vitamins A,C,J-Ocgj-Epfgkq (Preservision Areds) 4,296 mcg-226 mg-90 mg capsule (2 sources) Start: 12-18-2023 take 1 capsule by mouth twice daily Vitamins A,C,E-Zrna-Pfobpn (Preservision Areds) 4,296 mcg-226 mg-90 mg capsule Active 1 CAP PO Twice daily December 18, 2023 12:00am Problems Active Problems Problem Classification Problem Date Documented Da te Episodic/Chronic Cancer of prostate (12 sources) Malignant neoplasm of prostate; Translations: [Malignant tumor of prostate] Onset: 02-05-2023 Chronic Cancer; other and unspecified primary (9 sources) H/O Malignant melanoma 10-28-2019 Episodic Disorders of lipid metabolism (5 sources) Mixed hyperlipidemia; Translations: [Mixed hyperlipidemia] Onset: 03-04-2022 Chronic Essential hypertension (1 source) Benign essential hypertension; Translations: [Essential (primary) hypertension] Onset: 05-28-2023 05-28-2023 Chronic Gastrointestinal hemorrhage (1 source) Rectal hemorrhage; Translations: [Hemorrhage of anus and rectum] 05-03-2023 Episodic Genitourinary symptoms and ill-defined conditions (18 sources) Increased frequency of urination; Translations: [Retention of urine] Onset: 10-08-2023 Resolved: 11-14-2023 09-01-2020 Episodic Heart valve disorders (1 source) Nonrheumatic aortic (valve) stenosis; Translations: [Aortic valve disorders] Onset: 12-06-2023 12-06-2023 Chronic Hyperplasia of prostate (20 sources) Benign prostatic hypertrophy with outflow obstruction; Translations: [Prostate nodule] Onset: 10-04-2009 Resolved: 11-14-2023 10-28-2019 Chronic Osteoarthritis (1 source) Osteoarthritis of joint of right hand; Translations: [Primary osteoarthritis, right hand] Onset: 11-12-2023 11-12-2023 Chronic Other gastrointestinal disorders (1 source) Constipation; Translations: [Constipation, unspecified] 05-03-2023 Episodic Other nutritional; endocrine; and metabolic disorders (10 sources) Body mass index 25-29 - overweight; Translations: [Overweight] Onset: 11-12-2023 09-01-2020 Episodic Other screening for suspected conditions (not mental disorders or infectious disease) (15 sources) Raised prostate specific antigen; Translations: [Elevated prostate specific antigen [PSA]] Onset: 10-17-2022 09-01-2020 Episodic Systemic lupus erythematosus and connective tissue disorders (4 sources) Temporal arteritis; 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] Onset: 12-19-2023 12-18-2023 Chronic Unclassified (1 source) Encounter for screening for malignant neoplasm of colon; Translations: [Encounter for screening for malignant neoplasm of colon] Onset: 05-29-2023 Past or Other Problems Problem Classification Problem Date Documented Da te Episodic/Chronic Abdominal hernia (1 source) Left inguinal hernia ; Translations: [Unilateral inguinal hernia, without obstruction or gangrene, not specified as recurrent] Onset: 11-12-2023 11-12-2023 Episodic Other male genital disorders (1 source) Dysplasia of prostate; 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] Onset: 06-15-2005 Resolved: 11-14-2023 11-14-2023 Episodic Other skin disorders (1 source) Chronic folliculitis; Translations: [Follicular disorder, unspecified] Onset: 11-12-2023 11-12-2023 Episodic Results Test Name Value Interpretation Reference Range Facility Urology Office/Clinic Noteon 07-04-2024 Urology Office/Clinic Note Urology Office/Clinic Note Chief Complaint prostate cancer HPI Staff 5 mos w/ PSA. Previous dx: prostate cancer (brachytherapy 09/06/23), BPH with obstruction/LUTS, urinary retention. *Started on Oxybutynin 5mg qhs at prior OV Last saw Dr. Mendiola 04/10/24. PSA 12/24/23 - 0.59 04/07/24 - 0.28 07/01/24 - 0.30 Dysuria: denies Incomplete bladder emptying: denies Hematuria: denies Frequency: denies Urgency: denies Nocturia: 2x Stream: good steady Leaking: denies Post void dripping: denies Wearing pads/ Depends: denies Urge incontinence: denies Stress incontinence: denies Incontinence without Sensory Awareness: denies Abdominal pain: denies Flank pain: denies Sexual complaints: denies History of Present Illness Tests reviewed: UA, PSA I have reviewed the previous health record [...] See HPI. Physical Exam Vitals & Measurements T: 37 ?C(Temporal Artery) HR: 64(Peripheral) RR: 17 BP: 131/77 HT: 69 in HT: 175 cm WT: 87.1 kg WT: 191.62 lb BMI: 28.44 General Appearance: alert, no distress, well nourished, well developed male. Assessment/Plan 1. Prostate cancer (C61: Malignant neoplasm of prostate) PSA: 08/05/20 - 3.54 11/30/22 - 3.10 & 21.9% 10/08/23 - 1.55 12/24/23 - 0.59 04/07/24 - 0.28 07/01/24 - 0.30 MRI of prostate 12/19/22 - PI-RADS 4 lesion (7 mm x 4mm) TRUS/bx 01/16/23 - Forreston 7 (3+4) GG2. cT2a, N0, M0, stage IIB. S/p brachytherapy 09/06/23. Last onc visit 04/10/24. PSA stable. Will cont to monitor. Cont following with rad onc q6mos. Follow up 1 yr with PSA or sooner if needed. Pt understands and agrees with plan. 2. BPH with obstruction/lower urinary tract symptoms (N40.1: Benign prostatic hyperplasia with lower urinary tract symptoms) UA today negative for blood and infection. Decent stream. Feels he empties completely. 3. Nocturia (R35.1: Nocturia) Most likely due to radiation changes [1]. Started on Oxybutynin 5mg qhs at prior OV. Cont wo changes. Doing well with this med. No nighttime urgency. Follow-up With When Contact Information LADAN EDWARDS, Abran Darling, URL [facility] [address], [place] [address]- Additional Instructions: 1 yr with PSA from rad onc Patient Education Prostate Cancer I, Debi Vidal, personally scribed for Dr. Ochoa on 07/04/2024 10:22:10. . Documentation recorded by the scribe, Debi Vidal, accurately reflects the services(s) I performed and decisions made by me. Authenticated by Dr. Ochoa on 07/04/2024 10:24:48. Problem List/Past Medical History Ongoing BMI 29.0-29.9,adult BPH with obstruction/lower urinary tract symptoms Elevated PSA Frequent urination Nocturia Prostate cancer Prostate nodule Urinary retention Historical [...] artery, Hemorrhoidectomy, Hiatus hernia repair. Medications Co Lisinopril oxybutynin 5 mg Tab, 5 mg= 1 tab(s), Oral, Bedtime, PRN, 11 refills predniSONE 20 mg Tab simvastatin Allergies penicillin (Unknown) sulfonamides (Unknown) Social History Tobacco Never (less than 100 in lifetime) Tobacco Use:. Never Smokeless Tobacco Use:. Household tobacco concerns: No. Yes, 07/04/2024 Family History Prostate cancer: Brother. Immunizations Vaccine Date Status Comments influenza virus vaccine, inactivated 07/31/2023 Recorded influenza virus vaccine, inactivated 08/13/2022 Recorded SARS-CoV-2 (COVID-19) [id number] 08/13/2022 Recorded zoster vaccine, inactivated 12/18/2021 Recorded zoster vaccine, inactivated 09/21/2021 Recorded diphtheria/pertussis, acel/tetanus adult 09/19/2021 Recorded influenza (more content not included)... Normal [facility] Comment on above: Result Comment: Elec tronically Signed By: Abran OCHOA MD\.br\Date and Time Signed: 07/04/24 10:24 EDT\.br\Electronically Co-Signed By: Debi Vidal\.br\Date and Time Co-Signed: 07/04/24 10:22 EDT MHPT PSA, DIAGNOSTICon 07-01 PROSTATE SPECIFIC ANTIGEN DX 0.30 ng/mL NINF - 4.00 ng/mL [facility] Healthcare [facility] Healthcare CNOVon 04-10-2024 CNOV Office Visit (RADTSA ) JOSE CAN ([id number]) 1940 Date Time Provider Department 04/10/24 9:45 AM Jc MENDIOLA During your visit today, we recorded the following information about you: Temperature Pulse Respiration Blood pressure 97.4 degrees 71/minute 18/minute 152/78 Weight 85.3 kg Nichelle Elkins RN 04/14/2024 10:59 AM Signed AUA 4 NATALIO Woodson G Phillip, MD 04/14/2024 10:59 AM Signed Radiation Oncology - Follow Up Note PATIENT NAME: Jose aCn PATIENT DIAGNOSIS: Prostate adenocarcinoma, initial PSA 3.1, [...] ASSESSMENT/PLAN: Prostate adenocarcinoma, initial PSA 3.1, biopsy Forreston score 3 + 4 = 7 (grade [...] Mendiola MD cc: Martir Herbert II, MD [address] [place] [address] Dr. Ochoa Allergies As of Date: 04/10/2024 Noted Allergy Reaction PENICILLINS 02/16/2023 2 - Rash SULFA (SULFONAMIDE ANTIBIOTICS) 02/16/2023 2 - Rash Date Reviewed: 04/10/2024 Reviewed by: Nichelle Elkins RN - Fully Assessed Primary Visit Diagnosis:Malignant neoplasm of prostate (HCC) [C61] Order(s):PSA (OUTSIDE) [0032602] Order #: [id number] Prescriptions as of 04/14/2024 - predniSONE (DELTASONE) [...] 10/11/2023 Visit Notes: >> Nichelle Elkins RN [facility] Apr 10, 2024 9:32 AM Status: Signed AUA 4 Nichelle Elkins RN Disposition: Return in about 1 year (around 04/10/2025). Follow-up and Disposition History for Encounter Date Provider Department Center 04/10/2024 [id number] MENDIOLA DEVIN Bautista Encounter Status:Closed by Jc MENDIOLA on 04/14/24 Normal [facility] Patient Educationon 12-28-19 Patient Education [...] Follow these instructions at home: ? Take ycai-wjg-bfrqomk and prescription medicines only as told by [...] the medicine (more content not included)... Normal [facility] Urology Office/Clinic Noteon 12-28-2023 Urology Office/Clinic Note [...] (7 mm x 4mm) TRUS/bx 01/16/23 - Forreston 7 (3+4) GG2. cT2a, N0, M0, stage [...] IO s/p brachytherapy. Pt then presented to [facility] ER due to inability to urinate after catheter removal. Bladder scan was >500mL. Dc'd home with Mendoza catheter in place. Came to our office 09/21/23 for catheter removal per approval of PRW. No issues with urination after Mendoza was removed. See #2. Follow-up With When Contact Information LADAN EDWARDS, Abran Darling, URL [address] [place] [address]- Additional Instructions: 6 mos w/ PSA Patient [...] Medications Co (more content not included)... Normal [facility] Comment on above: Result Comment: Elec tronically Signed By: Abran OCHOA MD\.br\Date and Time Signed: 12/28/23 08:53 EDT\.br\Electronically Co-Signed By: Agata Durant.br\Date and Time Co-Signed: 12/28/23 08:52 EDT Lab Reportson 12-24-2023 Lab Reports [id number] Normal [facility] PSA (OUTSIDE)on 12-24-2023 [facility] Anisocytosis LM Ql (Bld)Orde red By: Arden Marin on 12-19-2023 Anisocytosis Ql (Bld) Slight Fir [facility] Basic Metabolic Panelon 11-23 Anion gap [Moles/Vol] 9.1 mmol/L Normal 6.0-15.0 [facility] Comment on above: Performed By: #### S CAN CBC, BMP #### [facility] [address] [place] [address] [place] Calcium [Mass/Vol] 8.5 mg/dL Low 8.6-10.3 [facility] Comment on above: Performed By: #### S CAN CBC, BMP #### [facility] [address] [place] [id number] [place] Chloride [Moles/Vol] 103 mmol/L Normal 98-107 [facility] Comment on above: Performed By: #### S CAN CBC, BMP #### [facility] [address] [place] [id number] [place] CO2 [Moles/Vol] 26.0 mmol/L Normal 21.0-31.0 [facility] Comment on above: Performed By: #### S CAN CBC, BMP #### [facility] [address] [place] [id number] [place] Creatinine [Mass/Vol] 0.74 mg/dL Normal 0.70-1.30 [facility] Comment on above: Performed By: #### S CAN CBC, BMP #### [facility] [address] [place] [phone] [place] Creatinine Clr Calc Pharmacy 78.34 Normal [facility] Comment on above: Result Comment: PERF ORMED BY: [place] [address] PATHOLOGIST AUTOMATIC DOOR MECHANIC CAREN DALEY M.D. Performed By: #### S CAN CBC, BMP #### [place] [address] [place] GFR/1.73 sq M.predicted MDRD (S/P/Bld) [Vol rate/Area] mL/min/{1.73_m2} Normal [facility] Comment on above: Performed By: #### S CAN CBC, BMP #### [address] Glucose [Mass/Vol] 88 mg/dL Normal 70-100 [facility] Comment on above: Result Comment: [place] Glucose Reference Range is dependent on time and content of last meal. Glucose of more than 200 mg/dL in a nonstressed, ambulatory subject supports the diagnosis of Diabetes Mellitus. ADA recommended reference range Performed By: #### S CAN CBC, BMP #### [place] [address] [place] Potassium [Moles/Vol] 4.1 mmol/L Normal 3.5-5.1 [facility] Comment on above: Performed By: #### S CAN CBC, BMP #### [address] Sodium [Moles/Vol] 134 mmol/L Low 136-145 [facility] Comment on above: Performed By: #### S CAN CBC, BMP #### [place] [address] [place] Urea nitrogen [Mass/Vol] 23 mg/dL Normal 7-25 [facility] Comment on above: Performed By: #### S CAN CBC, BMP #### [place] [address] [place] Basophils Auto (Bld) [#/Vol] Ordered By: Arden Marin on 12-19-2023 Basophils (Bld) [#/Vol] 0.1 10*3/uL 0.0-0.2 [facility] Basophils/100 WBC Auto (Bld) Ordered By: Arden Marin on 12-19-2023 Basophils/100 WBC (Bld) 0.4 % . [facility] Calcium [Mass/volume] in Ser um or PlasmaOrdered By: Arden Marin on 12-19-2023 Calcium [Mass/Vol] 8.5 mg/dL 8.6-10.3 [facility] Carbon dioxide, total [Moles /volume] in Serum or PlasmaOrdered By: Arden Marin on 12-19-2023 CO2 [Moles/Vol] 26.0 mmol/L 21.0-31.0 [facility] Chloride [Moles/volume] in S jerry or PlasmaOrdered By: Arden Marin on 12-19-2023 Chloride [Moles/Vol] 103 mmol/L 98-107 [facility] Creatinine [Mass/volume] in Serum or PlasmaOrdered By: Arden Marin on 12-19-2023 Creatinine [Mass/Vol] 0.74 mg/dL 0.70-1.30 [facility] ECG 12 lead ECGon 12-19-2023 ECG 12 lead ECG [facility] [place] [address] Electrocardiograph Report Signed Patient: Jose Can MR#: [id number] : 1940 Acct:[id number] Age/Sex: 83 / M ADM Date: 12/19/23 Loc: [place] Room: Type: [facility] Attending Dr: Armani Kelly MD Ordering [...] ECG No previous ECGs available Confirmed by ABRAN SRIVASTAVA MD, FACC ([id number]) on 12/19/2023 6:51:43 AM Referred By: Electronically Signed By:ABRAN ORNELASC Transcribed By: MUS Signed By Pal Srivastava MD 12/19/23 0651 Normal [facility] Eosinophils Auto (Bld) [#/Vo l]Ordered By: Arden Marin on 12-19-2023 Eosinophils (Bld) [#/Vol] 0.1 10*3/uL 0.0-0.45 [facility] Eosinophils/100 WBC Auto (Bl d)Ordered By: Arden Marin on 12-19-2023 Eosinophils/100 WBC (Bld) 0.3 % . [facility] Erythrocyte distribution wid th Auto (RBC) [Ratio]Ordered By: Arden Marin on 12-19-2023 Erythrocyte distribution width (RBC) [Ratio] 13.9 % 12.0-14.8 [facility] Glucose [Mass/volume] in Ser um or PlasmaOrdered By: Arden Marin on 12-19-2023 Glucose [Mass/Vol] 88 mg/dL 70-100 [facility] Comment on above: ADA recommended refe rence rangeRandom Glucose Reference Range is dependent on time and content of last meal. Glucose of more than 200 mg/dL in a nonstressed, ambulatory subject supports the diagnosis of Diabetes Mellitus. Hematocrit Auto (Bld) [Volum e fraction]Ordered By: Arden Marin on 12-19-2023 Hematocrit (Bld) [Volume fraction] 40.8 % 38.8-50.0 [facility] Hemoglobin [Mass/volume] in BloodOrdered By: Arden Marin on 12-19-2023 Hemoglobin (Bld) [Mass/Vol] 13.4 g/dL 13.0-17.0 [facility] Isaías 12-19-2023 L Specimen: [id number] Received: 12/19/23-910 Status: SOUT Req Num: [id number] Spec Type: Surgical Subm Dr: Armani Kelly MD Tissues: A Artery Temporal- Biopsy (RT TEMPORAL ARTERY BX) Procedures: Trichrome/2, CD45/2, HE/20, Gross/Micro L4, CD20/2, CD3/2, CD68/2 Age/ Patient Sex Location Account Attending Physician Jose Can 83/M [place] [id number] Armani Kelly MD SPEC NUM: [id number] RECD: 12/19/23 STATUS: RANDI CAPELLAN NUM: [id number] FAIZAN: 12/19/[address] [facility] [address]: Armani Kelly MD ENTERED: 12/19/[address] [facility] [address]: SPEC TYPE: Surgical DEPT: S [...] Clinical Information Right temporal arteritis -------- Specimen: [id number] Received: 12/19/23 Status: RANDI Capellan Num: [id number] Spec Type: Surgical Subm Dr: Armani Kelly MD Tissues: A Artery Temporal- Biopsy (RT TEMPORAL ARTERY BX) Procedures: Trichrome/2, CD45/2, HE/20, Gross/Micro L4, CD20/2, CD3/2, CD68/2 -------- Patient: Jose Can [id number] (Continued) -------- Specimen: [id number] Received: 12/19/23 (Continued) Signed (signature on file) Mee Bush MD 12/21/231838 -------- Specimen: [id number] Received: 12/19/23 Status: RANDI Capellan Num: [id number] Spec Type: Surgical Subm Dr: Armani Kelly MD Tissues: A Artery Temporal- Biopsy (RT TEMPORAL ARTERY BX) Procedures: Trichrome/2, CD45/2, HE/20, Gross/Micro L4, CD20/2, CD3/2, CD68/2 -------- Patient: Jose Can [id number] (Continued) -------- Specimen: [id number] Received: 12/19/23 (Continued) Gross Description Received fresh labeled with the patient's name, date of and temporal artery biopsy right is a 7.8 x 0.3 cm cabrera-pink tubular tissue with attached silver metal clips. Sectioning reveals a patent lumen. Entirely submitted in two cassettes labeled A1-A2. CPT Codes 00951 99707, [id number] -------- -------- Specimen: [id number] Received: 12/19/23 Status: RANDI Capellan Num: [id number] Spec Type: Surgical Subm Dr: Armani Kelly MD Tissues: A Artery Temporal- Biopsy (RT TEMPORAL ARTERY BX) Procedures: Trichrome/2, CD45/2, HE/20, Gross/Micro L4, CD20/2, CD3/2, CD68/2 -------- Patient: Jose Can [id number] (Continued) -------- Signed (signature on file) Mee Bush MD 12/21/23 1839 Normal [facility] Leukocytes [#/volume] correc claudia for nucleated erythrocytes in Blood by Automated counOrdered By: Arden Marin on 12-19-2023 WBC corrected for nucl RBC Auto (Bld) [#/Vol] 16.2 10*3/uL 4.1-10.5 [facility] Lymphocytes Auto (Bld) [#/Vo l]Ordered By: Arden Marin on 12-19-2023 Lymphocytes (Bld) [#/Vol] 2.9 10*3/uL 1.00-4.8 [facility] Lymphocytes/100 WBC Auto (Bl d)Ordered By: Arden Marin on 12-19-2023 Lymphocytes/100 WBC (Bld) 17.7 % . [facility] MCH Auto (RBC) [Entitic mass ]Ordered By: Arden Marin on 12-19-2023 MCH (RBC) [Entitic mass] 28.9 pg 27.5-35.2 [facility] MCHC Auto (RBC) [Mass/Vol]Or dered By: Arden Marin on 12-19-2023 MCHC (RBC) [Mass/Vol] 32.8 g/dL 32.5-35.6 [facility] MCV Auto (RBC) [Entitic vol] Ordered By: Arden Marin on 12-19-2023 MCV (RBC) [Entitic vol] 88.0 fL 83.5-101 [facility] Microcytes LM Ql (Bld)Ordere d By: Arden Marin on 12-19-2023 Microcytes Ql (Bld) Slight [facility] Monocytes Auto (Bld) [#/Vol] Ordered By: Arden Marin on 12-19-2023 Monocytes (Bld) [#/Vol] 1.3 10*3/uL 0.0-0.8 [facility] Monocytes/100 WBC Auto (Bld) Ordered By: Arden Marin on 12-19-2023 Monocytes/100 WBC (Bld) 8.3 % . [facility] Neutrophils Auto (Bld) [#/Vo l]Ordered By: Arden Marin on 12-19-2023 Neutrophils (Bld) [#/Vol] 11.9 10*3/uL 1.8-7.7 [facility] Neutrophils/100 WBC Auto (Bl d)Ordered By: Arden Marin on 12-19-2023 Neutrophils/100 WBC (Bld) 73.3 % . [facility] No Panel InformationOrdered By: Arden Marin on 12-19-2023 Estimated GFR (CKD-EPI) > 60.0 mL/Min [facility] Creatinine Clearance (Chem 78.34 [facility] Nucleated erythrocytes [Pres ence] in Blood by Automated countOrdered By: Arden Marin on 12-19-2023 Nucleated RBC Auto Ql (Bld) 0.1 /100{WBC} 0-0.5 [facility] Ovalocyte detectionOrdered B y: Arden Marin on 12-19-2023 Ovalocytes LM Ql (Bld) Slight [facility] Platelet adequacy [Presence] in Blood by Light microscopyOrdered By: Arden Marin on 12-19-2023 Platelets LM Ql (Bld) Normal Normal [facility] Platelet mean volume Auto (B ld) [Entitic vol]Ordered By: Arden Marin on 12-19-2023 Platelet mean volume (Bld) [Entitic vol] 7.4 fL 6.6-10.1 [facility] Platelet morphology finding [Identifier] in BloodOrdered By: Arden Marin on 12-19-2023 Platelet morphology finding Nom (Bld) Normal Normal [facility] Platelets Auto (Bld) [#/Vol] Ordered By: Arden Marin on 12-19-2023 Platelets (Bld) [#/Vol] 364 10*3/uL 150-450 [facility] Platelets Large [Presence] i n Blood by Light microscopyOrdered By: Arden Marin on 12-19-2023 Platelets Large LM Ql (Bld) Slight [facility] Poikilocytosis [Presence] in Blood by Light microscopyOrdered By: Arden Marin on 12-19-2023 Poikilocytosis LM Ql (Bld) Slight [facility] Potassium [Moles/volume] in Serum or PlasmaOrdered By: Arden Marin on 12-19-2023 Potassium [Moles/Vol] 4.1 mmol/L 3.5-5.1 [facility] RBC Auto (Bld) [#/Vol]Ordere d By: Arden Marin on 12-19-2023 RBC (Bld) [#/Vol] 4.64 10*6/uL 3.90-5.60 [facility] RBC morphologyOrdered By: Kylah Marin on 12-19-2023 RBC morphology finding Nom (Bld) N/A [facility] Scan and CBCon 12-19-2023 Anisocytosis Ql (Bld) Slight Normal [facility] Comment on above: Performed By: #### S CAN CBC, BMP #### [facility] [address] [place] [address] [place] Basophils (Bld) [#/Vol] 0.1 10*3/uL Normal 0.0-0.2 [facility] Comment on above: Performed By: #### S CAN CBC, BMP #### [facility] [address] [place] [address] [place] Basophils/100 WBC (Bld) 0.4 % Normal . [facility] Comment on above: Performed By: #### S CAN CBC, BMP #### [facility] [address] [place] [address] [place] Eosinophils (Bld) [#/Vol] 0.1 10*3/uL Normal 0.0-0.45 [facility] Comment on above: Performed By: #### S CAN CBC, BMP #### [address] Eosinophils/100 WBC (Bld) 0.3 % Normal . [facility] Comment on above: Performed By: #### S CAN CBC, BMP #### [address] Erythrocyte distribution width (RBC) [Ratio] 13.9 % Normal 12.0-14.8 [facility] Comment on above: Performed By: #### S CAN CBC, BMP #### [address] Hematocrit (Bld) [Volume fraction] 40.8 % Normal 38.8-50.0 [facility] Comment on above: Performed By: #### S CAN CBC, BMP #### [address] Hemoglobin (Bld) [Mass/Vol] 13.4 g/dL Normal 13.0-17.0 [facility] Comment on above: Performed By: #### S CAN CBC, BMP #### [address] Large Platelets Slight Normal [facility] Comment on above: Result Comment: PERF ORMED BY: [place] [address] PATHOLOGIST [employer] CAREN DALEY M.D. Performed By: #### S CAN CBC, BMP #### [place] [address] [place] Lymphocytes (Bld) [#/Vol] 2.9 10*3/uL Normal 1.00-4.8 [facility] Comment on above: Performed By: #### S CAN CBC, BMP #### [address] Lymphocytes/100 WBC (Bld) 17.7 % Normal . [facility] Comment on above: Performed By: #### S CAN CBC, BMP #### [address] MCH (RBC) [Entitic mass] 28.9 pg Normal 27.5-35.2 [facility] Comment on above: Performed By: #### S CAN CBC, BMP #### [address] MCV (RBC) [Entitic vol] 88.0 fL Normal 83.5-101 [facility] Comment on above: Performed By: #### S CAN CBC, BMP #### [address] Mean Corpuscular HGB Conc 32.8 g/dL Normal 32.5-35.6 [facility] Comment on above: Performed By: #### S CAN CBC, BMP #### [address] Microcytosis Slight Normal [facility] Comment on above: Performed By: #### S CAN CBC, BMP #### [address] Monocytes (Bld) [#/Vol] 1.3 10*3/uL High 0.0-0.8 [facility] Comment on above: Performed By: #### S CAN CBC, BMP #### [address] Monocytes/100 WBC (Bld) 8.3 % Normal . [facility] Comment on above: Performed By: #### S CAN CBC, BMP #### [address] Neutrophils (Bld) [#/Vol] 11.9 10*3/uL High 1.8-7.7 [facility] Comment on above: Performed By: #### S CAN CBC, BMP #### [address] Neutrophils/100 WBC (Bld) 73.3 % Normal . [facility] Comment on above: Performed By: #### S CAN CBC, BMP #### [address] NRBC% 0.1 /100{WBC} Normal 0-0.5 [facility] Comment on above: Performed By: #### S CAN CBC, BMP #### [address] Ovalocytes Slight Normal [facility] Comment on above: Performed By: #### S CAN CBC, BMP #### [address] Platelet Estimate Normal Normal Normal [facility] Comment on above: Performed By: #### S CAN CBC, BMP #### [address] Platelet mean volume (Bld) [Entitic vol] 7.4 fL Normal 6.6-10.1 [facility] Comment on above: Performed By: #### S CAN CBC, BMP #### [address] Platelet Morphology Normal Normal Normal [facility] Comment on above: Performed By: #### S CAN CBC, BMP #### [address] Platelets (Bld) [#/Vol] 364 10*3/uL Normal 150-450 [facility] Comment on above: Performed By: #### S CAN CBC, BMP #### [address] Poikilocytosis Slight Normal [facility] Comment on above: Performed By: #### S CAN CBC, BMP #### [address] RBC (Bld) [#/Vol] 4.64 10*6/uL Normal 3.90-5.60 [facility] Comment on above: Performed By: #### S CAN CBC, BMP #### [address] WBC (Bld) [#/Vol] 16.2 10*3/uL High 4.1-10.5 [facility] Comment on above: Performed By: #### S CAN CBC, BMP #### [address] [place] [place] [address] [facility] Serum or plasma anion gap de terminationOrdered By: Arden Marin on 12-19-2023 Anion gap [Moles/Vol] 9.1 mmol/L 6.0-15.0 [facility] Sodium [Moles/volume] in Ser um or PlasmaOrdered By: Arden Marin on 12-19-2023 Sodium [Moles/Vol] 134 mmol/L 136-145 [facility] Urea nitrogen [Mass/volume] in Serum or PlasmaOrdered By: Arden Marin on 12-19-2023 Urea nitrogen [Mass/Vol] 23 mg/dL 7-25 [facility] WBC Auto (Bld) [#/Vol]Ordere d By: Arden Marin on 12-19-2023 WBC (Bld) [#/Vol] 16.2 10*3/uL 4.1-10.5 [facility] Consultation Noteon 10-12-19 Consultation Note [id number]#1. 00TIFF [facility] CNOVon 10-11-2023 CNOV Office Visit (RADTSA ) JOSE CAN ([id number]) 1940 M Date Time Provider Department 10/11/23 9:15 AM Jc MENDILOA During your visit today, we recorded the following information about you: Temperature Pulse Respiration Blood pressure 97.3 degrees 87/minute 16/minute 125/67 Weight 86 kg Jc Mendiola MD 10/11/2023 9:38 AM Signed Radiation Oncology - Follow Up Note PATIENT NAME: Jose Can PATIENT DIAGNOSIS: Prostate adenocarcinoma, initial PSA 3.1, biopsy Forreston score 3 + 4 = 7 (grade [...] Mendiola MD cc: Martir Herbert II, MD [address] [place] [address] Debra Anthony LPN 10/11/2023 9:38 AM Signed AUA= 5 Allergies As of Date: 10/11/2023 Noted Allergy Reaction PENICILLINS 02/16/2023 2 - Rash SULFA (SULFONAMIDE ANTIBIOTICS) 02/16/2023 2 - Rash Date Reviewed: 09/19/2023 Reviewed by: Debra Quinn LPN - Fully Assessed Primary Visit Diagnosis:Malignant neoplasm of prostate (HCC) [C61] Order(s):PSA (OUTSIDE) [9982624] Order #: [id number] PSA/PROSTSPECAG DIAG [SQPSA] Order #: [id number] FUTURE Prescriptions as of 10/11/2023 - simvastatin [...] 10/11/2023 Visit Notes: >> Debra Quinn LPN [facility] Oct 11, 2023 9:26 AM Status: Signed AUA= 5 Disposition: Return in about 6 months (around 04/10/2024). Follow-up and Disposition History for Encounter Date Provider Department Center 10/11/2023 [id number] MENDIOLA Encounter Status:Closed by Jc MENDIOLA on 10/11/23 Normal [facility] Consultation Noteon 10-09-19 Consultation Note [id number]# 1.00TIFF [facility] ED Note-Physicianon 10-09-19 24 ED Note-Physician [id number]#1. 00TIFF [facility] Ambulatory Visit Summaryon 0 10-08-2023 Ambulatory Visit Summary JOSE ACN :1940 Visit Date:10/08/2023 Ambulatory Visit Instructions Your Diagnosis Prostate cancer BPH with obstruction/lower urinary tract symptoms Urinary retention Tests Performed Urnls Dip Stick Auto w/o Microscopy POC 38787 Your Care Team Attending Physician - LADAN [...] constipation, you may need to: ? Take asbx-srh-hxqlbax or prescription medicines. ? Eat foods that are high in fiber, such as beans, whole grains, and fresh fruits and vegetables. ? Limit foods that are high in fat and processed sugars, such as fried or sweet foods. General instructions ? Take fjhg-dod-hvndkxo and prescription medicines only as told by [...] if: (more content not included)... Normal [facility]rology Office/Clinic Noteon 10-08-2023 Urology [...] 09/12/23 in our office. Then presented to [facility] ER due to inability to urinate [...] Alpa 6 (3+3) in 4 cores and Forreston 7 (3 +4) in 1 core. Brachytherapy [...] our office after brachytherapy. Then presented to [facility] ER due to inability to urinate after catheter removal. Bladder scan was >500mL. Dc'd home with Mendoza catheter in place. Came to our office 09/21/23 for catheter removal per approval of PRW. Reports he has not had any issues urinating since. Follow-up With When Contact Information LADAN EDWARDS, Abran Darling, URL [facility] [address] [place] [address]- [phone] Additional Instructions: 3 mos w/ PSA Patient Education Brachytherapy for Prostate Cancer, Care After I, Michaela Herbert, personally scribed for Dr. Ochoa on 10/08/2023 10:35:10. . Documentation recorded by the Michaela john, accurately reflects the services(s) I performed [...] hernia rep (more content not included)... Normal [facility] Comment on above: Result Comment: Elec tronically [...] Follow-Up Appointments Sunday 9:30 AM EST With: LDAAN EDWARDS, Abran Darling Where: [facility] [address] [place] [address]- \.br\ Medications\.b r\ What When Instructions\. br\ Unchanged lisinopril (Co Lisinopril)\.b r\ Unchanged simvastatin\.b r\ Allergies\.br\ penicillin (Unknown)\.br\ sulfonamides (Unknown)\.br\ Problems\.br\ Ongoing - Any problem that you are currently receiving treatment for.\.br\ BMI 29.0-29.9,adul t\.br\ BPH with obstruction/lo wer urinary tract symptoms\.br\ Elevated PSA\.br\ Frequent urination\.br\ [...] for choosing us for your care.\.br\ \.br\ [facility] CNOVon 09-19-2023 CNOV Office Visit (RADTSA ) JOSE CAN ([id number]) 1940 M Date Time Provider Department 09/19/23 [...] Mendiola MD cc: Martir Herbert II, MD [address] [place] [id number] No referring provider defined for this encounter. Allergies As of Date: 09/19/2023 Noted Allergy Reaction PENICILLINS 02/16/2023 2 - Rash SULFA (SULFONAMIDE ANTIBIOTICS) 02/16/2023 2 - Rash Date Reviewed: 09/19/2023 Reviewed by: Debra Quinn LPN - Fully Assessed Reason for Visit: Prostate Cancer [590] Primary Visit Diagnosis:Malignant neoplasm of prostate (HCC) [C61] Order(s):PSA/PROSTSPE CAG DIAG [SQPSA] Order #: [id number] FUTURE Prescriptions as of 09/19/2023 - simvastatin [...] for Encounter Date Provider Department Center 09/19/2023 [id number] MENDIOLA DEVIN BAUTISTA Encounter Status:Closed by Jc MENDIOLA on 09/19/23 Normal [facility] Ambulatory Visit Summaryon 1 11-13-2022 [...] EDWARDS, Abran Darling Where: [facility] [address] [place] [address]- \.br\ Medications\.b r\ What When Instructions\. br\ Unchanged lisinopril (Co Lisinopril)\.b r\ Unchanged simvastatin\.b r\ Allergies\.br\ penicillin (Unknown)\.br\ sulfonamides (Unknown)\.br\ Problems\.br\ Ongoing - Any problem that you are currently receiving treatment for.\.br\ BMI 29.0-29.9,adul t\.br\ BPH with obstruction/lo wer urinary tract symptoms\.br\ Elevated PSA\.br\ Frequent urination\.br\ [...] for choosing us for your care.\.br\ \.br\ [facility] Lab Reportson 09-07-2023 Lab Reports [id number]#1 .00TIFF Normal [facility] Operative Reporton Operative Report [id number]#1 .00TIFF Normal [facility] RAD - MISCon 09-07-2023 RAD - MISC [id number]#1 .00TIFF Normal [facility] CNOVon 09-06-2023 CNOV Office Visit (RADTSA ) JOSE CAN ([id number]) 1940 M Date Time Provider Department 09/06/23 9:00 AM Jc MENDIOLA During your visit today, we recorded the following information about you: Jc Mendiola MD 09/06/2023 3:18 PM Signed Date: 09/06/23 Facility: [facility] Procedure: prostate transperineal brachytherapy implant Diagnosis: [...] patient identified by name and hospital ID jacques. After anesthesia administered patient placed in dorsal-lithotomy [...] activity seen, results documented. Edilma Mendiola MD [facility] Allergies As of Date: 09/06/2023 Noted [...] Status:Closed by Jc MENDIOLA on 09/06/23 Normal [facility] Consultation Noteon 08-10-20 Consultation Note [id number]#1 .00TIFF Normal [facility] Tele[facility] (RADTSA) JOSE CAN ([id number]) 1940 M Date Time Provider Department 07/24/23 [...] Status:Closed by DEBRA QUINN on 07/25/23 Normal [facility] ECG 12-Leadon 07-24-2023 ECG 12-Lead [id number]#1 .00TIFF Normal [facility] Formson 07-24-2023 Forms [id number]#1 .00TIFF Normal [facility] ECG 12-Leadon 07-20-2023 ECG 12-Lead [id number]#1 .00TIFF Normal [facility] Lab Reportson 07-20-2023 Lab Reports [id number]#1. 00TIFF Normal [facility] Lab Reports [id number] #1.00TIFF Normal [facility] Lab Reports [id number]#1. 00TIFF Normal [facility] RAD - MISCon 07-20-2023 RAD - MISC [id number]#1. 00TIFF Normal [facility] CNOVon 07-11-2023 CNOV Office Visit (RADTSA ) JOSE CAN ([id number]) 1940 M Date Time Provider Department 07/11/23 [...] Encounter Status:Closed by Jc MENDIOLA on 07/12/23 [facility] Rebecca 06-04-2023 [facility] Telephone (RADGenprexA) JOSE CAN ([id number]) 1940 M Date Time Provider Department 9/11/23 Jc MENDIOLA During your visit today, we [...] Encounter Status:Closed by NICHELLE ELKINS on 06/04/23 [facility] 05-29-2023 L - -------- Specimen: [id number] Received: 05/29/23 Status: RANDI Capellan Num: [id number] Spec Type: Surgical Subm Dr: Juan Jiang MD Tissues: A Colon Biopsy (ASCENDING POLYP) Procedures: HE/2, Gross/Micro L4 -------- Age/ Patient Sex Location Account Attending Physician -------- Jose Can /[facility] [id number] Juan Jiang MD -------- SPEC NUM: [id number] RECD: 05/29/23 STATUS: RANDI BEULAH NUM: [id number] FAIZAN: 05/29/23- SUBM DR: Juan Jiang MD ENTERED: 05/29/[address] [facility] [address]: IRVIN TYPE: Surgical DEPT: S ORDERED: [...] microscopic examination confirms the diagnosis. CPT Codes 40364 -------- -------- Specimen: [id number] Received: 05/29/23 Status: RANDI Capellan Num: [id number] Spec Type: Surgical Subm Dr: Juan Jiang MD Tissues: A Colon Biopsy (ASCENDING POLYP) Procedures: HENOK/Areli Schwab/Phuc L4 -------- Patient: Jose Can [id number] (Continued) -------- Signed (signature on file) Kashmir Linares MD 09/07/23 1712 Normal [facility] Rebecca 05-02-2023 CNPN Telephone (RADTSA) JOSE CAN ([id number]) 1940 M Date Time Provider Department 05/02/23 [...] colonoscopy was done per Dr Franco at [facility] in 2016. It was normal. Dr [...] Status:Closed by NICHELLE ELKINS on 05/29/23 Normal [facility] Creatinine (Bld) [Mass/Vol]O rdered By: Abran Ochoa on 12-19-2022 Creatinine [Mass/Vol] 0.9 mg/dL 0.6-1.3 [facility] Comment on above: ER/ESD physician is notified/shown all ISTAT results.Critical values may be confirmed by laboratory testing ifdeemed necessary by ER attending doctor. PSA, FREE AND TOTAL RATIOon 10-18-2022 % Free PSA 21.9 % Normal [facility] Comment on above: Result Comment: The [...] men. Performed By: #### P SAFREE #### [facility] [address] [place] [address] Dr. Deisi Bush Prostate specific Ag [Mass/Vol] 3.1 ng/mL Normal 0.0-4.0 [facility] Comment on above: Result Comment: Cris baker ECLIA methodology. . According to the [employer], Serum PSA should decrease and [...] disease. Performed By: #### P SAFREE #### [facility] [address] [place] [address] Dr. Deisi Bush PSA, Free 0.68 ng/mL Normal N/A [facility] Comment on above: Result Comment: Roch olivia ECLIA methodology. Performed By: #### P SAFREE #### [facility] [address] [place] [address] Dr. Deisi Bush CBC AUTO DIFFon 03-04-2022 BASO # 0.0 103/ul Normal 0.0-0.1 [facility] Comment on above: Performed By: #### C BC #### [facility] [address] [address] [address] Deisi Bush Basophils/100 WBC (Bld) 0.6 % Normal 0.2-2.0 [facility] Comment on above: Performed By: #### C BC #### [facility] [address] [address] [address] Deisi Bush EO # 0.5 103/ul Normal 0.0-0.7 [facility] Comment on above: Performed By: #### C BC #### [facility] [address] [place] [address] Dr. Deisi Bush Eosinophils/100 WBC (Bld) 10.2 % Critically high 0.9-7.0 [facility] Comment on above: Performed By: #### C BC #### [facility] [address] [place] [address] Dr. Deisi Bush Erythrocyte distribution width (RBC) [Ratio] 13.4 % Normal 11.0-15.0 [facility] Comment on above: Performed By: #### C BC #### [facility] [address] [place] [address] Dr. Deisi Bush Hematocrit (Bld) [Volume fraction] 42.3 % Normal 42.0-54.0 [facility] Comment on above: Performed By: #### C BC #### [facility] [address] [place] [address] Dr. Deisi Bush Hemoglobin (Bld) [Mass/Vol] 14.1 g/dL Normal 14.0-18.0 [facility] Comment on above: Performed By: #### C BC #### [facility] [address] [place] [address] Dr. Deisi Bush IG # 0.01 10e3/ul Normal 0.00-0.03 [facility] Comment on above: Performed By: #### C BC #### [facility] [address] [place] [address] Dr. Deisi Bush IG % 0.2 % Normal 0.0-0.5 [facility] Comment on above: Performed By: #### C BC #### [facility] [address] [place] [address] Dr. Deisi Bush LYMPH # 2.4 103/ul Normal 1.2-3.8 [facility] Comment on above: Performed By: #### C BC #### [facility] [address] [place] [address] Dr. Deisi Bush Lymphocytes/100 WBC (Bld) 46.5 % Normal 20.5-60.0 [facility] Comment on above: Performed By: #### C BC #### [facility] [address] [place] [address] Dr. Deisi Bush MANUAL DIFF REQ NO Normal [facility] Comment on above: Performed By: #### C BC #### [facility] [address] [place] [address] Dr. Deisi Bush MCH (RBC) [Entitic mass] 30.5 pg Normal 25.9-34.0 [facility] Comment on above: Performed By: #### C BC #### [facility] [address] [place] [address] Dr. Deisi Bush MCHC (RBC) [Mass/Vol] 33.3 g/dL Normal 29.9-35.2 [facility] Comment on above: Performed By: #### C BC #### [facility] [address] [place] [address] Dr. Deisi Bush MCV (RBC) [Entitic vol] 91.4 fL Normal 80.0-94.0 [facility] Comment on above: Performed By: #### C BC #### [facility] [address] [place] [address] Dr. Deisi Bush MONO # 0.6 103/ul Normal 0.3-0.8 [facility] Comment on above: Performed By: #### C BC #### [facility] [address] [place] [address] Dr. Deisi Bush Monocytes/100 WBC (Bld) 10.6 % Normal 1.7-12.0 [facility] Comment on above: Performed By: #### C BC #### [facility] [address] [place] [address] Dr. Deisi Bush NEUT # 1.7 103/ul Normal 1.4-6.5 [facility] [facility] Comment on above: Performed By: #### C BC #### [facility] [address] [address] [address] Deisi Bush Neutrophils/100 WBC (Bld) 31.9 % Critically low 43.0-75.0 [facility] Comment on above: Performed By: #### C BC #### [facility] [address] [address] [address] Deisi Bush Platelet mean volume (Bld) [Entitic vol] 9.2 fL Critically low 9.5-13.5 [facility] Comment on above: Performed By: #### C BC #### [facility] [address] [address] [address] Deisi Bush PLT 219 103/ul Normal 150-450 [facility] Comment on above: Performed By: #### C BC #### [facility] [address] [place] [address] Dr. Deisi Bush RBC 4.63 106/ul Critically low 4.70-6.10 [facility] Comment on above: Performed By: #### C BC #### [facility] [address] [address] [address] Deisi Bush WBC 5.2 103/ul Normal 4.0-11.0 [facility] Comment on above: Performed By: #### C BC #### [facility] [address] [place] [address] Dr. Deisi Bush LIPID PROFILEon 03-04-2022 CHOL-HDL RATIO NORM SEE BELOW Normal [facility] Comment on above: Result Comment: 3.3 - 4.4 LOW RISK 4.4 - 7.1 AVERAGE RISK 7.1 - 11.0 MODERATE RISK >11.0 HIGH RISK Performed By: #### T SH, LIPID, CMP #### [facility] [address] [place] [address] Dr. Deisi Bush Cholesterol [Mass/Vol] 125 mg/dL Normal <=[address] [facility] Comment on above: Performed By: #### T SH, LIPID, CMP #### [facility] [address] [address] [address] Deisi Bush Cholesterol in HDL [Mass/Vol] 37 mg/dL Critically low 40-60 [facility] Comment on above: Performed By: #### T SH, LIPID, CMP #### [facility] [address] [address] [address] Deisi Bush Cholesterol in LDL [Mass/Vol] 75.6 mg/dL Normal [facility] Comment on above: Performed By: #### T SH, LIPID, CMP #### [facility] [address] [place] [address] Dr. Deisi Bush Cholesterol.total/Chol esterol in HDL [Mass ratio] 3.4 {ratio} Normal [facility] Comment on above: Performed By: #### T SH, LIPID, CMP #### [facility] [address] [place] [address] Dr. Deisi Bush HDL NORMAL > or = 60 mg/dl - LO W CARDIOVASCULAR RISK <40 mg/dl - HIGH CARDIOVASCULAR RISK Normal [facility] Comment on above: Performed By: #### T SERGIO, LIPID, CMP #### [facility] [address] [place] [address] Dr. Deisi Bush LDL CALC NORMAL SEE BELOW Normal [facility] Comment on above: Result Comment: <100 mg/dl OPTIMAL 100 - 129 mg/dl NEAR OR ABOVE OPTIMAL 130 - 159 mg/dl BORDERLINE HIGH 160 - 189 mg/dl HIGH >190 mg/dl VERY HIGH Performed By: #### T SERGIO, LIPID, CMP #### [facility] [address] [place] [address] Dr. Deisi Bush Triglyceride [Mass/Vol] 62 mg/dL Normal <=150 [facility] Comment on above: Performed By: #### T SH, LIPID, CMP #### [facility] [address] [place] [address] Dr. Deisi Bush VLDL CALC 12.4 mg/dL Normal [facility] Comment on above: Performed By: #### T SH, LIPID, CMP #### [facility] [address] [place] [address] Dr. Deisi Bush PROF 14(COMP METB)on 022 Albumin [Mass/Vol] 3.4 g/dL Normal 3.4-5.0 [facility] Comment on above: Performed By: #### T SH, LIPID, CMP #### [facility] [address] [address] [address] Deisi Bush Albumin/Globulin [Mass ratio] 0.9 {ratio} Normal [facility] Comment on above: Performed By: #### T SH, LIPID, CMP #### [facility] [address] [address] [address] Deisi Bush ALP [Catalytic activity/Vol] 73 U/L Normal 46-116 [facility] Comment on above: Performed By: #### T SH, LIPID, CMP #### [facility] [address] [address] [address] Deisi Bush ALT [Catalytic activity/Vol] 27 U/L Normal 16-63 [facility] Comment on above: Performed By: #### T SH, LIPID, CMP #### [facility] [address] [address] [address] Deisi Bush Anion gap [Moles/Vol] 11.6 mmol/L Normal [facility] Comment on above: Performed By: #### T SH, LIPID, CMP #### [facility] [address] [address] [address] Deisi Bush AST [Catalytic activity/Vol] 22 U/L Normal 15-37 [facility] Comment on above: Performed By: #### T SH, LIPID, CMP #### [facility] [address] [address] [address] Deisi Bush Bilirubin [Mass/Vol] 1.1 mg/dL Critically high 0.2-1.0 [facility] Comment on above: Performed By: #### T SH, LIPID, CMP #### [facility] [address] [address] [address] Deisi Bush Calcium [Mass/Vol] 8.7 mg/dL Normal 8.5-10.1 [facility] Comment on above: Performed By: #### T SH, LIPID, CMP #### [facility] [address] [address] [address] Deisi Bush Chloride [Moles/Vol] 105 mmol/L Normal 98-107 [facility] Comment on above: Performed By: #### T SH, LIPID, CMP #### [facility] [address] [place] [address] Dr. Deisi Bush CO2 [Moles/Vol] 27.6 mmol/L Normal 21.0-32.0 [facility] Comment on above: Performed By: #### T SH, LIPID, CMP #### [facility] [address] [place] [address] Dr. Deisi Bush Creatinine [Mass/Vol] 0.90 mg/dL Normal 0.70-1.30 [facility] Comment on above: Performed By: #### T SH, LIPID, CMP #### [facility] [address] [place] [address] Dr. Deisi Bush EGFR-AF [place] >60 Normal >=60 [facility] Comment on above: Performed By: #### T SH, LIPID, CMP #### [facility] [address] [place] [address] Dr. Deisi Bush EGFR-NON AF [place] >60 Normal >=60 [facility] Comment on above: Performed By: #### T SH, LIPID, CMP #### [facility] [address] [place] [address] Dr. Deisi Bush Globulin (S) [Mass/Vol] 3.6 g/dL Normal [facility] Comment on above: Performed By: #### T SH, LIPID, CMP #### [facility] [address] [place] [address] Dr. Deisi Bush Glucose [Mass/Vol] 96 mg/dL Normal 74-106 [facility] Comment on above: Performed By: #### T SH, LIPID, CMP #### [facility] [address] [place] [address] Dr. Deisi Bush Potassium [Moles/Vol] 4.2 mmol/L Normal 3.5-5.1 [facility] Comment on above: Performed By: #### T SH, LIPID, CMP #### [facility] [address] [place] [address] Dr. Deisi Bush Protein [Mass/Vol] 7.0 g/dL Normal 6.4-8.2 [facility] Comment on above: Performed By: #### T SH, LIPID, CMP #### [facility] [address] [address] [address] Deisi Bush Sodium [Moles/Vol] 140 mmol/L Normal 136-145 [facility] Comment on above: Performed By: #### T SH, LIPID, CMP #### [facility] [address] [address] [address] Deisi Bush Urea nitrogen [Mass/Vol] 16.0 mg/dL Normal 7.0-18.0 [facility] Comment on above: Performed By: #### T SH, LIPID, CMP #### [facility] [address] [place] [address] Dr. Deisi Bush Urea nitrogen/Creatinine [Mass ratio] 17.8 mg/mg Normal [facility] Comment on above: Performed By: #### T SH, LIPID, CMP #### [facility] [address] [place] [address] Dr. Deisi Bush TSHon 03-04-2022 TSH 1.259 uIU/mL Normal 0.358-3.740 [facility] Comment on above: Performed By: #### T SH, LIPID, CMP #### [facility] [address] [place] [address] Dr. Deisi Bush TSH RANGE SEE BELOW Normal [facility] Comment on above: Result Comment: <0.3 4 UIU/ml HYPERTHYROID 0.34-5.60 UIU/ml EUTHYROID >5.60 UIU/ml HYPOTHYROID Performed By: #### T SH, LIPID, CMP #### [facility] [address] [place] [address] Dr. Deisi Bush Lipid Panelon 09-21-2021 Cholesterol [Mass/Vol] 181 mg/dL Normal 125-200 [facility] [place] [facility] Comment on above: Result Comment: Low risk < 200mg/dL Borderline risk 201-239 mg/dl High risk > or equal to 240 Performed By: #### L IPD #### [facility] [address] [facility] [place] [id number] Cholesterol in HDL [Mass/Vol] 41 mg/dL Normal >40 [facility] Comment on above: Result Comment: High Cardiovascular Risk HDL <40 mg/dL Low Cardiovascular Risk HDL > or equal to 60 mg/dl Performed By: #### L IPD #### [facility] [address] [place], [place] [id number] Cholesterol in LDL [Mass/Vol] 126 mg/dL Normal [facility] Comment on above: Result Comment: LDL ATP III CLASSIFICATION LDL less than 100 mg/dl Optimal LDL 100-129 mg/dl Near or above optimal LDL 130-159 Borderline high LDL 160-189 High LDL greater than 189 mg/dl Very High Performed By: #### L IPD #### [facility] [address] [place], [place] [id number] Cholesterol in VLDL [Mass/Vol] 14 mg/dL Normal [facility] Comment on above: Performed By: #### L IPD #### [facility] [address] [place], [place] [id number] Cholesterol.total/Chol esterol in HDL [Mass ratio] 4 {ratio} Normal [facility] Comment on above: Performed By: #### L IPD #### [facility] [address] [place], [place] [id number] Triglyceride [Mass/Vol] 72 mg/dL Normal 30-150 [facility] Comment on above: Result Comment: TRIG ATPIII CLASSIFICATIONS TRIG less than 150 mg/dl Normal TRIG 150-199 mg/dl Borderline High TRIG 200-500 mg/dl High TRIG greather than 500 mg/dl Very High Performed By: #### L IPD #### [facility] [address] [place], [place] [id number] PSA SCREEN (MEDICARE)on 08-25 TPSA 3.110 ng/mL Normal <4.000 [facility] Comment on above: Result Comment: PSA Test Method: ECLIA/Saw e 601 Performed By: #### P SA MC #### [facility] [address] [place], [place] [id number] Vital Signs Date Time Vital Sign Value Performing Clinician Facility 07-04-2024 09:16-0400 Blood Pressure Location Abran OCHOA [facility] 07-04-2024 09:16-0400 Body temperature 98.6 [degF] Abran OCHOA [facility] 07-04-2024 09:16-0400 Diastolic blood pressure 77 mm[Hg] Abran OCHOA [facility] 07-04-2024 09:16-0400 Heart rate 64 /min Abran OCHOA [facility] 07-04-2024 09:16-0400 Respiratory rate 17 /min Abran OCHOA [facility] 07-04-2024 09:16-0400 Systolic blood pressure 131 mm[Hg] Abran OCHOA [facility] 04-10-2024 09:29-0400 Body mass index (BMI) [Ratio] 27.77 kg/m2 KENDRICK Mendiola MD Work Phone: [facility] 04-10-2024 09:29-0400 Body temperature 97.39 [degF] KENDRICK Mendiola MD Work Phone: [facility] 04-10-2024 09:29-0400 Body weight 85.3 kg KENDRICK Mendiola MD Work Phone: [facility] 04-10-2024 09:29-0400 Diastolic blood pressure 78 mm[Hg] KENDRICK Mendiola MD Work Phone: [facility] 04-10-2024 09:29-0400 Heart rate 71 /min KENDRICK Mendiola MD Work Phone: [facility] 04-10-2024 09:29-0400 Respiratory rate 18 /min KENDRICK Mendiola MD Work Phone: [facility] 04-10-2024 09:29-0400 SaO2% (BldA) [Mass fraction] 96 % KENDRICK Mendiola MD Work Phone: [facility] 04-10-2024 09:29-0400 Systolic blood pressure 152 mm[Hg] KENDRICK Mendiola MD Work Phone: [facility] 12-28-2023 08:06-0400 Blood Pressure Location Abran OCHOA [facility] 12-28-2023 08:06-0400 Diastolic blood pressure 87 mm[Hg] Abran OCHOA [facility] 12-28-2023 08:06-0400 Heart rate 51 /min Abran OCHOA [facility] 12-28-2023 08:06-0400 Respiratory rate 16 /min Abran OCHOA [facility] 12-28-2023 08:06-0400 Systolic blood pressure 131 mm[Hg] Abran OCHOA [facility] 12-19-2023 09:30-0400 Diastolic blood pressure 89 mm[Hg] II Martir Herbert Work Phone: [facility] 12-19-2023 09:30-0400 Heart rate 51 /min II Martir Herbert Work Phone: [facility] 12-19-2023 09:30-0400 Respiratory rate 16 /min II Martir Herbert Work Phone: [facility] 12-19-2023 09:30-0400 SaO2% (BldA) [Mass fraction] 97 % II Martir Herbert Work Phone: [facility] 12-19-2023 09:30-0400 Systolic blood pressure 165 mm[Hg] II Martir Herbert Work Phone: [facility] 12-19-2023 07:04-0400 Body height 175.26 cm II Martir Herbert Work Phone: [facility] 12-19-2023 07:04-0400 Body mass index (BMI) [Ratio] 28.8 kg/m2 II Martir Herbert Work Phone: [facility] 12-19-2023 07:04-0400 Body weight 88.45 kg II Martir Herbert Work Phone: [facility] 12-19-2023 06:22-0400 Body temperature 97.6 [degF] II Martir Herbert Work Phone: [facility] 12-18-2023 11:59-0400 Body height 175.26 cm [facility] 12-18-2023 11:59-0400 Body mass index (BMI) [Ratio] 26.6 kg/m2 [facility] 12-18-2023 11:59-0400 Body temperature 97.6 [degF] [facility] 12-18-2023 11:59-0400 Body weight 81.64 kg [facility] 12-18-2023 11:59-0400 Diastolic blood pressure 72 mm[Hg] [facility] 12-18-2023 11:59-0400 Heart rate 62 /min [facility] 12-18-2023 11:59-0400 Respiratory rate 16 /min [facility] 12-18-2023 11:59-0400 SaO2% (BldA) [Mass fraction] 98 % [facility] 12-18-2023 11:59-0400 Systolic blood pressure 120 mm[Hg] [facility] 10-08-2023 09:53-0500 Blood Pressure Location Abran OCHOA [facility] 10-08-2023 09:53-0500 Diastolic blood pressure 74 mm[Hg] Abran OCHOA [facility] 10-08-2023 09:53-0500 Heart rate 72 /min Abran OCHOA [facility] 10-08-2023 09:53-0500 Respiratory rate 16 /min Abran OCHOA [facility] 10-08-2023 09:53-0500 Systolic blood pressure 130 mm[Hg] Abran OCHOA [facility] 05-29-2023 09:10-0400 Diastolic blood pressure 67 mm[Hg] II Martir Herbert Work Phone: [facility] 05-29-2023 09:10-0400 Heart rate 51 /min II Martir Herbert Work Phone: [facility] 05-29-2023 09:10-0400 Respiratory rate 16 /min II Martir Herbert Work Phone: [facility] 05-29-2023 09:10-0400 SaO2% (BldA) [Mass fraction] 96 % II Martir Herbert Work Phone: [facility] 05-29-2023 09:10-0400 Systolic blood pressure 131 mm[Hg] II Martir Herbert Work Phone: [facility] 05-29-2023 07:30-0400 Body height 175.26 cm II Martir Herbert Work Phone: [facility] 05-29-2023 07:30-0400 Body temperature 98 [degF] II Martir Herbert Work Phone: [facility] 05-29-2023 07:30-0400 Body weight 81.64 kg II Martir Herbert Work Phone: [facility] 02-05-2023 08:47-0400 Diastolic blood pressure 80 mm[Hg] Abran OCHOA [facility] 02-05-2023 08:47-0400 Mean blood pressure 103 mm[Hg] Abran OCHOA [facility] 02-05-2023 08:47-0400 Systolic blood pressure 150 mm[Hg] Abran OCHOA [facility] 02-05-2023 08:42-0400 Blood Pressure Location Abran OCHOA [facility] 02-05-2023 08:42-0400 Diastolic blood pressure 80 mm[Hg] Abran OCHOA [facility] 02-05-2023 08:42-0400 Heart rate 53 /min Abran OCHOA [facility] 02-05-2023 08:42-0400 Systolic blood pressure 154 mm[Hg] Abran OCHOA [facility] 12-19-2022 06:51-0400 Body height 177.8 cm II Martirheraclio Herbert Work Phone: [facility] 12-19-2022 06:51-0400 Body weight 81.64 kg II Martirheraclio Herbert Work Phone: [facility] 12-04-2022 12:26-0400 Blood Pressure Location Abran OCHOA [facility] 12-04-2022 12:26-0400 Diastolic blood pressure 70 mm[Hg] Abran OCHOA [facility] 12-04-2022 12:26-0400 Heart rate 64 /min Abran OCHOA [facility] 12-04-2022 12:26-0400 Systolic blood pressure 149 mm[Hg] Abran OCHOA [facility] Encounters Encounter Date Encounter Type Care Provider Facility Start: 07-06-2025 ambulatory Abran Phong LADAN Hernandezi ty:[facility] Start: 07-04-2024 End: 07-04-2024 ambulatory Abran Phong LADAN Facility:[facility] Start: 07-04-2024 End: 07-04-2024 Patient encounter procedure Abran Phong LADAN [facility] Start: 07-01-2024 End: 07-01-2024 Clinisync Result Encounter Generic External Data Provider [facility] Unsolicited Start: 07-01-2024 End: 07-01-2024 Clinisync Result Encounter Generic External Data Provider [facility] External Department Unsolicited Start: 04-10-2024 End: 04-10-2024 Patient encounter procedure G Chirag Mendiola MD Work Phone: Radiation Oncology Comment on above: Malignant neoplasm o f prostate (HCC) (Primary Dx) Start: 04-10-2024 End: 04-10-2024 ambulatory MARTIR HERBERT II Facility:[facility] Start: 03-26-2024 End: 03-26-2024 ambulatory MARTIR HERBERT Not Available Start: 12-28-2023 End: 12-28-2023 ambulatory Abran OCHOA Facility:[facility] Start: 12-28-2023 End: 12-28-2023 Patient encounter procedure Abran Phong LADAN [facility] Start: 12-20-2023 End: 12-20-2023 ambulatory MARTIR HERBERT Not Available Start: 12-19-2023 Non-patient / Non-visit II Domenic Herbert Work Phone: [facility] Vascular Surgery Work Phone: Start: 12-19-2023 End: 12-19-2023 ambulatory Armani Kelly Facility:[facility] Start: 12-19-2023 End: 12-19-2023 Admission to same day surgery center II Martir Herbert Work Phone: [facility] [place] Start: 12-19-2023 End: 12-19-2023 ambulatory II Martir Herbert Work Phone: [facility] Work Phone: Start: 12-18-2023 End: 12-18-2023 ambulatory [facility] Work Phone: Start: 12-18-2023 End: 12-18-2023 Patient encounter procedure [facility] Vascular Surgery Work Phone: Start: 12-06-2023 End: 12-06-2023 ambulatory MARTIR HERBERT Not Available Start: 11-14-2023 End: 11-14-2023 ambulatory MARTIR HERBERT Not Available Start: 10-11-2023 End: 10-11-2023 ambulatory MARTIR HERBERT II Facility:[facility] Start: 10-08-2023 End: 10-08-2023 ambulatory Abran OCHOA Facility:[facility] Start: 10-08-2023 End: 10-08-2023 Patient encounter procedure [facility] Start: 10-03-2023 End: 10-03-2023 ambulatory MARTIR HERBERT II Facility:[facility] Start: 10-03-2023 End: 10-03-2023 Subsequent hospital visit by physician [facility] Scan Yunier Lewis Work Phone: Radiology [facility] Start: 09-21-2023 End: 09-21-2023 ambulatory Abran OCHOA Facility:[facility] Start: 09-21-2023 End: 09-21-2023 Patient encounter procedure [facility]CHOA [facility] Start: 09-19-2023 End: 09-19-2023 ambulatory MARTIR HERBERT II Facility:[facility] Start: 09-12-2023 End: 09-12-2023 ambulatory Abranvalentin OCHOA Facility:[facility] Start: 09-12-2023 End: 09-12-2023 Patient encounter procedure Abranvalentin OCHOA [facility] Start: 09-06-2023 End: 09-06-2023 ambulatory MARTIR HERBERT II Facility:[facility] Start: 09-06-2023 End: 09-06-2023 Patient encounter procedure Jc Mendiola MD Work Phone: Radiation Oncology Comment on above: Malignant neoplasm o f prostate (HCC) (Primary Dx) Start: 09-06-2023 End: 09-06-2023 ambulatory Abran OCHOA Facility:[id number] Start: 08-08-2023 ambulatory Abranvalentin OCHOA Facili ty:[facility] Start: 07-25-2023 Patient encounter procedure [facility] Provider [facility] Start: 07-24-2023 Telephone encounter G Chirag Mendiola MD Work Phone: Radiation Oncology Comment on above: Appointment Start: 07-11-2023 Patient encounter procedure Jc Mendiola MD Work Phone: [facility] Start: 07-11-2023 Radiation Oncology Note Jc Mendiola MD Work Phone: Radiation Oncology Comment on above: Simulation Note Start: 07-11-2023 End: 07-11-2023 ambulatory MARTIR HERBERT II Facility:[facility] Start: 05-29-2023 End: 05-29-2023 ambulatory Martirheraclio Herbert Facility:[facility] Start: 05-29-2023 End: 05-29-2023 Admission to same day surgery center MANGO Weberel Keon Work Phone: [facility] Work Phone: Start: 05-29-2023 End: 05-29-2023 ambulatory II Martir Herbert Work Phone: [facility] Work Phone: Start: 05-23-2023 Patient encounter procedure [facility] Provider [facility] Start: 05-02-2023 Telephone encounter G Chirag Mendiola MD Work Phone: Radiation Oncology Comment on above: Constipation; Rectal Bleeding; Future Appointment Start: 02-21-2023 Patient encounter procedure [facility] Provider [facility] Start: 02-05-2023 End: 02-05-2023 Patient encounter procedure Abran OCHOA [facility] Start: 01-16-2023 End: 01-16-2023 Patient encounter procedure Abran OCHOA [facility] Start: 12-19-2022 End: 12-19-2022 ambulatory II Martir Herbert Work Phone: [facility] Work Phone: Start: 12-19-2022 End: 12-19-2022 Patient encounter procedure II Martir Herbert Work Phone: [facility] [place] Work Phone: Start: 12-04-2022 End: 12-04-2022 Patient encounter procedure Abran OCHOA [facility] Start: 10-17-2022 End: 10-18-[address] ABRAN OCHOA Facility:[facility] Start: 09-22-2022 End: 09-22-2022 Patient encounter procedure Abran OCHOA [facility] Start: 03-04-2022 End: 03-05-[address] MARTIR HERBERT Facility:[facility] Procedures Date Procedure Procedure Detail Performing Clinician Start: 07-01-2024 MHPT PSA, DIAGNOSTIC Ge neric External Data Provider Start: 12-24-2023 PSA screening [facility] Provi jihan [...] DTaP,Tdap,Td Vaccine (2 - Td or Tdap) [facility] Start: 04-09-2025 End: 04-09-2025 Patient encounter procedure 04/09/2025 9:00 AM EDT Office Visit Radiation Oncology [address] [address] Jc Mendiola MD [address] [address] Followup Radiation Oncology Comment on above: Followup Start: 09-29-2024 End: 09-29-2024 Patient encounter procedure 09/29/2024 8:30 AM EST Office Visit [facility] [address] [facility] [address] [place] [id number] Martir Herbert MD [address] [facility] [address] [place] [address] [facility] Start: 05-25-2024 Covid-19 Vaccine ( season) Covid-19 Vaccine () [facility] Start: 05-25-2024 Influenza vaccination Influenza Vacc ine (#1) [facility] Start: 12-19-2023 [facility] Start: 12-19-2023 [facility] [facility] Start: 11-29-2023 Covid-19 Vaccine ( season) Covid-19 Vaccine () [facility] Start: 09-24-2023 Advance Directive Discussion Advance Directive Discussion [facility] Start: 09-24-2023 Behavioral Health Screening Behavioral Health Screening [facility] Start: 05-29-2023 [facility] Start: 05-25-2023 Covid-19 Vaccine ( season) Covid-19 Vaccine () [facility] Start: 05-25-2023 Influenza vaccination [facility] Start: 12-11-2022 COVID-19 VACCINE (5 - Pfizer series) COVID-19 VACCINE (5 - Pfizer series) [facility] Start: 09-24-2022 ADVANCE DIRECTIVE DISCUSSION ADVANCE DIRECTIVE DISCUSSION [facility] Start: 09-24-2022 DEPRESSION ASSESSMENT DEPRESSION ASS ESSMENT [facility] Start: 2006 PNEUMOCOCCAL: 65+ (1 - PCV) PNEUMOCOCCAL: 65+ (1 - PCV) [facility] Start: 2001 RSV Vaccine (1 - 1-d ose 60+ series) RSV Vaccine (1 - 1-dose 60+ series) [facility] Start: 11-24-1991 SHINGRIX VACCINE (1 of 2) SHINGRIX VACCINE (1 of 2) [facility] Start: 1986 DIABET[facility]CRE[facility] Start: 1986 Diabetes Screening Diabetes Screenin g [facility] Start: 1960 Urine microalbumin profile DTAP,TDAP,TD (1 - Tdap) [facility] Start: 11-24-1959 Anxiety Screening Anxiety Screening [facility] Start: 11-24-1959 Depression Screening Depression Scre ening [facility] Patient referral [facility] Work Phone: [facility] Immunizations Immunization Date Immunization Notes Care Provider Alvin barker 07-31-2023 COVID-19 (PFIZER) 12Y and older II Martir Herbert Work Phone: [facility] 07-31-2023 influenza virus vacc ine, unspecified formulation Abran OCHOA [facility] 07-31-2023 Influenza, Seasonal, Quadrivalent, Adjuvanted Generic Provider [facility] 08-13-2022 influenza virus vacc ine, unspecified formulation Abran OCHOA [facility] 08-13-2022 Influenza, Seasonal, Quadrivalent, Adjuvanted Generic Provider [facility] 08-13-2022 SARS-CoV-2 (COVID-19 ) [id number] Abran OCHOA [facility] 12-18-2021 zoster vaccine recombinant Abran OCHOA [facility] 09-21-2021 zoster vaccine recombinant Abran OCHOA [facility] 09-19-2021 tetanus toxoid, redu lester diphtheria toxoid, and acellular pertussis vaccine, adsorbed Abran OCHOA [facility] 08-25-2021 influenza virus vacc ine, unspecified formulation Abran OCHOA [facility] 06-25-2021 influenza virus vacc ine, unspecified formulation Abran OCHOA [facility] 06-25-2021 Influenza, Seasonal, Quadrivalent, Adjuvanted Generic Provider [facility] 06-25-2021 SARS-CoV-2 (COVID-19 ) mRNA BNT-162b2 vax Abran OCOHA [facility] Comment on above: Result Comment: 2022: [id number] 11-14-2020 SARS-CoV-2 (COVID-19 ) mRNA BNT-162b2 vax Abran OCHOA [facility] Comment on above: Result Comment: 2022: [id number] 10-24-2020 SARS-CoV-2 (COVID-19 ) mRNA BNT-162b2 vax Abran OCHOA [facility] Comment on above: Result Comment: 2022: [id number] 07-03-2020 influenza, high dose seasonal, preservative-free Generic Provider [facility] 06-28-2020 influenza virus vacc ine, unspecified formulation Abran OCHOA [facility] 07-02-2019 influenza virus vacc ine, unspecified formulation Abran OCHOA [facility] 07-02-2019 pneumococcal conjuga te vaccine, 13 valent Abran OCHOA [facility] 07-02-2019 Seasonal trivalent influenza vaccine, adjuvanted, preservative free Generic Provider [facility] 06-29-2018 influenza virus vacc ine, unspecified formulation Abran OCHOA [facility] 06-29-2018 Seasonal trivalent influenza vaccine, adjuvanted, preservative free Generic Provider [facility] 06-21-2017 influenza virus vacc ine, unspecified formulation Abran OCHOA [facility] 08-18-2015 influenza virus vacc ine, unspecified formulation Abran OCHOA [facility] 08-18-2015 influenza, high dose seasonal, preservative-free Generic Provider [facility] 06-23-2014 influenza virus vacc ine, unspecified formulation Abran OCHOA [facility] 06-23-2014 influenza, seasonal, injectable, preservative free Generic Provider [facility] 07-01-2013 influenza virus vacc ine, unspecified formulation Abran OCHOA [facility] 07-01-2013 zoster vaccine, live Abran OCHOA [facility] 10-05-2009 pneumococcal polysaccharide vaccine, 23 valent Generic Provider [facility] Payers Date Payer Category Payer Self-pay 2022 Private Health Insurance [id number] 2006 Medicare [id number] 1959 Medicare [id number] 1959 Private Health Insurance [id number] 1940 Unknown [id number] [id number] 1941 Unknown [id number] 2.16.840.1.685644.3.579.2.593 1941 Unknown [id number] 2.16.840.1.893454.3.579.2.1259 1941 Unknown [id number] 2.16.840.1.747468.3.579.2.1259 1941 Unknown [id number] 2.16.840.1.560831.3.579.2.1259 1941 Unknown [id number] 2.16.840.1.734792.3.579.2.1259 1941 Unknown [id number] 2.16.840.1.847022.3.579.2.727 1941 Unknown [id number] 2.16.840.1.571341.3.579.2.727 1941 Unknown [id number] 2.16.840.1.726254.3.579.2.727 1941 Unknown [id number] 2.16.840.1.145556.3.579.2.727 1941 Unknown [id number] 2.16.840.1.673514.3.579.2.727 1941 Unknown [id number] 2.16.840.1.162532.3.579.2.727 1941 Unknown [id number] 2.16.840.1.878909.3.579.2.727 1941 Unknown [id number] 2.16.840.1.212268.3.579.2.727 Unknown Insurance No [facility] [id number] Unknown [id number] 2.16.840.1.664581.3.579.2.531 Unknown [id number] 2.16.840.1.445967.3.579.2.531 Social History Date Type Detail Facility Start: 09-01-2020 End: 07-04-2024 Tobacco smoking status Never smoked tobacco (finding) [facility] Tobacco smoking status Never [facility] Start: 02-16-2023 End: 11-14-2023 Sex Assigned At Male [facility] Start: 1940 Sex Assigned At Male [facility] Start: 02-16-2023 End: 11-12-2023 Tobacco use and exposure Smokeless tobacco non-user [facility] Start: 02-16-2023 End: 09-19-2023 Alcohol intake Ex-drinker (finding) [facility] Start: 1940 Sex Assigned At Not on file [facility] Start: 02-16-2023 End: 11-14-2023 History of Social function [facility] Goals Date Patient Goal Desired Activity /State Functional Status Date Assessment Result Facility 07-04-2024 Functional Status N/A [facility] 12-28-2023 Functional Status N/A [facility] 10-08-2023 Functional Status N/A [facility] 02-05-2023 Functional Status N/A [facility] 12-04-2022 Functional Status N/A [facility] Clinical Notes 02-23-2022 to 07-04-2024 Jc Mendiola MD - 04/10/2024 9:45 AM Nichelle Hart RN - 04/10/2024 9:32 AM Nichelle Hart RN - 04/10/2024 9:32 AM Jc Quezada MD - 09/06/2023 3:06 PM EST Note Date & Type Note Facility 07-04-2024 Hospital Discharge instructions Patient Education 07/04/2024 10:18:42 Prostate Cancer Prostate Cancer The prostate is [...] under a microscope. This is called the Forreston score and the total score can range from 6 10, indicating how likely it is that the cancer will spread (metastasize) to other parts of the body. The higher the score, the greater the likelihood that the cancer will spread. Forreston 6 or lower: This indicates that the cancer cells look similar to normal prostate cells (well differentiated). Forreston 7: This indicates that the cancer cells [...] stress of having cancer. General instructions Take kbup-qvx-hyekycn and prescription medicines only as told by your health care provider. If you have to go to the hospital, notify your cancer specialist (oncologist). Keep all follow-up visits. This is important. Where to find more information Canadian Cancer Society: www.cancer.org Canadian Society of Clinical Oncology: www.cancer.net National Cancer [place]: www.cancer.gov Contact a health care provider if: [...] provider. Document Revised: 12/07/2021 Document Reviewed: 12/07/2021 [employer] Patient Education 2023 [employer]. Follow Up Care 12/28/2023 08:57:43 With:LADAN EDWARDS, Abran Darling, URL Address: [facility] [address] [place] [address]- When: Unknown [facility] [place] 07-04-2024 Note Patient Education Oncology Prostate Cancer The prostate [...] under a microscope. This is called the Forreston score and the total score can range [...] to normal prostate cells (moderately differentiated). ? Forreston 8, 9, or 10: This indicates that [...] tubes that are implanted into the prostate gla (more content not included)... [facility] 04-10-2024 History of Present illness Narrative Radiation [...] ASSESSMENT/PLAN: Prostate adenocarcinoma, initial PSA 3.1, biopsy Forreston score 3 + 4 = 7 (grade [...] Mendiola MD cc: Martir Herbert II, MD [address] [place] [address] Dr. Ochoa documented in this encounter [facility] 04-10-2024 Note HNO ID: [id number] Author: Jc MENDIOLA MD Service: ? Author [...] ASSESSMENT/PLAN: Prostate adenocarcinoma, initial PSA 3.1, biopsy Forreston score 3 + 4 = 7 (grade [...] Mendiola MD cc: Martir Herbert II, MD [address] [place] [address] Dr. Ochoa [facility] 04-10-2024 Nurse Note LAY 4 Nichelle Elkins RN [facility] 04-10-2024 Nurse Note LAY 4 Nichelle Elkins RN documented in this encounter [facility] 12-28-2023 Hospital Discharge instructions Patient Education [...] urethra. Follow these instructions at home: Take loxg-xfv-zepmgrn and prescription medicines only as told by [...] provider. Document Revised: 03/29/2022 Document Reviewed: 03/29/2022 [email or web address] Patient Education 2022 [employer]. Follow Up Care 12/04/2022 12:55:53 With:LADAN EDWARDS, Abran Darling, URL Address: [address] [place] [address]- When: Unknown [facility] [place] 10-11-2023 Note HNO ID: [id number] Author: Jc MENDIOLA MD Service: ? Author [...] MD cc: Martir Herbert II, MD [address] [place] [address] Dr. Ochoa [facility] 10-08-2023 Hospital Discharge instructions Patient [...] treat constipation, you may need to: Take lptu-yjr-bntrhnp or prescription medicines. Eat foods that are high in fiber, such as beans, whole grains, and fresh fruits and vegetables. Limit foods that are high in fat and processed sugars, such as fried or sweet foods. General instructions Take eupu-ivx-ksntxmq and prescription medicines only as told by [...] provider. Document Revised: 12/07/2021 Document Reviewed: 12/07/2021 [email or web address] Patient Education 2022 [employer]. Follow Up Care 06/26/2023 12:00:57 With:LADAN EDWARDS, Abran Darling, URL Address: [facility] [address] , [place] [address] [phone] When: Unknown Comments:3 mos w/ PSA [facility] 10-03-2023 Note HNO ID: [id number] Author: Jc MENDIOLA MD Service: ? Author Type: Physician Type: Progress Notes Filed: 10/12/2023 11:35 Note Text: Patient: Jose Can Date:10/03/2023 [facility] Department of Radiation Oncology [facility] RADIATION ONCOLOGY POST SEED IMPLANT SIMULATION NOTE [...] Electronically Signed CHIRAG MENDIOLA M.D. 1:35 AM [facility] 09-19-2023 Note HNO ID: [id number] Author: Jc Mendiola MD Service: ? 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 [facility] 09-06-2023 Note HNO ID: [id number] Author: Jc Mendoila MD Service: ? Author Type: Physician Type: Progress Notes Filed: 09/06/2023 3:18 PM Note Text: Date: 09/06/23 Facility: [facility] Procedure: prostate transperineal brachytherapy implant Diagnosis: [...] activity seen, results documented. Edilma Mendiola MD [facility] 09-06-2023 History of Present illness Narrative Date: 09/06/23 Facility: [facility] Procedure: prostate transperineal brachytherapy implant Diagnosis: [...] activity seen, results documented. Edilma Mendiola MD [facility] documented in this encounter [facility] 08-25-2023 Note HNO ID: [id number] Author: Jc Mendiola MD Service: ? Author Type: Physician Type: Progress Notes Filed: 09/06/2023 12:36 AM Note Text: JOSE CAN [id number] 08/25/2023 [facility] Department of Radiation Oncology [facility] RADIATION ONCOLOGY BRACHYTHERAPY TREATMENT PLANNING NOTE For [...] Chirag Mendiola M.D. / NATY :42 PM [facility] 07-25-2023 Miscellaneous Notes Enriqueta, pt's [...] Debra Quinn RN documented in this encounter [facility] 07-12-2023 Note HNO ID: [id number] Author: Jc Mendiola MD Service: ? Author [...] Visit completed when applicable. Jc Mendiola MD [facility] 07-11-2023 History of Present illness Narrative RUSLAN CANH [id number] 07/11/2023 [facility] Department of Radiation Oncology [facility] RADIATION ONCOLOGY SIMULATION NOTE DATE OF SIMULATION: 07/11/2023 MACHINE: Rev Focus 500 Diagnosis: 185 (Prostate Gland) AREA:Prostate PATIENT POSITION: Supine CONTRAST: None PROTOCOL: None CONCURRENT THERAPY: None FIXATION DEVICE: UTS Stabilization device by [employer]. PROCEDURE: Patient was simulated in exaggerated dorsal lithotomy position. Serial images of the prostate were acquired using TRUS and reconstructed in 3D space. These images were imported into [employer] Prostate planning system where a plan was generated. ASSESSMENT/PLAN: Patient tolerated simulation procedure well. Electronically Signed Chirag Mendiola M.D. / NATY :19 PM documented in this encounter [facility] 07-11-2023 Note HNO ID: [id number] Author: Jc Mendiola MD Service: ? Author Type: Physician Type: Progress Notes Filed: 07/12/2023 12:35 AM Note Text: CAN JOSE [id number] 07/11/2023 [facility] Department of Radiation Oncology [facility] RADIATION ONCOLOGY SIMULATION NOTE DATE OF SIMULATION: 07/11/2023 MACHINE: Rev Focus 500 Diagnosis: 185 (Prostate Gland) AREA:Prostate PATIENT POSITION: Supine CONTRAST: None PROTOCOL: None CONCURRENT THERAPY: None FIXATION DEVICE: UTS Stabilization device by [employer]oon[employer]on. PROCEDURE: Patient was simulated in exaggerated dorsal lithotomy position. Serial images of the prostate were acquired using TRUS and reconstructed in 3D space. These images were imported into [employer] Prostate planning system where a plan was generated. ASSESSMENT/PLAN: Patient tolerated simulation procedure well. Electronically Signed Chirag Mendiola M.D. / NATY :19 PM [facility] 05-29-2023 Procedure note [facility] 05-03-2023 Miscellaneous Notes Patients daughter [...] colonoscopy was done per Dr Franco at [facility] in [address]. [address] Mendiola-- please advise. Nichelle Elkins RN documented in this encounter [facility] 02-05-2023 Hospital Discharge instructions Patient Education [...] similar to normal prostate cells (moderately differentiated). Forreston 8, 9, or 10: This indicates that [...] stress of having cancer. General instructions Take szzu-ips-uiicijo and prescription medicines only as told by your health care provider. If you have to go to the hospital, notify your cancer specialist (oncologist). Keep all follow-up visits. This is important. Where to find more information Canadian Cancer Society: www.cancer.org Canadian Society of Clinical Oncology: www.cancer.net National Cancer [place]: www.cancer.gov Contact a health care provider if: [...] provider. Document Revised: 12/07/2021 Document Reviewed: 12/07/2021 [email or web address] Patient Education 2022 [employer]. Follow Up Care 01/04/2023 12:26:51 With:LADAN EDWARDS, Abran Darling, URL Address: [facility] [address] , [place] [address] [phone] When:Within 6 Month(s) Comments:Will refer to Dr. Mendiola [facility] Hospital Discharge instructions Patient Education 01/16/2023 [...] for your post-operative appointment in 1-2 weeks [phone] or [phone] Follow Up Care 01/04/2023 11:45:40 With:Abran OCHOA Address: [facility] [address] [place] [address]- Business (1) When: Unknown Comments:Keep scheduled appointment [facility] 12-04-2022 Hospital Discharge instructions Patient Education [...] urethra. Follow these instructions at home: Take koxr-fsp-bkgjstv and prescription medicines only as told by [...] 09/10/2006 Document Revised: 08/05/2019 Document Reviewed: 10/15/2017 [email or web address] Patient Education 2020 [employer]. Follow Up Care 09/22/2022 08:10:59 With:Abran OCHOA MD, URL Address: [facility] [address] [place] [address]- When: Unknown [facility] 02-23-2022 Hospital Discharge instructions Follow Up Care 02/23/2022 13:31:33 With:Abran OCHOA MD, URL Address: [address] [place] [address] [place] [address]- When: Unknown [facility] Evaluation + Plan note Future Appointments Appointment Date:12/04/2022 12:15:00 PM Scheduled Provider:Abran OCHOA MD [facility] Appointment Type:URO Office Visit [facility] Evaluation + Plan note Future Appointments Appointment Date:12/07/2023 08:00:00 AM Scheduled Provider:Abran OCHOA MD Location:[facility] Appointment Type:URO Office Visit [facility] Evaluation + Plan note Future Appointments Appointment Date:02/05/2023 08:30:00 AM Scheduled Provider:Abran OCHOA MD Location:[facility] Appointment Type:URO Office Visit Appointment Date:12/07/2023 08:00:00 AM Scheduled Provider:Abran OCHOA MD Location:[facility] [place] Appointment Type:URO Office Visit Diagnostic Tests PendingProstate Histology ([facility]) 01/16/23 [facility] Evaluation + Plan note Future Appointments Appointment Date:12/07/2023 08:00:00 AM Scheduled Provider:Abran OCHOA MD Location:[facility] Appointment Type:URO Office Visit Diagnostic Tests PendingPSA Total 02/05/23 [facility] Evaluation + Plan note Future Appointments Appointment Date:10/08/2023 09:30:00 AM Scheduled Provider:Abran OCHOA MD Location:[facility] Appointment Type:URO Office Visit Appointment Date:12/07/2023 08:00:00 AM Scheduled Provider:Abran OCHOA MD Location:[facility] Appointment Type:URO Office Visit [facility] Evaluation + Plan note Future Appointments Appointment Date:12/28/2023 08:00:00 AM Scheduled Provider:Abran OCHOA MD Location:[facility] Appointment Type:URO Office Visit Diagnostic Tests PendingPSA Total 10/08/23 [facility] Evaluation + Plan note Future Appointments Appointment Date:07/04/2024 09:15:00 AM Scheduled Provider:Abran OCHOA MD Location:[facility] Appointment Type:URO Office Visit Diagnostic Tests PendingPSA Total 04/24/24 [facility] Evaluation + Plan note Future Appointments Appointment Date:07/06/2025 08:45:00 AM Scheduled Provider:Abran OCHOA MD Location:[facility] Appointment Type:URO Office Visit [facility] Evaluation note No assessment inform ation available [facility] Work Phone: Evaluation note Diagnosis Rectal bleeding- Primary Hemorrhage of rectum and anus Constipation, unspecified constipation type Prostate cancer (HCC) Malignant neoplasm of prostate [facility] Malignant neoplasm of prostate (HCC)- Primary Malignant neoplasm of prostate [facility] Diagnosis Onset Date Resolution Status Temporal arteritis acute [facility] Work Phone: Evaluation note* Diagnosis Malignant neoplasm of prostate (HCC)- Primary Malignant neoplasm of prostate [facility] Author Juan Jiang [facility] May 29, 2023 8:21am Note Date/Time May 29, 2023 8:21am [facility] [address] [place] [address] Gastroenterology H&P Signed Patient: Jose Can MR#: [id number] : 1940 Acct:[id number] Age/Sex: 82 / M Adm Date: 3 Loc: Room: Type: [facility] Attending Dr: Juan Jiang MD Copies [...] <Electronically signed by Juan Jiang MD> 05/29/23820 [facility] Work Phone: Hospital course Narrative No data available for this section [facility] Hospital Discharge instructions Additional Instructions [...] NOT operate machinery such as power tools, [employer] mowers, snow blowers, sewing machines, etc. for [...] years. -Follow up with PCP. -Office number [phone]. [facility] Work Phone: Hospital Discharge instructions No data available for this section [facility] progress note No data available for this section [facility] reason for referral (narrative) , Refer to Dr. Mendiola for [employer] Referred by: LADAN EDWARDS, Abran Darling [facility] Summary Purpose Family History Relationship Condition Age [...] section and content) DATE CREATED AUTHOR 09/22/2021 [facility] dical Specialist DATE CREATED AUTHOR AUTHOR'S ORGANIZ ATION 10/18/2022 [facility] DATE CREATED AUTHOR AUTHOR'S ORGANIZ ATION 02/09/2024 [facility] DATE CREATED AUTHOR AUTHOR'S ORGANIZ ATION 03/27/2024 [facility] dical Specialists EPIC DATE CREATED AUTHOR AUTHOR'S ORGANIZ ATION 04/16/2024 [facility] DATE CREATED AUTHOR AUTHOR'S ORGANIZ ATION 07/06/2024 [facility] Patient Care team informatio n (unrecognized section and content) Personnel Name: MARTIR HERBERT MD Address: Address: [address] [place] [address] Team Status: Active Member Role Status Dates Martir Herbert II MD Primary Care Provider Active Team Status: Inactive Member Role Status Dates Martir Herbert II MD Primary Care Provider Active Abran Ochoa MD Attending Provider Active Monogram Machine Operator Relationship Specialty Start Date End Date Martir Herbert II [address] [facility] [address] [place] [address] PCP - General Internal Medicine 02/06/23 Monogram Machine Operator Relationship Specialty Start Date End Date Martir Herbert II, MD [address] [place] [address] PCP - General Internal Medicine 02/06/23 Team Status: Inactive Member Role Status Dates Martir Herbert II MD Primary Care Provider Active Juan Jiang MD Attending Provider Active Monogram Machine Operator Relationship Specialty Start Date End Date Martir Herbert II, MD [address] [place] [address] PCP - General Internal Medicine 02/06/23 Monogram Machine Operator Relationship Specialty Start Date End Date Martir Herbert II, MD [address] [place] [address] PCP - General Internal Medicine 02/06/23 Monogram Machine Operator Relationship Specialty Start Date End Date Martir Herbert II, MD [address] [place] [address] PCP - General Internal Medicine 02/06/23 Monogram Machine Operator Relationship Specialty Start Date End Date Martir Herbert II, MD [address] [place] [address] PCP - General Internal Medicine 02/06/23 Team [...] Other Provider Active Start: December 19, 2023 Monogram Machine Operator Relationship Specialty Start Date End Date Martir Herbert II, MD [address] [place] [address] PCP - General Internal Medicine 02/06/23 Monogram Machine Operator Relationship Specialty Start Date End Date Martir Herbert MD [address] [facility] [place] [address] PCP - ACO Reach 02/15/23 Martir Herbert MD [address] [facility] [address] [place] [address] PCP - General Internal Medicine 01/30/23 Goals (unrecognized section and content) Goals may be documented in a n alternate section Source Comments (unrecognize d section and content) In the event this informatio n is protected by the Federal Confidentiality of Alcohol and Drug Abuse Patient Records regulations: The Federal rules restrict any use of the information to criminally investigate or prosecute any alcohol or drug abuse patient.[facility] the event this information is protected by the Federal Confidentiality of Alcohol and Drug Abuse Patient Records regulations: The Federal rules restrict any use of the information to criminally investigate or prosecute any alcohol or drug abuse patient.[facility] the event this information is protected by the Federal Confidentiality of Alcohol and Drug Abuse Patient Records regulations: The Federal rules restrict any use of the information to criminally investigate or prosecute any alcohol or drug abuse patient.[facility] the event this information is protected by the Federal Confidentiality of Alcohol and Drug Abuse Patient Records regulations: The Federal rules restrict any use of the information to criminally investigate or prosecute any alcohol or drug abuse patient.[facility] the event this information is protected by the Federal Confidentiality of Alcohol and Drug Abuse Patient Records regulations: The Federal rules restrict any use of the information to criminally investigate or prosecute any alcohol or drug abuse patient.[facility] the event this information is protected by the Federal Confidentiality of Alcohol and Drug Abuse Patient Records regulations: The Federal rules restrict any use of the information to criminally investigate or prosecute any alcohol or drug abuse patient.[facility] the event this information is protected by the Federal Confidentiality of Alcohol and Drug Abuse Patient Records regulations: The Federal rules restrict any use of the information to criminally investigate or prosecute any alcohol or drug abuse patient.[facility] the event this information is protected by the Federal Confidentiality of Alcohol and Drug Abuse Patient Records regulations: The Federal rules restrict any use of the information to criminally investigate or prosecute any alcohol or drug abuse patient.[facility] the event this information is protected by the Federal Confidentiality of Alcohol and Drug Abuse Patient Records regulations: The Federal rules restrict any use of the information to criminally investigate or prosecute any alcohol or drug abuse patient.[facility] Reason for Visit (unrecogniz ed section [...] BE BASED ON THE PRIMARY CLINICAL RECORDS. [facility]. provides no warranty or guarantee of the accuracy or completeness of information in this document.
[2024-07-14 11:06] LABS: Erythrocyte Sedimentation Rate 35 mm/hr (<=20)
[2024-07-14 11:28] LABS: C Reactive Protein <0.50 mg/dL (<=0.50)
== END 2024-07-14 09:15 | disposition home or self-care (01) ==
LOC: LAB 09:14
PROVIDERS: PCP Internal Medicine; Visit Provider Internal Medicine Rheumatology
DX: M31.6 Other giant cell arteritis (principal); M19.90 Unspecified osteoarthritis, unspecified site; Z51.81 Encounter for therapeutic drug level monitoring; Z79.899 Other long term (current) drug therapy
CPT/HCPCS: 36415; 85652; 86140

== ENCOUNTER 2024-09-25 06:53 | Outpatient (OUT) | payer MEDICARE, OTHER, SELFPAY ==
--- OUTSIDE RECORDS SUMMARY | 2024-09-25 06:56 | XMS_ITS | CCD ---
Author Organization [facility] Care Team Providers Care Mixing Technician Name Role Phone MARTIR HERBERT Primary Care Physician DR MARTIR HERBERT Admitting Unavailable KEON, DR POPE Primary Care Unavailable KEON, DR POPE Consulting Unavailable KEON, DR POPE Attending Unavailable LADAN, DR OSULLIVAN Attending Unavailable KEON, DR POPE Primary Care Unavailable LADAN, DR OSULLIVAN Admitting Unavailable LADAN, DR OSULLIVAN Consulting Unavailable MANGO Herbert Primary Care Provider MD Abran Ochoa Attending Provider [phone] Martir Herbert II Primary Care Provider Keon COBIAN MD, Daniel B Primary Care Provider MANGO Herbert Primary Care Provider MD Juan Jiang Attending Provider [phone] MANGO Herbert Primary Care Provider MD Armani Kelly Attending Provider Martir Herbert [...] Unavailable MARTIR HERBERT II Primary Care Unavailable OCHOA, Abran R Attending Unavailable OCHOA, Abran R Attending Unavailable OCHOA, Abran R Attending Unavailable OCHOA, Abran R Attending Unavailable OCHOA, Abran R Attending Unavailable OCHOA, Abran R Attending Unavailable OCHOA, Abran R Attending Unavailable OCHOA, Abran R Attending Unavailable Martir Herbert MD Unavailable Martri Herbert MD Primary Care Provider Allergies Allergy Classification Reported Allergen(s) Allergy Type Date of Onset Reaction(s) Facility (10 sources) Penicillin; Translations: [penicillin] Drug Allergy Unknown (qualifier value) [facility] (10 sources) Sulfonamides; Translations: [sulfonamides] Drug allergy Unknown (qualifier value) [facility] (5 sources) Penicillins; Translations: [PENICILLINS] Drug allergy (disorder) [address] [facility] (1 source) Sulfonamides (Antibiotic) Drug allergy (disorder) [address] [facility] (9 sources) Penicillins Drug Allergy 3 [facility] (15 sources) Sulfonamides (Antibiotic); Translations: [SULFA (SULFONAMIDE ANTIBIOTICS)] Drug Allergy 3 [facility] (1 source) Penicillins Drug allergy (disorder) 4 [facility] (1 source) Sulfonamides (Antibiotic) Drug allergy (disorder) 4 [facility] (3 sources) Penicillins Drug Allergy 3 Hives, Rash, Unknown [facility] Medications Current Medications Medication Drug Class(es) Dates Sig (Normalized) Sig (Original) acetaminophen 325 mg / HYDROcodone bitartrate 7.5 mg oral tablet (1 source) Opioid Agonist Start: 01-04-2023 take 1 tablet by mouth once, then take 1 tablet by mouth every hour Joanna 325 mg-7.5 mg oral tablet 1 tab(s), Oral, Once, 1 tab(s), Refill(s) 0, Take 1 hour prior to procedure, [facility]/pharmacy #[id number], 175, cm, 03/13/23 12:29:00 EDT, Height/Length Dosing, 89, kg, 12/04/22 12:29:00 EDT, Weight Dosing Start Date: 01/04/23 Status: Ordered aspirin 81 mg delayed release oral tablet (15 sources) Platelet Aggregation Inhibitor, Nonsteroidal Anti-inflammatory Drug Start: 05-29-2023 take 1 tablet by mouth in the morning aspirin 81 MG EC tablet Take 81 mg by mouth in the morning. 05/29/2023 Active Comment on above: Take 81 mg by mouth once daily. calcium citrate 950 mg oral tablet (12 sources) calcium citrate (Calcitrate) 950 (200 Ca) MG tablet Take 200 mg by mouth in the morning. Active calcium citrate (CITRACAL ORAL) Take by mouth. Active calcium citrate (CITRACAL ORAL) Take by mouth. 0 Active Comment on above: Take by mouth. cholecalciferol 0.025 mg oral tablet (3 sources) Vitamin D take 1 tablet by mouth [...] by mouth. furosemide 20 mg oral tablet (3 sources) Loop Diuretic Start: 04-21-2024 take 1 tablet [...] 10/28/19 Status: Ordered omega-3 acid ethyl esters (correction) 1000 mg oral capsule (15 sources) Start: 01-05-2023 take 1 capsule by [...] ement oxybutynin chloride 5 mg oral tablet (6 sources) Cholinergic Muscarinic Antagonist Start: take 1 tablet by mouth at bedtime as needed oxybutynin 5 mg Tab 5 mg = 1 tab(s), Oral, Bedtime, PRN for urinary discomfort, # 30 tab(s), Refills(s) 11, Pharmacy: [facility]/pharmacy #[id number], 175, cm, 12/28/23 8:09:00 EDT, Height/Length [...] Start: 01-05-2023 take 1 tablet by dot th once daily at bedtime simvastatin (ZOCOR) 10 mg tablet Take 10 mg by mouth daily at bedtime. 01/05/2023 Active Start: 10-28-2019 simvastatin Re fills(s) 0 Start Date: 10/28/19 Status: Ordered Vit D3-Vit K2-[place] Ext (3 sources) Start: 05-29-2023 take 1 capsule by mouth once daily Vit D3-Vit K2-[place] Ext Active 25 CAP PO Daily May 29, 2023 12:00am Vitamins A,C,W-Snct-Hkydfn (Preservision Areds) 4,296 mcg-226 mg-90 mg capsule (2 sources) Start: 12-18-2023 take 1 capsule by mouth twice daily Vitamins A,C,L-Rlsi-Evlggt (Preservision Areds) 4,296 mcg-226 mg-90 mg capsule Active 1 CAP PO Twice daily December 18, 2023 12:00am Problems Active Problems Problem Classification Problem Date Documented Da te Episodic/Chronic Cancer of prostate (14 sources) Malignant neoplasm of prostate; Translations: [Malignant tumor of prostate] Onset: 02-05-2023 Chronic Cancer; other and unspecified primary (9 sources) H/O Malignant melanoma 10-28-2019 Episodic Disorders of lipid metabolism (7 sources) Mixed hyperlipidemia; Translations: [Mixed hyperlipidemia] Onset: 03-04-2022 Chronic Essential hypertension (3 sources) Benign essential hypertension; Translations: [Essential (primary) hypertension] Onset: 05-28-2023 05-28-2023 Chronic Gastrointestinal hemorrhage (1 source) Rectal hemorrhage; Translations: [Hemorrhage of anus and rectum] 05-03-2023 Episodic Heart valve disorders (3 sources) Nonrheumatic aortic (valve) stenosis; Translations: [Aortic valve disorders] Onset: 12-06-2023 12-06-2023 Chronic Osteoarthritis (3 sources) Osteoarthritis of joint of right hand; Translations: [Primary osteoarthritis, right hand] Onset: 11-12-2023 11-12-2023 Chronic Other gastrointestinal disorders (1 source) Constipation; Translations: [Constipation, unspecified] 05-03-2023 Episodic Systemic lupus erythematosus and connective tissue disorders (6 sources) Temporal arteritis; 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] Onset: 12-19-2023 12-18-2023 Chronic Unclassified (1 source) Encounter for screening for malignant neoplasm of colon; Translations: [Encounter for screening for malignant neoplasm of colon] Onset: 05-29-2023 Past or Other Problems Problem Classification Problem Date Documented Da te Episodic/Chronic Abdominal hernia (3 sources) Left inguinal hernia ; Translations: [Unilateral inguinal hernia, without obstruction or gangrene, not specified as recurrent] Onset: 11-12-2023 11-12-2023 Episodic Genitourinary symptoms and ill-defined conditions (20 sources) Increased frequency of urination; Translations: [Retention of urine] Onset: 10-08-2023 Resolved: 11-14-2023 09-01-2020 Episodic Hyperplasia of prostate (20 sources) Benign prostatic hypertrophy with outflow obstruction; Translations: [Prostate nodule] Onset: 10-04-2009 Resolved: 11-14-2023 10-28-2019 Chronic Other male genital disorders (3 sources) Dysplasia of prostate; 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] Onset: 06-15-2005 Resolved: 11-14-2023 11-14-2023 Episodic Other nutritional; endocrine; and metabolic disorders (12 sources) Body mass index 25-29 - overweight; Translations: [Overweight] Onset: 11-12-2023 09-01-2020 Episodic Other screening for suspected conditions (not mental disorders or infectious disease) (17 sources) Raised prostate specific antigen; Translations: [Elevated prostate specific antigen [PSA]] Onset: 10-17-2022 09-01-2020 Episodic Other skin disorders (3 sources) Chronic folliculitis; Translations: [Follicular disorder, unspecified] Onset: 11-12-2023 11-12-2023 Episodic Results Test Name Value Interpretation Reference Range Facility ALL SED RATEon 07-14-2024 Interpretation and review of laboratory results Abnormal [facility] SED RATE 35 High NINF [facility] Urology Office/Clinic Noteon 07-04-2024 Urology Office/Clinic Note [...] [facility] [address], [place] [address]- Additional Instructions: 1 yr with PSA from [...] virus vaccine, inactivated 08/13/2022 Recorded SARS-CoV-2 (COVID-19) [id number] 08/13/2022 Recorded zoster vaccine, inactivated 12/18/2021 Recorded zoster vaccine, inactivated 09/21/2021 Recorded diphtheria/pertussis, acel/tetanus adult 09/19/2021 Recorded influenza (more content not included)... Normal [facility] Comment on above: Result Comment: Elec tronically Signed By: Abran OCHOA MD\.br\Date and Time Signed: 07/04/24 10:24 EDT\.br\Electronically Co-Signed By: Debi Vidal\.br\Date and Time Co-Signed: 07/04/24 10:22 EDT MHPT PSA, DIAGNOSTICon 07-01 PROSTATE SPECIFIC ANTIGEN DX 0.30 ng/mL NINF - 4.00 ng/mL [facility] ALL SED RATEon 05-27-2024 [facility] SED RATE 9 NINF [facility] CNOVon 04-10-2024 CNOV Office Visit (RADTSA ) JOSE CAN ([id number]) 1940 M Date Time Provider Department 04/10/24 [...] DIAGNOSIS: Prostate adenocarcinoma, initial PSA 3.1, biopsy [place] score 3 + 4 = 7 (grade [...] ASSESSMENT/PLAN: Prostate adenocarcinoma, initial PSA 3.1, biopsy [place] score 3 + 4 = 7 (grade [...] Mendiola MD cc: Martir Herbert II, MD [address] [place] [address] Dr. Ochoa Allergies As of Date: 04/10/2024 Noted Allergy Reaction PENICILLINS 02/16/2023 2 - Rash SULFA (SULFONAMIDE ANTIBIOTICS) 02/16/2023 2 - Rash Date Reviewed: 04/10/2024 Reviewed by: Nichelle Elkins, NATALIO - Fully Assessed Primary Visit Diagnosis:Malignant neoplasm of prostate (HCC) [C61] Order(s):PSA (OUTSIDE) [3159830] Order #: [id number] Prescriptions as of 04/14/2024 - predniSONE (DELTASONE) [...] 10/11/2023 Visit Notes: >> Nichelle Elkins RN [facility] Apr 10, 2024 9:32 AM Status: Signed AUA 4 Nichelle Elkins RN Disposition: Return in about 1 year (around 04/10/2025). Follow-up and Disposition History for Encounter Date Provider Department Center 04/10/2024 [id number] En[facility] Status:Closed by Jc MENDIOLA on 04/14/24 Normal [facility] Patient Educationon 12-28-19 Patient Education Urology Benign [...] Follow these instructions at home: ? Take iefp-oxo-ynbvcwf and prescription medicines only as told by [...] the medicine (more content not included)... Normal [facility] Urology Office/Clinic Noteon 12-28-2023 Urology Office/Clinic Note [...] (7 mm x 4mm) TRUS/bx 01/16/23 - [place] 7 (3+4) GG2. cT2a, N0, M0, stage [...] IO s/p brachytherapy. Pt then presented to [facility] ER due to inability to urinate after catheter removal. Bladder scan was >500mL. Dc'd home with Mendoza catheter in place. Came to our office 09/21/23 for catheter removal per approval of PRW. No issues with urination after Mendoza was removed. See #2. Follow-up With When Contact Information LADAN EDWARDS, Abran Darling, URL [address] [place] [address]- Additional Instructions: 6 mos w/ PSA Patient Education Benign Prostatic Hyperplasia IAgata, personally scribed for Dr. Ochoa on 12/28/2023 [...] Medications Co (more content not included)... Normal [facility] Comment on above: Result Comment: Elec tronically Signed By: Abran OCHOA MD\.br\Date and Time Signed: 12/28/23 08:53 EDT\.br\Electronically Co-Signed By: Agata Durant.br\Date and Time Co-Signed: 12/28/23 08:52 EDT Lab Reportson 12-24-2023 Lab Reports [id number] Normal [facility] PSA (OUTSIDE)on 12-24-2023 [facility] Anisocytosis LM Ql (Bld)Orde red By: Arden Marin on 12-19-2023 Anisocytosis Ql (Bld) Slight [facility] Basic Metabolic Panelon 11-23 Anion gap [Moles/Vol] 9.1 mmol/L Normal 6.0-15.[address] [facility] Comment on above: Performed By: #### S CAN CBC, BMP #### [facility] [address] Calcium [Mass/Vol] 8.5 mg/dL Low 8.6-10.[address] [facility] Comment on above: Performed By: #### S CAN CBC, BMP #### [facility] [address] [place] [address] [place] Chloride [Moles/Vol] 103 mmol/L Normal 98-[address] [facility] Comment on above: Performed By: #### S CAN CBC, BMP #### [facility] [address] [place] [id number] [place] CO2 [Moles/Vol] 26.0 mmol/L Normal 21.0-31.[address] [facility] Comment on above: Performed By: #### S CAN CBC, BMP #### [facility] [address] [place] [phone] [place] Creatinine [Mass/Vol] 0.74 mg/dL Normal 0.70-1.[address] [facility] Comment on above: Performed By: #### S CAN CBC, BMP #### [place] [address] [place] Creatinine Clr Calc Pharmacy 78.[address] [facility] Comment on above: Result Comment: PERF ORMED BY: [place] [address] PATHOLOGIST PHYSICIAN ASSISTANT CAREN DALEY M.D. Performed By: #### S CAN CBC, BMP #### [place] [address] [place] GFR/1.73 sq M.predicted MDRD (S/P/Bld) [Vol rate/Area] mL/min/{1.73_m2} Normal [facility] Comment on above: Performed By: #### S CAN CBC, BMP #### [place] [address] [place] Glucose [Mass/Vol] 88 mg/dL Normal 70-[address] [facility] Comment on above: Result Comment: [facility][note 2] Glucose Reference Range is dependent on time and content of last meal. Glucose of more than 200 mg/dL in a nonstressed, ambulatory subject supports the diagnosis of Diabetes Mellitus. ADA recommended reference range Performed By: #### S CAN CBC, BMP #### [place] [address] [place] Potassium [Moles/Vol] 4.1 mmol/L Normal 3.5-5.[address] [facility] Comment on above: Performed By: #### S CAN CBC, BMP #### [place] [address] [place] Sodium [Moles/Vol] 134 mmol/L Low 136-[address] [facility] Comment on above: Performed By: #### S CAN CBC, BMP #### [place] [address] [place] Urea nitrogen [Mass/Vol] 23 mg/dL Normal 7-[address] [facility] Comment on above: Performed By: #### S CAN CBC, BMP #### [place] [address] [place] Basophils Auto (Bld) [#/Vol] Ordered By: Arden Marin on 12-19-2023 Basophils (Bld) [#/Vol] 0.1 10*3/uL 0.0-0.2 [facility] Basophils/100 WBC Auto (Bld) Ordered By: Arden Marin on 12-19-2023 Basophils/100 WBC (Bld) 0.4 % . [facility] Calcium [Mass/volume] in Ser um or PlasmaOrdered By: Arden Marin on 12-19-2023 Calcium [Mass/Vol] 8.5 mg/dL 8.6-10.3 [facility] Carbon dioxide, total [Moles /volume] in Serum or PlasmaOrdered By: Arden Marin on 12-19-2023 CO2 [Moles/Vol] 26.0 mmol/L 21.0-31.0 [facility] Chloride [Moles/volume] in S jerry or PlasmaOrdered By: Arden Marin on 12-19-2023 Chloride [Moles/Vol] 103 mmol/L 98-107 [facility] Creatinine [Mass/volume] in Serum or PlasmaOrdered By: Arden Marin on 12-19-2023 Creatinine [Mass/Vol] 0.74 mg/dL 0.70-1.30 [facility] ECG 12 lead ECGon 12-19-2023 ECG 12 lead ECG [facility] [address] [place] [address] [place] [address] Electrocardiograph Report Signed Patient: Jose Can MR#: [id number] : 1940 Acct:[id number] Age/Sex: 83 / M ADM Date: 12/19/23 Loc: [place] Room: Type: [facility] Attending Dr: Armani Kelly MD Ordering [...] previous ECGs available Confirmed by CAROLA EDWARDS [id number] on 12/19/2023 6:51:43 AM Referred By: Electronically Signed By:ABRAN SRIVASTAVA MD [facility] Transcribed By: MUS Signed By Pal Srivastava MD 12/19/[address] [facility] Eosinophils Auto (Bld) [#/Vo [...] Glucose [Mass/Vol] 88 mg/dL 70-100 [facility] Comment on above: ADA recommended refe [...] [facility] Isaías 12-19-2023 L Specimen: [id number] Received: 12/19/23 [facility] Num: [id number] Spec Type: Surgical Subm Dr: Armani Kelly MD Tissues: A Artery Temporal- Biopsy (RT TEMPORAL ARTERY BX) Procedures: Trichrome/2, CD45/2, HE/20, Gross/Micro L4, CD20/2, CD3/2, CD68/2 Age/ Patient Sex Location Account Attending Physician CanJose Adriano 83/M [place] [id number] Armani Kelly MD SPEC NUM: [id number] RECD: 12/19/23 STATUS: RANDI CAPELLAN NUM: [id number] FAIZAN: 12/19/23 [facility] DR: Armani Kelly MD ENTERED: 12/19/[address] [facility] [address]: SPEC TYPE: Surgical DEPT: S ORDERED: [...] Clinical Information Right temporal arteritis -------- Specimen: [id number] Received: 12/19/23 Status: RANDI Danielscarey Num: [id number] Spec Type: Surgical Subm Dr: Armani Kelly MD Tissues: A Artery Temporal- Biopsy (RT TEMPORAL ARTERY BX) Procedures: Trichrome/2, CD45/2, HE/20, Gross/Micro L4, CD20/2, CD3/2, CD68/2 -------- Patient: Guillermo Cangarth Oh [id number] (Continued) -------- Specimen: [id number] Received: 12/19/23 (Continued) Signed (signature on file) Mee Bush MD 12/21/231838 -------- Specimen: [id number] Received: 12/19/23 Status: RANDI Capellan Num: [id number] Spec Type: Surgical Subm Dr: Armani Kelly MD Tissues: A Artery Temporal- Biopsy (RT TEMPORAL ARTERY BX) Procedures: Trichrome/2, CD45/2, HE/20, Gross/Micro L4, CD20/2, CD3/2, CD68/2 -------- Patient: Jose Can [id number] (Continued) -------- Specimen: [id number] Received: 12/19/23 (Continued) Gross Description Received fresh labeled with the patient's name, date of and temporal artery biopsy right is a 7.8 x 0.3 cm cabrera-pink tubular tissue with attached silver metal clips. Sectioning reveals a patent lumen. Entirely submitted in two cassettes labeled A1-A2. CPT Codes 05895 97777, [id number] -------- -------- Specimen: [id number] Received: 12/19/23 Status: RANDI Capellan Num: [id number] Spec Type: Surgical Subm Dr: Armani Kelly MD Tissues: A Artery Temporal- Biopsy (RT TEMPORAL ARTERY BX) Procedures: Trichrome/2, CD45/2, HE/20, Gross/Micro L4, CD20/2, CD3/2, CD68/2 -------- Patient: Jose Can Adriano [id number] (Continued) -------- Signed (signature on file) Matthew-Joni Bush MD 12/21/[address] [facility] Leukocytes [#/volume] correc claudia [...] 12-19-2023 MCHC (RBC) [Mass/Vol] 32.8 g/dL 32.5-35.6 [facility] MCV Auto (RBC) [Entitic vol] Ordered By: Arden Marin on 12-19-2023 MCV (RBC) [Entitic vol] 88.0 fL 83.5-101 [facility] Microcytes LM Ql (Bld)Ordere d By: Arden Marin on 12-19-2023 Microcytes Ql (Bld) Slight [facility] Monocytes Auto (Bld) [#/Vol] Ordered By: [...] 12-19-2023 Ovalocytes LM Ql (Bld) Slight Fi [facility] Platelet adequacy [Presence] in Blood by Light microscopyOrdered By: Arden Marin on 12-19-2023 Platelets LM Ql (Bld) Normal Normal [facility] Platelet mean volume Auto (B ld) [Entitic [...] on 12-19-2023 Potassium [Moles/Vol] 4.1 mmol/L 3.5-5.1 [facility] RBC Auto (Bld) [#/Vol]Ordere d By: Arden Marin on 12-19-2023 RBC (Bld) [#/Vol] 4.64 10*6/uL 3.90-5.60 [facility] RBC morphologyOrdered By: Kylah Marin on 12-19-2023 RBC morphology finding Nom (Bld) N/A [facility] Scan and CBCon 12-19-2023 Anisocytosis Ql (Bld) Slight Normal [facility] Comment on above: Performed By: #### S CAN CBC, BMP #### [facility] [address] [place] [address] [place] Basophils (Bld) [#/Vol] 0.1 10*3/uL Normal 0.0-0.[address] [facility] Comment on above: Performed By: #### S CAN CBC, BMP #### [facility] [address] [place] [address] [place] Basophils/100 WBC (Bld) 0.4 % Normal . [facility] Comment on above: Performed By: #### S CAN CBC, BMP #### [address] Eosinophils (Bld) [#/Vol] 0.1 10*3/uL Normal 0.0-0.[address] [facility] Comment on above: Performed By: #### S CAN CBC, BMP #### [address] Eosinophils/100 WBC (Bld) 0.3 % Normal . [facility] Comment on above: Performed By: #### S CAN CBC, BMP #### [address] Erythrocyte distribution width (RBC) [Ratio] 13.9 % Normal 12.0-14.[address] [facility] Comment on above: Performed By: #### S CAN CBC, BMP #### [address] Hematocrit (Bld) [Volume fraction] 40.8 % Normal 38.8-50.[address] [facility] Comment on above: Performed By: #### S CAN CBC, BMP #### [address] Hemoglobin (Bld) [Mass/Vol] 13.4 g/dL Normal 13.0-17.[address] [facility] Comment on above: Performed By: #### S CAN CBC, BMP #### [address] Large Platelets Slight Normal [facility] Comment on above: Result Comment: PERF ORMED BY: [place] [address] PATHOLOGIST PHYSICIAN ASSISTANT CAREN DALEY M.D. Performed By: #### S CAN CBC, BMP #### [address] Lymphocytes (Bld) [#/Vol] 2.9 10*3/uL Normal 1.00-4.[address] [facility] Comment on above: Performed By: #### S CAN CBC, BMP #### [address] Lymphocytes/100 WBC (Bld) 17.7 % Normal . [facility] Comment on above: Performed By: #### S CAN CBC, BMP #### [address] MCH (RBC) [Entitic mass] 28.9 pg Normal 27.5-35.[address] [facility] Comment on above: Performed By: #### S CAN CBC, BMP #### [address] MCV (RBC) [Entitic vol] 88.0 fL Normal 83.5-[address] [facility] Comment on above: Performed By: #### S CAN CBC, BMP #### [address] Mean Corpuscular HGB Conc 32.8 g/dL Normal 32.5-35.[address] [facility] Comment on above: Performed By: #### S CAN CBC, BMP #### [address] Microcytosis Slight Normal [facility] Comment on above: Performed By: #### S CAN CBC, BMP #### [address] Monocytes (Bld) [#/Vol] 1.3 10*3/uL High 0.0-0.[address] [facility] Comment on above: Performed By: #### S CAN CBC, BMP #### [address] Monocytes/100 WBC (Bld) 8.3 % Normal . [facility] Comment on above: Performed By: #### S CAN CBC, BMP #### [address] Neutrophils (Bld) [#/Vol] 11.9 10*3/uL High 1.8-7.[address] [facility] Comment on above: Performed By: #### S CAN CBC, BMP #### [address] Neutrophils/100 WBC (Bld) 73.3 % Normal . [facility] Comment on above: Performed By: #### S CAN CBC, BMP #### [address] NRBC% 0.1 /100{WBC} Normal 0-0.[address] [facility] Comment on above: Performed By: #### S CAN CBC, BMP #### [address] Ovalocytes Slight Normal [facility] Comment on above: Performed By: #### S CAN CBC, BMP #### [address] Platelet Estimate Normal Normal Normal [facility] Comment on above: Performed By: #### S CAN CBC, BMP #### [address] Platelet mean volume (Bld) [Entitic vol] 7.4 fL Normal 6.6-10.[address] [facility] Comment on above: Performed By: #### S CAN CBC, BMP #### [address] Platelet Morphology Normal Normal Normal [facility] Comment on above: Performed By: #### S CAN CBC, BMP #### [address] Platelets (Bld) [#/Vol] 364 10*3/uL Normal 150-[address] [facility] Comment on above: Performed By: #### S CAN CBC, BMP #### [address] Poikilocytosis Slight Normal [facility] Comment on above: Performed By: #### S CAN CBC, BMP #### [address] RBC (Bld) [#/Vol] 4.64 10*6/uL Normal 3.90-5.[address] [facility] Comment on above: Performed By: #### S CAN CBC, BMP #### [address] [place] [address] [facility] WBC (Bld) [#/Vol] 16.2 10*3/uL High 4.1-10.[address] [facility] Comment on above: Performed By: #### S CAN CBC, BMP #### [facility] [address] [id number] [facility] Serum or plasma anion gap de terminationOrdered By: Arden Marin on 12-19-2023 Anion gap [Moles/Vol] 9.1 mmol/L 6.0-15.0 [facility] Sodium [Moles/volume] in Ser um or PlasmaOrdered By: Arden Marin on 12-19-2023 Sodium [Moles/Vol] 134 mmol/L 136-145 [facility] Urea nitrogen [Mass/volume] in Serum or PlasmaOrdered By: Arden Marin on 12-19-2023 Urea nitrogen [Mass/Vol] 23 mg/dL 7-25 [facility] WBC Auto (Bld) [#/Vol]Ordere d By: Arden Marin on 12-19-2023 WBC (Bld) [#/Vol] 16.2 10*3/uL 4.1-10.5 [facility] Consultation Noteon 10-12-19 Consultation Note [id number]#1. 00TIFF Normal [facility] CNOVon 10-11-2023 CNOV Office Visit (RADTSA ) JOSE CAN ([id number]) 1940 M Date Time Provider Department 10/11/23 [...] ASSESSMENT/PLAN: Prostate adenocarcinoma, initial PSA 3.1, biopsy [place] score 3 + 4 = 7 (grade [...] MD cc: Martir Herbert II, MD [address] [place] [id number] Debra Anthony LPN 10/11/2023 9:38 AM Signed AUA= 5 Allergies As of Date: 10/11/2023 Noted Allergy Reaction PENICILLINS 02/16/2023 2 - Rash SULFA (SULFONAMIDE ANTIBIOTICS) 02/16/2023 2 - Rash Date Reviewed: 09/19/2023 Reviewed by: Debra Quinn LPN - Fully Assessed Primary Visit Diagnosis:Malignant neoplasm of prostate (HCC) [C61] Order(s):PSA (OUTSIDE) [1535932] Order #: [id number] PSA/PROSTSPECAG DIAG [SQPSA] Order #: [id number] FUTURE Prescriptions as of 10/11/2023 - simvastatin [...] 10/11/2023 Visit Notes: >> Debra Quinn LPN [facility] Oct 11, 2023 9:26 AM Status: Signed AUA= 5 Disposition: Return in about 6 months (around 04/10/2024). Follow-up and Disposition History for Encounter Date Provider Department Center 10/11/2023 [id number] MENDIOLA Encounter Status:Closed by Jc MENDIOLA CHIRAG on 10/11/[address] [facility] Consultation Noteon 10-09-19 Consultation Note [id number]# 1.00TIFF [facility] ED Note-Physicianon 10-09-19 ED Note-Physician [id number]#1. 00TIFF [facility] Ambulatory Visit Summaryon 0 10-08-2023 Ambulatory Visit Summary JOSE CAN :1940 Visit Date:10/08/2023 Ambulatory Visit Instructions Your Diagnosis Prostate cancer BPH with obstruction/lower urinary tract symptoms Urinary retention Tests Performed Urnls Dip Stick Auto w/o Microscopy POC 80183 Your Care Team Attending Physician - LADAN [...] EDWARDS, Abran Darling Where: [facility] Patient Educationon 10-08-19 24 Patient Education Oncology [...] constipation, you may need to: ? Take qger-itp-otxllip or prescription medicines. ? Eat foods that are high in fiber, such as beans, whole grains, and fresh fruits and vegetables. ? Limit foods that are high in fat and processed sugars, such as fried or sweet foods. General instructions ? Take fllv-glh-upuznlc and prescription medicines only as told by [...] if: (more content not included)... Normal [facility] Urology Office/Clinic Noteon 10-08-2023 Urology [...] 09/12/23 in our office. Then presented to [facility] due to inability to urinate after [...] Alpa 6 (3+3) in 4 cores and Alpa [...] our office after brachytherapy. Then presented to [facility] due to inability to urinate after catheter removal. Bladder scan was >500mL. Dc'd home with Mendoza catheter in place. Came to our office 09/21/23 for catheter removal per approval of PRW. Reports he has not had any issues urinating since. Follow-up With When Contact Information Abran OCHOA MD, URL [facility] [address] [place] [address] [phone] Additional Instructions: 3 mos w/ PSA Patient [...] hernia rep (more content not included)... Normal [facility] Comment on above: Result Comment: Elec tronically [...] EDWARDS, Abran Darling Where: [facility] [address] [id number] \.br\ Medications\.b r\ What When Instructions\. br\ [...] for choosing us for your care.\.br\ \.br\ [facility] CNOVon 09-19-2023 CNOV Office Visit (RADTSA ) JOSE CAN ([id number]) 1940 M Date Time Provider Department 09/19/23 9:15 AM Jc MENDIOLA During your visit today, we recorded the following information about you: Temperature Pulse Respiration Blood pressure 97.3 degrees 64/minute 16/minute 153/83 Weight 89.4 kg Jc Mendiola MD 09/19/2023 4:02 PM Signed Radiation Oncology - Follow Up Note PATIENT NAME: Jose Can PATIENT DIAGNOSIS: Prostate adenocarcinoma, initial PSA 3.1, biopsy [place] score 3 + 4 = 7 (grade [...] ASSESSMENT/PLAN: Prostate adenocarcinoma, initial PSA 3.1, biopsy [place] score 3 + 4 = 7 (grade [...] Mendiola MD cc: Martir Herbert II, MD [address] [place] [address] No referring provider defined for this encounter. Allergies As of Date: 09/19/2023 Noted Allergy Reaction PENICILLINS 02/16/2023 2 - Rash SULFA (SULFONAMIDE ANTIBIOTICS) 02/16/2023 2 - Rash Date Reviewed: 09/19/2023 Reviewed by: Debra Quinn LPN - Fully Assessed Reason for Visit: Prostate Cancer [590] Primary Visit Diagnosis:Malignant neoplasm of prostate (HCC) [C61] Order(s):PSA/PROSTSPE CAG DIAG [SQPSA] Order #: [id number] FUTURE Prescriptions as of 09/19/2023 - simvastatin [...] for Encounter Date Provider Department Center 09/19/2023 [id number] MENDIOLA DEVIN BAUTISTA Encounter Status:Closed by Jc MENDIOLA on 09/19/23 Normal [facility] Ambulatory Visit Summaryon 1 11-13-2022 Ambulatory Visit [...] EDWARDS, Abran Darling Where: [facility] [address] [place] [address]- \.br\ Medications\.b r\ What When Instructions\. br\ [...] for choosing us for your care.\.br\ \.br\ [facility] Reportson 09-07-2023 Lab Reports [id number]#1 .00TIFF Normal [facility] Operative Reporton Operative Report [id number]#1 .00TIFF Normal [facility] RAD - MISCon 09-07-2023 RAD - MISC [id number]#1 .00TIFF Normal [facility] CNOVon 09-06-2023 CNOV Office Visit (RADTSA ) JOSE CAN ([id number]) 1940 M Date Time Provider Department 09/06/23 9:00 AM Jc MENDIOLA During your visit today, we recorded the following information about you: Jc Mendiola MD 09/06/2023 3:18 PM Signed Date: 09/06/23 Facility: [facility] Procedure: prostate transperineal brachytherapy implant [...] activity seen, results documented. Edilma Mendiola MD [facility] Allergies As of Date: 09/06/2023 Noted [...] Encounter Status:Closed by Jc MENDIOLA on 09/06/23 [facility] Consultation Noteon 11-17-20 23 Consultation Note [id number]#1 .00TIFF Viktor [facility] Rebecca 07-24-2023 JORGE Telephone (RADTSA) JOSE CAN ([id number]) 1940 M Date Time Provider Department 07/24/23 [...] him an updated schedule. NATALIO Rutherford Ariana, GABO 07/25/2023 11:27 AM Signed jai [facility] dtr, [...] Status:Closed by DEBRA QUINN on 07/25/23 Normal [facility] ECG 12-Leadon 07-24-2023 ECG 12-Lead [id number]#1 .00TIFF Normal [facility] Formson 07-24-2023 Forms [id number]#1 .00TIFF Normal [facility] ECG 12-Leadon 07-20-2023 ECG 12-Lead [id number]#1 .00TIFF Normal [facility] Report[facility] 07-20-2023 Lab Reports [id number]#1. 00TIFF Normal [facility] Lab Reports [id number] 0 [id number] #1.00TIFF Normal [facility] Lab Reports [id number]#1. 00TIFF Normal [facility] RAD - MISCon 07-20-2023 RAD - MISC [id number]#1. 00TIFF Normal [facility] CNOVon 07-11-2023 CNOV Office Visit (RADTSA ) JOSE CAN ([id number]) 1940 Date Time Provider Department 07/11/23 11:30 AM [...] Encounter Status:Closed by Jc MENDIOLA on 07/12/23 [facility] 06-04-2023 [facility] Telephone (RADTSA) JOSE CAN ([id number]) 1940 M Date Time Provider Department 06/04/23 [...] Encounter Status:Closed by NICHELLE ELKINS on 06/04/23 [facility] 05-29-2023 L - -------- Specimen: [id number] Received: 05/29/23 Status: RANDI Capellan Num: [id number] Spec Type: Surgical Subm Dr: Juan Jiang MD Tissues: A Colon Biopsy (ASCENDING POLYP) Procedures: HE/2, Gross/Micro L4 -------- Age/ Patient Sex Location Account Attending Physician -------- Jose Can /[facility] [id number] Juan Jiang MD -------- SPEC NUM: [id number] RECD: 05/29/23 STATUS: RANDI CAPELLAN NUM: [id number] FAIZAN: 05/29/23- DR: Juan Jiang MD ENTERED: 05/29/[address]: IRVIN TYPE: Surgical DEPT: S ORDERED: [...] microscopic examination confirms the diagnosis. CPT Codes 47036 -------- -------- Specimen: [id number] Received: 05/29/23 Status: RANDI Marilia Num: [id number] Spec Type: Surgical Subm Dr: Juan Jiang MD Tissues: A Colon Biopsy (ASCENDING POLYP) Procedures: HE/Josselin, Gross/Micro L4 -------- Patient: Jose Can [id number] (Continued) -------- Signed (signature on file) Kashmir Linares MD 05/31/[address] [facility] Rebecca 05-02-2023 CNPN Telephone (RADTSA) JOSE CAN ([id number]) 1940 M Date Time Provider Department 05/02/23 [...] colonoscopy was done per Dr Franco at [facility] in 2016. It was normal. Dr [...] Dr Franco. They would like local referral ([place]un[place]). This needs done prior to us being [...] Status:Closed by NICHELLE ELKINS on 05/29/23 Normal [facility] Creatinine (Bld) [Mass/Vol]O rdered By: Abran Ochoa on 12-19-2022 Creatinine [Mass/Vol] 0.9 mg/dL 0.6-1.3 [facility] Comment on above: ER/ESD physician is notified/shown all ISTAT results.Critical values may be confirmed by laboratory testing ifdeemed necessary by ER attending doctor. PSA, FREE AND TOTAL RATIOon 10-18-2022 % Free PSA 21.9 % Normal [facility] Comment on above: Result Comment: The [...] men. Performed By: #### P SAFREE #### [facility] [address] [address] [address] Deisi Bush Prostate specific Ag [Mass/Vol] 3.1 ng/mL Normal 0.0-4.[address] [facility] Comment on above: Result Comment: Cris baker ECLIA methodology. . According to the [employer], Serum PSA should decrease and [...] disease. Performed By: #### P SAFREE #### [facility] [address] [address] [address] Deisi Bush PSA, Free 0.68 ng/mL Normal N/A [facility] Comment on above: Result Comment: Cris baker ECLIA methodology. Performed By: #### P SAFREE #### [facility] [address] [address] [address] Deisi Bush CBC AUTO DIFFon 03-04-2022 BASO # 0.0 103/ul Normal 0.0-0.[address] [facility] Comment on above: Performed By: #### C BC #### [facility] [address] [place] [address] Dr. Deisi Bush Basophils/100 WBC (Bld) 0.6 % Normal 0.2-2.[address] [facility] Comment on above: Performed By: #### C BC #### [facility] [address] [place] [address] Dr. Deisi Bush EO # 0.5 103/ul Normal 0.0-0.[address] [facility] Comment on above: Performed By: #### C BC #### [facility] [address] [place] [address] Dr. Deisi Bush Eosinophils/100 WBC (Bld) 10.2 % Critically high 0.9-7.[address] [facility] Comment on above: Performed By: #### C BC #### [facility] [address] [place] [address] Dr. Deisi Bush Erythrocyte distribution width (RBC) [Ratio] 13.4 % Normal 11.0-15.[address] [facility] Comment on above: Performed By: #### C BC #### [facility] [address] [place] [address] Dr. Deisi Bush Hematocrit (Bld) [Volume fraction] 42.3 % Normal 42.0-54.[address] [facility] Comment on above: Performed By: #### C BC #### [facility] [address] [place] [address] Dr. Deisi Bush Hemoglobin (Bld) [Mass/Vol] 14.1 g/dL Normal 14.0-18.[address] [facility] Comment on above: Performed By: #### C BC #### [facility] [address] [place] [address] Dr. Deisi Bush IG # 0.01 10e3/ul Normal 0.00-0.[address] [facility] Comment on above: Performed By: #### C BC #### [facility] [address] [place] [address] Dr. Deisi Bush IG % 0.2 % Normal 0.0-0.5 [facility] Comment on above: Performed By: #### C BC #### [facility] [address] [place] [address] Dr. Deisi Bush LYMPH # 2.4 103/ul Normal 1.2-3.[address] [facility] Comment on above: Performed By: #### C BC #### [facility] [address] [place] [address] Dr. Deisi Bush Lymphocytes/100 WBC (Bld) 46.5 % Normal 20.5-60.[address] [facility] Comment on above: Performed By: #### C BC #### [facility] [address] [place] [address] Dr. Deisi Bush MANUAL DIFF REQ NO Normal [facility] Comment on above: Performed By: #### C BC #### [facility] [address] [place] [address] Dr. Deisi Bush MCH (RBC) [Entitic mass] 30.5 pg Normal 25.9-34.[address] [facility] Comment on above: Performed By: #### C BC #### [facility] [address] [place] [address] Dr. Deisi Bush MCHC (RBC) [Mass/Vol] 33.3 g/dL Normal 29.9-35.[address] [facility] Comment on above: Performed By: #### C BC #### [facility] [address] [place] [address] Dr. Deisi Bush MCV (RBC) [Entitic vol] 91.4 fL Normal 80.0-94.[address] [facility] Comment on above: Performed By: #### C BC #### [facility] [address] [place] [address] Dr. Deisi Bush MONO # 0.6 103/ul Normal 0.3-0.[address] [facility] Comment on above: Performed By: #### C BC #### [facility] [address] [place] [address] Dr. Deisi Bush Monocytes/100 WBC (Bld) 10.6 % Normal 1.7-12.[address] [facility] Comment on above: Performed By: #### C BC #### [facility] [address] [address] [address] Deisi Bush NEUT # 1.7 103/ul Normal 1.4-6.[address] [facility] Comment on above: Performed By: #### C BC #### [facility] [address] [address] [address] Deisi Bush Neutrophils/100 WBC (Bld) 31.9 % Critically low 43.0-75.[address] [facility] Comment on above: Performed By: #### C BC #### [facility] [address] [address] [address] Deisi Bush Platelet mean volume (Bld) [Entitic vol] 9.2 fL Critically low 9.5-13.[address] [facility] Comment on above: Performed By: #### C BC #### [facility] [address] [address] [address] Deisi Bush PLT 219 103/ul Normal 150-[address] [facility] Comment on above: Performed By: #### C BC #### [facility] [address] [address] [address] Deisi Bush RBC 4.63 106/ul Critically low 4.70-6.10 [facility] Comment on above: Performed By: #### C BC #### [facility] [address] [address] [address] Deisi Bush WBC 5.2 103/ul Normal 4.0-11.[address] [facility] Comment on above: Performed By: #### C BC #### [facility] [address] [address] [address] Deisi Bush LIPID PROFILEon 03-04-2022 CHOL-HDL RATIO NORM SEE BELOW Normal [facility] Comment on above: Result Comment: 3.3 - 4.4 LOW RISK 4.4 - 7.1 AVERAGE RISK 7.1 - 11.0 MODERATE RISK >11.0 HIGH RISK Performed By: #### T SH, LIPID, CMP #### [facility] [address] [place] [address] Dr. Deisi Bush Cholesterol [Mass/Vol] 125 mg/dL Normal <=200 [facility] Comment on above: Performed By: #### T SH, LIPID, CMP #### [facility] [address] [address] [address] Deisi Bush Cholesterol in HDL [Mass/Vol] 37 mg/dL Critically low 40-[address] [facility] Comment on above: Performed By: #### T SH, LIPID, CMP #### [facility] [address] [address] [address] Deisi Bush Cholesterol in LDL [Mass/Vol] 75.6 mg/dL Normal [facility] Comment on above: Performed By: #### T SH, LIPID, CMP #### [facility] [address] [place] [address] Dr. Deisi Bush Cholesterol.total/Chol esterol in HDL [Mass ratio] 3.4 {ratio} Normal [facility] Comment on above: Performed By: #### T SH, LIPID, CMP #### [facility] [address] [address] [address] Deisi Bush HDL NORMAL > or = 60 mg/dl - LO W CARDIOVASCULAR RISK <40 mg/dl - HIGH CARDIOVASCULAR RISK Normal [facility] Comment on above: Performed By: #### T SH, LIPID, CMP #### [facility] [address] [place] [address] Dr. Deisi Bush LDL CALC NORMAL SEE BELOW Normal [facility] Comment on above: Result Comment: <100 mg/dl OPTIMAL 100 - 129 mg/dl NEAR OR ABOVE OPTIMAL 130 - 159 mg/dl BORDERLINE HIGH 160 - 189 mg/dl HIGH >190 mg/dl VERY HIGH Performed By: #### T SH, LIPID, CMP #### [facility] [address] [address] [address] Deisi Bush Triglyceride [Mass/Vol] 62 mg/dL Normal <=[address] [facility] Comment on above: Performed By: #### T SH, LIPID, CMP #### [facility] [address] [address] [address] Deisi Bush VLDL CALC 12.4 mg/dL Normal [facility] Comment on above: Performed By: #### T SH, LIPID, CMP #### [facility] [address] [address] [address] Deisi Bush PROF 14(COMP METB)on 022 Albumin [Mass/Vol] 3.4 g/dL Normal 3.4-5.0 [facility] Comment on above: Performed By: #### T SH, LIPID, CMP #### [facility] [address] [place] [address] Dr. Deisi Bush Albumin/Globulin [Mass ratio] 0.9 {ratio} Normal [facility] Comment on above: Performed By: #### T SH, LIPID, CMP #### [facility] [address] [place] [address] Dr. Deisi Bush ALP [Catalytic activity/Vol] 73 U/L Normal 46-[address] [facility] Comment on above: Performed By: #### T SH, LIPID, CMP #### [facility] [address] [place] [address] Dr. Deisi Bush ALT [Catalytic activity/Vol] 27 U/L Normal 16-[address] [facility] Comment on above: Performed By: #### T SH, LIPID, CMP #### [facility] [address] [place] [address] Dr. Deisi Bush Anion gap [Moles/Vol] 11.6 mmol/L Normal [facility] Comment on above: Performed By: #### T SH, LIPID, CMP #### [facility] [address] [place] [address] Dr. Deisi Bush AST [Catalytic activity/Vol] 22 U/L Normal 15-[address] [facility] Comment on above: Performed By: #### T SH, LIPID, CMP #### [facility] [address] [place] [address] Dr. Deisi Bush Bilirubin [Mass/Vol] 1.1 mg/dL Critically high 0.2-1.[address] [facility] Comment on above: Performed By: #### T SH, LIPID, CMP #### [facility] [address] [place] [address] Dr. Deisi Bush Calcium [Mass/Vol] 8.7 mg/dL Normal 8.5-10.1 [facility] Comment on above: Performed By: #### T SH, LIPID, CMP #### [facility] [address] [place] [address] Dr. Deisi Bush Chloride [Moles/Vol] 105 mmol/L Normal 98-107 [facility] Comment on above: Performed By: #### T SH, LIPID, CMP #### [facility] [address] [place] [address] Dr. Deisi Bush CO2 [Moles/Vol] 27.6 mmol/L Normal 21.0-32.0 [facility] Comment on above: Performed By: #### T SERGIO, LIPID, CMP #### [facility] [address] [place] [address] Dr. Deisi Bush Creatinine [Mass/Vol] 0.90 mg/dL Normal 0.70-1.30 [facility] Comment on above: Performed By: #### T SH, LIPID, CMP #### [facility] [address] [place] [address] Dr. Deisi Bush EGFR-AF FIJIAN >60 Normal >=60 [facility] Comment on above: Performed By: #### T SERGIO, LIPID, CMP #### [facility] [address] [place] [address] Dr. Deisi Bush EGFR-NON AF FIJIAN >60 Normal >=60 [facility] Comment on above: Performed By: #### T SH, LIPID, CMP #### [facility] [address] [place] [address] Dr. Deisi Bush Globulin (S) [Mass/Vol] 3.6 g/dL Normal [facility] Comment on above: Performed By: #### T SH, LIPID, CMP #### [facility] [address] [place] [address] Dr. Deisi Bush Glucose [Mass/Vol] 96 mg/dL Normal 74-106 [facility] Comment on above: Performed By: #### T SH, LIPID, CMP #### [facility] [address] [place] [address] Dr. Deisi Bush Potassium [Moles/Vol] 4.2 mmol/L Normal 3.5-5.[address] [facility] Comment on above: Performed By: #### T SERGIO, LIPID, CMP #### [facility] [address] [place] [address] Dr. Deisi Bush Protein [Mass/Vol] 7.0 g/dL Normal 6.4-8.2 [facility] Comment on above: Performed By: #### T SH, LIPID, CMP #### [facility] [address] [place] [address] Dr. Deisi Bush Sodium [Moles/Vol] 140 mmol/L Normal 136-145 [facility] Comment on above: Performed By: #### T SERGOI, LIPID, CMP #### [facility] [address] [place] [address] Dr. Deisi Bush Urea nitrogen [Mass/Vol] 16.0 mg/dL Normal 7.0-18.[address] [facility] Comment on above: Performed By: #### T SERGIO, LIPID, CMP #### [facility] [address] [place] [address] Dr. Deisi Bush Urea nitrogen/Creatinine [Mass ratio] 17.8 mg/mg Normal [facility] Comment on above: Performed By: #### T SERGIO, LIPID, CMP #### [facility] [address] [place] [address] Dr. Deisi Bush TSHon 03-04-2022 TSH 1.259 uIU/mL Normal 0.358-3.[address] [facility] Comment on above: Performed By: #### T SH, LIPID, CMP #### [facility] [address] [place] [address] Dr. Deisi Bush TSH RANGE SEE BELOW Normal [facility] Comment on above: Result Comment: <0.3 4 UIU/ml HYPERTHYROID 0.34-5.60 UIU/ml EUTHYROID >5.60 UIU/ml HYPOTHYROID Performed By: #### T SERGIO, LIPID, CMP #### [facility] [address] [place] [address] Dr. Deisi Bush Lipid Panelon 09-21-2021 Cholesterol [Mass/Vol] 181 mg/dL Normal 125-200 [facility] Comment on above: Result Comment: Low risk < 200mg/dL Borderline risk 201-239 mg/dl High risk > or equal to 240 Performed By: #### L IPD #### [facility] [address] [place], [place] [id number] Cholesterol in HDL [Mass/Vol] 41 mg/dL Normal >40 [facility] Comment on above: Result Comment: High Cardiovascular Risk HDL <40 mg/dL Low Cardiovascular Risk HDL > or equal to 60 mg/dl Performed By: #### L IPD #### [facility] [address] [place], [place] [id number] Cholesterol in LDL [Mass/Vol] 126 mg/dL Normal [facility] Comment on above: Result Comment: LDL ATP III CLASSIFICATION LDL less than 100 mg/dl Optimal LDL 100-129 mg/dl Near or above optimal LDL 130-159 Borderline high LDL 160-189 High LDL greater than 189 mg/dl Very High Performed By: #### L IPD #### [facility] [address] [place], [place] [id number] Cholesterol in VLDL [Mass/Vol] 14 mg/dL Normal [facility] Comment on above: Performed By: #### L IPD #### [facility] [address] [place], [place] [id number] Cholesterol.total/Chol esterol in HDL [Mass ratio] 4 {ratio} Normal [facility] Comment on above: Performed By: #### L IPD #### [facility] [address] [place], [place] [id number] Triglyceride [Mass/Vol] 72 mg/dL Normal 30-150 [facility] Comment on above: Result Comment: TRIG ATPIII CLASSIFICATIONS TRIG less than 150 mg/dl Normal TRIG 150-199 mg/dl Borderline High TRIG 200-500 mg/dl High TRIG greather than 500 mg/dl Very High Performed By: #### L IPD #### [facility] [address] [place], [place] [id number] PSA SCREEN (MEDICARE)on 08-25 TPSA 3.110 ng/mL Normal <4.000 [facility] Comment on above: Result Comment: PSA Test Method: ECLIA/Saw e 601 Performed By: #### P #### [facility] [address] [place], [place] [id number] Vital Signs Date Time Vital Sign Value Performing Clinician Facility 07-04-2024 09:16-0400 Blood Pressure Location Abran OCHOA [facility] 07-04-2024 09:16-0400 Body temperature 98.6 [degF] Abran OCHOA [facility] 07-04-2024 09:16-0400 Diastolic blood pressure 77 mm[Hg] Abran OCHOA [facility] 07-04-2024 09:16-0400 Heart rate 64 /min Abran OCHOA [facility] 07-04-2024 09:16-0400 Respiratory rate 17 /min Abran OCHOA [facility] 07-04-2024 09:16-0400 Systolic blood pressure 131 mm[Hg] Abran OCHOA [facility] 04-10-2024 09:29-0400 Body mass index (BMI) [Ratio] 27.77 kg/m2 KENDRICK Mendiola MD Work Phone: [facility] 04-10-2024 09:29-0400 Body temperature 97.39 [degF] KENDRICK Mendiola MD Work Phone: [facility] 04-10-2024 09:29-0400 Body weight 85.3 kg KENDRICK Mendiola MD Work Phone: [facility] 04-10-2024 09:29-0400 Diastolic blood pressure 78 mm[Hg] KENDRICK Mendiola MD Work Phone: [facility] 04-10-2024 09:29-0400 Heart rate 71 /min KENDRICK Mendiola MD Work Phone: [facility] 04-10-2024 09:29-0400 Respiratory rate 18 /min KENDRICK Mendiola MD Work Phone: [facility] 04-10-2024 09:29-0400 SaO2% (BldA) [Mass fraction] 96 % NA Maury EDWARDS Work Phone: [facility] 04-10-2024 09:29-0400 Systolic blood pressure 152 mm[Hg] KENDRICK Mendiola MD Work Phone: [facility] 12-28-2023 08:06-0400 Blood Pressure Location Abran OCHOA [facility] 12-28-2023 08:06-0400 Diastolic blood pressure 87 mm[Hg] Abran OCHOA [facility] 12-28-2023 08:06-0400 Heart rate 51 /min Abran OCHOA [facility] 12-28-2023 08:06-0400 Respiratory rate 16 /min Abran OCHOA [facility] 12-28-2023 08:06-0400 Systolic blood pressure 131 mm[Hg] Abran OCHOA [facility] 12-19-2023 09:30-0400 Diastolic blood pressure 89 mm[Hg] [...] 28.8 kg/m2 II Martir Herbert Work Phone: [facility] 12-19-2023 07:04-0400 Body weight 88.45 kg II Martir Herbert Work Phone: [facility] 12-19-2023 06:22-0400 Body temperature 97.6 [degF] II Martir Herbert Work Phone: [facility] 12-18-2023 11:59-0400 Body height 175.26 cm [facility] 12-18-2023 11:59-0400 Body mass index (BMI) [Ratio] 26.6 kg/m2 [facility] 12-18-2023 11:59-0400 Body temperature 97.6 [degF] [facility] 12-18-2023 11:59-0400 Body weight 81.64 kg [facility] 12-18-2023 11:59-0400 Diastolic blood pressure 72 mm[Hg] [facility] 12-18-2023 11:59-0400 Heart rate 62 /min [facility] 12-18-2023 11:59-0400 Respiratory rate 16 /min [facility] 12-18-2023 11:59-0400 SaO2% (BldA) [Mass fraction] 98 % [facility] 12-18-2023 11:59-0400 Systolic blood pressure 120 mm[Hg] [facility] 10-08-2023 09:53-0500 Blood Pressure Location Abran LADAN [facility] 10-08-2023 09:53-0500 Diastolic blood pressure 74 mm[Hg] Abran OCHOA [facility] 10-08-2023 09:53-0500 Heart rate 72 /min Abran OCHOA [facility] 10-08-2023 09:53-0500 Respiratory rate 16 /min Abran OCHOA [facility] 10-08-2023 09:53-0500 Systolic blood pressure 130 mm[Hg] Abran OCHOA [facility] 05-29-2023 09:10-0400 Diastolic blood pressure 67 mm[Hg] II Martir Herbert Work Phone: [facility] 05-29-2023 09:10-0400 Heart rate 51 /min II Martir Herbert Work Phone: [facility] 05-29-2023 09:10-0400 Respiratory rate 16 /min II Martir Herbert Work Phone: [facility] 05-29-2023 09:10-0400 SaO2% (BldA) [Mass fraction] 96 % II Martir Herbert [facility] [...] [facility] OCHOA [facility] 02-05-2023 08:47-0400 Mean blood pressure 103 mm[Hg] Abran OCHOA [facility] 02-05-2023 08:47-0400 Systolic blood pressure 150 mm[Hg] Abran OCHOA [facility] 02-05-2023 08:42-0400 Blood Pressure Location Abran OCHOA [facility] 02-05-2023 08:42-0400 Diastolic blood pressure 80 mm[Hg] Abran OCHOA [facility] 02-05-2023 08:42-0400 Heart rate 53 /min Abranvalentin OCHOA [facility] 02-05-2023 08:42-0400 Systolic blood pressure 154 mm[Hg] Abranvalentin OCHOA [facility] 12-19-2022 06:51-0400 Body height 177.8 cm II Martir Herbert Work Phone: [facility] 12-19-2022 06:51-0400 Body weight 81.64 kg II Martir Herbert Work Phone: [facility] 12-04-2022 12:26-0400 Blood Pressure Location Abran OCHOA [facility] 12-04-2022 12:26-0400 Diastolic blood pressure 70 mm[Hg] Abran OCHOA [facility] 12-04-2022 12:26-0400 Heart rate 64 /min Abran LADAN [facility] 12-04-2022 12: Systolic blood pressure 149 mm[Hg] Abran LADAN [facility] Encounters Encounter Date Encounter Type Care Provider Facility Start: 07-06-2025 ambulatory Abran R LADAN Facili ty:[facility] Start: 07-14-2024 End: 07-14-2024 Clinisync Result Encounter Generic External Data Provider [facility] Unsolicited Start: 07-14-2024 End: 07-14-2024 Clinisync Result Encounter Generic External Data Provider [facility] External [facility] Unsolicited Start: 07-04-2024 End: 07-04-2024 ambulatory Abran Phong LADAN Facility:[facility] Start: 07-04-2024 End: 07-04-2024 Patient encounter procedure Abran Phong LADAN [facility] Start: 07-01-2024 End: 07-01-2024 Clinisync Result Encounter Generic External Data Provider [facility] External Department Unsolicited Start: 07-01-2024 End: 07-01-2024 Clinisync Result Encounter Generic External Data Provider [facility] External [facility] Unsolicited Start: 05-27-2024 End: 05-27-2024 Clinisync Result Encounter Generic External Data Provider [facility] External Department Unsolicited Start: 05-27-2024 End: 05-27-2024 Clinisync Result Encounter Generic External Data Provider [facility] External [facility] Unsolicited Start: 04-10-2024 End: 04-10-2024 Patient encounter procedure G Chirag Mendiola MD Work Phone: Radiation Oncology Comment on above: Malignant neoplasm o f prostate (HCC) (Primary Dx) Start: 04-10-2024 End: 04-10-2024 ambulatory MARTIR HERBERT II Facility:[facility] Start: 03-26-2024 End: 03-26-2024 ambulatory MARTIR HERBERT Not Available Start: 12-28-2023 End: 12-28-2023 ambulatory Abran OCHOA Facility:[facility] Start: 12-28-2023 End: 12-28-2023 Patient encounter procedure Abran OCHOA [facility] Start: 12-20-2023 End: 12-20-2023 ambulatory MARTIR HERBERT Not Available Start: 12-19-2023 Non-patient / Non-visit II Domenic Herbert Work Phone: [facility] Work Phone: Start: 12-19-2023 End: 12-19-2023 ambulatory Armani Kelly Facility:[facility] Start: 12-19-2023 End: 12-19-2023 Admission to same day surgery center II Martir Herbert Work Phone: [facility] [place] Start: 12-19-2023 End: 12-19-2023 ambulatory II Martir Herbert Work Phone: [facility] Work Phone: Start: 12-18-2023 End: 12-18-2023 ambulatory [facility] Work Phone: Start: 12-18-2023 End: 12-18-2023 Patient encounter procedure [facility] Work Phone: Start: 12-06-2023 End: 12-06-2023 ambulatory MARTIR HERBERT Not Available Start: 11-14-2023 End: 11-14-2023 ambulatory MARTIR HERBERT Not Available Start: 10-11-2023 End: 10-11-2023 ambulatory MARTIR HERBERT II Facility:[facility] Start: 10-08-2023 End: 10-08-2023 ambulatory Abran OCHOA Facility:[facility] Start: 10-08-2023 End: 10-08-2023 Patient encounter procedure [facility]CHO[facility] Start: 10-03-2023 End: 10-03-2023 ambulatory MARTIR HERBERT II Facility:[facility] Start: 10-03-2023 End: 10-03-2023 Subsequent hospital visit by physician Pet Ct Scan Yunier Lewis Work Phone: Radiology [facility] Start: 09-21-2023 End: 09-21-2023 ambulatory Abran OCHOA Facility: [facility] Start: 09-21-2023 End: 09-21-2023 Patient encounter procedure [facility] Start: 09-19-2023 End: 09-19-2023 ambulatory MARTIR HERBERT II Facility:[facility] Start: 09-12-2023 End: 09-12-2023 ambulatory Abran OCHOA Facility:[facility] Start: 09-12-2023 End: 09-12-2023 Patient encounter procedure Abran OCHOA [facility] Start: 09-06-2023 End: 09-06-2023 ambulatory MARTIR HERBERT II Facility:[facility] Start: 09-06-2023 End: 09-06-2023 Patient encounter procedure Jc Mendiola MD Work Phone: Radiation Oncology Comment on above: Malignant neoplasm o f prostate (HCC) (Primary Dx) Start: 09-06-2023 End: 09-06-2023 ambulatory Abran OCHOA Facility:[id number] Start: 08-08-2023 ambulatory Abran OCHOA Facili ty:[facility] [...] 07-11-2023 End: 07-11-2023 ambulatory MARTIR HERBERT II Facility:[facility] Start: 05-29-2023 End: 05-29-2023 ambulatory Martir Herbert Facility:[facility] Start: 05-29-2023 End: 05-29-2023 Admission to same day surgery center II Martir Herbert Work Phone: [facility] Work Phone: Start: 05-29-2023 End: 05-29-2023 ambulatory II Martir Herbert Work Phone: [facility] Work Phone: Start: 05-23-2023 Patient encounter procedure [facility] Provider [facility] Start: 05-02-2023 Telephone encounter G Chirag Mendiola MD Work Phone: Radiation Oncology Comment on above: Constipation; Rectal Bleeding; Future Appointment Start: 02-21-2023 Patient encounter procedure Ccf Provider [facility] Start: 02-05-2023 End: 02-05-2023 Patient encounter procedure Abran OCHOA [facility] Start: 01-16-2023 End: 01-16-2023 Patient encounter procedure Abran OCHOA [facility] Start: 12-19-2022 End: 12-19-2022 ambulatory II Martirheraclio Herbert Work Phone: [facility] Work Phone: Start: 12-19-2022 End: 12-19-2022 Patient encounter procedure II Martir Herbert Work Phone: [facility] [place] Work Phone: Start: 12-04-2022 End: 12-04-2022 Patient encounter procedure Abran OCHOA [facility] [place] Start: 10-17-2022 End: 10-18-[address] ABRAN OCHOA Facility:[facility] Start: 09-22-2022 End: 09-22-2022 Patient encounter procedure [facility] OCHOA [facility] Start: 03-04-2022 End: 03-05-[address] MARTIR HERBERT Facility:[facility] Procedures Date Procedure Procedure Detail Performing Clinician Start: 07-14-2024 ALL SED RATE Generic Ex ternal Data Provider Start: 07-01-2024 MHPT PSA, DIAGNOSTIC [facility] External Data Provider Start: 05-27-2024 ALL SED RATE Generic Ex ternal Data Provider Start: 12-24-2023 PSA screening [facility] [...] Td or Tdap) [facility] Start: 04-09-2025 End: 04-09-2025 Patient encounter procedure 04/09/2025 9:00 AM EDT Office Visit Rad[facility] Oncology [address] [place] [address] [place] [address] Jc Mendiola MD [address] [place] [address] Followup Radiation Oncology Comment on above: Followup Start: 09-29-2024 End: 09-29-2024 Patient encounter procedure 09/29/2024 8:30 AM EST Office Visit [facility] [address] [facility] [address] [place] [id number] Martir Herbert MD [address] [facility] [address] [place] [address] [facility] Start: 05-25-2024 Covid-19 Vaccine ( season) Covid-19 Vaccine ( season) [facility] Start: 05-25-2024 Influenza vaccination Influenza Vacc ine (#1) [facility] Start: 12-19-2023 [facility] Start: 12-19-2023 [facility] Start: 11-29-2023 Covid-19 Vaccine () Covid-19 Vaccine () [facility] Start: 09-24-2023 Advance Directive Discussion Advance Directive Discussion [facility] Start: 09-24-2023 Behavioral Health Screening Behavioral Health Screening [facility] Start: 05-29-2023 [facility] Start: 05-25-2023 Covid-19 Vaccine () Covid-19 Vaccine () [facility] Start: 05-25-2023 Influenza vaccination C [facility] Start: 12-11-2022 COVID-19 VACCINE (5 [...] of 2) SHINGRIX VACCINE (1 of 2) [facility] Start: 1986 DIABETES SCREEN DIABETES SCREEN [facility] Start: 1986 Diabetes Screening Diabetes Screenin g [facility] Start: 1960 Urine microalbumin profile DTAP,TDAP,TD (1 - Tdap) [facility] Start: 11-24-1959 Anxiety Screening Anxiety Screening [facility] Start: 11-24-1959 Depression Screening Depression Scre ening [facility] Patient referral [facility] Work Phone: [facility] Immunizations Immunization Date Immunization Notes Care Provider Alvin barker 07-31-2023 COVID-19 (PFIZER) 12Y and older II Martir Herbert Work Phone: [facility] 07-31-2023 influenza virus vacc ine, unspecified formulation Abran OCHOA [facility] 07-31-2023 Influenza, Seasonal, Quadrivalent, Adjuvanted Generic Provider [facility] 08-13-2022 influenza virus vacc ine, unspecified formulation Abran OCHOA [facility] 08-13-2022 Influenza, Seasonal, Quadrivalent, Adjuvanted Generic Provider [facility] 08-13-2022 SARS-CoV-2 (COVID-19 ) [id number] Abran OCHOA [facility] 12-18-2021 zoster vaccine recombinant Abran OCHOA [facility] 09-21-2021 zoster vaccine recombinant Abran OCHOA [facility] 09-19-2021 tetanus toxoid, redu lester diphtheria toxoid, and acellular pertussis vaccine, adsorbed Abran OCHOA [facility] 08-25-2021 influenza virus vacc ine, unspecified formulation Abran OCHOA [facility] 06-25-2021 influenza virus vacc ine, unspecified formulation Abran OCHOA [facility] 06-25-2021 Influenza, Seasonal, Quadrivalent, Adjuvanted Generic Provider [facility] 06-25-2021 SARS-CoV-2 (COVID-19 ) mRNA BNT-162b2 vax Abran OCHOA [facility] Comment on above: Result Comment: 2022: [id number] 11-14-2020 SARS-CoV-2 (COVID-19 ) mRNA BNT-162b2 vax Abran OCHOA [facility] Comment on above: Result Comment: 2022: [id number] 10-24-2020 SARS-CoV-2 (COVID-19 ) mRNA BNT-162b2 vax Abran OCHOA [facility] Comment on above: Result Comment: 2022: [id number] 07-03-2020 influenza, high dose seasonal, preservative-free Generic Provider [facility] 06-28-2020 influenza virus vacc ine, unspecified formulation Abran OCHOA [facility] 07-02-2019 influenza virus vacc ine, unspecified formulation Abran OCHOA [facility] 07-02-2019 pneumococcal conjuga te vaccine, 13 valent Abran OCHOA [facility] 07-02-2019 Seasonal trivalent influenza vaccine, adjuvanted, preservative free Generic Provider [facility] 06-29-2018 influenza virus vacc ine, unspecified formulation Abran OCHOA [facility] 06-29-2018 Seasonal trivalent influenza vaccine, adjuvanted, preservative free Generic Provider [facility] 06-21-2017 influenza virus vacc ine, unspecified formulation Abran OCHOA [facility] 08-18-2015 influenza virus vacc ine, unspecified formulation Abran OCHOA [facility] 08-18-2015 influenza, high dose seasonal, preservative-free Generic Provider [facility] 06-23-2014 influenza virus vacc ine, unspecified formulation Abran OCHOA [facility] 06-23-2014 influenza, seasonal, injectable, preservative free Generic Provider [facility] 07-01-2013 influenza virus vacc ine, unspecified formulation Abran OCHOA [facility] 07-01-2013 zoster vaccine, live Abran OCHOA [facility] 10-05-2009 pneumococcal polysaccharide vaccine, 23 valent Generic Provider [facility] Payers Date Payer Category Payer Self-pay 2022 Private Health Insurance [id number] 2006 Medicare [id number] 1959 Medicare [id number] 1959 Private Health Insurance [id number] 1941 Unknown [id number] 1941 Unknown [id number] [id number] 1941 Unknown [id number] [id number] 1941 Unknown [id number] [id number] 1941 Unknown [id number] 1941 Unknown [id number] [id number]59 1941 Unknown [id number] [id number] 1941 Unknown [id number] [id number] 1941 Unknown [id number] 2.16.840.1.752089.3.579.2.727 1941 Unknown [id number] [id number] 1941 Unknown [id number] [id number] 1941 Unknown [id number] [id number] 1941 Unknown [id number] [id number] 1941 Unknown [id number] [id number] Unknown Insurance No Card [id number] Unknown [id number] Unknown [id number] Social History Date Type Detail Facility Start: 09-01-2020 End: 11-12-2023 Tobacco smoking status Never smoked tobacco (finding) [facility] Tobacco smoking status Never [facility] Start: 02-16-2023 End: 11-14-2023 Sex Assigned At Male [facility] Start: 1940 Sex Assigned At Male [facility] Start: 02-16-2023 End: 11-12-2023 Tobacco use and exposure Smokeless tobacco non-user [facility] Start: 02-16-2023 End: 09-19-2023 Alcohol intake Ex-drinker (finding) [facility] Start: 1940 Sex Assigned At Not on file [facility] Start: 02-16-2023 End: 11-14-[address] [facility] Goals Date Patient Goal Desired Activity /State Functional Status Date Assessment Result Facility 07-04-2024 Functional Status N/A [facility] 12-28-2023 Functional Status N/A [facility] 10-08-2023 Functional Status N/A [facility] 02-05-2023 Functional Status N/A [facility] 12-04-2022 Functional Status N/A [facility] Clinical Notes 02-23-2022 to 07-04-2024 Jc Mendiola [...] under a microscope. This is called the [place] score and the total score can range from 6 10, indicating how likely it is that the cancer will spread (metastasize) to other parts of the body. The higher the score, the greater the likelihood that the cancer will spread. Alpa 6 or lower: This indicates that the cancer cells look similar to normal prostate cells (well differentiated). [place] 7: This indicates that the cancer cells [...] stress of having cancer. General instructions Take xght-dgs-vbttovr and prescription medicines only as told by your health care provider. If you have to go to the hospital, notify your cancer specialist (oncologist). Keep all follow-up visits. This is important. Where to find more information [place] [employer]: www.cancer.org [place] [employer] of Clinical Oncology: www.cancer.net National Cancer [place]: www.cancer.gov Contact a health care provider if: [...] provider. Document Revised: 12/07/2021 Document Reviewed: 12/07/2021 [employer] Patient Education 2023 [employer]. Follow Up Care 12/28/2023 08:57:43 With:LADAN EDWARDS, Abran Darling, URL Address: [facility] [address] [place] [address]- When: Unknown [facility] 07-04-2024 Note Patient Education Oncology Prostate Cancer [...] under a microscope. This is called the [place] score and the total score can range from 6?10, indicating how likely it is that the cancer will spread (metastasize) to other parts of the body. The higher the score, the greater the likelihood that the cancer will spread. ? [place] 6 or lower: This indicates that the cancer cells look similar to normal prostate cells (well differentiated). ? [place] 7: This indicates that the cancer cells look somewhat similar to normal prostate cells (moderately differentiated). ? [place] 8, 9, or 10: This indicates that [...] the prostate gla (more content not included)... [facility] 04-10-2024 History of Present illness Narrative Radiation [...] Mendiola MD cc: Martir Herbert II, MD [address] [place] [address] Dr. Ochoa documented in this encounter [facility] 04-10-2024 Note HNO ID: [id number] Author: Jc MENDIOLA MD Service: ? Author Type: Physician Type: Progress Notes Filed: 04/14/2024 10:59 Note Text: Radiation Oncology - Follow Up Note PATIENT NAME: Jose Can PATIENT DIAGNOSIS: Prostate adenocarcinoma, initial PSA 3.1, biopsy [place] score 3 + 4 = 7 (grade [...] Mendiola MD cc: Martir Herbert II, MD [address] [place] [address] Dr. Ochoa [facility] 04-10-2024 Nurse Note AUA [address] [facility] 04-10-2024 Nurse Note AUMg 4 Nichelle Elkins RN documented in this encounter [facility] 12-28-2023 Hospital Discharge instructions Patient Education [...] urethra. Follow these instructions at home: Take ipmt-uax-uevusye and prescription medicines only as told by [...] provider. Document Revised: 03/29/2022 Document Reviewed: 03/29/2022 [employer] Patient Education 2022 [employer]. Follow Up Care 12/04/2022 12:55:53 With:LADAN EDWARDS, Abran Darling, URL Address: [address] [place], [place] [id number]- When: Unknown [facility] 10-11-2023 Note HNO ID: [id number] Author: Jc MENDIOLA MD Service: ? Author Type: Physician Type: [place] Notes Filed: 10/11/2023 09:38 Note Text: Radiation Oncology - Follow Up Note PATIENT NAME: Jose Can PATIENT DIAGNOSIS: Prostate adenocarcinoma, initial PSA 3.1, biopsy [place] score 3 + 4 = 7 (grade [...] Mendiola MD cc: Martir Herbert II, MD [address] [place] [address] Dr. Ochoa [facility] 10-08-2023 Hospital Discharge instructions Patient Education 10/08/2023 [...] treat constipation, you may need to: Take cszk-uwx-xbktomt or prescription medicines. Eat foods that are high in fiber, such as beans, whole grains, and fresh fruits and vegetables. Limit foods that are high in fat and processed sugars, such as fried or sweet foods. General instructions Take xpvo-ydx-maszvxm and prescription medicines only as told by [...] provider. Document Revised: 12/07/2021 Document Reviewed: 12/07/2021 [employer] Patient Education 2022 [employer]. Follow Up Care 06/26/2023 12:00:57 With:LADAN EDWARDS, Abran Darling, URL Address: [facility] [address] [place] [phone] When: Unknown Comments:3 mos w/ PSA [facility] 10-03-2023 Note HNO ID: [id number] Author: Jc MENDIOLA MD Service: ? Author Type: Physician Type: Progress Notes Filed: 10/12/2023 11:35 Note Text: Patient: Jose Can Date:10/03/2023 [facility] Department of Radiation Oncology [facility] RADIATION ONCOLOGY POST SEED IMPLANT SIMULATION NOTE [...] Electronically Signed CHIRAG MENDIOLA M.D. 1:35 AM [facility] 09-19-2023 Note HNO ID: [id number] Author: Jc Mendiola MD Service: ? Author Type: Physician Type: Progress Notes Filed: 09/19/2023 4:02 PM Note Text: Radiation Oncology - Follow Up Note PATIENT NAME: Jose Can PATIENT DIAGNOSIS: Prostate adenocarcinoma, initial PSA 3.1, biopsy [place] score 3 + 4 = 7 (grade [...] Mendiola MD cc: Martir Herbert II, MD [address] [place] [address] No referring provider defined for this encounter. [facility] 09-06-2023 Note HNO ID: [id number] Author: Jc Mendiola MD Service: ? Author Type: Physician Type: Progress Notes Filed: 09/06/2023 3:18 PM Note Text: Date: 09/06/23 Facility: [facility] Procedure: prostate transperineal brachytherapy implant [...] seen, results documented. Edilma Mendiola MD [facility] 09-06-2023 History of Present illness Narrative Date: 09/06/23 Facility: [facility] Procedure: prostate transperineal brachytherapy implant [...] seen, results documented. Edilma Mendiola MD [facility] documented in this encounter [facility] 08-25-2023 Note HNO ID: [id number] Author: Jc Mendiola MD Service: ? Author Type: Physician Type: Progress Notes Filed: 09/06/2023 12:36 AM Note Text: JOSE CAN [id number] 08/25/2023 [facility] Department [facility]cology [facility] [...] Chirag Mendiola M.D. / NATY 33:42 PM [facility] 07-25-2023 Miscellaneous Notes jai Robison's dtr, returned [...] [facility] 07-12-2023 Note HNO ID: [id number] Author: Jc Mendiola MD Service: ? Author [...] Visit completed when applicable. Jc Mendiola MD [facility] 07-11-2023 History of Present illness Narrative [facility] CANNET[facility] [id number] 07/11/2023 [facility] Department of Radiation Oncology [facility] RADIATION ONCOLOGY SIMULATION NOTE DATE OF SIMULATION: 07/11/2023 MACHINE: [employer] 500 Diagnosis: 185 (Prostate Gland) AREA:Prostate PATIENT POSITION: Supine CONTRAST: None PROTOCOL: None CONCURRENT THERAPY: None FIXATION DEVICE: UTS Stabilization device by [email or web address]. PROCEDURE: Patient was simulated in exaggerated dorsal lithotomy position. Serial images of the prostate were acquired using TRUS and reconstructed in 3D space. These images were imported into [employer] Prostate planning system where a plan was generated. ASSESSMENT/PLAN: Patient tolerated simulation procedure well. Electronically Signed Chirag Mendiola M.D. / NATY 35:19 PM documented in this encounter [facility] 07-11-2023 Note HNO ID: [id number] Author: Jc Mendiola MD Service: ? Author Type: Physician Type: Progress Notes Filed: 07/12/2023 12:35 AM Note Text: PAMELLA JOSE [id number] 07/11/2023 [facility] Department of Radiation Oncology [facility] RADIATION ONCOLOGY SIMULATION NOTE DATE OF SIMULATION: 07/11/2023 MACHINE: [employer] 500 Diagnosis: 185 (Prostate Gland) AREA:Prostate PATIENT POSITION: Supine CONTRAST: None PROTOCOL: None CONCURRENT THERAPY: None FIXATION DEVICE: UTS Stabilization device by [email or web address]. PROCEDURE: Patient was simulated in exaggerated dorsal lithotomy position. Serial images of the prostate were acquired using TRUS and reconstructed in 3D space. These images were imported into [email or web address] Prostate planning system where a plan was generated. ASSESSMENT/PLAN: Patient tolerated simulation procedure well. Electronically Signed Chirag Mendiola M.D. / NATY 35:19 PM [facility] 05-29-2023 Procedure note [facility] 05-03-2023 Miscellaneous Notes Patients daughter called [...] colonoscopy was done per Dr Franco at [facility] in [address]. [address] Mendiola-- please advise. Nichelle Elkins RN documented in this encounter [facility] 02-05-2023 Hospital Discharge instructions Patient Education [...] the likelihood that the cancer will spread. [place] 6 or lower: This indicates that the cancer cells look similar to normal prostate cells (well differentiated). [place] 7: This indicates that the cancer cells [...] stress of having cancer. General instructions Take eepl-nen-oyabsve and prescription medicines only as told by your health care provider. If you have to go to the hospital, notify your cancer specialist (oncologist). Keep all follow-up visits. This is important. Where to find more information [place] [employer]: www.cancer.org [place] Society of Clinical Oncology: www.cancer.net National Cancer [place]: www.cancer.gov Contact a health care provider if: [...] provider. Document Revised: 12/07/2021 Document Reviewed: 12/07/2021 [employer] Patient Education 2022 [employer]. Follow Up Care 01/04/2023 12:26:51 With:LADAN EDWARDS, Abran Darling, URL Address: [facility] [address] [place] [phone] When:Within 6 Month(s) Comments:Will refer to Dr. Mendiola [facility] Hospital Discharge instructions Patient Education [...] for your post-operative appointment in 1-2 weeks [phone] or [phone] Follow Up Care 01/04/2023 11:45:40 With:Abran OCHOA Address: [facility] [address] [place] [address]- Business (1) When: Unknown Comments:Keep scheduled appointment [facility] 12-04-2022 Hospital Discharge instructions Patient Education 12/04/2022 [...] urethra. Follow these instructions at home: Take jqwu-hpl-tnjujfo and prescription medicines only as told by [...] 09/10/2006 Document Revised: 08/05/2019 Document Reviewed: 10/15/2017 [employer] Patient Education [employer]. Follow Up Care 09/22/2022 08:10:59 With:Abran OCHOA MD, URL Address: [facility] [address] [place] [address]- When: Unknown [facility] 02-23-2022 Hospital Discharge instructions Follow Up Care 02/23/2022 13:31:33 With:Abran OCHOA MD, URL Address: [address] [place] [address]- When: Unknown [facility] Evaluation + Plan note Future Appointments Appointment Date:12/04/2022 12:15:00 PM Scheduled Provider:Abran OCHOA MD Location:[facility] Appointment Type:URO Office Visit [facility] Evaluation + Plan note Future Appointments Appointment Date:12/07/2023 08:00:00 AM Scheduled Provider:Abran OCHOA MD Location:[facility] Appointment Type:URO Office Visit [facility] Evaluation + Plan note Future Appointments Appointment Date:02/05/2023 08:30:00 AM Scheduled Provider:Abran [facility]CHOA MD [facility] Type:[facility]O Office Visit Appointment Date:12/07/2023 08:00:00 AM Scheduled Provider:Abran OCHOA MD [facility] App[facility] Type:URO Office Visit Diagnostic Tests PendingProstate Histology ([facility]) 01/16/23 [facility] Evaluation + Plan note Future Appointments Appointment Date:12/07/2023 08:00:00 AM Scheduled Provider:Abran OCHOA MD [facility] Type:URO Office Visit Diagnostic Tests PendingPSA Total 02/05/23 [facility] Evaluation + Plan note Future Appointments Appointment Date:10/08/2023 09:30:00 AM Scheduled Provider:Abran OCHOA MD [facility] App[facility] Type:URO Office Visit Appointment Date:12/07/2023 08:00:00 AM Scheduled Provider:Abran OCHOA MD [facility] Type:URO Office Visit [facility] Evaluation + Plan note Future Appointments Appointment Date:12/28/2023 08:00:00 AM Scheduled Provider:Abran OCHOA MD [facility] Type:URO Office Visit Diagnostic Tests PendingPSA Total 10/08/23 [facility] Evaluation + Plan note Future Appointments Appointment Date:07/04/2024 09:15:00 AM Scheduled Provider:Abran OCHOA MD Location:[facility] Appointment Type:URO Office Visit Diagnostic Tests PendingPSA Total 04/24/24 [facility] Evaluation + Plan note Future Appointments Appointment Date:07/06/2025 08:45:00 AM Scheduled Provider:Abran OCHOA MD Location:[facility] Appointment Type:URO Office Visit [facility] Evaluation note No assessment inform ation available [facility] Work Phone: Evaluation note Diagnosis Rectal bleeding- Primary Hemorrhage of rectum and anus Constipation, unspecified constipation type Prostate cancer (HCC) Malignant neoplasm of prostate [facility] Diagnosis Malignant neoplasm of prostate (HCC)- Primary Malignant neoplasm of prostate [facility]* Diagnosis Onset Date Resolution Status Temporal arteritis acute [facility] Work Phone: Evaluation note* Diagnosis Malignant neoplasm of prostate (HCC)- Primary Malignant neoplasm of prostate [facility] Author Juan Jiang [facility] May 29, 2023 8:21am Note Date/Time May 29, 2023 8:21am [facility] [address] [place] [address] Gastroenterology H&P Signed Patient: Jose Can MR#: [id number] : 1940 Acct:[id number] Age/Sex: 82 / M Adm Date: 3 Loc: Room: Type: [facility] Attending Dr: Juan Jiang MD Copies [...] <Electronically signed by Juan Jiang MD> 05/29/23820 [facility] Work Phone: Hospital course Narrative No data available for this section [facility] Hospital Discharge instructions Additional Instructions DISCHARGE INSTRUCTIONS [...] years. -Follow up with PCP. -Office number [phone]. [facility] Work Phone: Hospital Discharge instructions No data available for this section [facility] progress note No data available for this section [facility] reason for referral (narrative) , Refer to Dr. Mendiola for [place] [employer] Referred by: LADAN EDWARDS, Abran Darling [facility] Summary Purpose Family History Relationship Condition Age [...] section and content) DATE CREATED AUTHOR 09/22/2021 [facility] DATE CREATED AUTHOR AUTHOR'S ORGANIZ ATION 10/18/2022 [facility] pital DATE CREATED AUTHOR AUTHOR'S ORGANIZ ATION 02/09/2024 [facility] DATE CREATED AUTHOR AUTHOR'S ORGANIZ ATION 03/27/2024 [facility] EPIC DATE CREATED AUTHOR AUTHOR'S ORGANIZ ATION 04/16/2024 [facility] DATE CREATED AUTHOR AUTHOR'S ORGANIZ ATION [facility]20[facility] team informatio n (unrecognized section and content) Team Status: Active Member Role Status Dates Martir Herbert II MD Primary Care Provider Active Team Status: Inactive Member Role Status Dates Martir Herbert II MD Primary Care Provider Active Abran Ochoa MD Attending Provider Active Mixing Technician Relationship Specialty Start Date End Date Martir Herbert II [address] [place] [address] PCP - General Internal Medicine 02/06/23 Mixing Technician Relationship Specialty Start Date End Date Martir Herbert II, MD [address] [place] [address] PCP - General Internal Medicine 02/06/23 Team Status: Inactive Member Role Status Dates Martir Herbert II MD Primary Care Provider Active Juan Jiang MD Attending Provider Active Mixing Technician Relationship Specialty Start Date End Date Martir Herbert II, MD [address] [place] [address] PCP - General Internal Medicine 02/06/23 Mixing Technician Relationship Specialty Start Date End Date Martir Herbert II, MD [address] [place] [address] PCP - General Internal Medicine 02/06/23 Mixing Technician Relationship Specialty Start Date End Date Martir Herbert II, MD [address] [place] [address] PCP - General Internal Medicine 02/06/23 Mixing Technician Relationship Specialty Start Date End Date Martri Herbert II, MD [address] [place] [address] PCP - General Internal Medicine 02/06/23 Team [...] Other Provider Active Start: December 19, 2023 Mixing Technician Relationship Specialty Start Date End Date Martir Herbert II, MD [address] [facility] [address] [place] [address] PCP - General Internal Medicine 02/06/23 Mixing Technician Relationship Specialty Start Date End Date Martir Herbert MD [address] [facility] [address] [place] [address] PCP - ACO Reach 02/15/23 Martir Herbert MD [address] [facility] [address] [place] [address] PCP - General Internal Medicine 01/30/23 Mixing Technician Relationship Specialty Start Date End Date Martir Herbert MD [address] [place] [address] PCP - ACO Reach 02/15/23 Martir Herbert MD [address] [facility] [address] [place] [address] PCP - General Internal Medicine 01/30/23 Goals [...] BE BASED ON THE PRIMARY CLINICAL RECORDS. [employer] [facility]. provides no warranty or guarantee of the accuracy or completeness of information in this document.
[2024-09-25 07:29] LABS: C Reactive Protein <0.50 mg/dL (<=0.50)
[2024-09-25 07:53] LABS: Erythrocyte Sedimentation Rate 7 mm/hr (<=20)
== END 2024-09-25 06:54 | disposition home or self-care (01) ==
LOC: LAB 06:53
PROVIDERS: PCP Internal Medicine; Visit Provider Internal Medicine Rheumatology
DX: M31.6 Other giant cell arteritis (principal); M19.90 Unspecified osteoarthritis, unspecified site; Z51.81 Encounter for therapeutic drug level monitoring
CPT/HCPCS: 36415; 85652; 86140

== ENCOUNTER 2024-11-14 06:38 | Outpatient (OUT) | payer MEDICARE, OTHER, SELFPAY ==
--- OUTSIDE RECORDS SUMMARY | 2024-11-14 06:41 | XMS_ITS | CCD ---
Author Organization [facility] Care Team Providers Care Cardroom Drawing Runner Name Role Phone MARTIR HERBERT Primary Care Physician DR MARTIR HERBERT Admitting Unavailable KEON, DR POPE Primary Care Unavailable KEON, DR POPE Consulting Unavailable KEON, DR POPE Attending Unavailable LADAN, DR OSULLIVAN Attending Unavailable KEON, DR POPE Primary Care Unavailable LADAN, DR OSULLIVAN Admitting Unavailable LADAN, DR OSULLIVAN Consulting Unavailable MANGO Herbert Primary Care Provider [phone] MD Abran Ochoa Attending Provider Martir Herbert II Primary Care Provider Keon COBIAN MD, Daniel B Primary Care Provider MANGO Herbert Primary Care Provider MD Juan Jiang Attending Provider [phone] MANGO Herbert Primary Care Provider MD Armani Kelly Attending Provider [phone] Martir Herbert Primary Care Unavailable Juan Jiang Attending Unavailable Juan Jiang Admitting Unavailable Armani Kelly Attending Unavailable Armani Kelly Admitting Unavailable Martir Herbert Primary Care Unavailable MARTIR HERBERT Attending Unavailable MARTIR HERBERT Attending Unavailable MARTIR HERBERT Attending Unavailable MARTIR HERBERT Attending Unavailable Koen COBIAN MD, Daniel B Primary Care Provider [phone] MARTIR HERBERT II Primary Care Unavailable Jc [...] R Attending Unavailable Martir Herbert MD Unavailable Martir Herbert MD Primary Care Provider [phone] Allergies Allergy Classification Reported Allergen(s) Allergy Type Date of Onset Reaction(s) Facility (10 sources) Penicillin; Translations: [penicillin] Drug Allergy Unknown (qualifier value) [facility] (10 sources) Sulfonamides; Translations: [sulfonamides] Drug allergy Unknown (qualifier value) [facility] (5 sources) Penicillins; Translations: [PENICILLINS] Drug allergy (disorder) 3 Hives [facility] (1 source) Sulfonamides (Antibiotic) Drug allergy (disorder) 3 [facility] (9 sources) Penicillins Drug Allergy 3 [facility] (16 sources) Sulfonamides (Antibiotic); Translations: [SULFA (SULFONAMIDE ANTIBIOTICS)] Drug Allergy 3 [facility] (1 source) Penicillins Drug allergy (disorder) 4 [facility] (1 source) Sulfonamides (Antibiotic) Drug allergy (disorder) 4 [facility] (4 sources) Penicillins Drug Allergy 3 Hives, Rash, Unknown [facility] Medications Current Medications Medication Drug Class(es) Dates Sig (Normalized) Sig (Original) acetaminophen 325 mg / HYDROcodone bitartrate 7.5 mg oral tablet (1 source) Opioid Agonist Start: 01-04-2023 take 1 tablet by mouth once, then take 1 tablet by mouth every hour [place] 325 mg-7.5 mg oral tablet 1 tab(s), Oral, Once, 1 tab(s), Refill(s) 0, Take 1 hour prior to procedure, [facility]/pharmacy #[id number], 175, cm, 03/13/23 12:29:00 EDT, Height/Length Dosing, 89, kg, 12/04/22 12:29:00 EDT, Weight Dosing Start Date: 01/04/23 Status: Ordered aspirin 81 mg delayed release oral tablet (16 sources) Platelet Aggregation Inhibitor, Nonsteroidal Anti-inflammatory Drug Start: 05-29-2023 take 1 tablet by mouth in the morning aspirin 81 MG EC tablet Take 81 mg by mouth in the morning. 05/29/2023 Active Comment on above: Take 81 mg by mouth once daily. calcium citrate 950 mg oral tablet (13 sources) calcium citrate (Calcitrate) 950 (200 Ca) MG tablet Take 200 mg by mouth in the morning. Active calcium citrate (CITRACAL ORAL) Take by mouth. Active calcium citrate (CITRACAL ORAL) Take by mouth. 0 Active Comment on above: Take by mouth. cholecalciferol 0.025 mg oral tablet (4 sources) Vitamin D take 1 tablet by [...] by mouth. furosemide 20 mg oral tablet (4 sources) Loop Diuretic Start: 04-21-2024 take 1 [...] (20 sources) Angiotensin Converting Enzyme Inhibitor Start: 12-30-20 24 take 1 tablet by mouth in the morning lisinopril 10 MG tablet Indications: Benign essential hypertension (CMS/HCC) TAKE 1 TABLET BY MOUTH IN THE MORNING 90 tablet 3 09/22/2024 Active Start: 01-05-2023 take 1 tablet by dot in the morning lisinopril 10 MG tablet Indications: Benign essential hypertension (CMS/HCC) Take 1 tablet (10 mg) by mouth in the morning. 100 tablet 3 11/14/2023 Active Start: 10-28-2019 Co Lisinopril Refills(s) 0 Start Date: 10/28/19 Status: Ordered omega-3 acid ethyl esters (retirement) 1000 mg oral capsule (16 sources) Start: 09-22-2024 take 1 capsule by mouth in the morning omega-3 acid ethyl esters (Lovaza) 1 g capsule Indications: Mixed hyperlipidemia (CMS/HCC) TAKE 1 CAPSULE BY MOUTH IN THE MORNING AND 1 CAPSULE BY MOUTH BEFORE BEDTIME 180 capsule 3 09/22/2024 Active Start: 01-05-2023 take 1 capsule by mo [facility] in the morning omega-3 acid ethyl esters [...] ement oxybutynin chloride 5 mg oral tablet (7 sources) Cholinergic Muscarinic Antagonist Start: take 1 tablet by mouth at bedtime as needed oxybutynin 5 mg Tab 5 mg = 1 tab(s), Oral, Bedtime, PRN for urinary discomfort, # 30 tab(s), Refills(s) 11, Pharmacy: [facility]/pharmacy #[id number], 175, cm, 12/28/23 8:09:00 EDT, Height/Length [...] tablet (20 sources) HMG-CoA Reductase Inhibitor Start: 09-22-2024 take 1 tablet by mouth in the morning simvastatin (Zocor) 20 MG tablet Indications: Mixed hyperlipidemia (CMS/HCC) TAKE 1 TABLET BY MOUTH IN THE MORNING 90 tablet 3 09/22/2024 Active Start: 01-05-2023 take 1 tablet by dot th in the morning simvastatin (Zocor) 20 MG [...] Start Date: 10/28/19 Status: Ordered Vit D3-Vit K2-[place] Ext (3 sources) Start: 05-29-2023 take 1 capsule by mouth once daily Vit D3-Vit K2-[place] Ext Active 25 CAP PO Daily May 29, 2023 12:00am Vitamins A,C,K-Dcdi-Qdfdxl (Preservision Areds) 4,296 mcg-226 mg-90 mg capsule (2 sources) Start: 12-18-2023 take 1 capsule by mouth twice daily Vitamins A,C,T-Abgb-Kahzex (Preservision Areds) 4,296 mcg-226 mg-90 mg capsule Active 1 CAP PO Twice daily December 18, 2023 12:00am Problems Active Problems Problem Classification Problem Date Documented Da te Episodic/Chronic Cancer of prostate (15 sources) Malignant neoplasm of prostate; Translations: [Malignant tumor of prostate] Onset: 02-05-2023 Chronic Cancer; other and unspecified primary (9 sources) H/O Malignant melanoma 10-28-2019 Episodic Disorders of lipid metabolism (8 sources) Mixed hyperlipidemia; Translations: [Mixed hyperlipidemia] Onset: 03-04-2022 Chronic Essential hypertension (4 sources) Benign essential hypertension; Translations: [Essential (primary) hypertension] Onset: 05-28-2023 05-28-2023 Chronic Gastrointestinal hemorrhage (1 source) Rectal hemorrhage; Translations: [Hemorrhage of anus and rectum] 05-03-2023 Episodic Heart valve disorders (4 sources) Nonrheumatic aortic (valve) stenosis; Translations: [Aortic valve disorders] Onset: 12-06-2023 12-06-2023 Chronic Osteoarthritis (4 sources) Osteoarthritis of joint of right hand; Translations: [Primary osteoarthritis, right hand] Onset: 11-12-2023 11-12-2023 Chronic Other gastrointestinal disorders (1 source) Constipation; Translations: [Constipation, unspecified] 05-03-2023 Episodic Systemic lupus erythematosus and connective tissue disorders (7 sources) Temporal arteritis; 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] Onset: 12-19-2023 12-18-2023 Chronic Unclassified (1 source) Encounter for screening for malignant neoplasm of colon; Translations: [Encounter for screening for malignant neoplasm of colon] Onset: 05-29-2023 Past or Other Problems Problem Classification Problem Date Documented Da te Episodic/Chronic Abdominal hernia (4 sources) Left inguinal hernia ; Translations: [Unilateral [...] 11-14-2023 10-28-2019 Chronic Other male genital disorders (4 sources) Dysplasia of prostate; 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] Onset: 06-15-2005 Resolved: 11-14-2023 11-14-2023 Episodic Other nutritional; endocrine; and metabolic disorders (13 sources) Body mass index 25-29 - overweight; Translations: [Overweight] Onset: 11-12-2023 09-01-2020 Episodic Other screening for suspected conditions (not mental disorders or infectious disease) (18 sources) Raised prostate specific antigen; Translations: [Elevated prostate specific antigen [PSA]] Onset: 10-17-2022 09-01-2020 Episodic Other skin disorders (4 sources) Chronic folliculitis; Translations: [Follicular disorder, unspecified] Onset: 11-12-2023 11-12-2023 Episodic Results Test Name Value Interpretation Reference Range Facility ALL C REACTIVE PROTEINon CRP [Mass/Vol] mg/L [facility] - 0.50 mg/dL [facility] ALL SED RATEon 09-25-2024 TBH SED RATE 7 [facility]24 Interpretation and review of laboratory results Abnormal [facility] SED RATE 35 High [facility] Urology Office/Clinic Noteon 07-04-2024 Urology Office/Clinic Note [...] URL [facility] [address], [place] [address]- Additional Instructions: 1 yr with PSA from [...] virus vaccine, inactivated 08/13/2022 Recorded SARS-CoV-2 (COVID-19) [id number] 08/13/2022 Recorded zoster vaccine, inactivated 12/18/2021 Recorded zoster vaccine, inactivated 09/21/2021 Recorded diphtheria/pertussis, acel/tetanus adult 09/19/2021 Recorded influenza (more content not included)... Normal [facility] Comment on above: Result Comment: Elec tronically Signed By: Abran OCHOA MD\.br\Date and Time Signed: 07/04/24 10:24 EDT\.br\Electronically Co-Signed By: Debi Vidal\.br\Date and Time Co-Signed: 07/04/24 10:22 EDT MHPT PSA, DIAGNOSTICon 07-01 PROSTATE SPECIFIC ANTIGEN DX 0.30 ng/mL NINF - 4.00 ng/mL [facility] ALL SED RATEon 05-27-2024 TBH SED RATE 9 NINF [facility] CNOVon 04-10-2024 CNOV Office Visit (RADTSA ) JOSE CAN ([id number]) 1940 M Date Time Provider Department 04/10/24 [...] DIAGNOSIS: Prostate adenocarcinoma, initial PSA 3.1, biopsy [place] score 3 + 4 = 7 (grade [...] ASSESSMENT/PLAN: Prostate adenocarcinoma, initial PSA 3.1, biopsy [place] score 3 + 4 = 7 (grade [...] Mendiola MD cc: Martir Herbert II, MD [address] [place] [address] Dr. Ochoa Allergies As of Date: 04/10/2024 Noted Allergy Reaction PENICILLINS 02/16/2023 2 - Rash SULFA (SULFONAMIDE ANTIBIOTICS) 02/16/2023 2 - Rash Date Reviewed: 04/10/2024 Reviewed by: Nichelle Elkins RN - Fully Assessed Primary Visit Diagnosis:Malignant neoplasm of prostate (HCC) [C61] Order(s):PSA (OUTSIDE) [5395572] Order #: [id number] Prescriptions as of 04/14/2024 - predniSONE (DELTASONE) [...] 10/11/2023 Visit Notes: >> Nichelle Elkins RN [facility] Apr 10, 2024 9:32 AM Status: Signed AUA 4 Nichelle Elkins RN Disposition: Return in about 1 year (around 04/10/2025). Follow-up and Disposition History for Encounter Date Provider Department Center 04/10/2024 [id number] [facility] Encounter Status:Closed by Jc MENDIOLA on 04/14/24 Normal [facility] Patient Educationon 12-28-19 Patient Education [...] Follow these instructions at home: ? Take bxjz-yxx-hyuocpv and prescription medicines only as told by [...] the medicine (more content not included)... Normal [facility] Urology Office/Clinic Noteon 12-28-2023 Urology Office/Clinic [...] (7 mm x 4mm) TRUS/bx 01/16/23 - [place] 7 (3+4) GG2. cT2a, N0, M0, stage [...] IO s/p brachytherapy. Pt then presented to [facility] ER due to inability to urinate after catheter removal. Bladder scan was >500mL. Dc'd home with Mendoza catheter in place. Came to our office 09/21/23 for catheter removal per approval of PRW. No issues with urination after Mendoza was removed. See #2. Follow-up With When Contact Information LADAN EDWARDS, Abran Darling, URL [address] [place] [address]- Additional Instructions: 6 mos w/ PSA Patient Education Benign Prostatic Hyperplasia I, Agata Durant, personally scribed for Dr. Ochoa on 12/28/2023 08:52:12. . Documentation recorded by the Agata john, accurately reflects the services(s) I performed [...] Medications Co (more content not included)... Normal [facility] Comment on above: Result Comment: Elec tronically Signed By: Abran OCHOA MD\.br\Date and Time Signed: 12/28/23 08:53 EDT\.br\Electronically Co-Signed By: Agata Durant\.br\Date and Time Co-Signed: 12/28/23 08:52 EDT Lab Reportson 12-24-2023 Lab Reports [id number] Normal [facility] PSA (OUTSIDE)on 12-24-2023 [facility] Anisocytosis LM Ql (Bld)Orde red By: Arden Marin on 12-19-2023 Anisocytosis Ql (Bld) Slight [facility] Basic Metabolic Panelon 11-23 Anion gap [Moles/Vol] 9.1 mmol/L Normal 6.0-15.0 [facility] Comment on above: Performed By: #### S CAN CBC, BMP #### [facility] [address] Calcium [Mass/Vol] 8.5 mg/dL Low 8.6-10.3 [facility] Comment on above: Performed By: #### S CAN CBC, BMP #### [facility] [address] [place] [address] [place] Chloride [Moles/Vol] 103 mmol/L Normal 98-107 [facility] Comment on above: Performed By: #### S CAN CBC, BMP #### [facility] [address] [place] [address] [place] CO2 [Moles/Vol] 26.0 mmol/L Normal 21.0-31.0 [facility] Comment on above: Performed By: #### S CAN CBC, BMP #### [facility] [address] [place] [address] [place] Creatinine [Mass/Vol] 0.74 mg/dL Normal 0.70-1.30 [facility] Comment on above: Performed By: #### S CAN CBC, BMP #### [facility] [address] [place] [address] [place] Creatinine Clr Calc Pharmacy 78.34 Normal [facility] Comment on above: Result Comment: PERF ORMED BY: [place] [address] PATHOLOGIST INSPECTOR PENETRANT CAREN DALEY M.D. Performed By: #### S CAN CBC, BMP #### [place] [address] [place] GFR/1.73 sq M.predicted MDRD (S/P/Bld) [Vol rate/Area] mL/min/{1.73_m2} Normal [facility] Comment on above: Performed By: #### S CAN CBC, BMP #### [facility] [address] [place] [address] [place] Glucose [Mass/Vol] 88 mg/dL Normal 70-100 [facility] Comment on above: Result Comment: [place] Glucose Reference Range is dependent on time and content of last meal. Glucose of more than 200 mg/dL in a nonstressed, ambulatory subject supports the diagnosis of Diabetes Mellitus. ADA recommended reference range Performed By: #### S CAN CBC, BMP #### [facility] [address] Potassium [Moles/Vol] 4.1 mmol/L Normal 3.5-5.1 [facility] Comment on above: Performed By: #### S CAN CBC, BMP #### [facility] [address] Sodium [Moles/Vol] 134 mmol/L Low 136-145 [facility] Comment on above: Performed By: #### S CAN CBC, BMP #### [facility] [address] Urea nitrogen [Mass/Vol] 23 mg/dL Normal 7-25 [facility] Comment on above: Performed By: #### S CAN CBC, BMP #### [facility] [address] Basophils Auto (Bld) [#/Vol] Ordered By: Arden Marin on 12-19-2023 Basophils (Bld) [#/Vol] 0.1 10*3/uL 0.0-0.2 [facility] Basophils/100 WBC Auto (Bld) Ordered By: Arden Marin on 12-19-2023 Basophils/100 WBC (Bld) 0.4 % . [facility] Calcium [Mass/volume] in Ser um or PlasmaOrdered By: Arden Marin on 12-19-2023 Calcium [Mass/Vol] 8.5 mg/dL 8.6-10.3 [facility] Carbon dioxide, total [Moles /volume] in Serum or PlasmaOrdered By: Arden Marin on 12-19-2023 CO2 [Moles/Vol] 26.0 mmol/L 21.0-31.0 [facility] Chloride [Moles/volume] in S jerry or PlasmaOrdered By: Arden Marin on 12-19-2023 Chloride [Moles/Vol] 103 mmol/L 98-107 [facility] Creatinine [Mass/volume] in Serum or PlasmaOrdered By: Arden Marin on 12-19-2023 Creatinine [Mass/Vol] 0.74 mg/dL 0.70-1.30 [facility] ECG 12 lead ECGon 12-19-2023 ECG 12 lead ECG [facility] [place] [address] [place], [place] [id number] Electrocardiograph Report Signed Patient: Jose Can MR#: [id number] : 1940 Acct:[id number] Age/Sex: 83 / M ADM Date: 12/19/23 Loc: [place] Room: Type: [facility] Attending Dr: Armani Kelly MD Ordering [...] previous ECGs available Confirmed by [id number] on 12/19/2023 6:51:43 AM Referred By: Electronically Signed By:ABRAN SRIVASTAVA MD [facility] Transcribed By: MUS Signed By Pal Srivastava MD 12/19/23 0651 Normal [facility] Eosinophils Auto (Bld) [#/Vo l]Ordered By: Arden Marin on 12-19-2023 Eosinophils (Bld) [#/Vol] 0.1 10*3/uL 0.0-0.45 [facility] Eosinophils/100 WBC Auto (Bl d)Ordered By: Arden Marin on 12-19-2023 Eosinophils/100 WBC (Bld) 0.3 % . [facility] Erythrocyte distribution wid th Auto (RBC) [Ratio]Ordered By: Arden Marin on 12-19-2023 Erythrocyte distribution width (RBC) [Ratio] 13.9 % 12.0-14.8 [facility] Glucose [Mass/volume] in Ser um or PlasmaOrdered By: Arden Marin on 12-19-2023 Glucose [Mass/Vol] 88 mg/dL 70-100 [facility] Comment on above: ADA recommended refe rence rangeRandom Glucose Reference Range is dependent on time and content of last meal. Glucose of more than 200 mg/dL in a nonstressed, ambulatory subject supports the diagnosis of Diabetes Mellitus. Hematocrit Auto (Bld) [Volum e fraction]Ordered By: Arden Marin on 12-19-2023 Hematocrit (Bld) [Volume fraction] 40.8 % 38.8-50.0 [facility] Hemoglobin [Mass/volume] in BloodOrdered By: Arden Marin on 12-19-2023 Hemoglobin (Bld) [Mass/Vol] 13.4 g/dL 13.0-17.0 [facility] Isaías 12-19-2023 L Specimen: [id number] Received: 12/19/23 Status: RANDI Req Num: [id number] Spec Type: Surgical Subm Dr: Armani Kelly MD Tissues: A Artery Temporal- Biopsy (RT TEMPORAL ARTERY BX) Procedures: Trichrome/2, CD45/2, HE/20, Gross/Micro L4, CD20/2, CD3/2, CD68/2 Age/ Patient Sex Location Account Attending Physician Jose Can/M [place] [id number] Armani Kelly MD SPEC NUM: [id number] RECD: 12/19/23 STATUS: RANDI BEULAH NUM: [id number] FAIZAN: 12/19/[address]: Armani Kelly MD ENTERED: 12/19/[address] [facility] [address]: SPEC TYPE: Surgical DEPT: S [...] Clinical Information Right temporal arteritis -------- Specimen: [id number] Received: 12/19/23 Status: RANDI Beulah Num: [id number] Spec Type: Surgical Subm Dr: Armani Kelly MD Tissues: A Artery Temporal- Biopsy (RT TEMPORAL ARTERY BX) Procedures: Trichrome/2, CD45/2, HE/20, Gross/Micro L4, CD20/2, CD3/2, CD68/2 -------- Patient: Jose Can [id number] (Continued) -------- Specimen: [id number] Received: 12/19/23 (Continued) Signed (signature on file) Mee Bush MD 12/21/231838 -------- Specimen: [id number] Received: 12/19/23 Status: RANDI Capellan Num: [id number] Spec Type: Surgical Subm Dr: Armani Kelly MD Tissues: A Artery Temporal- Biopsy (RT TEMPORAL ARTERY BX) Procedures: Trichrome/2, CD45/2, HE/20, Gross/Micro L4, CD20/2, CD3/2, CD68/2 -------- Patient: Jose Can [id number] (Continued) -------- Specimen: [id number] Received: 12/19/23 (Continued) Gross Description Received fresh labeled with the patient's name, date of and temporal artery biopsy right is a 7.8 x 0.3 cm cabrera-pink tubular tissue with attached silver metal clips. Sectioning reveals a patent lumen. Entirely submitted in two cassettes labeled A1-A2. CPT Codes 43497 42904, [id number] 91352 -------- -------- Specimen: [id number] Received: 12/19/23 Status: RANDI Capellan Num: [id number] Spec Type: Surgical Subm Dr: Armani Kelly MD Tissues: A Artery Temporal- Biopsy (RT TEMPORAL ARTERY BX) Procedures: Trichrome/2, CD45/2, HE/20, Gross/Micro L4, CD20/2, CD3/2, CD68/2 -------- Patient: Jose Can [id number] (Continued) -------- Signed (signature on file) Mee Bush MD 12/21/23 1839 Normal [facility] Leukocytes [#/volume] correc claudia for nucleated erythrocytes in Blood by Automated counOrdered By: Arden Marin on 12-19-2023 WBC corrected for nucl RBC Auto (Bld) [#/Vol] 16.2 10*3/uL 4.1-10.5 [facility] Lymphocytes Auto (Bld) [#/Vo l]Ordered By: Arden Marin on 12-19-2023 Lymphocytes (Bld) [#/Vol] 2.9 10*3/uL 1.00-4.8 [facility] Lymphocytes/100 WBC Auto (Bl d)Ordered By: Arden Marin on 12-19-2023 Lymphocytes/100 WBC (Bld) 17.7 % . [facility] MCH Auto (RBC) [Entitic mass ]Ordered By: Arden Marin on 12-19-2023 MCH (RBC) [Entitic mass] 28.9 pg 27.5-35.2 [facility] MCHC Auto (RBC) [Mass/Vol]Or dered By: Arden Marin on 12-19-2023 MCHC (RBC) [Mass/Vol] 32.8 g/dL 32.5-35.6 [facility] MCV Auto (RBC) [Entitic vol] Ordered By: Arden Marin on 12-19-2023 MCV (RBC) [Entitic vol] 88.0 fL 83.5-101 [facility] Microcytes LM Ql (Bld)Ordere d By: Arden Marin on 12-19-2023 Microcytes Ql (Bld) Slight [facility] Monocytes Auto (Bld) [#/Vol] Ordered By: Arden Marin on 12-19-2023 Monocytes (Bld) [#/Vol] 1.3 10*3/uL 0.0-0.8 [facility] Monocytes/100 WBC Auto (Bld) Ordered By: Arden Marin on 12-19-2023 Monocytes/100 WBC (Bld) 8.3 % . [facility] Neutrophils Auto (Bld) [#/Vo l]Ordered By: Arden Marin on 12-19-2023 Neutrophils (Bld) [#/Vol] 11.9 10*3/uL 1.8-7.7 [facility] Neutrophils/100 WBC Auto (Bl d)Ordered By: Arden Marin on 12-19-2023 Neutrophils/100 WBC (Bld) 73.3 % . [facility] No Panel InformationOrdered By: Arden Marin on 12-19-2023 Estimated GFR (CKD-EPI) > 60.0 mL/Min [facility] Creatinine Clearance (Chem 78.34 [facility] Nucleated erythrocytes [Pres ence] in Blood by Automated countOrdered By: Arden Marin on 12-19-2023 Nucleated RBC Auto Ql (Bld) 0.1 /100{WBC} 0-0.5 [facility] Ovalocyte detectionOrdered B y: Arden Marin on 12-19-2023 Ovalocytes LM Ql (Bld) Slight [facility] Platelet adequacy [Presence] in Blood by Light microscopyOrdered By: Arden Marin on 12-19-2023 Platelets LM Ql (Bld) Normal Normal [facility] Platelet mean volume Auto (B ld) [Entitic vol]Ordered By: Arden Marin on 12-19-2023 Platelet mean volume (Bld) [Entitic vol] 7.4 fL 6.6-10.1 [facility] Platelet morphology finding [Identifier] in BloodOrdered By: Arden Marin on 12-19-2023 Platelet morphology finding Nom (Bld) Normal Normal [facility] Platelets Auto (Bld) [#/Vol] Ordered By: Arden Marin on 12-19-2023 Platelets (Bld) [#/Vol] 364 10*3/uL 150-450 [facility] Platelets Large [Presence] i n Blood by Light microscopyOrdered By: Arden Marin on 12-19-2023 Platelets Large LM Ql (Bld) Slight [facility] Poikilocytosis [Presence] in Blood by Light microscopyOrdered By: Arden Marin on 12-19-2023 Poikilocytosis LM Ql (Bld) Slight [facility] Potassium [Moles/volume] in Serum or PlasmaOrdered By: Arden Marin on 12-19-2023 Potassium [Moles/Vol] 4.1 mmol/L 3.5-5.1 [facility] RBC Auto (Bld) [#/Vol]Ordere d By: Arden Marin on 12-19-2023 RBC (Bld) [#/Vol] 4.64 10*6/uL 3.90-5.60 [facility] RBC morphologyOrdered By: Kylah Marin on 12-19-2023 RBC morphology finding Nom (Bld) N/A [facility] Scan and CBCon 12-19-2023 Anisocytosis Ql (Bld) Slight Normal [facility] Comment on above: Performed By: #### S CAN CBC, BMP #### [facility] [address] Basophils (Bld) [#/Vol] 0.1 10*3/uL Normal 0.0-0.2 [facility] Comment on above: Performed By: #### S CAN CBC, BMP #### [facility] [address] [address] Basophils/100 WBC (Bld) 0.4 % Normal . [facility] Comment on above: Performed By: #### S CAN CBC, BMP #### [facility] [address] [place] [address] [place] Eosinophils (Bld) [#/Vol] 0.1 10*3/uL Normal 0.0-0.45 [facility] Comment on above: Performed By: #### S CAN CBC, BMP #### [facility] [address] [place] [address] [place] Eosinophils/100 WBC (Bld) 0.3 % Normal . [facility] Comment on above: Performed By: #### S CAN CBC, BMP #### [facility] [address] Erythrocyte distribution width (RBC) [Ratio] 13.9 % Normal 12.0-14.8 [facility] Comment on above: Performed By: #### S CAN CBC, BMP #### [facility] [address] [place] [address] Hematocrit (Bld) [Volume fraction] 40.8 % Normal 38.8-50.0 [facility] Comment on above: Performed By: #### S CAN CBC, BMP #### [address] Hemoglobin (Bld) [Mass/Vol] 13.4 g/dL Normal 13.0-17.0 [facility] Comment on above: Performed By: #### S CAN CBC, BMP #### [address] Large Platelets Slight Normal [facility] Comment on above: Result Comment: PERF ORMED BY: [place] [address] PATHOLOGIST INSPECTOR PENETRANT CAREN DALEY M.D. Performed By: #### S CAN CBC, BMP #### [address] Lymphocytes (Bld) [#/Vol] 2.9 10*3/uL Normal 1.00-4.8 [facility] Comment on above: Performed By: #### S CAN CBC, BMP #### [address] Lymphocytes/100 WBC (Bld) 17.7 % Normal . [facility] Comment on above: Performed By: #### S CAN CBC, BMP #### [address] MCH (RBC) [Entitic mass] 28.9 pg Normal 27.5-35.2 [facility] Comment on above: Performed By: #### S CAN CBC, BMP #### [place] [address] [place] MCV (RBC) [Entitic vol] 88.0 fL Normal 83.5-101 [facility] Comment on above: Performed By: #### S CAN CBC, BMP #### [address] Mean Corpuscular HGB Conc 32.8 g/dL Normal 32.5-35.6 [facility] Comment on above: Performed By: #### S CAN CBC, BMP #### [address] Microcytosis Slight Normal [facility] Comment on above: Performed By: #### S CAN CBC, BMP #### [address] Monocytes (Bld) [#/Vol] 1.3 10*3/uL High 0.0-0.8 [facility] Comment on above: Performed By: #### S CAN CBC, BMP #### [address] Monocytes/100 WBC (Bld) 8.3 % Normal . [facility] Comment on above: Performed By: #### S CAN CBC, BMP #### [address] Neutrophils (Bld) [#/Vol] 11.9 10*3/uL High 1.8-7.7 [facility] Comment on above: Performed By: #### S CAN CBC, BMP #### [address] Neutrophils/100 WBC (Bld) 73.3 % Normal . [facility] Comment on above: Performed By: #### S CAN CBC, BMP #### [address] NRBC% 0.1 /100{WBC} Normal 0-0.5 [facility] Comment on above: Performed By: #### S CAN CBC, BMP #### [address] Ovalocytes Slight Normal [facility] Comment on above: Performed By: #### S CAN CBC, BMP #### [address] Platelet Estimate Normal Normal Normal [facility] Comment on above: Performed By: #### S CAN CBC, BMP #### [address] Platelet mean volume (Bld) [Entitic vol] 7.4 fL Normal 6.6-10.1 [facility] Comment on above: Performed By: #### S CAN CBC, BMP #### [facility] [address] Platelet Morphology Normal Normal Normal [facility] Comment on above: Performed By: #### S CAN CBC, BMP #### [facility] [address] [place] [address] [place] Platelets (Bld) [#/Vol] 364 10*3/uL Normal 150-450 [facility] Comment on above: Performed By: #### S CAN CBC, BMP #### [facility] [address] Poikilocytosis Slight Normal [facility] Comment on above: Performed By: #### S CAN CBC, BMP #### [facility] [address] RBC (Bld) [#/Vol] 4.64 10*6/uL Normal 3.90-5.60 [facility] Comment on above: Performed By: #### S CAN CBC, BMP #### [facility] [address] WBC (Bld) [#/Vol] 16.2 10*3/uL High 4.1-10.5 [facility] Comment on above: Performed By: #### S CAN CBC, BMP #### [facility] [address] Serum or plasma anion gap de terminationOrdered By: Arden Marin on 12-19-2023 Anion gap [Moles/Vol] 9.1 mmol/L 6.0-15.0 [facility] Sodium [Moles/volume] in Ser um or PlasmaOrdered By: Arden Marin on 12-19-2023 Sodium [Moles/Vol] 134 mmol/L 136-145 [facility] Urea nitrogen [Mass/volume] in Serum or PlasmaOrdered By: Arden Marin on 12-19-2023 Urea nitrogen [Mass/Vol] 23 mg/dL 7-25 [facility] WBC Auto (Bld) [#/Vol]Ordere d By: Arden Marin on 12-19-2023 WBC (Bld) [#/Vol] 16.2 10*3/uL 4.1-10.5 [facility] Consultation Noteon 10-12-19 Consultation Note [id number]#1. 00TIFF [facility] CNOVon 10-11-2023 CNOV Office Visit (RADTSA ) JOSE CAN ([id number]) 1940 M Date Time Provider Department 10/11/23 9:15 AM Jc MENDIOLA During your visit today, we recorded the following information about you: Temperature Pulse Respiration Blood pressure 97.3 degrees 87/minute 16/minute 125/67 Weight 86 kg Jc Mendiola MD 10/11/2023 9:38 AM Signed Radiation Oncology - Follow Up Note PATIENT NAME: Jose Can PATIENT DIAGNOSIS: Prostate adenocarcinoma, initial PSA 3.1, biopsy [place] score 3 + 4 = 7 (grade [...] ASSESSMENT/PLAN: Prostate adenocarcinoma, initial PSA 3.1, biopsy [place] score 3 + 4 = 7 (grade [...] Mendiola MD cc: Martir Herbert II, MD [address] [place] [address] Debra Anthony LPN 10/11/2023 9:38 AM Signed AUA= 5 Allergies As of Date: 10/11/2023 Noted Allergy Reaction PENICILLINS 02/16/2023 2 - Rash SULFA (SULFONAMIDE ANTIBIOTICS) 02/16/2023 2 - Rash Date Reviewed: 09/19/2023 Reviewed by: Debra Quinn LPN - Fully Assessed Primary Visit Diagnosis:Malignant neoplasm of prostate (HCC) [C61] Order(s):PSA (OUTSIDE) [8324019] Order #: [id number] PSA/PROSTSPECAG DIAG [SQPSA] Order #: [id number] FUTURE Prescriptions as of 10/11/2023 - simvastatin [...] for Encounter Date Provider Department Center 10/11/2023 [id number] MENDIOLAY Encounter Status:Closed by Jc MENDIOLA on 10/11/[address] [facility] Consult[facility] Note[facility] 10-09-19 Consultation Note [id number]# 1.00TIFF Normal [facility] ED Note-Physicianon 10-09-19 ED Note-Physician [id number]#1. 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 Take jgnh-xmq-ikfxdtr or prescription medicines. ? Eat foods that are high in fiber, such as beans, whole grains, and fresh fruits and vegetables. ? Limit foods that are high in fat and processed sugars, such as fried or sweet foods. General instructions ? Take zhyx-kpr-aahtmvw and prescription medicines only as told by [...] away if: (more content not included)... Normal [facility] Urology Office/Clinic Noteon 10-08-2023 Urology Office/Clinic [...] 09/12/23 in our office. Then presented to [facility] ER due to inability to urinate [...] (7 mm x 4mm). TRUS/bx 01/16/23 - [place] 6 (3+3) in 4 cores and Alpa [...] our office after brachytherapy. Then presented to [facility] ER due to inability to urinate after catheter removal. Bladder scan was >500mL. Dc'd home with Mendoza catheter in place. Came to our office 09/21/23 for catheter removal per approval of PRW. Reports he has not had any issues urinating since. Follow-up With When Contact Information LADAN EDWARDS, Abran Darling, URL [facility] [address], [place] [address] [phone] Additional Instructions: 3 mos w/ PSA Patient Education Brachytherapy for Prostate Cancer, Care After I, Michaela Herbert, personally scribed for Dr. Ochoa on 10/08/2023 10:35:10. . Documentation recorded by the scribeMichaela, accurately reflects the services(s) I performed and [...] Hiatus hernia rep (more content not included)... [facility] Comment on above: Result Comment: Elec [...] Follow-Up Appointments Sunday 9:30 AM EST With: Abran OCHOA MD Where: [facility] Normal [address] [place] [address] [place] [address]- \.br\ Medications\.b r\ What When Instructions\. br\ [...] for choosing us for your care.\.br\ \.br\ [facility] CNOVon 09-19-2023 CNOV Office Visit (RADTSA ) JOSE CAN ([id number]) 1940 M Date Time Provider Department 09/19/23 [...] ASSESSMENT/PLAN: Prostate adenocarcinoma, initial PSA 3.1, biopsy [place] score 3 + 4 = 7 (grade [...] Mendiola MD cc: Martir Herbert II, MD [address] [place] [address] No referring provider defined for this encounter. Allergies As of Date: 09/19/2023 Noted Allergy Reaction PENICILLINS 02/16/2023 2 - Rash SULFA (SULFONAMIDE ANTIBIOTICS) 02/16/2023 2 - Rash Date Reviewed: 09/19/2023 Reviewed by: Debra Quinn LPN - Fully Assessed Reason for Visit: Prostate Cancer [590] Primary Visit Diagnosis:Malignant neoplasm of prostate (HCC) [C61] Order(s):PSA/PROSTSPE CAG DIAG [SQPSA] Order #: [id number] FUTURE Prescriptions as of 09/19/2023 - simvastatin [...] for Encounter Date Provider Department Center 09/19/2023 [id number] MENDIOLA [facility] Encounter Status:Closed by Jc MENDIOLA on 09/19/23 [facility] Ambulatory Visit Summaryon 1 11-13-2022 Ambulatory Visit Summary CANRENOJOSE J :1940 Visit Date:09/12/2023 Ambulatory Visit Instructions [...] EDWARDS, Abran Darling Where: [facility] [address] [place] [address]- \.br\ Medications\.b r\ What When Instructions\. br\ [...] for choosing us for your care.\.br\ \.br\ [facility] Lab Reportson 09-07-2023 Lab Reports [id number]#1 .00TIFF [facility] Operative Reporton Operative Report [id number]#1 .00TIFF [facility] RAD - MISCon 09-07-2023 RAD - MISC [id number]#1 .00TIFF Normal [facility] CNOVon 09-06-2023 CNOV Office Visit (RADTSA ) JOSE CAN ([id number]) 1940 M Date Time Provider Department 09/06/23 9:00 AM Jc MENDIOLA During your visit today, we recorded the following information about you: Jc Mendiola MD 09/06/2023 3:18 PM Signed Date: 09/06/23 Facility: [facility] Procedure: prostate transperineal brachytherapy implant Diagnosis: [...] seen, results documented. Edilma Mendiola MD [facility] Allergies As of Date: 09/06/2023 Noted [...] Encounter Status:Closed by Jc MENDIOLA on 09/06/23 [facility] Consultation Noteon 08-10-20 Consultation Note [id number]#1 .00TIFF [facility] 07-24-2023 [facility] Telephone (RADTSA) JOSE CAN ([id number]) 1940 M Date Time Provider Department 07/24/23 Jc MENDIOLA During your visit today, we recorded the following information about you: Debra Quinn LPN 07/24/2023 10:01 AM Signed Christina with Dr. 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 [place]o now needs to cardiac clearance and the first available appointment with Dr. Srivastava isn't until 08/06/23. Brachytherapy appointment rescheduled from 08/02/23 to 09/06/23. I left a message for [place] to call me back to notify him that we will him an updated schedule. NATALIO Rutherford Ariana, LPN 07/25/2023 11:27 AM Signed Enriqueta, pt's dtr, returned my call and [...] Status:Closed by DEBRA QUINN on 07/25/23 Normal [facility] ECG 12-Leadon 07-24-2023 ECG 12-Lead [id number]#1 .00TIFF Normal [facility] Formson 07-24-2023 Forms [id number]#1 .00TIFF Normal [facility] ECG 12-Leadon 07-20-2023 ECG 12-Lead [id number]#1 .00TIFF Normal [facility] Lab Reportson 07-20-2023 Lab Reports [id number]#1. 00TIFF Normal [facility] Lab Reports [id number] 0 [id number] #1.00TIFF Normal [facility] Lab Reports [id number]#1. 00TIFF Normal [facility] RAD - MISCon 07-20-2023 RAD - MISC [id number]#1. 00TIFF Normal [facility] CNOVon 07-11-2023 CNOV Office Visit (RADTSA ) JOSE CAN ([id number]) 1940 Date Time Provider Department 07/11/23 11:30 [...] Encounter Status:Closed by Jc MENDIOLA on 07/12/23 [facility] JOSE CAN ([id number]) 1940 M Date Time Provider Department 06/04/23 Jc MENDIOLA [employer] During your visit today, we recorded the [...] 81 mg by mouth once daily. - [facility] PRODUCT Eye and vision supplement Problem List As Of Date: 06/04/2023 (None) Encounter Status:Closed by NICHELLE ELKINS on 06/04/23 [facility] 05-29-2023 L - -------- Specimen: [id number] Received: 05/29/23 Status: JORGEGilmar Capellan Num: [id number] Spec Type: Surgical Subm Dr: Juan Jiang MD Tissues: A Colon Biopsy (ASCENDING POLYP) Procedures: HENOK/Josselin, Gross/Micro L4 -------- Age/ Patient Sex Location Account Attending Physician -------- Jose Can /M [id number] Juan Jiang MD -------- SPEC NUM: [id number] RECD: 05/29/23 STATUS: RANDI CAPELLAN NUM: [id number] FAIZAN: 05/29/23 DR: Juan Jiang MD ENTERED: 05/29/23 [facility] DR: IRVIN TYPE: Surgical DEPT: S [...] microscopic examination confirms the diagnosis. CPT Codes 82073 -------- -------- Specimen: [id number] Received: 05/29/23 Status: RANDI Capellan Num: [id number] Spec Type: Surgical Subm Dr: Juan Jiang MD Tissues: A Colon Biopsy (ASCENDING POLYP) Procedures: HE/2, Gross/Micro L4 -------- Patient: Jose Can [id number] (Continued) -------- Signed (signature on file) Kashmir Linares MD 05/31/23 2342 Normal [facility] CNPRosa Isela 05-02-2023 CNPN Telephone (RADTSA) JOSE CAN ([id number]) 1940 M Date Time Provider Department 05/02/23 [...] colonoscopy was done per Dr Franco at [facility] in 2016. It was normal. Dr [...] prostate seed implant surgery. Thank you NATALIO Woodosn Tiffany 05/03/2023 10:14 AM Signed Faxed ref [...] Status:Closed by NICHELLE ELKINS on 05/29/23 Normal [facility] Creatinine (Bld) [Mass/Vol]O rdered By: Abran Ochoa on 12-19-2022 Creatinine [Mass/Vol] 0.9 mg/dL 0.6-1.3 [facility] Comment on above: ER/ESD physician is notified/shown all ISTAT results.Critical values may be confirmed by laboratory testing ifdeemed necessary by ER attending doctor. PSA, FREE AND TOTAL RATIOon 10-18-2022 % Free PSA 21.9 % Normal [facility] Comment on above: Result Comment: The table [...] men. Performed By: #### P SAFREE #### [facility] [address] [place] [address] Dr. Deisi Bush Prostate specific Ag [Mass/Vol] 3.1 ng/mL Normal 0.0-4.0 [facility] Comment on above: Result Comment: Cris PRAJAPATI methodology. . According to the [employer], Serum PSA should decrease and [...] disease. Performed By: #### P SAFREE #### [facility] [address] [place] [address] Dr. Deisi Bush PSA, Free 0.68 ng/mL Normal N/A [facility] Comment on above: Result Comment: Cris PRAJAPATI methodology. Performed By: #### P SAFREE #### [facility] [address] [place] [address] Dr. Deisi Bush CBC AUTO DIFFon 03-04-2022 BASO # 0.0 103/ul Normal 0.0-0.1 [facility] Comment on above: Performed By: #### C BC #### [facility] [address] [place] [address] Dr. Deisi Bush Basophils/100 WBC (Bld) 0.6 % Normal 0.2-2.0 [facility] Comment on above: Performed By: #### C BC #### [facility] [address] [place] [address] Dr. Deisi Bush EO # 0.5 103/ul Normal 0.0-0.7 [facility] Comment on above: Performed By: #### C BC #### [facility] [address] [place] [address] Dr. Deisi Bush Eosinophils/100 WBC (Bld) 10.2 % Critically high 0.9-7.0 [facility] Comment on above: Performed By: #### C BC #### [facility] [address] [place] [address] Dr. Deisi Bush Erythrocyte distribution width (RBC) [Ratio] 13.4 % Normal 11.0-15.0 [facility] Comment on above: Performed By: #### C BC #### [facility] [address] [address] [address] Deisi Bush Hematocrit (Bld) [Volume fraction] 42.3 % Normal 42.0-54.0 [facility] Comment on above: Performed By: #### C BC #### [facility] [address] [address] [address] Deisi Bush Hemoglobin (Bld) [Mass/Vol] 14.1 g/dL Normal 14.0-18.0 [facility] Comment on above: Performed By: #### C BC #### [facility] [address] [place] [address] Dr. Deisi Bush IG # 0.01 10e3/ul Normal 0.00-0.03 [facility] Comment on above: Performed By: #### C BC #### [facility] [address] [place] [address] Dr. Deisi Bush IG % 0.2 % Normal 0.0-0.5 [facility] Comment on above: Performed By: #### C BC #### [facility] [address] [place] [address] Dr. Deisi Bush LYMPH # 2.4 103/ul Normal 1.2-3.8 [facility] Comment on above: Performed By: #### C BC #### [facility] [address] [place] [address] Dr. Deisi Bush Lymphocytes/100 WBC (Bld) 46.5 % Normal 20.5-60.0 [facility] Comment on above: Performed By: #### C BC #### [facility] [address] [place] [address] Dr. Deisi Bush MANUAL DIFF REQ NO Normal [facility] Comment on above: Performed By: #### C BC #### [facility] [address] [place] [address] Dr. Deisi Bush MCH (RBC) [Entitic mass] 30.5 pg Normal 25.9-34.0 [facility] Comment on above: Performed By: #### C BC #### [facility] [address] [address] [address] Deisi Bush MCHC (RBC) [Mass/Vol] 33.3 g/dL Normal 29.9-35.2 [facility] Comment on above: Performed By: #### C BC #### [facility] [address] [address] [address] Deisi Bush MCV (RBC) [Entitic vol] 91.4 fL Normal 80.0-94.0 [facility] Comment on above: Performed By: #### C BC #### [facility] [address] [address] [address] Deisi Bush MONO # 0.6 103/ul Normal 0.3-0.8 [facility] Comment on above: Performed By: #### C BC #### [facility] [address] [address] [address] Deisi Bush Monocytes/100 WBC (Bld) 10.6 % Normal 1.7-12.0 [facility] Comment on above: Performed By: #### C BC #### [facility] [address] [address] [address] Deisi Bush NEUT # 1.7 103/ul Normal 1.4-6.5 [facility] Comment on above: Performed By: #### C BC #### [facility] [address] [address] [address] Deisi Bush Neutrophils/100 WBC (Bld) 31.9 % Critically low 43.0-75.0 [facility] Comment on above: Performed By: #### C BC #### [facility] [address] [address] [address] Deisi Bush Platelet mean volume (Bld) [Entitic vol] 9.2 fL Critically low 9.5-13.5 [facility] Comment on above: Performed By: #### C BC #### [facility] [address] [address] [address] Deisi Bush PLT 219 103/ul Normal 150-450 [facility] Comment on above: Performed By: #### C BC #### [facility] [address] [address] [address] Deisi Bush RBC 4.63 106/ul Critically low 4.70-6.[address] [facility] Comment on above: Performed By: #### C BC #### [facility] [address] [address] [address] Deisi Bush WBC 5.2 103/ul Normal 4.0-11.0 [facility] Comment on above: Performed By: #### C BC #### [facility] [address] [place] [address] Dr. Deisi Bush LIPID PROFILEon 03-04-2022 CHOL-HDL RATIO NORM SEE BELOW Normal [facility] Comment on above: Result Comment: 3.3 - 4.4 LOW RISK 4.4 - 7.1 AVERAGE RISK 7.1 - 11.0 MODERATE RISK >11.0 HIGH RISK Performed By: #### T SH, LIPID, CMP #### [facility] [address] [place] [address] Dr. Deisi Bush Cholesterol [Mass/Vol] 125 mg/dL Normal <=200 Th [facility] Comment on above: Performed By: #### T SH, LIPID, CMP #### [facility] [address] [place] [address] Dr. Deisi Bush Cholesterol in HDL [Mass/Vol] 37 mg/dL Critically low 40-60 [facility] Comment on above: Performed By: #### T SH, LIPID, CMP #### [facility] [address] [place] [address] Dr. Deisi Bush Cholesterol in LDL [Mass/Vol] 75.6 mg/dL Normal [facility] Comment on above: Performed By: #### T SH, LIPID, CMP #### [facility] [address] [place] [address] Dr. Deisi Bush Cholesterol.total/Chol esterol in HDL [Mass ratio] 3.4 {ratio} Normal [facility] Comment on above: Performed By: #### T SH, LIPID, CMP #### [facility] [address] [place] [address] Dr. Deisi Bush HDL NORMAL > or = 60 mg/dl - LO W CARDIOVASCULAR RISK <40 mg/dl - HIGH CARDIOVASCULAR RISK Normal [facility] Comment on above: Performed By: #### T SH, LIPID, CMP #### [facility] [address] [address] [address] Deisi Bush LDL CALC NORMAL SEE BELOW Normal [facility] Comment on above: Result Comment: <100 mg/dl OPTIMAL 100 - 129 mg/dl NEAR OR ABOVE OPTIMAL 130 - 159 mg/dl BORDERLINE HIGH 160 - 189 mg/dl HIGH >190 mg/dl VERY HIGH Performed By: #### T SH, LIPID, CMP #### [facility] [address] [address] [address] Deisi Bush Triglyceride [Mass/Vol] 62 mg/dL Normal <=150 [facility] Comment on above: Performed By: #### T SH, LIPID, CMP #### [facility] [address] [place] [address] Dr[address] Deisi Bush VLDL CALC 12.4 mg/dL Normal [facility] Comment on above: Performed By: #### T SH, LIPID, CMP #### [facility] [address] [address] [address] Deisi Bush PROF 14(COMP METB)on 022 Albumin [Mass/Vol] 3.4 g/dL Normal 3.4-5.0 [facility] Comment on above: Performed By: #### T SERGIO, LIPID, CMP #### [facility] [address] [address] [address] Deisi Bush Albumin/Globulin [Mass ratio] 0.9 {ratio} Normal [facility] Comment on above: Performed By: #### T SH, LIPID, CMP #### [facility] [address] [address] [address] Deisi Bush ALP [Catalytic activity/Vol] 73 U/L Normal 46-116 [facility] Comment on above: Performed By: #### T SH, LIPID, CMP #### [facility] [address] [address] [address] Deisi Bush ALT [Catalytic activity/Vol] 27 U/L Normal 16-63 [facility] Comment on above: Performed By: #### T SH, LIPID, CMP #### [facility] [address] [address] [address] Deisi Bush Anion gap [Moles/Vol] 11.6 mmol/L Normal Th [facility] Comment on above: Performed By: #### T SH, LIPID, CMP #### [facility] [address] [address] [address] Deisi Bush AST [Catalytic activity/Vol] 22 U/L Normal 15-37 [facility] Comment on above: Performed By: #### T SH, LIPID, CMP #### [facility] [address] [address] [address] Deisi Bush Bilirubin [Mass/Vol] 1.1 mg/dL Critically high 0.2-1.0 [facility] Comment on above: Performed By: #### T SH, LIPID, CMP #### [facility] [address] [place] [address] Dr. Deisi Bush Calcium [Mass/Vol] 8.7 mg/dL Normal 8.5-10.1 [facility] Comment on above: Performed By: #### T SH, LIPID, CMP #### [facility] [address] [place] [address] Dr. Deisi Bush Chloride [Moles/Vol] 105 mmol/L Normal 98-107 [facility] Comment on above: Performed By: #### T SH, LIPID, CMP #### [facility] [address] [place] [address] Dr. Deisi Bush CO2 [Moles/Vol] 27.6 mmol/L Normal 21.0-32.0 [facility] Comment on above: Performed By: #### T SH, LIPID, CMP #### [facility] [address] [place] [address] Dr. Deisi Bush Creatinine [Mass/Vol] 0.90 mg/dL Normal 0.70-1.30 [facility] Comment on above: Performed By: #### T SH, LIPID, CMP #### [facility] [address] [place] [address] Dr. Deisi Bush EGFR-AF INDONESIAN >60 Normal >=60 [facility] Comment on above: Performed By: #### T SH, LIPID, CMP #### [facility] [address] [place] [address] Dr. Deisi Bush EGFR-NON AF INDONESIAN >60 Normal >=60 [facility] Comment on above: Performed By: #### T SH, LIPID, CMP #### [facility] [address] [place] [address] Dr. Deisi Bush Globulin (S) [Mass/Vol] 3.6 g/dL Normal [facility] Comment on above: Performed By: #### T SH, LIPID, CMP #### [facility] [address] [place] [address] Dr. Deisi Bush Glucose [Mass/Vol] 96 mg/dL Normal 74-106 [facility] Comment on above: Performed By: #### T SH, LIPID, CMP #### [facility] [address] [place] [address] Dr. Deisi Bush Potassium [Moles/Vol] 4.2 mmol/L Normal 3.5-5.1 [facility] Comment on above: Performed By: #### T SH, LIPID, CMP #### [facility] [address] [place] [address] Dr. Deisi Bush Protein [Mass/Vol] 7.0 g/dL Normal 6.4-8.2 [facility] Comment on above: Performed By: #### T SH, LIPID, CMP #### [facility] [address] [place] [address] Dr. Deisi Bush Sodium [Moles/Vol] 140 mmol/L Normal 136-145 [facility] Comment on above: Performed By: #### T SH, LIPID, CMP #### [facility] [address] [place] [address] Dr. Deisi Bush Urea nitrogen [Mass/Vol] 16.0 mg/dL Normal 7.0-18.0 [facility] Comment on above: Performed By: #### T SH, LIPID, CMP #### [facility] [address] [place] [address] Dr. Deisi Bush Urea nitrogen/Creatinine [Mass ratio] 17.8 mg/mg Normal [facility] Comment on above: Performed By: #### T SH, LIPID, CMP #### [facility] [address] [address] [address] Deisi Bush TSHon 03-04-2022 TSH 1.259 uIU/mL Normal 0.358-3.740 [facility] Comment on above: Performed By: #### T SH, LIPID, CMP #### [facility] [address] [address] [address] Deisi Bush TSH RANGE SEE BELOW Normal [facility] Comment on above: Result Comment: <0.3 4 UIU/ml HYPERTHYROID 0.34-5.60 UIU/ml EUTHYROID >5.60 UIU/ml HYPOTHYROID Performed By: #### T SH, LIPID, CMP #### [facility] [address] [address] [address] Deisi Bush Lipid Panelon 09-21-2021 Cholesterol [Mass/Vol] 181 mg/dL Normal 125-200 No rthern [facility] Comment on above: Result Comment: Low risk < 200mg/dL Borderline risk 201-239 mg/dl High risk > or equal to 240 Performed By: #### L IPD #### [facility] [address] [place], [place] [id number] Cholesterol in HDL [Mass/Vol] 41 mg/dL Normal >40 [facility] Comment on above: Result Comment: High Cardiovascular Risk HDL <40 mg/dL Low Cardiovascular Risk HDL > or equal to 60 mg/dl Performed By: #### L IPD #### [facility] [address] [place], [place] [id number] Cholesterol in LDL [Mass/Vol] 126 mg/dL Normal [facility] Comment on above: Result Comment: LDL ATP III CLASSIFICATION LDL less than 100 mg/dl Optimal LDL 100-129 mg/dl Near or above optimal LDL 130-159 Borderline high LDL 160-189 High LDL greater than 189 mg/dl Very High Performed By: #### L IPD #### [facility] [address] [place] [id number] Cholesterol in VLDL [Mass/Vol] 14 mg/dL Normal [facility] Comment on above: Performed By: #### L IPD #### [facility] [address] [place], [place] [id number] Cholesterol.total/Chol esterol in HDL [Mass ratio] 4 {ratio} Normal [facility] Comment on above: Performed By: #### L IPD #### [facility] [address] [place], [place] [id number] Triglyceride [Mass/Vol] 72 mg/dL Normal 30-150 [facility] Comment on above: Result Comment: TRIG ATPIII CLASSIFICATIONS TRIG less than 150 mg/dl Normal TRIG 150-199 mg/dl Borderline High TRIG 200-500 mg/dl High TRIG greather than 500 mg/dl Very High Performed By: #### L IPD #### [facility] [address] [place], [place] [id number] PSA SCREEN (MEDICARE)on 08-25 TPSA 3.110 ng/mL Normal <4.000 [facility] Comment on above: Result Comment: PSA Test Method: ECLIA/Saw e 601 Performed By: #### P SA MC #### [facility] [address] [place], [place] [id number] Vital Signs Date Time Vital Sign Value Performing Clinician Facility 07-04-2024 09:16-0400 Blood Pressure Location Abran OCHOA [facility] 07-04-2024 09:16-0400 Body temperature 98.6 [degF] Abran OCHOA [facility] 07-04-2024 09:16-0400 Diastolic blood pressure 77 mm[Hg] Abran OCHOA [facility] 07-04-2024 09:16-0400 Heart rate 64 /min Abran OCHOA [facility] 07-04-2024 09:16-0400 Respiratory rate 17 /min Abran OCHOA [facility] 07-04-2024 09:16-0400 Systolic blood pressure 131 mm[Hg] Abran OCHOA [facility] 04-10-2024 09:29-0400 Body mass index (BMI) [Ratio] 27.77 kg/m2 KENDRICK Mendiola MD Work Phone: [facility] 04-10-2024 09:29-0400 Body temperature 97.39 [degF] KENDRICK Mendiola MD Work Phone: [facility] 04-10-2024 09:29-0400 Body weight 85.3 kg KENDRICK Mendiola MD Work Phone: [facility] 04-10-2024 09:29-0400 Diastolic blood pressure 78 mm[Hg] KENDRICK Mendiola MD Work Phone: [facility] 04-10-2024 09:29-0400 Heart rate 71 /min KENDRICK Mendiola MD Work Phone: [facility] 04-10-2024 09:29-0400 Respiratory rate 18 /min KENDRICK Mendiola MD Work Phone: [facility] 04-10-2024 09:29-0400 SaO2% (BldA) [Mass fraction] 96 % KENDRICK Mendiola MD Work Phone: [facility] 04-10-2024 09:29-0400 Systolic blood pressure 152 mm[Hg] KENDRICK Mendiola MD Work Phone: [facility] 12-28-2023 08:06-0400 Blood Pressure Location Abran OCHOA [facility] 12-28-2023 08:06-0400 Diastolic blood pressure 87 mm[Hg] Abran OCHOA [facility] 12-28-2023 08:06-0400 Heart rate 51 /min Abran OCHOA [facility] 12-28-2023 08:06-0400 Respiratory rate 16 /min Abran OCHOA [facility] 12-28-2023 08:06-0400 Systolic blood pressure 131 mm[Hg] Abran OCHOA [facility] 12-19-2023 09:30-0400 Diastolic blood pressure 89 mm[Hg] II Martir Herbert Work Phone: [facility] 12-19-2023 09:30-0400 Heart rate 51 /min II Martirheraclio Herbert Work Phone: [facility] 12-19-2023 09:30-0400 Respiratory rate 16 /min II Martirheraclio Herbert Work Phone: [facility] 12-19-2023 09:30-0400 SaO2% (BldA) [Mass fraction] 97 % II Martir Herbert Work Phone: [facility] 12-19-2023 09:30-0400 Systolic blood pressure 165 mm[Hg] II Martir Herbert Work Phone: [facility] 12-19-2023 07:04-0400 Body height 175.26 cm II Martir Herbert Work Phone: [facility] 12-19-2023 07:04-0400 Body mass index (BMI) [Ratio] 28.8 kg/m2 II Martir Herbert Work Phone: [facility] 12-19-2023 07:04-0400 Body weight 88.45 kg II Martirheraclio Herbert Work Phone: [facility] 12-19-2023 06:22-0400 Body temperature 97.6 [degF] II Martir Herbert Work Phone: [facility] 12-18-2023 11:59-0400 Body height 175.26 cm [facility] 12-18-2023 11:59-0400 Body mass index (BMI) [Ratio] 26.6 kg/m2 [facility] 12-18-2023 11:59-0400 Body temperature 97.6 [degF] [facility] 12-18-2023 11:59-0400 Body weight 81.64 kg [facility] 12-18-2023 11:59-0400 Diastolic blood pressure 72 mm[Hg] [facility] 12-18-2023 11:59-0400 Heart rate 62 /min [facility] 12-18-2023 11:59-0400 Respiratory rate 16 /min [facility] 12-18-2023 11:59-0400 SaO2% (BldA) [Mass fraction] 98 % [facility] 12-18-2023 11:59-0400 Systolic blood pressure 120 mm[Hg] [facility] 10-08-2023 09:53-0500 Blood Pressure Location Abran OCHOA [facility] 10-08-2023 09:53-0500 Diastolic blood pressure 74 mm[Hg] Abran OCHOA [facility] 10-08-2023 09:53-0500 Heart rate 72 /min Abran OCHOA [facility] 10-08-2023 09:53-0500 Respiratory rate 16 /min Abran OCHOA [facility] 10-08-2023 09:53-0500 Systolic blood pressure 130 mm[Hg] Abran OCHOA [facility] 05-29-2023 09:10-0400 Diastolic blood pressure 67 mm[Hg] MANGO Herbert Work Phone: [facility] 05-29-2023 09:10-0400 Heart rate 51 /min MANGO Herbert Work Phone: [facility] 05-29-2023 09:10-0400 Respiratory rate 16 /min II Martir Herbert Work Phone: [facility] 05-29-2023 09:10-0400 SaO2% (BldA) [Mass fraction] 96 % II Martir Herbert Work Phone: [facility] 05-29-2023 09:10-0400 Systolic blood pressure 131 mm[Hg] II Martir Herbert Work Phone: [facility] 05-29-2023 07:30-0400 Body height 175.26 cm II Martir Herbert Work Phone: [facility] 05-29-2023 07:30-0400 Body temperature 98 [degF] II Martir Herbert Work Phone: [facility] 05-29-2023 07:30-0400 Body weight 81.64 kg II Martir Herbert Work Phone: [facility] 02-05-2023 08:47-0400 Diastolic blood pressure 80 mm[Hg] Abran OCHOA [facility] 02-05-2023 08:47-0400 Mean blood pressure 103 mm[Hg] Abran OCHOA [facility] 02-05-2023 08:47-0400 Systolic blood pressure 150 mm[Hg] Abran OCHOA [facility] 02-05-2023 08:42-0400 Blood Pressure Location Abran OCHOA [facility] 02-05-2023 08:42-0400 Diastolic blood pressure 80 mm[Hg] Abran OCHOA [facility] 02-05-2023 08:42-0400 Heart rate 53 /min Abran OCHOA [facility] 02-05-2023 08:42-0400 Systolic blood pressure 154 mm[Hg] Abran OCHOA [facility] 12-19-2022 06:51-0400 Body height 177.8 cm II Martir Herbert Work Phone: [facility] 12-19-2022 06:51-0400 Body weight 81.64 kg II Martir Herbert Work Phone: [facility] 12-04-2022 12:26-0400 Blood Pressure Location Abran OCHOA [facility] 12-04-2022 12:26-0400 Diastolic blood pressure 70 mm[Hg] Abran OCHOA [facility] 12-04-2022 12:26-0400 Heart rate 64 /min Abran OCHOA [facility] 12-04-2022 12:26-0400 Systolic blood pressure 149 mm[Hg] Abran OCHOA [facility] Encounters Encounter Date Encounter Type Care Provider Facility Start: 07-06-2025 [facility] Start: 09-25-2024 End: 09-25-2024 Clinisync Result Encounter Generic External Data Provider [facility] Unsolicited Start: 09-25-2024 End: 09-25-2024 Clinisync Result Encounter Generic External Data Provider [facility] External Department Unsolicited Start: 07-14-2024 End: 07-14-2024 Clinisync Result Encounter Generic External Data Provider [facility] External Department Unsolicited Start: 07-14-2024 End: 07-14-2024 Clinisync Result Encounter Generic External Data Provider [facility] External Department Unsolicited Start: 07-04-2024 End: 07-04-2024 ambulatory Abran OCHOA Facility:[facility] Start: 07-04-2024 End: 07-04-2024 Patient encounter procedure Abran OCHOA [facility] Start: 07-01-2024 End: 07-01-2024 Clinisync Result Encounter [...] 04-10-2024 End: 04-10-2024 ambulatory MARTIR HERBERT II Facility:[facility] Start: 03-26-2024 End: 03-26-2024 ambulatory MARTIR HERBERT Not Available Start: 12-28-2023 End: 12-28-2023 ambulatory Abran OCHOA Facility:[facility] Start: 12-28-2023 End: 12-28-2023 Patient encounter procedure Abran OCHOA [facility] Start: 12-20-2023 End: 12-20-2023 ambulatory MARTIR HERBERT Not Available Start: 12-19-2023 Non-patient / Non-visit II Domenic Herbert Work Phone: [facility] Vascular Surgery Work Phone: Start: 12-19-2023 End: 12-19-2023 ambulatory Armani Kelly Facility:[facility] Start: 12-19-2023 End: 12-19-2023 Admission to same day surgery center II Martir Herbert Work Phone: [facility] [place] Start: 12-19-2023 End: 12-19-2023 ambulatory II Martir Herbert Work Phone: [facility] Work Phone: Start: 12-18-2023 End: 12-18-2023 ambulatory [facility] Work Phone: Start: 12-18-2023 End: 12-18-2023 Patient encounter procedure [facility] Vascular Surgery Work Phone: Start: 12-06-2023 End: 12-06-2023 ambulatory MARTIR HERBERT Not Available Start: 11-14-2023 End: 11-14-2023 ambulatory MARTIR HERBERT Not Available Start: 10-11-2023 End: 10-11-2023 ambulatory MARTIR HERBERT II Facility:[facility] Start: 10-08-2023 End: 10-08-2023 ambulatory Abran OCHOA Facility:[facility] Start: 10-08-2023 End: 10-08-2023 Patient encounter procedure [facility]CHO[facility] Start: 10-03-2023 End: 10-03-2023 ambulatory MARTIR HERBERT II Facility:[facility] Start: 10-03-2023 End: 10-03-2023 Subsequent hospital visit by physician [facility] Scan Yunier Lewis Work Phone: Radiology [facility] Start: 09-21-2023 End: 09-21-2023 ambulatory Abran OCHOA Facility:[facility] [place] Start: 09-21-2023 End: 09-21-2023 Patient encounter procedure [facility] Start: 09-19-2023 End: 09-19-2023 ambulatory MARTIR HERBERT II Facility:[facility] Start: 09-12-2023 End: 09-12-2023 ambulatory Abranvalentin OCHOA Facility:[facility] Start: 09-12-2023 End: 09-12-2023 Patient encounter procedure Abranvalentin OCOHA [facility] Start: 09-06-2023 End: 09-06-2023 ambulatory MARTIR HERBERT II Facility:[facility] Start: 09-06-2023 End: 09-06-2023 Patient encounter procedure Jc Mendiola MD Work Phone: Radiation Oncology Comment on above: Malignant neoplasm o f prostate (HCC) (Primary Dx) Start: 09-06-2023 End: 09-06-2023 ambulatory Abranvalentin OCHOA Facility:CD:[id number] Start: 08-08-2023 ambulatory Abran Phong LADAN Facili ty:[facility] Start: 07-25-2023 Patient encounter procedure [facility] Provider [facility] Department Start: 07-24-2023 Telephone encounter G Chirag Mendiola MD Work Phone: Radiation Oncology Comment on above: Appointment Start: 07-11-2023 Patient encounter procedure Jc Mendiola MD Work Phone: [facility] Start: 07-11-2023 Radiation Oncology Note G Walter Mendiola MD Work Phone: Radiation Oncology Comment on above: Simulation Note Start: 07-11-2023 End: 07-11-2023 ambulatory MARTIR HERBERT II Facility:[facility] Start: 05-29-2023 End: 05-29-2023 ambulatory Martir Herbert Facility:[facility] Start: 05-29-2023 End: 05-29-2023 Admission to same day surgery center MANGO Herbert Work Phone: [facility] Work Phone: Start: 05-29-2023 End: 05-29-2023 ambulatory II Martir Herbert Work Phone: [facility] Work Phone: Start: 05-23-2023 Patient encounter procedure Ccf Provider [facility] Department Start: 05-02-2023 Telephone encounter G Chirag Mendiola MD Work Phone: Radiation Oncology Comment on above: Constipation; Rectal Bleeding; Future Appointment Start: 02-21-2023 Patient encounter procedure Ccf Provider [facility] Department Start: 02-05-2023 End: 02-05-2023 Patient encounter procedure Abran OCHOA [facility] Start: 01-16-2023 End: 01-16-2023 Patient encounter procedure Abran OCHOA [facility] Start: 12-19-2022 End: 12-19-2022 ambulatory II Martir Herbert Work Phone: [facility] Work Phone: Start: 12-19-2022 End: 12-19-2022 Patient encounter procedure II Martir Herbert Work Phone: [facility] [place] Work Phone: Start: 12-04-2022 End: 12-04-2022 Patient encounter procedure Abran OCHOA [facility] Start: 10-17-2022 End: 10-18-[address] ABRAN OCHOA Facility:[facility] Start: 09-22-2022 End: 09-22-2022 Patient encounter procedure Abran OCHOA [facility] Start: 03-04-2022 End: 03-05-[address] MARTIR HERBERT Facility:[facility] Procedures Date Procedure Procedure Detail Performing Clinician Start: 09-25-2024 ALL C REACTIVE PROTEIN Generic External Data Provider Start: 09-25-2024 ALL SED RATE Generic Ex ternal Data Provider Start: 07-14-2024 ALL SED RATE Generic Ex ternal Data Provider Start: 07-01-2024 MHPT PSA, DIAGNOSTIC Ge neric External Data Provider Start: 05-27-2024 ALL SED [...] DTaP,Tdap,Td Vaccine (2 - Td or Tdap) [facility] Start: 04-09-2025 End: 04-09-2025 Patient encounter procedure 04/09/2025 9:00 AM EDT Office Visit Radiation Oncology [address] [place] [address] [place] [address] Jc Mendiola MD [address] [place] [address] [place] [address] Followup Radiation Oncology Comment on above: Followup Start: 11-21-2024 End: 11-21-2024 Patient encounter procedure 11/21/2024 8:30 AM EST Office Visit [facility] [address] [facility] [address] [place] [address] Martir Herbert MD [address] [facility] [address] [place] [address] [facility] Start: 09-29-2024 End: 09-29-2024 Patient encounter procedure 09/29/2024 8:30 AM EST Office Visit [facility] [address] [facility] [address] [place] [address] Martir Herbert MD [address] [facility] [address] [place] [address] [facility] Start: 05-25-2024 Covid-19 Vaccine ( season) Covid-19 Vaccine ( season) [facility] Start: 05-25-2024 Influenza vaccination Influenza Vacc ine (#1) [facility] Start: 12-19-2023 [facility] Start: 12-19-2023 [facility] Start: 11-29-2023 Covid-19 Vaccine ( season) Covid-19 Vaccine ( season) [facility] Start: 09-24-2023 Advance Directive Discussion Advance Directive Discussion [facility] Start: 09-24-2023 Behavioral Health Screening Behavioral Health Screening [facility] Start: 05-29-2023 [facility] Start: 05-25-2023 Covid-19 Vaccine ( season) Covid-19 Vaccine ( season) [facility] Start: 05-25-2023 Influenza vaccination C [facility] Start: 12-11-2022 COVID-19 VACCINE (5 - Pfizer series) COVID-19 VACCINE (5 - Pfizer series) [facility] Start: 09-24-2022 ADVANCE DIRECTIVE DISCUSSION ADVANCE DIRECTIVE DISCUSSION [facility] Start: 09-24-2022 DEPRESSION ASSESSMENT DEPRESSION ASS ESSMENT [facility] Start: 2006 PNEUMOCOCCAL: 65+ (1 - PCV) PNEUMOCOCCAL: 65+ (1 - PCV) [facility] Start: 2001 RSV Vaccine (1 - 1-d ose 60+ series) RSV Vaccine (1 - 1-dose 60+ series) [facility] Start: 11-24-1991 SHINGRIX VACCINE (1 of 2) SHINGRIX VACCINE (1 of 2) [facility] Start: 1986 DIABETES SCREEN DIABETES SCREEN [facility] Start: 1986 Diabetes Screening Diabetes Screenin g [facility] Start: 1960 Urine microalbumin profile DTAP,TDAP,TD (1 - Tdap) [facility] Start: 11-24-1959 Anxiety Screening Anxiety Screening [facility] Start: 11-24-1959 Depression Screening Depression Scre ening [facility] Patient referral [facility] Work Phone: [facility] Immunizations Immunization Date Immunization Notes Care Provider Alvin barker 07-31-2023 COVID-19 (PFIZER) 12Y and older II Martir Herbert Work Phone: [facility] 07-31-2023 influenza virus vacc ine, unspecified formulation Abran OCHOA [facility] 07-31-2023 Influenza, Seasonal, Quadrivalent, Adjuvanted Generic Provider [facility] 08-13-2022 influenza virus vacc ine, unspecified formulation Abran OCHOA [facility] 08-13-2022 Influenza, Seasonal, Quadrivalent, Adjuvanted Generic Provider [facility] 08-13-2022 SARS-CoV-2 (COVID-19 ) [id number] Abran OCHOA [facility] 12-18-2021 zoster vaccine recombinant Abran OCHOA [facility] 09-21-2021 zoster vaccine recombinant Abran OCHOA [facility] 09-19-2021 tetanus toxoid, redu lester diphtheria toxoid, and acellular pertussis vaccine, adsorbed Abran OCHOA [facility] 08-25-2021 influenza virus vacc ine, unspecified formulation Abran OCHOA [facility] 06-25-2021 influenza virus vacc ine, unspecified formulation Abran OCHOA [facility] 06-25-2021 Influenza, Seasonal, Quadrivalent, Adjuvanted Generic Provider [facility] 06-25-2021 SARS-CoV-2 (COVID-19 ) mRNA BNT-162b2 vax Abran OCHOA [facility] Comment on above: Result Comment: 2022: [id number] 11-14-2020 SARS-CoV-2 (COVID-19 ) mRNA BNT-162b2 vax Abran OCHOA [facility] Comment on above: Result Comment: 2022: [id number] 10-24-2020 SARS-CoV-2 (COVID-19 ) mRNA BNT-162b2 vax Abran OCHOA [facility] Comment on above: Result Comment: 2022: [email or web address] 07-03-2020 influenza, high dose seasonal, preservative-free Generic Provider [facility] 06-28-2020 influenza virus vacc ine, unspecified formulation Abran OCHOA [facility] 07-02-2019 influenza virus vacc ine, unspecified formulation Abran OCHOA [facility] 07-02-2019 pneumococcal conjuga te vaccine, 13 valent Abran OCHOA [facility] 07-02-2019 Seasonal trivalent influenza vaccine, adjuvanted, preservative free Generic Provider [facility] 06-29-2018 influenza virus vacc ine, unspecified formulation Abran OCHOA [facility] 06-29-2018 Seasonal trivalent influenza vaccine, adjuvanted, preservative free Generic Provider [facility] 06-21-2017 influenza virus vacc ine, unspecified formulation Abran OCHOA [facility] 08-18-2015 influenza virus vacc ine, unspecified formulation Abran OCHOA [facility] 08-18-2015 influenza, high dose seasonal, preservative-free Generic Provider [facility] 06-23-2014 influenza virus vacc ine, unspecified formulation Abran OCHOA [facility] 06-23-2014 influenza, seasonal, injectable, preservative free Generic Provider [facility] 07-01-2013 influenza virus vacc ine, unspecified formulation Abran OCHOA [facility] 07-01-2013 zoster vaccine, live Abran OCHOA [facility] 10-05-2009 pneumococcal polysaccharide vaccine, 23 valent Generic Provider [facility] Payers Date Payer Category Payer Self-pay 2022 Private Health Insurance [id number] 2006 Medicare [id number] 1959 Medicare [id number] 1959 Private Health Insurance [id number] 1940 Unknown [id number] [id number] 1941 Unknown [id number] 2.16.840.1.117824.3.579.2.593 1940 Unknown [id number] 2.16.840.1.252520.3.579.2.1259 1941 Unknown [id number] 2.16.840.1.466868.3.579.2.1259 1941 Unknown [id number] 2.16.840.1.765302.3.579.2.1259 1941 Unknown [id number] 2.16.840.1.091538.3.579.2.1259 1941 Unknown [id number] 2.16.840.1.718291.3.579.2.727 1941 Unknown [id number] 2.16.840.1.056149.3.579.2.727 1941 Unknown [id number] 2.16.840.1.773304.3.579.2.727 1941 Unknown [id number] 2.16.840.1.308812.3.579.2.727 1941 Unknown [id number] 2.16.840.1.518485.3.579.2.727 1941 Unknown [id number] 2.16.840.1.577453.3.579.2.727 1941 Unknown [id number] 2.16.840.1.687509.3.579.2.727 1941 Unknown [id number] 2.16.840.1.443486.3.579.2.727 Unknown Insurance No Card [id number] Unknown [id number] 2.16.840.1.896003.3.579.2.531 Unknown [id number] 2.16.840.1.334387.3.579.2.531 Social History Date Type Detail Facility Start: 09-01-2020 End: 11-12-2023 Tobacco smoking status Never smoked tobacco (finding) [facility] Tobacco smoking status Never [facility] Start: 02-16-2023 End: 11-14-2023 Sex Assigned At Male [facility] Start: 1940 Sex Assigned At Male [facility] Start: 02-16-2023 End: 11-12-2023 Tobacco use and exposure Smokeless tobacco non-user [facility] Start: 02-16-2023 End: 09-19-2023 Alcohol intake Ex-drinker (finding) [facility] Start: 1940 Sex Assigned At Not on file [facility] Start: 02-16-2023 End: 11-14-2023 History of Social function [facility] Goals Date Patient Goal Desired Activity /State Functional Status Date Assessment Result Facility 07-04-2024 Functional Status N/A [facility] 12-28-2023 Functional Status N/A [facility] 10-08-2023 Functional Status N/A [facility] 02-05-2023 Functional Status N/A [facility] 12-04-2022 Functional Status N/A [facility] Clinical Notes 02-23-2022 to 07-04-2024 Jc Mendiola [...] under a microscope. This is called the [place] score and the total score can range from 6 10, indicating how likely it is that the cancer will spread (metastasize) to other parts of the body. The higher the score, the greater the likelihood that the cancer will spread. [place] 6 or lower: This indicates that the [...] stress of having cancer. General instructions Take hmtw-kpx-vwqnwsf and prescription medicines only as told by your health care provider. If you have to go to the hospital, notify your cancer specialist (oncologist). Keep all follow-up visits. This is important. Where to find more information [place] [employer]: www.cancer.org [place] Society of Clinical Oncology: www.cancer.net National Cancer [place]: www.cancer.gov Contact a health care provider if: [...] provider. Document Revised: 12/07/2021 Document Reviewed: 12/07/2021 [employer] Patient Education 2023 [employer]. Follow Up Care 12/28/2023 08:57:43 With:LADAN EDWARDS, Abran Darling, URL Address: [facility] [address] , [place] [address]- When: Unknown [facility] 07-04-2024 Note Patient Education Oncology Prostate Cancer [...] under a microscope. This is called the [place] score and the total score can range from 6?10, indicating how likely it is that the cancer will spread (metastasize) to other parts of the body. The higher the score, the greater the likelihood that the cancer will spread. ? Alpa 6 or lower: This indicates that the cancer cells look similar to normal prostate cells (well differentiated). ? [place] 7: This indicates that the cancer cells look somewhat similar to normal prostate cells (moderately differentiated). ? [place] 8, 9, or 10: This indicates that [...] the prostate gla (more content not included)... [facility] 04-10-2024 History of Present illness Narrative Radiation [...] Mendiola MD cc: Martir Herbert II, MD [address] [place] [address] Dr. Ochoa documented in this encounter [facility] 04-10-2024 Note HNO ID: [id number] Author: Jc MENDIOLA MD Service: ? Author [...] Mendiola MD cc: Martir Herbert II, MD [address] [place] [address] Dr. Ochoa [facility] 04-10-2024 Nurse Note LAY 4 Nichelle Elkins RN [facility] 04-10-2024 Nurse Note LAY 4 Nichelle Elkins RN documented in this encounter [facility] 12-28-2023 Hospital Discharge instructions Patient Education 12/28/2023 [...] urethra. Follow these instructions at home: Take ltdp-yvw-nsmwvcf and prescription medicines only as told by [...] provider. Document Revised: 03/29/2022 Document Reviewed: 03/29/2022 [employer] Patient Education 2022 [employer]. Follow Up Care 12/04/2022 12:55:53 With:LADAN EDWARDS, Abran Darling, URL Address: [address] [place] [address]- When: Unknown [facility] 10-11-2023 Note HNO ID: [id number] Author: Jc MENDIOLA MD Service: ? Author [...] Mendiola MD cc: Martir Herbert II, MD [address] [place] [address] Dr. Ochoa [facility] 10-08-2023 Hospital Discharge instructions Patient [...] treat constipation, you may need to: Take pzuo-hrg-eyudetm or prescription medicines. Eat foods that are high in fiber, such as beans, whole grains, and fresh fruits and vegetables. Limit foods that are high in fat and processed sugars, such as fried or sweet foods. General instructions Take dgrk-ztn-lpdzexr and prescription medicines only as told by [...] provider. Document Revised: 12/07/2021 Document Reviewed: 12/07/2021 [employer] Patient Education 2022 [employer]. Follow Up Care 06/26/2023 12:00:57 With:LADAN EDWARDS, Abran Darling, URL Address: [facility] [address], [place] [phone] When: Unknown Comments:3 mos w/ PSA [facility] 10-03-2023 Note HNO ID: [id number] Author: Jc MENDIOLA MD Service: ? Author Type: Physician Type: Progress Notes Filed: 10/12/2023 11:35 Note Text: Patient: Jose Can Date:10/03/2023 [facility] Department of Radiation Oncology [facility] RADIATION ONCOLOGY POST SEED IMPLANT SIMULATION NOTE [...] Electronically Signed CHIRAG MENDIOLA M.D. 1:35 AM [facility] 09-19-2023 Note HNO ID: [id number] Author: Jc Mendiola MD Service: ? 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 [facility] 09-06-2023 Note HNO ID: [id number] Author: Jc Mendiola MD Service: ? Author Type: Physician Type: Progress Notes Filed: 09/06/2023 3:18 PM Note Text: Date: 09/06/23 Facility: [facility] Procedure: prostate transperineal brachytherapy implant Diagnosis: [...] seen, results documented. Edilma Mendiola MD [facility] 09-06-2023 History of Present illness Narrative Date: 09/06/23 Facility: [facility] Procedure: prostate transperineal brachytherapy implant Diagnosis: [...] activity seen, results documented. Edilma Mendiola MD [facility] documented in this encounter [facility] 08-25-2023 Note HNO ID: [id number] Author: Jc Mendiola MD Service: ? Author Type: Physician Type: Progress Notes Filed: 09/06/2023 12:36 AM Note Text: JOSE CAN [id number] 08/25/2023 [facility] Department of Radiation Oncology [facility] RADIATION ONCOLOGY BRACHYTHERAPY TREATMENT PLANNING NOTE For [...] Chirag Mendiola M.D. / NATY 33:42 PM [facility] 07-25-2023 Miscellaneous Notes Enriqueta pt's dtr, returned [...] Debra Quinn RN documented in this encounter [facility] 07-12-2023 Note HNO ID: [id number] Author: Jc Mendiola MD Service: ? Author [...] Visit completed when applicable. Jc Mendiola MD [facility] 07-11-2023 History of Present illness Narrative JOSE CAN [id number] 07/11/2023 [facility] Department of Radiation Oncology [facility] RADIATION ONCOLOGY SIMULATION NOTE DATE OF SIMULATION: 07/11/2023 MACHINE: [employer] Focus 500 Diagnosis: 185 (Prostate Gland) AREA:Prostate PATIENT POSITION: Supine CONTRAST: None PROTOCOL: None CONCURRENT THERAPY: None FIXATION DEVICE: UTS Stabilization device by [employer]. PROCEDURE: Patient was simulated in exaggerated dorsal lithotomy position. Serial images of the prostate were acquired using TRUS and reconstructed in 3D space. These images were imported into [employer] Prostate planning system where a plan was generated. ASSESSMENT/PLAN: Patient tolerated simulation procedure well. Electronically Signed Chirag Mendiola M.D. / NATY 35:19 PM documented in this encounter [facility] 07-11-2023 Note HNO ID: [id number] Author: Jc Mendiola MD Service: ? Author Type: Physician Type: Progress Notes Filed: 07/12/2023 12:35 AM Note Text: JOSE CAN [id number] 07/11/2023 [facility] Department of Radiation Oncology [facility] RADIATION ONCOLOGY SIMULATION NOTE DATE OF SIMULATION: 07/11/2023 MACHINE: [employer] Focus 500 Diagnosis: 185 (Prostate Gland) AREA:Prostate PATIENT POSITION: Supine CONTRAST: None PROTOCOL: None CONCURRENT THERAPY: None FIXATION DEVICE: UTS Stabilization device by [employer]. PROCEDURE: Patient was simulated in exaggerated dorsal lithotomy position. Serial images of the prostate were acquired using TRUS and reconstructed in 3D space. These images were imported into [employer] Prostate planning system where a plan was generated. ASSESSMENT/PLAN: Patient tolerated simulation procedure well. Electronically Signed Chirag Mendiola M.D. / NATY 35:19 PM [facility] 05-29-2023 Procedure note [facility] 05-03-2023 Miscellaneous Notes Patients daughter called back [...] colonoscopy was done per Dr Franco at [facility] in 2016. It was normal. Dr Mendiola-- please advise. Nichelle Elkins RN documented in this encounter [facility] 02-05-2023 Hospital Discharge instructions Patient Education 02/05/2023 [...] stress of having cancer. General instructions Take mnqn-ypq-pruuunj and prescription medicines only as told by your health care provider. If you have to go to the hospital, notify your cancer specialist (oncologist). Keep all follow-up visits. This is important. Where to find more information [place] [employer]: www.cancer.org [place] Society of Clinical Oncology: www.cancer.net National Cancer [place]: www.cancer.gov Contact a health care provider if: [...] provider. Document Revised: 12/07/2021 Document Reviewed: 12/07/2021 [employer] Patient Education 2022 [employer]. Follow Up Care 01/04/2023 12:26:51 With:LADAN EDWARDS, Abran Darling, URL Address: [facility] [address] , [place] [address]- [phone] When:Within 6 Month(s) Comments:Will refer to Dr. Mendiola [facility] 01-16-2023 Hospital Discharge instructions Patient Education [...] for your post-operative appointment in 1-2 weeks [phone] or [phone] Follow Up Care 01/04/2023 11:45:40 With:Abran OCHOA Address: [facility] [address] [place] [address]- [facility] (1) When: Unknown Comments:Keep scheduled appointment [facility] 12-04-2022 Hospital Discharge instructions Patient Education [...] urethra. Follow these instructions at home: Take gted-pkn-pbtehwa and prescription medicines only as told by [...] 09/10/2006 Document Revised: 08/05/2019 Document Reviewed: 10/15/2017 [employer] Patient Education [employer]. Follow Up Care 09/22/2022 08:10:59 With:Abran OCHOA MD, URL Address: [facility] [address] [place] [address] Dr, [place] [address]- When: Unknown [facility] 02-23-2022 Hospital Discharge instructions Follow Up Care 02/23/2022 13:31:33 With:Abran OCHOA MD, URL Address: [address] [place] [address]- When: Unknown [facility] Evaluation + Plan note Future Appointments Appointment Date:12/04/2022 12:15:00 PM Scheduled Provider:Abran OCHOA MD Location:[facility] Appointment Type:URO Office Visit [facility] Evaluation + Plan note Future Appointments Appointment Date:12/07/2023 08:00:00 AM Scheduled Provider:Abran OCHOA MD Location:[facility] Appointment Type:URO Office Visit [facility] Evaluation + Plan note Future Appointments Appointment Date:02/05/2023 08:30:00 AM Scheduled Provider:Abran OCHOA MD Location:[facility] Appointment Type:URO Office Visit Appointment Date:12/07/2023 08:00:00 AM Scheduled Provider:Abran OCHOA MD [facility] Type:URO Office Visit Diagnostic Tests PendingProstate Histology ([facility]) 01/16/23 [facility] Evaluation + Plan note Future Appointments Appointment Date:12/07/2023 08:00:00 AM Scheduled Provider:Abran OCHOA MD [facility] App[facility] Type:URO Office Visit Diagnostic Tests PendingPSA Total 02/05/23 [facility] Evaluation + Plan note Future Appointments Appointment Date:10/08/2023 09:30:00 AM Scheduled Provider:Abran OCHOA MD Location:[facility] Appointment Type:URO Office Visit Appointment Date:12/07/2023 08:00:00 AM Scheduled Provider:Abran OCHOA MD [facility] App[facility] Type:URO Office Visit [facility] Evaluation + Plan note Future Appointments Appointment Date:12/28/2023 08:00:00 AM Scheduled Provider:Abran OCHOA MD Location:[facility] Appointment Type:URO Office Visit Diagnostic Tests PendingPSA Total 10/08/23 [facility] Evaluation + Plan note Future Appointments Appointment Date:07/04/2024 09:15:00 AM Scheduled Provider:Abran OCHOA MD [facility] App[facility] Type:URO Office Visit Diagnostic Tests PendingPSA Total 04/24/24 [facility] Evaluation + Plan note Future Appointments Appointment Date:07/06/2025 08:45:00 AM Scheduled Provider:Abran OCHOA MD [facility] App[facility] Type:URO Office Visit [facility] Evaluation note No assessment inform ation available [facility] Work Phone: Evaluation note Diagnosis Rectal bleeding- Primary Hemorrhage of rectum and anus Constipation, unspecified constipation type Prostate cancer (HCC) Malignant neoplasm of prostate [facility] Malignant neoplasm of prostate (HCC)- Primary Malignant neoplasm of prostate [facility] Diagnosis Onset Date Resolution Status Temporal arteritis acute [facility] Work Phone: Evaluation note* Diagnosis Malignant neoplasm of prostate (HCC)- Primary Malignant neoplasm of prostate [facility] Author Juan Jiang [facility] May 29, 2023 8:21am Note Date/Time May 29, 2023 8:21am [facility] [address] [place] [address] Gastroenterology H&P Signed Patient: Jose Can MR#: [id number] : 1940 Acct:[id number] Age/Sex: 82 / M Adm Date: 3 Loc: Room: Type: [facility] Attending Dr: Juan Jiang MD Copies [...] <Electronically signed by Juan Jiang MD> 05/29/23820 [facility] Work Phone: Hospital course Narrative No data available for this section [facility] Hospital Discharge instructions Additional Instructions DISCHARGE [...] years. -Follow up with PCP. -Office number [phone]. [facility] Work Phone: Hospital Discharge instructions No data available for this section [facility] progress note No data available for this section [facility] reason for referral (narrative) , Refer to Dr. Mendiola for [employer] Referred by: Abran OCHOA MD [facility] Summary Purpose Family History Relationship Condition Age [...] section and content) DATE CREATED AUTHOR 09/22/2021 [facility] dical Specialist DATE CREATED AUTHOR AUTHOR'S ORGANIZ ATION 10/18/2022 [facility] pital DATE CREATED AUTHOR AUTHOR'S ORGANIZ ATION 02/09/2024 [facility] DATE CREATED AUTHOR AUTHOR'S ORGANIZ ATION 03/27/2024 [facility] dical Specialists EPIC DATE CREATED AUTHOR AUTHOR'S ORGANIZ ATION 04/16/2024 [facility] DATE CREATED AUTHOR AUTHOR'S ORGANIZ ATION 07/06/2024 [facility] Patient Care team informatio n (unrecognized section and content) Team Status: Active Member Role Status Dates Martir Herbert II MD Primary Care Provider Active Team Status: Inactive Member Role Status Dates Martir Herbert II MD Primary Care Provider Active Abran Ochoa MD Attending Provider Active Cardroom Drawing Runner Relationship Specialty Start Date End Date Martir Herbert II [address] [place] [address] PCP - General Internal Medicine 02/06/23 [employer] Drawing Runner Relationship Specialty Start Date End Date Martir Herbert II, MD [address] [place] [address] PCP - General Internal Medicine 02/06/23 Team Status: Inactive Member Role Status Dates Martir Herbert II MD Primary Care Provider Active Juan Jiang MD Attending Provider Active Cardroom Drawing Runner Relationship Specialty Start Date End Date Martir Herbert II, MD [address] [place] [address] PCP - General Internal Medicine 02/06/23 Cardroom Drawing Runner Relationship Specialty Start Date End Date Martir Herbert II, MD [address] [place] [address] PCP - General Internal Medicine 02/06/23 Cardroom Drawing Runner Relationship Specialty Start Date End Date Martir Herbert II, MD [address] [place] [address] PCP - General Internal Medicine 02/06/23 Cardroom Drawing Runner Relationship Specialty Start Date End Date Martir Herbert II, MD [address] [place] [address] PCP - General Internal Medicine 02/06/23 Team [...] Other Provider Active Start: December 19, 2023 [employer]room Drawing Runner Relationship Specialty Start Date End Date Martir Herbert II, MD [address] [place] [address] PCP - General Internal Medicine 02/06/23 [employer]room Drawing Runner Relationship Specialty Start Date End Date Martir Herbert MD [address] [place] [address] PCP - ACO Reach 02/15/23 Martir Herbert MD [address] [place] [address] PCP - General Internal Medicine 01/30/23 [employer]room Drawing Runner Relationship Specialty Start Date End Date Martir Herbert MD [address] [place] [address] PCP - ACO Reach 02/15/23 Martir Herbert MD [address] [place] [address] PCP - General Internal Medicine 01/30/23 Cardroom Drawing Runner Relationship Specialty Start Date End Date Martir Herbert MD [address] [place] [address] PCP - ACO Reach 02/15/23 Martir Herbetr MD [address] [place] [address] PCP - General Internal Medicine 01/30/23 Goals [...] or prosecute any alcohol or drug abuse patient.[facility] CenterIn the event this information is protected by the Federal Confidentiality of Alcohol and Drug Abuse Patient Records regulations: The Federal rules restrict any use of the information to criminally investigate or prosecute any alcohol or drug abuse patient.[facility] CenterIn the event this information is protected by the Federal Confidentiality of Alcohol and Drug Abuse Patient Records regulations: The Federal rules restrict any use of the information to criminally investigate or prosecute any alcohol or drug abuse patient.[facility] CenterIn the event this information is protected by the Federal Confidentiality of Alcohol and Drug Abuse Patient Records regulations: The Federal rules restrict any use of the information to criminally investigate or prosecute any alcohol or drug abuse patient.[facility] CenterIn the event this information is protected by the Federal Confidentiality of Alcohol and Drug Abuse Patient Records regulations: The Federal rules restrict any use of the information to criminally investigate or prosecute any alcohol or drug abuse patient.[facility] CenterIn the event this information is protected by the Federal Confidentiality of Alcohol and Drug Abuse Patient Records regulations: The Federal rules restrict any use of the information to criminally investigate or prosecute any alcohol or drug abuse patient.[facility] CenterIn the event this information is protected by the Federal Confidentiality of Alcohol and Drug Abuse Patient Records regulations: The Federal rules restrict any use of the information to criminally investigate or prosecute any alcohol or drug abuse patient.[facility] CenterIn the event this information is protected by the Federal Confidentiality of Alcohol and Drug Abuse Patient Records regulations: The Federal rules restrict any use of the information to criminally investigate or prosecute any alcohol or drug abuse patient.[facility] CenterIn the event this information is protected by the Federal Confidentiality of Alcohol and Drug Abuse Patient Records regulations: The Federal rules restrict any use of the information to criminally investigate or prosecute any alcohol or drug abuse patient.[facility] Reason for Visit (unrecogniz ed [...] BE BASED ON THE PRIMARY CLINICAL RECORDS. [facility] [employer] [facility]. provides no warranty or guarantee of the accuracy or completeness of information in this document.
[2024-11-14 07:20] LABS: Erythrocyte Sedimentation Rate 26 mm/hr (<=20)
[2024-11-14 07:55] LABS: C Reactive Protein <0.50 mg/dL (<=0.50)
== END 2024-11-14 06:39 | disposition home or self-care (01) ==
LOC: LAB 06:38
PROVIDERS: PCP Internal Medicine; Visit Provider Internal Medicine Rheumatology
DX: M31.6 Other giant cell arteritis (principal); M19.90 Unspecified osteoarthritis, unspecified site; Z51.81 Encounter for therapeutic drug level monitoring
CPT/HCPCS: 36415; 85652; 86140

== ENCOUNTER 2024-11-14 06:39 | Outpatient (OUT) | payer MEDICARE, OTHER, SELFPAY ==
--- OUTSIDE RECORDS SUMMARY | 2024-11-14 06:42 | XMS_ITS | CCD ---
Author Organization [facility] Care Team Providers Care Partition Setter Name Role Phone MARTIR HERBERT Primary Care [...] Care Provider MD Armani Kelly Attending Provider [phone] Martir Herbert Primary Care Unavailable Juan Jiang [...] Unavailable MARTIR HERBERT II Primary Care Unavailable cJ MENDIOLA Attending Unavailable MARTIR HERBERT II Primary [...] R Attending Unavailable Martir Herbert MD Unavailable [phone] Martir Herbert MD Primary Care Provider Allergies Allergy Classification Reported Allergen(s) Allergy Type Date of Onset Reaction(s) Facility (10 sources) Penicillin; Translations: [penicillin] Drug Allergy Unknown (qualifier value) [facility] (10 sources) Sulfonamides; Translations: [sulfonamides] Drug allergy Unknown (qualifier value) [facility] (5 sources) Penicillins; Translations: [PENICILLINS] Drug allergy (disorder) 3 Hives [facility] Repository (1 source) Sulfonamides (Antibiotic) Drug allergy (disorder) 3 [facility] (9 sources) Penicillins Drug Allergy 3 [facility] (16 sources) Sulfonamides (Antibiotic); Translations: [SULFA (SULFONAMIDE ANTIBIOTICS)] Drug Allergy 3 [facility] (1 source) Penicillins Drug allergy (disorder) 4 [facility] Repository (1 source) Sulfonamides (Antibiotic) Drug allergy (disorder) 4 [facility] Repository (4 sources) Penicillins Drug Allergy 3 Hives, Rash, Unknown [facility] Medications Current Medications Medication Drug Class(es) Dates Sig (Normalized) Sig (Original) acetaminophen 325 mg / HYDROcodone bitartrate 7.5 mg oral tablet (1 source) Opioid Agonist Start: 01-04-2023 take 1 tablet by mouth once, then take 1 tablet by mouth every hour [place] 325 mg-7.5 mg oral tablet 1 tab(s), Oral, Once, 1 tab(s), Refill(s) 0, Take 1 hour prior to procedure, [facility]/pharmacy #[id number], 175, cm, 03/13/23 12:29:00 EDT, Height/Length Dosing, [...] ethyl esters (intermediate) 1000 mg oral capsule (16 sources) Start: 09-22-2024 take 1 capsule by mouth in the morning omega-3 acid ethyl esters (Lovaza) 1 g capsule Indications: Mixed hyperlipidemia (CMS/HCC) TAKE 1 CAPSULE BY MOUTH IN THE MORNING AND 1 CAPSULE BY MOUTH BEFORE BEDTIME 180 capsule 3 09/22/2024 Active Start: 01-05-2023 take 1 capsule by mo [facility] in the morning omega-3 acid ethyl [...] discomfort, # 30 tab(s), Refills(s) 11, Pharmacy: [facility]/pharmacy #[id number], 175, cm, 12/28/23 8:09:00 EDT, [...] Start Date: 10/28/19 Status: Ordered Vit D3-Vit K2-[place] [facility] Ext (3 sources) Start: 05-29-2023 take 1 capsule by mouth once daily Vit D3-Vit K2-[place] [facility] Ext Active 25 CAP PO Daily May 29, 2023 12:00am Vitamins A,C,H-Arwh-Egmrlb (Preservision Areds) 4,296 mcg-226 mg-90 mg capsule (2 sources) Start: 12-18-2023 take 1 capsule by mouth twice daily Vitamins A,C,K-Irtn-Quazyz (Preservision Areds) 4,296 mcg-226 mg-90 mg capsule [...] ALL C REACTIVE PROTEINon CRP [Mass/Vol] mg/L [facility] - 0.50 mg/dL [facility] ALL SED RATEon 09-25-2024 [facility] SED RATE 7 [facility]14[facility]2024 Interpretation and review of laboratory results Abnormal [facility] SED RATE 35 [facility] Urology Office/Clinic Noteon 07-04-2024 Urology Office/Clinic Note [...] [address], [place] [address]- Additional Instructions: 1 yr with PSA from [...] virus vaccine, inactivated 08/13/2022 Recorded SARS-CoV-2 (COVID-19) [id number] 08/13/2022 Recorded zoster vaccine, inactivated 12/18/2021 Recorded zoster vaccine, inactivated 09/21/2021 Recorded diphtheria/pertussis, acel/tetanus adult 09/19/2021 Recorded influenza (more content not included)... Normal [facility] Comment on above: Result Comment: Elec tronically Signed By: Abran OCHOA MD\.br\Date and Time Signed: 07/04/24 10:24 EDT\.br\Electronically Co-Signed By: Debi Vidal\.br\Date and Time Co-Signed: 07/04/24 10:22 EDT MHPT PSA, DIAGNOSTICon 07-01 PROSTATE SPECIFIC ANTIGEN DX 0.30 ng/mL NINF - 4.00 ng/mL [facility] ALL SED RATEon 05-27-2024 TBH SED RATE 9 NINF [facility] CNOVon 04-10-2024 CNOV Office Visit (RADTSA ) JOSE CAN ([id number]) 1940 M Date Time Provider Department 04/10/24 [...] DIAGNOSIS: Prostate adenocarcinoma, initial PSA 3.1, biopsy Hamer score 3 + 4 = 7 (grade [...] ASSESSMENT/PLAN: Prostate adenocarcinoma, initial PSA 3.1, biopsy Hamer score 3 + 4 = 7 (grade [...] Mendiola MD cc: Martir Herbert II, MD [address] [place] [address] Dr. Ochoa Allergies As of Date: 04/10/2024 Noted Allergy Reaction PENICILLINS 02/16/2023 2 - Rash SULFA (SULFONAMIDE ANTIBIOTICS) 02/16/2023 2 - Rash Date Reviewed: 04/10/2024 Reviewed by: Nichelle Elkins RN - Fully Assessed Primary Visit Diagnosis:Malignant neoplasm of prostate (HCC) [C61] Order(s):PSA (OUTSIDE) [1835958] Order #: [id number] Prescriptions as of 04/14/2024 - predniSONE (DELTASONE) [...] 10/11/2023 Visit Notes: >> Nichelle Elkins RN [facility] Apr 10, 2024 9:32 AM Status: Signed AUA 4 Nichelle Elkins RN Disposition: Return in about 1 year (around 04/10/2025). Follow-up and Disposition History for Encounter Date Provider Department Center 04/10/2024 [id number] [facility] Encounter Status:Closed by Jc MENDIOLA on 04/14/24 Normal [facility] Patient Educationon 12-28-19 Patient Education Urology Benign [...] Follow these instructions at home: ? Take mstg-oqf-srntfgi and prescription medicines only as told by [...] the medicine (more content not included)... Normal [facility] Urology Office/Clinic Noteon 12-28-2023 Urology Office/Clinic [...] (7 mm x 4mm) TRUS/bx 01/16/23 - Hamer 7 (3+4) GG2. cT2a, N0, M0, stage [...] IO s/p brachytherapy. Pt then presented to [facility] ER due to inability to urinate after catheter removal. Bladder scan was >500mL. Dc'd home with Mendoza catheter in place. Came to our office 09/21/23 for catheter removal per approval of PRW. No issues with urination after Mendoza was removed. See #2. Follow-up With When Contact Information LADAN EDWARDS, Abran Darling, URL [address] [place] [address]- Additional Instructions: 6 mos w/ PSA Patient [...] Medications Co (more content not included)... Normal [facility] Comment on above: Result Comment: Elec tronically Signed By: Abran OCHOA MD\.br\Date and Time Signed: 12/28/23 08:53 EDT\.br\Electronically Co-Signed By: Agata Durant\.br\Date and Time Co-Signed: 12/28/23 08:52 EDT Lab Reportson 12-24-2023 Lab Reports [id number] Normal [facility] PSA (OUTSIDE)on 12-24-2023 [facility] Anisocytosis LM Ql (Bld)Orde red By: Arden Marin on 12-19-2023 Anisocytosis Ql (Bld) Slight [facility] Basic Metabolic Panelon 11-23 Anion gap [Moles/Vol] 9.1 mmol/L Normal 6.0-15.0 [facility] Comment on above: Performed By: #### S CAN CBC, BMP #### [facility] [address] Calcium [Mass/Vol] 8.5 mg/dL Low 8.6-10.3 [facility] Comment on above: Performed By: #### S CAN CBC, BMP #### [facility] [address] [place] [address] [place] Chloride [Moles/Vol] 103 mmol/L Normal 98-107 [facility] Comment on above: Performed By: #### S CAN CBC, BMP #### [facility] [address] [place] [address] [place] CO2 [Moles/Vol] 26.0 mmol/L Normal 21.0-31.0 [facility] Comment on above: Performed By: #### S CAN CBC, BMP #### [facility] [address] [place] [address] [place] Creatinine [Mass/Vol] 0.74 mg/dL Normal 0.70-1.30 [facility] Comment on above: Performed By: #### S CAN CBC, BMP #### [facility] [address] [place] [address] [place] Creatinine Clr Calc Pharmacy 78.34 Normal [facility] Comment on above: Result Comment: PERF ORMED BY: [place] [address] PATHOLOGIST PARAFFINER CAREN DALEY M.D. Performed By: #### S CAN CBC, BMP #### [place] [address] [place] GFR/1.73 sq M.predicted MDRD (S/P/Bld) [Vol rate/Area] mL/min/{1.73_m2} Normal [facility] Comment on above: Performed By: #### S CAN CBC, BMP #### [facility] [address] [place] [address] [place] Glucose [Mass/Vol] 88 mg/dL Normal 70-100 [facility] Comment on above: Result Comment: Petty Glucose Reference Range is dependent on time and content of last meal. Glucose of more than 200 mg/dL in a nonstressed, ambulatory subject supports the diagnosis of Diabetes Mellitus. ADA recommended reference range Performed By: #### S CAN CBC, BMP #### [facility] [address] Potassium [Moles/Vol] 4.1 mmol/L Normal 3.5-5.1 [facility] Comment on above: Performed By: #### S CAN CBC, BMP #### [facility] [address] Sodium [Moles/Vol] 134 mmol/L Low 136-145 [facility] Comment on above: Performed By: #### S CAN CBC, BMP #### [facility] [address] Urea nitrogen [Mass/Vol] 23 mg/dL Normal 7-25 [facility] Comment on above: Performed By: #### S CAN CBC, BMP #### [facility] [address] Basophils Auto (Bld) [#/Vol] Ordered By: Arden Marin on 12-19-2023 Basophils (Bld) [#/Vol] 0.1 10*3/uL 0.0-0.2 [facility] Basophils/100 WBC Auto (Bld) Ordered By: Arden Marin on 12-19-2023 Basophils/100 WBC (Bld) 0.4 % . [facility] Calcium [Mass/volume] in Ser um or PlasmaOrdered By: Arden Marin on 12-19-2023 Calcium [Mass/Vol] 8.5 mg/dL 8.6-10.3 [facility] Carbon dioxide, total [Moles /volume] in Serum or PlasmaOrdered By: Arden Marin on 12-19-2023 CO2 [Moles/Vol] 26.0 mmol/L 21.0-31.0 [facility] Chloride [Moles/volume] in S jerry or PlasmaOrdered By: Arden Marin on 12-19-2023 Chloride [Moles/Vol] 103 mmol/L 98-107 [facility] Creatinine [Mass/volume] in Serum or PlasmaOrdered By: Arden Marin on 12-19-2023 Creatinine [Mass/Vol] 0.74 mg/dL 0.70-1.30 [facility] ECG 12 lead ECGon 12-19-2023 ECG 12 lead ECG [facility] [place] [address] [place], [place] [id number] Electrocardiograph Report Signed Patient: Jose Can MR#: [id number] : 1940 Acct:[id number] Age/Sex: 83 / M ADM Date: 12/19/23 Loc: [place] Room: Type: [facility] Attending Dr: Armani Kelly MD Ordering [...] previous ECGs available Confirmed by CAROLA EDWARDS [facility] ([id number] on 12/19/2023 6:51:43 AM Referred By: Electronically Signed By:ABRAN SRIVASTAVA MD [facility] Transcribed By: MUS Signed By Pal Srivastava MD 12/19/23 0651 Normal [facility] Eosinophils Auto (Bld) [#/Vo l]Ordered By: Arden Marin on 12-19-2023 Eosinophils (Bld) [#/Vol] 0.1 10*3/uL 0.0-0.45 [facility] Eosinophils/100 WBC Auto (Bl d)Ordered By: Arden Marin on 12-19-2023 Eosinophils/100 WBC (Bld) 0.3 % . [facility] Erythrocyte distribution wid th Auto (RBC) [Ratio]Ordered By: Arden Marin on 12-19-2023 Erythrocyte distribution width (RBC) [Ratio] 13.9 % 12.0-14.8 [facility] Glucose [Mass/volume] in Ser um or PlasmaOrdered By: Arden Marin on 12-19-2023 Glucose [Mass/Vol] 88 mg/dL 70-100 [facility] Comment on above: ADA recommended refe rence rangeRandom Glucose Reference Range is dependent on time and content of last meal. Glucose of more than 200 mg/dL in a nonstressed, ambulatory subject supports the diagnosis of Diabetes Mellitus. Hematocrit Auto (Bld) [Volum e fraction]Ordered By: Arden Marin on 12-19-2023 Hematocrit (Bld) [Volume fraction] 40.8 % 38.8-50.0 [facility] Hemoglobin [Mass/volume] in BloodOrdered By: Arden Marin on 12-19-2023 Hemoglobin (Bld) [Mass/Vol] 13.4 g/dL 13.0-17.0 [facility] Isaías 12-19-2023 L Specimen: [id number] Received: 12/19/23 Status: RANDI Req Num: [id number] Spec Type: Surgical Subm Dr: Armani Kelly MD Tissues: A Artery Temporal- Biopsy (RT TEMPORAL ARTERY BX) Procedures: Trichrome/2, CD45/2, HE/20, Gross/Micro L4, CD20/2, CD3/2, CD68/2 Age/ Patient Sex Location Account Attending Physician Jose Can/M [place] [id number] Armani Kelly MD SPEC NUM: [id number] RECD: 12/19/23 STATUS: RANDI BEULAH NUM: [id number] FAIZAN: 12/19/[address]: Armani Kelly MD ENTERED: 12/19/[address] [facility] [address]: SPEC TYPE: Surgical DEPT: [...] Clinical Information Right temporal arteritis -------- Specimen: [id number] Received: 12/19/23 Status: RANDI Beulah Num: [id number] Spec Type: Surgical Subm Dr: Armani Kelly MD Tissues: A Artery Temporal- Biopsy (RT TEMPORAL ARTERY BX) Procedures: Trichrome/2, CD45/2, HE/20, Gross/Micro L4, CD20/2, CD3/2, CD68/2 -------- Patient: Jose Can [id number] (Continued) -------- Specimen: [id number] Received: 12/19/23 (Continued) Signed (signature on file) Mee Bush MD 12/21/231838 -------- Specimen: [id number] Received: 12/19/23 Status: RANDI Capellan Num: [id number] Spec Type: Surgical Subm Dr: Armani Kelly MD Tissues: A Artery Temporal- Biopsy (RT TEMPORAL ARTERY BX) Procedures: Trichrome/2, CD45/2, HE/20, Gross/Micro L4, CD20/2, CD3/2, CD68/2 -------- Patient: Jose Can [id number] (Continued) -------- Specimen: [id number] Received: 12/19/23 (Continued) Gross Description Received fresh labeled with the patient's name, date of and temporal artery biopsy right is a 7.8 x 0.3 cm cabrera-pink tubular tissue with attached silver metal clips. Sectioning reveals a patent lumen. Entirely submitted in two cassettes labeled A1-A2. CPT Codes 07862 77503, [id number] -------- -------- Specimen: [id number] Received: 12/19/23 Status: RANDI Capellan Num: [id number] Spec Type: Surgical Subm Dr: Armani Kelly MD Tissues: A Artery Temporal- Biopsy (RT TEMPORAL ARTERY BX) Procedures: Trichrome/2, CD45/2, HE/20, Gross/Micro L4, CD20/2, CD3/2, CD68/2 -------- Patient: Jose Can [id number] (Continued) -------- Signed (signature on file) Mee Bush MD 12/21/23 1839 Normal [facility] Leukocytes [#/volume] correc claudia for nucleated erythrocytes in Blood by Automated counOrdered By: Arden Marin on 12-19-2023 WBC corrected for nucl RBC Auto (Bld) [#/Vol] 16.2 10*3/uL 4.1-10.5 [facility] Lymphocytes Auto (Bld) [#/Vo l]Ordered By: Arden Marin on 12-19-2023 Lymphocytes (Bld) [#/Vol] 2.9 10*3/uL 1.00-4.8 [facility] Lymphocytes/100 WBC Auto (Bl d)Ordered By: Arden Marin on 12-19-2023 Lymphocytes/100 WBC (Bld) 17.7 % . [facility] MCH Auto (RBC) [Entitic mass ]Ordered By: Arden Marin on 12-19-2023 MCH (RBC) [Entitic mass] 28.9 pg 27.5-35.2 [facility] MCHC Auto (RBC) [Mass/Vol]Or dered By: Arden Marin on 12-19-2023 MCHC (RBC) [Mass/Vol] 32.8 g/dL 32.5-35.6 [facility] MCV Auto (RBC) [Entitic vol] Ordered By: Arden Marin on 12-19-2023 MCV (RBC) [Entitic vol] 88.0 fL 83.5-101 [facility] Microcytes LM Ql (Bld)Ordere d By: Arden Marin on 12-19-2023 Microcytes Ql (Bld) Slight [facility] Monocytes Auto (Bld) [#/Vol] Ordered By: Arden Marin on 12-19-2023 Monocytes (Bld) [#/Vol] 1.3 10*3/uL 0.0-0.8 [facility] Monocytes/100 WBC Auto (Bld) Ordered By: Arden Marin on 12-19-2023 Monocytes/100 WBC (Bld) 8.3 % . [facility] Neutrophils Auto (Bld) [#/Vo l]Ordered By: Arden Marin on 12-19-2023 Neutrophils (Bld) [#/Vol] 11.9 10*3/uL 1.8-7.7 [facility] Neutrophils/100 WBC Auto (Bl d)Ordered By: Arden Marin on 12-19-2023 Neutrophils/100 WBC (Bld) 73.3 % . [facility] No Panel InformationOrdered By: Arden Marin on 12-19-2023 Estimated GFR (CKD-EPI) > 60.0 mL/Min [facility] Creatinine Clearance (Chem 78.34 [facility] Nucleated erythrocytes [Pres ence] in Blood by Automated countOrdered By: Arden Marin on 12-19-2023 Nucleated RBC Auto Ql (Bld) 0.1 /100{WBC} 0-0.5 [facility] Ovalocyte detectionOrdered B y: Arden Marin on 12-19-2023 Ovalocytes LM Ql (Bld) Slight [facility] Platelet adequacy [Presence] in Blood by Light microscopyOrdered By: Arden Marin on 12-19-2023 Platelets LM Ql (Bld) Normal Normal [facility] Platelet mean volume Auto (B ld) [Entitic vol]Ordered By: Arden Marin on 12-19-2023 Platelet mean volume (Bld) [Entitic vol] 7.4 fL 6.6-10.1 [facility] Platelet morphology finding [Identifier] in BloodOrdered By: Arden Marin on 12-19-2023 Platelet morphology finding Nom (Bld) Normal Normal [facility] Platelets Auto (Bld) [#/Vol] Ordered By: Arden Marin on 12-19-2023 Platelets (Bld) [#/Vol] 364 10*3/uL 150-450 [facility] Platelets Large [Presence] i n Blood by Light microscopyOrdered By: Arden Marin on 12-19-2023 Platelets Large LM Ql (Bld) Slight [facility] Poikilocytosis [Presence] in Blood by Light microscopyOrdered By: Arden Marin on 12-19-2023 Poikilocytosis LM Ql (Bld) Slight [facility] Potassium [Moles/volume] in Serum or PlasmaOrdered By: Arden Marin on 12-19-2023 Potassium [Moles/Vol] 4.1 mmol/L 3.5-5.1 [facility] RBC Auto (Bld) [#/Vol]Ordere d By: Arden Marin on 12-19-2023 RBC (Bld) [#/Vol] 4.64 10*6/uL 3.90-5.60 [facility] RBC morphologyOrdered By: Kylah Marin on 12-19-2023 RBC morphology finding Nom (Bld) N/A [facility] Scan and CBCon 12-19-2023 Anisocytosis Ql (Bld) Slight Normal [facility] Comment on above: Performed By: #### S CAN CBC, BMP #### [facility] [address] Basophils (Bld) [#/Vol] 0.1 10*3/uL Normal 0.0-0.2 [facility] Comment on above: Performed By: #### S CAN CBC, BMP #### [facility] [address] Basophils/100 WBC (Bld) 0.4 % Normal . [facility] Comment on above: Performed By: #### S CAN CBC, BMP #### [facility] [address] [place] [address] [place] Eosinophils (Bld) [#/Vol] 0.1 10*3/uL Normal 0.0-0.45 [facility] Comment on above: Performed By: #### S CAN CBC, BMP #### [facility] [address] [place] [address] [place] Eosinophils/100 WBC (Bld) 0.3 % Normal . [facility] Comment on above: Performed By: #### S CAN CBC, BMP #### [facility] [address] Erythrocyte distribution width (RBC) [Ratio] 13.9 % Normal 12.0-14.8 [facility] Comment on above: Performed By: #### S CAN CBC, BMP #### [facility] [address] [place] [address] Hematocrit (Bld) [Volume fraction] 40.8 % Normal 38.8-50.0 [facility] Comment on above: Performed By: #### S CAN CBC, BMP #### [address] Hemoglobin (Bld) [Mass/Vol] 13.4 g/dL Normal 13.0-17.0 [facility] Comment on above: Performed By: #### S CAN CBC, BMP #### [address] Large Platelets Slight Normal [facility] Comment on above: Result Comment: PERF ORMED BY: [place] [address] PATHOLOGIST PARAFFINER CAREN ADLEY M.D. Performed By: #### S CAN CBC, BMP #### [address] Lymphocytes (Bld) [#/Vol] 2.9 10*3/uL Normal 1.00-4.8 [facility] Comment on above: Performed By: #### S CAN CBC, BMP #### [address] Lymphocytes/100 WBC (Bld) 17.7 % Normal . [facility] Comment on above: Performed By: #### S CAN CBC, BMP #### [address] MCH (RBC) [Entitic mass] 28.9 pg Normal 27.5-35.2 [facility] Comment on above: Performed By: #### S CAN CBC, BMP #### [place] [address] [place] MCV (RBC) [Entitic vol] 88.0 fL Normal 83.5-101 [facility] Comment on above: Performed By: #### S CAN CBC, BMP #### [address] Mean Corpuscular HGB Conc 32.8 g/dL Normal 32.5-35.6 [facility] Comment on above: Performed By: #### S CAN CBC, BMP #### [address] Microcytosis Slight Normal [facility] Comment on above: Performed By: #### S CAN CBC, BMP #### [address] Monocytes (Bld) [#/Vol] 1.3 10*3/uL High 0.0-0.8 [facility] Comment on above: Performed By: #### S CAN CBC, BMP #### [address] Monocytes/100 WBC (Bld) 8.3 % Normal . [facility] Comment on above: Performed By: #### S CAN CBC, BMP #### [address] Neutrophils (Bld) [#/Vol] 11.9 10*3/uL High 1.8-7.7 [facility] Comment on above: Performed By: #### S CAN CBC, BMP #### [address] Neutrophils/100 WBC (Bld) 73.3 % Normal . [facility] Comment on above: Performed By: #### S CAN CBC, BMP #### [address] NRBC% 0.1 /100{WBC} Normal 0-0.5 [facility] Comment on above: Performed By: #### S CAN CBC, BMP #### [address] Ovalocytes Slight Normal [facility] Comment on above: Performed By: #### S CAN CBC, BMP #### [address] Platelet Estimate Normal Normal Normal [facility] Comment on above: Performed By: #### S CAN CBC, BMP #### [address] Platelet mean volume (Bld) [Entitic vol] 7.4 fL Normal 6.6-10.1 [facility] Comment on above: Performed By: #### S CAN CBC, BMP #### [facility] [address] Platelet Morphology Normal Normal Normal [facility] Comment on above: Performed By: #### S CAN CBC, BMP #### [facility] [address] [place] [address] [place] Platelets (Bld) [#/Vol] 364 10*3/uL Normal 150-450 [facility] Comment on above: Performed By: #### S CAN CBC, BMP #### [facility] [address] Poikilocytosis Slight Normal [facility] Comment on above: Performed By: #### S CAN CBC, BMP #### [facility] [address] RBC (Bld) [#/Vol] 4.64 10*6/uL Normal 3.90-5.60 [facility] Comment on above: Performed By: #### S CAN CBC, BMP #### [facility] [address] WBC (Bld) [#/Vol] 16.2 10*3/uL High 4.1-10.5 [facility] Comment on above: Performed By: #### S CAN CBC, BMP #### [facility] [facility] [address] Serum or plasma anion gap de terminationOrdered By: Arden Marin on 12-19-2023 Anion gap [Moles/Vol] 9.1 mmol/L 6.0-15.0 [facility] Sodium [Moles/volume] in Ser um or PlasmaOrdered By: Arden Marin on 12-19-2023 Sodium [Moles/Vol] 134 mmol/L 136-145 [facility] Urea nitrogen [Mass/volume] in Serum or PlasmaOrdered By: Arden Marin on 12-19-2023 Urea nitrogen [Mass/Vol] 23 mg/dL 7-25 [facility] WBC Auto (Bld) [#/Vol]Ordere d By: Arden Marin on 12-19-2023 WBC (Bld) [#/Vol] 16.2 10*3/uL 4.1-10.5 [facility] Consultation Noteon 10-12-19 Consultation Note [id number]#1. 00TIFF Viktor Kyle [facility] CNOVon 10-11-2023 CNOV Office Visit (RADTSA ) OJSE CAN ([id number]) 1940 M Date Time Provider Department 10/11/23 9:15 AM Jc MENDIOLA During your visit today, we recorded the following information about you: Temperature Pulse Respiration Blood pressure 97.3 degrees 87/minute 16/minute 125/67 Weight 86 kg Jc Mendiola MD 10/11/2023 9:38 AM Signed Radiation Oncology - Follow Up Note PATIENT NAME: Jose Can PATIENT DIAGNOSIS: Prostate adenocarcinoma, initial PSA 3.1, biopsy Hamer score 3 + 4 = 7 (grade [...] ASSESSMENT/PLAN: Prostate adenocarcinoma, initial PSA 3.1, biopsy Hamer score 3 + 4 = 7 (grade [...] Mendiola MD cc: Martir Herbert II, MD [address] [place] [address] Debra Anthony LPN 10/11/2023 9:38 AM Signed AUA= 5 Allergies As of Date: 10/11/2023 Noted Allergy Reaction PENICILLINS 02/16/2023 2 - Rash SULFA (SULFONAMIDE ANTIBIOTICS) 02/16/2023 2 - Rash Date Reviewed: 09/19/2023 Reviewed by: Debra Quinn LPN - Fully Assessed Primary Visit Diagnosis:Malignant neoplasm of prostate (HCC) [C61] Order(s):PSA (OUTSIDE) [4196126] Order #: [id number] PSA/PROSTSPECAG DIAG [SQPSA] Order #: [id number] FUTURE Prescriptions as of 10/11/2023 - simvastatin [...] for Encounter Date Provider Department Center 10/11/2023 [id number] MENDIOLAY Encounter Status:Closed by Jc MENDIOLA on 10/11/23 [facility] 10-09-19 Consultation Note [id number]# 1.00TIFF Normal [facility] ED Note-Physicianon 10-09-19 ED Note-Physician [id number]#1. 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 Take djda-uvn-vgzasjq or prescription medicines. ? Eat foods that are high in fiber, such as beans, whole grains, and fresh fruits and vegetables. ? Limit foods that are high in fat and processed sugars, such as fried or sweet foods. General instructions ? Take etbh-uya-hrppasc and prescription medicines only as told by [...] away if: (more content not included)... Normal [facility] Urology Office/Clinic Noteon 10-08-2023 Urology Office/Clinic [...] 09/12/23 in our office. Then presented to [facility] ER due to inability to urinate after [...] (7 mm x 4mm). TRUS/bx 01/16/23 - Hamer 6 (3+3) in 4 cores and Alpa [...] our office after brachytherapy. Then presented to [facility] ER due to inability to urinate after catheter removal. Bladder scan was >500mL. Dc'd home with Mendoza catheter in place. Came to our office 09/21/23 for catheter removal per approval of PRW. Reports he has not had any issues urinating since. Follow-up With When Contact Information LADAN EDWARDS, Abran Darling, URL [facility] [address], [place] [address] [phone] Additional Instructions: 3 mos w/ PSA Patient [...] Hiatus hernia rep (more content not included)... [facility] Comment on above: Result Comment: [...] Abran OCHOA MD Where: [facility] Normal [address] [place] [address] [place] [address]- \.br\ Medications\.b r\ What When Instructions\. br\ [...] for choosing us for your care.\.br\ \.br\ [facility] CNOVon 09-19-2023 CNOV Office Visit (RADTSA ) JOSE CAN ([id number]) 1940 M Date Time Provider Department 09/19/23 [...] ASSESSMENT/PLAN: Prostate adenocarcinoma, initial PSA 3.1, biopsy Hamer score 3 + 4 = 7 (grade [...] Mendiola MD cc: Martir Herbert II, MD [address] [place] [address] No referring provider defined for this encounter. Allergies As of Date: 09/19/2023 Noted Allergy Reaction PENICILLINS 02/16/2023 2 - Rash SULFA (SULFONAMIDE ANTIBIOTICS) 02/16/2023 2 - Rash Date Reviewed: 09/19/2023 Reviewed by: Debra Quinn LPN - Fully Assessed Reason for Visit: Prostate Cancer [590] Primary Visit Diagnosis:Malignant neoplasm of prostate (HCC) [C61] Order(s):PSA/PROSTSPE CAG DIAG [SQPSA] Order #: [id number] FUTURE Prescriptions as of 09/19/2023 - simvastatin [...] for Encounter Date Provider Department Center 09/19/2023 [id number] MENDIOLA [facility] Encounter Status:Closed by Jc MENDIOLA on 09/19/23 [facility] Ambulatory Visit Summaryon 1 11-13-2022 Ambulatory Visit [...] EDWARDS, Abran Darling Where: [facility] [address] [place] [address]- \.br\ Medications\.b r\ What When Instructions\. br\ [...] for choosing us for your care.\.br\ \.br\ [facility] Lab Reportson 09-07-2023 Lab Reports [id number]#1 .00TIFF [facility] Operative Reporton Operative Report [id number]#1 .00TIFF [facility] RAD - MISCon 09-07-2023 RAD - MISC [id number]#1 .00TIFF Normal [facility] CNOVon 09-06-2023 CNOV Office Visit (RADTSA ) JOSE CAN ([id number]) 1940 M Date Time Provider Department 09/06/23 [...] Encounter Status:Closed by Jc MENDIOLA on 09/06/23 [facility] Consultation Noteon 08-10-20 Consultation Note [id number]#1 .00TIFF [facility] 07-24-2023 [facility] Telephone (RADTSA) JOSE CAN ([id number]) 1940 M Date Time Provider Department 07/24/23 [...] Status:Closed by DEBRA QUINN on 07/25/23 Normal [facility] ECG 12-Leadon 07-24-2023 ECG 12-Lead [id number]#1 .00TIFF Normal [facility] Formson 07-24-2023 Forms [id number]#1 .00TIFF Normal [facility] ECG 12-Leadon 07-20-2023 ECG 12-Lead [id number]#1 .00TIFF Normal [facility] Lab Reportson 07-20-2023 Lab Reports [id number]#1. 00TIFF Normal [facility] Lab Reports [id number] 0 [id number] #1.00TIFF Normal [facility] Lab Reports [id number]#1. 00TIFF Normal [facility] RAD - MISCon 07-20-2023 RAD - MISC [id number]#1. 00TIFF Normal [facility] CNOVon 07-11-2023 CNOV Office Visit (RADTSA ) JOSE CAN ([id number]) 1940 Date Time Provider Department 07/11/23 11:30 [...] Encounter Status:Closed by Jc MENDIOLA on 07/12/23 [facility]Colibri [facility] ValveA[facility] JOSE CAN ([id number]) 1940 M Date Time Provider Department 06/04/23 Jc MENDIOLA Colibri Heart ValveA During your visit today, we recorded the [...] 81 mg by mouth once daily. - [facility] PRODUCT Eye and vision supplement Problem List As Of Date: 06/04/2023 (None) Encounter Status:Closed by NICHELLE ELKINS on 06/04/23 [facility] 05-29-2023 L - -------- Specimen: [id number] Received: 05/29/23 Status: JORGEGilmar Capellan Num: [id number] Spec Type: Surgical Subm Dr: Juan Jiang MD Tissues: A Colon Biopsy (ASCENDING POLYP) Procedures: HENOK/Josselin, Gross/Micro L4 -------- Age/ Patient Sex Location Account Attending Physician -------- Jose Can /M [id number] Juan Jiang MD -------- SPEC NUM: [id number] RECD: 05/29/23 STATUS: RANDI CAPELLAN NUM: [id number] FAIZAN: 05/29/23 DR: Juan Jiang MD ENTERED: 05/29/[address] [facility] [address]: IRVIN TYPE: Surgical DEPT: [...] microscopic examination confirms the diagnosis. CPT Codes 19132 -------- -------- Specimen: [id number] Received: 05/29/23 Status: RANDI Capellan Num: [id number] Spec Type: Surgical Subm Dr: Juan Jiang MD Tissues: A Colon Biopsy (ASCENDING POLYP) Procedures: HE/2, Gross/Micro L4 -------- Patient: Jose Can [id number] (Continued) -------- Signed (signature on file) Kashmir Linares MD 05/31/23 [id number] Normal [facility] CNPRosa Isela 05-02-2023 CNPN Telephone (RADTSA) JOSE CAN ([id number]) 1940 M Date Time Provider Department 05/02/23 [...] done per Dr Franco at [facility] in 2016. It was normal. [...] Status:Closed by NICHELLE ELKINS on 05/29/23 Normal [facility] Creatinine (Bld) [Mass/Vol]O rdered By: Abran Ochoa on 12-19-2022 Creatinine [Mass/Vol] 0.9 mg/dL 0.6-1.3 [facility] Comment on above: ER/ESD physician is notified/shown all ISTAT results.Critical values may be confirmed by laboratory testing ifdeemed necessary by ER attending doctor. PSA, FREE AND TOTAL RATIOon 10-18-2022 % Free PSA 21.9 % Normal [facility] Comment on above: Result [...] #### P SAFREE #### [facility] [address] [place] [address] Dr. Deisi Bush Prostate specific Ag [Mass/Vol] 3.1 ng/mL Normal 0.0-4.0 [facility] Comment on above: Result Comment: Cris PRAJAPATI methodology. . According to the [employer], Serum PSA should decrease and [...] #### P SAFREE #### [facility] [address] [place] [address] Dr. Deisi Bsuh PSA, Free 0.68 ng/mL Normal N/A [facility] Comment on above: Result Comment: Cris PRAJAPATI methodology. Performed By: #### P SAFREE #### [facility] [address] [place] [address] Dr. Deisi Bush CBC AUTO DIFFon 03-04-2022 BASO # 0.0 103/ul Normal 0.0-0.1 [facility] Comment on above: Performed By: #### C BC #### [facility] [address] [place] [address] Dr. Deisi uBsh Basophils/100 WBC (Bld) 0.6 % Normal 0.2-2.0 [facility] Comment on above: Performed By: #### C BC #### [facility] [address] [place] [address] Dr. Deisi Bush EO # 0.5 103/ul Normal 0.0-0.7 [facility] Comment on above: Performed By: #### C BC #### [facility] [address] [place] [address] Dr. Deisi Bush Eosinophils/100 WBC (Bld) 10.2 % Critically high 0.9-7.0 [facility] Comment on above: Performed By: #### C BC #### [facility] [address] [place] [address] Dr. Deisi Bush Erythrocyte distribution width (RBC) [Ratio] 13.4 % Normal 11.0-15.0 [facility] Comment on above: Performed By: #### C BC #### [facility] [address] [address] [address] Deisi Bush Hematocrit (Bld) [Volume fraction] 42.3 % Normal 42.0-54.0 [facility] Comment on above: Performed By: #### C BC #### [facility] [address] [address] [address] Deisi Bush Hemoglobin (Bld) [Mass/Vol] 14.1 g/dL Normal 14.0-18.0 [facility] Comment on above: Performed By: #### C BC #### [facility] [address] [place] [address] Dr. Deisi Bush IG # 0.01 10e3/ul Normal 0.00-0.03 [facility] Comment on above: Performed By: #### C BC #### [facility] [address] [place] [address] Dr. Deisi Bush IG % 0.2 % Normal 0.0-0.5 [facility] Comment on above: Performed By: #### C BC #### [facility] [address] [place] [address] Dr. Deisi Bush LYMPH # 2.4 103/ul Normal 1.2-3.8 [facility] Comment on above: Performed By: #### C BC #### [facility] [address] [place] [address] Dr. Deisi Bush Lymphocytes/100 WBC (Bld) 46.5 % Normal 20.5-60.0 [facility] Comment on above: Performed By: #### C BC #### [facility] [address] [place] [address] Dr. Deisi Bush MANUAL DIFF REQ NO Normal [facility] Comment on above: Performed By: #### C BC #### [facility] [address] [place] [address] Dr. Deisi Bush MCH (RBC) [Entitic mass] 30.5 pg Normal 25.9-34.0 [facility] Comment on above: Performed By: #### C BC #### [facility] [address] [address] [address] Deisi Bush MCHC (RBC) [Mass/Vol] 33.3 g/dL Normal 29.9-35.2 [facility] Comment on above: Performed By: #### C BC #### [facility] [address] [address] [address] Deisi Bush MCV (RBC) [Entitic vol] 91.4 fL Normal 80.0-94.0 [facility] Comment on above: Performed By: #### C BC #### [facility] [address] [address] [address] Deisi Bush MONO # 0.6 103/ul Normal 0.3-0.8 [facility] Comment on above: Performed By: #### C BC #### [facility] [address] [address] [address] Deisi Bush Monocytes/100 WBC (Bld) 10.6 % Normal 1.7-12.0 [facility] Comment on above: Performed By: #### C BC #### [facility] [address] [address] [address] Deisi Bush NEUT # 1.7 103/ul Normal 1.4-6.5 [facility] Comment on above: Performed By: #### C BC #### [facility] [address] [address] [address] Deisi Bush Neutrophils/100 WBC (Bld) 31.9 % Critically low 43.0-75.0 [facility] Comment on above: Performed By: #### C BC #### [facility] [address] [address] [address] Deisi Bush Platelet mean volume (Bld) [Entitic vol] 9.2 fL Critically low 9.5-13.5 [facility] Comment on above: Performed By: #### C BC #### [facility] [address] [address] [address] Deisi Bush PLT 219 103/ul Normal 150-450 [facility] Comment on above: Performed By: #### C BC #### [facility] [address] [address] [address] Deisi Bush RBC 4.63 106/ul Critically low 4.70-6.10 [facility] Comment on above: Performed By: #### C BC #### [facility] [address] [address] [address] Deisi Bush WBC 5.2 103/ul Normal 4.0-11.0 [facility] Comment on above: Performed By: #### C BC #### [facility] [address] [place] [address] Dr. Deisi Bush LIPID PROFILEon 03-04-2022 CHOL-HDL RATIO NORM SEE BELOW Normal [facility] Comment on above: Result Comment: 3.3 - 4.4 LOW RISK 4.4 - 7.1 AVERAGE RISK 7.1 - 11.0 MODERATE RISK >11.0 HIGH RISK Performed By: #### T SH, LIPID, CMP #### [facility] [address] [place] [address] Dr. Deisi Bush Cholesterol [Mass/Vol] 125 mg/dL Normal <=[address] [facility] Comment on above: Performed By: #### T SH, LIPID, CMP #### [facility] [address] [place] [address] Dr. Deisi Bush Cholesterol in HDL [Mass/Vol] 37 mg/dL Critically low 40-60 [facility] Comment on above: Performed By: #### T SH, LIPID, CMP #### [facility] [address] [place] [address] Dr. Deisi Bush Cholesterol in LDL [Mass/Vol] 75.6 mg/dL Normal [facility] Comment on above: Performed By: #### T SH, LIPID, CMP #### [facility] [address] [place] [address] Dr. Deisi Bush Cholesterol.total/Chol esterol in HDL [Mass ratio] 3.4 {ratio} Normal [facility] Comment on above: Performed By: #### T SH, LIPID, CMP #### [facility] [address] [place] [address] Dr. Deisi Bush HDL NORMAL > or = 60 mg/dl - LO W CARDIOVASCULAR RISK <40 mg/dl - HIGH CARDIOVASCULAR RISK Normal [facility] Comment on above: Performed By: #### T SH, LIPID, CMP #### [facility] [address] [address] [address] Deisi Bush LDL CALC NORMAL SEE BELOW Normal [facility] Comment on above: Result Comment: <100 mg/dl OPTIMAL 100 - 129 mg/dl NEAR OR ABOVE OPTIMAL 130 - 159 mg/dl BORDERLINE HIGH 160 - 189 mg/dl HIGH >190 mg/dl VERY HIGH Performed By: #### T SH, LIPID, CMP #### [facility] [address] [address] [address] Deisi Bush Triglyceride [Mass/Vol] 62 mg/dL Normal <=150 [facility] Comment on above: Performed By: #### T SH, LIPID, CMP #### [facility] [address] [address] [address] Deisi Bush VLDL CALC 12.4 mg/dL Normal [facility] Comment on above: Performed By: #### T SH, LIPID, CMP #### [facility] [address] [address] [address] Deisi Bush PROF 14(COMP METB)on 022 Albumin [Mass/Vol] 3.4 g/dL Normal 3.4-5.0 [facility] Comment on above: Performed By: #### T SERGIO, LIPID, CMP #### [facility] [address] [address] [address] Deisi Bush Albumin/Globulin [Mass ratio] 0.9 {ratio} Normal [facility] Comment on above: Performed By: #### T SH, LIPID, CMP #### [facility] [address] [address] [address] Deisi Bush ALP [Catalytic activity/Vol] 73 U/L Normal 46-116 [facility] Comment on above: Performed By: #### T SH, LIPID, CMP #### [facility] [address] [address] [address] Deisi Bush ALT [Catalytic activity/Vol] 27 U/L Normal 16-63 [facility] Comment on above: Performed By: #### T SH, LIPID, CMP #### [facility] [address] [address] [address] Deisi Bush Anion gap [Moles/Vol] 11.6 mmol/L Normal [facility] Comment on above: Performed By: #### T SH, LIPID, CMP #### [facility] [address] [address] [address] Deisi Bush AST [Catalytic activity/Vol] 22 U/L Normal 15-37 [facility] Comment on above: Performed By: #### T SH, LIPID, CMP #### [facility] [address] [address] [address] Deisi Bush Bilirubin [Mass/Vol] 1.1 mg/dL Critically high 0.2-1.0 [facility] Comment on above: Performed By: #### T SH, LIPID, CMP #### [facility] [address] [place] [address] Dr. Deisi Bush Calcium [Mass/Vol] 8.7 mg/dL Normal 8.5-10.1 [facility] Comment on above: Performed By: #### T SH, LIPID, CMP #### [facility] [address] [place] [address] Dr. Deisi Bush Chloride [Moles/Vol] 105 mmol/L Normal 98-107 [facility] Comment on above: Performed By: #### T SH, LIPID, CMP #### [facility] [address] [place] [address] Dr. Deisi Bush CO2 [Moles/Vol] 27.6 mmol/L Normal 21.0-32.0 [facility] Comment on above: Performed By: #### T SH, LIPID, CMP #### [facility] [address] [place] [address] Dr. Deisi Bush Creatinine [Mass/Vol] 0.90 mg/dL Normal 0.70-1.30 [facility] Comment on above: Performed By: #### T SH, LIPID, CMP #### [facility] [address] [place] [address] Dr. Deisi Bush EGFR-AF BELIZEAN >60 Normal >=60 [facility] Comment on above: Performed By: #### T SH, LIPID, CMP #### [facility] [address] [place] [address] Dr. Deisi Bush EGFR-NON AF BELIZEAN >60 Normal >=60 [facility] Comment on above: Performed By: #### T SH, LIPID, CMP #### [facility] [address] [place] [address] Dr. Deisi Bush Globulin (S) [Mass/Vol] 3.6 g/dL Normal [facility] Comment on above: Performed By: #### T SH, LIPID, CMP #### [facility] [address] [place] [address] Dr. Deisi Bush Glucose [Mass/Vol] 96 mg/dL Normal 74-106 [facility] Comment on above: Performed By: #### T SH, LIPID, CMP #### [facility] [address] [place] [address] Dr. Deisi Bush Potassium [Moles/Vol] 4.2 mmol/L Normal 3.5-5.1 [facility] Comment on above: Performed By: #### T SH, LIPID, CMP #### [facility] [address] [place] [address] Dr. Deisi Bush Protein [Mass/Vol] 7.0 g/dL Normal 6.4-8.2 [facility] Comment on above: Performed By: #### T SH, LIPID, CMP #### [facility] [address] [place] [address] Dr. Deisi Bush Sodium [Moles/Vol] 140 mmol/L Normal 136-145 [facility] Comment on above: Performed By: #### T SH, LIPID, CMP #### [facility] [address] [place] [address] Dr. Deisi Bush Urea nitrogen [Mass/Vol] 16.0 mg/dL Normal 7.0-18.0 [facility] Comment on above: Performed By: #### T SH, LIPID, CMP #### [facility] [address] [place] [address] Dr. Deisi Bush Urea nitrogen/Creatinine [Mass ratio] 17.8 mg/mg Normal [facility] Comment on above: Performed By: #### T SH, LIPID, CMP #### [facility] [address] [address] [address] Deisi Bush TSHon 03-04-2022 TSH 1.259 uIU/mL Normal 0.358-3.740 [facility] Comment on above: Performed By: #### T SH, LIPID, CMP #### [facility] [address] [address] [address] Deisi Bush TSH RANGE SEE BELOW Normal [facility] Comment on above: Result Comment: <0.3 4 UIU/ml HYPERTHYROID 0.34-5.60 UIU/ml EUTHYROID >5.60 UIU/ml HYPOTHYROID Performed By: #### T SH, LIPID, CMP #### [facility] [address] [address] [address] Deisi Bush Lipid Panelon 09-21-2021 Cholesterol [Mass/Vol] 181 mg/dL Normal 125-200 [facility] Comment on above: Result Comment: Low risk < 200mg/dL Borderline risk 201-239 mg/dl High risk > or equal to 240 Performed By: #### L IPD #### [facility] [address] [place], [place] [id number] Cholesterol in HDL [Mass/Vol] 41 mg/dL Normal >40 [facility] Comment on above: Result Comment: High Cardiovascular Risk HDL <40 mg/dL Low Cardiovascular Risk HDL > or equal to 60 mg/dl Performed By: #### L IPD #### [facility] [address] [place], [place] [id number] Cholesterol in LDL [Mass/Vol] 126 mg/dL Normal [facility] Comment on above: Result Comment: LDL ATP III CLASSIFICATION LDL less than 100 mg/dl Optimal LDL 100-129 mg/dl Near or above optimal LDL 130-159 Borderline high LDL 160-189 High LDL greater than 189 mg/dl Very High Performed By: #### L IPD #### [facility] [address] [place] [place] [id number] Cholesterol in VLDL [Mass/Vol] 14 mg/dL Normal [facility] [employer] [employer] Comment on above: Performed By: #### L IPD #### [facility] [address] [place], [place] [id number] Cholesterol.total/Chol esterol in HDL [Mass ratio] 4 {ratio} Normal [facility] [employer] Comment on above: Performed By: #### L IPD #### [facility] [address] [place], [place] [id number] Triglyceride [Mass/Vol] 72 mg/dL Normal 30-150 [facility] Filling Machine Set Up Mechanic Comment on above: Result Comment: TRIG ATPIII CLASSIFICATIONS TRIG less than 150 mg/dl Normal TRIG 150-199 mg/dl Borderline High TRIG 200-500 mg/dl High TRIG greather than 500 mg/dl Very High Performed By: #### L IPD #### [facility] [address] [place], [place] [id number] PSA SCREEN (MEDICARE)on 08-25 TPSA 3.110 ng/mL Normal <4.000 [facility] Filling [facility] [employer] Up Mechan[employer] Comment on above: Result Comment: PSA Test Method: ECLIA/Saw e 601 Performed By: #### P SA MC #### [facility] [address], [place] [id number] Vital Signs Date Time Vital Sign Value Performing Clinician Facility 07-04-2024 09:16-0400 Blood Pressure Location Abran OCHOA [facility] 07-04-2024 09:16-0400 Body temperature 98.6 [degF] Abran OCHOA [facility] 07-04-2024 09:16-0400 Diastolic blood pressure 77 mm[Hg] Abran OCHOA [facility] 07-04-2024 09:16-0400 Heart rate 64 /min Abran OCHOA [facility] 07-04-2024 09:16-0400 Respiratory rate 17 /min Abran OCHOA [facility] 07-04-2024 09:16-0400 Systolic blood pressure 131 mm[Hg] Abran OCHOA [facility] 04-10-2024 09:29-0400 Body mass index (BMI) [Ratio] 27.77 kg/m2 KENDRICK Mendiola MD Work Phone: [facility] 04-10-2024 09:29-0400 Body temperature 97.39 [degF] KENDRICK Mendiola MD Work Phone: [facility] 04-10-2024 09:29-0400 Body weight 85.3 kg KENDRICK Mendiola MD Work Phone: [facility] 04-10-2024 09:29-0400 Diastolic blood pressure 78 mm[Hg] KENDRICK Mendiola MD Work Phone: [facility] 04-10-2024 09:29-0400 Heart rate 71 /min KENDRICK Mendiola MD Work Phone: [facility] 04-10-2024 09:29-0400 Respiratory rate 18 /min KENDRICK Mendiola MD Work Phone: [facility] 04-10-2024 09:29-0400 SaO2% (BldA) [Mass fraction] 96 % KENDRICK Mendiola MD Work Phone: [facility] 04-10-2024 09:29-0400 Systolic blood pressure 152 mm[Hg] KENDRICK Mendiola MD Work Phone: [facility] 12-28-2023 08:06-0400 Blood Pressure Location Abran OCHOA [facility] 12-28-2023 08:06-0400 Diastolic blood pressure 87 mm[Hg] Abran OCHOA [facility] 12-28-2023 08:06-0400 Heart rate 51 /min Abran OCHOA [facility] 12-28-2023 08:06-0400 Respiratory rate 16 /min Abran OCHOA [facility] 12-28-2023 08:06-0400 Systolic blood pressure 131 mm[Hg] Abran OCHOA [facility] 12-19-2023 09:30-0400 Diastolic blood pressure 89 mm[Hg] II Martir Herbert Work Phone: [facility] 12-19-2023 09:30-0400 Heart rate 51 /min II Martirheraclio Herbert Work Phone: [facility] 12-19-2023 09:30-0400 Respiratory rate 16 /min II Martirheraclio Herbert Work Phone: [facility] 12-19-2023 09:30-0400 SaO2% (BldA) [Mass fraction] 97 % II Martir Herbert Work Phone: [facility] 12-19-2023 09:30-0400 Systolic blood pressure 165 mm[Hg] II Martir Herbert Work Phone: [facility] 12-19-2023 07:04-0400 Body height 175.26 cm II Martir Herbert Work Phone: [facility] 12-19-2023 07:04-0400 Body mass index (BMI) [Ratio] 28.8 kg/m2 II Martir Herbert Work Phone: [facility] 12-19-2023 07:04-0400 Body weight 88.45 kg II Martirheraclio Herbert Work Phone: [facility] 12-19-2023 06:22-0400 Body temperature 97.6 [degF] II Martir Herbert Work Phone: [facility] 12-18-2023 11:59-0400 Body height 175.26 cm [facility] 12-18-2023 11:59-0400 Body mass index (BMI) [Ratio] 26.6 kg/m2 [facility] 12-18-2023 11:59-0400 Body temperature 97.6 [degF] [facility] 12-18-2023 11:59-0400 Body weight 81.64 kg [facility] 12-18-2023 11:59-0400 Diastolic blood pressure 72 mm[Hg] [facility] 12-18-2023 11:59-0400 Heart rate 62 /min [facility] 12-18-2023 11:59-0400 Respiratory rate 16 /min [facility] 12-18-2023 11:59-0400 SaO2% (BldA) [Mass fraction] 98 % [facility] 12-18-2023 11:59-0400 Systolic blood pressure 120 mm[Hg] [facility] 10-08-2023 09:53-0500 Blood Pressure Location Abran OCHOA [facility] 10-08-2023 09:53-0500 Diastolic blood pressure 74 mm[Hg] Abran OCHOA [facility] 10-08-2023 09:53-0500 Heart rate 72 /min Abran OCHOA [facility] 10-08-2023 09:53-0500 Respiratory rate 16 /min Abran OCHOA [facility] 10-08-2023 09:53-0500 Systolic blood pressure 130 mm[Hg] Abran OCHOA [facility] 05-29-2023 09:10-0400 Diastolic blood pressure 67 mm[Hg] MANGO Herbert Work Phone: [facility] 05-29-2023 09:10-0400 Heart rate 51 /min MANGO Herbert Work Phone: [facility] 05-29-2023 09:10-0400 Respiratory rate 16 /min II Martir Herbert Work Phone: [facility] 05-29-2023 09:10-0400 SaO2% (BldA) [Mass fraction] 96 % II Martir Herbert Work Phone: [facility] 05-29-2023 09:10-0400 Systolic blood pressure 131 mm[Hg] II Martir Herbert Work Phone: [facility] 05-29-2023 07:30-0400 Body height 175.26 cm II Martir Herbert Work Phone: [facility] 05-29-2023 07:30-0400 Body temperature 98 [degF] II Martir Herbert Work Phone: [facility] 05-29-2023 07:30-0400 Body weight 81.64 kg II Martir Herbert Work Phone: [facility] 02-05-2023 08:47-0400 Diastolic blood pressure 80 mm[Hg] Abran OCHOA [facility] 02-05-2023 08:47-0400 Mean blood pressure 103 mm[Hg] Abran OCHOA [facility] 02-05-2023 08:47-0400 Systolic blood pressure 150 mm[Hg] Abran OCHOA [facility] 02-05-2023 08:42-0400 Blood Pressure Location Abran COHOA [facility] 02-05-2023 08:42-0400 Diastolic blood pressure 80 mm[Hg] Abran OCHOA [facility] 02-05-2023 08:42-0400 Heart rate 53 /min Abran OCHOA [facility] 02-05-2023 08:42-0400 Systolic blood pressure 154 mm[Hg] Abran OCHOA [facility] 12-19-2022 06:51-0400 Body height 177.8 cm II Martir Herbert Work Phone: [facility] 12-19-2022 06:51-0400 Body weight 81.64 kg II Martir Herbert Work Phone: [facility] 12-04-2022 12:26-0400 Blood Pressure Location Abran OCHOA [facility] 12-04-2022 12:26-0400 Diastolic blood pressure 70 mm[Hg] Abran OCHOA [facility] 12-04-2022 12:26-0400 Heart rate 64 /min Abran OCHOA [facility] 12-04-2022 12:26-0400 Systolic blood pressure 149 mm[Hg] Abran OCHOA [facility] Encounters Encounter Date Encounter Type Care Provider Facility Start: 07-06-[address] [facility] Start: 09-25-2024 End: 09-25-2024 Clinisync Result [...] Start: 07-04-2024 End: 07-04-2024 ambulatory Abran OCHOA Facility:[facility] Start: 07-04-2024 End: 07-04-2024 Patient encounter procedure Abran OCHOA [facility] Start: 07-01-2024 End: 07-01-2024 Clinisync Result [...] 04-10-2024 End: 04-10-2024 ambulatory MARTIR HERBERT II Facility:[facility] Start: 03-26-2024 End: 03-26-2024 ambulatory MARTIR HERBERT Not Available Start: 12-28-2023 End: 12-28-2023 ambulatory Abran OCHOA Facility:[facility] Start: 12-28-2023 End: 12-28-2023 Patient encounter procedure Abran OCHOA [facility] Start: 12-20-2023 End: 12-20-2023 ambulatory MARTIR HERBERT Not Available Start: 12-19-2023 Non-patient / Non-visit II Domenic Herbert Work Phone: [facility] Vascular Surgery Work Phone: Start: 12-19-2023 End: 12-19-2023 ambulatory Armani Kelly Facility:[facility] Start: 12-19-2023 End: 12-19-2023 Admission to same day surgery center II Martir Herbert Work Phone: [facility] [place] Start: 12-19-2023 End: 12-19-2023 ambulatory II Martir Herbert Work Phone: [facility] Work Phone: Start: 12-18-2023 End: 12-18-[address] [facility] Work Phone: Start: 12-18-2023 End: 12-18-2023 Patient encounter procedure [facility] Vascular Surgery Work Phone: Start: 12-06-2023 End: 12-06-2023 ambulatory MARTIR HERBERT Not Available Start: 11-14-2023 End: 11-14-2023 ambulatory MARTIR HERBERT Not Available Start: 10-11-2023 End: 10-11-2023 ambulatory MARTIR HERBERT II Facility:[facility] Start: 10-08-2023 End: 10-08-2023 ambulatory Abran OCHOA Facility:[facility] Start: 10-08-2023 End: 10-08-2023 Patient encounter procedure [facility]CHO[facility] Start: 10-03-2023 End: 10-03-2023 ambulatory MARTIR HERBERT II Facility:[facility] Start: 10-03-2023 End: 10-03-2023 Subsequent hospital visit by physician Pet Ct Scan Yunier Lewis Work Phone: Radiology Pet [facility] Start: 09-21-2023 End: 09-21-2023 ambulatory Abran OCHOA Facility:[facility] [place] Start: 09-21-2023 End: 09-21-2023 Patient encounter procedure [facility] Start: 09-19-2023 End: 09-19-2023 ambulatory MARTIR HERBERT II Facility:[facility] Start: 09-12-2023 End: 09-12-2023 ambulatory Abranvalentin OCHOA Facility:[facility] [place] Start: 09-12-2023 End: 09-12-2023 Patient encounter procedure Abranvalentin OCHOA [facility] Start: 09-06-2023 End: 09-06-2023 ambulatory MARTIR HERBERT II Facility:[facility] Start: 09-06-2023 End: 09-06-2023 Patient encounter procedure Jc Mendiola MD Work Phone: Radiation Oncology Comment on above: Malignant neoplasm o f prostate (HCC) (Primary Dx) Start: 09-06-2023 End: 09-06-2023 ambulatory Abranvalentin OCHOA Facility:[id number] Start: 08-08-2023 ambulatory Abran Phong LADAN Facili ty:[facility] Start: 07-25-2023 Patient encounter procedure [facility] Provider [facility] Department Start: 07-24-2023 Telephone encounter G Chirag Mendiola MD Work Phone: Radiation Oncology Comment on above: Appointment Start: 07-11-2023 Patient encounter procedure Jc Mendiola MD Work Phone: [facility] Start: 07-11-2023 Radiation Oncology Note G Walter Mendiola MD Work Phone: Radiation Oncology Comment on above: Simulation Note Start: 07-11-2023 End: 07-11-2023 ambulatory MARTIR HERBERT II Facility:[facility] Start: 05-29-2023 End: 05-29-2023 ambulatory Martir Herbert Facility:[facility] Start: 05-29-2023 End: 05-29-2023 Admission to same day surgery center MANGO Herbert Work Phone: [facility] Work Phone: Start: 05-29-2023 End: 05-29-2023 ambulatory II Martir Herbert Work Phone: [facility] Work Phone: Start: 05-23-2023 Patient encounter procedure [facility]cf Provider [facility] Start: 05-02-2023 Telephone encounter G Chirag Mendiola MD Work Phone: Radiation Oncology Comment on above: Constipation; Rectal Bleeding; Future Appointment Start: 02-21-2023 Patient encounter procedure Ccf Provider [facility] Start: 02-05-2023 End: 02-05-2023 Patient encounter procedure Abran OCHOA [facility] Start: 01-16-2023 End: 01-16-2023 Patient encounter procedure Abran OCHOA [facility] Start: 12-19-2022 End: 12-19-2022 ambulatory II Martir Herbert Work Phone: [facility] Work Phone: Start: 12-19-2022 End: 12-19-2022 Patient encounter procedure II Martir Herbert Work Phone: [facility] [place] Work Phone: Start: 12-04-2022 End: 12-04-2022 Patient encounter procedure Abran OCHOA [facility] Start: 10-17-2022 End: 10-18-[address] ABRAN OCHOA Facility:[facility] Start: 09-22-2022 End: 09-22-2022 Patient encounter procedure Abran OCHOA [facility] Start: 03-04-2022 End: 03-05-2022 ambulatory [...] (2 - Td or Tdap) [facility] Start: 04-09-2025 End: 04-09-2025 Patient encounter procedure 04/09/2025 9:00 AM EDT Office Visit Radiation Oncology [address] [place] [address] [place] [address] Jc Mendiola MD [address] [place] [address] [place] [address] Followup Radiation Oncology Comment on above: Followup Start: 11-21-2024 End: 11-21-2024 Patient encounter procedure 11/21/2024 8:30 AM EST Office Visit [facility] [address] [facility] [address] [place] [address] Martir Herbert MD [address] [facility] [address] [place] [address] [facility] Start: 09-29-2024 End: 09-29-2024 Patient encounter procedure 09/29/2024 8:30 AM EST Office Visit [facility] [address] [facility] [address] [place] [address] Martir Herbert MD [address] [facility] [address] [place] [address] [facility] Start: 05-25-2024 Covid-19 Vaccine ( season) Covid-19 Vaccine ( season) [facility] Start: 05-25-2024 Influenza vaccination Influenza Vacc ine (#1) [facility] Start: 12-19-2023 [facility] Start: 12-19-2023 [facility] Start: 11-29-2023 Covid-19 Vaccine ( season) Covid-19 Vaccine ( season) [facility] Start: 09-24-2023 Advance Directive Discussion Advance Directive Discussion [facility] Start: 09-24-2023 Behavioral Health Screening Behavioral Health Screening [facility] Start: 05-29-2023 [facility] Start: 05-25-2023 Covid-19 Vaccine ( season) Covid-19 Vaccine ( season) [facility] Start: 05-25-2023 Influenza vaccination [facility] Start: 12-11-2022 COVID-19 VACCINE (5 - Pfizer series) COVID-19 VACCINE (5 - Pfizer series) [facility] Start: 09-24-2022 ADVANCE DIRECTIVE DISCUSSION ADVANCE DIRECTIVE DISCUSSION [facility] Start: 09-24-2022 DEPRESSION ASSESSMENT DEPRESSION ASS ESSMENT [facility] Start: 2006 PNEUMOCOCCAL: 65+ (1 - PCV) PNEUMOCOCCAL: 65+ (1 - PCV) [facility] Start: 2001 RSV Vaccine (1 - 1-d ose 60+ series) RSV Vaccine (1 - 1-dose 60+ series) [facility] Start: 11-24-1991 SHINGRIX VACCINE (1 of 2) SHINGRIX VACCINE (1 of 2) [facility] Start: 1986 DIABETES SCREEN DIABETES SCREEN [facility] Start: 1986 Diabetes Screening Diabetes Screenin g [facility] Start: 1960 Urine microalbumin profile DTAP,TDAP,TD (1 - Tdap) [facility] Start: 11-24-1959 Anxiety Screening Anxiety Screening [facility] Start: 11-24-1959 Depression Screening Depression Scre ening [facility] Patient referral [facility] Work Phone: [facility] Immunizations Immunization Date Immunization Notes Care Provider Alvin barker 07-31-2023 COVID-19 (PFIZER) 12Y and older II Martir Herbert Work Phone: [facility] 07-31-2023 influenza virus vacc ine, unspecified formulation Abran OCHOA [facility] 07-31-2023 Influenza, Seasonal, Quadrivalent, Adjuvanted Generic Provider [facility] 08-13-2022 influenza virus vacc ine, unspecified formulation Abran OCHOA [facility] 08-13-2022 Influenza, Seasonal, Quadrivalent, Adjuvanted Generic Provider [facility] 08-13-2022 SARS-CoV-2 (COVID-19 ) [id number] Abran OCHOA [facility] 12-18-2021 zoster vaccine recombinant Abran OCHOA [facility] 09-21-2021 zoster vaccine recombinant Abran OCHOA [facility] 09-19-2021 tetanus toxoid, redu lester diphtheria toxoid, and acellular pertussis vaccine, adsorbed Abran OCHOA [facility] 08-25-2021 influenza virus vacc ine, unspecified formulation Abran OCHOA [facility] 06-25-2021 influenza virus vacc ine, unspecified formulation Abran OCHOA [facility] 06-25-2021 Influenza, Seasonal, Quadrivalent, Adjuvanted Generic Provider [facility] 06-25-2021 SARS-CoV-2 (COVID-19 ) mRNA BNT-162b2 vax Abran OCHOA [facility] Comment on above: Result Comment: 2022: [id number] 11-14-2020 SARS-CoV-2 (COVID-19 ) mRNA BNT-162b2 vax Abran OCHOA [facility] Comment on above: Result Comment: 2022: [id number] 10-24-2020 SARS-CoV-2 (COVID-19 ) mRNA BNT-162b2 vax Abran OCHOA [facility] Comment on above: Result Comment: 2022: [id number] 07-03-2020 influenza, high dose seasonal, preservative-free Generic Provider [facility] 06-28-2020 influenza virus vacc ine, unspecified formulation Abran OCHOA [facility] 07-02-2019 influenza virus vacc ine, unspecified formulation Abran OCHOA [facility] 07-02-2019 pneumococcal conjuga te vaccine, 13 valent Abran OCHOA [facility] 07-02-2019 Seasonal trivalent influenza vaccine, adjuvanted, preservative free Generic Provider [facility] 06-29-2018 influenza virus vacc ine, unspecified formulation Abran OCHOA [facility] 06-29-2018 Seasonal trivalent influenza vaccine, adjuvanted, preservative free Generic Provider [facility] 06-21-2017 influenza virus vacc ine, unspecified formulation Abran OCHOA [facility] 08-18-2015 influenza virus vacc ine, unspecified formulation Abran OCHOA [facility] 08-18-2015 influenza, high dose seasonal, preservative-free Generic Provider [facility] 06-23-2014 influenza virus vacc ine, unspecified formulation Abran OCHOA [facility] 06-23-2014 influenza, seasonal, injectable, preservative free Generic Provider [facility] 07-01-2013 influenza virus vacc ine, unspecified formulation Abran OCHOA [facility] 07-01-2013 zoster vaccine, live Abran OCHOA [facility] 10-05-2009 pneumococcal polysaccharide vaccine, 23 valent Generic Provider [facility] Payers Date Payer Category Payer Self-pay 2022 Private Health Insurance [id number] 2006 Medicare [id number] 1959 Medicare [id number] 1959 Private Health Insurance [id number] 1941 Unknown [id number] 1941 Unknown [id number] [id number] 1941 Unknown [id number] [id number] 1941 Unknown [id number] [id number] 1941 Unknown [id number] [id number] 1941 Unknown [id number] [id number] 1941 Unknown [id number] [id number] 1941 Unknown [id number] [id number] 1941 Unknown [id number] [id number] 1941 Unknown [id number] [id number] 1941 Unknown [id number] [id number] 1941 Unknown [id number] [id number] 1941 Unknown [id number] [id number] 1941 Unknown [id number] [id number] Unknown Insurance No Card [id number] Unknown [id number] Unknown [id number] Social History Date Type Detail Facility Start: 09-01-2020 End: 11-12-2023 Tobacco smoking status Never smoked tobacco (finding) [facility] Tobacco smoking status Never [facility] Start: 02-16-2023 End: 11-14-2023 Sex Assigned At Male [facility] Start: 1940 Sex Assigned At Male [facility] Start: 02-16-2023 End: 11-12-2023 Tobacco use and exposure Smokeless tobacco non-user [facility] Start: 02-16-2023 End: 09-19-2023 Alcohol intake Ex-drinker (finding) [facility] Start: 1940 Sex Assigned At Not on file [facility] Start: 02-16-2023 End: 11-14-2023 History of Social function [facility] Goals Date Patient Goal Desired Activity /State Functional Status Date Assessment Result Facility 07-04-2024 Functional Status N/A [facility] 12-28-2023 Functional Status N/A [facility] 10-08-2023 Functional Status N/A [facility] 02-05-2023 Functional Status N/A [facility] 12-04-2022 Functional Status N/A [facility] Clinical Notes 02-23-2022 to 07-04-2024 [...] under a microscope. This is called the Hamer score and the total score can range from 6 10, indicating how likely it is that the cancer will spread (metastasize) to other parts of the body. The higher the score, the greater the likelihood that the cancer will spread. Hamer 6 or lower: This indicates that the [...] stress of having cancer. General instructions Take [id number] and prescription medicines only as told by your health care provider. If you have to go to the hospital, notify your cancer specialist (oncologist). Keep all follow-up visits. This is important. Where to find more information [employer]: www.cancer.org [employer] Oncology: www.cancer.net National Cancer [place]: www.cancer.gov Contact a health care provider if: [...] provider. Document Revised: 12/07/2021 Document Reviewed: 12/07/2021 PeerJ Patient Education 2023 [employer]. Follow Up Care 12/28/2023 08:57:43 With:LADAN EDWARDS, Abran Darling, URL Address: [facility] [address] , [place] [address]- When: Unknown [facility] 07-04-2024 Note Patient Education Oncology Prostate Cancer [...] under a microscope. This is called the Hamer score and the total score can range from 6?10, indicating how likely it is that the cancer will spread (metastasize) to other parts of the body. The higher the score, the greater the likelihood that the cancer will spread. ? Alpa 6 or lower: This indicates that the cancer cells look similar to normal prostate cells (well differentiated). ? Hamer 7: This indicates that the cancer cells look somewhat similar to normal prostate cells (moderately differentiated). ? Hamer 8, 9, or 10: This indicates that [...] the prostate gla (more content not included)... [facility] 04-10-2024 History of Present illness Narrative [...] Mendiola MD cc: Martir Herbert II, MD [address] [place] [address] Dr. Ochoa documented in this encounter [facility] 04-10-2024 Note HNO ID: [id number] Author: Jc MENDIOLA MD Service: ? Author [...] Mendiola MD cc: Martir Herbert II, MD [address] [place] [address] Dr. Ochoa [facility] 04-10-2024 Nurse Note LAY 4 Nichelle Elkins RN [facility] 04-10-2024 Nurse Note LAY 4 Nichelle Elkins RN documented in this encounter [facility] 12-28-2023 Hospital Discharge instructions Patient Education [...] urethra. Follow these instructions at home: Take nqnl-tfk-agunyaz and prescription medicines only as told by [...] provider. Document Revised: 03/29/2022 Document Reviewed: 03/29/2022 PeerJ Patient Education 2022 Apmetrix. Follow Up Care 12/04/2022 12:55:53 With:LADAN EDWARDS, Abran Darling, URL Address: [address] [place] [address]- When: Unknown [facility]23 Note HNO ID: [id number] Author: Jc MENDIOLA MD Service: ? Author [...] Mendiola MD cc: Martir Herbert II, MD [address] [place] [address] Dr. Ochoa [facility] 10-08-2023 Hospital Discharge instructions Patient Education [...] treat constipation, you may need to: Take jbud-rhi-pudegkw or prescription medicines. Eat foods that are high in fiber, such as beans, whole grains, and fresh fruits and vegetables. Limit foods that are high in fat and processed sugars, such as fried or sweet foods. General instructions Take jasp-eav-vkfqidk and prescription medicines only as told by [...] provider. Document Revised: 12/07/2021 Document Reviewed: 12/07/2021 PeerJ Patient Education 2022 Apmetrix. Follow Up Care 06/26/2023 12:00:57 With:LADAN EDWARDS, Abran Darling, URL Address: [facility] [address], [place] [phone] When: Unknown Comments:3 mos w/ PSA [facility] 10-03-2023 Note HNO ID: [id number] Author: Jc MENDIOLA MD Service: ? Author Type: Physician Type: Progress Notes Filed: 10/12/2023 11:35 Note Text: Patient: Jose Can Date:10/03/2023 [facility] Department of Radiation Oncology [facility] RADIATION ONCOLOGY POST SEED IMPLANT SIMULATION NOTE [...] Electronically Signed CHIRAG MENDIOLA M.D. 1:35 AM [facility] 09-19-2023 Note HNO ID: [id number] Author: Jc Mendiola MD Service: ? Author Type: Physician Type: Progress Notes Filed: 09/19/2023 4:02 PM Note Text: Radiation Oncology - Follow Up Note PATIENT NAME: Jose Can PATIENT DIAGNOSIS: Prostate adenocarcinoma, initial PSA 3.1, biopsy Hamer score 3 + 4 = 7 (grade [...] Mendiola MD cc: Martir Herbert II, MD [address] [place] [address] No referring provider defined for this encounter. [facility] 09-06-2023 Note HNO ID: [id number] Author: Jc Mendiola MD Service: ? Author [...] results documented. Edilma Mendiola MD [facility] 09-06-2023 History of Present illness Narrative [...] results documented. Edilma Mendiola MD [facility] documented in this encounter [facility] 08-25-2023 Note HNO ID: [id number] Author: Jc Mendiola MD Service: ? Author Type: Physician Type: Progress Notes Filed: 09/06/2023 12:36 AM Note Text: JOSE CAN [id number] 08/25/2023 [facility] Department of Radiation Oncology [facility] RADIATION ONCOLOGY BRACHYTHERAPY TREATMENT PLANNING NOTE For [...] Chirag Mendiola M.D. / NATY 33:42 PM [facility] 07-25-2023 Miscellaneous Notes Enriqueta pt's dtr, [...] Debra Quinn RN documented in this encounter [facility] 07-12-2023 Note HNO ID: [id number] Author: Jc Mendiola MD Service: ? Author [...] Visit completed when applicable. Jc Mendiola MD [facility] 07-11-2023 History of Present illness Narrative JOSE CAN [id number] 07/11/2023 [facility] Department of Radiation Oncology [facility] RADIATION ONCOLOGY SIMULATION NOTE DATE OF SIMULATION: 07/11/2023 MACHINE: [employer] Focus 500 Diagnosis: 185 (Prostate Gland) AREA:Prostate PATIENT POSITION: Supine CONTRAST: None PROTOCOL: None CONCURRENT THERAPY: None FIXATION DEVICE: UTS Stabilization device by [employer]. PROCEDURE: Patient was simulated in exaggerated dorsal lithotomy position. Serial images of the prostate were acquired using TRUS and reconstructed in 3D space. These images were imported into [employer] Prostate planning system where a plan was generated. ASSESSMENT/PLAN: Patient tolerated simulation procedure well. Electronically Signed Chirag Mendiola M.D. / NATY 35:19 PM documented in this encounter [facility] 07-11-2023 Note HNO ID: [id number] Author: Jc Mendiola MD Service: ? Author Type: Physician Type: Progress Notes Filed: 07/12/2023 12:35 AM Note Text: JOSE CAN [id number] 07/11/2023 [facility] Department of Radiation Oncology [facility] RADIATION ONCOLOGY SIMULATION NOTE DATE OF SIMULATION: 07/11/2023 MACHINE: [employer] Focus 500 Diagnosis: 185 (Prostate Gland) AREA:Prostate PATIENT POSITION: Supine CONTRAST: None PROTOCOL: None CONCURRENT THERAPY: None FIXATION DEVICE: UTS Stabilization device by [employer]. PROCEDURE: Patient was simulated in exaggerated dorsal lithotomy position. Serial images of the prostate were acquired using TRUS and reconstructed in 3D space. These images were imported into [employer] Prostate planning system where a plan was generated. ASSESSMENT/PLAN: Patient tolerated simulation procedure well. Electronically Signed Chirag Mendiola M.D. / NATY 35:19 PM [facility] 05-29-2023 Procedure note [facility] 05-03-2023 Miscellaneous Notes Patients daughter called [...] done per Dr Franco at [facility] in 2016. It was normal. Dr Mendiola-- please advise. Nichelle Elkins RN documented in this encounter [facility] 02-05-2023 Hospital Discharge instructions Patient Education [...] stress of having cancer. General instructions Take dvku-hwq-ofzhwcu and prescription medicines only as told by your health care provider. If you have to go to the hospital, notify your cancer specialist (oncologist). Keep all follow-up visits. This is important. Where to find more information [employer]: www.cancer.org [employer] of Clinical Oncology: www.cancer.net National Cancer [place]: www.cancer.gov Contact a health care provider if: [...] provider. Document Revised: 12/07/2021 Document Reviewed: 12/07/2021 PeerJ Patient Education 2022 Apmetrix. Follow Up Care 01/04/2023 12:26:51 With:LADAN EDWARDS, Abran Darling, URL Address: [facility] [address] , [place] [address]- [phone] When:Within 6 Month(s) Comments:Will refer to Dr. Mendiola [facility] 01-16-2023 Hospital Discharge instructions Patient [...] for your post-operative appointment in 1-2 weeks [phone] or [phone] Follow Up Care 01/04/2023 11:45:40 With:Abran OCHOA Address: [facility] [address] [place] [address]- [facility] (1) When: Unknown Comments:Keep scheduled appointment [facility] 12-04-2022 Hospital Discharge instructions Patient Education [...] urethra. Follow these instructions at home: Take wvbt-ujs-szmrpni and prescription medicines only as told by [...] 09/10/2006 Document Revised: 08/05/2019 Document Reviewed: 10/15/2017 PeerJ Patient Education Revelation. Follow Up Care 09/22/2022 08:10:59 With:Abran OCHOA MD, URL Address: [facility] [address] [place] [address] Dr, [place] [address]- When: Unknown [facility] 02-23-2022 Hospital Discharge instructions Follow Up Care 02/23/2022 13:31:33 With:Abran OCHOA MD, URL Address: [address] [place] [address]- When: Unknown [facility] Evaluation + Plan note Future Appointments Appointment Date:12/04/2022 12:15:00 PM Scheduled Provider:Abran OCHOA MD Location:[facility] Appointment Type:URO Office Visit [facility] Evaluation + Plan note Future Appointments Appointment Date:12/07/2023 08:00:00 AM Scheduled Provider:Abran OCHOA MD Location:[facility] Appointment Type:URO Office Visit [facility] Evaluation + Plan note Future Appointments Appointment Date:02/05/2023 08:30:00 AM Scheduled Provider:Abran OCHOA MD Location:[facility] Appointment Type:URO Office Visit Appointment Date:12/07/2023 08:00:00 AM Scheduled Provider:Abran OCHOA MD [facility] Office Visit Diagnostic Tests PendingProstate Histology ([facility]) 01/16/23 [facility] Evaluation + Plan note Future Appointments Appointment Date:12/07/2023 08:00:00 AM Scheduled Provider:Abran OCHOA MD [facility] Type:URO Office Visit Diagnostic Tests PendingPSA Total 02/05/23 [facility] Evaluation + Plan note Future Appointments Appointment Date:10/08/2023 09:30:00 AM Scheduled Provider:Abran OCHOA MD Location:[facility] Appointment Type:URO Office Visit Appointment Date:12/07/2023 08:00:00 AM Scheduled Provider:Abran OCHOA MD [facility] Type:URO Office Visit [facility] Evaluation + Plan note Future Appointments Appointment Date:12/28/2023 08:00:00 AM Scheduled Provider:Abran OCHOA MD Location:[facility] Appointment Type:URO Office Visit Diagnostic Tests PendingPSA Total 10/08/23 [facility] Evaluation + Plan note Future Appointments Appointment Date:07/04/2024 09:15:00 AM Scheduled Provider:Abran OCHOA MD [facility] Type:URO Office Visit Diagnostic Tests PendingPSA Total 04/24/24 [facility] Evaluation + Plan note Future Appointments Appointment Date:07/06/2025 08:45:00 AM Scheduled Provider:Abran OCHOA MD [facility] Type:[facility]O Office Visit [facility] Evaluation note No assessment inform ation available [facility] Work Phone: Evaluation note Diagnosis Rectal bleeding- Primary Hemorrhage of rectum and anus Constipation, unspecified constipation type Prostate cancer (HCC) Malignant neoplasm of prostate [facility] Malignant neoplasm of prostate (HCC)- Primary Malignant neoplasm of prostate [facility] [place] [facility] Diagnosis Onset Date Resolution Status Temporal arteritis acute [facility] Work Phone: Evaluation note* Diagnosis Malignant neoplasm of prostate (HCC)- Primary Malignant neoplasm of prostate [facility] Author Juan Jiang [facility] May 29, 2023 8:21am Note Date/Time May 29, 2023 8:21am [facility] [address] [place] [address] Gastroenterology H&P Signed Patient: Jose Can MR#: [id number] : 1940 Acct:[id number] Age/Sex: 82 / M Adm Date: 3 Loc: Room: Type: [facility] Attending Dr: Juan Jiang MD Copies [...] <Electronically signed by Juan Jiang MD> 05/29/23820 [facility] Work Phone: Hospital course Narrative No data available for this section [facility] Hospital Discharge instructions Additional Instructions [...] years. -Follow up with PCP. -Office number [phone]. [facility] Work Phone: Hospital Discharge instructions No data available for this section [facility] progress note No data available for this section [facility] reason for referral (narrative) , Refer to Dr. Mendiola for [employer] Referred by: Abran OCHOA MD [facility] Summary Purpose Family History Relationship [...] section and content) DATE CREATED AUTHOR 09/22/2021 [facility] dical Specialist DATE CREATED AUTHOR AUTHOR'S ORGANIZ ATION 10/18/2022 [facility] pital DATE CREATED AUTHOR AUTHOR'S ORGANIZ ATION 02/09/2024 [facility] DATE CREATED AUTHOR AUTHOR'S ORGANIZ ATION 03/27/2024 [facility] dical Specialists EPIC DATE CREATED AUTHOR AUTHOR'S ORGANIZ ATION 04/16/2024 [facility] DATE CREATED AUTHOR AUTHOR'S ORGANIZ ATION 07/06/2024 [facility] Patient Care team informatio n (unrecognized section and content) Team Status: Active Member Role Status Dates Martir Herbert II MD Primary Care Provider Active Team Status: Inactive Member Role Status Dates Martir Herbert II MD Primary Care Provider Active Abran Ochoa MD Attending Provider Active Partition Setter Relationship Specialty Start Date End Date Martir Herbert II [address] [place] [address] PCP - General Internal Medicine 02/06/23 Partition Setter Relationship Specialty Start Date End Date Martir Herbert II, MD [address] [place] [address] PCP - General Internal Medicine 02/06/23 Team Status: Inactive Member Role Status Dates Martir Herbert II MD Primary Care Provider Active Juan Jiang MD Attending Provider Active Partition Setter Relationship Specialty Start Date End Date Martir Herbert II, MD [address] [place] [address] PCP - General Internal Medicine 02/06/23 Partition Setter Relationship Specialty Start Date End Date Martir Herbert II, MD [address] [place] [address] PCP - General Internal Medicine 02/06/23 Partition Setter Relationship Specialty Start Date End Date Martir Herbert II, MD [address] [place] [address] PCP - General Internal Medicine 02/06/23 Partition Setter Relationship Specialty Start Date End Date Martir Herbert II, MD [address] [place] [address] PCP - General Internal Medicine 02/06/23 Team [...] Other Provider Active Start: December 19, 2023 Partition Setter Relationship Specialty Start Date End Date Martir Herbert II, MD [address] [place] [address] PCP - General Internal Medicine 02/06/23 Partition Setter Relationship Specialty Start Date End Date Martir Herbert MD [address] [place] [address] PCP - ACO Reach 02/15/23 Martir Herbert MD [address] [place] [address] PCP - General Internal Medicine 01/30/23 Partition Setter Relationship Specialty Start Date End Date Martir Herbert MD [address] [place] [address] PCP - ACO Reach 02/15/23 Martir Herbert MD [address] [place] [address] PCP - General Internal Medicine 01/30/23 Partition Setter Relationship Specialty Start Date End Date Martir Herbert MD [address] [place] [address] PCP - ACO Reach 02/15/23 Martir Herbert MD [address] [place] [address] PCP - General Internal Medicine 01/30/23 Goals [...] any alcohol or drug abuse patient.[facility] the event this information is protected by the Federal Confidentiality of Alcohol and Drug Abuse Patient Records regulations: The Federal rules restrict any use of the information to criminally investigate or prosecute any alcohol or drug abuse patient.[facility] the event this information is protected by the Federal Confidentiality of Alcohol and Drug Abuse Patient Records regulations: The Federal rules restrict any use of the information to criminally investigate or prosecute any alcohol or drug abuse patient.[facility] the event this information is protected by the Federal Confidentiality of Alcohol and Drug Abuse Patient Records regulations: The Federal rules restrict any use of the information to criminally investigate or prosecute any alcohol or drug abuse patient.[facility] the event this information is protected by the Federal Confidentiality of Alcohol and Drug Abuse Patient Records regulations: The Federal rules restrict any use of the information to criminally investigate or prosecute any alcohol or drug abuse patient.[facility] the event this information is protected by the Federal Confidentiality of Alcohol and Drug Abuse Patient Records regulations: The Federal rules restrict any use of the information to criminally investigate or prosecute any alcohol or drug abuse patient.[facility] the event this information is protected by the Federal Confidentiality of Alcohol and Drug Abuse Patient Records regulations: The Federal rules restrict any use of the information to criminally investigate or prosecute any alcohol or drug abuse patient.[facility] the event this information is protected by the Federal Confidentiality of Alcohol and Drug Abuse Patient Records regulations: The Federal rules restrict any use of the information to criminally investigate or prosecute any alcohol or drug abuse patient.[facility] the event this information is protected by the Federal Confidentiality of Alcohol and Drug Abuse Patient Records regulations: The Federal rules restrict any use of the information to criminally investigate or prosecute any alcohol or drug abuse patient.[facility] Reason for Visit (unrecogniz ed section [...] BE BASED ON THE PRIMARY CLINICAL RECORDS. [facility] [employer] [facility]. provides no warranty or guarantee of the accuracy or completeness of information in this document.
[2024-11-14 06:55] LABS: Basophils Absolute Auto 0.1 10^3/uL (0.0-0.1); Basophils Percent Auto 0.7 % (0.2-2.0); Eosinophils Absolute Auto 0.3 10^3/uL (0.0-0.7); Hematocrit 45.9 % (42.0-54.0); Hemoglobin 15.3 g/dL (14.0-18.0); Immature Granulocytes Abs Auto 0.01 10^3/uL (0.00-0.03); Immature Granulocytes Pct Auto 0.1 % (0.0-0.5); Lymphocytes Absolute Auto 2.2 10^3/uL (1.2-3.8); Lymphocytes Percent Auto 32.9 % (20.5-60.0); Mean Corpuscular HGB Conc 33.3 g/dL (29.9-35.2); Mean Corpuscular Hemoglobin 30.4 pg (25.9-34.0); Mean Corpuscular Volume 91.3 fL (80.0-94.0); Mean Platelet Volume 9.2 fL (9.5-13.5); Monocytes Absolute Auto 0.8 10^3/uL (0.3-0.8); Monocytes Percent Auto 11.4 % (1.7-12.0); Neutrophils Absolute Auto 3.4 10^3/uL (1.4-6.5); Neutrophils Percent Auto 50.9 % (43.0-75.0); Platelet Count 241 10^3/uL (150-450); Red Blood Count 5.03 10^6/uL (4.70-6.10); Red Cell Distribution Width 13.5 % (11.0-15.0); White Blood Count 6.8 10^3/uL (4.0-11.0)
[2024-11-14 07:55] LABS: Alanine Aminotransferase 32 U/L (16-63); Albumin Level 3.5 g/dL (3.4-5.0); Alkaline Phosphatase 73 U/L (46-116); Anion Gap 11.5; Aspartate Amino Transferase 23 U/L (15-37); BUN Creatinine Ratio 18.9; Bilirubin Total 0.7 mg/dL (0.2-1.0); Calcium 9.1 mg/dL (8.5-10.1); Carbon Dioxide 30.5 mmol/L (21.0-32.0); Chloride 102 mmol/L (98-107); Chol HDL Ratio 3.8; Cholesterol 193 mg/dL (<=200); Estimated GFR (African America >60 (>=60 mL/min/1.73m^2); Estimated GFR (Non-African Ame >60 (>=60 mL/min/1.73m^2); Globulin 3.4 g/dL; Glucose 96 mg/dL (74-106); HDL Cholesterol 51 mg/dL (40-60); LDL Cholesterol Calculated 119.8 mg/dL; Sodium 140 mmol/L (136-145); Total Protein 6.9 g/dL (6.4-8.2); Triglycerides 111 mg/dL (<=150); VLDL CHOLESTEROL 22.2 mg/dL
[2024-11-14 08:16] LABS: Prostate Specific Antigen Scrn 0.14 ng/mL (<=4.00)
== END 2024-11-14 06:40 | disposition home or self-care (01) ==
LOC: LAB 06:40
PROVIDERS: PCP Internal Medicine; Visit Provider Internal Medicine
DX: Z00.00 Encounter for general adult medical examination without abnormal findings (principal); M31.6 Other giant cell arteritis; M19.90 Unspecified osteoarthritis, unspecified site; Z51.81 Encounter for therapeutic drug level monitoring
CPT/HCPCS: 36415; 80053; 80061; 85025; 85652; 86140; G0103

== ENCOUNTER 2025-01-01 07:26 | Outpatient (OUT) | payer MEDICARE, OTHER, SELFPAY ==
--- OUTSIDE RECORDS SUMMARY | 2025-01-01 07:29 | XMS_ITS | CCD ---
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 Name Role Phone MARTIR HERBERT Primary Care Physician DR MARTIR HERBERT Admitting Unavailable KEON, DR POPE Primary Care Unavailable KEON, DR POPE Consulting Unavailable KEON, DR POPE Attending Unavailable LADAN, DR OSULLIVAN Attending Unavailable KEON, DR POPE Primary Care Unavailable LADAN, DR OSULLIVAN Admitting Unavailable LADAN, DR OSULLIVAN Consulting Unavailable MANGO Herbert Primary Care Provider [phone] MD Abran Ochoa Attending Provider Martir Herbert II Primary Care Provider Keon COBIAN MD, Daniel B Primary Care Provider MANGO Herbert Primary Care Provider MD Juan Jiang Attending Provider [phone] MANGO Herbert Primary Care Provider [phone] MD Armani Kelly Attending Provider Martir Herbert Primary Care Unavailable Juan Jiang Attending Unavailable Juan Jiang Admitting Unavailable Armani Kelly Attending Unavailable Armani Kelly Admitting Unavailable Martir Herbert Primary Care Unavailable Keon COBIAN MD, Daniel B Primary Care Provider [phone] MARTIR HERBERT II Primary Care Unavailable Jc MENDIOLA Attending Unavailable MARTIR HERBERT II Primary Care Unavailable Jc MENDIOLA Attending Unavailable MARTIR HERBERT II Primary Care Unavailable Jc MENDIOLA Attending Unavailable MARTIR HERBERT II Primary Care Unavailable Jc MENDIOLA Attending Unavailable MARTIR HERBERT II Primary Care Unavailable Jc MENDIOLA Attending Unavailable MARTIR HERBERT II Primary Care Unavailable LADAN Abran R Attending Unavailable OCHOA, Abran R Attending Unavailable OCHOA, Abran R Attending Unavailable OCHOA, Abran R Attending Unavailable OCHOA, Abran R Attending Unavailable OCHOA, Abran R Attending Unavailable OCHOA, Abran R Attending Unavailable OCHOA, Abran R Attending Unavailable Martir Herbert MD Unavailable [phone] Martir Herbert MD Primary Care Provider MARTIR HERBERT Attending Unavailable MARTIR HERBERT Attending Unavailable MARTIR HERBERT Attending Unavailable MARTIR HERBERT Attending Unavailable Allergies Allergy Classification Reported Allergen(s) Allergy Type Date of Onset Reaction(s) Facility (10 sources) Penicillin; Translations: [penicillin] Drug Allergy Unknown (qualifier value) [facility] (10 sources) Sulfonamides; Translations: [sulfonamides] Drug allergy Unknown (qualifier value) [facility] (5 sources) Penicillins; Translations: [PENICILLINS] Drug allergy (disorder) 3 Hives [facility] (1 source) Sulfonamides (Antibiotic) Drug allergy (disorder) 3 [facility] (9 sources) Penicillins Drug Allergy 3 [facility] (20 sources) Sulfonamides (Antibiotic); Translations: [SULFA (SULFONAMIDE ANTIBIOTICS)] Drug Allergy 3 [facility] (1 source) Penicillins Drug allergy (disorder) 4 [facility] Rep[facility] (1 source) Sulfonamides (Antibiotic) Drug allergy (disorder) 4 [facility] Rep[facility] (8 sources) Penicillins Drug Allergy 3 Hives, Rash, Unknown [facility] Medications Current Medications Medication Drug Class(es) Dates Sig (Normalized) Sig (Original) acetaminophen 325 mg / HYDROcodone bitartrate 7.5 mg oral tablet (1 source) Opioid Agonist Start: 01-04-2023 take 1 tablet by mouth once, then take 1 tablet by mouth every hour [place] 325 mg-7.5 mg oral tablet 1 tab(s), Oral, Once, 1 tab(s), Refill(s) 0, Take 1 hour prior to procedure, [facility]/pharmacy #[id number], 175, cm, 03/13/23 12:29:00 EDT, Height/Length Dosing, 89, kg, 12/04/22 12:29:00 EDT, Weight Dosing Start Date: 01/04/23 Status: Ordered aspirin 81 mg delayed release oral tablet (20 sources) Platelet Aggregation Inhibitor, Nonsteroidal Anti-inflammatory Drug Start: 05-29-2023 take 1 tablet by mouth in the morning aspirin 81 MG EC tablet Take 81 mg by mouth in the morning. 05/29/2023 Active Comment on above: Take 81 mg by mouth once daily. calcium citrate 950 mg oral tablet (17 sources) calcium citrate (Calcitrate) 950 (200 Ca) MG tablet Take 200 mg by mouth in the morning. Active calcium citrate (CITRACAL ORAL) Take by mouth. Active calcium citrate (CITRACAL ORAL) Take by mouth. 0 Active Comment on above: Take by mouth. cholecalciferol 0.025 mg oral tablet (8 sources) Vitamin D take 1 tablet by mouth in the morning cholecalciferol (Vitamin D-3) 25 MCG (1000 UT) tablet Take 1,000 Units by mouth in the morning. Active cholecalciferol, vitamin D3, (VITAMIN D3 ORAL) (9 sources) cholecalciferol, vitamin D3, (VITAMIN D3 ORAL) Take by mouth. Active cholecalciferol, vitamin D3, (VITAMIN D3 ORAL) Take by mouth. 0 Active Comment on above: Take by mouth. erythromycin 0.005 mg/mg ophthalmic ointment (2 sources) Macrolide, Macrolide Antimicrobial Start: 11-21-19 25 End: 11-29-19 25 erythromycin (Romycin) 5 MG/GM ophthalmic ointment Indications: Blepharitis of upper and lower eyelids of both eyes, unspecified type Apply to affected eye(s) 4 (four) times a day for 7 days Apply Amount per Dose: 0.5 inch (~1 cm) per dose. 3.5 g 1 11/21/2024 11/28/2024 Active furosemide 20 mg oral tablet (10 sources) Loop Diuretic Start: 04-21-20 24 End: 11-21-19 26 take 1 tablet by mouth once daily furosemide (Lasix) 20 MG tablet Indications: Localized edema Take 1 tablet (20 mg) by mouth Daily 90 tablet 3 11/21/2024 11/21/2025 Active Lactobacillus acidophilus (9 sources) Lactobacillus acidophilus [...] (20 sources) Angiotensin Converting Enzyme Inhibitor Start: 11-21-19 take 1 tablet by mouth in the morning lisinopril 10 MG tablet Indications: Benign essential hypertension (CMS/HCC) Take 1 tablet (10 mg) by mouth in the morning. 90 tablet 3 11/21/2024 Active Start: 11-21-2024 take 1 tablet by dot th in the morning lisinopril 10 MG tablet Indications: Benign essential hypertension (CMS/HCC) Take 1 tablet (10 mg) by mouth in the morning. 90 tablet 3 11/21/2024 Active Start: 09-22-2024 End: 11-21-2024 take 1 tablet by mouth in the morning lisinopril 10 MG tablet Indications: Benign essential hypertension (CMS/HCC) TAKE 1 TABLET BY MOUTH IN THE MORNING 90 tablet 3 09/22/2024 11/21/2024 Discontinued (Reorder) Start: 01-05-2023 take 1 tablet by dot th in the morning lisinopril 10 MG tablet Indications: Benign essential hypertension (CMS/HCC) Take 1 tablet (10 mg) by mouth in the morning. 100 tablet 3 11/14/2023 Active Start: 10-28-2019 Co Lisinopril Refills(s) 0 Start Date: 10/28/19 Status: Ordered omega-3 acid ethyl esters (fpc) 1000 mg oral capsule (20 sources) Start: 11-21-2024 take 1 capsule by mouth in the morning omega-3 acid ethyl esters (Lovaza) 1 g capsule Indications: Mixed hyperlipidemia (CMS/HCC) TAKE 1 CAPSULE BY MOUTH IN THE MORNING AND 1 CAPSULE BY MOUTH BEFORE BEDTIME 180 capsule 3 11/21/2024 Active Start: 11-21-2024 take 1 capsule by mo uth in the morning omega-3 acid ethyl esters (Lovaza) 1 g capsule Indications: Mixed hyperlipidemia (CMS/HCC) TAKE 1 CAPSULE BY MOUTH IN THE MORNING AND 1 CAPSULE BY MOUTH BEFORE BEDTIME 180 capsule 3 11/21/2024 Active Start: 09-22-2024 End: 11-21-2024 take 1 capsule by mouth in the morning omega-3 acid ethyl esters (Lovaza) 1 g capsule Indications: Mixed hyperlipidemia (CMS/HCC) TAKE 1 CAPSULE BY MOUTH IN THE MORNING AND 1 CAPSULE BY MOUTH BEFORE BEDTIME 180 capsule 3 09/22/2024 11/21/2024 Discontinued (Reorder) Start: 01-05-2023 take 1 capsule by mo [facility] in the morning omega-3 acid ethyl [...] ement oxybutynin chloride 5 mg oral tablet (11 sources) Cholinergic Muscarinic Antagonist Start: take 1 tablet by mouth at bedtime as needed oxybutynin 5 mg Tab 5 mg = 1 tab(s), Oral, Bedtime, PRN for urinary discomfort, # 30 tab(s), Refills(s) 11, Pharmacy: [facility]/pharmacy #[id number], 175, cm, 12/28/23 8:09:00 EDT, [...] tablet (20 sources) HMG-CoA Reductase Inhibitor Start: 11-21-2024 take 1 tablet by mouth in the morning simvastatin (Zocor) 20 MG tablet Indications: Mixed hyperlipidemia (CMS/HCC) Take 1 tablet (20 mg) by mouth in the morning. 90 tablet 3 11/21/2024 Active Start: 11-21-2024 take 1 tablet by dot th in the morning simvastatin (Zocor) 20 MG tablet Indications: Mixed hyperlipidemia (CMS/HCC) Take 1 tablet (20 mg) by mouth in the morning. 90 tablet 3 11/21/2024 Active Start: 09-22-2024 End: 11-21-2024 take 1 tablet by mouth in the morning simvastatin (Zocor) 20 MG tablet Indications: Mixed hyperlipidemia (CMS/HCC) TAKE 1 TABLET BY MOUTH IN THE MORNING 90 tablet 3 09/22/2024 11/21/2024 Discontinued (Reorder) Start: 01-05-2023 take 1 tablet by dot [...] Start Date: 10/28/19 Status: Ordered Vit D3-Vit K2-Darfur Selman Ext (3 sources) Start: 05-29-2023 take 1 capsule by mouth once daily Vit D3-Vit K2-Darfur Selman Ext Active 25 CAP PO Daily May 29, 2023 12:00am Vitamins A,C,M-Gsbu-Swtgsk (Preservision Areds) 4,296 mcg-226 mg-90 mg capsule (2 sources) Start: 12-18-2023 take 1 capsule by mouth twice daily Vitamins A,C,E-Ezqa-Asbmyq (Preservision Areds) 4,296 mcg-226 mg-90 mg capsule Active 1 CAP PO Twice daily December 18, 2023 12:00am Problems Active Problems Problem Classification Problem Date Documented Da te Episodic/Chronic Administrative/social admission (2 sources) Patient encounter status; Translations: [Other specified counseling] 11-21-2024 Episodic Cancer of prostate (20 sources) Malignant neoplasm of prostate; Translations: [Malignant tumor of prostate] Onset: 02-05-2023 Chronic Cancer; other and unspecified primary (9 sources) H/O Malignant melanoma 10-28-2019 Episodic Disorders of lipid metabolism (14 sources) Mixed hyperlipidemia; Translations: [Mixed hyperlipidemia] Onset: 03-04-2022 Chronic Essential hypertension (10 sources) Benign essential hypertension; Translations: [Essential (primary) hypertension] Onset: 05-28-2023 05-28-2023 Chronic Gastrointestinal hemorrhage (1 source) Rectal hemorrhage; Translations: [Hemorrhage of anus and rectum] 05-03-2023 Episodic Heart valve disorders (8 sources) Nonrheumatic aortic (valve) stenosis; Translations: [Aortic valve disorders] Onset: 12-06-2023 12-06-2023 Chronic Inflammation; infection of eye (except that caused by tuberculosis or sexually transmitteddisease) (2 sources) Blepharitis of upper and lower eyelids of bilateral eyes; Translations: [Unspecified blepharitis right eye, upper and lower eyelids] 11-21-2024 Episodic Osteoarthritis (8 sources) Osteoarthritis of joint of right hand; Translations: [Primary osteoarthritis, right hand] Onset: 11-12-2023 11-12-2023 Chronic Other gastrointestinal disorders (1 source) Constipation; Translations: [Constipation, unspecified] 05-03-2023 Episodic Residual codes; unclassified (2 sources) Localized edema; Translations: [Localized edema] 11-21-2024 Episodic Systemic lupus erythematosus and connective tissue disorders (13 sources) Temporal arteritis; 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] Onset: 12-19-2023 12-18-2023 Chronic Unclassified (1 source) Encounter for screening for malignant neoplasm of colon; Translations: [Encounter for screening for malignant neoplasm of colon] Onset: 05-29-2023 Past or Other Problems Problem Classification Problem Date Documented Da te Episodic/Chronic Abdominal hernia (8 sources) Left inguinal hernia ; Translations: [Unilateral [...] 11-14-2023 10-28-2019 Chronic Other male genital disorders (8 sources) Dysplasia of prostate; 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] Onset: 06-15-2005 Resolved: 11-14-2023 11-14-2023 Episodic Other nutritional; endocrine; and metabolic disorders (17 sources) Body mass index 25-29 - overweight; Translations: [Overweight] Onset: 11-12-2023 09-01-2020 Episodic Other screening for suspected conditions (not mental disorders or infectious disease) (20 sources) Raised prostate specific antigen; Translations: [Elevated prostate specific antigen [PSA]] Onset: 10-17-2022 09-01-2020 Episodic Other skin disorders (8 sources) Chronic folliculitis; Translations: [Follicular disorder, unspecified] Onset: 11-12-2023 11-12-2023 Episodic Results Test Name Value Interpretation Reference Range Facility ALL CBC WITH AUTO DIFFon BASOPHILS ABSOLUTE AUTO 0.1 [facility] Basophils/100 WBC (Bld) 0.7 % 0.2 - 2.0 % [facility] Eosinophils/100 WBC (Bld) 4 % 0.9 - 7.0 % [facility] Erythrocyte distribution width (RBC) [Ratio] 13.5 % 11.0 - 15.0 % [facility] Hematocrit (Bld) [Volume fraction] 45.9 % 42.0 - 54.0 % [facility] Hemoglobin (Bld) [Mass/Vol] 15.3 g/dL 14.0 - 18.0 g/dL [facility] IMMATURE GRANULOCYTES ABS AUTO 0.01 [facility] Immature granulocytes/100 WBC (Bld) 0.1 % 0.0 - 0.5 % [facility] Interpretation and review of laboratory results Abnormal [facility] LYMPHOCYTES ABSOLUTE AUTO 2.2 [facility] Lymphocytes/100 WBC (Bld) 32.9 % 20.5 - 60.0 % [facility] MCH (RBC) [Entitic mass] 30.4 pg 25.9 - 34.0 pg [facility] MCHC (RBC) [Mass/Vol] 33.3 g/dL 29.9 - 35.2 g/dL [facility] MCV (RBC) [Entitic vol] 91.3 fL 80.0 - 94.0 fL [facility] MONOCYTES ABSOLUTE AUTO 0.8 [facility] Monocytes/100 WBC (Bld) 11.4 % 1.7 - 12.0 % [facility] NEUTROPHILS ABSOLUTE AUTO 3.4 [facility] Neutrophils/100 WBC (Bld) 50.9 % 43.0 - 75.0 % [facility] Platelet mean volume (Bld) [Entitic vol] 9.2 fL Low 9.5 - 13.5 fL [facility] TBH EO # 0.3 [facility] TBH PLT [address] [facility] RBC 5.03 [facility] TB WBC 6.8 [facility] ALL C REACTIVE PROTEINon CRP [Mass/Vol] mg/L NINF - 0.50 mg/dL [facility] ALL SED RATEon 09-25-2024 [facility] No [facility]14[facility]2024 Interpretation and review of laboratory results [facility]on 07-04-2024 Urology Office/Clinic [...] [facility] [address], [place] [address]- Additional Instructions: 1 yr with PSA from [...] virus vaccine, inactivated 08/13/2022 Recorded SARS-CoV-2 (COVID-19) [id number] 08/13/2022 Recorded zoster vaccine, inactivated 12/18/2021 Recorded zoster vaccine, inactivated 09/21/2021 Recorded diphtheria/pertussis, acel/tetanus adult 09/19/2021 Recorded influenza (more content not included)... Normal [facility] Comment on above: Result Comment: Elec tronically Signed By: LADAN EDWARDS, Abran Darling\.br\Date and Time Signed: 07/04/24 10:24 EDT\.br\Electronically Co-Signed By: Debi Vidal\.br\Date and Time Co-Signed: 07/04/24 10:22 EDT MHPT PSA, DIAGNOSTICon 07-01 PROSTATE SPECIFIC ANTIGEN DX 0.30 ng/mL NINF - 4.00 ng/mL [facility] ALL SED RATEon 05-27-2024 TBH SED RATE 9 NINF [facility] CNOVon 04-10-2024 CNOV Office Visit (RADTSA ) JOSE CAN ([id number]) 1940 M Date Time Provider Department 04/10/24 [...] Mendiola MD cc: Martir Herbert II, MD [address] [place] [address] Dr. Ochoa Allergies As of Date: 04/10/2024 Noted Allergy Reaction PENICILLINS 02/16/2023 2 - Rash SULFA (SULFONAMIDE ANTIBIOTICS) 02/16/2023 2 - Rash Date Reviewed: 04/10/2024 Reviewed by: Nichelle Elkins RN - Fully Assessed Primary Visit Diagnosis:Malignant neoplasm of prostate (HCC) [C61] Order(s):PSA (OUTSIDE) [[id number]] Order #: [id number] Prescriptions as of 04/14/2024 - predniSONE (DELTASONE) [...] 10/11/2023 Visit Notes: >> Nichelle Elkins RN [facility] Apr 10, 2024 9:32 AM Status: Signed AUA 4 Nichelle Elkins RN Disposition: Return in about 1 year (around 04/10/2025). Follow-up and Disposition History for Encounter Date Provider Department Center 04/10/2024 [id number] MENDIOLA DEVIN Bautista Encounter Status:Closed by Jc MENDIOLA on 04/14/24 Normal [facility] Patient Educationon 12-28-19 Patient Education Urology [...] Follow these instructions at home: ? Take upom-ycx-cphpwbe and prescription medicines only as told by [...] the medicine (more content not included)... Normal [facility] Urology Office/Clinic Noteon 12-28-2023 Urology Office/Clinic Note [...] (7 mm x 4mm) TRUS/bx 01/16/23 - [place] 7 (3+4) GG2. cT2a, N0, M0, stage [...] IO s/p brachytherapy. Pt then presented to [facility] ER due to inability to urinate after catheter removal. Bladder scan was >500mL. Dc'd home with Mendoza catheter in place. Came to our office 09/21/23 for catheter removal per approval of PRW. No issues with urination after Mendoza was removed. See #2. Follow-up With When Contact Information Abran OCHOA MD, URL [address] [place] [address]- Additional Instructions: 6 mos w/ PSA Patient [...] Medications Co (more content not included)... Normal [facility] Comment on above: Result Comment: Elec tronically Signed By: Abran OCHOA MD\.br\Date and Time Signed: 12/28/23 08:53 EDT\.br\Electronically Co-Signed By: Agata Durant\.br\Date and Time Co-Signed: 12/28/23 08:52 EDT Lab Reportson 12-24-2023 Lab Reports [id number] Normal [facility] PSA (OUTSIDE)on 12-24-2023 [facility] Anisocytosis LM Ql (Bld)Orde red By: Arden Marin on 12-19-2023 Anisocytosis Ql (Bld) Slight Fir [facility] Basic Metabolic Panelon 11-23 Anion gap [Moles/Vol] 9.1 mmol/L Normal 6.0-15.0 [facility] Comment on above: Performed By: #### S CAN CBC, BMP #### [facility] [address] [place] [address] [place] Calcium [Mass/Vol] 8.5 mg/dL Low 8.6-10.3 [facility] Comment on above: Performed By: #### S CAN CBC, BMP #### [facility] [address] [place] [address] [place] Chloride [Moles/Vol] 103 mmol/L Normal 98-107 [facility] Comment on above: Performed By: #### S CAN CBC, BMP #### [facility] [address] CO2 [Moles/Vol] 26.0 mmol/L Normal 21.0-31.0 [facility] Comment on above: Performed By: #### S CAN CBC, BMP #### [facility] [address] [place] [address] [place] Creatinine [Mass/Vol] 0.74 mg/dL Normal 0.70-1.30 [facility] Comment on above: Performed By: #### S CAN CBC, BMP #### [facility] [address] [place] [address] [place] Creatinine Clr Calc Pharmacy 78.34 Normal [facility] Comment on above: Result Comment: PERF ORMED BY: [place] [address] PATHOLOGIST THREAD PULLING MACHINE ATTENDANT CAREN DALEY M.D. Performed By: #### S CAN CBC, BMP #### [place] [address] [place] GFR/1.73 sq M.predicted MDRD (S/P/Bld) [Vol rate/Area] mL/min/{1.73_m2} Normal [facility] Comment on above: Performed By: #### S CAN CBC, BMP #### [facility] [address] Glucose [Mass/Vol] 88 mg/dL Normal 70-100 [facility] Comment on above: Result Comment: [facility] Glucose Reference Range is dependent on time and content of last meal. Glucose of more than 200 mg/dL in a nonstressed, ambulatory subject supports the diagnosis of Diabetes Mellitus. ADA recommended reference range Performed By: #### S CAN CBC, BMP #### [facility] [address] Potassium [Moles/Vol] 4.1 mmol/L Normal 3.5-5.1 [facility] Comment on above: Performed By: #### S CAN CBC, BMP #### [facility] [address] Sodium [Moles/Vol] 134 mmol/L Low 136-145 [facility] Comment on above: Performed By: #### S CAN CBC, BMP #### [facility] [address] Urea nitrogen [Mass/Vol] 23 mg/dL Normal 7-25 [facility] Comment on above: Performed By: #### S CAN CBC, BMP #### [facility] [address] Basophils Auto (Bld) [#/Vol] Ordered By: Arden Marin on 12-19-2023 Basophils (Bld) [#/Vol] 0.1 10*3/uL 0.0-0.2 [facility] Basophils/100 WBC Auto (Bld) Ordered By: Arden Marin on 12-19-2023 Basophils/100 WBC (Bld) 0.4 % . [facility] Calcium [Mass/volume] in Ser um or PlasmaOrdered By: Arden Marin on 12-19-2023 Calcium [Mass/Vol] 8.5 mg/dL 8.6-10.3 [facility] Carbon dioxide, total [Moles /volume] in Serum or PlasmaOrdered By: Arden Marin on 12-19-2023 CO2 [Moles/Vol] 26.0 mmol/L 21.0-31.0 [facility] Chloride [Moles/volume] in S jerry or PlasmaOrdered By: Arden Marin on 12-19-2023 Chloride [Moles/Vol] 103 mmol/L 98-107 [facility] Creatinine [Mass/volume] in Serum or PlasmaOrdered By: Arden Marin on 12-19-2023 Creatinine [Mass/Vol] 0.74 mg/dL 0.70-1.30 [facility] ECG 12 lead ECGon 12-19-2023 ECG 12 lead ECG [facility] [place] [address] Electrocardiograph Report Signed Patient: Jose Can MR#: [id number] : 1940 Acct:[id number] Age/Sex: 83 / M ADM Date: 12/19/23 Loc: [place] Room: Type: [facility] Attending Dr: Armani Kelly MD Ordering Provider: [...] previous ECGs available Confirmed by CAROLA EDWARDS [id number] on 12/19/2023 6:51:43 AM Referred By: Electronically Signed By:ABRAN SRIVASTAVA MD [facility] Transcribed By: MUS Signed By Pal Srivastava MD 12/19/23 0651 Normal [facility] Eosinophils Auto (Bld) [#/Vo l]Ordered By: Arden Marin on 12-19-2023 Eosinophils (Bld) [#/Vol] 0.1 10*3/uL 0.0-0.45 [facility] Eosinophils/100 WBC Auto (Bl d)Ordered By: Arden Marin on 12-19-2023 Eosinophils/100 WBC (Bld) 0.3 % . [facility] Erythrocyte distribution wid th Auto (RBC) [Ratio]Ordered By: Arden Marin on 12-19-2023 Erythrocyte distribution width (RBC) [Ratio] 13.9 % 12.0-14.8 [facility] Glucose [Mass/volume] in Ser um or PlasmaOrdered By: Arden Marin on 12-19-2023 Glucose [Mass/Vol] 88 mg/dL 70-100 [facility] Comment on above: ADA recommended refe rence rangeRandom Glucose Reference Range is dependent on time and content of last meal. Glucose of more than 200 mg/dL in a nonstressed, ambulatory subject supports the diagnosis of Diabetes Mellitus. Hematocrit Auto (Bld) [Volum e fraction]Ordered By: Arden Marin on 12-19-2023 Hematocrit (Bld) [Volume fraction] 40.8 % 38.8-50.0 [facility] Hemoglobin [Mass/volume] in BloodOrdered By: Arden Marin on 12-19-2023 Hemoglobin (Bld) [Mass/Vol] 13.4 g/dL 13.0-17.0 [facility] Isaías 12-19-2023 L Specimen: Received: 12/19/23 Status: RANDI Capellan Num: [id number] Spec Type: Surgical Subm Dr: Armani Kelly MD Tissues: A Artery Temporal- Biopsy (RT TEMPORAL ARTERY BX) Procedures: Trichrome/2, CD45/2, HE/20, Gross/Micro L4, CD20/2, CD3/2, CD68/2 Age/ Patient Sex Location Account Attending Physician Jose Can 83/M [place] [id number] Armani Kelly MD SPEC NUM: [id number] RECD: 12/19/23 STATUS: RANDI CAPELLAN NUM: [id number] FAIZAN: 12/19/[address] [facility] [address]: Armani Kelly MD ENTERED: 12/19/23 [facility] DR: SPEC TYPE: Surgical DEPT: S ORDERED: [...] Clinical Information Right temporal arteritis -------- Specimen: [id number] Received: 12/19/23 Status: RANDI Marilia Num: [id number] Spec Type: Surgical Subm Dr: Armani Kelly MD Tissues: A Artery Temporal- Biopsy (RT TEMPORAL ARTERY BX) Procedures: Trichrome/2, CD45/2, HE/20, Gross/Micro L4, CD20/2, CD3/2, CD68/2 -------- Patient: Jose Can [id number] (Continued) -------- Specimen: [id number] Received: 12/19/23 (Continued) Signed (signature on file) Mee Bush MD 12/21/231838 -------- Specimen: [id number] Received: 12/19/23 Status: RANDI Capellan Num: [id number] Spec Type: Surgical Subm Dr: Armani Kelly MD Tissues: A Artery Temporal- Biopsy (RT TEMPORAL ARTERY BX) Procedures: Trichrome/2, CD45/2, HE/20, Gross/Micro L4, CD20/2, CD3/2, CD68/2 -------- Patient: Jose Can [id number] (Continued) -------- Specimen: [id number] Received: 12/19/23 (Continued) Gross Description Received fresh labeled with the patient's name, date of and temporal artery biopsy right is a 7.8 x 0.3 cm cabrera-pink tubular tissue with attached silver metal clips. Sectioning reveals a patent lumen. Entirely submitted in two cassettes labeled A1-A2. CPT Codes 10717 05238, 24795a7 70375 -------- -------- Specimen: [id number] Received: 12/19/23 Status: RANDI Marilia Num: [id number] Spec Type: Surgical Subm Dr: Armani Kelly MD Tissues: A Artery Temporal- Biopsy (RT TEMPORAL ARTERY BX) Procedures: Trichrome/2, CD45/2, HE/20, Gross/Micro L4, CD20/2, CD3/2, CD68/2 -------- Patient: Jose Can [id number] (Continued) -------- Signed (signature on file) Mee Bush MD 12/21/23 1839 Normal [facility] Leukocytes [#/volume] correc claudia for nucleated erythrocytes in Blood by Automated counOrdered By: Arden Marin on 12-19-2023 WBC corrected for nucl RBC Auto (Bld) [#/Vol] 16.2 10*3/uL 4.1-10.5 [facility] Lymphocytes Auto (Bld) [#/Vo l]Ordered By: Arden Marin on 12-19-2023 Lymphocytes (Bld) [#/Vol] 2.9 10*3/uL 1.00-4.8 [facility] Lymphocytes/100 WBC Auto (Bl d)Ordered By: Arden Marin on 12-19-2023 Lymphocytes/100 WBC (Bld) 17.7 % . [facility] MCH Auto (RBC) [Entitic mass ]Ordered By: Arden Marin on 12-19-2023 MCH (RBC) [Entitic mass] 28.9 pg 27.5-35.2 [facility] MCHC Auto (RBC) [Mass/Vol]Or dered By: Arden Marin on 12-19-2023 MCHC (RBC) [Mass/Vol] 32.8 g/dL 32.5-35.6 [facility] MCV Auto (RBC) [Entitic vol] Ordered By: Arden Marin on 12-19-2023 MCV (RBC) [Entitic vol] 88.0 fL 83.5-101 [facility] Microcytes LM Ql (Bld)Ordere d By: Arden Marin on 12-19-2023 Microcytes Ql (Bld) Slight [facility] Monocytes Auto (Bld) [#/Vol] Ordered By: Arden Marin on 12-19-2023 Monocytes (Bld) [#/Vol] 1.3 10*3/uL 0.0-0.8 [facility] Monocytes/100 WBC Auto (Bld) Ordered By: Arden Marin on 12-19-2023 Monocytes/100 WBC (Bld) 8.3 % . [facility] Neutrophils Auto (Bld) [#/Vo l]Ordered By: Arden Marin on 12-19-2023 Neutrophils (Bld) [#/Vol] 11.9 10*3/uL 1.8-7.7 [facility] Neutrophils/100 WBC Auto (Bl d)Ordered By: Arden Marin on 12-19-2023 Neutrophils/100 WBC (Bld) 73.3 % . [facility] No Panel InformationOrdered By: Arden Marin on 12-19-2023 Estimated GFR (CKD-EPI) > 60.0 mL/Min [facility]acy Creatinine Clearance (Chem 78.34 [facility] Nucleated erythrocytes [Pres ence] in Blood by Automated countOrdered By: Arden Marin on 12-19-2023 Nucleated RBC Auto Ql (Bld) 0.1 /100{WBC} 0-0.5 [facility] Ovalocyte detectionOrdered B y: Arden Marin on 12-19-2023 Ovalocytes LM Ql (Bld) Slight Fi [facility]Former[facility] Platelet adequacy [Presence] in Blood by Light microscopyOrdered By: Arden Marin on 12-19-2023 Platelets LM Ql (Bld) Normal Normal [facility] Platelet mean volume Auto (B ld) [Entitic vol]Ordered By: Arden Marin on 12-19-2023 Platelet mean volume (Bld) [Entitic vol] 7.4 fL 6.6-10.1 [facility] Platelet morphology finding [Identifier] in BloodOrdered By: Arden Marin on 12-19-2023 Platelet morphology finding Nom (Bld) Normal Normal [facility] Platelets Auto (Bld) [#/Vol] Ordered By: Arden Marin on 12-19-2023 Platelets (Bld) [#/Vol] 364 10*3/uL 150-450 [facility] Platelets Large [Presence] i n Blood by Light microscopyOrdered By: Arden Marin on 12-19-2023 Platelets Large LM Ql (Bld) Slight [facility] Poikilocytosis [Presence] in Blood by Light microscopyOrdered By: Arden Marin on 12-19-2023 Poikilocytosis LM Ql (Bld) Slight [facility] Potassium [Moles/volume] in Serum or PlasmaOrdered By: Arden Marin on 12-19-2023 Potassium [Moles/Vol] 4.1 mmol/L 3.5-5.1 [facility] RBC Auto (Bld) [#/Vol]Ordere d By: Arden Marin on 12-19-2023 RBC (Bld) [#/Vol] 4.64 10*6/uL 3.90-5.60 [facility] RBC morphologyOrdered By: Kylah Marin on 12-19-2023 RBC morphology finding Nom (Bld) N/A [facility] Scan and CBCon 12-19-2023 Anisocytosis Ql (Bld) Slight Normal [facility] Comment on above: Performed By: #### S CAN CBC, BMP #### [facility] [address] [place] [address] [place] Basophils (Bld) [#/Vol] 0.1 10*3/uL Normal 0.0-0.2 [facility] Comment on above: Performed By: #### S CAN CBC, BMP #### [facility] [address] [place] [address] [place] Basophils/100 WBC (Bld) 0.4 % Normal . [facility] Comment on above: Performed By: #### S CAN CBC, BMP #### [facility] [address] [place] [address] [place] Eosinophils (Bld) [#/Vol] 0.1 10*3/uL Normal 0.0-0.45 [facility] Comment on above: Performed By: #### S CAN CBC, BMP #### [facility] [address] [place] [address] [place] Eosinophils/100 WBC (Bld) 0.3 % Normal . [facility] Comment on above: Performed By: #### S CAN CBC, BMP #### [facility] [address] [place] [address] [place] Erythrocyte distribution width (RBC) [Ratio] 13.9 % Normal 12.0-14.8 [facility] Comment on above: Performed By: #### S CAN CBC, BMP #### [address] Hematocrit (Bld) [Volume fraction] 40.8 % Normal 38.8-50.0 [facility] Comment on above: Performed By: #### S CAN CBC, BMP #### [address] Hemoglobin (Bld) [Mass/Vol] 13.4 g/dL Normal 13.0-17.0 [facility] Comment on above: Performed By: #### S CAN CBC, BMP #### [address] Large Platelets Slight Normal [facility] Comment on above: Result Comment: PERF ORMED BY: [place] [address] PATHOLOGIST THREAD PULLING MACHINE ATTENDANT CAREN DALEY M.D. Performed By: #### S CAN CBC, BMP #### [address] Lymphocytes (Bld) [#/Vol] 2.9 10*3/uL Normal 1.00-4.8 [facility] Comment on above: Performed By: #### S CAN CBC, BMP #### [address] Lymphocytes/100 WBC (Bld) 17.7 % Normal . [facility] Comment on above: Performed By: #### S CAN CBC, BMP #### [address] MCH (RBC) [Entitic mass] 28.9 pg Normal 27.5-35.2 [facility] Comment on above: Performed By: #### S CAN CBC, BMP #### [address] MCV (RBC) [Entitic vol] 88.0 fL Normal 83.5-101 [facility] Comment on above: Performed By: #### S CAN CBC, BMP #### [address] Mean Corpuscular HGB Conc 32.8 g/dL Normal 32.5-35.6 [facility] Comment on above: Performed By: #### S CAN CBC, BMP #### [address] Microcytosis Slight Normal [facility] Comment on above: Performed By: #### S CAN CBC, BMP #### [place] [address] [place] Monocytes (Bld) [#/Vol] 1.3 10*3/uL High 0.0-0.8 [facility] Comment on above: Performed By: #### S CAN CBC, BMP #### [address] Monocytes/100 WBC (Bld) 8.3 % Normal . [facility] Comment on above: Performed By: #### S CAN CBC, BMP #### [place] [address] [place] Neutrophils (Bld) [#/Vol] 11.9 10*3/uL High 1.8-7.7 [facility] Comment on above: Performed By: #### S CAN CBC, BMP #### [place] [address] [place] Neutrophils/100 WBC (Bld) 73.3 % Normal . [facility] Comment on above: Performed By: #### S CAN CBC, BMP #### [place] [address] [place] NRBC% 0.1 /100{WBC} Normal 0-0.5 [facility] Comment on above: Performed By: #### S CAN CBC, BMP #### [address] Ovalocytes Slight Normal [facility] Comment on above: Performed By: #### S CAN CBC, BMP #### [place] [address] [place] Platelet Estimate Normal Normal Normal [facility] Comment on above: Performed By: #### S CAN CBC, BMP #### [facility] [address] Platelet mean volume (Bld) [Entitic vol] 7.4 fL Normal 6.6-10.1 [facility] Comment on above: Performed By: #### S CAN CBC, BMP #### [facility] [address] Platelet Morphology Normal Normal Normal [facility] Comment on above: Performed By: #### S CAN CBC, BMP #### [facility] [address] [place] [address] [place] Platelets (Bld) [#/Vol] 364 10*3/uL Normal 150-450 [facility] Comment on above: Performed By: #### S CAN CBC, BMP #### [address] Poikilocytosis Slight Normal [facility] Comment on above: Performed By: #### S CAN CBC, BMP #### [address] RBC (Bld) [#/Vol] 4.64 10*6/uL Normal 3.90-5.60 [facility] Comment on above: Performed By: #### S CAN CBC, BMP #### [address] WBC (Bld) [#/Vol] 16.2 10*3/uL High 4.1-10.5 [facility] Comment on above: Performed By: #### S CAN CBC, BMP #### [facility] [address] Serum or plasma anion gap de terminationOrdered By: Arden Marin on 12-19-2023 Anion gap [Moles/Vol] 9.1 mmol/L 6.0-15.0 [facility] Sodium [Moles/volume] in Ser um or PlasmaOrdered By: Arden Marin on 12-19-2023 Sodium [Moles/Vol] 134 mmol/L 136-145 [facility] Urea nitrogen [Mass/volume] in Serum or PlasmaOrdered By: Arden Tomas on 12-19-2023 Urea nitrogen [Mass/Vol] 23 mg/dL 7- [facility] WBC Auto (Bld) [#/Vol]Ordere d By: Arden Tomas on 12-19-2023 WBC (Bld) [#/Vol] 16.2 10*3/uL 4.1-10.5 [facility] Consultation Noteon 10-12-19 Consultation Note [id number]#1. 00TIFF Normal [facility] CNOVon 10-11-2023 CNOV Office Visit (RADTSA ) JOSE CAN ([id number]) 1940 M Date Time Provider Department 10/11/23 [...] Mendiola MD cc: Martir Herbert II, MD [address] [place] [address] Debra Anthony LPN 10/11/2023 9:38 AM Signed AUA= 5 Allergies As of Date: 10/11/2023 Noted Allergy Reaction PENICILLINS 02/16/2023 2 - Rash SULFA (SULFONAMIDE ANTIBIOTICS) 02/16/2023 2 - Rash Date Reviewed: 09/19/2023 Reviewed by: Debra Quinn LPN - Fully Assessed Primary Visit Diagnosis:Malignant neoplasm of prostate (HCC) [C61] Order(s):PSA (OUTSIDE) [9140766] Order #: [id number] PSA/PROSTSPECAG DIAG [SQPSA] Order #: [id number] FUTURE Prescriptions as of 10/11/2023 - simvastatin [...] for Encounter Date Provider Department Center 10/11/2023 [id number] [facility] Encounter Status:Closed by Jc MENDIOLA on 10/11/23 Normal [facility] Consultation Noteon 10-09-19 Consultation Note [id number]# 1.00TIFF [facility] ED Note-Physicianon 10-09-19 ED Note-Physician [id number]#1. 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 Take pthe-uki-hhinfsl or prescription medicines. ? Eat foods that are high in fiber, such as beans, whole grains, and fresh fruits and vegetables. ? Limit foods that are high in fat and processed sugars, such as fried or sweet foods. General instructions ? Take wajq-vql-atsmsld and prescription medicines only as told by [...] away if: (more content not included)... Normal [facility] Urology Office/Clinic Noteon 10-08-2023 Urology Office/Clinic Note [...] 09/12/23 in our office. Then presented to [facility] ER due to inability to urinate [...] (7 mm x 4mm). TRUS/bx 01/16/23 - [place] 6 (3+3) in 4 cores and Alpa [...] our office after brachytherapy. Then presented to [facility] ER due to inability to urinate after catheter removal. Bladder scan was >500mL. Dc'd home with Mendoza catheter in place. Came to our office 09/21/23 for catheter removal per approval of PRW. Reports he has not had any issues urinating since. Follow-up With When Contact Information LADAN EDWARDS, Abran Darling, URL [facility] [address], [place] [address] [phone] Additional Instructions: 3 mos w/ PSA Patient Education Brachytherapy for Prostate Cancer, Care After I, iMchaela Herbert, personally scribed for Dr. Ochoa on [...] hernia rep (more content not included)... Normal [facility] Comment on above: Result Comment: Elec tronically [...] Abran Darling Where: [facility] Normal [address] [place] [address] [place] [address]- \.br\ Medications\.b r\ What When Instructions\. br\ [...] for choosing us for your care.\.br\ \.br\ [facility] CNOVon 09-19-2023 CNOV Office Visit (RADTSA ) JOSE CAN ([id number]) 1940 M Date Time Provider Department 09/19/23 [...] Mendiola MD cc: Martir Herbert II, MD [address] [place] [address] No referring provider defined for this encounter. Allergies As of Date: 09/19/2023 Noted Allergy Reaction PENICILLINS 02/16/2023 2 - Rash SULFA (SULFONAMIDE ANTIBIOTICS) 02/16/2023 2 - Rash Date Reviewed: 09/19/2023 Reviewed by: Debra Quinn LPN - Fully Assessed Reason for Visit: Prostate Cancer [590] Primary Visit Diagnosis:Malignant neoplasm of prostate (HCC) [C61] Order(s):PSA/PROSTSPE CAG DIAG [SQPSA] Order #: [id number] FUTURE Prescriptions as of 09/19/2023 - simvastatin [...] for Encounter Date Provider Department Center 09/19/2023 [id number] MENDIOLA Encounter Status:Closed by Jc MENDIOLA on 09/19/23 [facility] Ambulatory Visit Summaryon 1 11-13-2022 Ambulatory [...] EDWARDS, Abran Darling Where: [facility] [address] [place] [address] \.br\ Medications\.b r\ What When Instructions\. br\ [...] for choosing us for your care.\.br\ \.br\ [facility] Lab Reportson 09-07-2023 Lab Reports [id number]#1 .00TIFF Normal [facility] Operative Reporton 3 Operative Report [id number]#1 .00TIFF Normal [facility] RAD - MISCon 09-07-2023 RAD - MISC [id number]#1 .00TIFF Normal [facility] CNOVon 09-06-2023 CNOV Office Visit (RADTSA ) JOSE CAN ([id number]) 1940 Date Time Provider Department 09/06/23 9:00 AM Jc MENDIOLA During your visit today, we recorded the following information about you: Jc Mendiola MD 09/06/2023 3:18 PM Signed Date: 09/06/23 Facility: [facility] Procedure: prostate transperineal brachytherapy implant Diagnosis: [...] activity seen, results documented. Edilma Mendiola MD [facility] Allergies As of Date: 09/06/2023 Noted [...] Encounter Status:Closed by Jc MENDIOLA on 09/06/23 [facility] Consultation Noteon 08-10-20 Consultation Note [id number]#1 .00TIFF [facility]SE [facility] ([id number]) 1940 M Date Time Provider Department 07/24/23 Jc MENDIOLAA During your visit today, we recorded the following information about you: Debra Quinn, GABO 07/24/2023 10:01 AM Signed Christina with Dr. [...] Status:Closed by DEBRA QUINN on 07/25/23 Normal [facility] ECG 12-Leadon 07-24-2023 ECG 12-Lead [id number]#1 .00TIFF [facility] Formson 07-24-2023 Forms [id number]#1 .00TIFF Normal [facility] ECG 12-Leadon 07-20-2023 ECG 12-Lead [id number]#1 .00TIFF Normal [facility] Lab Reportson 07-20-2023 Lab Reports [id number]#1. 00TIFF Normal [facility] Lab Reports [id number] 0 [id number] #1.00TIFF Normal [facility] Lab Reports [id number]#1. 00TIFF Normal [facility] RAD - MISCon 07-20-2023 RAD - MISC [id number]#1. 00TIFF Normal [facility] CNOVon 07-11-2023 CNOV Office Visit (RADTSA ) JOSE CAN ([id number]) 1940 M Date Time Provider Department 07/11/23 [...] Encounter Status:Closed by Jc MENDIOLA on 07/12/23 [facility] 06-04-2023 [facility] Telephone (STACYA) JOSE CAN ([id number]) 1940 M Date Time Provider Department 06/04/23 [...] Encounter Status:Closed by NICHELLE ELKINS on 06/04/23 [facility] 05-29-2023 L - -------- Specimen: [id number] Received: 05/29/23 Status: RANDI Capellan Num: [id number] Spec Type: Surgical Subm Dr: Juan Jiang MD Tissues: A Colon Biopsy (ASCENDING POLYP) Procedures: HE/2, Gross/Micro L4 -------- Age/ Patient Sex Location Account Attending Physician -------- Jose Can /[facility] [id number] Juan Jiang MD -------- SPEC NUM: [id number] RECD: 05/29/23 STATUS: RANDI CAPELLAN NUM: [id number] FAIZAN: 05/29/23 DR: Juan Jiang MD ENTERED: 05/29/23 [facility] DR: IRVIN TYPE: Surgical DEPT: S ORDERED: [...] microscopic examination confirms the diagnosis. CPT Codes 24126 -------- -------- Specimen: [id number] Received: 05/29/23 Status: RANDI Capellan Num: [id number] Spec Type: Surgical Subm Dr: Juan Jiang MD Tissues: A Colon Biopsy (ASCENDING POLYP) Procedures: HE/2, Gross/Micro L4 -------- Patient: Jose Can [id number] (Continued) -------- Signed (signature on file) Kashmir Linares MD 05/31/23 4178 Normal [facility] Rebecca 05-02-2023 CNPN Telephone (RADErrplaneA) JOSE CAN ([id number]) 1940 M Date Time Provider Department 05/02/23 [...] colonoscopy was done per Dr Franco at [facility] in 2015. It was normal. Dr Mendiola-- please advise. [...] Status:Closed by NICHELLE ELKINS on 05/29/23 Normal [facility] Creatinine (Bld) [Mass/Vol]O rdered By: Abran Ochoa on 12-19-2022 Creatinine [Mass/Vol] 0.9 mg/dL 0.6-1.3 [facility] Comment on above: ER/ESD physician is notified/shown all ISTAT results.Critical values may be confirmed by laboratory testing ifdeemed necessary by ER attending doctor. PSA, FREE AND TOTAL RATIOon 10-18-2022 % Free PSA 21.9 % Normal [facility] Comment on above: Result Comment: The table [...] men. Performed By: #### P SAFREE #### [facility] [address] [place] [address] Dr. Deisi Bush Prostate specific Ag [Mass/Vol] 3.1 ng/mL Normal 0.0-4.0 [facility] Comment on above: Result Comment: Cris PRAJAPATI methodology. . According to the [place] [employer], Serum PSA should decrease and [...] disease. Performed By: #### P SAFREE #### [facility] [address] [place] [address] Dr. Deisi Bush PSA, Free 0.68 ng/mL Normal N/A [facility] Comment on above: Result Comment: Cris PRAJAPATI methodology. Performed By: #### P SAFREE #### [facility] [address] [place] [address] Dr. Deisi Bush CBC AUTO DIFFon 03-04-2022 BASO # 0.0 103/ul Normal 0.0-0.1 [facility] Comment on above: Performed By: #### C BC #### [facility] [address] [place] [address] Dr. Deisi Bush Basophils/100 WBC (Bld) 0.6 % Normal 0.2-2.0 [facility] Comment on above: Performed By: #### C BC #### [facility] [address] [place] [address] Dr. Deisi Bush EO # 0.5 103/ul Normal 0.0-0.7 [facility] Comment on above: Performed By: #### C BC #### [facility] [address] [place] [address] Dr. Deisi Bush Eosinophils/100 WBC (Bld) 10.2 % Critically high 0.9-7.0 [facility] Comment on above: Performed By: #### C BC #### [facility] [address] [place] [address] Dr. Deisi Bush Erythrocyte distribution width (RBC) [Ratio] 13.4 % Normal 11.0-15.0 [facility] Comment on above: Performed By: #### C BC #### [facility] [address] [place] [address] Dr. Deisi Bush Hematocrit (Bld) [Volume fraction] 42.3 % Normal 42.0-54.0 [facility] Comment on above: Performed By: #### C BC #### [facility] [address] [place] [address] Dr. Deisi Bush Hemoglobin (Bld) [Mass/Vol] 14.1 g/dL Normal 14.0-18.0 [facility] Comment on above: Performed By: #### C BC #### [facility] [address] [place] [address] Dr. Deisi Bush IG # 0.01 10e3/ul Normal 0.00-0.03 [facility] Comment on above: Performed By: #### C BC #### [facility] [address] [place] [address] Dr. Deisi Bush IG % 0.2 % Normal 0.0-0.5 [facility] Comment on above: Performed By: #### C BC #### [facility] [address] [place] [address] Dr. Deisi Bush LYMPH # 2.4 103/ul Normal 1.2-3.8 [facility] Comment on above: Performed By: #### C BC #### [facility] [address] [place] [address] Dr. Deisi Bush Lymphocytes/100 WBC (Bld) 46.5 % Normal 20.5-60.0 [facility] Comment on above: Performed By: #### C BC #### [facility] [address] [place] [address] Dr. Deisi Bush MANUAL DIFF REQ NO Normal [facility] Comment on above: Performed By: #### C BC #### [facility] [address] [address] [address] Deisi Bush MCH (RBC) [Entitic mass] 30.5 pg Normal 25.9-34.0 [facility] Comment on above: Performed By: #### C BC #### [facility] [address] [address] [address] Deisi Bush MCHC (RBC) [Mass/Vol] 33.3 g/dL Normal 29.9-35.2 [facility] Comment on above: Performed By: #### C BC #### [facility] [address] [place] [address] Dr. Deisi Bush MCV (RBC) [Entitic vol] 91.4 fL Normal 80.0-94.0 [facility] Comment on above: Performed By: #### C BC #### [facility] [address] [place] [address] Dr. Deisi uBsh MONO # 0.6 103/ul Normal 0.3-0.8 [facility] Comment on above: Performed By: #### C BC #### [facility] [address] [place] [address] Dr. Deisi Bush Monocytes/100 WBC (Bld) 10.6 % Normal 1.7-12.0 [facility] Comment on above: Performed By: #### C BC #### [facility] [address] [place] [address] Dr. Deisi Bush NEUT # 1.7 103/ul Normal 1.4-6.5 [facility] Comment on above: Performed By: #### C BC #### [facility] [address] [place] [address] Dr. Deisi Bush Neutrophils/100 WBC (Bld) 31.9 % Critically low 43.0-75.0 [facility] Comment on above: Performed By: #### C BC #### [facility] [address] [place] [address] Dr. Deisi Bush Platelet mean volume (Bld) [Entitic vol] 9.2 fL Critically low 9.5-13.5 [facility] Comment on above: Performed By: #### C BC #### [facility] [address] [address] [address] Deisi Bush PLT 219 103/ul Normal 150-450 [facility] Comment on above: Performed By: #### C BC #### [facility] [address] [address] [address] Deisi Bush RBC 4.63 106/ul Critically low 4.70-6.10 [facility] Comment on above: Performed By: #### C BC #### [facility] [address] [address] [address] Deisi Bush WBC 5.2 103/ul Normal 4.0-11.0 [facility] Comment on above: Performed By: #### C BC #### [facility] [address] [place] [address] Dr. Deisi Bush LIPID PROFILEon 03-04-2022 CHOL-HDL RATIO NORM SEE BELOW Normal [facility] Comment on above: Result Comment: 3.3 - 4.4 LOW RISK 4.4 - 7.1 AVERAGE RISK 7.1 - 11.0 MODERATE RISK >11.0 HIGH RISK Performed By: #### T SH, LIPID, CMP #### [facility] [address] [place] [address] Dr. Deisi Bush Cholesterol [Mass/Vol] 125 mg/dL Normal <=200 [facility] Comment on above: Performed By: #### T SH, LIPID, CMP #### [facility] [address] [place] [address] Dr. Deisi Bush Cholesterol in HDL [Mass/Vol] 37 mg/dL Critically low 40-60 [facility] Comment on above: Performed By: #### T SH, LIPID, CMP #### [facility] [address] [place] [address] Dr. Deisi Bush Cholesterol in LDL [Mass/Vol] 75.6 mg/dL Normal [facility] Comment on above: Performed By: #### T SH, LIPID, CMP #### [facility] [address] [place] [address] Dr. Deisi Bush Cholesterol.total/Chol esterol in HDL [Mass ratio] 3.4 {ratio} Normal [facility] Comment on above: Performed By: #### T SH, LIPID, CMP #### [facility] [address] [place] [address] Dr. Deisi Bush HDL NORMAL > or = 60 mg/dl - LO W CARDIOVASCULAR RISK <40 mg/dl - HIGH CARDIOVASCULAR RISK Normal [facility] Comment on above: Performed By: #### T SH, LIPID, CMP #### [facility] [address] [place] [address] Dr. Deisi Bush LDL CALC NORMAL SEE BELOW Normal [facility] Comment on above: Result Comment: <100 mg/dl OPTIMAL 100 - 129 mg/dl NEAR OR ABOVE OPTIMAL 130 - 159 mg/dl BORDERLINE HIGH 160 - 189 mg/dl HIGH >190 mg/dl VERY HIGH Performed By: #### T SERGIO, LIPID, CMP #### [facility] [address] [place] [address] Dr. Deisi Bush Triglyceride [Mass/Vol] 62 mg/dL Normal <=150 [facility] Comment on above: Performed By: #### T SERGIO, LIPID, CMP #### [facility] [address] [place] [address] Dr. Deisi Bush VLDL CALC 12.4 mg/dL Normal [facility] Comment on above: Performed By: #### T SH, LIPID, CMP #### [facility] [address] [place] [address] Dr. Deisi Bush PROF 14(COMP METB)on 022 Albumin [Mass/Vol] 3.4 g/dL Normal 3.4-5.[address] [facility] Comment on above: Performed By: #### T SH, LIPID, CMP #### [facility] [address] [place] [address] Dr. Deisi Bush Albumin/Globulin [Mass ratio] 0.9 {ratio} Normal [facility] Comment on above: Performed By: #### T SH, LIPID, CMP #### [facility] [address] [place] [address] Dr. Deisi Bush ALP [Catalytic activity/Vol] 73 U/L Normal 46-116 [facility] Comment on above: Performed By: #### T SH, LIPID, CMP #### [facility] [address] [address] [address] Deisi Bush ALT [Catalytic activity/Vol] 27 U/L Normal 16-63 [facility] Comment on above: Performed By: #### T SERGIO, LIPID, CMP #### [facility] [address] [address] [address] Deisi Bush Anion gap [Moles/Vol] 11.6 mmol/L Normal [facility] Comment on above: Performed By: #### T SERGIO, LIPID, CMP #### [facility] [address] [place] [address] Dr. Deisi Bush AST [Catalytic activity/Vol] 22 U/L Normal 15-37 [facility] Comment on above: Performed By: #### T SERGIO, LIPID, CMP #### [facility] [address] [address] [address] Deisi Bush Bilirubin [Mass/Vol] 1.1 mg/dL Critically high 0.2-1.0 [facility] Comment on above: Performed By: #### T SERGIO, LIPID, CMP #### [facility] [address] [place] [address] Dr. Deisi Bush Calcium [Mass/Vol] 8.7 mg/dL Normal 8.5-10.[address] [facility] Comment on above: Performed By: #### T SH, LIPID, CMP #### [facility] [address] [place] [address] Dr. Deisi Bush Chloride [Moles/Vol] 105 mmol/L Normal 98-107 [facility] Comment on above: Performed By: #### T SH, LIPID, CMP #### [facility] [address] [place] [address] Dr. Deisi Bush CO2 [Moles/Vol] 27.6 mmol/L Normal 21.0-32.0 [facility] Comment on above: Performed By: #### T SH, LIPID, CMP #### [facility] [address] [address] [address] Deisi Bush Creatinine [Mass/Vol] 0.90 mg/dL Normal 0.70-1.30 [facility] Comment on above: Performed By: #### T SH, LIPID, CMP #### [facility] [address] [address] [address] Deisi Bush EGFR-AF LUXEMBOURGER >60 Normal >=60 [facility] Comment on above: Performed By: #### T SH, LIPID, CMP #### [facility] [address] [address] [address] Deisi Bush EGFR-NON AF LUXEMBOURGER >60 Normal >=60 [facility] Comment on above: Performed By: #### T SH, LIPID, CMP #### [facility] [address] [address] [address] Deisi Bush Globulin (S) [Mass/Vol] 3.6 g/dL Normal [facility] Comment on above: Performed By: #### T SH, LIPID, CMP #### [facility] [address] [address] [address] Deisi Bush Glucose [Mass/Vol] 96 mg/dL Normal 74-106 [facility] Comment on above: Performed By: #### T SH, LIPID, CMP #### [facility] [address] [address] [address] Deisi Bush Potassium [Moles/Vol] 4.2 mmol/L Normal 3.5-5.1 [facility] Comment on above: Performed By: #### T SH, LIPID, CMP #### [facility] [address] [address] [address] Deisi Bush Protein [Mass/Vol] 7.0 g/dL Normal 6.4-8.2 [facility] Comment on above: Performed By: #### T SH, LIPID, CMP #### [facility] [address] [address] [address] Deisi Bush Sodium [Moles/Vol] 140 mmol/L Normal 136-145 [facility] Comment on above: Performed By: #### T SH, LIPID, CMP #### [facility] [address] [address] [address] Deisi Bush Urea nitrogen [Mass/Vol] 16.0 mg/dL Normal 7.0-18.0 [facility] Comment on above: Performed By: #### T SH, LIPID, CMP #### [facility] [address] [address] [address] Deisi Bush Urea nitrogen/Creatinine [Mass ratio] 17.8 mg/mg Normal [facility] Comment on above: Performed By: #### T SH, LIPID, CMP #### [facility] [address] [address] [address] Deisi Bush TSHon 03-04-2022 TSH 1.259 uIU/mL Normal 0.358-3.740 [facility] Comment on above: Performed By: #### T SH, LIPID, CMP #### [facility] [address] [address] [address] Deisi Bush TSH RANGE SEE BELOW Normal [facility] Comment on above: Result Comment: <0.3 4 UIU/ml HYPERTHYROID 0.34-5.60 UIU/ml EUTHYROID >5.60 UIU/ml HYPOTHYROID Performed By: #### T SH, LIPID, CMP #### [facility] [address] [address] [address] Deisi Bush Lipid Panelon 09-21-2021 Cholesterol [Mass/Vol] 181 mg/dL Normal 125-200 [facility] Comment on above: Result Comment: Low risk < 200mg/dL Borderline risk 201-239 mg/dl High risk > or equal to 240 Performed By: #### L IPD #### [facility] [address] [place] [id number] Cholesterol in HDL [Mass/Vol] 41 mg/dL Normal >40 [facility] Comment on above: Result Comment: High Cardiovascular Risk HDL <40 mg/dL Low Cardiovascular Risk HDL > or equal to 60 mg/dl Performed By: #### L IPD #### [facility] [address] [place], [place] [id number] Cholesterol in LDL [Mass/Vol] 126 mg/dL Normal [facility] Comment on above: Result Comment: LDL ATP III CLASSIFICATION LDL less than 100 mg/dl Optimal LDL 100-129 mg/dl Near or above optimal LDL 130-159 Borderline high LDL 160-189 High LDL greater than 189 mg/dl Very High Performed By: #### L IPD #### [facility] [address] [place], [place] [id number] Cholesterol in VLDL [Mass/Vol] 14 mg/dL Normal [facility] Comment on above: Performed By: #### L IPD #### [facility] [address], [place] [id number] Cholesterol.total/Chol esterol in HDL [Mass ratio] 4 {ratio} Normal [facility] Comment on above: Performed By: #### L IPD #### [facility] [address], [place] [id number] Triglyceride [Mass/Vol] 72 mg/dL Normal 30-150 [facility] Comment on above: Result Comment: TRIG ATPIII CLASSIFICATIONS TRIG less than 150 mg/dl Normal TRIG 150-199 mg/dl Borderline High TRIG 200-500 mg/dl High TRIG greather than 500 mg/dl Very High Performed By: #### L IPD #### [facility] [address], [place] [id number] PSA SCREEN (MEDICARE)on 08-25 TPSA 3.110 ng/mL Normal <4.000 [facility] Comment on above: Result Comment: PSA Test Method: ECLIA/Saw e 601 Performed By: #### P SA MC #### [facility] [address], [place] [id number] Vital Signs Date Time Vital Sign Value Performing Clinician Facility 11-21-2024 08:28050 Body height 174 cm Martir Herbert MD Work Phone: [facility] 11-21-2024 [id number] Body mass index (BMI) [Ratio] 31.17 kg/m2 Martir Herbert MD Work Phone: [facility] 11-21-2024 [id number] Body weight 94.35 kg Martir Herbert MD Work Phone: [facility] 11-21-2024 08:28-0500 Diastolic blood pressure 74 mm[Hg] Martir Herbert MD Work Phone: [facility] 11-21-2024 08:28-0500 Heart rate 71 /min Martir Herbert MD Work Phone: [facility] 11-21-2024 08:28-0500 SaO2% (BldA) [Mass fraction] 96 % Martir Herbert MD Work Phone: [facility] 11-21-2024 08:28-0500 Systolic blood pressure 132 mm[Hg] Martir Herbert MD Work Phone: [facility] 07-04-2024 09:16-0400 Blood Pressure Location Abran OCHOA [facility] 07-04-2024 09:16-0400 Body temperature 98.6 [degF] Abran OCHOA [facility] 07-04-2024 09:16-0400 Diastolic blood pressure 77 mm[Hg] Abran OCHOA [facility] 07-04-2024 09:16-0400 Heart rate 64 /min Abran OCHOA [facility] 07-04-2024 09:16-0400 Respiratory rate 17 /min Abran OCHOA [facility] 07-04-2024 09:16-0400 Systolic blood pressure 131 mm[Hg] Abran OCHOA [facility] 04-10-2024 09:29-0400 Body mass index (BMI) [Ratio] 27.77 kg/m2 KENDRICK Mendiola MD Work Phone: [facility] 04-10-2024 09:29-0400 Body temperature 97.39 [degF] KENDRICK Mendiola MD Work Phone: [facility] 04-10-2024 09:29-0400 Body weight 85.3 kg KENDRICK Mendiola MD Work Phone: [facility] 04-10-2024 09:29-0400 Diastolic blood pressure 78 mm[Hg] KENDRICK Mendiola MD Work Phone: [facility] 04-10-2024 09:29-0400 Heart rate 71 /min KENDRICK Mendiola MD Work Phone: [facility] 04-10-2024 09:29-0400 Respiratory rate 18 /min KENDRICK Mendiola MD Work Phone: [facility] 04-10-2024 09:29-0400 SaO2% (BldA) [Mass fraction] 96 % KENDRICK Mendiola MD Work Phone: [facility] 04-10-2024 09:29-0400 Systolic blood pressure 152 mm[Hg] KENDRICK Mendiola MD Work Phone: [facility] 12-28-2023 08:06-0400 Blood Pressure Location Abran OCHOA [facility] 12-28-2023 08:06-0400 Diastolic blood pressure 87 mm[Hg] Abran OCHOA [facility] 12-28-2023 08:06-0400 Heart rate 51 /min Abran OCHOA [facility] 12-28-2023 08:06-0400 Respiratory rate 16 /min Abran OCHOA [facility] 12-28-2023 08:06-0400 Systolic blood pressure 131 mm[Hg] Abran OCHOA [facility] 12-19-2023 09:30-0400 Diastolic blood pressure 89 mm[Hg] MANGO Herbert Work Phone: [facility] 12-19-2023 09:30-0400 Heart rate 51 /min II Martir Herbert Work Phone: [facility] 12-19-2023 09:30-0400 Respiratory rate 16 /min II Martir Herbert Work Phone: [facility] 12-19-2023 09:30-0400 SaO2% (BldA) [Mass fraction] 97 % II Martir Herbert Work Phone: [facility] 12-19-2023 09:30-0400 Systolic blood pressure 165 mm[Hg] II Martir Herbert Work Phone: [facility] 12-19-2023 07:04-0400 Body height 175.26 cm II Martir Herbert Work Phone: [facility] 12-19-2023 07:04-0400 Body mass index (BMI) [Ratio] 28.8 kg/m2 II Martir Herbert Work Phone: [facility] 12-19-2023 07:04-0400 Body weight 88.45 kg II Martir Herbert Work Phone: [facility] 12-19-2023 06:22-0400 Body temperature 97.6 [degF] II Martir Herbert Work Phone: [facility] 12-18-2023 11:59-0400 Body height 175.26 cm [facility] 12-18-2023 11:59-0400 Body mass index (BMI) [Ratio] 26.6 kg/m2 [facility] 12-18-2023 11:59-0400 Body temperature 97.6 [degF] [facility] 12-18-2023 11:59-0400 Body weight 81.64 kg [facility] 12-18-2023 11:59-0400 Diastolic blood pressure 72 mm[Hg] [facility] 12-18-2023 11:59-0400 Heart rate 62 /min [facility] 12-18-2023 11:59-0400 Respiratory rate 16 /min [facility] 12-18-2023 11:59-0400 SaO2% (BldA) [Mass fraction] 98 % [facility] 12-18-2023 11:59-0400 Systolic blood pressure 120 mm[Hg] [facility] 10-08-2023 09:53-0500 Blood Pressure Location Abran OCHOA [facility] 10-08-2023 09:53-0500 Diastolic blood pressure 74 mm[Hg] Abranvalentin OCHOA [facility] 10-08-2023 09:53-0500 Heart rate 72 /min Abranvalentin OCHOA [facility] 10-08-2023 09:53-0500 Respiratory rate 16 /min Abran OCHOA [facility] 10-08-2023 09:53-0500 Systolic blood pressure 130 mm[Hg] Abran OCHOA [facility] 05-29-2023 09:10-0400 Diastolic blood pressure 67 mm[Hg] II Martir Herbert Work Phone: [facility] 05-29-2023 09:10-0400 Heart rate 51 /min II Martir Herbert Work Phone: [facility] 05-29-2023 09:10-0400 Respiratory rate 16 /min II Martir Herbert Work Phone: [facility] 05-29-2023 09:10-0400 SaO2% (BldA) [Mass fraction] 96 % II Martir Herbert Work Phone: [facility] 05-29-2023 09:10-0400 Systolic blood pressure 131 mm[Hg] II Martir Herbert Work Phone: [facility] 05-29-2023 07:30-0400 Body height 175.26 cm II Martir Herbert Work Phone: [facility] 05-29-2023 07:30-0400 Body temperature 98 [degF] II Martir Herbert Work Phone: [facility] 05-29-2023 07:30-0400 Body weight 81.64 kg II Martir Herbert Work Phone: [facility] 02-05-2023 08:47-0400 Diastolic blood pressure 80 mm[Hg] Abran OCHOA [facility] 02-05-2023 08:47-0400 Mean blood pressure 103 mm[Hg] Abran OCHOA [facility] 02-05-2023 08:47-0400 Systolic blood pressure 150 mm[Hg] Abran OCHOA [facility] 02-05-2023 08:42-0400 Blood Pressure Location Abran OCHOA [facility] 02-05-2023 08:42-0400 Diastolic blood pressure 80 mm[Hg] Abran OCHOA [facility] 02-05-2023 08:42-0400 Heart rate 53 /min Abran OCHOA [facility] 02-05-2023 08:42-0400 Systolic blood pressure 154 mm[Hg] Abran OCHOA [facility] 12-19-2022 06:51-0400 Body height 177.8 cm II Martir Herbert Work Phone: [facility] 12-19-2022 06:51-0400 Body weight 81.64 kg II Martir Herbert Work Phone: [facility] 12-04-2022 12:26-0400 Blood Pressure Location Abran OCHOA [facility] 12-04-2022 12:26-0400 Diastolic blood pressure 70 mm[Hg] Abran OCHOA [facility] 12-04-2022 12:26-0400 Heart rate 64 /min Abran OCHOA [facility] 12-04-2022 12:26-0400 Systolic blood pressure 149 mm[Hg] Abran OCHOA [facility] Encounters Encounter Date Encounter Type Care Provider Facility Start: 07-06-2025 ambulatory Abran Hernandezi ty:[facility] Start: 11-21-2024 End: 11-21-2024 Bamboo flowsheet Martir Herbert MD Work Phone: [facility] Start: 11-21-2024 End: 11-21-2024 Bamboo flowsheet Martir Herbert MD Work Phone: [facility] Start: 11-21-2024 End: 11-21-2024 Assay of hemosiderin, quant Martir Herbert MD Work Phone: [facility] Work Phone: Start: 11-21-2024 End: 11-21-2024 Patient encounter procedure Martir Herbert MD Work Phone: [facility] Comment on above: Routine general medi claudette examination at health care facility (Primary Dx); ACP (advance care planning); Benign essential hypertension (CMS/HCC); Mixed hyperlipidemia (CMS/HCC); Malignant neoplasm of prostate (CMS/HCC); Other giant cell arteritis (CMS/HCC); Blepharitis of upper and lower eyelids of both eyes, unspecified type; Localized edema Start: 11-21-2024 End: 11-21-2024 ambulatory MARTIR HERBERT Not Available Start: 11-14-2024 End: 11-14-2024 Clinisync Result Encounter Martir Herbert MD Work Phone: [facility] Unsolicited Start: 11-14-2024 End: 11-14-2024 Clinisync Result Encounter Martir Herbert MD Work Phone: [facility] Unsolicited Start: 09-25-2024 End: [...] Start: 07-04-2024 End: 07-04-2024 ambulatory Abran OCHOA Facility:[facility] Start: 07-04-2024 End: 07-04-2024 Patient encounter procedure Abran OCHOA [facility] Start: 07-01-2024 End: 07-01-2024 Clinisync Result [...] 04-10-2024 End: 04-10-2024 ambulatory MARTIR HERBERT II Facility:[facility] Start: 03-26-2024 End: 03-26-2024 ambulatory MARTIR HERBERT Not Available Start: 12-28-2023 End: 12-28-2023 ambulatory Abran OCHOA Facility:[facility] Start: 12-28-2023 End: 12-28-2023 Patient encounter procedure Abran OCHOA [facility] Start: 12-20-2023 End: 12-20-2023 ambulatory MARTIR HERBERT Not Available Start: 12-19-2023 Non-patient / Non-visit II Domenic Herbert Work Phone: [facility] Work Phone: Start: 12-19-2023 End: 12-19-2023 ambulatory Armani Kelly Facility:[facility] Start: 12-19-2023 End: 12-19-2023 Admission to same day surgery center II Martir Herbert Work Phone: [facility] [place] Start: 12-19-2023 End: 12-19-2023 ambulatory II Martir Herbert Work Phone: [facility] Work Phone: Start: 12-18-2023 End: 12-18-2023 ambulatory [facility] Work Phone: Start: 12-18-2023 End: 12-18-2023 Patient encounter procedure [facility] Work Phone: Start: 12-06-2023 End: 12-06-2023 ambulatory MARTIR HERBERT Not Available Start: 10-11-2023 End: 10-11-2023 ambulatory MARTIR HERBERT II Facility:[facility] Start: 10-08-2023 End: 10-08-2023 ambulatory Abran OCHOA Facility:[facility] Start: 10-08-2023 End: 10-08-2023 Patient encounter procedure Abran OCHOA [facility] Start: 10-03-2023 End: 10-03-2023 ambulatory MARTIR HERBERT II Facility:[facility] Start: 10-03-2023 End: 10-03-2023 Subsequent hospital visit by physician [facility] Scan Yunier Lewis Work Phone: Radiology [facility] Start: 09-21-2023 End: 09-21-2023 ambulatory Abran OCHOA Facility: [facility] Start: 09-21-2023 End: 09-21-2023 Patient encounter procedure Abran OCHOA [facility] Start: 09-19-2023 End: 09-19-2023 ambulatory MARTIR HERBERT II Facility:[facility] Start: 09-12-2023 End: 09-12-2023 [facility] Start: 09-12-2023 End: 09-12-2023 Patient encounter procedure Abran OCHOA [facility] Start: 09-06-2023 End: 09-06-2023 ambulatory MARTIR HERBERT II Facility:[facility] Start: 09-06-2023 End: 09-06-2023 Patient encounter procedure Jc Mendiola MD Work Phone: Radiation Oncology Comment on above: Malignant neoplasm o f prostate (HCC) (Primary Dx) Start: 09-06-2023 End: 09-06-2023 ambulatory Abran OCHOA Facility:[id number] Start: 08-08-2023 ambulatory Abran OCHOA Facili ty:[facility] Start: 07-25-2023 Patient encounter procedure [facility] Provider [facility] Department Start: 07-24-2023 Telephone encounter Jc Mendiola MD Work Phone: [facility]cology Comment on above: Appointment Start: 07-11-2023 Patient encounter procedure Jc Mendiola MD Work Phone: [facility] Start: 07-11-2023 Radiation Oncology Note G Walter Mendiola MD Work Phone: Rad[facility]cology Comment on above: Simulation Note Start: 07-11-2023 End: 07-11-2023 ambulatory MARTIR HERBERT II Facility:[facility] Start: 05-29-2023 End: 05-29-2023 ambulatory Martirheraclio Herbert Facility:[facility] Start: 05-29-2023 End: 05-29-2023 Admission to same day surgery center II Martir Herbert Work Phone: [facility] Work Phone: Start: 05-29-2023 End: 05-29-2023 ambulatory II Martir Herbert Work Phone: [facility] Work Phone: Start: 05-23-2023 Patient encounter procedure Ccf Provider [facility] Department Start: 05-02-2023 Telephone encounter G Chirag Mendiola MD Work Phone: Radiation Oncology Comment on above: Constipation; Rectal Bleeding; Future Appointment Start: 02-21-2023 Patient encounter procedure Ccf Provider [facility] Department Start: 02-05-2023 End: 02-05-2023 Patient encounter procedure Abran OCHOA [facility] Start: 01-16-2023 End: 01-16-2023 Patient encounter procedure Abran OCHOA [facility] Start: 12-19-2022 End: 12-19-2022 ambulatory II Martirheraclio Herbert Work Phone: [facility] Work Phone: Start: 12-19-2022 End: 12-19-2022 Patient encounter procedure II Martir Herbert Work Phone: [facility] [place] Work Phone: Start: 12-04-2022 End: 12-04-2022 Patient encounter procedure Abran OCHOA [facility] Start: 10-17-2022 End: 10-18-[address] ABRAN OCHOA Facility:H1 Start: 09-22-2022 End: 09-22-2022 Patient encounter procedure Abran OCHOA [facility] Start: 03-04-2022 End: 03-05-[address] MARTIR HERBERT Facility:H1 Procedures Date Procedure Procedure Detail Performing Clinician Start: 11-14-2024 ALL CBC WITH AUTO DIFF Martir Herbert MD Work Phone: Start: 09-25-2024 ALL C REACTIVE PROTEIN Generic [...] Vaccine (2 - Td or Tdap) [facility] Start: 05-28-2025 End: 05-28-2025 Patient encounter procedure 05/28/2025 8:30 AM EDT Office Visit [facility] [address] [facility] [address] [place] [address] Martir Herbert MD [address] [facility] [address] [place] [address] [facility] Start: 04-09-2025 End: 04-09-2025 Patient encounter procedure 04/09/2025 9:00 AM EDT Office Visit Radiation Oncology [address] [place] [address] Jc Mendiola MD [address] [place] [address] Followup Radiation Oncology Comment on above: Followup Start: 11-21-2024 End: 11-21-2024 Patient encounter procedure [facility] Comment on above: Arrived Start: 09-29-2024 End: 09-29-2024 Patient encounter procedure 09/29/2024 8:30 AM EST Office Visit [facility] [address] [facility] [facility] [address] [place] [id number] Martir Herbert MD [address] [facility] [address] [place] [address] [facility] Start: 05-25-2024 Covid-19 Vaccine () Covid-19 Vaccine () [facility] Start: 05-25-2024 Influenza vaccination Influenza Vacc ine (#1) [facility] Start: 12-19-2023 [facility] Start: 12-19-2023 [facility] Start: 11-29-2023 Covid-19 Vaccine () Covid-19 Vaccine () [facility] Start: 09-24-2023 Advance Directive Discussion Advance Directive Discussion [facility] Start: 09-24-2023 Behavioral Health Screening Behavioral Health Screening [facility] Start: 05-29-2023 [facility] Start: 05-25-2023 Covid-19 Vaccine ( season) Covid-19 Vaccine () [facility] Start: 05-25-2023 Influenza vaccination [facility] Start: 12-11-2022 COVID-19 VACCINE (5 - Pfizer series) COVID-19 VACCINE (5 - Pfizer series) [facility] Start: 09-24-2022 ADVANCE DIRECTIVE DISCUSSION ADVANCE DIRECTIVE DISCUSSION [facility] Start: 09-24-2022 DEPRESSION ASSESSMENT DEPRESSION ASS ESSMENT [facility] Start: 2006 PNEUMOCOCCAL: 65+ (1 - PCV) PNEUMOCOCCAL: 65+ (1 - PCV) [facility] Start: 2001 RSV Vaccine (1 - 1-d ose 60+ series) RSV Vaccine (1 - 1-dose 60+ series) [facility] Start: 11-24-1991 SHINGRIX VACCINE (1 of 2) SHINGRIX VACCINE (1 of 2) [facility] Start: 1986 [facility] Start: 1986 Diabetes Screening Diabetes Screenin g [facility] Start: 1960 Urine microalbumin profile DTAP,TDAP,TD (1 - Tdap) [facility] Start: 11-24-1959 Anxiety Screening Anxiety Screening [facility] Start: 11-24-1959 Depression Screening Depression Scre ening [facility] Patient referral [facility] Work Phone: [facility] Immunizations Immunization Date Immunization Notes Care Provider [facility] 07-04-2024 influenza, high dose seasonal, preservative-free Martir Herbert MD Work Phone: [facility] 11-16-2023 RSV, recombinant, protein subunit RSVpreF, adjuvant reconstitu, 120mcg/0.5mL, PF (Arexvy) Martir Herbert MD Work Phone: [facility] 07-31-2023 COVID-19 (PFIZER) 12Y and older II Martir Herbert Work Phone: [facility] 07-31-2023 influenza virus vacc ine, unspecified formulation Abran OCHOA [facility] 07-31-2023 Influenza, Seasonal, Quadrivalent, Adjuvanted Generic Provider [facility] 08-13-2022 influenza virus vacc ine, unspecified formulation Abran OCHOA [facility] 08-13-2022 Influenza, Seasonal, Quadrivalent, Adjuvanted Generic Provider [facility] 08-13-2022 SARS-CoV-2 (COVID-19 ) [id number] Abran OCHOA [facility] 12-18-2021 zoster vaccine recombinant Abran OCHOA [facility] 09-21-2021 zoster vaccine recombinant Abran OCHOA [facility] 09-19-2021 tetanus toxoid, redu lester diphtheria toxoid, and acellular pertussis vaccine, adsorbed Abran OCHOA [facility] 08-25-2021 influenza virus vacc ine, unspecified formulation Abran OCHOA [facility] 06-25-2021 influenza virus vacc ine, unspecified formulation Abran OCHOA [facility] 06-25-2021 Influenza, Seasonal, Quadrivalent, Adjuvanted Generic Provider [facility] 06-25-2021 SARS-CoV-2 (COVID-19 ) mRNA BNT-162b2 vax Abran OCHOA [facility] Comment on above: Result Comment: 2022: [id number] 11-14-2020 SARS-CoV-2 (COVID-19 ) mRNA BNT-162b2 vax Abran OCHOA [facility] Comment on above: Result Comment: 2022: [id number] 10-24-2020 SARS-CoV-2 (COVID-19 ) mRNA BNT-162b2 vax Abran OCHOA [facility] Comment on above: Result Comment: 2022: [id number] 07-03-2020 influenza, high dose seasonal, preservative-free Generic Provider [facility] 06-28-2020 influenza virus vacc ine, unspecified formulation Abran OCHOA [facility] 07-02-2019 influenza virus vacc ine, unspecified formulation Abran OCHOA [facility] 07-02-2019 pneumococcal conjuga te vaccine, 13 valent Abran OCHOA [facility] 07-02-2019 Seasonal trivalent influenza vaccine, adjuvanted, preservative free Generic Provider [facility] 06-29-2018 influenza virus vacc ine, unspecified formulation Abran OCHOA [facility] 06-29-2018 Seasonal trivalent influenza vaccine, adjuvanted, preservative free Generic Provider [facility] 06-21-2017 influenza virus vacc ine, unspecified formulation Abranvalentin OCHOA [facility] 06-21-2017 influenza, high dose seasonal, preservative-free Martir Herbert MD Work Phone: [facility] 08-18-2015 influenza virus vacc ine, unspecified formulation Abranvalentin OCHOA [facility] 08-18-2015 influenza, high dose seasonal, preservative-free Generic Provider [facility] 06-23-2014 influenza virus vacc ine, unspecified formulation Abran OCHOA [facility] 06-23-2014 influenza, seasonal, injectable, preservative free Generic Provider [facility] 07-01-2013 influenza virus vacc ine, unspecified formulation Abranvalentin OCHOA [facility] 07-01-2013 influenza, seasonal, injectable Martir Herbert MD Work Phone: [facility] 07-01-2013 zoster vaccine, live Abran OCHOA [facility] 10-05-2009 pneumococcal polysaccharide vaccine, 23 valent Generic Provider [facility] Payers Date Payer Category Payer Self-pay 2022 Private Health Insurance [id number] 2006 Medicare [id number] 1959 Medicare [id number] 1959 Private Health Insurance [id number] 1941 Unknown [id number] 1941 Unknown [id number] [id number] 1941 Unknown [id number] [id number] 1941 Unknown [id number] [id number] 1941 Unknown [id number] [id number] 1941 Unknown [id number] [id number] 1941 Unknown [id number] [id number] 1941 Unknown [id number] [id number] 1941 Unknown [id number] [id number] 1941 Unknown [id number] [id number] 1941 Unknown [id number] [id number] 1941 Unknown [id number] [id number] 1941 Unknown [id number] [id number] 1941 Unknown [id number] [id number] Unknown Insurance No Card [id number] Unknown [id number] [id number] Unknown [id number] [id number] Social History Date Type Detail Facility Start: 09-01-2020 End: 11-12-2023 Tobacco smoking status Never smoked tobacco (finding) [facility] Tobacco smoking status Never [facility] Start: 02-16-2023 End: 11-21-2024 Sex Assigned At Male [facility] Start: 1940 Sex Assigned At Male [facility] Start: 02-16-2023 End: 11-12-2023 Tobacco use and exposure Smokeless tobacco non-user [facility] Start: 02-16-2023 End: 09-19-2023 Alcohol intake Ex-drinker (finding) [facility] Start: 1940 Sex Assigned At Not on file [facility] Start: 02-16-2023 End: 11-21-2024 History of [address] function [facility] Goals Date Patient Goal Desired Activity /State Functional Status Date Assessment Result Facility 07-04-2024 Functional Status N/A [facility] 12-28-2023 Functional Status N/A [facility] 10-08-2023 Functional Status N/A [facility] 02-05-2023 Functional Status N/A [facility] 12-04-2022 Functional Status N/A [facility] Clinical Notes 02-23-2022 to 11-21-2024 Martir Herbert MD - 11/21/2024 8:30 AM Jc Viera MD - 04/10/2024 9:45 AM Nichelle Hart RN - 04/10/2024 9:32 AM Nichelle Hart RN - 04/10/2024 9:32 AM EDT Note Date & Type Note Facility 11-21-2024 History of Present illness Narrative Images from the original note were not included. HPI Results Additional comments: Lab results Med Refill Additional comments: Lisinopril, omega 3, simvastain,lasix--optum rx Last edited by Judy Nelson LPN on 11/21/2024 8:38 AM. Subjective : Chief Complaint: Jose Can is an 83 y.o. male here for an annual wellness visit. I have reviewed and reconciled the history and medication list with the patient today. Current Outpatient Medications Medication Sig Dispense Refill aspirin 81 MG EC tablet Take 81 mg by mouth in the morning. calcium citrate (Calcitrate) 950 (200 Ca) MG tablet Take 200 mg by mouth in the morning. cholecalciferol (Vitamin D-3) 25 MCG (1000 UT) tablet Take 1,000 Units by mouth in the morning. furosemide (Lasix) 20 MG tablet TAKE 1 TABLET BY MOUTH ONCE A DAY NEEDED FOR EDEMA/LEG SWELLING 90 tablet 1 lisinopril 10 MG tablet TAKE 1 TABLET BY MOUTH IN THE MORNING 90 tablet 3 omega-3 acid ethyl esters (Lovaza) 1 g capsule TAKE 1 CAPSULE BY MOUTH IN THE MORNING AND 1 CAPSULE BY MOUTH BEFORE BEDTIME 180 capsule 3 oxybutynin (Ditropan) 5 MG tablet Take 5 mg by mouth at bedtime simvastatin (Zocor) 20 MG tablet TAKE 1 TABLET BY MOUTH IN THE MORNING 90 tablet 3 erythromycin (Romycin) 5 MG/GM ophthalmic ointment Apply to affected eye(s) 4 (four) times a day for 7 days Apply Amount per Dose: 0.5 inch (~1 cm) per dose. 3.5 g 1 No current facility-administered medications for this visit. Review of Systems List of current healthcare providers: Patient Care Team: Martir Herbert MD as PCP - General (Internal Medicine) Martir Herbert MD as PCP - ACO [employer] Medicare Annual Visit Over the past 2 weeks, how often have you been bothered by any of the following problems? Little interest or pleasure in doing things: Not at all Feeling down, depressed, or hopeless: Not at all Patient Health Questionnaire-2 Score: 0 Manriquez Fall Risk History of Falling, Immediate or Within 3 Months: No Secondary Diagnosis: No Ambulatory Aid: Walks without aid/bedrest/nurse assist Health Risk Assessment Form Do you need help eating, bathing, using the toilet, dressing, or getting around your home?: No Can you prepare your own meals?: Yes Can you do your own housework without help?: Yes Can you shop for groceries or clothes without help?: Yes Do you exercise for about 20 minutes 3 or more days a week?: Yes How confident are you that you can control and manage most of your health problems?: Very confident Can you mange your money, credit cards and accounts, pay bills and taxes?: No Cognitive Screening Three Word Registration: Apple, Watch, Kiya Clock Drawing: Normal Clock - 2 Three Word Recall: 1/3 words correct - 1 Total Score (0-5 Points): 3 Pain Assessment Pain Score: 3 Advance Care Planning Do you have a living will?: Yes Do you have a medical power of civil litigation attorney?: Yes Who is your medical power of civil litigation attorney?: daughter Objective : BP 132/74 Pulse 71 Ht 5' 8.5 Wt 208 lb SpO2 96% BMI 31.17 kg/m No results found. Physical Exam Assessment/Plan : The following health maintenance schedule was reviewed with the patient and provided in printed form in the after visit summary: Health Maintenance Topic Date Due Influenza Vaccine Completed Pneumococcal Vaccine: 65+ Years Completed Advance Care Planning Assessment/Plan Diagnoses and all orders for this visit: Routine general medical examination at health care facility ACP (advance care planning) Benign essential hypertension (CMS/HCC) - lisinopril 10 MG tablet; Take 1 tablet (10 mg) by mouth in the morning. Mixed hyperlipidemia (CMS/HCC) - omega-3 acid ethyl esters (Lovaza) 1 g capsule; TAKE 1 CAPSULE BY MOUTH IN THE MORNING AND 1 CAPSULE BY MOUTH BEFORE BEDTIME - simvastatin (Zocor) 20 MG tablet; Take 1 tablet (20 mg) by mouth in the morning. Malignant neoplasm of prostate (CMS/HCC) Other giant cell arteritis (CMS/HCC) Blepharitis of upper and lower eyelids of both eyes, unspecified type - erythromycin (Romycin) 5 MG/GM ophthalmic ointment; Apply to affected eye(s) 4 (four) times a day for 7 days Apply Amount per Dose: 0.5 inch (~1 cm) per dose. Localized edema - furosemide (Lasix) 20 MG tablet; Take 1 tablet (20 mg) by mouth Daily Follow up in about 6 months (around 05/21/2025) for Routine F/U. No orders of the defined types were placed in this encounter. Electronically signed by Martir Herbert MD on November 21, 2024 documented in this encounter [facility] 07-04-2024 Hospital Discharge instructions Patient Education 07/04/2024 [...] under a microscope. This is called the [place] score and the total score can range from 6 10, indicating how likely it is that the cancer will spread (metastasize) to other parts of the body. The higher the score, the greater the likelihood that the cancer will spread. [place] 6 or lower: This indicates that the cancer cells look similar to normal prostate cells (well differentiated). [place] 7: This indicates that the cancer cells look somewhat similar to normal prostate cells (moderately differentiated). [place] 8, 9, or 10: This indicates that [...] stress of having cancer. General instructions Take bgya-acy-eiqucff and prescription medicines only as told by your health care provider. If you have to go to the hospital, notify your cancer specialist (oncologist). Keep all follow-up visits. This is important. Where to find more information [place] [employer]: www.cancer.org [place] Society of Clinical Oncology: www.cancer.net National Cancer [place]: www.cancer.gov Contact a health care provider if: [...] provider. Document Revised: 12/07/2021 Document Reviewed: 12/07/2021 [employer] Patient Education 2023 [employer]. Follow Up Care 12/28/2023 08:57:43 With:LDAAN EDWARDS, Abran Darling, URL Address: [facility] [address] , [place] [address]- When: Unknown [facility] 07-04-2024 Note Patient Education Oncology Prostate [...] to normal prostate cells (moderately differentiated). ? [place] 8, 9, or 10: This indicates that [...] the prostate gla (more content not included)... [facility] 04-10-2024 History of Present illness Narrative Radiation [...] Mendiola MD cc: Martir Herbert II, MD [address] [place] [address] Dr. Ochoa documented in this encounter [facility] 04-10-2024 Note HNO ID: [id number] Author: Jc MENDIOLA MD Service: ? Author [...] ASSESSMENT/PLAN: Prostate adenocarcinoma, initial PSA 3.1, biopsy [place] score 3 + 4 = 7 (grade [...] Mendiola MD cc: Martir Herbert II, MD [address] [place] [address] Dr. Ochoa [facility] 04-10-2024 Nurse Note LAY [address] [facility] 04-10-2024 Nurse Note LAY Elkins RN documented in this encounter [facility] 12-28-2023 Hospital Discharge instructions Patient Education 12/28/2023 [...] urethra. Follow these instructions at home: Take dxst-zkh-fhdfudt and prescription medicines only as told by [...] provider. Document Revised: 03/29/2022 Document Reviewed: 03/29/2022 [employer] Patient Education 2022 [employer]. Follow Up Care 12/04/2022 12:55:53 With:LADAN EDWARDS, Abran Darling, URL Address: [address] [place] [address]- When: Unknown [facility] 10-11-2023 Note HNO ID: [id number] Author: Jc MENDIOLA MD Service: ? Author [...] Mendiola MD cc: Martir Herbert II, MD [address] [place] [address] Dr. Ochoa [facility] 10-08-2023 Hospital Discharge instructions Patient Education [...] treat constipation, you may need to: Take ehcs-uie-txgurvs or prescription medicines. Eat foods that are high in fiber, such as beans, whole grains, and fresh fruits and vegetables. Limit foods that are high in fat and processed sugars, such as fried or sweet foods. General instructions Take cjbg-vcd-wcaolmm and prescription medicines only as told by [...] provider. Document Revised: 12/07/2021 Document Reviewed: 12/07/2021 [employer] Patient Education 2022 [employer]. Follow Up Care 06/26/2023 12:00:57 With:LADAN EDWARDS, Abran Darling, URL Address: [facility] [address] [place] [address]- [phone] When: Unknown Comments:3 mos w/ PSA [facility] 10-03-2023 Note HNO ID: [id number] Author: Jc MENDIOLA MD Service: ? Author Type: Physician Type: [place] Notes Filed: 10/12/2023 11:35 Note Text: Patient: Jose Can Date:10/03/2023 [facility] Department of Radiation Oncology [facility] RADIATION ONCOLOGY POST SEED IMPLANT SIMULATION NOTE [...] Electronically Signed CHIRAG MENDIOLA M.D. 1:35 AM [facility] 09-19-2023 Note HNO ID: [id number] Author: Jc Mendiola MD Service: ? Author [...] ASSESSMENT/PLAN: Prostate adenocarcinoma, initial PSA 3.1, biopsy [place] score 3 + 4 = 7 (grade [...] Mendiola MD cc: Martir Herbert II, MD [address] [place] [address] No referring provider defined for this encounter. [facility] 09-06-2023 Note HNO ID: [id number] Author: Jc Mendiola MD Service: ? Author Type: Physician Type: [place] Notes Filed: 09/06/2023 3:18 PM Note Text: Date: 09/06/23 Facility: [facility] Procedure: prostate transperineal brachytherapy implant Diagnosis: [...] seen, results documented. Edilma Mendiola MD [facility] 09-06-2023 History of Present illness Narrative Date: 09/06/23 Facility: [facility] Procedure: prostate transperineal brachytherapy implant Diagnosis: [...] activity seen, results documented. Edilma Mendiola MD [facility] documented in this encounter [facility] 08-25-2023 Note HNO ID: [id number] Author: Jc Mendiola MD Service: ? Author Type: Physician Type: [place] Notes Filed: 09/06/2023 12:36 AM Note Text: JOSE CAN [id number] 08/25/2023 [facility] Department of Radiation Oncology [facility] RADIATION ONCOLOGY BRACHYTHERAPY TREATMENT PLANNING NOTE For [...] Chirag Mendiola M.D. / NATY :42 PM [facility] 07-25-2023 Miscellaneous Notes Enriqueta pt's dtr, [...] Quinn RN documented in this encounter [facility] 07-12-2023 Note HNO ID: [id number] Author: Jc Mendiola MD Service: ? Author [...] Visit completed when applicable. Jc Mendiola MD [facility] 07-11-2023 History of Present illness Narrative RENO CANNETH [id number] 07/11/2023 [facility] Department of Radiation Oncology [facility] RADIATION ONCOLOGY SIMULATION NOTE DATE OF SIMULATION: 07/11/2023 MACHINE: Hover 3D Flex Focus 500 Diagnosis: 185 (Prostate Gland) AREA:Prostate PATIENT POSITION: Supine CONTRAST: None PROTOCOL: None CONCURRENT THERAPY: None FIXATION DEVICE: UTS Stabilization device by PAAY. PROCEDURE: Patient was simulated in exaggerated dorsal lithotomy position. Serial images of the prostate were acquired using TRUS and reconstructed in 3D space. These images were imported into [employer] Prostate planning system where a plan was generated. ASSESSMENT/PLAN: Patient tolerated simulation procedure well. Electronically Signed Chirag Mendiola M.D. / NATY 35:19 PM documented in this encounter [facility] 07-11-2023 Note HNO ID: [id number] Author: Jc Mendiola MD Service: ? Author Type: Physician Type: [place] Notes Filed: 07/12/2023 12:35 AM Note Text: JOSE CAN [id number] 07/11/2023 [facility] Department of Radiation Oncology [facility] RADIATION ONCOLOGY SIMULATION NOTE DATE OF SIMULATION: 07/11/2023 MACHINE: The Jetstream Focus 500 Diagnosis: 185 (Prostate Gland) AREA:Prostate PATIENT POSITION: Supine CONTRAST: None PROTOCOL: None CONCURRENT THERAPY: None FIXATION DEVICE: UTS Stabilization device by PAAY. PROCEDURE: Patient was simulated in exaggerated dorsal lithotomy position. Serial images of the prostate were acquired using TRUS and reconstructed in 3D space. These images were imported into [employer] Prostate planning system where a plan was generated. ASSESSMENT/PLAN: Patient tolerated simulation procedure well. Electronically Signed Chirag Mendiola M.D. / NATY 35:19 PM [facility] 05-29-2023 Procedure note [facility] 05-03-2023 Miscellaneous Notes Patients daughter [...] seed implant surgery. Thank you Nichelle Elkins, RN Call placed to let Enriqueta know [...] colonoscopy was done per Dr Franco at [facility] in [address]. [address] Mendiola-- please advise. Nichelle Elkins RN documented in this encounter [facility] 02-05-2023 Hospital Discharge instructions Patient Education [...] the likelihood that the cancer will spread. [place] 6 or lower: This indicates that the cancer cells look similar to normal prostate cells (well differentiated). [place] 7: This indicates that the cancer cells look somewhat similar to normal prostate cells (moderately differentiated). [place] 8, 9, or 10: This indicates that [...] stress of having cancer. General instructions Take vjay-yec-uoryelg and prescription medicines only as told by your health care provider. If you have to go to the hospital, notify your cancer specialist (oncologist). Keep all follow-up visits. This is important. Where to find more information [employer] Society: www.cancer.org [place] Society of Clinical Oncology: www.cancer.net National Cancer Mck[place]: www.cancer.gov Contact a health care provider if: [...] provider. Document Revised: 12/07/2021 Document Reviewed: 12/07/2021 [employer] Patient Education 2022 [employer]. Follow Up Care 01/04/2023 12:26:51 With:LADAN EDWARDS, Abran Darling, URL Address: [facility] [address] , [place] [address]- [phone] When:Within 6 Month(s) Comments:Will refer to Dr. Mendiola [facility] 01-16-2023 Hospital Discharge instructions Patient Education [...] for your post-operative appointment in 1-2 weeks [phone] or [phone] Follow Up Care 01/04/2023 11:45:40 With:Abran OCHOA Address: [facility] [address], [place] [address]- [facility] (1) When: Unknown Comments:Keep scheduled appointment [facility] 12-04-2022 Hospital Discharge instructions Patient [...] urethra. Follow these instructions at home: Take rzxn-uym-eduaqir and prescription medicines only as told by [...] [place] Do not drive yourself to the [facility]. Summary Benign prostatic hyperplasia (BPH) is an [...] 09/10/2006 Document Revised: 08/05/2019 Document Reviewed: 10/15/2017 [employer] Patient Education [employer]. Follow Up Care 09/22/2022 08:10:59 With:Abran OCHAO MD, URL Address: [facility] [address] [place] [address]- When: Unknown [facility] 02-23-2022 Hospital Discharge instructions Follow Up Care 02/23/2022 13:31:33 With:Abran OCHOA MD, URL Address: [address] [place] [address]- When: Unknown [facility] Evaluation + Plan note Future Appointments Appointment Date:12/04/2022 12:15:00 PM Scheduled Provider:Abran OCHOA MD Location:[facility] Appointment Type:URO Office Visit [facility] Evaluation + Plan note Future Appointments Appointment Date:12/07/2023 08:00:00 AM Scheduled Provider:Abran OCHOA MD Location:[facility] Appointment Type:URO Office Visit [facility] Evaluation + Plan note Future Appointments Appointment Date:02/05/2023 08:30:00 AM Scheduled Provider:Abran OCHOA MD Location:[facility] Appointment Type:URO Office Visit Appointment Date:12/07/2023 08:00:00 AM Scheduled Provider:Abran OCHOA MD Location:[facility] Appointment Type:URO Office Visit Diagnostic Tests PendingProstate Histology ([facility]) 01/16/23 [facility] Evaluation + Plan note Future Appointments Appointment Date:12/07/2023 08:00:00 AM Scheduled Provider:[facility] Office Visit Diagnostic Tests PendingPSA Total 02/05/23 [facility] Evaluation + Plan note Future Appointments Appointment Date:10/08/2023 09:30:00 AM Scheduled Provider:Abran OCHOA MD Location:[facility] Appointment Type:URO Office Visit Appointment Date:12/07/2023 08:00:00 AM Scheduled Provider:Abran OCHOA MD Location:[facility] Appointment Type:URO Office Visit [facility] Evaluation + Plan note Future Appointments Appointment Date:12/28/2023 08:00:00 AM Scheduled Provider:Abran OCHOA MD Location:[facility] Appointment Type:URO Office Visit Diagnostic Tests PendingPSA Total 10/08/23 [facility] Evaluation + Plan note Future Appointments Appointment Date:07/04/2024 09:15:00 AM Scheduled Provider:Abran OCHOA MD Location:[facility] Appointment Type:URO Office Visit Diagnostic Tests PendingPSA Total 04/24/24 [facility] Evaluation + Plan note Future Appointments Appointment Date:07/06/2025 08:45:00 AM Scheduled Provider:Abran OCHOA MD Location:[facility] Appointment Type:URO Office Visit [facility] Evaluation note No assessment inform ation available [facility] Work Phone: Evaluation note Diagnosis Rectal bleeding- Primary Hemorrhage of rectum and anus Constipation, unspecified constipation type Prostate cancer (HCC) Malignant neoplasm of prostate [facility] Malignant neoplasm of prostate (HCC)- Primary Malignant neoplasm of prostate [facility] Diagnosis Onset Date Resolution Status Temporal arteritis acute [facility] Work Phone: Evaluation note* Diagnosis Malignant neoplasm of prostate (HCC)- Primary Malignant neoplasm of prostate [facility] this [facility] Diagnosis Routine general medical examination at health care facility- Primary Routine general medical examination at a health care facility ACP (advance care planning) Other specified counseling Benign essential hypertension (CMS/HCC) Essential hypertension, benign Mixed hyperlipidemia (CMS/HCC) Mixed hyperlipidemia Malignant neoplasm of prostate (CMS/HCC) Malignant neoplasm of prostate Other giant cell arteritis (CMS/HCC) Blepharitis of upper and lower eyelids of both eyes, unspecified type Localized edema Edema documented in this encounter [facility] Author Juan Jiang [facility] May 29, 2023 8:21am Note Date/Time May 29, 2023 8:21am [facility] [address] [place] [address] Gastroenterology H&P Signed Patient: Jose Can MR#: [id number] : 1940 Acct:[id number] Age/Sex: 82 / M Adm Date: 3 Loc: Room: Type: [facility] Attending Dr: Juan Jiang MD Copies to: [...] <Electronically signed by Juan Jiang MD> 05/29/23820 [facility] Work Phone: Hospital course Narrative No data available for this section [facility] Hospital Discharge instructions Additional Instructions DISCHARGE [...] years. -Follow up with PCP. -Office number [phone]. [facility] Work Phone: Hospital Discharge instructions No data available for this section [facility] progress note No data available for this section [facility] reason for referral (narrative) , Refer to Dr. Mendiola for [place] [employer] Referred by: Abran OCHOA MD [facility] Summary Purpose Family History No Family [...] section and content) DATE CREATED AUTHOR 09/22/2021 [facility] dical Specialist DATE CREATED AUTHOR AUTHOR'S ORGANIZ ATION 10/18/2022 [facility] DATE CREATED AUTHOR AUTHOR'S ORGANIZ ATION 02/09/2024 [facility] DATE CREATED AUTHOR AUTHOR'S ORGANIZ ATION 04/16/2024 [facility] DATE CREATED AUTHOR AUTHOR'S ORGANIZ ATION 07/06/2024 [facility] DATE CREATED AUTHOR AUTHOR'S ORGANIZ ATION 2024 [facility] Specialists EPIC Patient Care team informatio n (unrecognized section and content) Team Status: Active Member Role Status Dates Martir Herbert II MD Primary Care Provider Active Team Status: Inactive Member Role Status Dates Martir Herbert II MD Primary Care Provider Active Abran Ochoa MD Attending Provider Active Art[employer] 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 Relationship Specialty Start Date End Date Martir Herbert II [address] [facility] [address] [place] [address] PCP - General Internal Medicine 02/06/23 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 Relationship Specialty Start Date End Date Martir Herbert II, MD [address] [facility] [address] [place] [address] PCP - General Internal Medicine 02/06/23 Team Status: Inactive Member Role Status Dates Martir Herbert II MD Primary Care Provider Active Juan Jiang MD Attending Provider Active 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 Relationship Specialty Start Date End Date Martir Herbert II, MD [address] [place] [address] [place] [address] PCP - General Internal Medicine 02/06/23 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 Relationship Specialty Start Date End Date Martir Herbert II, MD [address] [place] [address] [place] [address] PCP - General Internal Medicine 02/06/23 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 Relationship Specialty Start Date End Date Martir Herbert II, MD [address] [place] [address] [place] [address] PCP - General Internal Medicine 02/06/23 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 Relationship Specialty Start Date End Date Martir Herbert II, MD [address] [place] [address] [place] [address] PCP - General Internal Medicine 02/06/23 Team [...] Other Provider Active Start: December 19, 2023 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 Relationship Specialty Start Date End Date Martir Herbert II, MD [address] [facility] [address] [place] [address] PCP - General Internal Medicine 02/06/23 Artificial [employer] 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 Relationship Specialty Start Date End Date Martir Herbert MD [address] [facility] [address] [place] [address] PCP - ACO Reach 02/15/23 Martir Herbert MD [address] [place] [address] [place] [address] PCP - General Internal Medicine 01/30/23 Artificial [employer] 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 Relationship Specialty Start Date End Date Martir Herbert MD [address] [place] [address] [place] [address] PCP - ACO Reach 02/15/23 Martir Herbert MD [address] [place] [address] [place] [address] PCP - General Internal Medicine 01/30/23 Artificial [employer] 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 Relationship Specialty Start Date End Date Martir Herbert MD [address] [place] [address] [place] [address] PCP - ACO Reach 02/15/23 Martir Herbert MD [address] [place] [address] [place] [address] PCP - General Internal Medicine 01/30/23 Artificial [employer] 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 Relationship Specialty Start Date End Date Martir Herbert MD [address] [place] [address] [place] [address] PCP - ACO Reach 02/15/23 Martir Herbert MD [address] [place] [address] [place] [address] PCP - General Internal Medicine 01/30/23 Artificial [employer] 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 Relationship Specialty Start Date End Date Martir Herbert MD [address] [place] [address] [place] [address] PCP - ACO Reach 02/15/23 Martir Herbert MD [address] [place] [address] [place] [address] PCP - General Internal Medicine 01/30/23 Goals [...] prosecute any alcohol or drug abuse patient.[facility] the event this information is protected by the Federal Confidentiality of Alcohol and Drug Abuse Patient Records regulations: The Federal rules restrict any use of the information to criminally investigate or prosecute any alcohol or drug abuse patient.[facility] the event this information is protected by the Federal Confidentiality of Alcohol and Drug Abuse Patient Records regulations: The Federal rules restrict any use of the information to criminally investigate or prosecute any alcohol or drug abuse patient.[facility] the event this information is protected by the Federal Confidentiality of Alcohol and Drug Abuse Patient Records regulations: The Federal rules restrict any use of the information to criminally investigate or prosecute any alcohol or drug abuse patient.[facility] the event this information is protected by the Federal Confidentiality of Alcohol and Drug Abuse Patient Records regulations: The Federal rules restrict any use of the information to criminally investigate or prosecute any alcohol or drug abuse patient.[facility] the event this information is protected by the Federal Confidentiality of Alcohol and Drug Abuse Patient Records regulations: The Federal rules restrict any use of the information to criminally investigate or prosecute any alcohol or drug abuse patient.[facility] the event this information is protected by the Federal Confidentiality of Alcohol and Drug Abuse Patient Records regulations: The Federal rules restrict any use of the information to criminally investigate or prosecute any alcohol or drug abuse patient.[facility] the event this information is protected by the Federal Confidentiality of Alcohol and Drug Abuse Patient Records regulations: The Federal rules restrict any use of the information to criminally investigate or prosecute any alcohol or drug abuse patient.[facility] the event this information is protected by the Federal Confidentiality of Alcohol and Drug Abuse Patient Records regulations: The Federal rules restrict any use of the information to criminally investigate or prosecute any alcohol or drug abuse patient.[facility] Reason for Visit (unrecogniz ed section and content) Reason Comments Constipation Rectal Bleeding Future Appointment Reason Comments Appointment Reason Comments Medicare Annual Wellness Visit Subsequen t Results Lab results Med Refill Lisinopril, omega 3, simvastain,lasix--optum rx FOR RECORDS PERTAINING TO PATIENTS WHO ARE [...] BE BASED ON THE PRIMARY CLINICAL RECORDS. [employer] [facility]. provides no warranty or guarantee of the accuracy or completeness of information in this document.
[2025-01-01 07:40] LABS: Erythrocyte Sedimentation Rate 10 mm/hr (<=20)
[2025-01-01 09:44] LABS: C Reactive Protein <0.50 mg/dL (<=0.50)
== END 2025-01-01 07:27 | disposition home or self-care (01) ==
LOC: LAB 07:26
PROVIDERS: PCP Internal Medicine; Visit Provider Internal Medicine Rheumatology
DX: M31.6 Other giant cell arteritis (principal); M19.90 Unspecified osteoarthritis, unspecified site; Z51.81 Encounter for therapeutic drug level monitoring
CPT/HCPCS: 36415; 85652; 86140

== ENCOUNTER 2025-03-24 07:25 | Outpatient (OUT) | payer MEDICARE, OTHER, SELFPAY ==
--- OUTSIDE RECORDS SUMMARY | 2015-08-18 05:30 | XMS_ITS | Continuity of Care Document ---
Author Organization [facility] Address [address] [place] [address] Phone Care Team Providers Care Auditor Medical Claims Name Role Phone Theo Del Castillo Unavailable Unavailable Procedures Procedure Date Admin influenza virus vac FLU VACC PRSV FREE INC ANTIG Admin influenza virus vac FLU VACC PRSV FREE INC ANTIG Admin influenza virus vac FLU VACC PRSV FREE INC ANTIG FLU VACC PRSV FREE INC ANTIG OFFICE/OUTPATIENT VISIT, [facility] Admin influenza virus vac FLU VACC PRSV FREE INC ANTIG Admin influenza virus vac Advance Directives Directive Yes / No Effective Date File Name No Information Encounters Encounter Description Practice Location Reason(s) For Visit Diagnoses Date Provider Providers Copied on Encounter [facility], [address] [place] [address], [id number], tel:[phone] [facility] No Information Yanet Young. [address], [place], [id number], [place]. tel:[phone] OFFICE/OUTPATI ENT VISIT, [facility], [address], [place], [id number], [place] tel:[phone] [facility] No Information Yanet Young. [address], [place], [id number], [place]. tel:[phone] [facility], [address], [place], [id number], [place] tel:[phone] [facility] No Information Alexarodri Young. [address], [place], [id number], [place]. tel:[phone] [facility], [address], [place], [id number], tel:[phone] Flu No Information Yanet Young. [address], [place], [id number], [place]. tel:[phone] Family History Family Member Type Diagnosis Age At Onset No Information Immunizations Vaccine Date Status Comments Influenza, high dose seasonal administered Source: New Immuniza tion Record Flu (High Dose) administered Source: New Immunization Record Payers Payer name Insurance type Covered alliance party ID Authoriza tion(s) Medicare [employer] [id number] Medicare [employer] [id number] Social History Type Description Quantity Date Captured Comments Sex Male Smoking Status No Information Chief Complaint And Reason For Visit No Information Reason For Referral Reason For Referral No Information History Of Present Illness Encounter Date Complaint History Of Prese nt Illness No Information Functional Status Date Functional Assessmen t No Information Instructions Date Instruction Additional Infor mation No Information Assessments Type Assessment Date No Information Patient Care Teams Name Effective Dates (start - stop) Status Members No Information
--- OUTSIDE RECORDS SUMMARY | 2025-03-24 07:28 | XMS_ITS | Encounter Summary ---
Author Organization [facility] Address [address] [place] [address] Care Team Providers Care Horser Up Name Role Phone Martir Herbert MD Unavailable [phone] Martir Herbert MD Primary Care Provider [phone] Encounter Details Date Type Department Care Team (Late st Contact Info) Description 09/06/2023 Abstract [facility] [address] [facility] [address] [place] [phone] Martir Herbert MD [address] [facility] 110 [place] [address] Social History Tobacco Use Types Packs/Day Years Used Date Smoking Tobacco: Never Assessed Sex and Gender Information Value Date Recorded Sex Assigned at Not on file Legal Sex Male 7:03 PM EDT Gender Identity Not on file Sexual Orientation Not on file documented as of this encounter Plan of Treatment Upcoming Encounters Date Type Department Care Team (Late st Contact Info) Description 05/28/2025 8:30 AM EDT Office Visit [facility] [address] [place] [address] [place] [address] Martir Herbert MD [address] [facility] [address] [place] [address] documented as of this encounter Visit Diagnoses Not on filedocumented in this encounter Care Teams Horser Up Relationship Specialty Start Date End Date Martir Herbert MD [address] [facility] [address] [place] [address] PCP - ACO Reach 02/15/23 Martir Herbert MD 112 [facility] [address] [place] [address] PCP - General Internal Medicine 01/30/23 documented as of this encounter
--- OUTSIDE RECORDS SUMMARY | 2025-03-24 07:28 | XMS_ITS | Encounter Summary ---
Author Organization [facility] Address [address] [place] [address] Care Team Providers Care Therapist'S Assistant Name Role Phone Martir Herbert MD Unavailable [phone] Martir Herbert MD Primary Care Provider [phone] Encounter Details Date Type Department Care Team (Late st Contact Info) Description 11/21/2024 Abstract [facility] [address] [facility] 110 [place] [id number] Martir Herbert MD [address] [facility] 110 [place] [address] Social History Tobacco Use Types Packs/Day Years Used Date Smoking Tobacco: Never Smokeless Tobacco: Never PHQ-2 Answer Date Recorded Patient Health Questionnaire-2 Score 0 11/21/2024 Sex and Gender Information Value Date Recorded Sex Assigned at Not on file Legal Sex Male 7:03 PM EDT Gender Identity Not on file Sexual Orientation Not on file documented as of this encounter Functional Status * Over the past 2 weeks, how often have you been bothered by any of the following problems? Question Answer Date of Assessment Author Little interest or pleasure in doing things Not at all 11/21/2024 8:00 AM [employer]co [employer] N Feeling down, depressed, or hopeless Not at all 11/21/2024 8:00 AM [employer] N Patient Health Questionnaire -2 Score 0 11/21/2024 8:00 AM [employer] N documented as of this encounter Plan of Treatment Upcoming Encounters Date Type Department Care Team (Late st Contact Info) Description 05/28/2025 8:30 AM EDT Office Visit [facility] [address] [facility] [address] [place] [address] Martir Herbert MD [address] [facility] [address] [place] [address] documented as of this encounter Visit Diagnoses Not on filedocumented in this encounter Care Teams Therapist'S Assistant Relationship Specialty Start Date End Date Martir Herbert MD [address] [facility] [address] [place] [address] PCP - ACO Reach 02/15/23 Martir Herbert MD [address] [facility] [address] [place] [address] PCP - General Internal Medicine 01/30/23 documented as of this encounter
--- OUTSIDE RECORDS SUMMARY | 2025-03-24 07:28 | XMS_ITS | Encounter Summary ---
Author Organization [facility] Address [address] [place] [address] Care Team Providers Care Core Laying Machine Operator Name Role Phone Martir Herbert MD Unavailable [phone] Martir Herbert MD Primary Care Provider [phone] Encounter Details Date Type Department Care Team (Late Contact Info) Description 11/21/2023 Abstract [facility] [address] [facility] [address] [place] [phone] Martir Herbert MD [address] [facility] 110 [place] [address] Social History Tobacco Use Types Packs/Day Years Used Date Smoking Tobacco: Never Smokeless Tobacco: Never PHQ-2 Answer Date Recorded Patient Health Questionnaire-2 Score 0 11/14/2023 Sex and Gender Information Value Date Recorded Sex Assigned at Not on file Legal Sex Male 7:03 PM EDT Gender Identity Not on file Sexual Orientation Not on file documented as of this encounter Plan of Treatment Upcoming Encounters Date Type Department Care Team (Late st Contact Info) Description 05/28/2025 8:30 AM EDT Office Visit [facility] [address] [facility] [address] [place] [address] Martir Herbert MD [address] [facility] [address] [place] [address] documented as of this encounter Visit Diagnoses Not on filedocumented in this encounter Care Teams Core Laying Machine Operator Relationship Specialty Start Date End Date Martir Herbert MD [address] [facility] [address] [place] [address] PCP - ACO Reach 02/15/23 Martir Herbert MD [address] [facility] [address] [place] [address] PCP - General Internal Medicine 01/30/23 documented as of this encounter
--- OUTSIDE RECORDS SUMMARY | 2025-03-24 07:28 | XMS_ITS | Encounter Summary ---
Author Organization [facility] Address [address] [place] [address] Care Team Providers Care Nuclear Weapons Specialist Name Role Phone Martir Herbert MD Unavailable [phone] Martir Herbert MD Primary Care Provider [phone] Encounter Details Date Type Department Care Team (Late st Contact Info) Description 07/20/2023 Clinisync Result Encounter [facility] External Department Unsolicited Provider, Generic External Data Social History Tobacco Use Types Packs/Day Years [...] EDT Office Visit [facility] 112 [facility] 110 [place] [address] Martir Herbert MD 112 [facility] 110 [place], [place] [id number] documented as of this encounter Procedures Procedure Name Priority Date/Time Associated Diagnosis Comments XR CHEST 2V 07/20/2023 7:28 AM EDT documented in this encounter Results * XR CHEST 2V (07/20/2023 7:28 AM EDT) Anatomical Region Laterality Modality Other 07/20/2023 7:28 AM EDT Narrative 07/20/2023 7:28 AM EDT The [address] [address] XRay Report Signed Patient: JOSE ASENCIO MR#: [id number] : 1940 Acct:[id number] Age/Sex: 82 / M ADM Date: 07/19/23 Loc: [facility] Attending Dr: Abran Pickering M.D. Ordering Physician: Abran Pickering M.D. Date of Service: 07/19/23 Procedure(s): XR chest 2V Accession Number(s): [id number] cc: MARTIR HERBERT ; Abran Pickering M.D. The [address] [address] Patient Name: JOSE ASENCIO MRN: [id number] date: 1940 Sex: M Assigned Patient Location: [facility] Current Patient Location: Accession/Order Number: [id number] Exam Date: 07/19/2023 09:45 Report Date: 07/20/2023 07:28 At the request of: ABRAN PICKERING Procedure: XR chest 2V EXAMINATION: XR chest 2V HISTORY: Preop exam COMPARISON: No relevant comparison available. FINDINGS: LUNGS: No significant pulmonary parenchymal abnormalities. VASCULATURE: No increased pulmonary vasculature. PLEURA: No pneumothorax, effusion, or pleural thickening. CARDIAC: No cardiomegaly or cardiac silhouette abnormality. MEDIASTINUM: No visible mass or adenopathy. BONES: Mild grade 1 retrolisthesis of approximately T12 and L1 vertebral bodies. No compression fractures. OTHER: Negative. XR/XR chest 2V IMPRESSION: 1. No acute cardiopulmonary process or appreciable significant chronic interstitial changes. Electronically authenticated by: STEVEN TELLEZ Date: 07/20/2023 07:28 Dictated By: Steven Tellez M.D. Signed By: 07/20/23729 DD/ 7 TD/TT: Body Mechanic Apprentice: Procedure Note Radiology, Radiologist, - 07/20/[address] [address] XRay Report Signed Patient: JOSE ASENCIO JMR#: [id number] : 1940cct:[id number] Age/Sex: 82 / MADM Date: 07/19/23 Loc: [facility] Attending Dr: Abran Pickering M.D. Ordering Physician: Abran Pickering M.D. Date of Service: 07/19/23 Procedure(s): XR chest 2V Accession Number(s): [id number] cc: MARTIR HERBERT ; Abran Pickering M.D. [place] [id number] Patient Name: JOSE ASENCIO MRN: [id number] date: 1940 Sex: M Assigned Patient Location: [facility] Current Patient Location: Accession/Order Number: [id number] Exam Date: 07/19/2023 09:45 Report Date: 07/20/2023 07:28 At the request of: ABRAN PICKERING Procedure: XR chest 2V EXAMINATION: XR chest 2V HISTORY: Preop exam COMPARISON: No relevant comparison available. FINDINGS: LUNGS: No significant pulmonary parenchymal abnormalities. VASCULATURE: No increased pulmonary vasculature. PLEURA: No pneumothorax, effusion, or pleural thickening. CARDIAC: No cardiomegaly or cardiac silhouette abnormality. MEDIASTINUM: No visible mass or adenopathy. BONES: Mild grade 1 retrolisthesis of approximately T12 and L1 vertebral bodies. No compression fractures. OTHER: Negative. XR/XR chest 2V IMPRESSION: 1. No acute cardiopulmonary process or appreciable significant chronic interstitial changes. Electronically authenticated by: STEVEN TELLEZ Date: 07/20/2023 07:28 Dictated By: Steven Tellez M.D. Signed By:07/20/23729 DD/ 7 TD/TT: Body Mechanic Apprentice: Generic External Data Provider [facility] Final Result documented in this encounter Visit Diagnoses Not on filedocumented in this encounter Care Teams Nuclear Weapons Specialist Relationship Specialty Start Date End Date Martir Herbert MD [address] [facility] 110 [place] [address] PCP - ACO Reach 5/25/23 Martir Herbert MD 112 [facility] 110 [place] [address] PCP - General Internal Medicine 01/30/23 documented as of this encounter
--- OUTSIDE RECORDS SUMMARY | 2025-03-24 07:28 | XMS_ITS | Encounter Summary ---
Author Organization [facility] Address [address] [place] [address] Care Team Providers Care Healthcare Network Pricing Consultant Name Role Phone Martir Herbert MD Unavailable Martir Herbert MD Primary Care Provider [phone] Encounter Details Date Type Department Care Team (Late Contact Info) Description 12/17/2023 Abstract [facility] [address] [facility] 110 [place] [phone] Martir Herbert MD [address] [facility] 110 [place] [address] Social History Tobacco Use Types Packs/Day Years [...] Visit [facility] [address] [facility] 110 [place] [address] Martir Herbert MD [address] [facility] 110 [place] [address] documented as of this encounter Visit Diagnoses Not on filedocumented in this encounter Care Teams Healthcare Network Pricing Consultant Relationship Specialty Start Date End Date Martir Herbert MD [address] [facility] 110 [place] [address] PCP - ACO Reach 02/15/23 Martir Herbert MD [address] [facility] 110 [place] [address] PCP - General Internal Medicine 01/30/23 documented as of this encounter
--- OUTSIDE RECORDS SUMMARY | 2025-03-24 07:28 | XMS_ITS | Encounter Summary ---
Author Organization [facility] Address [address] [place] [address] Care Team Providers Care It Project Coordinator Name Role Phone Martir Herbert MD Unavailable [phone] Martir Herbert MD Primary Care Provider [phone] Encounter Details Date Type Department Care Team (Late st Contact Info) Description 07/19/2023 Abstract [facility] [address] [facility] 110 [place] [address] Martir Herbert MD [address] [facility] 110 [place] [address] Social History Tobacco Use Types Packs/Day Years [...] FM [address] [place] [address] [place] [address] Martir Herbert MD [address] [facility] 110 [place] [address] documented as of this encounter Visit Diagnoses Not on filedocumented in this encounter Care Teams It Project Coordinator Relationship Specialty Start Date End Date Martir Herbert MD [address] [facility] 110 [place] [address] PCP - ACO Reach 02/15/23 Martir Herbert MD 112 [facility] 110 [place] [address] PCP - General Internal Medicine 01/30/23 documented as of this encounter
--- OUTSIDE RECORDS SUMMARY | 2025-03-24 07:28 | XMS_ITS | Encounter Summary ---
Author Organization [facility] Address [address] [place] [address] Care Team Providers Care Trauma Registrar Name Role Phone Martir Herbert MD Unavailable [phone] Martir Herbert MD Primary Care Provider [phone] Encounter Details Date Type Department Care Team (Late st Contact Info) Description 09/13/2023 Abstract [facility] [address] [facility] 110 [place] [phone] Martir Herbert MD [address] [facility] 110 [place] [address] Social History Tobacco Use Types Packs/Day Years [...] FM [address] [place] [address] [place] [address] Martir Herbert MD [address] [facility] 110 [place] [address] documented as of this encounter Visit Diagnoses Not on filedocumented in this encounter Care Teams Trauma Registrar Relationship Specialty Start Date End Date Martir Herbert MD [address] [facility] 110 [place] [address] PCP - ACO Reach 02/15/23 Martir Herbert MD 112 [facility] 110 [place] [address] PCP - General Internal Medicine 01/30/23 documented as of this encounter
--- OUTSIDE RECORDS SUMMARY | 2025-03-24 07:28 | XMS_ITS | Clinical Summary ---
Author Organization [facility] Address [address] [place] [address] Phone Care Team Providers Care Surgical Elastic Knitter Name Role Phone Martir Herbert MD Primary Care Provider [phone] Allergies Active Allergy Reactions Criticality Noted Date Comments Penicillins Rash Low 08/06/2023 Sulfa (Sulfonamide Antibiotics) Rash Low 07/25 Medications omega-3 acid ethyl esters (Lovaza) 1 gram capsule Take 1 capsule (1 g) by mouth. Take 2 in the AM 1 in the PM Active simvastatin (Zocor) 20 mg tablet Take 1 tablet (20 mg) by mouth once daily at bedtime. Active lisinopril 10 mg tablet Take 1 tablet (10 mg) by mouth once daily. Active calcium citrate (Calcitrate) 200 mg (950 mg) tablet Take 1 tablet (200 mg) by mouth once daily. Active cholecalciferol (Vitamin D3) 25 MCG (1000 UT) tablet Take 1 tablet (1,000 Units) by mouth once daily. Active aspirin 81 mg EC tablet Take 1 tablet (81 mg) by mouth once daily. Active polyethylene glycol 3350 (CLEARLAX ORAL) Take 1 Capful by mouth once daily. Active lactobacillus combination no.4 (Probiotic) 3 billion cell capsule Take 1 capsule by mouth once daily. Active vitamins A,C,K-uqfx-dqapc r 2,148 mcg-113 mg-45 mg-17.4mg tablet Take 1 tablet by mouth once daily. Active predniSONE (Deltasone) 20 mg tablet Take 1 tablet (20 mg) by mouth 3 times a day. Active Active Problems Problem Noted Date Diagnosed Date Encounter to discuss test results 12/17/2023 BMI 28.0-28.9,adult 12/17/2023 Never smoked tobacco 12/17/2023 Nonrheumatic aortic valve stenosis 12/17/2023 Pre-op examination 08/06/2023 Resolved Problems Problem Noted Date Diagnosed Date Resolved Date Abnormal echocardiogram 12/17/202311/23 Family History Medical History Relation Name Comments No Known Problems Brother Heart disease Father Brain cancer Mother No Known Problems Sister Relation Name Status Comments Brother Father Mother Sister Social History Tobacco Use Types Packs/Day Years Used Date Smoking Tobacco: Never Smokeless Tobacco: Never Alcohol Use Standard Drinks/Week Comments Never 0 (1 standard drink = 0.6 oz pur e alcohol) Sex and Gender Information Value Date Recorded Sex Assigned at Not on file Legal Sex Male 9:13 AM EDT Gender Identity Not on file Sexual Orientation Not on file Last Filed Vital Signs Vital Sign Reading Time Taken Comments Blood Pressure 134/68 12/17/2023 9:01 AM EDT Pulse 52 12/17/2023 9:01 AM EDT Temperature - - Respiratory Rate - - Oxygen Saturation - - Inhaled Oxygen Concentration - - Weight 88.5 kg (195 lb) 12/17/2023 9:01 AM EDT Height 175.3 cm (5' 9 ) 12/17/2023 9:01 AM EDT Body Mass Index 28.8 12/17/2023 9:01 AM EDT Plan of Treatment Health Maintenance Due Date Last Done Comments Medicare Annual Wellness Visit (AWV) 1940 RSV High Risk: (Elderly (60+) or Population) (1 - 1-dose 75+ series) 2016 COVID-19 Vaccine ( season) 2024 Influenza Vaccine (Season Ended) 2025 07/31/2023, 08/13/2022, 06/25/2021, Additional history exists Lipid Panel 11/16/2028 11/16/2023 DTaP/Tdap/Td Vaccines (2 - Td or Tdap) 09/19/2031 09/19/2021 Pneumococcal Vaccine Completed 07/02/2019, 10/05/19 10 Zoster Vaccines Completed 12/18/2021, 08/25, 07/01/2013 HIB Vaccines Aged Out No longer eligi ble based on patient's age to complete this topic HPV Vaccines (No Doses Required) Completed Hepatitis A Vaccines Aged Out No long er eligible based on patient's age to complete this topic Hepatitis B Vaccines Aged Out No long er eligible based on patient's age to complete this topic IPV Vaccines Aged Out No longer eligi ble based on patient's age to complete this topic Meningococcal Vaccine Aged Out No caro lonnie eligible based on patient's age to complete this topic Rotavirus Vaccines Aged Out No longer eligible based on patient's age to complete this topic Insurance [facility] MEDICARE RAILROAD [facility] MEDICARE RAILROAD Care Teams Surgical Elastic Knitter Relationship Specialty Start Date End Date Martir Herbert MD 112 [facility] 110 [place] [address] PCP - General Internal Medicine 08/06/23
--- OUTSIDE RECORDS SUMMARY | 2025-03-24 07:28 | XMS_ITS | Encounter Summary ---
Author Organization [facility] Address [address] [place] [address] Care Team Providers Care Vice President Of Procurement Name Role Phone Martir Herbert MD Unavailable [phone] Martir Herbert MD Primary Care Provider [phone] Encounter Details Date Type Department Care Team (Late st Contact Info) Description 09/07/2023 Orders Only [facility] [address] [facility] 110 [place] [address] A, Unknown Practice [address] [place], [place] [address] Social History Tobacco Use Types Packs/Day Years [...] CI FM [address] [facility] 110 [place] [address] Martir Herbert MD [address] [facility] 110 [place] [address] documented as of this encounter Procedures Procedure Name Priority Date/Time Associated Diagnosis Comments XR PELVIS 1-2 VIEWS Routine 09/06/2023 9:42 AM EST documented in this encounter Results * XR pelvis 1 or 2 views (09/06/2023 9:42 AM EST) Anatomical Region Laterality Modality Body, Pelvis Radiographic Margot ging us Unknown Practice A IMG XR PROCEDURES Final Resul t documented in this encounter Visit Diagnoses Not on filedocumented in this encounter Care Teams Vice President Of Procurement Relationship Specialty Start Date End Date Martir Herbert MD [address] [facility] 110 [place] [address] PCP - ACO Reach 02/15/23 Mratir Herbert MD [address] [facility] 110 [place] [address] PCP - General Internal Medicine 01/30/23 documented as of this encounter
--- OUTSIDE RECORDS SUMMARY | 2025-03-24 07:28 | XMS_ITS | Encounter Summary ---
Author Organization [facility] Address [address] [place] [address] Care Team Providers Care Pallet Assembler Name Role Phone Martir Herbert MD Unavailable [phone] Martir Herbert MD Primary Care Provider [phone] Encounter Details Date Type Department Care Team (Late Contact Info) Description 04/14/2024 Abstract [facility] [address] [facility] 110 [place] [phone] Martir Herbert MD [address] [facility] 110 [place] [address] Social History Tobacco Use Types Packs/Day Years [...] Visit [facility] [address] [facility] 110 [place] [address] Martir Herbert MD [address] [facility] 110 [place] [address] documented as of this encounter Visit Diagnoses Not on filedocumented in this encounter Care Teams Pallet Assembler Relationship Specialty Start Date End Date Martir Herbert MD [address] [facility] 110 [place] [address] PCP - ACO Reach 02/15/23 Martir Herbert MD [address] [facility] 110 [place] [address] PCP - General Internal Medicine 01/30/23 documented as of this encounter
--- OUTSIDE RECORDS SUMMARY | 2025-03-24 07:28 | XMS_ITS | Encounter Summary ---
Author Organization [facility] Address [address] [place] [address] Care Team Providers Care Staffing Account Manager Name Role Phone Martir Herbert MD Unavailable [phone] Martir Herbert MD Primary Care Provider [phone] Encounter Details Date Type Department Care Team (Late Contact Info) Description 12/19/2023 Abstract [facility] [address] [facility] 110 [place] [phone] Martir Herbert MD 112 [place] 110 [place] [address] Social History Tobacco Use Types Packs/Day Years [...] Visit [facility] [address] [facility] 110 [place] [address] Martir Herbert MD [address] [facility] 110 [place] [address] documented as of this encounter Visit Diagnoses Not on filedocumented in this encounter Care Teams Staffing Account Manager Relationship Specialty Start Date End Date Martir Herbert MD [address] [facility] 110 [place] [address] PCP - ACO Reach 02/15/23 Martir Herbert MD [address] [facility] 110 [place] [address] PCP - General Internal Medicine 01/30/23 documented as of this encounter
--- OUTSIDE RECORDS SUMMARY | 2025-03-24 07:28 | XMS_ITS | Encounter Summary ---
Author Organization [facility] Address [address] [place] [address] Care Team Providers Care Striper Name Role Phone Martir Herbert MD Unavailable [phone] Martir Herbert MD Primary Care Provider [phone] Encounter Details Date Type Department Care Team (Late Contact Info) Description 05/14/2024 Orders Only [facility] [address] [facility] 110 [place] [address] Judy Nelson LPN [address] [place] [address] Vision changes; Acute intractable headache, unspecified headache type Social History Tobacco Use Types Packs/Day Years [...] CI FM [address] [facility] [address] [place] [address] Martir Herbert MD [address] [facility] 110 [place] [address] documented as of this encounter Visit Diagnoses Diagnosis Vision changes Acute intractable headache, unspecified headache type documented in this encounter Care Teams Striper Relationship Specialty Start Date End Date Martir Herbert MD [address] [facility] 110 [place] [address] PCP - ACO Reach 02/15/23 Martir Herbert MD [address] [facility] 110 [place] [address] PCP - General Internal Medicine 01/30/23 documented as of this encounter
--- OUTSIDE RECORDS SUMMARY | 2025-03-24 07:28 | XMS_ITS | Clinical Summary ---
Author Organization [facility] Address [address] [place] [address] Care Team Providers Care Waste Oil Pumper Name Role Phone Martir Herbert MD Unavailable [phone] Martir Herbert MD Primary Care Provider [phone] Allergies Active Allergy Reactions Criticality Noted Date Comments Penicillins Hives,Rash,Unknown Medium 02/16/2023 Sulfa Antibiotics Rash Low 02/16/2023 Medications cholecalciferol (Vitamin D-3) 25 MCG (1000 UT) tablet Take 1,000 Units by mouth in the morning. Active aspirin 81 MG EC tablet Take 81 mg by mouth in the morning. 3 Active calcium citrate (Calcitrate) 950 (200 Ca) MG tablet Take 200 mg by mouth in the morning. Active oxybutynin (Ditropan) 5 MG tablet Take 5 mg by mouth at bedtime Active lisinopril 10 MG tabletIndications:B enign essential hypertension Take 1 tablet (10 mg) by mouth in the morning. 90 tablet 3 5 Active omega-3 acid ethyl esters (Lovaza) 1 g capsuleIndications: Mixed hyperlipidemia TAKE 1 CAPSULE BY MOUTH IN THE MORNING AND 1 CAPSULE BY MOUTH BEFORE BEDTIME 180 capsule 3 5 Active simvastatin (Zocor) 20 MG tabletIndications:M ixed hyperlipidemia Take 1 tablet (20 mg) by mouth in the morning. 90 tablet 3 5 Active furosemide (Lasix) 20 MG tabletIndications:L ocalized edema Take 1 tablet (20 mg) by mouth Daily 90 tablet 3 5 11/21/19 26 Active Active Problems Problem Noted Date Diagnosed Date Temporal arteritis 12/20/2023 Aortic stenosis, moderate 12/06/2023 Chronic folliculitis 11/12/2023 Degenerative joint disease of hand, right 2023 Elevated PSA 11/12/2023 Left inguinal hernia 11/12/2023 Overweight with body mass index (BMI) 25.0-29.9 11/12/2023 Urinary retention 11/12/2023 Malignant neoplasm of prostate 10/11/2023 Benign essential hypertension 05/28/2023 Mixed hyperlipidemia 05/28/2023 Resolved Problems Problem Noted Date Diagnosed Date Resolved Date Benign enlargement of prostate 11/12/2023 11/14/2023 Prostate nodule 11/12/2023 11/14/2023 Frequent urination 11/12/2023 Benign prostatic hyperplasia without lower urinary tract symptoms 10/04/2009 11/14/2023 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 Encounters Date Type Department Care Team Description 01/01/2025 Clinisync Result Encounter [facility] External Department Unsolicited Provider, Generic External Data from Last 3 Months Immunizations Immunization Administration Dates Next Due Influenza, High Dose Seasona l, Preservative Free 07/04/2024,07/03/2020,06/21/2017,08/18 Influenza, Seasonal, Quadriv alent, Adjuvanted 07/31/2023,08/13/2022,06/25/2021 Influenza, seasonal, injectable 07/01/2013 Influenza, seasonal, injecta ble, preservative free 06/23/2014 Influenza, trivalent, adjuvanted 07/02/2019,1002/2018 Pneumococcal Conjugate PCV 13 07/02/2019 Pneumococcal Polysaccharide PPSV23 10/05/2009 RSV, recombinant, protein davidson bunit RSVpreF, adjuvant reconstitu, 120mcg/0.5mL, PF (Arexvy) 11/16/2023 Tdap 09/19/2021 Zoster, Recombinant 12/18/2021,09/21/2021 Zoster, live 07/01/2013 Family History Medical History Relation Name Comments Heart disease Father Cancer Mother Relation Name Status Comments Father Mother Social History Tobacco Use Types Packs/Day Years Used Date Smoking Tobacco: Never Smokeless Tobacco: Never Tobacco Cessation:Counseling Given: Not Answered PHQ-2 Answer Date Recorded Patient Health Questionnaire-2 Score 0 11/21/2024 Sex and Gender Information Value Date Recorded Sex Assigned at Not on file Legal Sex Male 7:03 PM EDT Gender Identity Not on file Sexual Orientation Not on file Last Filed Vital Signs Vital Sign Reading Time Taken Comments Blood Pressure 132/74 11/21/2024 8:28 AM EST Pulse 71 11/21/2024 8:28 AM EST Temperature - - Respiratory Rate - - Oxygen Saturation 96% 11/21/2024 8:28 AM EST Inhaled Oxygen Concentration - - Weight 94.3 kg (208 lb) 11/21/2024 8:28 AM EST Height 174 cm (5' 8.5 ) 11/21/2024 8:28 AM EST Body Mass Index 31.17 11/21/2024 8:28 AM EST Plan of Treatment Upcoming Encounters Date Type Department Care Team (Late st Contact Info) Description 05/28/2025 8:30 AM EDT Office Visit [facility] 112 [facility] 110 [place] [address] Martir Herbert MD 112 [facility] 110 [place] [address] Health Maintenance Due Date Last Done Comments Pneumococcal Vaccine: 65+ Years Completed 9, 10/05/2009 Influenza Vaccine Completed 07/04/2024, , 08/13/2022, Additional history exists Procedures Procedure Name Priority Date/Time Associated Diagnosis Comments ALL C REACTIVE PROTEIN Routine 01/01/2025 7:34 AM EDT ALL SED RATE Routine 01/01/2025 7:34 AM EDT from Last 3 Months Results * ALL SED RATE (01/01/2025 7:34 AM EDT) [facility] SED RATE 10 <=20 mm/hr TB 01/01/2025 7:34 AM EDT 01/01/2025 7:35 AM EDT Narrative [facility] - 01/01/2025 7:40 AM EDT us Generic External Data Provider [facility] F inal Result [facility] * ALL C REACTIVE PROTEIN (01/01/2025 7:34 AM EDT) C REACTIVE PROTEIN <0.50 <=0.50 mg/dL [facility] 01/01/2025 7:34 AM EDT 01/01/2025 7:35 AM EDT Narrative [facility] - 01/01/2025 9:47 AM EDT us Generic External Data Provider [facility] F inal Result [facility] from Last 3 [place]ths [place] [address] [facility] Care Teams Waste Oil Pumper Relationship Specialty Start Date End Date Martir Herbert MD [address] [place] [address] PCP - ACO Reach 02/15/23 Martir Herbert MD 112 [facility] 110 [place] [address] PCP - General Internal Medicine 01/30/23
--- OUTSIDE RECORDS SUMMARY | 2025-03-24 07:28 | XMS_ITS | Encounter Summary ---
Author Organization [facility] Address [address] [place] [address] Care Team Providers Care Master Carpenter Name Role Phone Martir Herbert MD Unavailable [phone] Martir Herbert MD Primary Care Provider [phone] Encounter Details Date Type Department Care Team (Late st Contact Info) Description 09/20/2023 Abstract [facility] [address] [facility] 110 [place] [address] Martir Herbert MD [address] [facility] 110 [place] [address] Social History Tobacco Use Types Packs/Day Years [...] FM [address] [facility] [address] [place] [address] Martir Herbert MD [address] [facility] 110 [place] [address] documented as of this encounter Visit Diagnoses Not on filedocumented in this encounter Care Teams Master Carpenter Relationship Specialty Start Date End Date Martir Herbert MD [address] [facility] 110 [place] [address] PCP - ACO Reach 02/15/23 Martir Herbert MD 112 [facility] 110 [place] [address] PCP - General Internal Medicine 01/30/23 documented as of this encounter
--- OUTSIDE RECORDS SUMMARY | 2025-03-24 07:28 | XMS_ITS | Encounter Summary ---
Author Organization [facility] Address [address] [place] [address] Care Team Providers Care Residential Tech Name Role Phone Martir Herbert MD Unavailable [phone] Martir Herbert MD Primary Care Provider Encounter Details Date Type Department Care Team (Late Contact Info) Description 01/01/2024 Abstract [facility] [address] [facility] 110 [place] [phone] Martir Herbert MD 112 [facility] 110 [place] [address] Social History Tobacco Use Types Packs/Day Years [...] Visit [facility] [address] [facility] 110 [place] [address] Martir Herbert MD [address] [facility] 110 [place] [address] documented as of this encounter Visit Diagnoses Not on filedocumented in this encounter Care Teams Residential Tech Relationship Specialty Start Date End Date Martir Herbert MD [address] [facility] 110 [place] [address] PCP - ACO Reach 02/15/23 Martir Herbert MD [address] [facility] 110 [place] [address] PCP - General Internal Medicine 01/30/23 documented as of this encounter
--- OUTSIDE RECORDS SUMMARY | 2025-03-24 07:28 | XMS_ITS | Encounter Summary ---
Author Organization [facility] Address [address] [place] [address] Phone Care Team Providers Care Maltster Name Role Phone Martir Herbert MD Primary Care Provider [phone] Encounter Details Date Type Department Care Team (Late st Contact Info) Description 12/06/2023 Scanned Document [facility] [address] [place] [phone] Scanning, Generic Provider Social History Tobacco Use Types Packs/Day Years [...] as of this encounter Plan of Treatment Not on file documented as of this encounter Visit Diagnoses Not on filedocumented in this encounter Additional Health Concerns Assessment Noted Time A fall risk assessment has been complete d for the patient 08/06/2023 11:03 AM EST documented as of this encounter Care Teams Maltster Relationship Specialty Start Date End Date Martir Herbert MD [address] [place] [address] PCP - General Internal Medicine 08/06/23 documented as of this encounter
--- OUTSIDE RECORDS SUMMARY | 2025-03-24 07:28 | XMS_ITS | Encounter Summary ---
Author Organization [facility] Address [address] [place] [address] Care Team Providers Care Rolled Ham Lacer Name Role Phone Martir Herbert MD Unavailable [phone] Martir Herbert MD Primary Care Provider [phone] Encounter Details Date Type Department Care Team (Late st Contact Info) Description 05/29/2023 Abstract [facility] [address] [facility] 110 [place] [address] Martir Herbert MD [address] [facility] 110 [place] [address] Social History Tobacco Use Types Packs/Day Years [...] FM [address] [place] [address] [place] [address] Martir Herbert MD [address] [facility] 110 [place] [address] documented as of this encounter Visit Diagnoses Not on filedocumented in this encounter Care Teams Rolled Ham Lacer Relationship Specialty Start Date End Date Martir Herbert MD [address] [facility] 110 [place] [address] PCP - ACO Reach 02/15/23 Martir Herbert MD 112 [facility] 110 [place] [address] PCP - General Internal Medicine 01/30/23 documented as of this encounter
--- OUTSIDE RECORDS SUMMARY | 2025-03-24 07:28 | XMS_ITS | Encounter Summary ---
Author Organization [facility] Address [address] [place] [address] Care Team Providers Care Oil Well Fishing Tool Operator Name Role Phone Martir Herbert MD Unavailable [phone] Martir Herbert MD Primary Care Provider [phone] Encounter Details Date Type Department Care Team (Late st Contact Info) Description 05/29/2023 Abstract [facility] [address] [facility] 110 [place] [phone] Martir Herbert MD [address] [facility] 110 [place] [address] Social History Tobacco Use Types Packs/Day Years [...] FM [address] [facility] [address] [place] [address] Martir Herbert MD [address] [facility] 110 [place] [address] documented as of this encounter Visit Diagnoses Not on filedocumented in this encounter Care Teams Oil Well Fishing Tool Operator Relationship Specialty Start Date End Date Martir Herbert MD [address] [facility] 110 [place] [address] PCP - ACO Reach 02/15/23 Martir Herbert MD [address] [facility] 110 [place] [address] PCP - General Internal Medicine 01/30/23 documented as of this encounter
--- OUTSIDE RECORDS SUMMARY | 2025-03-24 07:28 | XMS_ITS | Encounter Summary ---
Author Organization [facility] Address [address] [place] [address] Care Team Providers Care Company Laborer Name Role Phone Martir Herbert MD Unavailable [phone] Martir Herbert MD Primary Care Provider [phone] Encounter Details Date Type Department Care Team (Late st Contact Info) Description 12/11/2023 Clinisync Result Encounter [facility] External Department Unsolicited Martir Herbert MD [address] [facility] 110 [place], [place] [id number] Social History Tobacco Use Types Packs/Day Years [...] Office Visit [facility] [address] [facility] 110 [place] [address] Martir Herbert MD [address] [facility] 110 [place] [address] documented as of this encounter Procedures Procedure Name Priority Date/Time Associated Diagnosis Comments CT HEAD/BRAIN WO 12/11/2023 5:50 PM EDT documented in this encounter Results * CT HEAD/BRAIN WO (12/11/2023 5:50 PM EDT) Anatomical Region Laterality Modality Radiographic Margot ging 12/11/2023 5:50 PM EDT Narrative 12/11/2023 5:52 PM EDT [address] [address] [address] Scan Report Signed Patient: JOSE ASENCIO MR#: [id number] : 1940 Acct:[id number] Age/Sex: 83 / M ADM Date: 12/11/23 Loc: Attending Dr: MARTIR HERBERT Ordering Physician: MARTIR HERBERT Date of Service: 12/11/23 Procedure(s): CT head/brain wo con Accession Number(s): [id number] cc: MARTIR HERBERT [place] [id number] Patient Name: JOSE ASENCIO MRN: [id number] date: 1940 Sex: M Assigned Patient Location: Current Patient Location: [place] Accession/Order Number: [id number] Exam Date: 12/11/2023 14:55 Report Date: 12/11/2023 17:50 At the request of: MARTIR HERBERT Procedure: CT head/brain wo con EXAM: CT head/brain wo con HISTORY: vision changes H53.9 COMPARISON: None. TECHNIQUE: Axial CT scans through the head were obtained without IV contrast administration. Dose reduction techniques were achieved by using: automated exposure control and/or adjustment of mA and /or kV according to patient size and/or use of iterative reconstruction technique. FINDINGS: There is no evidence of acute intracranial hemorrhage or abnormal extra-axial fluid collection. No mass effect or midline shift is seen. There is no evidence of large acute territorial infarction. There is no hydrocephalus. The cortical sulci and ventricular system are within normal limits. To the limit of CT, the posterior fossa appears unremarkable. There are mild atherosclerotic calcifications of anterior and posterior circulations. No definite acute fracture is identified. Soft tissues are unremarkable. The visualized orbits show no abnormality. There is partially visualized small air-fluid level within the right maxillary sinus. Partial opacifications of ethmoid air cells are seen. Mastoid air cells are clear. CT/CT head/brain wo con IMPRESSION: No CT evidence of acute intracranial abnormality. Small air-fluid level within right maxillary sinus, consistent with acute sinusitis. Electronically authenticated by: JENNIFER GR Date: 12/11/2023 17:50 Dictated By: JENNIFER GR M.D. Signed By: 12/11/231751 DD/ 49 TD/TT: Applications Consultant: Procedure Note Radiology, Radiologist, MD - 12/11/20[address] [place] [address] CT Scan Report Signed Patient: JOSE ASENCIO R#: [id number] : 1940cct:[id number] Age/Sex: 83 / MADM Date: 12/11/23 Loc: US Attending Dr: MARTIR HERBERT Ordering Physician: MARTIR HERBERT Date of Service: 12/11/23 Procedure(s): CT head/brain wo con Accession Number(s): [id number] cc: MARTIR HERBERT The [place] [id number] Patient Name: JOSE ASENCIO MRN: [id number] date: 1940 Sex: M Assigned Patient Location: Current Patient Location: [place] Accession/Order Number: [id number] Exam Date: 12/11/2023 14:55 Report Date: 12/11/2023 17:50 At the request of: MARTIR HERBERT Procedure: CT head/brain wo con EXAM: CT head/brain wo con HISTORY: vision changes H53.9 COMPARISON: None. TECHNIQUE: Axial CT scans through the head were obtained without IVcontrast administration. Dose reduction techniques were achieved by using:automated exposure control and/or adjustment of mA and /or kV according to patientsize and/or use of iterative reconstruction technique. FINDINGS: There is no evidence of acute intracranial hemorrhage or abnormalextra-axial fluid collection. No mass effect or midline shift is seen. There is no evidence of large acute territorial infarction. There is no hydrocephalus. The cortical sulci and ventricular system are within normal limits. To the limit of CT, the posterior fossa appears unremarkable. There aremild atherosclerotic calcifications of anterior and posterior circulations. No definite acute fracture is identified. Soft tissues are unremarkable.The visualized orbits show no abnormality. There is partially visualized small air-fluid level within the rightmaxillary sinus. Partial opacifications of ethmoid air cells are seen. Mastoid aircells are clear. CT/CT head/brain wo con IMPRESSION: No CT evidence of acute intracranial abnormality. Small air-fluid level within right maxillary sinus, consistent with acute sinusitis. Electronically authenticated by: JENNIFER GR Date: 12/11/2023 17:50 Dictated By: JENNIFER GR M.D. Signed By:12/11/231751 DD/ 49 TD/TT: Applications Consultant: Martir Herbert MD IMG XR PROCEDURES Final Result documented in this encounter Visit Diagnoses Not on filedocumented in this encounter Care Teams Company Laborer Relationship Specialty Start Date End Date Martir Herbert MD [address] [address] PCP - ACO Reach 02/15/23 Martir Herbert MD [address] [address] PCP - General Internal Medicine 01/30/23 documented as of this encounter
--- OUTSIDE RECORDS SUMMARY | 2025-03-24 07:28 | XMS_ITS | Encounter Summary ---
Author Organization [facility] Address [address] [place] [address] Care Team Providers Care Supervisor Wheel Shop Name Role Phone Martir Herbert MD Unavailable [phone] Martir Herbert MD Primary Care Provider [phone] Encounter Details Date Type Department Care Team (Late Contact Info) Description 12/17/2023 Abstract [facility] [address] [facility] 110 [place] [phone] Martir Herbert MD 112 [place] 110 [place] [address] Social History Tobacco Use Types Packs/Day Years [...] Visit [facility] [address] [facility] 110 [place] [address] Martir Herbert MD [address] [facility] 110 [place] [address] documented as of this encounter Visit Diagnoses Not on filedocumented in this encounter Care Teams Supervisor Wheel Shop Relationship Specialty Start Date End Date Martir Herbert MD [address] [facility] 110 [place] [address] PCP - ACO Reach 02/15/23 Martir Herbert MD [address] [facility] 110 [place] [address] PCP - General Internal Medicine 01/30/23 documented as of this encounter
--- OUTSIDE RECORDS SUMMARY | 2025-03-24 07:28 | XMS_ITS | Encounter Summary ---
Author Organization [facility] Address [address] [place] [address] Care Team Providers Care Paper Latcher Name Role Phone Martir Herbert MD Unavailable [phone] Martir Herbert MD Primary Care Provider Encounter Details Date Type Department Care Team (Late Contact Info) Description 12/18/2023 Abstract [facility] [address] [facility] 110 [place] [phone] Martir Herbert MD [address] [facility] 110 [place] [address] Social History Tobacco Use Types Packs/Day Years [...] Visit [facility] [address] [facility] 110 [place] [address] Martir Herbert MD [address] [facility] 110 [place] [address] documented as of this encounter Visit Diagnoses Not on filedocumented in this encounter Care Teams Paper Latcher Relationship Specialty Start Date End Date Martir Herbert MD [address] [facility] 110 [place] [address] PCP - ACO Reach 02/15/23 Martir Herbert MD [address] [facility] 110 [place] [address] PCP - General Internal Medicine 01/30/23 documented as of this encounter
--- OUTSIDE RECORDS SUMMARY | 2025-03-24 07:28 | XMS_ITS | Clinical Summary ---
Author Organization [facility] Address [address] [place], [place] [address] Care Team Providers Care Web Systems Developer Name Role Phone Keon COBIAN MD, Martir Griffin Primary Care Provider [phone] Allergies Active Allergy Reactions Criticality Noted Date Comments Penicillins Rash 02/16/2023 Sulfa (Sulfonamide Antibiotics) Rash 01/23 Medications simvastatin (ZOCOR) 10 mg tablet Take 10 mg by mouth daily at bedtime. 3 Active lisinopril (ZESTRIL) 10 mg tablet 3 Active omega-3 acid ethyl esters (LOVAZA) 1 gram capsule 3 Active calcium citrate (CITRACAL ORAL) Take by mouth. Active Lactobacillus acidophilus (PROBIOTIC ORAL) Take by mouth. Active cholecalciferol, vitamin D3, (VITAMIN D3 ORAL) Take by mouth. Activ e polyethylene glycol 3350 (CLEARLAX ORAL) Take by mouth. Active aspirin, enteric coated (ASPIRIN, ENTERIC COATED) 81 mg EC tablet Take 81 mg by mouth once daily. Active OTC PRODUCT Eye and vision supplement Active predniSONE (DELTASONE) 20 mg tablet Take 60 mg by mouth once daily. Active oxybutynin XL (DITROPAN XL) 5 mg 24 hr tablet Take 5 mg by mouth once daily. Active Active Problems Problem Noted Date Diagnosed Date Malignant neoplasm of prostate 10/11/2023 Family History Medical History Relation Comments Prostate Cancer Brother 1 Prostate Cancer Brother 2 Lung Cancer Mother Relation Status Comments Brother 1 Alive Brother 2 Alive Mother Social History Tobacco Use Types Packs/Day Years Used Date Smoking Tobacco: Never Smokeless Tobacco: Never Tobacco Cessation:Counseling Given: Not Answered Alcohol Use Standard Drinks/Week Comments Not Currently 0 (1 standard drink = 0.6 oz pur e alcohol) PHQ-2 Answer Date Recorded PHQ-2 score 0 04/10/2024 Area Deprivation Index Answer Date Tip rded National Score (1-100), lower number is lower ri sk 53 09/06/2023 State Score (1-10), lower number is lower risk 3 09/06/2023 Data from: https://www.neighborhoodatlas.[facility]/. Last address used for calculation [address] 09/06/2023 Sex and Gender Information Value Date Recorded Sex Assigned at Not on file Legal Sex Male 9:58 AM EST Gender Identity Not on file Sexual Orientation Not on file Last Filed Vital Signs Vital Sign Reading Time Taken Comments Blood Pressure 152/78 04/10/2024 9:29 AM EDT Pulse 71 04/10/2024 9:29 AM EDT Temperature 36.3 C (97.4 F) 04/10/2024 9:29 AM EDT Respiratory Rate 18 04/10/2024 9:29 AM EDT Oxygen Saturation 96% 04/10/2024 9:29 AM EDT Inhaled Oxygen Concentration - - Weight 85.3 kg (188 lb 0.8 oz) 04/10/2024 9:29 A M EDT Height 175.3 cm (5' 9 ) 02/16/2023 8:05 AM EDT Body Mass Index 27.77 02/16/2023 8:05 AM EDT Plan of Treatment Upcoming Encounters Date Type Department Care Team (Late st Contact Info) Description 04/09/2025 9:00 AM EDT Office Visit Radiation Oncology [address] [place] [address] Jc Mendiola MD [address] [place] [address] Followup Health Maintenance Due Date Last Done Comments Anxiety Screening 11/24/1959 Depression Screening 11/24/1959 Diabetes Screening 1986 Medicare Annual Wellness Visit 11/22/2006 Covid-19 Vaccine (2023-2 5 season) 2024 07/31/2023, 08/13/2022, 06/25/2021, Additional history exists Advance Directive Discussion 09/24/2024 Influenza Vaccine (Season Ended) 2025 07/31/2023, 08/13/2022, 08/25/2021, Additional history exists DTaP,Tdap,Td Vaccine (2 - Td or Tdap) 09/19/2031 09/19/2021 Pneumococcal Vaccine: 50+ Completed 07/02/2019, 08/2010 Shingrix Vaccine Completed 12/18/2021, , 07/01/2013 RSV Vaccine Completed 11/16/2023 Insurance MEDICARE Member Subscriber Plan / Payer (Ef fective 2006-Present) Name:Luis M Jose Member ID:[id number] Relation to Subscriber:Self Name:Luis M Jose Subscriber ID:[id number] Payer ID:Not on file Group ID:Not on file Type:Medicare Address: [place] [id number] MEDICARE [facility] Care Teams Web Systems Developer Relationship Specialty Start Date End Date Martir Herbert II, MD 112 [facility] 110 [place] [address] PCP - General Internal Medicine 02/06/23
--- OUTSIDE RECORDS SUMMARY | 2025-03-24 07:28 | XMS_ITS | Encounter Summary ---
Author Organization [facility] Address [address] [place] [address] Care Team Providers Care Refrigeration Service Inspector Name Role Phone Martir Herbert MD Unavailable [phone] Martir Herbert MD Primary Care Provider [phone] Encounter Details Date Type Department Care Team (Late Contact Info) Description 12/19/2023 Abstract [facility] [address] [facility] 110 [place] [address] Martir Herbert MD [address] [facility] 110 [place] [address] Social History Tobacco Use Types Packs/Day Years [...] Visit [facility] FM [address] [facility] 110 [place] [address] Martir Herbert MD [address] [facility] 110 [place] [address] documented as of this encounter Visit Diagnoses Not on filedocumented in this encounter Care Teams Refrigeration Service Inspector Relationship Specialty Start Date End Date Martir Herbert MD [address] [facility] 110 [place] [address] PCP - ACO Reach 02/15/23 Martir Herbert MD [address] [facility] 110 [place] [address] PCP - General Internal Medicine 01/30/23 documented as of this encounter
--- OUTSIDE RECORDS SUMMARY | 2025-03-24 07:28 | XMS_ITS | Encounter Summary ---
Author Organization [facility] Address [address] [place] [address] Care Team Providers Care Green Building Materials Designer Name Role Phone Martir Herbert MD Unavailable [phone] Martir Herbert MD Primary Care Provider [phone] Encounter Details Date Type Department Care Team (Late Contact Info) Description 09/07/2023 Clinisync Result Encounter N[facility]S External Department Unsolicited [...] EDT Office Visit [facility] FM 112 [facility] 110 [place] [address] Martir Herbert MD 112 [facility] 110 [place], [place] [address] documented as of this encounter Procedures Procedure Name Priority Date/Time Associated Diagnosis Comments XR PELVIS 1-2 VIEWS 09/07/2023 8 :55 AM EST documented in this encounter Results * XR pelvis 1 or 2 views (09/07/2023 8:55 AM EST) Anatomical Region Laterality Modality Body, Pelvis Radiographic Margot ging 09/07/2023 8:55 AM EST Narrative 09/07/2023 8:57 AM EST The [address] [address] XRay Report Signed Patient: JOSE ASENCIO MR#: [id number] : 1940 Acct:[id number] Age/Sex: 82 / M ADM Date: 09/06/23 Loc: SURGOUT Attending Dr: Abran Pickering M.D. Ordering Physician: Abran Pickering M.D. Date of Service: 09/06/23 Procedure(s): XR pelvis 1-2V Accession Number(s): [id number] cc: MARTIR HERBERT ; Abran Pickering M.D. The [place] [address] Patient Name: JOSE ASENCIO MRN: [id number] date: 1940 Sex: M Assigned Patient Location: SURGOUT Current Patient Location: Accession/Order Number: [id number] Exam Date: 09/06/2023 09:50 Report Date: 09/07/2023 08:55 At the request of: ABRAN PICKERING Procedure: XR pelvis 1-2V EXAMINATION: XR pelvis 1-2V HISTORY: PROSTATE SEED IMPLANT COMPARISON: No relevant comparison available. FINDINGS: Iodinated contrast opacifies the urinary bladder. Multiple metallic foreign bodies project over the pubic symphysis consistent with prostate seed implantation. XR/XR pelvis 1-2V IMPRESSION: Prostate seed implantation Electronically authenticated by: CHRISTINE VALLES Date: 09/07/2023 08:55 Dictated By: Christine Valles M.D. Signed By: 09/07/23 0857 DD/ 0855 TD/TT: Supervisor Display Fabrication: Procedure Note Radiology, Radiologist, MD - 09/07/[address] [address] XRay Report Signed Patient: JOSE ASENCIO JMR#: [id number] : 1940cct:[id number] Age/Sex: 82 / MADM Date: 09/06/23 Loc: SURGOUT Attending Dr: Abran Pickering M.D. Ordering Physician: Abran Pickering M.D. Date of Service: 09/06/23 Procedure(s): XR pelvis 1-2V Accession Number(s): [id number] cc: MARTIR HERBERT ; Abran Pickering M.D. [address] [address] Patient Name: JOSE ASENCIO MRN: [id number] date: 1940 Sex: M Assigned Patient Location: SURGOUT Current Patient Location: Accession/Order Number: [id number] Exam Date: 09/06/2023 09:50 Report Date: 09/07/2023 08:55 At the request of: ABRAN PICKERING Procedure: XR pelvis 1-2V EXAMINATION: XR pelvis 1-2V HISTORY: PROSTATE SEED IMPLANT COMPARISON: No relevant comparison available. FINDINGS: Iodinated contrast opacifies the urinary bladder. Multiple metallicforeign bodies project over the pubic symphysis consistent with prostate seed implantation. XR/XR pelvis 1-2V IMPRESSION: Prostate seed implantation Electronically authenticated by: CHRISTINE VALLES Date: 09/07/2023 08:55 Dictated By: Christine Valles M.D. Signed By:09/07/23 0857 DD/ 0855 TD/TT: Supervisor Display Fabrication: Generic External Data Provider IMG XR PROCEDURES Final Result documented in this encounter Visit Diagnoses Not on filedocumented in this encounter Care Teams Green Building Materials Designer Relationship Specialty Start Date End Date Martir Herbert MD [address] [facility] 110 [place] [address] PCP - ACO Reach 02/15/23 Martir Herbert MD [address] [facility] 110 [place] [address] PCP - General Internal Medicine 01/30/23 documented as of this encounter
--- OUTSIDE RECORDS SUMMARY | 2025-03-24 07:28 | XMS_ITS | Encounter Summary ---
Author Organization [facility] Address [address] [place] [address] Care Team Providers Care Receptionist Telephone Operator Name Role Phone Martir Herbert MD Unavailable [phone] Martir Herbert MD Primary Care Provider [phone] Encounter Details Date Type Department Care Team (Late Contact Info) Description 12/17/2023 Abstract [facility] [address] [facility] 110 [place] [phone] Martir Herbert MD [address] [facility] 110 [place] [address] Social History Tobacco Use Types Packs/Day Years [...] Visit [facility] [address] [facility] 110 [place] [address] Martir Herbert MD [address] [facility] 110 [place] [address] documented as of this encounter Visit Diagnoses Not on filedocumented in this encounter Care Teams Receptionist Telephone Operator Relationship Specialty Start Date End Date Martir Herbert MD [address] [facility] 110 [place] [address] PCP - ACO Reach 02/15/23 Martir Herbert MD [address] [facility] 110 [place] [address] PCP - General Internal Medicine 01/30/23 documented as of this encounter
--- OUTSIDE RECORDS SUMMARY | 2025-03-24 07:28 | XMS_ITS | Encounter Summary ---
Author Organization [facility] Address [address] [place] [address] Phone Care Team Providers Care Hydrologic Modeler Name Role Phone Martir Herbert MD Primary Care Provider [phone] Encounter Details Date Type Department Care Team (Late st Contact Info) Description 07/24/2023 Scanned Document [facility] [address] [place] [id number] Scanning, Generic Provider Social History Tobacco Use [...] on filedocumented in this encounter Care Teams Hydrologic Modeler Relationship Specialty Start Date End Date Martir Herbert MD [address] [address] PCP - General Internal Medicine 08/06/23 documented as of this encounter
--- OUTSIDE RECORDS SUMMARY | 2025-03-24 07:28 | XMS_ITS | Encounter Summary ---
Author Organization [facility] Address [address] [place] [address] Care Team Providers Care Pairer Odds Name Role Phone Martir Herbert MD Unavailable [phone] Martir Herbert MD Primary Care Provider [phone] Encounter Details Date Type Department Care Team (Late st Contact Info) Description 07/19/2023 Clinisync Result Encounter [facility] External Department Unsolicited [...] EDT Office Visit [facility] 112 [facility] 110 [place] [address] Martir Herbert MD 112 [facility] 110 [place], [place] [phone] documented as of this encounter Procedures Procedure Name Priority Date/Time Associated Diagnosis Comments ECG 12-LEAD 07/19/2023 9:35 AM EDT documented in this encounter Results * ECG 12-LEAD (07/19/2023 9:35 AM EDT) Anatomical Region Laterality Modality Other 07/19/2023 9:35 AM EDT Narrative 07/19/2023 9:35 [place] [address] Electrocardiograph Report Signed Patient: JOSE ASENCIO MR#: [id number] : 1940 Acct:[id number] Age/Sex: 82 / M ADM Date: 07/19/23 Loc: PST Attending Dr: Abran Pickering M.D. Ordering Physician: Abran Pickering M.D. 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 Signed By: 07/21/23 0706 DD/ 0935 TD/TT: Manager Water: Procedure Note Radiology, Radiologist, MD - 07/21/2023 The [place] [id number] Electrocardiograph Report Signed Patient: JOSE ASENCIO JMR#: [id number] : 1940cct:[id number] Age/Sex: 82 / MADM Date: 07/19/23 Loc: PST Attending Dr: Abran Pickering M.D. Ordering Physician: Abran Pickering M.D. 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 Signed By:07/21/23 0706 DD/ 0935 TD/TT: Manager Water: us Generic External Data Provider [facility] Final Result documented in this encounter Visit Diagnoses Not on filedocumented in this encounter Care Teams Pairer Odds Relationship Specialty Start Date End Date Martir Herbert MD 112 [facility] 110 [place] [address] PCP - ACO Reach 02/15/23 Martir Herbert MD [address] [facility] 110 [place] [address] PCP - General Internal Medicine 01/30/23 documented as of this encounter
--- OUTSIDE RECORDS SUMMARY | 2025-03-24 07:28 | XMS_ITS | Encounter Summary ---
Author Organization [facility] Address [address] [place] [address] Care Team Providers Care Online Marketing Director Name Role Phone Martir Herbert MD Unavailable [phone] Martir Herbert MD Primary Care Provider [phone] Encounter Details Date Type Department Care Team (Late st Contact Info) Description 10/11/2023 Abstract [facility] [address] [facility] 110 [place] [phone] Martir Herbert MD [address] [facility] 110 [place] [address] Social History Tobacco Use Types Packs/Day Years [...] FM [address] [facility] [address] [place] [address] Martir Herbert MD [address] [facility] 110 [place] [address] documented as of this encounter Visit Diagnoses Not on filedocumented in this encounter Care Teams Online Marketing Director Relationship Specialty Start Date End Date Martir Herbert MD [address] [facility] [address] [place] [address] PCP - ACO Reach 02/15/23 Martir Herbert MD 112 [facility] 110 [place] [address] PCP - General Internal Medicine 01/30/23 documented as of this encounter
--- OUTSIDE RECORDS SUMMARY | 2025-03-24 07:29 | XMS_ITS | Encounter Summary ---
Author Organization [facility] Address [address] [place] [address] Care Team Providers Care Junior Recruiter Name Role Phone Martir Herbert MD Unavailable [phone] Martir Herbert MD Primary Care Provider [phone] Encounter Details Date Type Department Care Team (Late Contact Info) Description 12/11/2023 Abstract [facility] [address] [facility] 110 [place] [phone] Martir Herbert MD [address] [facility] 110 [place] [address] Social History Tobacco Use Types Packs/Day Years [...] Visit [facility] [address] [facility] 110 [place] [address] Martir Herbert MD [address] [facility] 110 [place] [address] documented as of this encounter Visit Diagnoses Not on filedocumented in this encounter Care Teams Junior Recruiter Relationship Specialty Start Date End Date Martir Herbert MD [address] [facility] 110 [place] [address] PCP - ACO Reach 02/15/23 Martir Herbert MD [address] [facility] 110 [place] [address] PCP - General Internal Medicine 01/30/23 documented as of this encounter
--- OUTSIDE RECORDS SUMMARY | 2025-03-24 07:29 | XMS_ITS | Encounter Summary ---
Author Organization [facility] Address [address] [place] [address] Care Team Providers Care Practical Nurse Clinical Coordinator Name Role Phone Martir Herbert MD Unavailable [phone] Martir Herbert MD Primary Care Provider [phone] Encounter Details Date Type Department Care Team (Late st Contact Info) Description 11/22/2023 Clinisync Result Encounter [facility] External Department Unsolicited Martir Herbert MD [address] [facility] 110 [place], [place] [phone] Social History Tobacco Use Types Packs/Day Years [...] Office Visit [facility] [address] [facility] 110 [place] [address] Martir Herbert MD [address] [facility] [facility] 110 [place] [address] documented as of this encounter Procedures Procedure Name Priority Date/Time Associated Diagnosis Comments CA ECHO DOPPLER COMPLETE 11/22/2023 2:23 PM EST documented in this encounter Results * CA ECHO DOPPLER COMPLETE (11/22/2023 2:23 PM EST) Anatomical Region Laterality Modality Other 11/22/2023 2:23 PM EST Narrative 11/22/2023 2:24 PM EST [address] [address] Cardiology Report Signed Patient: JOSE ASENCIO MR#: [id number] : 1940 Acct:[id number] Age/Sex: 82 / M ADM Date: 11/22/23 Loc: CARD Attending Dr: MARTIR HERBERT Ordering Physician: MARTIR HERBERT Date of Service: 11/22/23 Procedure(s): CA echo doppler complete Accession Number(s): [id number] cc: MARTIR HERBERT Patient Name: JOSE ASENCIO MR#: [id number] : 1940 Exam Date: 11/22/2023 Ordering Doctor: DR MARTIR HERBERT M.D. ECHOCARDIOGRAM REPORT PROCEDURE: CA ECHO DOPPLER COMPLETE INDICATIONS: Heart murmur, hypertension COMPARISON: None. DESCRIPTION: COMPLETE ECHOCARDIOGRAM Real-time transthoracic echocardiography with 2D, M-mode, spectral and color flow Doppler performed. QUALITY: Technical quality was good. 69 , 195#, BSA 2.04 m2 LEFT VENTRICLE: Normal chamber size. Proximal septal hypertrophy (sigmoid septum). LV EF: Global left ventricular systolic function is hyperdynamic; visually estimated ejection fraction is 65 to 70%. No obvious wall motion abnormalities. DIASTOLIC: Unable to assess diastolic dysfunction. ATRIAL SEPTUM: Visually appears intact. LEFT ATRIUM: Mild dilatation. RIGHT ATRIUM: Normal chamber size. RIGHT VENTRICLE: Normal chamber size. Normal right ventricular systolic function. TRICUSPID VALVE: Normal mobility and thickness. No stenosis with trivial regurgitation. Unable to assess right-sided pressures due to lack of measurable tricuspid regurgitation. MITRAL VALVE: Normal mobility and thickness. No evidence of mitral valve stenosis. There is no mitral annular calcification. Trivial mitral regurgitation. AORTIC VALVE: Normal trileaflet appearance. Severely calcified aortic valve with diminished mobility. Doppler velocity suggests moderate aortic valve stenosis. DVI 0.28, SHASHI 1.2 cm2. No aortic regurgitation. AORTIC ROOT: Normal diameter and appearance. PULMONIC VALVE: Normal thickness and mobility. No stenosis. Trivial regurgitation. PERICARDIUM: No evidence of pericardial effusion. IVC: Collapses with inspirations. IVC is normal in size. CONCLUSION: 1. Global left ventricular systolic function is hyperdynamic; visually estimated ejection fraction is 65 to 70% 2. Normal right ventricular size and systolic function 3. The left atrium is mildly dilated 4. Moderate aortic valve stenosis Adult Echocardiography Procedure Report Left Ventricle LVEDD (3.7 - 5.6 cm): 4.78 cm LVESD (2.2 - 4.0 cm): 2.94 cm LVIVS thickness (0.6 - 1.2 cm): 1.43 cm LVPW thickness (0.5 - 1.0 cm): 0.96 cm e': 0.07 m/s E - e': 9.04 LVOT Max Gradient: 2.26 mm[Hg] LVOT Area (cm2): 0.75 m/s Peak Velocity (LVOT): 0.75 m/s Mean Velocity (LVOT): 0.48 m/s LVOT Diameter 2.36 cm Left Atrium LA Volume Index (2D A2C): 38.05 ml/m2 Left Atrium Systolic Dimension: 4.25 cm Mitral Valve MV E to A Ratio: 0.98 Mitral Valve A-Wave Peak Velocity: 0.66 m/s Mitral Valve E-Wave Peak Velocity: 0.65 m/s Right Ventricle Aorta AO Root Diam: 3.65 cm Ascending Ao Diam: 2.46 cm Aortic Valve AoV Area (Peak Roberth): 1.23 cm2, 1.23 cm2 AoV Area (VTI): 1.23 cm2, 1.23 cm2 Peak Velocity(Antegrade Flow): 2.67 m/s Peak Gradient(Antegrade Flow): 28.57 mm[Hg] Mean Velocity(Antegrade Flow): 1.87 m/s Mean Gradient(Antegrade Flow): 15.89 mm[Hg] Velocity Time Integral: 70.58 cm Tricuspid Valve Pulmonic Valve Peak Velocity: 0.81 m/s Peak Gradient: 2.77 mm[Hg], 2.45 mm[Hg] Right Atrium Right Atrium Systolic Pressure: 37.38 ml, 37.38 ml Dictated by: Virgil Crockett M.D. on 11/22/2023 at 14:18 Approved by: Virgil Crockett M.D. on 11/22/2023 at 14:22 Dictated By: Virgil Crockett M.D. Signed By: 11/22/23 1424 DD/ 1423 TD/TT: Assistant Secretary: Procedure Note Radiology, Radiologist, MD - 11/22/2023 [place] [address] Cardiology Report Signed Patient: JOSE ASENCIO JMR#: [id number] : 1940cct:[id number] Age/Sex: 82 / MADM Date: 11/22/23 Loc: CARD Attending Dr: MARTIR HERBERT Ordering Physician: MARTIR HERBERT Date of Service: 11/22/23 Procedure(s): CA echo doppler complete Accession Number(s): [id number] cc: MARTIR HERBERT Patient Name: JOSE ASENCIO MR#: [id number] : 1940 Exam Date: 11/22/2023 Ordering Doctor: DR MARTIR HERBERT M.D. ECHOCARDIOGRAM REPORT PROCEDURE: CA ECHO DOPPLER COMPLETE INDICATIONS: Heart murmur, hypertension COMPARISON: None. DESCRIPTION: COMPLETE ECHOCARDIOGRAM Real-time transthoracic echocardiography with 2D, M-mode, spectral and color flow Dopplerperformed. QUALITY: Technical quality was good. 69 , 195#, BSA 2.04 m2 LEFT VENTRICLE: Normal chamber size. Proximal septal hypertrophy(sigmoid septum). LV EF: Global left ventricular systolic function is hyperdynamic;visually estimated ejection fraction is 65 to 70%. No obvious wall motion abnormalities. DIASTOLIC: Unable to assess diastolic dysfunction. ATRIAL SEPTUM: Visually appears intact. LEFT ATRIUM: Mild dilatation. RIGHT ATRIUM: Normal chamber size. RIGHT VENTRICLE: Normal chamber size. Normal right ventricularsystolic function. TRICUSPID VALVE: Normal mobility and thickness. No stenosis withtrivial regurgitation. Unable to assess right-sided pressures due to lack of measurable tricuspid regurgitation. MITRAL VALVE: Normal mobility and thickness. No evidence of mitralvalve stenosis. There is no mitral annular calcification. Trivial mitral regurgitation. AORTIC VALVE: Normal trileaflet appearance. Severely calcified aortic valve with diminished mobility. Doppler velocity suggests moderate aortic valve stenosis. DVI 0.28, SHASHI 1.2 cm2. No aortic regurgitation. AORTIC ROOT: Normal diameter and appearance. PULMONIC VALVE: Normal thickness and mobility. No stenosis. Trivial regurgitation. PERICARDIUM: No evidence of pericardial effusion. IVC: Collapses with inspirations. IVC is normal in size. CONCLUSION: 1. Global left ventricular systolic function is hyperdynamic; visually estimated ejection fraction is 65 to 70% 2. Normal right ventricular size and systolic function 3. The left atrium is mildly dilated 4. Moderate aortic valve stenosis Adult Echocardiography Procedure Report Left Ventricle LVEDD (3.7 - 5.6 cm): 4.78 cm LVESD (2.2 - 4.0 cm): 2.94 cm LVIVS thickness (0.6 - 1.2 cm): 1.43 cm LVPW thickness (0.5 - 1.0 cm): 0.96 cm e': 0.07 m/s E - e': 9.04 LVOT Max Gradient: 2.26 mm[Hg] LVOT Area (cm2): 0.75 m/s Peak Velocity (LVOT): 0.75 m/s Mean Velocity (LVOT): 0.48 m/s LVOT Diameter 2.36 cm Left Atrium LA Volume Index (2D A2C): 38.05 ml/m2 Left Atrium Systolic Dimension: 4.25 cm Mitral Valve MV E to A Ratio: 0.98 Mitral Valve A-Wave Peak Velocity: 0.66 m/s Mitral Valve E-Wave Peak Velocity: 0.65 m/s Right Ventricle Aorta AO Root Diam: 3.65 cm Ascending Ao Diam: 2.46 cm Aortic Valve AoV Area (Peak Roberth): 1.23 cm2, 1.23 cm2 AoV Area (VTI): 1.23 cm2, 1.23 cm2 Peak Velocity(Antegrade Flow): 2.67 m/s Peak Gradient(Antegrade Flow): 28.57 mm[Hg] Mean Velocity(Antegrade Flow): 1.87 m/s Mean Gradient(Antegrade Flow): 15.89 mm[Hg] Velocity Time Integral: 70.58 cm Tricuspid Valve Pulmonic Valve Peak Velocity: 0.81 m/s Peak Gradient: 2.77 mm[Hg], 2.45 mm[Hg] Right Atrium Right Atrium Systolic Pressure: 37.38 ml, 37.38 ml Dictated by: Virgil Crockett M.D. on 11/22/2023 at 14:18 Approved by: Virgil Crockett M.D. on 11/22/2023 at 14:22 Dictated By: Virgil Crockett M.D. Signed By:11/22/23 1424 DD/ 142 TD/TT: Assistant Secretary: Martir Herbert MD [facility] Final Result documented in this encounter Visit Diagnoses Not on filedocumented in this encounter Care Teams Practical Nurse Clinical Coordinator Relationship Specialty Start Date End Date Martir Herbert MD [address] [facility] 110 [place] [address] PCP - ACO Reach 02/15/23 Martir Herbert MD [address] [facility] 110 [place] [address] PCP - General Internal Medicine 01/30/23 documented as of this encounter
--- OUTSIDE RECORDS SUMMARY | 2025-03-24 07:29 | XMS_ITS | Encounter Summary ---
Author Organization [facility] Address [address] [place] [address] Care Team Providers Care Inspector Subassembly Name Role Phone Martir Herbert MD Unavailable [phone] Martir Herbert MD Primary Care Provider [phone] Encounter Details Date Type Department Care Team (Late st Contact Info) Description 12/11/2023 Clinisync Result Encounter [facility] External Department Unsolicited Martir Herbert MD [address] [facility] 110 [place], [place] [phone] Social History Tobacco Use Types Packs/Day Years [...] Visit [facility] [address] [facility] 110 [place] [address] Martir Herbert MD [address] [facility] 110 [place] [address] documented as of this encounter Procedures Procedure Name Priority Date/Time Associated Diagnosis Comments VASC US CAROTID ARTERY DUPLEX BILATERAL 12/11/2023 3:42 PM EDT documented in this encounter Results * Vascular US carotid artery duplex bilateral (12/11/2023 3:42 PM EDT) Anatomical Region Laterality Modality Neck Ultrasound 12/11/2023 3:42 PM EDT Narrative 12/11/2023 3:45 PM EDT [address] [address] Ultrasound Report Signed Patient: JOSE ASENCIO MR#: [id number] : 1940 Acct:[id number] Age/Sex: 83 / M ADM Date: 12/11/23 Loc: US Attending Dr: MARTIR HERBERT Ordering Physician: MARTIR HERBERT Date of Service: 12/11/23 Procedure(s): US carotid duplex BI Accession Number(s): [id number] cc: MARTIR HERBERT [place] [id number] Patient Name: JOSE ASENCIO MRN: [facility]:[id number] date: 1940 Sex: M Assigned Patient Location: US Current Patient Location: US Accession/Order Number: [id number] Exam Date: 12/11/2023 13:58 Report Date: 12/11/2023 15:42 At the request of: MARTIR HERBERT Procedure: US carotid duplex BI EXAMINATION: US carotid duplex BI HISTORY: vision changes R42, H53.9, R53.1 COMPARISON: No relevant comparison available. TECHNIQUE: Duplex Doppler ultrasound analysis of carotid and vertebral arteries. . Bilateral carotid arterial duplex examination was performed using B-mode, color flow and spectral analysis. Carotid stenosis is reported according to validated velocity parameters, similar to NASCET criteria. FINDINGS: RIGHT CAROTID ARTERY Mild atherosclerotic plaque Subclavian: PSV: 126.0 cm/s cm/s EDV: 0.0 cm/s cm/s CCA: Prox: PSV: 98.4 cm/s cm/s EDV: 15.6 cm/s cm/s Mid: PSV: 110.2 cm/s cm/s EDV: 15.6 cm/s cm/s Distal: PSV: 102.3 cm/s cm/s EDV: 17.5 cm/s cm/s BULB: PSV: 54.2 cm/s cm/s EDV: 14.1 cm/s cm/s ICA: Prox: PSV: 84.0 cm/s cm/s EDV: 16.7 cm/s cm/s Mid: PSV: 89.8 cm/s cm/s EDV: 23.6 cm/s cm/s Distal: PSV: 97.9 cm/s cm/s EDV: 26.8 cm/s cm/s ECA: PSV: 184.9 cm/s cm/s EDV: 0.0 cm/s cm/s VERTEBRAL: PSV: 54.3 cm/s cm/s EDV: 12.3 cm/s cm/s, antegrade ICA/CCA ratio: PSV: 0.9 EDV: 1.7 LEFT CAROTID ARTERY mild atherosclerotic plaque Subclavian: PSV: 152.9 cm/s cm/s EDV: 0.0 cm/s CCA: Prox: PSV: 125.0 cm/s cm/s EDV: 24.8 cm/s Mid: PSV: 113.8 cm/s cm/s EDV: 22.0 cm/s Distal: PSV: 72.7 cm/s cm/s EDV: 9.7 cm/s BULB: PSV: 102.3 cm/s cm/s EDV: 11.6 cm/s ICA: Prox: PSV: 100.3 cm/s cm/s EDV: 25.4 cm/s Mid: PSV: 124.0 cm/s cm/s EDV: 33.3 cm/s Distal: PSV: 104.2 cm/s cm/s EDV: 31.3 cm/s ECA: PSV: 133.8 cm/s cm/s EDV: 0.0 cm/s VERTEBRAL: PSV: 46.0 cm/s cm/s EDV: 13.1 cm/s , antegrade ICA/CCA ratio: PSV: 1.0 EDV: 1.3 US/US carotid duplex BI IMPRESSION: 0-49% flow stenosis bilateral internal carotid arteries Spectral Doppler US Thresholds (Reference: Christoph EG, et al. Radiology 2000; 214:247-252) Stenosis (%) PSV (cm/sec) VICA/VCCA 0-49 <150 <2.5 50-69 150-225 2.5-4.0 >70 >225 >4.0 Electronically authenticated by: CHRISTINE VALLES Date: 12/11/2023 15:42 Dictated By: Christine Valles M.D. Signed By: 12/11/23 1545 DD/ 154 TD/TT: Server Developer: Procedure Note Radiology, Radiologist, MD - 12/11/2023 [place] [address] Ultrasound Report Signed Patient: JOSE ASENCIO R#: [id number] : 1940cct:[id number] Age/Sex: 83 / MADM Date: 12/11/23 Loc: US Attending Dr: MARTIR HERBERT Ordering Physician: MARTIR HERBERT Date of Service: 12/11/23 Procedure(s): US carotid duplex BI Accession Number(s): [id number] cc: MARTIR HERBERT [place] [address] Patient Name: JOSE ASENCIO MRN: [id number] date: 1940 Sex: M Assigned Patient Location: US Current Patient Location: US Accession/Order Number: [id number] Exam Date: 12/11/2023 13:58 Report Date: 12/11/2023 15:42 At the request of: MARTIR HERBERT Procedure: US carotid duplex BI EXAMINATION: US carotid duplex BI HISTORY: vision changes R42, H53.9, R53.1 COMPARISON: No relevant comparison available. TECHNIQUE: Duplex Doppler ultrasound analysis of carotid and vertebral arteries. . Bilateral carotid arterial duplex examination was performedusing B-mode, color flow and spectral analysis. Carotid stenosis is reported according to validated velocity parameters, similar to NASCET criteria. FINDINGS: RIGHT CAROTID ARTERY Mild atherosclerotic plaque Subclavian: PSV: 126.0 cm/s cm/s EDV: 0.0 cm/s cm/s CCA: Prox: PSV: 98.4 cm/s cm/s EDV: 15.6 cm/s cm/s Mid: PSV: 110.2 cm/s cm/s EDV: 15.6 cm/s cm/s Distal: PSV: 102.3 cm/s cm/s EDV: 17.5 cm/s cm/s BULB: PSV: 54.2 cm/s cm/s EDV: 14.1 cm/s cm/s ICA: Prox: PSV: 84.0 cm/s cm/s EDV: 16.7 cm/s cm/s Mid: PSV: 89.8 cm/s cm/s EDV: 23.6 cm/s cm/s Distal: PSV: 97.9 cm/s cm/s EDV: 26.8 cm/s cm/s ECA: PSV: 184.9 cm/s cm/s EDV: 0.0 cm/s cm/s VERTEBRAL: PSV: 54.3 cm/s cm/s EDV: 12.3 cm/s cm/s, antegrade ICA/CCA ratio: PSV: 0.9 EDV: 1.7 LEFT CAROTID ARTERY mild atherosclerotic plaque Subclavian: PSV: 152.9 cm/s cm/s EDV: 0.0 cm/s CCA: Prox: PSV: 125.0 cm/s cm/s EDV: 24.8 cm/s Mid: PSV: 113.8 cm/s cm/s EDV: 22.0 cm/s Distal: PSV: 72.7 cm/s cm/s EDV: 9.7 cm/s BULB: PSV: 102.3 cm/s cm/s EDV: 11.6 cm/s ICA: Prox: PSV: 100.3 cm/s cm/s EDV: 25.4 cm/s Mid: PSV: 124.0 cm/s cm/s EDV: 33.3 cm/s Distal: PSV: 104.2 cm/s cm/s EDV: 31.3 cm/s ECA: PSV: 133.8 cm/s cm/s EDV: 0.0 cm/s VERTEBRAL: PSV: 46.0 cm/s cm/s EDV: 13.1 cm/s , antegrade ICA/CCA ratio: PSV: 1.0 EDV: 1.3 US/US carotid duplex BI IMPRESSION: 0-49% flow stenosis bilateral internal carotid arteries Spectral Doppler US Thresholds (Reference: Christoph EG, et al. [id number]; 214:247-252) Stenosis (%) PSV (cm/sec) VICA/VCCA 0-49 <150 <2.5 50-69 150-225 2.5-4.0 >70 >225 >4.0 Electronically authenticated by: CHRISTINE VALLES Date: 12/11/2023 15:42 Dictated By: Christine Valles M.D. Signed By:12/11/23 1545 DD/ 1542 TD/TT: Server Developer: us Martir Herbert MD IMG US PROCEDURES Final Result documented in this encounter Visit Diagnoses Not on filedocumented in this encounter Care Teams Inspector Subassembly Relationship Specialty Start Date End Date Martir Herbert MD [address] [facility] 110 [place] [address] PCP - ACO Reach 02/15/23 Martir Herbert MD [address] [facility] 110 [place] [address] PCP - General Internal Medicine 01/30/23 documented as of this encounter
--- OUTSIDE RECORDS SUMMARY | 2025-03-24 07:36 | XMS_ITS | CCD ---
Author Organization [facility] Care Team Providers Care Application Packaging Specialist Name Role Phone MARTIR HERBERT Primary Care Physician [phone] DR MARTIR HERBERT Admitting Unavailable KEON, DR POPE Primary Care Unavailable KEON, DR POPE Consulting Unavailable KEON, DR PPOE Attending Unavailable LADAN, DR OSULLIVAN Attending Unavailable [...] MD, Daniel B Primary Care Provider [phone] MARTIR HERBERT II Primary Care Unavailable cJ [...] Unavailable Martir Herbert MD Primary Care Provider MARTIR HERBERT Attending Unavailable MARTIR HERBERT Attending Unavailable MARTIR HERBERT Attending Unavailable MARTIR HERBERT Attending Unavailable Allergies Allergy Classification Reported Allergen(s) Allergy Type Date of Onset Reaction(s) Facility (10 sources) Penicillin; Translations: [penicillin] Drug Allergy Unknown (qualifier value) [facility] (10 sources) Sulfonamides; Translations: [sulfonamides] Drug allergy Unknown (qualifier value) [facility] (5 sources) Penicillins; Translations: [PENICILLINS] Drug allergy (disorder) 3 Hives [facility] (1 source) Sulfonamides (Antibiotic) Drug allergy (disorder) 3 [facility] (9 sources) Penicillins Drug Allergy 3 [facility] (20 sources) Sulfonamides (Antibiotic); Translations: [SULFA (SULFONAMIDE ANTIBIOTICS)] Drug Allergy 3 [facility] (1 source) Penicillins Drug allergy (disorder) 4 [facility] Repository (1 source) Sulfonamides (Antibiotic) Drug allergy (disorder) 4 [facility] (9 sources) Penicillins Drug Allergy 3 Hives, Rash, Unknown [facility] Medications Current Medications Medication Drug Class(es) Dates Sig (Normalized) Sig (Original) acetaminophen 325 mg / HYDROcodone bitartrate 7.5 mg oral tablet (1 source) Opioid Agonist Start: 01-04-2023 take 1 tablet by mouth once, then take 1 tablet by mouth every hour [place] 325 mg-7.5 mg oral tablet 1 tab(s), Oral, Once, 1 tab(s), Refill(s) 0, Take 1 hour prior to procedure, [facility]/pharmacy #[id number], 175, cm, 03/13/23 12:29:00 EDT, Height/Length Dosing, [...] daily. calcium citrate 950 mg oral tablet (18 sources) calcium citrate (Calcitrate) 950 (200 Ca) MG tablet Take 200 mg by mouth in the morning. Active calcium citrate (CITRACAL ORAL) Take by mouth. Active calcium citrate (CITRACAL ORAL) Take by mouth. 0 Active Comment on above: Take by mouth. cholecalciferol 0.025 mg oral tablet (9 sources) Vitamin D take 1 tablet by [...] 11/28/2024 Active furosemide 20 mg oral tablet (11 sources) Loop Diuretic Start: 04-21-20 24 End: [...] 10/28/19 Status: Ordered omega-3 acid ethyl esters (group home) 1000 mg oral capsule (20 sources) Start: [...] Start: 01-05-2023 take 1 capsule by mo [facility] in the morning omega-3 acid ethyl esters [...] ement oxybutynin chloride 5 mg oral tablet (12 sources) Cholinergic Muscarinic Antagonist Start: take 1 tablet by mouth at bedtime as needed oxybutynin 5 mg Tab 5 mg = 1 tab(s), Oral, Bedtime, PRN for urinary discomfort, # 30 tab(s), Refills(s) 11, Pharmacy: [facility]/pharmacy #[id number], 175, cm, 12/28/23 8:09:00 EDT, Height/Length [...] Start Date: 10/28/19 Status: Ordered Vit D3-Vit K2-Couch Lyerly Ext (3 sources) Start: 05-29-2023 take 1 capsule by mouth once daily Vit D3-Vit K2-Couch Lyerly Ext Active 25 CAP PO Daily May 29, 2023 12:00am Vitamins A,C,A-Msup-Gqojie (Preservision Areds) 4,296 mcg-226 mg-90 mg capsule (2 sources) Start: 12-18-2023 take 1 capsule by mouth twice daily Vitamins A,C,H-Pafs-Eqalhz (Preservision Areds) 4,296 mcg-226 mg-90 mg capsule [...] melanoma 10-28-2019 Episodic Disorders of lipid metabolism (15 sources) Mixed hyperlipidemia; Translations: [Mixed hyperlipidemia] Onset: 03-04-2022 Chronic Essential hypertension (11 sources) Benign essential hypertension; Translations: [Essential (primary) hypertension] Onset: 05-28-2023 05-28-2023 Chronic Gastrointestinal hemorrhage (1 source) Rectal hemorrhage; Translations: [Hemorrhage of anus and rectum] 05-03-2023 Episodic Heart valve disorders (9 sources) Nonrheumatic aortic (valve) stenosis; Translations: [Aortic valve disorders] Onset: 12-06-2023 12-06-2023 Chronic Inflammation; infection of eye (except that caused by tuberculosis or sexually transmitteddisease) (2 sources) Blepharitis of upper and lower eyelids of bilateral eyes; Translations: [Unspecified blepharitis right eye, upper and lower eyelids] 11-21-2024 Episodic Osteoarthritis (9 sources) Osteoarthritis of joint of right hand; Translations: [Primary osteoarthritis, right hand] Onset: 11-12-2023 11-12-2023 Chronic Other gastrointestinal disorders (1 source) Constipation; Translations: [Constipation, unspecified] 05-03-2023 Episodic Residual codes; unclassified (2 sources) Localized edema; Translations: [Localized edema] 11-21-2024 Episodic Systemic lupus erythematosus and connective tissue disorders (14 sources) Temporal arteritis; 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] Onset: 12-19-2023 12-18-2023 Chronic Unclassified (1 source) Encounter for screening for malignant neoplasm of colon; Translations: [Encounter for screening for malignant neoplasm of colon] Onset: 05-29-2023 Past or Other Problems Problem Classification Problem Date Documented Da te Episodic/Chronic Abdominal hernia (9 sources) Left inguinal hernia ; Translations: [Unilateral [...] 11-14-2023 10-28-2019 Chronic Other male genital disorders (9 sources) Dysplasia of prostate; 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] Onset: 06-15-2005 Resolved: 11-14-2023 11-14-2023 Episodic Other nutritional; endocrine; and metabolic disorders (18 sources) Body mass index 25-29 - overweight; Translations: [Overweight] Onset: 11-12-2023 09-01-2020 Episodic Other screening for suspected conditions (not mental disorders or infectious disease) (20 sources) Raised prostate specific antigen; Translations: [Elevated prostate specific antigen [PSA]] Onset: 10-17-2022 09-01-2020 Episodic Other skin disorders (9 sources) Chronic folliculitis; Translations: [Follicular disorder, unspecified] Onset: 11-12-2023 11-12-2023 Episodic Results Test Name Value Interpretation Reference Range Facility ALL SED RATEon 01-01-2025 TBH SED RATE 10 NINF [facility] ALL CBC WITH AUTO DIFFon BASOPHILS ABSOLUTE AUTO 0.1 [facility] Basophils/100 WBC (Bld) 0.7 % 0.2 - 2.0 % [facility] Eosinophils/100 WBC (Bld) 4 % 0.9 - 7.0 % [facility] Erythrocyte distribution width (RBC) [Ratio] 13.5 % 11.0 - 15.0 % [facility] Hematocrit (Bld) [Volume fraction] 45.9 % 42.0 - 54.0 % [facility] Hemoglobin (Bld) [Mass/Vol] 15.3 g/dL 14.0 - 18.0 g/dL [facility] IMMATURE GRANULOCYTES ABS AUTO 0.01 [facility] Immature granulocytes/100 WBC (Bld) 0.1 % 0.0 - 0.5 % [facility] Interpretation and review of laboratory results Abnormal [facility] LYMPHOCYTES ABSOLUTE AUTO 2.2 [facility] Lymphocytes/100 WBC (Bld) 32.9 % 20.5 - 60.0 % [facility] MCH (RBC) [Entitic mass] 30.4 pg 25.9 - 34.0 pg [facility] MCHC (RBC) [Mass/Vol] 33.3 g/dL 29.9 - 35.2 g/dL [facility] MCV (RBC) [Entitic vol] 91.3 fL 80.0 - 94.0 fL [facility] MONOCYTES ABSOLUTE AUTO 0.8 [facility] Monocytes/100 WBC (Bld) 11.4 % 1.7 - 12.0 % [facility] NEUTROPHILS ABSOLUTE AUTO 3.4 [facility] Neutrophils/100 WBC (Bld) 50.9 % 43.0 - 75.0 % [facility] Platelet mean volume (Bld) [Entitic vol] 9.2 fL Low 9.5 - 13.5 fL [facility] TBH EO # 0.3 [facility] TB PLT 241 [facility] RBC 5.03 [facility] WBC 6.8 [facility] ALL C REACTIVE PROTEINon CRP [Mass/Vol] mg/L [facility] - 0.50 mg/dL [facility] ALL SED RATEon 09-25-2024 TBH SED RATE 7 [facility] No [facility] 07-14-2024 Interpretation and review of laboratory results Abnormal [facility] SED RATE 35 [facility] Urology Office/Clinic Noteon 07-04-2024 Urology Office/Clinic Note [...] [facility] [address], [place] [address]- Additional Instructions: 1 yr with PSA from [...] virus vaccine, inactivated 08/13/2022 Recorded SARS-CoV-2 (COVID-19) [id number] 08/13/2022 Recorded zoster vaccine, inactivated 12/18/2021 Recorded zoster vaccine, inactivated 09/21/2021 Recorded diphtheria/pertussis, acel/tetanus adult 09/19/2021 Recorded influenza (more content not included)... Normal [facility] Comment on above: Result Comment: Elec tronically Signed By: Abran OCHOA MD\.br\Date and Time Signed: 07/04/24 10:24 EDT\.br\Electronically Co-Signed By: Debi Vidal\.br\Date and Time Co-Signed: 07/04/24 10:22 EDT MHPT PSA, DIAGNOSTICon 07-01 PROSTATE SPECIFIC ANTIGEN DX 0.30 ng/mL NINF - 4.00 ng/mL [facility] ALL SED RATEon 05-27-2024 TBH SED RATE 9 NINF [facility] Healthcare CNOVon 04-10-2024 CNOV Office Visit (RADTSA ) JOSE CAN ([id number]) 1940 M Date Time Provider Department 04/10/24 9:45 AM Jc MENDIOLA During your visit today, we recorded the following information about you: Temperature Pulse Respiration Blood pressure 97.4 degrees 71/minute 18/minute 152/78 Weight 85.3 kg Nichelle Elkins RN 04/14/2024 10:59 AM Signed AUA 4 NATALIO Woodson G Phillip MD 04/14/2024 10:59 AM Signed Radiation Oncology - Follow Up Note PATIENT NAME: Jose Can PATIENT DIAGNOSIS: Prostate adenocarcinoma, initial PSA 3.1, biopsy Dayton score 3 + 4 = 7 (grade [...] ASSESSMENT/PLAN: Prostate adenocarcinoma, initial PSA 3.1, biopsy Dayton score 3 + 4 = 7 (grade [...] MD cc: Martir Herbert II, MD [address] [place] [address] Dr. Ochoa Allergies As of Date: 04/10/2024 Noted Allergy Reaction PENICILLINS 02/16/2023 2 - Rash SULFA (SULFONAMIDE ANTIBIOTICS) 02/16/2023 2 - Rash Date Reviewed: 04/10/2024 Reviewed by: Nichelle Elkins RN - Fully Assessed Primary Visit Diagnosis:Malignant neoplasm of prostate (HCC) [C61] Order(s):PSA (OUTSIDE) [2538582] Order #: [id number] Prescriptions as of 04/14/2024 - predniSONE (DELTASONE) [...] 10/11/2023 Visit Notes: >> Nichelle Elkins RN Barbi Apr 10, 2024 9:32 AM Status: Signed AUA 4 Nichelle Elkins RN Disposition: Return in about 1 year (around 04/10/2025). Follow-up and Disposition History for Encounter Date Provider Department Center 04/10/2024 [id number] MENDIOLA DEVIN Bautista Encounter Status:Closed by Jc MENDIOLA on 04/14/24 Normal [facility] Patient Educationon 12-28-19 Patient Education Urology [...] Follow these instructions at home: ? Take ipgv-sfb-dbwmujw and prescription medicines only as told by [...] the medicine (more content not included)... Normal [facility] Urology Office/Clinic Noteon 12-28-2023 Urology Office/Clinic [...] IO s/p brachytherapy. Pt then presented to [facility] ER due to inability to urinate after catheter removal. Bladder scan was >500mL. Dc'd home with Mendoza catheter in place. Came to our office 09/21/23 for catheter removal per approval of PRW. No issues with urination after Mendoza was removed. See #2. Follow-up With When Contact Information Abran OCHOA MD, URL [address] [place] [address]- Additional Instructions: 6 mos w/ PSA Patient [...] Medications Co (more content not included)... Normal [facility] Comment on above: Result Comment: Elec tronically Signed By: Abran OCHOA MD\.br\Date and Time Signed: 12/28/23 08:53 EDT\.br\Electronically Co-Signed By: Agata Durant\.br\Date and Time Co-Signed: 12/28/23 08:52 EDT Lab Reportson 12-24-2023 Lab Reports [id number] Normal [facility] PSA (OUTSIDE)on 12-24-2023 [facility] Anisocytosis LM Ql (Bld)Orde red By: Arden Marin on 12-19-2023 Anisocytosis Ql (Bld) Slight Fir [facility] Basic Metabolic Panelon 11-23 Anion gap [Moles/Vol] 9.1 mmol/L Normal 6.0-15.0 [facility] Comment on above: Performed By: #### S CAN CBC, BMP #### [facility] [address] [place] [address] [place] Calcium [Mass/Vol] 8.5 mg/dL Low 8.6-10.3 [facility] Comment on above: Performed By: #### S CAN CBC, BMP #### [facility] [address] [place] [address] [place] Chloride [Moles/Vol] 103 mmol/L Normal 98-107 [facility] Comment on above: Performed By: #### S CAN CBC, BMP #### [facility] [address] [place] [address] [place] CO2 [Moles/Vol] 26.0 mmol/L Normal 21.0-31.0 [facility] Comment on above: Performed By: #### S CAN CBC, BMP #### [facility] [address] [place] [address] [place] Creatinine [Mass/Vol] 0.74 mg/dL Normal 0.70-1.30 [facility] Comment on above: Performed By: #### S CAN CBC, BMP #### [facility] [address] [place] [address] [place] Creatinine Clr Calc Pharmacy 78.34 Normal [facility] Comment on above: Result Comment: PERF ORMED BY: [place] [address] PATHOLOGIST CARPENTER SUPERVIS[employer] CAREN DALEY M.D. Performed By: #### S CAN CBC, BMP #### [facility] [address] [place] [address] [place] GFR/1.73 sq M.predicted MDRD (S/P/Bld) [Vol rate/Area] mL/min/{1.73_m2} Normal [facility] Comment on above: Performed By: #### S CAN CBC, BMP #### [facility] [address] Glucose [Mass/Vol] 88 mg/dL Normal 70-100 [facility] Comment on above: Result Comment: [place] Glucose Reference Range is dependent on time and content of last meal. Glucose of more than 200 mg/dL in a nonstressed, ambulatory subject supports the diagnosis of Diabetes Mellitus. ADA recommended reference range Performed By: #### S CAN CBC, BMP #### [facility] [address] Potassium [Moles/Vol] 4.1 mmol/L Normal 3.5-5.1 [facility] Comment on above: Performed By: #### S CAN CBC, BMP #### [facility] [address] [place] [address] [place] Sodium [Moles/Vol] 134 mmol/L Low 136-145 [facility] Comment on above: Performed By: #### S CAN CBC, BMP #### [facility] [address] Urea nitrogen [Mass/Vol] 23 mg/dL Normal 7-25 [facility] Comment on above: Performed By: #### S CAN CBC, BMP #### [facility] [address] [place] [address] [place] Basophils Auto (Bld) [#/Vol] Ordered By: Arden Marin on 12-19-2023 Basophils (Bld) [#/Vol] 0.1 10*3/uL 0.0-0.2 [facility] Basophils/100 WBC Auto (Bld) Ordered By: Arden Marin on 12-19-2023 Basophils/100 WBC (Bld) 0.4 % . [facility] Calcium [Mass/volume] in Ser um or PlasmaOrdered By: Arden Marin on 12-19-2023 Calcium [Mass/Vol] 8.5 mg/dL 8.6-10.3 [facility] Carbon dioxide, total [Moles /volume] in Serum or PlasmaOrdered By: Arden Marin on 12-19-2023 CO2 [Moles/Vol] 26.0 mmol/L 21.0-31.0 [facility] Chloride [Moles/volume] in S jerry or PlasmaOrdered By: Arden Marin on 12-19-2023 Chloride [Moles/Vol] 103 mmol/L 98-107 [facility] Creatinine [Mass/volume] in Serum or PlasmaOrdered By: Arden Marin on 12-19-2023 Creatinine [Mass/Vol] 0.74 mg/dL 0.70-1.30 [facility] ECG 12 lead ECGon 12-19-2023 ECG 12 lead ECG [facility] [place] [address] Electrocardiograph Report Signed Patient: Jose Can MR#: [id number] : 1940 Acct:[id number] Age/Sex: 83 / M ADM Date: 12/19/23 Loc: [place] Room: Type: [facility] Attending Dr: Armani Kelly MD Ordering Provider: [...] previous ECGs available Confirmed by [facility] Cook ([id number]) on 12/19/2023 6:51:43 AM Referred By: Electronically Signed By:ABRAN SRIVASTAVA MD FAC Transcribed By: MUS Signed By Pal Srivastava MD 12/19/23650 Normal [facility] Eosinophils Auto (Bld) [#/Vo l]Ordered By: Arden Marin on 12-19-2023 Eosinophils (Bld) [#/Vol] 0.1 10*3/uL 0.0-0.45 [facility] Eosinophils/100 WBC Auto (Bl d)Ordered By: Arden Marin on 12-19-2023 Eosinophils/100 WBC (Bld) 0.3 % . [facility] Erythrocyte distribution wid th Auto (RBC) [Ratio]Ordered By: Arden Marin on 12-19-2023 Erythrocyte distribution width (RBC) [Ratio] 13.9 % 12.0-14.8 [facility] Glucose [Mass/volume] in Ser um or PlasmaOrdered By: Arden Marin on 12-19-2023 Glucose [Mass/Vol] 88 mg/dL 70-100 [facility] Comment on above: ADA recommended refe rence rangeRandom Glucose Reference Range is dependent on time and content of last meal. Glucose of more than 200 mg/dL in a nonstressed, ambulatory subject supports the diagnosis of Diabetes Mellitus. Hematocrit Auto (Bld) [Volum e fraction]Ordered By: Arden Marin on 12-19-2023 Hematocrit (Bld) [Volume fraction] 40.8 % 38.8-50.0 [facility] Hemoglobin [Mass/volume] in BloodOrdered By: Arden Marin on 12-19-2023 Hemoglobin (Bld) [Mass/Vol] 13.4 g/dL 13.0-17.0 [facility] Isaías 12-19-2023 L Specimen: Received: 12/19/23 Status: RANDI Capellan Num: [id number] Spec Type: Surgical Subm Dr: Armani Kelly MD Tissues: A Artery Temporal- Biopsy (RT TEMPORAL ARTERY BX) Procedures: Trichrome/2, CD45/2, HE/20, Gross/Micro L4, CD20/2, CD3/2, CD68/2 Age/ Patient Sex Location Account Attending Physician Jose Can 83/M [place] [id number] Armani Kelly MD SPEC NUM: [id number] RECD: 12/19/23 STATUS: RANDI BARAJAS NUM: [id number] FAIZAN: 12/19/[address]: Armani Kelly MD ENTERED: 12/19/[address]: SPEC TYPE: Surgical DEPT: S ORDERED: [...] Clinical Information Right temporal arteritis -------- Specimen: [id number] Received: 12/19/23 Status: RANDI Marilia Num: [id number] Spec Type: Surgical Subm Dr: Armani Kelly MD Tissues: A Artery Temporal- Biopsy (RT TEMPORAL ARTERY BX) Procedures: Trichrome/2, CD45/2, HE/20, Gross/Micro L4, CD20/2, CD3/2, CD68/2 -------- Patient: Jose Can [id number] (Continued) -------- Specimen: [id number] Received: 12/19/23 (Continued) Signed (signature on file) Mee Bush MD 12/21/231838 -------- Specimen: [id number] Received: 12/19/23 Status: RANDI Barajaslinda Num: [id number] Spec Type: Surgical Subm Dr: Armani Kelly MD Tissues: A Artery Temporal- Biopsy (RT TEMPORAL ARTERY BX) Procedures: Trichrome/2, CD45/2, HE/20, Gross/Micro L4, CD20/2, CD3/2, CD68/2 -------- Patient: Jose Can [id number] (Continued) -------- Specimen: [id number] Received: 12/19/23 (Continued) Gross Description Received fresh labeled with the patient's name, date of and temporal artery biopsy right is a 7.8 x 0.3 cm cabrera-pink tubular tissue with attached silver metal clips. Sectioning reveals a patent lumen. Entirely submitted in two cassettes labeled A1-A2. CPT Codes 44889 46670, 50479k3 94723 -------- -------- Specimen: [id number] Received: 12/19/23 Status: RANDI Capellan Num: [id number] Spec Type: Surgical Subm Dr: Armani Kelly MD Tissues: A Artery Temporal- Biopsy (RT TEMPORAL ARTERY BX) Procedures: Trichrome/2, CD45/2, HE/20, Gross/Micro L4, CD20/2, CD3/2, CD68/2 -------- Patient: Jose Can [id number] (Continued) -------- Signed (signature on file) Matthew-Joni Bush MD 12/21/23 1839 Normal [facility] Leukocytes [#/volume] correc claudia for nucleated erythrocytes in Blood by Automated counOrdered By: Arden Marin on 12-19-2023 WBC corrected for nucl RBC Auto (Bld) [#/Vol] 16.2 10*3/uL 4.1-10.5 [facility] Lymphocytes Auto (Bld) [#/Vo l]Ordered By: Arden Marin on 12-19-2023 Lymphocytes (Bld) [#/Vol] 2.9 10*3/uL 1.00-4.8 [facility] Lymphocytes/100 WBC Auto (Bl d)Ordered By: Arden Marin on 12-19-2023 Lymphocytes/100 WBC (Bld) 17.7 % . [facility] MCH Auto (RBC) [Entitic mass ]Ordered By: Arden Marin on 12-19-2023 MCH (RBC) [Entitic mass] 28.9 pg 27.5-35.2 [facility] MCHC Auto (RBC) [Mass/Vol]Or dered By: Arden Marin on 12-19-2023 MCHC (RBC) [Mass/Vol] 32.8 g/dL 32.5-35.6 [facility] MCV Auto (RBC) [Entitic vol] Ordered By: Arden Marin on 12-19-2023 MCV (RBC) [Entitic vol] 88.0 fL 83.5-101 [facility] Microcytes LM Ql (Bld)Ordere d By: Arden Marin on 12-19-2023 Microcytes Ql (Bld) Slight [facility] Monocytes Auto (Bld) [#/Vol] Ordered By: Arden Marin on 12-19-2023 Monocytes (Bld) [#/Vol] 1.3 10*3/uL 0.0-0.8 [facility] Monocytes/100 WBC Auto (Bld) Ordered By: Arden Marin on 12-19-2023 Monocytes/100 WBC (Bld) 8.3 % . [facility] Neutrophils Auto (Bld) [#/Vo l]Ordered By: Arden Marin on 12-19-2023 Neutrophils (Bld) [#/Vol] 11.9 10*3/uL 1.8-7.7 [facility] Neutrophils/100 WBC Auto (Bl d)Ordered By: Arden Marin on 12-19-2023 Neutrophils/100 WBC (Bld) 73.3 % . [facility] No Panel InformationOrdered By: Arden Marin on 12-19-2023 Estimated GFR (CKD-EPI) > 60.0 mL/Min [facility] Creatinine Clearance (Chem 78.34 [facility] Nucleated erythrocytes [Pres ence] in Blood by Automated countOrdered By: Arden Marin on 12-19-2023 Nucleated RBC Auto Ql (Bld) 0.1 /100{WBC} 0-0.5 [facility] Ovalocyte detectionOrdered B y: Arden Marin on 12-19-2023 Ovalocytes LM Ql (Bld) Slight [facility] Platelet adequacy [Presence] in Blood by Light microscopyOrdered By: Arden Marin on 12-19-2023 Platelets LM Ql (Bld) Normal Normal [facility] Platelet mean volume Auto (B ld) [Entitic vol]Ordered By: Arden Marin on 12-19-2023 Platelet mean volume (Bld) [Entitic vol] 7.4 fL 6.6-10.1 [facility] Platelet morphology finding [Identifier] in BloodOrdered By: Arden Marin on 12-19-2023 Platelet morphology finding Nom (Bld) Normal Normal [facility] Platelets Auto (Bld) [#/Vol] Ordered By: Arden Marin on 12-19-2023 Platelets (Bld) [#/Vol] 364 10*3/uL 150-450 [facility] Platelets Large [Presence] i n Blood by Light microscopyOrdered By: Arden Marin on 12-19-2023 Platelets Large LM Ql (Bld) Slight [facility] Poikilocytosis [Presence] in Blood by Light microscopyOrdered By: Arden Marin on 12-19-2023 Poikilocytosis LM Ql (Bld) Slight [facility] Potassium [Moles/volume] in Serum or PlasmaOrdered By: Arden Marin on 12-19-2023 Potassium [Moles/Vol] 4.1 mmol/L 3.5-5.1 [facility] RBC Auto (Bld) [#/Vol]Ordere d By: Arden Marin on 12-19-2023 RBC (Bld) [#/Vol] 4.64 10*6/uL 3.90-5.60 [facility] RBC morphologyOrdered By: Kylah Marin on 12-19-2023 RBC morphology finding Nom (Bld) N/A [facility] Scan and CBCon 12-19-2023 Anisocytosis Ql (Bld) Slight Normal [facility] Comment on above: Performed By: #### S CAN CBC, BMP #### [facility] [address] [place] [address] [place] Basophils (Bld) [#/Vol] 0.1 10*3/uL Normal 0.0-0.2 [facility] Comment on above: Performed By: #### S CAN CBC, BMP #### [facility] [address] [place] [id number] [place] Basophils/100 WBC (Bld) 0.4 % Normal . [facility] Comment on above: Performed By: #### S CAN CBC, BMP #### [facility] [address] [place] [id number] [place] Eosinophils (Bld) [#/Vol] 0.1 10*3/uL Normal 0.0-0.45 [facility] Comment on above: Performed By: #### S CAN CBC, BMP #### [facility] [address] [id number] [place] Eosinophils/100 WBC (Bld) 0.3 % Normal . [facility] Comment on above: Performed By: #### S CAN CBC, BMP #### [address] Erythrocyte distribution width (RBC) [Ratio] 13.9 % Normal 12.0-14.8 [facility] Comment on above: Performed By: #### S CAN CBC, BMP #### [address] Hematocrit (Bld) [Volume fraction] 40.8 % Normal 38.8-50.0 [facility] Comment on above: Performed By: #### S CAN CBC, BMP #### [address] Hemoglobin (Bld) [Mass/Vol] 13.4 g/dL Normal 13.0-17.0 [facility] Comment on above: Performed By: #### S CAN CBC, BMP #### [address] Large Platelets Slight Normal [facility] Comment on above: Result Comment: PERF ORMED BY: [place] [address] PATHOLOGIST [employer]PENTER [employer]PER[employer] CAREN DALEY M.D. Performed By: #### S CAN CBC, BMP #### [address] Lymphocytes (Bld) [#/Vol] 2.9 10*3/uL Normal 1.00-4.8 [facility] Comment on above: Performed By: #### S CAN CBC, BMP #### [address] Lymphocytes/100 WBC (Bld) 17.7 % Normal . [facility] Comment on above: Performed By: #### S CAN CBC, BMP #### [address] MCH (RBC) [Entitic mass] 28.9 pg Normal 27.5-35.2 [facility] Comment on above: Performed By: #### S CAN CBC, BMP #### [place] [address] [place] MCV (RBC) [Entitic vol] 88.0 fL Normal 83.5-101 [facility] Comment on above: Performed By: #### S CAN CBC, BMP #### [address] Mean Corpuscular HGB Conc 32.8 g/dL Normal 32.5-35.6 [facility] Comment on above: Performed By: #### S CAN CBC, BMP #### [address] Microcytosis Slight Normal [facility] Comment on above: Performed By: #### S CAN CBC, BMP #### [address] Monocytes (Bld) [#/Vol] 1.3 10*3/uL High 0.0-0.8 [facility] Comment on above: Performed By: #### S CAN CBC, BMP #### [address] Monocytes/100 WBC (Bld) 8.3 % Normal . [facility] Comment on above: Performed By: #### S CAN CBC, BMP #### [address] Neutrophils (Bld) [#/Vol] 11.9 10*3/uL High 1.8-7.7 [facility] Comment on above: Performed By: #### S CAN CBC, BMP #### [address] Neutrophils/100 WBC (Bld) 73.3 % Normal . [facility] Comment on above: Performed By: #### S CAN CBC, BMP #### [address] NRBC% 0.1 /100{WBC} Normal 0-0.5 [facility] Comment on above: Performed By: #### S CAN CBC, BMP #### [address] Ovalocytes Slight Normal [facility] Comment on above: Performed By: #### S CAN CBC, BMP #### [address] Platelet Estimate Normal Normal Normal [facility] Comment on above: Performed By: #### S CAN CBC, BMP #### [address] Platelet mean volume (Bld) [Entitic vol] 7.4 fL Normal 6.6-10.1 [facility] Comment on above: Performed By: #### S CAN CBC, BMP #### [address] Platelet Morphology Normal Normal Normal [facility] Comment on above: Performed By: #### S CAN CBC, BMP #### [address] Platelets (Bld) [#/Vol] 364 10*3/uL Normal 150-450 [facility] Comment on above: Performed By: #### S CAN CBC, BMP #### [address] Poikilocytosis Slight Normal [facility] Comment on above: Performed By: #### S CAN CBC, BMP #### [address] RBC (Bld) [#/Vol] 4.64 10*6/uL Normal 3.90-5.60 [facility] Comment on above: Performed By: #### S CAN CBC, BMP #### [address] WBC (Bld) [#/Vol] 16.2 10*3/uL High 4.1-10.5 [facility] Comment on above: Performed By: #### S CAN CBC, BMP #### [address] Serum or plasma anion gap de terminationOrdered By: Arden Marin on 12-19-2023 Anion gap [Moles/Vol] 9.1 mmol/L 6.0-15.0 [facility] Sodium [Moles/volume] in Ser um or PlasmaOrdered By: Arden Marin on 12-19-2023 Sodium [Moles/Vol] 134 mmol/L 136-145 [facility] Urea nitrogen [Mass/volume] in Serum or PlasmaOrdered By: Arden Marin on 12-19-2023 Urea nitrogen [Mass/Vol] 23 mg/dL 7-25 [facility] WBC Auto (Bld) [#/Vol]Ordere d By: Arden Mairn on 12-19-2023 WBC (Bld) [#/Vol] 16.2 10*3/uL 4.1-10.5 [facility] Consultation Noteon 10-12-19 Consultation Note [id number]#1. 00TIFF Normal [facility] CNOVon 10-11-2023 CNOV Office Visit (RADTSA ) JOSE CAN ([id number]) 1940 M Date Time Provider Department 10/11/23 [...] Mendiola MD cc: Martir Herbert II, MD [address] [place] [address] Debra Anthony LPN 10/11/2023 9:38 AM Signed AUA= 5 Allergies As of Date: 10/11/2023 Noted Allergy Reaction PENICILLINS 02/16/2023 2 - Rash SULFA (SULFONAMIDE ANTIBIOTICS) 02/16/2023 2 - Rash Date Reviewed: 09/19/2023 Reviewed by: Debra Quinn LPN - Fully Assessed Primary Visit Diagnosis:Malignant neoplasm of prostate (HCC) [C61] Order(s):PSA (OUTSIDE) [3535612] Order #: [id number] PSA/PROSTSPECAG DIAG [SQPSA] Order #: [id number] FUTURE Prescriptions as of 10/11/2023 - simvastatin [...] (HCC) [C61] 10/11/2023 Visit Notes: >> Debra uQinn LPN [facility] Oct 11, 2023 9:26 AM Status: Signed AUA= 5 Disposition: Return in about 6 months (around 04/10/2024). Follow-up and Disposition History for Encounter Date Provider Department Center 10/11/2023 [id number] MENDIOLA [facility] Encounter Status:Closed by Jc MENDIOLA on 10/11/23 Normal [facility] Consultation Noteon 10-09-19 Consultation Note [id number]# 1.00TIFF Normal [facility] ED Note-Physicianon 10-09-19 ED Note-Physician [id number]#1. 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 Take obpt-zxi-tgrrbuk or prescription medicines. ? Eat foods that are high in fiber, such as beans, whole grains, and fresh fruits and vegetables. ? Limit foods that are high in fat and processed sugars, such as fried or sweet foods. General instructions ? Take tvst-wlh-tqpgjmu and prescription medicines only as told by [...] away if: (more content not included)... Normal [facility] Urology Office/Clinic Noteon 10-08-2023 Urology Office/Clinic [...] 09/12/23 in our office. Then presented to [facility] ER due to inability to urinate [...] our office after brachytherapy. Then presented to [facility] ER due to inability to urinate after catheter removal. Bladder scan was >500mL. Dc'd home with Mendoza catheter in place. Came to our office 09/21/23 for catheter removal per approval of PRW. Reports he has not had any issues urinating since. Follow-up With When Contact Information LADAN EDWARDS, Abran Darling, URL [facility] [address], [place] [phone] Additional Instructions: 3 mos w/ PSA Patient [...] hernia rep (more content not included)... Normal [facility] Comment on above: Result Comment: Elec tronically Signed By: Abran OCHOA MD\.br\Date and Time Signed: 10/08/23 10:36 EST\.br\Electronically Co-Signed By: Michaela Herbert\.br\Date and Time Co-Signed: 10/08/23 10:35 EST Ambulatory Visit Summaryon 1 Ambulatory Visit Summary RUSLAN CANEduardo [place] :1940 Visit Date:09/21/2023 Ambulatory Visit Instructions Your [...] EDWARDS, Abran Darling Where: [facility] Normal [address] [place] [address] [place] [address]- \.br\ Medications\.b r\ What When Instructions\. br\ [...] for choosing us for your care.\.br\ \.br\ [facility] CNOVon 09-19-2023 CNOV Office Visit (RADTSA ) JOSE CAN ([id number]) 1940 M Date Time Provider Department 09/19/23 9:15 AM Jc MENDIOLA During your visit today, we recorded the following information about you: Temperature Pulse Respiration Blood pressure 97.3 degrees 64/minute 16/minute 153/83 Weight 89.4 kg Jc Mendiola MD 09/19/2023 4:02 PM Signed Radiation Oncology - Follow Up Note PATIENT NAME: Jose Can PATIENT DIAGNOSIS: Prostate adenocarcinoma, initial PSA 3.1, biopsy Dayton score 3 + 4 = 7 (grade [...] ASSESSMENT/PLAN: Prostate adenocarcinoma, initial PSA 3.1, biopsy Dayton score 3 + 4 = 7 (grade [...] Mendiola MD cc: Martir Herbert II, MD [address] [place] [id number] No referring provider defined for this encounter. Allergies As of Date: 09/19/2023 Noted Allergy Reaction PENICILLINS 02/16/2023 2 - Rash SULFA (SULFONAMIDE ANTIBIOTICS) 02/16/2023 2 - Rash Date Reviewed: 09/19/2023 Reviewed by: Debra Quinn LPN - Fully Assessed Reason for Visit: Prostate Cancer [590] Primary Visit Diagnosis:Malignant neoplasm of prostate (HCC) [C61] Order(s):PSA/PROSTSPE CAG DIAG [SQPSA] Order #: [id number] FUTURE Prescriptions as of 09/19/2023 - simvastatin [...] for Encounter Date Provider Department Center 09/19/2023 [id number] MENDIOLAUSKY Encounter Status:Closed by Jc MENDIOLA on 09/19/23 [facility] Ambulatory Visit Summaryon 1 11-13-2022 Ambulatory Visit [...] EDWARDS, Abran Darling Where: [facility] Normal [address] [place] [address] \.br\ Medications\.b r\ What When Instructions\. br\ [...] for choosing us for your care.\.br\ \.br\ [facility] Lab Reportson 09-07-2023 Lab Reports [id number]#1 .00TIFF Normal [facility] Operative Reporton Operative Report [id number]#1 .00TIFF Normal [facility] RAD - MISCon 09-07-2023 RAD - MISC [id number]#1 .00TIFF Normal [facility] CNOVon 09-06-2023 CNOV Office Visit (RADTSA ) JOSE CAN ([id number]) 1940 M Date Time Provider Department 09/06/23 9:00 AM Jc MENDIOLA During your visit today, we recorded the following information about you: Jc Mendiola MD 09/06/2023 3:18 PM Signed Date: 09/06/23 Facility: [facility] Procedure: prostate transperineal brachytherapy implant Diagnosis: Prostate [...] activity seen, results documented. Edilma Mendiola MD [facility] Allergies As of Date: 09/06/2023 Noted [...] Encounter Status:Closed by Jc MENDIOLA on 09/06/23 [facility] Consultation Noteon 08-10-20 Consultation Note [id number]#1 .[facility]FF [facility] (RADTSA) JOSE CAN ([id number]) 1940 M Date Time Provider Department 07/24/23 [...] Status:Closed by DEBRA QUINN on 07/25/23 Normal [facility] ECG 12-Leadon 07-24-2023 ECG 12-Lead [id number]#1 .00TIFF Normal [facility] Formson 07-24-2023 Forms [id number]#1 .00TIFF Normal [facility] ECG 12-Leadon 07-20-2023 ECG 12-Lead [id number]#1 .00TIFF Normal [facility] Lab Reportson 07-20-2023 Lab Reports [id number]#1. 00TIFF Normal [facility] Lab Reports [id number] 0 [id number] #1.00TIFF Normal [facility] Lab Reports [id number]#1. 00TIFF Normal [facility] RAD - MISCon 07-20-2023 RAD - MISC [id number]#1. 00TIFF Normal [facility] CNOVon 07-11-2023 CNOV Office Visit (RADTSA ) JOSE CAN ([id number]) 1940 M Date Time Provider Department 07/11/23 [...] of Care Visit completed when applicable. Jc Mendioal MD Allergies As of Date: 07/11/2023 Noted [...] Encounter Status:Closed by Jc MENDIOLA on 07/12/23 [facility] 06-04-2023 [facility] Telephone (RADTSA) JOSE CAN ([id number]) 1940 M Date Time Provider Department 06/04/23 [...] Encounter Status:Closed by NICHELLE ELKINS on 06/04/23 [facility] 05-29-2023 L - -------- Specimen: [id number] Received: 05/29/23 Status: RANDI Capellan Num: [id number] Spec Type: Surgical Subm Dr: Juan Jiang MD Tissues: A Colon Biopsy (ASCENDING POLYP) Procedures: HE/2, Gross/Micro L4 -------- Age/ Patient Sex Location Account Attending Physician -------- Jose Can /M [id number] Juan Jiang MD -------- SPEC NUM: [id number] RECD: 05/29/23 STATUS: RANDI RELinda NUM: [id number] FAIZAN: 05/29/23 DR: Juan Jiang MD ENTERED: 05/29/23 CHAD [...] microscopic examination confirms the diagnosis. CPT Codes 35088 -------- -------- Specimen: [id number] Received: 05/29/23 Status: RANDI Capellan Num: [id number] Spec Type: Surgical Subm Dr: Juan Jiang MD Tissues: A Colon Biopsy (ASCENDING POLYP) Procedures: HE/Josselin, Gross/Micro L4 -------- Patient: Jose Can [id number] (Continued) -------- Signed (signature on file) Kashmir Linares MD 05/31/23 [id number] Normal [facility] Rebecca 05-02-2023 JORGE Telephone (DEVIN) JOSE CAN ([id number]) 1940 M Date Time Provider Department 05/02/23 [...] colonoscopy was done per Dr Franco at [facility] in 2015. It was normal. Dr Mendiola-- [...] Status:Closed by NICHELLE ELKINS on 05/29/23 Normal [facility] Creatinine (Bld) [Mass/Vol]O rdered By: Abran Ochoa on 12-19-2022 Creatinine [Mass/Vol] 0.9 mg/dL 0.6-1.3 [facility] Comment on above: ER/ESD physician is notified/shown all ISTAT results.Critical values may be confirmed by laboratory testing ifdeemed necessary by ER attending doctor. PSA, FREE AND TOTAL RATIOon 10-18-2022 % Free PSA 21.9 % Normal [facility] Comment on [...] men. Performed By: #### P SAFREE #### [facility] [address] [place] [address] Dr. Deisi Bush Prostate specific Ag [Mass/Vol] 3.1 ng/mL Normal 0.0-4.0 [facility] Comment on above: Result Comment: Cris PRAJAPATI methodology. . According to the [place] [employer], Serum PSA should decrease and [...] disease. Performed By: #### P SAFREE #### [facility] [address] [place] [address] Dr. Deisi Bush PSA, Free 0.68 ng/mL Normal N/A [facility] Comment on above: Result Comment: Cris baker ECLPURA methodology. Performed By: #### P SAFREE #### [facility] [address] [place] [address] Dr. Deisi Bush CBC AUTO DIFFon 03-04-2022 BASO # 0.0 103/ul Normal 0.0-0.1 [facility] Comment on above: Performed By: #### C BC #### [facility] [address] [place] [address] Dr. Deisi Bush Basophils/100 WBC (Bld) 0.6 % Normal 0.2-2.0 [facility] Comment on above: Performed By: #### C BC #### [facility] [address] [place] [address] Dr. Deisi Bush EO # 0.5 103/ul Normal 0.0-0.7 [facility] Comment on above: Performed By: #### C BC #### [facility] [address] [place] [address] Dr. Deisi Bush Eosinophils/100 WBC (Bld) 10.2 % Critically high 0.9-7.0 [facility] Comment on above: Performed By: #### C BC #### [facility] [address] [place] [address] Dr. Deisi Bush Erythrocyte distribution width (RBC) [Ratio] 13.4 % Normal 11.0-15.0 [facility] Comment on above: Performed By: #### C BC #### [facility] [address] [place] [address] Dr. Deisi Bush Hematocrit (Bld) [Volume fraction] 42.3 % Normal 42.0-54.0 [facility] Comment on above: Performed By: #### C BC #### [facility] [address] [place] [address] Dr. Deisi Bush Hemoglobin (Bld) [Mass/Vol] 14.1 g/dL Normal 14.0-18.0 [facility] Comment on above: Performed By: #### C BC #### [facility] [address] [place] [address] Dr. Deisi Bush IG # 0.01 10e3/ul Normal 0.00-0.03 [facility] Comment on above: Performed By: #### C BC #### [facility] [address] [place] [address] Dr. Deisi Bush IG % 0.2 % Normal 0.0-0.5 [facility] Comment on above: Performed By: #### C BC #### [facility] [address] [place] [address] Dr. Deisi Bush LYMPH # 2.4 103/ul Normal 1.2-3.8 [facility] Comment on above: Performed By: #### C BC #### [facility] [address] [place] [address] Dr. Diesi Bush Lymphocytes/100 WBC (Bld) 46.5 % Normal 20.5-60.0 [facility] Comment on above: Performed By: #### C BC #### [facility] [address] [place] [address] Dr. Deisi Bush MANUAL DIFF REQ NO Normal [facility] Comment on above: Performed By: #### C BC #### [facility] [address] [place] [address] Dr. Deisi Bush MCH (RBC) [Entitic mass] 30.5 pg Normal 25.9-34.0 [facility] Comment on above: Performed By: #### C BC #### [facility] [address] [place] [address] Dr. Deisi Bush MCHC (RBC) [Mass/Vol] 33.3 g/dL Normal 29.9-35.2 [facility] Comment on above: Performed By: #### C BC #### [facility] [address] [place] [address] Dr. Deisi Bush MCV (RBC) [Entitic vol] 91.4 fL Normal 80.0-94.0 [facility] Comment on above: Performed By: #### C BC #### [facility] [address] [place] [address] Dr. Deisi Bush MONO # 0.6 103/ul Normal 0.3-0.8 [facility] Comment on above: Performed By: #### C BC #### [facility] [address] [place] [address] Dr. Deisi Bush Monocytes/100 WBC (Bld) 10.6 % Normal 1.7-12.0 [facility] Comment on above: Performed By: #### C BC #### [facility] [address] [place] [address] Dr. Deisi Bush NEUT # 1.7 103/ul Normal 1.4-6.5 [facility] Comment on above: Performed By: #### C BC #### [facility] [address] [place] [address] Dr. Deisi Bush Neutrophils/100 WBC (Bld) 31.9 % Critically low 43.0-75.0 [facility] Comment on above: Performed By: #### C BC #### [facility] [address] [place] [address] Dr. Deisi Bush Platelet mean volume (Bld) [Entitic vol] 9.2 fL Critically low 9.5-13.5 [facility] Comment on above: Performed By: #### C BC #### [facility] [address] [place] [address] Dr. Deisi Bush PLT 219 103/ul Normal 150-450 [facility] Comment on above: Performed By: #### C BC #### [facility] [address] [address] [address] Deisi uBsh RBC 4.63 106/ul Critically low 4.70-6.10 [facility] Comment on above: Performed By: #### C BC #### [facility] [address] [place] [address] Dr. Deisi Bush WBC 5.2 103/ul Normal 4.0-11.0 [facility] Comment on above: Performed By: #### C BC #### [facility] [address] [place] [address] Dr. Deisi Bush LIPID PROFILEon 03-04-2022 CHOL-HDL RATIO NORM SEE BELOW Normal [facility] Comment on above: Result Comment: 3.3 - 4.4 LOW RISK 4.4 - 7.1 AVERAGE RISK 7.1 - 11.0 MODERATE RISK >11.0 HIGH RISK Performed By: #### T SH, LIPID, CMP #### [facility] [address] [place] [address] Dr. Deisi Bush Cholesterol [Mass/Vol] 125 mg/dL Normal <=200 [facility] Comment on above: Performed By: #### T SH, LIPID, CMP #### [facility] [address] [place] [address] Dr. Deisi Bush Cholesterol in HDL [Mass/Vol] 37 mg/dL Critically low 40-60 [facility] Comment on above: Performed By: #### T SH, LIPID, CMP #### [facility] [address] [place] [address] Dr. Deisi Bush Cholesterol in LDL [Mass/Vol] 75.6 mg/dL Normal [facility] Comment on above: Performed By: #### T SERGIO, LIPID, CMP #### [facility] [address] [address] [address] Deisi Bush Cholesterol.total/Chol esterol in HDL [Mass ratio] 3.4 {ratio} Normal [facility] Comment on above: Performed By: #### T SERGIO, LIPID, CMP #### [facility] [address] [address] [address] Deisi Bush HDL NORMAL > or = 60 mg/dl - LO W CARDIOVASCULAR RISK <40 mg/dl - HIGH CARDIOVASCULAR RISK Normal [facility] Comment on above: Performed By: #### T SERGIO, LIPID, CMP #### [facility] [address] [address] [address] Deisi Bush LDL CALC NORMAL SEE BELOW Normal [facility] Comment on above: Result Comment: <100 mg/dl OPTIMAL 100 - 129 mg/dl NEAR OR ABOVE OPTIMAL 130 - 159 mg/dl BORDERLINE HIGH 160 - 189 mg/dl HIGH >190 mg/dl VERY HIGH Performed By: #### T SERGIO, LIPID, CMP #### [facility] [address] [address] [address] Deisi Bush Triglyceride [Mass/Vol] 62 mg/dL Normal <=150 [facility] Comment on above: Performed By: #### T SERGIO, LIPID, CMP #### [facility] [address] [place] [address] Dr. Deisi Bush VLDL CALC 12.4 mg/dL Normal [facility] Comment on above: Performed By: #### T SERGIO, LIPID, CMP #### [facility] [address] [place] [address] Dr. Deisi Bush PROF 14(COMP METB)on 022 Albumin [Mass/Vol] 3.4 g/dL Normal 3.4-5.0 [facility] Comment on above: Performed By: #### T SERGIO, LIPID, CMP #### [facility] [address] [address] [address] Deisi Bush Albumin/Globulin [Mass ratio] 0.9 {ratio} Normal [facility] Comment on above: Performed By: #### T SERGIO, LIPID, CMP #### [facility] [address] [address] [address] Deisi Bush ALP [Catalytic activity/Vol] 73 U/L Normal 46-116 [facility] Comment on above: Performed By: #### T SH, LIPID, CMP #### [facility] [address] [address] [address] Deisi Bush ALT [Catalytic activity/Vol] 27 U/L Normal 16-63 [facility] Comment on above: Performed By: #### T SH, LIPID, CMP #### [facility] [address] [place] [address] Dr[address] Deisi Bush Anion gap [Moles/Vol] 11.6 mmol/L Normal [place] Comment on above: Performed By: #### T SH, LIPID, CMP #### [facility] [address] [address] [address] Deisi Bush AST [Catalytic activity/Vol] 22 U/L Normal 15-37 [facility] Comment on above: Performed By: #### T SH, LIPID, CMP #### [facility] [address] [address] [address] Deisi Bush Bilirubin [Mass/Vol] 1.1 mg/dL Critically high 0.2-1.0 [facility] Comment on above: Performed By: #### T SH, LIPID, CMP #### [facility] [address] [address] [address] Deisi Bush Calcium [Mass/Vol] 8.7 mg/dL Normal 8.5-10.1 [facility] Comment on above: Performed By: #### T SH, LIPID, CMP #### [facility] [address] [address] [address] Deisi Bush Chloride [Moles/Vol] 105 mmol/L Normal 98-107 [facility] Comment on above: Performed By: #### T SH, LIPID, CMP #### [facility] [address] [place] [address] [address] Deisi Bush CO2 [Moles/Vol] 27.6 mmol/L Normal 21.0-32.0 [facility] Comment on above: Performed By: #### T SH, LIPID, CMP #### [facility] [address] [address] [address] Deisi Bush Creatinine [Mass/Vol] 0.90 mg/dL Normal 0.70-1.30 [facility] Comment on above: Performed By: #### T SH, LIPID, CMP #### [facility] [address] [address] [address] Deisi Bush EGFR-AF BELARUSIAN >60 Normal >=60 [facility] Comment on above: Performed By: #### T SH, LIPID, CMP #### [facility] [address] [address] [address] Deisi Bush EGFR-NON AF BELARUSIAN >60 Normal >=60 [facility] Comment on above: Performed By: #### T SH, LIPID, CMP #### [facility] [address] [address] [address] Deisi Bush Globulin (S) [Mass/Vol] 3.6 g/dL Normal [facility] Comment on above: Performed By: #### T SH, LIPID, CMP #### [facility] [address] [address] [address] Deisi Bush Glucose [Mass/Vol] 96 mg/dL Normal 74-106 [facility] Comment on above: Performed By: #### T SH, LIPID, CMP #### [facility] [address] [address] [address] Deisi Bush Potassium [Moles/Vol] 4.2 mmol/L Normal 3.5-5.1 [facility] Comment on above: Performed By: #### T SH, LIPID, CMP #### [facility] [address] [address] [address] Deisi Bush Protein [Mass/Vol] 7.0 g/dL Normal 6.4-8.2 [facility] Comment on above: Performed By: #### T SH, LIPID, CMP #### [facility] [address] [place] [address] [address] Deiis Bush Sodium [Moles/Vol] 140 mmol/L Normal 136-[address] [facility] Comment on above: Performed By: #### T SH, LIPID, CMP #### [facility] [address] [address] [address] Deisi Bush Urea nitrogen [Mass/Vol] 16.0 mg/dL Normal 7.0-18.0 [facility] Comment on above: Performed By: #### T SH, LIPID, CMP #### [facility] [address] [address] [address] Deisi Bush Urea nitrogen/Creatinine [Mass ratio] 17.8 mg/mg Normal [facility] Comment on above: Performed By: #### T SH, LIPID, CMP #### [facility] [address] [place] [address] Dr. Deisi Bush TSHon 03-04-2022 TSH 1.259 uIU/mL Normal 0.358-3.740 [facility] Comment on above: Performed By: #### T SH, LIPID, CMP #### [facility] [address] [place] [address] Dr. Deisi Bush TSH RANGE SEE BELOW Normal [facility] Comment on above: Result Comment: <0.3 4 UIU/ml HYPERTHYROID 0.34-5.60 UIU/ml EUTHYROID >5.60 UIU/ml HYPOTHYROID Performed By: #### T SH, LIPID, CMP #### [facility] [address] [place] [address] Dr. Deisi Bush Lipid Panelon 09-21-2021 Cholesterol [Mass/Vol] 181 mg/dL Normal 125-[facility] on above: Result Comment: Low risk < 200mg/dL Borderline risk 201-239 mg/dl High risk > or equal to 240 Performed By: #### L IPD #### [facility] [address], [place] [id number] Cholesterol in HDL [Mass/Vol] 41 mg/dL Normal >40 [facility] Comment on above: Result Comment: High Cardiovascular Risk HDL <40 mg/dL Low Cardiovascular Risk HDL > or equal to 60 mg/dl Performed By: #### L IPD #### [facility] [address], [place] [id number] Cholesterol in LDL [Mass/Vol] 126 mg/dL Normal [facility] Comment on above: Result Comment: LDL ATP III CLASSIFICATION LDL less than 100 mg/dl Optimal LDL 100-129 mg/dl Near or above optimal LDL 130-159 Borderline high LDL 160-189 High LDL greater than 189 mg/dl Very High Performed By: #### L IPD #### [facility] [address], [place] [id number] Cholesterol in VLDL [Mass/Vol] 14 mg/dL Normal [facility] Comment on above: Performed By: #### L IPD #### [facility] [address], [place] [id number] Cholesterol.total/Chol esterol in HDL [Mass ratio] 4 {ratio} Normal [facility] Comment on above: Performed By: #### L IPD #### [facility] [address], [place] [id number] Triglyceride [Mass/Vol] 72 mg/dL Normal 30-150 [facility] Comment on above: Result Comment: TRIG ATPIII CLASSIFICATIONS TRIG less than 150 mg/dl Normal TRIG 150-199 mg/dl Borderline High TRIG 200-500 mg/dl High TRIG greather than 500 mg/dl Very High Performed By: #### L IPD #### [facility] [address], [place] [id number] PSA SCREEN (MEDICARE)on 08-25 TPSA 3.110 ng/mL Normal <4.000 [facility] Comment on above: Result Comment: PSA Test Method: ECLIA/Saw e 601 Performed By: #### P SA MC #### [facility] [address], [place] [id number] Vital Signs Date Time Vital Sign Value Performing Clinician Facility 11-21-2024 08:050 Body height 174 cm Martir Herbert MD Work Phone: [facility] 11-21-2024 [id number] Body mass index (BMI) [Ratio] 31.17 kg/m2 Martir Herbert MD Work Phone: [facility] 11-21-2024 08:[id number] Body weight 94.35 kg Martir Herbert MD Work Phone: [facility] 11-21-2024 08:28-0500 Diastolic blood pressure 74 mm[Hg] Martir Herbert MD Work Phone: [facility] 11-21-2024 08:28-0500 Heart rate 71 /min Martir Herbert MD Work Phone: [facility] 11-21-2024 08:28-0500 SaO2% (BldA) [Mass fraction] 96 % Martir Herbert MD Work Phone: [facility] 11-21-2024 08:28-0500 Systolic blood pressure 132 mm[Hg] Martir Herbert MD Work Phone: [facility] 07-04-2024 09:16-0400 Blood Pressure Location Abranvalentin OCHOA [facility] 07-04-2024 09:16-0400 Body temperature 98.6 [degF] Abran OCHOA [facility] 07-04-2024 09:16-0400 Diastolic blood pressure 77 mm[Hg] Abran OCHOA [facility] 07-04-2024 09:16-0400 Heart rate 64 /min Abran OCHOA [facility] 07-04-2024 09:16-0400 Respiratory rate 17 /min Abran OCHOA [facility] 07-04-2024 09:16-0400 Systolic blood pressure 131 mm[Hg] Abran OCHOA [facility] 04-10-2024 09:29-0400 Body mass index (BMI) [Ratio] 27.77 kg/m2 KENDRICK Mendiola MD Work Phone: [facility] 04-10-2024 09:29-0400 Body temperature 97.39 [degF] KENDRICK Mendiola MD Work Phone: [facility] 04-10-2024 09:29-0400 Body weight 85.3 kg KENDRICK Mendiola MD Work Phone: [facility] 04-10-2024 09:29-0400 Diastolic blood pressure 78 mm[Hg] KENDRICK Mendiola MD Work Phone: [facility] 04-10-2024 09:29-0400 Heart rate 71 /min KENDRICK Mendiola MD Work Phone: [facility] 04-10-2024 09:29-0400 Respiratory rate 18 /min KENDRICK Mendiola MD Work Phone: [facility] 04-10-2024 09:29-0400 SaO2% (BldA) [Mass fraction] 96 % KENDRICK Mendiola MD Work Phone: [facility] 04-10-2024 09:29-0400 Systolic blood pressure 152 mm[Hg] KENDRICK Mendiola MD Work Phone: [facility] 12-28-2023 08:06-0400 Blood Pressure Location Abran OCHOA [facility] 12-28-2023 08:06-0400 Diastolic blood pressure 87 mm[Hg] Abran OCHOA [facility] 12-28-2023 08:06-0400 Heart rate 51 /min Abran OCHOA [facility] 12-28-2023 08:06-0400 Respiratory rate 16 /min Abran OCHOA [facility] 12-28-2023 08:06-0400 Systolic blood pressure 131 mm[Hg] Abran OCHOA [facility] 12-19-2023 09:30-0400 Diastolic blood pressure 89 mm[Hg] II Martir Herbert Work Phone: [facility] 12-19-2023 09:30-0400 Heart rate 51 /min II Martir Herbert Work Phone: [facility] 12-19-2023 09:30-0400 Respiratory rate 16 /min II Martir Herbert Work Phone: [facility] 12-19-2023 09:30-0400 SaO2% (BldA) [Mass fraction] 97 % II Martir Herbert Work Phone: [facility] 12-19-2023 09:30-0400 Systolic blood pressure 165 mm[Hg] II Martir Herbert Work Phone: [facility] 12-19-2023 07:04-0400 Body height 175.26 cm II Martir Herbert Work Phone: [facility] 12-19-2023 07:04-0400 Body mass index (BMI) [Ratio] 28.8 kg/m2 II Martir Herbert Work Phone: [facility] 12-19-2023 07:04-0400 Body weight 88.45 kg II Martir Herbert Work Phone: [facility] 12-19-2023 06:22-0400 Body temperature 97.6 [degF] II Martir Herbert Work Phone: [facility] 12-18-2023 11:59-0400 Body height 175.26 cm [facility] 12-18-2023 11:59-0400 Body mass index (BMI) [Ratio] 26.6 kg/m2 [facility] 12-18-2023 11:59-0400 Body temperature 97.6 [degF] [facility] 12-18-2023 11:59-0400 Body weight 81.64 kg [facility] 12-18-2023 11:59-0400 Diastolic blood pressure 72 mm[Hg] [facility] 12-18-2023 11:59-0400 Heart rate 62 /min [facility] 12-18-2023 11:59-0400 Respiratory rate 16 /min [facility] 12-18-2023 11:59-0400 SaO2% (BldA) [Mass fraction] 98 % [facility] 12-18-2023 11:59-0400 Systolic blood pressure 120 mm[Hg] [facility] 10-08-2023 09:53-0500 Blood Pressure Location Abran OCHOA [facility] 10-08-2023 09:53-0500 Diastolic blood pressure 74 mm[Hg] Abran OCHOA [facility] 10-08-2023 09:53-0500 Heart rate 72 /min Abran OCHOA [facility] 10-08-2023 09:53-0500 Respiratory rate 16 /min Abran OCHOA [facility] 10-08-2023 09:53-0500 Systolic blood pressure 130 mm[Hg] Abranvalentin OCHOA [facility] 05-29-2023 09:10-0400 Diastolic blood pressure 67 mm[Hg] II Martir Herbert Work Phone: [facility] 05-29-2023 09:10-0400 Heart rate 51 /min II Martir Herbert Work Phone: [facility] 05-29-2023 09:10-0400 Respiratory rate 16 /min II Martir Herbert Work Phone: [facility] 05-29-2023 09:10-0400 SaO2% (BldA) [Mass fraction] 96 % II Martir Herbert Work Phone: [facility] 05-29-2023 09:10-0400 Systolic blood pressure 131 mm[Hg] II Martir Herbert Work Phone: [facility] 05-29-2023 07:30-0400 Body height 175.26 cm II Martir Herbert Work Phone: [facility] 05-29-2023 07:30-0400 Body temperature 98 [degF] II Martir Herbert Work Phone: [facility] 05-29-2023 07:30-0400 Body weight 81.64 kg II Martir Herbert Work Phone: [facility] 02-05-2023 08:47-0400 Diastolic blood pressure 80 mm[Hg] Abran OCHOA [facility] 02-05-2023 08:47-0400 Mean blood pressure 103 mm[Hg] Abran OCHOA [facility] 02-05-2023 08:47-0400 Systolic blood pressure 150 mm[Hg] Abran OCHOA [facility] 02-05-2023 08:42-0400 Blood Pressure Location Abran OCHOA [facility] 02-05-2023 08:42-0400 Diastolic blood pressure 80 mm[Hg] Abran OCHOA [facility] 02-05-2023 08:42-0400 Heart rate 53 /min Abran OCHOA [facility] 02-05-2023 08:42-0400 Systolic blood pressure 154 mm[Hg] Abran OCHOA [facility] 12-19-2022 06:51-0400 Body height 177.8 cm II Martir Herbert Work Phone: [facility] 12-19-2022 06:51-0400 Body weight 81.64 kg II Martir Herbert Work Phone: [facility] 12-04-2022 12:26-0400 Blood Pressure Location Abranvalentin OCHOA [facility] 12-04-2022 12:26-0400 Diastolic blood pressure 70 mm[Hg] Abranvalentin OCHOA [facility] 12-04-2022 12:26-0400 Heart rate 64 /min Abranvalentin OCHOA [facility] 12-04-2022 12:26-0400 Systolic blood pressure 149 mm[Hg] Abranvalentin OCHOA [facility] Encounters Encounter Date Encounter Type Care Provider Facility Start: 07-06-2025 ambulatory Abran OCHOA Facili ty:[facility] Start: 01-01-2025 End: 01-01-2025 Clinisync Result Encounter Generic External Data Provider [facility] Unsolicited Start: 01-01-2025 End: 01-01-2025 Clinisync Result Encounter Generic External Data Provider [facility] External Department Unsolicited Start: 11-21-2024 End: 11-21-2024 Bamboo flowsheet Martir [...] Start: 07-04-2024 End: 07-04-2024 ambulatory Abran OCHOA Facility:[facility] Start: 07-04-2024 End: 07-04-2024 Patient encounter procedure Abran OCHOA [facility] Start: 07-01-2024 End: 07-01-2024 Clinisync [...] 04-10-2024 End: 04-10-2024 ambulatory MARTIR HERBERT II Facility:[facility] Start: 03-26-2024 End: 03-26-2024 ambulatory MARTIR HERBERT Not Available Start: 12-28-2023 End: 12-28-2023 ambulatory Abran OCHOA Facility:[facility] Start: 12-28-2023 End: 12-28-2023 Patient encounter procedure Abran OCHOA [facility] Start: 12-20-2023 End: 12-20-2023 ambulatory MARTIR HERBERT Not Available Start: 12-19-2023 Non-patient / Non-visit II Domenic Herbert Work Phone: [facility] Work Phone: Start: 12-19-2023 End: 12-19-2023 ambulatory Armani Kelly Facility:[facility] Start: 12-19-2023 End: 12-19-2023 Admission to same day surgery center II Martir Herbert Work Phone: [facility] [place] Start: 12-19-2023 End: 12-19-2023 ambulatory II Martir Herbert Work Phone: [facility] Work Phone: Start: 12-18-2023 End: 12-18-2023 ambulatory [facility] Work Phone: Start: 12-18-2023 End: 12-18-2023 Patient encounter procedure [facility] Work Phone: Start: 12-06-2023 End: 12-06-2023 ambulatory MARTIR HERBERT Not Available Start: 10-11-2023 End: 10-11-2023 ambulatory MARTIR B HERBERT II Facility:[facility] Start: 10-08-2023 End: 10-08-2023 ambulatory Abran OCHOA Facility:[facility] Start: 10-08-2023 End: 10-08-2023 Patient encounter procedure Abran OCHOA [facility] Start: 10-03-2023 End: 10-03-2023 ambulatory MARTIR B HERBERT II Facility:[facility] Start: 10-03-2023 End: 10-03-2023 Subsequent hospital visit by physician [facility] Scan Yunier Lewis Work Phone: Radiology [facility] Start: 09-21-2023 End: 09-21-2023 ambulatory Abran OCHOA Facility:[facility] Start: 09-21-2023 End: 09-21-2023 Patient encounter procedure Abran OCHOA [facility] Start: 09-19-2023 End: 09-19-2023 ambulatory MARTIR B KEON II Facility:[facility] Start: 09-12-2023 End: 09-12-2023 ambulatory Abran OCHOA Facility:[facility] Start: 09-12-2023 End: 09-12-2023 Patient encounter procedure Abran OCHOA [facility] Start: 09-06-2023 End: 09-06-2023 ambulatory MARTIR B HERBERT II Facility:[facility] Start: 09-06-2023 End: 09-06-2023 Patient encounter procedure Jc Mendiola MD Work Phone: Radiation Oncology Comment on above: Malignant neoplasm o f prostate (HCC) (Primary Dx) Start: 09-06-2023 End: 09-06-2023 ambulatory Abran OCHOA Facility:[id number] Start: 08-08-2023 ambulatory Abran OCHOA Facili ty:[facility] Start: 07-25-2023 [facility] Start: 07-24-2023 Telephone encounter Jc Chirag Mendiola MD Work Phone: Radiation Oncology Comment on above: Appointment Start: 07-11-2023 Patient encounter procedure Jc Mendiola MD Work Phone: [facility] Start: 07-11-2023 Radiation Oncology Note G Walter Mendiola MD Work Phone: Radiation Oncology Comment on above: Simulation Note Start: 07-11-2023 End: 07-11-2023 ambulatory MARTIR HERBERT II Facility:[facility] Start: 05-29-2023 End: 05-29-2023 ambulatory Martir Herbert Facility:[facility] Start: 05-29-2023 End: 05-29-2023 Admission to same day surgery center II Martir Herbert Work Phone: [facility] Work Phone: Start: 05-29-2023 End: 05-29-2023 ambulatory II Martir Herbert Work Phone: [facility] Work Phone: Start: 05-23-2023 Patient encounter procedure [facility] Provider [facility] Start: 05-02-2023 Telephone encounter Jc Chirag Mendiola MD Work Phone: Radiation Oncology Comment on above: Constipation; Rectal Bleeding; Future Appointment Start: 02-21-2023 Patient encounter [facility] Start: 02-05-2023 End: 02-05-2023 Patient encounter procedure Abran OCHOA [facility] Start: 01-16-2023 End: 01-16-2023 Patient encounter procedure Abran OCHOA [facility] Start: 12-19-2022 End: 12-19-2022 ambulatory II Martir Herbert Work Phone: [facility] Work Phone: Start: 12-19-2022 End: 12-19-2022 Patient encounter procedure II Martir Herbert Work Phone: [facility] [place] Work Phone: Start: 12-04-2022 End: 12-04-2022 Patient encounter procedure Abran OCHOA [facility] Start: 10-17-2022 End: 10-18-[address] ABRAN OCHOA Facility:[facility] Start: 09-22-2022 End: 09-22-2022 Patient encounter procedure Abran OCHOA [facility] Start: 03-04-2022 End: 03-05-[address] MARTIR HERBERT Facility:[facility] Procedures Date Procedure Procedure Detail Performing Clinician Start: 01-01-2025 ALL SED RATE Generic Ex ternal Data Provider Start: 11-14-2024 ALL CBC WITH AUTO DIFF [...] f prostate using ultrasound guidance Abranvalentin OCHOA Esophageal hiatus he rnia repair Abranvalentin OCHOA Hemorrhoidectomy Abran CLYDE BRUSH Structure of anterio r temporal artery (body structure) Abranvalentin OCHOA Plan of Treatment Date Care Activity Detail Author Start: 09-19-2031 Urine microalbumin profile DTaP,Tdap,Td Vaccine (2 - Td or Tdap) [facility] Start: 05-28-2025 End: 05-28-2025 Patient encounter procedure 05/28/2025 8:30 AM EDT Office Visit [facility] [address] [facility] [address] [place] [address] Martir Herbert MD [address] [facility] [address] [place], [place] [id number] [facility] Start: 04-09-2025 End: 04-09-2025 Patient encounter procedure 04/09/2025 9:00 AM EDT Office Visit Rad[facility]cology [address] [place] [address] Jc Mendiola MD [address] [place] [address] Followup Radiation Oncology Comment on above: Followup Start: 11-21-2024 End: 11-21-2024 Patient encounter procedure [facility] Comment on above: Arrived Start: 09-29-2024 End: 09-29-2024 Patient encounter procedure 09/29/2024 8:30 AM EST Office Visit [facility] [address] [facility] [address] [place] [address] Martir Herbert MD [address] [facility] [address] [place] [address] [facility] Start: 05-25-2024 Covid-19 Vaccine ( season) Covid-19 Vaccine () [facility] Start: 05-25-2024 Influenza vaccination Influenza Vacc ine (#1) [facility] Start: 12-19-2023 [facility] Start: 12-19-2023 [facility] Start: 11-29-2023 Covid-19 Vaccine ( season) Covid-19 Vaccine () [facility] Start: 09-24-2023 Advance Directive Discussion Advance Directive Discussion [facility] Start: 09-24-2023 Behavioral Health Screening Behavioral Health Screening [facility] Start: 05-29-2023 [facility] Start: 05-25-2023 Covid-19 Vaccine ( season) Covid-19 Vaccine () [facility] Start: 05-25-2023 Influenza vaccination C [facility] Start: 12-11-2022 COVID-19 VACCINE (5 - Pfizer series) COVID-19 VACCINE (5 - Pfizer series) [facility] Start: 09-24-2022 ADVANCE DIRECTIVE DISCUSSION ADVANCE DIRECTIVE DISCUSSION [facility] Start: 09-24-2022 DEPRESSION ASSESSMENT DEPRESSION ASS ESSMENT [facility] Start: 2006 PNEUMOCOCCAL: 65+ (1 - PCV) PNEUMOCOCCAL: 65+ (1 - PCV) [facility] Start: 2001 RSV Vaccine (1 - 1-d ose 60+ series) RSV Vaccine (1 - 1-dose 60+ series) [facility] Start: 11-24-1991 SHINGRIX VACCINE (1 of 2) SHINGRIX VACCINE (1 of 2) [facility] Start: 1986 DIABETES SCREEN [facility]EN [facility] Start: 1986 Diabetes Screening Diabetes Screenin g [facility] Start: 1960 Urine microalbumin profile DTAP,TDAP,TD (1 - Tdap) [facility] Start: 11-24-1959 Anxiety Screening Anxiety Screening [facility] Start: 11-24-1959 Depression Screening Depression Scre ening [facility] Patient referral [facility] Work Phone: [facility] Immunizations Immunization Date Immunization Notes Care Provider [facility] 07-04-2024 influenza, high dose seasonal, preservative-free Martir Herbert MD Work Phone: [facility] 11-16-2023 RSV, recombinant, protein subunit RSVpreF, adjuvant reconstitu, 120mcg/0.5mL, PF (Arexvy) Martir Herbert MD Work Phone: [facility] 07-31-2023 COVID-19 (PFIZER) 12Y and older II Martir Herbert Work Phone: [facility] 07-31-2023 influenza virus vacc ine, unspecified formulation Abran OCHOA [facility] 07-31-2023 Influenza, Seasonal, Quadrivalent, Adjuvanted Generic Provider [facility] 08-13-2022 influenza virus vacc ine, unspecified formulation Abran OCHOA [facility] 08-13-2022 Influenza, Seasonal, Quadrivalent, Adjuvanted Generic Provider [facility] 08-13-2022 SARS-CoV-2 (COVID-19 ) [id number] Abran OCHOA [facility] 12-18-2021 zoster vaccine recombinant Abran LADAN [facility] 09-21-2021 zoster vaccine recombinant Abran OCHOA [facility] 09-19-2021 tetanus toxoid, redu lester diphtheria toxoid, and acellular pertussis vaccine, adsorbed Abran OCHOA [facility] 08-25-2021 influenza virus vacc ine, unspecified formulation Abran OCHOA [facility] 06-25-2021 influenza virus vacc ine, unspecified formulation Abran OCHOA [facility] 06-25-2021 Influenza, Seasonal, Quadrivalent, Adjuvanted Generic Provider [facility] 06-25-2021 SARS-CoV-2 (COVID-19 ) mRNA BNT-162b2 vax Abran OCHOA [facility] Comment on above: Result Comment: 2022: [id number] 11-14-2020 SARS-CoV-2 (COVID-19 ) mRNA BNT-162b2 vax Abran OCHOA [facility] Comment on above: Result Comment: 2022: [id number] 10-24-2020 SARS-CoV-2 (COVID-19 ) mRNA BNT-162b2 vax Abran OCHOA [facility] Comment on above: Result Comment: 2022: [id number] 07-03-2020 influenza, high dose seasonal, preservative-free Generic Provider [facility] 06-28-2020 influenza virus vacc ine, unspecified formulation Abran OCHOA [facility] 07-02-2019 influenza virus vacc ine, unspecified formulation Abran OCHOA [facility] 07-02-2019 pneumococcal conjuga te vaccine, 13 valent Abran OCHOA [facility] 07-02-2019 Seasonal trivalent influenza vaccine, adjuvanted, preservative free Generic Provider [facility] 06-29-2018 influenza virus vacc ine, unspecified formulation Abran OCHOA [facility] 06-29-2018 Seasonal trivalent influenza vaccine, adjuvanted, preservative free Generic Provider [facility] 06-21-2017 influenza virus vacc ine, unspecified formulation Abran OCHOA [facility] 06-21-2017 influenza, high dose seasonal, preservative-free Martir Herbert MD Work Phone: [facility] 08-18-2015 influenza virus vacc ine, unspecified formulation Abran OCHOA [facility] 08-18-2015 influenza, high dose seasonal, preservative-free Generic Provider [facility] 06-23-2014 influenza virus vacc ine, unspecified formulation Abran OCHOA [facility] 06-23-2014 influenza, seasonal, injectable, preservative free Generic Provider [facility] 07-01-2013 influenza virus vacc ine, unspecified formulation Abran OCHOA [facility] 07-01-2013 influenza, seasonal, injectable Martir Herbert MD Work Phone: [facility] 07-01-2013 zoster vaccine, live Abran OCHOA [facility] 10-05-2009 pneumococcal polysaccharide vaccine, 23 valent Generic Provider [facility] Payers Date Payer Category Payer Self-pay 2022 Private Health Insurance [id number] 2006 Medicare [id number] 1959 Medicare [id number] 1959 Private Health Insurance [id number] 1940 Unknown [id number] 1941 Unknown [id number] 2.16.840.1.495778.3.579.2.593 1941 Unknown [id number] 2.16.840.1.552325.3.579.2.727 1941 Unknown [id number] 2.16.840.1.433829.3.579.2.727 1941 Unknown [id number] 2.16.840.1.948417.3.579.2.727 1941 Unknown [id number] 2.16.840.1.390121.3.579.2.727 1941 Unknown [id number] 2.16.840.1.083261.3.579.2.727 1941 Unknown [id number] 2.16.840.1.811327.3.579.2.727 1941 Unknown [id number] 2.16.840.1.010030.3.579.2.727 1941 Unknown [id number] 2.16.840.1.274309.3.579.2.727 1941 Unknown [id number] 2.16.840.1.641343.3.579.2.1259 1941 Unknown [id number] 2.16.840.1.928448.3.579.2.1259 1941 Unknown [id number] 2.16.840.1.449343.3.579.2.1259 1941 Unknown [id number] 2.16.840.1.930851.3.579.2.1259 Unknown Insurance No Card [id number] Unknown [id number] 2.16.840.1.383410.3.579.2.531 Unknown [id number] 2.16.840.1.928936.3.579.2.531 Social History Date Type Detail Facility Start: 09-01-2020 End: 11-12-2023 Tobacco smoking status Never smoked tobacco (finding) [facility] Tobacco smoking status Never [facility] Start: 02-16-2023 End: 11-21-2024 Sex Assigned At Male [facility] Start: 1940 Sex Assigned At Male [facility] Start: 02-16-2023 End: 11-12-2023 Tobacco use and exposure Smokeless tobacco non-user [facility] Start: 02-16-2023 End: 09-19-2023 Alcohol intake Ex-drinker (finding) [facility] Start: 1940 Sex Assigned At Not on file [facility] Start: 02-16-2023 End: 11-21-2024 History of Social function [facility] Goals Date Patient Goal Desired Activity /State Functional Status Date Assessment Result Facility 07-04-2024 Functional Status N/A [facility] 12-28-2023 Functional Status N/A [facility] 10-08-2023 Functional Status N/A [facility] 02-05-2023 Functional Status N/A [facility] 12-04-2022 Functional Status N/A [facility] Clinical Notes 02-23-2022 to 11-21-2024 Martir Herbert [...] Do you have a medical power of personal injury attorney?: Yes Who is your medical power of personal injury attorney?: daughter Objective : BP 132/74 Pulse [...] November 21, 2024 documented in this encounter [facility] 07-04-2024 Hospital Discharge instructions Patient Education 07/04/2024 [...] under a microscope. This is called the Dayton score and the total score can range from 6 10, indicating how likely it is that the cancer will spread (metastasize) to other parts of the body. The higher the score, the greater the likelihood that the cancer will spread. Dayton 6 or lower: This indicates that the cancer cells look similar to normal prostate cells (well differentiated). Alpa 7: This indicates that the cancer cells look somewhat similar to normal prostate cells (moderately differentiated). Dayton 8, 9, or 10: This indicates that [...] stress of having cancer. General instructions Take dohv-pqz-dhdilkx and prescription medicines only as told by your health care provider. If you have to go to the hospital, notify your cancer specialist (oncologist). Keep all follow-up visits. This is important. Where to find more information [place] Cancer Society: www.cancer.org Italian Society of Clinical Oncology: www.cancer.net National Cancer Olin: www.cancer.gov Contact a health care provider if: [...] provider. Document Revised: 12/07/2021 Document Reviewed: 12/07/2021 [employer] Patient Education 2023 [employer]. Follow Up Care 12/28/2023 08:57:43 With:LADAN EDWARDS, Abran Darling, URL Address: [facility] [address] , [place] [address]- When: Unknown [facility] 07-04-2024 Note Patient Education Oncology [...] the prostate gla (more content not included)... [facility] 04-10-2024 History of Present illness Narrative Radiation Oncology - Follow Up Note PATIENT NAME: Jose Can PATIENT DIAGNOSIS: Prostate adenocarcinoma, initial PSA 3.1, biopsy Dayton score 3 + 4 = 7 (grade [...] Mendiola MD cc: Martir Herbert II, MD [address] [place] [address] Dr. Ochoa documented in this encounter [facility] 04-10-2024 Note HNO ID: [id number] Author: Jc MENDIOLA MD Service: ? Author Type: Physician Type: Progress Notes Filed: 04/14/2024 10:59 Note Text: Radiation Oncology - Follow Up Note PATIENT NAME: Jose Can PATIENT DIAGNOSIS: Prostate adenocarcinoma, initial PSA 3.1, biopsy Dayton score 3 + 4 = 7 (grade [...] ASSESSMENT/PLAN: Prostate adenocarcinoma, initial PSA 3.1, biopsy Dayton score 3 + 4 = 7 (grade [...] Mendiola MD cc: Martir Herbert II, MD [address] [place] [address] Dr. Ochoa [facility] 04-10-2024 Nurse Note AUMg 4 Nichelle Elkins RN [facility] 04-10-2024 Nurse Note LAY 4 Nichelle Elkins RN documented in this encounter [facility] 12-28-2023 Hospital Discharge instructions Patient Education [...] urethra. Follow these instructions at home: Take vzzu-eti-fwkjpfh and prescription medicines only as told by [...] provider. Document Revised: 03/29/2022 Document Reviewed: 03/29/2022 [employer] Patient Education 2022 [employer]. Follow Up Care 12/04/2022 12:55:53 With:LADAN EDWARDS, Abran Darling, URL Address: [address] [place] [address]- When: Unknown [facility] 10-11-2023 Note HNO ID: [id number] Author: Jc MENDIOLA MD Service: ? Author [...] Mendiola MD cc: Martir Herbert II, MD [address] [place] [address] Dr. Ochoa [facility] 10-08-2023 Hospital Discharge instructions Patient [...] treat constipation, you may need to: Take zjcg-yyk-vvoqztg or prescription medicines. Eat foods that are high in fiber, such as beans, whole grains, and fresh fruits and vegetables. Limit foods that are high in fat and processed sugars, such as fried or sweet foods. General instructions Take sejk-flg-zcjnqbx and prescription medicines only as told by [...] provider. Document Revised: 12/07/2021 Document Reviewed: 12/07/2021 [employer] Patient Education 2022 [employer]. Follow Up Care 06/26/2023 12:00:57 With:LADAN EDWARDS, Abran Darling, URL Address: [facility] [address], [place] [address]- [phone] When: Unknown Comments:3 mos w/ PSA [facility] 10-03-2023 Note HNO ID: [id number] Author: Jc MENDIOLA MD Service: ? Author Type: Physician Type: Progress Notes Filed: 10/12/2023 11:35 Note Text: Patient: Jose Can Date:10/03/2023 [facility] Department of Radiation Oncology [facility] RADIATION ONCOLOGY POST SEED IMPLANT SIMULATION [...] Electronically Signed CHIRAG MENDIOLA M.D. 1:35 AM [facility] 09-19-2023 Note HNO ID: [id number] Author: Jc Mendiola MD Service: ? Author [...] Mendiola MD cc: Martir Herbert II, MD [address] [place] [address] No referring provider defined for this encounter. [facility] 09-06-2023 Note HNO ID: [id number] Author: Jc Mendiola MD Service: ? Author Type: Physician Type: Progress Notes Filed: 09/06/2023 3:18 PM Note Text: Date: 09/06/23 Facility: [facility] Procedure: prostate transperineal brachytherapy implant Diagnosis: Prostate [...] activity seen, results documented. Edilma Mendiola MD [facility] 09-06-2023 History of Present illness Narrative Date: 09/06/23 Facility: [facility] Procedure: prostate transperineal brachytherapy implant Diagnosis: Prostate [...] activity seen, results documented. Edilma Mendiola MD [facility] documented in this encounter [facility] 08-25-2023 Note HNO ID: [id number] Author: Jc Mendiola MD Service: ? Author Type: Physician Type: Progress Notes Filed: 09/06/2023 12:36 AM Note Text: JOSE CAN [id number] 08/25/2023 [facility] Department of Radiation Oncology [facility] RADIATION ONCOLOGY BRACHYTHERAPY TREATMENT PLANNING NOTE [...] Chirag Mendiola M.D. / NATY 33:42 PM [facility] 07-25-2023 Miscellaneous Notes Enriqueta, pt's dtr, [...] Debra Quinn RN documented in this encounter [facility] 07-12-2023 Note HNO ID: [id number] Author: Jc Mendiola MD Service: ? Author [...] Visit completed when applicable. Jc Mendiola MD [facility] 07-11-2023 History of Present illness Narrative JOSE CAN [id number] 07/11/2023 [facility] Department of Radiation Oncology [facility] RADIATION ONCOLOGY SIMULATION NOTE DATE OF SIMULATION: 07/11/2023 MACHINE: [employer] Focus 500 Diagnosis: 185 (Prostate Gland) AREA:Prostate PATIENT POSITION: Supine CONTRAST: None PROTOCOL: None CONCURRENT THERAPY: None FIXATION DEVICE: UTS Stabilization device by [employer]. PROCEDURE: Patient was simulated in exaggerated dorsal lithotomy position. Serial images of the prostate were acquired using TRUS and reconstructed in 3D space. These images were imported into [employer] Prostate planning system where a plan was generated. ASSESSMENT/PLAN: Patient tolerated simulation procedure well. Electronically Signed Chirag Mendiola M.D. / NATY 35:19 PM documented in this encounter [facility] 07-11-2023 Note HNO ID: [id number] Author: Jc Mendiola MD Service: ? Author Type: Physician Type: Progress Notes Filed: 07/12/2023 12:35 AM Note Text: JOSE CAN [id number] 07/11/2023 [facility] Department of Radiation Oncology [facility] RADIATION ONCOLOGY SIMULATION NOTE DATE OF SIMULATION: 07/11/2023 MACHINE: [employer] Focus 500 Diagnosis: 185 (Prostate Gland) AREA:Prostate PATIENT POSITION: Supine CONTRAST: None PROTOCOL: None CONCURRENT THERAPY: None FIXATION DEVICE: UTS Stabilization device by [employer]. PROCEDURE: Patient was simulated in exaggerated dorsal lithotomy position. Serial images of the prostate were acquired using TRUS and reconstructed in 3D space. These images were imported into [employer] Prostate planning system where a plan was generated. ASSESSMENT/PLAN: Patient tolerated simulation procedure well. Electronically Signed Chirag Mendiola M.D. / NATY 35:19 PM [facility] 05-29-2023 Procedure note [facility] 05-03-2023 Miscellaneous Notes Patients daughter called back [...] colonoscopy was done per Dr Franco at [facility] in [address]. [address] Mendiola-- please advise. Nichelle Elkins RN documented in this encounter [facility] 02-05-2023 Hospital Discharge instructions Patient [...] similar to normal prostate cells (well differentiated). Dayton 7: This indicates that the cancer cells look somewhat similar to normal prostate cells (moderately differentiated). Dayton 8, 9, or 10: This indicates that [...] stress of having cancer. General instructions Take xsjh-dot-jhxgeme and prescription medicines only as told by your health care provider. If you have to go to the hospital, notify your cancer specialist (oncologist). Keep all follow-up visits. This is important. Where to find more information Italian Cancer Society: www.cancer.org Italian Society of Clinical Oncology: www.cancer.net National Cancer Olin: www.cancer.gov Contact a health care provider if: [...] provider. Document Revised: 12/07/2021 Document Reviewed: 12/07/2021 [employer] Patient Education 2022 [employer]. Follow Up Care 01/04/2023 12:26:51 With:LADAN EDWARDS, Abran Darling, URL Address: [facility] [address] [place] [phone] When:Within 6 Month(s) Comments:Will refer to Dr. Mendiola [facility] 01-16-2023 Hospital Discharge instructions Patient [...] for your post-operative appointment in 1-2 weeks [phone] or [phone] Follow Up Care 01/04/2023 11:45:40 With:Abran OCHOA Address: [facility] [address] [place] [address]- Business (1) When: Unknown Comments:Keep scheduled appointment [facility] 12-04-2022 Hospital Discharge instructions Patient [...] urethra. Follow these instructions at home: Take qrtx-zna-ezurzcv and prescription medicines only as told by [...] 09/10/2006 Document Revised: 08/05/2019 Document Reviewed: 10/15/2017 [employer] Patient Education [employer]. Follow Up Care 09/22/2022 08:10:59 With:Abran OCHOA MD, URL Address: [facility] [address] [place] [address] [place] [address]- When: Unknown [facility] 02-23-2022 Hospital Discharge instructions Follow Up Care 02/23/2022 13:31:33 With:Abran OCHOA MD, URL Address: [address] [place] [address]- When: Unknown [facility] Evaluation + Plan note Future Appointments Appointment Date:12/04/2022 12:15:00 PM Scheduled Provider:Abran OCHOA MD Location:[facility] Appointment Type:URO Office Visit [facility] Evaluation + Plan note Future Appointments Appointment Date:12/07/2023 08:00:00 AM Scheduled Provider:Abran OCHOA MD Location:[facility] Appointment Type:URO Office Visit [facility] Evaluation + Plan note Future Appointments Appointment Date:02/05/2023 08:30:00 AM Scheduled Provider:Abran [facility]A [facility] Type:[facility] Office Visit Appointment Date:12/07/2023 08:00:00 AM Scheduled Provider:Abran OCHOA MD [facility] App[facility] Type:URO Office Visit Diagnostic Tests PendingProstate Histology ([facility]) 01/16/23 [facility] Evaluation + Plan note Future Appointments Appointment Date:12/07/2023 08:00:00 AM Scheduled Provider:Abran OCHOA MD [facility] Appointment Type:URO Office Visit Diagnostic Tests PendingPSA Total 02/05/23 [facility] Evaluation + Plan note Future Appointments Appointment Date:10/08/2023 09:30:00 AM Scheduled Provider:Abran OCHOA MD [facility] Type:URO Office Visit Appointment Date:12/07/2023 08:00:00 AM Scheduled Provider:Abran OCHOA MD [facility] Type:URO Office Visit [facility] Evaluation + Plan note Future Appointments Appointment Date:12/28/2023 08:00:00 AM Scheduled Provider:Abran OCHOA MD [facility] Type:URO Office Visit Diagnostic Tests PendingPSA Total 10/08/23 [facility] Evaluation + Plan note Future Appointments Appointment Date:07/04/2024 09:15:00 AM Scheduled Provider:Abran OCHOA MD [facility] Type:URO Office Visit Diagnostic Tests PendingPSA Total 04/24/24 [facility] Evaluation + Plan note Future Appointments Appointment Date:07/06/2025 08:45:00 AM Scheduled Provider:Abran OCHOA MD Location:[facility] Appointment Type:URO Office Visit [facility] Evaluation note No assessment inform ation available [facility] Work Phone: Evaluation note Diagnosis Rectal bleeding- Primary Hemorrhage of rectum and anus Constipation, unspecified constipation type Prostate cancer (HCC) Malignant neoplasm of prostate [facility] Malignant neoplasm of prostate (HCC)- Primary Malignant neoplasm of prostate [facility] Diagnosis Onset Date Resolution Status Temporal arteritis acute [facility] Work Phone: Evaluation note* Diagnosis Malignant neoplasm of prostate (HCC)- Primary Malignant neoplasm of prostate [facility] Routine general medical examination at health care facility- Primary Routine general medical examination at a health care facility ACP (advance care planning) Other specified counseling Benign essential hypertension (CMS/HCC) Essential hypertension, benign Mixed hyperlipidemia (CMS/HCC) Mixed hyperlipidemia Malignant neoplasm of prostate (CMS/HCC) Malignant neoplasm of prostate 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 Work Phone: Hospital course Narrative No data available for this section [facility] Hospital Discharge instructions Additional Instructions [...] years. -Follow up with PCP. -Office number [phone]. [facility] Work Phone: Hospital Discharge instructions No data available for this section [facility] progress note No data available for this section [facility] reason for referral (narrative) , Refer to Dr. Mendiola for [employer] Referred by: Abran OCHOA MD [facility] Summary Purpose Family History Relationship [...] content) DATE CREATED AUTHOR 09/22/2021 [facility] dical Specialist DATE CREATED AUTHOR AUTHOR'S ORGANIZ ATION 10/18/2022 [facility] DATE CREATED AUTHOR AUTHOR'S ORGANIZ ATION 02/09/2024 [facility] DATE CREATED AUTHOR AUTHOR'S ORGANIZ ATION 04/16/2024 [facility] DATE CREATED AUTHOR AUTHOR'S ORGANIZ ATION 07/06/2024 [facility] DATE CREATED AUTHOR AUTHOR'S ORGANIZ ATION 2024 [facility] dical Specialists EPIC Patient Care team informatio n (unrecognized section and content) Team Status: Active Member Role Status Dates Martir Herbert II MD Primary Care Provider Active Team Status: Inactive Member Role Status Dates Martir Herbert II MD Primary Care Provider Active Abran Ochoa MD Attending Provider Active Application Packaging Specialist Relationship Specialty Start Date End Date Martir Herbert II [address] [place] [address] PCP - General Internal Medicine 02/06/23 [employer] Packaging Specialist Relationship Specialty Start Date End Date Martir Herbert II, MD [address] [place] [address] PCP - General Internal Medicine 02/06/23 Team Status: Inactive Member Role Status Dates Martir Herbert II MD Primary Care Provider Active Juan Jiang MD Attending Provider Active Application Packaging Specialist Relationship Specialty Start Date End Date Martir Herbert II, MD [address] [place] [address] PCP - General Internal Medicine 02/06/23 Application Packaging Specialist Relationship Specialty Start Date End Date Martir Herbert II, MD [address] [place] [address] PCP - General Internal Medicine 02/06/23 Application Packaging Specialist Relationship Specialty Start Date End Date Martir Herbert II, MD [address] [place] [address] PCP - General Internal Medicine 02/06/23 Application Packaging Specialist Relationship Specialty Start Date End Date Martir Herbert II, MD [address] [place] [address] PCP - General Internal Medicine 02/06/23 Team [...] Other Provider Active Start: December 19, 2023 Application Packaging Specialist Relationship Specialty Start Date End Date Martir Herbert II, MD [address] [facility] [address] [place] [address] PCP - General Internal Medicine 02/06/23 Application Packaging Specialist Relationship Specialty Start Date End Date Martir Herbert MD [address] [facility] [address] [place] [address] PCP - ACO Reach 02/15/23 Martir Herbert MD [address] [place] [address] PCP - General Internal Medicine 01/30/23 Application Packaging Specialist Relationship Specialty Start Date End Date Martir Herbert MD [address] [place] [address] PCP - ACO Reach 02/15/23 Martir Herbert MD [address] [place] [address] PCP - General Internal Medicine 01/30/23 Application Packaging Specialist Relationship Specialty Start Date End Date Martir Herbert MD [address] [place] [address] PCP - ACO Reach 02/15/23 Martir Herbert MD [address] [place] [address] PCP - General Internal Medicine 01/30/23 Application Packaging Specialist Relationship Specialty Start Date End Date Martir Herbert MD [address] [place] [address] PCP - ACO Reach 02/15/23 Martir Herbert MD [address] [place] [address] PCP - General Internal Medicine 01/30/23 Application Packaging Specialist Relationship Specialty Start Date End Date Martir Herbert MD [address] [place] [address] PCP - ACO Reach 02/15/23 Martir Herbert MD [address] [place] [address] PCP - General Internal Medicine 01/30/23 Goals [...] or prosecute any alcohol or drug abuse patient.[facility] Hospital[facility] the event this information is protected by the Federal Confidentiality of Alcohol and Drug Abuse Patient Records regulations: The Federal rules restrict any use of the information to criminally investigate or prosecute any alcohol or drug abuse patient.[facility] HospitalIn the event this information is protected by the Federal Confidentiality of Alcohol and Drug Abuse Patient Records regulations: The Federal rules restrict any use of the information to criminally investigate or prosecute any alcohol or drug abuse patient.[facility] Hospital[facility] the event this information is protected by the Federal Confidentiality of Alcohol and Drug Abuse Patient Records regulations: The Federal rules restrict any use of the information to criminally investigate or prosecute any alcohol or drug abuse patient.[facility] HospitalIn the event this information is protected by the Federal Confidentiality of Alcohol and Drug Abuse Patient Records regulations: The Federal rules restrict any use of the information to criminally investigate or prosecute any alcohol or drug abuse patient.[facility] HospitalIn the event this information is protected by the Federal Confidentiality of Alcohol and Drug Abuse Patient Records regulations: The Federal rules restrict any use of the information to criminally investigate or prosecute any alcohol or drug abuse patient.[facility] HospitalIn the event this information is protected by the Federal Confidentiality of Alcohol and Drug Abuse Patient Records regulations: The Federal rules restrict any use of the information to criminally investigate or prosecute any alcohol or drug abuse patient.[facility] HospitalIn the event this information is protected by the Federal Confidentiality of Alcohol and Drug Abuse Patient Records regulations: The Federal rules restrict any use of the information to criminally investigate or prosecute any alcohol or drug abuse patient.[facility] HospitalIn the event this information is protected by the Federal Confidentiality of Alcohol and Drug Abuse Patient Records regulations: The Federal rules restrict any use of the information to criminally investigate or prosecute any alcohol or drug abuse patient.[facility] Reason for Visit (unrecogniz ed [...] BE BASED ON THE PRIMARY CLINICAL RECORDS. [employer] provides no warranty or guarantee of the accuracy or completeness of information in this document.
== END 2025-03-24 07:26 | disposition home or self-care (01) ==
PROVIDERS: PCP Internal Medicine; Visit Provider Internal Medicine Rheumatology
DX: M31.6 Other giant cell arteritis (principal); M19.90 Unspecified osteoarthritis, unspecified site; Z79.899 Other long term (current) drug therapy
CPT/HCPCS: 36415; 85652; 86140

== ENCOUNTER 2025-09-16 15:16 | Emergency (ER) | payer MEDICARE, OTHER, SELFPAY ==
[2025-09-16] VITALS (8 sets, daily range): BP systolic 174–179; BP diastolic 81; PULSE 59–61; TEMP 36.4; O2SAT 96–99; BMI 29.5
--- NOTE | 2025-09-16 15:51 | XR_ITS ---
[address] [address] Patient Name: YVONNE CAN MRN: [id number] date: 1940 Sex: M Assigned Patient Location: ER Current Patient Location: ED.MAIN Accession/Order Number: [id number] Exam Date: 09/16/2025 16:00 Report Date: 09/16/2025 16:34 At the request of: RON HALL Procedure: XR chest 1V Plain film chest Single view HISTORY: Left shoulder pain extending into the arm COMPARISON: 07/19/2023 FINDINGS: SUPPORT DEVICES: None POSTSURGICAL CHANGES: None HEART: Within normal limits PULMONARY MISAEL: Within normal limits MEDIASTINUM: Unremarkable LUNGS AND PLEURA: No acute lung process, pleural effusion or pneumothorax identified. Similar moderate right hemidiaphragm elevation BONY STRUCTURES: Intact ADDITIONAL FINDINGS None XR/XR chest 1V IMPRESSION: No acute process. Impression dictated by: Armani Morley M.D. 09/16/2025 4:34 PM Dictation Location[facility] Electronically authenticated by: [id number] Y Date: 09/16/2025 16:34
--- NOTE | 2025-09-16 15:54 | XR_ITS ---
[address] [address] Patient Name: YVONNE CAN MRN: [id number] date: 1940 Sex: M Assigned Patient Location: ER Current Patient Location: ED.MAIN Accession/Order Number: [id number] Exam Date: 09/16/2025 16:00 Report Date: 09/16/2025 16:36 At the request of: RON HALL Procedure: XR elbow LT min 3V 3 views left elbow HISTORY: Left arm and shoulder pain. Mild elbow degeneration. No joint effusion. Adequate bony alignment without acute displaced fracture. Unremarkable soft tissues. XR/XR elbow LT min 3V IMPRESSION: Mild degeneration. Impression dictated by: Armani Morley M.D. 09/16/2025 4:36 PM Dictation Location: [place] [address] Electronically authenticated by: [id number] Y Date: 09/16/2025 16:36
--- NOTE | 2025-09-16 15:54 | ECG_ITS ---
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 Measurements Intervals [place] Rate: 56 P: 55 HI: 208 QRS: 64 QRSD: 100 T: 90 QT: 428 QTc: 418 Interpretive Statements SINUS BRADYCARDIA FIRST DEGREE AV BLOCK 1570 with occasional ventricular premature complexes 4068 Nonspecific Twave abnormality 9140 abnormal rhythm ECG Compared to ECG 07/19/2023 09:35:54 Ventricular premature complex(es) now present Sinus arrhythmia no longer present Myocardial infarct finding no longer present Electronically Signed On 09-17-2025 7:48:47 EST by MO SEO M.D.
--- NOTE | 2025-09-16 15:54 | XR_ITS ---
The [address] [address] Patient Name: YVONNE CAN MRN: [id number] date: 1940 Sex: M Assigned Patient Location: ER Current Patient Location: ED.MAIN Accession/Order Number: [id number] Exam Date: 09/16/2025 16:00 Report Date: 09/16/2025 16:38 At the request of: RON HALL Procedure: XR shoulder LT min 2V 3 views left shoulder plain film HISTORY: Left shoulder pain extending into left arm. COMPARISON: None ACUTE FINDINGS: None DEGENERATIVE CHANGE: Mild SOFT TISSUE FINDINGS: Unremarkable JOINT EFFUSION: None POSTOP CHANGES: None BONY MINERALIZATION: Adequate XR/XR shoulder LT min 2V IMPRESSION: Mild degenerative changes. No acute findings Impression dictated by: Armani Morley M.D. 09/16/2025 4:38 PM Dictation Location: [place] [address] Electronically authenticated by: [id number] Y Date: 09/16/2025 16:38
--- NOTE | 2025-09-16 15:57 | ED.GENADUL1 ---
HPI HPI - General Adult General Chief complaint: Extremity Problem, Nontraumatic Stated complaint: PAIN IN LEFT ARM Time Seen by Provider: 09/16/25 15:36 Source: patient Mode of arrival: walk-in Limitations: no limitations History of Present Illness HPI narrative: Patient is an 84-year-old male with HTN, HLD, and heart murmur that presents with complaints of intermittent left medial arm pain that started sometime within the last week. He he first noticed his left shoulder hurting and noticed that this was probably the way he was pushing open a sliding door often to let his dog out. He took some aspirin and went to bed and the pain resolved but then within the next days started to feel it in his medial left elbow. He is right-handed, denies any surgery or previous injuries to his left shoulder or elbow. 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 He denies any chest pain or shortness of breath that presents to make sure he is not having a heart attack. Related Data Home Medications ?Medication ?Instructions ?Recorded ?Confirmed Eye and vision supplement PO 07/19/23 aspirin 81 mg tablet,delayed 81 mg PO DAILY 07/19/23 09/16/25 release (Adult Aspirin Regimen) calcium citrate 200 mg PO DAILY 07/19/23 09/16/25 cholecalciferol (vitamin D3) 25 1,000 unit PO DAILY 07/19/23 09/16/25 mcg (1,000 unit) capsule lactobacillus combination no.4 3 3,000 mmu cells PO DAILY 07/19/23 09/16/25 billion cell capsule (Probiotic) lisinopril 10 mg tablet 10 mg PO DAILY 07/19/23 09/16/25 omega-3 acid ethyl esters 1 gram 1 cap PO BID 07/19/23 09/16/25 capsule polyethylene glycol 3350 17 17 g PO DAILY 07/19/23 09/16/25 gram/dose oral powder (ClearLax) simvastatin 20 mg tablet 20 mg PO DAILY 07/19/23 09/16/25 solifenacin 10 mg tablet (Vesicare) 10 mg PO DAILY PRN bladder 09/16/25 09/16/25 Allergies Allergy/AdvReac Type Severity Reaction Status Date / Time Penicillins Allergy Rash Verified 09/16/25 15:20 Sulfa (Sulfonamide Allergy Unknown Verified 09/16/25 15:20 Antibiotics) Opioid HPI Opioid Management Most Recent Opioid Data: Last Pain Scale 5 Today, 15:20 Review of Systems ROS Status of ROS 10 or more systems reviewed and unremarkable except as noted in history and below PFSH PFS Medical History (Updated 09/16/25 @ 17:06 by RAFAEL Luevano) Constipation ?K59.00 - Constipation, unspecified (ICD-10) Benign prostatic hyperplasia with urinary obstruction and other lower urinary tract symptoms ?N40.1 - Benign prostatic hyperplasia with lower urinary tract symptoms (ICD-10) ?N13.8 - Other obstructive and reflux uropathy (ICD-10) Elevated serum cholesterol ?E78.00 - Pure hypercholesterolemia, unspecified (ICD-10) Prostate cancer ?C61 - Malignant neoplasm of prostate (ICD-10) Kidney stones ?N20.0 - Calculus of kidney (ICD-10) BPH (benign prostatic hyperplasia) ?N40.0 - Benign prostatic hyperplasia without lower urinary tract symptoms (ICD-10) Elevated PSA ?R97.20 - Elevated prostate specific antigen [PSA] (ICD-10) Hearing loss ?H91.90 - Unspecified hearing loss, unspecified ear (ICD-10) Hypertension ?I10 - Essential (primary) hypertension (ICD-10) Surgical History (Updated 07/19/23 @ 09:26 by Nichelle Guevara NP) History of cataract extraction ?Z98.49 - Cataract extraction status, unspecified eye (ICD-10) S/P cystoscopy ?Z98.890 - Other specified postprocedural states (ICD-10) Hx of prostate biopsy ?Z98.890 - Other specified postprocedural states (ICD-10) History of colonoscopy ?Z98.890 - Other specified postprocedural states (ICD-10) History of hemorrhoidectomy ?Z98.890 - Other specified postprocedural states (ICD-10) History of hernia repair ?Z98.890 - Other specified postprocedural states (ICD-10) ?Z87.19 - Personal history of other diseases of the digestive system (ICD-10) Family History (Updated 07/19/23 @ 09:26 by Nichelle Guevara, TEST ENGINEER [employer]UC[employer]QUIPMENT) Other Family history of heart disease Social History (Updated 09/06/23 @ 08:05 by Francine Vega) Within the past year, how often did you have a drink containing alcohol: never Score interpretation: A score less than 4 is consistent with normal alcohol consumption. Smoking status: Never smoker Non-prescribed substance use: denies use Previous occupational history: RETIRED Little interest or pleasure in doing things: not at all Feeling down, depressed, or hopeless: not at all Exam Narrative Exam Narrative: General: No distress, age-appropriate Skin: Warm, dry, no pallor. No rash. Head: Normocephalic, atraumatic. Neck: Supple, non-tender. Eye: Pupils are equal, round and EOMI. No scleral icterus. Ears, Nose, Mouth, and Throat: No nasal mucosal hypertrophy. Oral mucosa is moist, no posterior oropharynx erythema, uvula is mid-line Cardiovascular: Regular Rate and Rhythm without murmur, gallop or rub. Respiratory: No accessory muscle use or respiratory distress. Lungs are clear to auscultation, no wheezing, rales or rhonchi Chest Wall: no tenderness Musculoskeletal: Full ROM of all extremities, no calf or popliteal tenderness GI: Abdomen is soft, non-distended, non tender to palpation. No masses appreciated. No rebound, guarding, or rigidity noted. Neurological: A&O x4. No cranial nerve dysfunction observed. No truncal ataxia. Moves all extremities. Sensation intact. Psychiatric: Cooperative and interactive. Normal mood and affect. Constitutional Vital Signs, click to edit/add: Last Vital Signs Temp 97.6 F 09/16/25 15:20 Pulse 59 L 09/16/25 16:18 Resp 22 H 09/16/25 16:18 BP 174/81 H 09/16/25 16:21 Pulse Ox 96 09/16/25 16:50 O2 Del Method Room Air 09/16/25 15:20 Documenting provider has reviewed patient's vital signs: yes Course Vital Signs Vital signs: Vital Signs Temperature 97.6 F 09/16/25 15:20 Pulse Rate 61 09/16/25 15:20 Respiratory Rate 18 09/16/25 15:20 Blood Pressure 179/81 H 09/16/25 15:20 Pulse Oximetry 99 09/16/25 15:20 Oxygen Delivery Method Room Air 09/16/25 15:20 Temperature 97.6 F 09/16/25 15:20 Pulse Rate 59 L 09/16/25 16:18 Respiratory Rate 22 H 09/16/25 16:18 Blood Pressure 174/81 H 09/16/25 16:21 Pulse Oximetry 96 09/16/25 16:50 Oxygen Delivery Method Room Air 09/16/25 15:20 Medical Decision Making MDM Narrative Medical decision making narrative: 84-year-old male with hypertension, hyperlipidemia, and known heart murmur presents with intermittent left arm pain, initially involving the shoulder and later the medial elbow. Pain began after repetitive mechanical activity (pushing a sliding door). Pain not reproducible on exam today. Patient denies chest pain, shortness of breath, or exertional symptoms. Vital signs notable for elevated BP 174/81 and bradycardia HR 56. ECG shows NSR with occasional PVCs and nonspecific T-wave abnormalities. Troponin within normal limits at 10.9. CBC, BMP, and imaging (chest X-ray, left shoulder and elbow X-rays) show no acute abnormalities. HEART score calculated at 5 (moderate risk), driven by age and cardiovascular risk factors, but overall presentation and objective data are more consistent with musculoskeletal overuse/strain. Patient remains hemodynamically stable, pain controlled, and ACS ruled out in the ED. Discharged with activity modification, symptomatic management, and follow-up with primary care and cardiology for murmur evaluation. Differential Diagnosis Differential Diagnosis: ACS, muscle strain, cervical radiculopathy Lab Data Lab results reviewed: Yes I reviewed the patient's lab results Labs: Lab Results 09/16/25 Range/Units 16:11 WBC 6.0 (4.0-11.0) 10^3/uL RBC 4.97 (4.70-6.10) 10^6/uL Hgb 14.6 (14.0-18.0) g/dL Hct 43.4 (42.0-54.0) % MCV 87.3 (80.0-94.0) fL MCH 29.4 (25.9-34.0) pg MCHC 33.6 (29.9-35.2) g/dL RDW 14.6 (11.0-15.0) % Plt Count 231 (150-450) 10^3/uL MPV 9.6 (9.5-13.5) fL Neut % (Auto) 43.5 (43.0-75.0) % Lymph % (Auto) 34.5 (20.5-60.0) % [place] % (Auto) 13.8 H (1.7-12.0) % Eos % (Auto) 7.3 H (0.9-7.0) % Baso % (Auto) 0.7 (0.2-2.0) % Neut # (Auto) 2.6 (1.4-6.5) 10^3/uL Lymph # (Auto) 2.1 (1.2-3.8) 10^3/uL [place] # (Auto) 0.8 (0.3-0.8) 10^3/uL Eos # (Auto) 0.4 (0.0-0.7) 10^3/uL Baso # (Auto) 0.0 (0.0-0.1) 10^3/uL Abs Immat Gran (auto) 0.01 (0.00-0.03) 10^3/uL Imm/Tot Granulo (auto) 0.2 (0.0-0.5) % Sodium 140 (136-145) mmol/L Potassium 4.1 (3.5-5.1) mmol/L Chloride 104 (98-107) mmol/L Carbon Dioxide 30.5 (21.0-32.0) mmol/L Anion Gap 9.6 BUN 18.0 (7.0-18.0) mg/dL Creatinine 0.89 (0.70-1.30) mg/dL Est GFR ( Amer) >60 (>=60 mL/min/1.73m^2) Est GFR (Non-Af Amer) >60 (>=60 mL/min/1.73m^2) BUN/Creatinine Ratio 20.2 Glucose 98 (74-106) mg/dL Calcium 8.9 (8.5-10.1) mg/dL Troponin I High Sens 10.9 (4.0-76.1) pg/mL Imaging Data X-ray left shoulder and elbow, chest x-ray: Attestation: I have reviewed the pertinent imaging results. Radiologist's impression: ITS Impressions Chest X-Ray 09/16/25 15:51 IMPRESSION: No acute process. Impression dictated by: Armani Morley M.D. 09/16/2025 4:34 PM Dictation Location: [facility] Electronically authenticated by: [id number] Y Date: 09/16/2025 16:34 Elbow X-Ray 09/16/25 15:54 IMPRESSION: Mild degeneration. Impression dictated by: Armani Morley M.D. 09/16/2025 4:36 PM Dictation Location: [facility] Electronically authenticated by: [id number] Y Date: 09/16/2025 16:36 Shoulder X-Ray 09/16/25 15:54 IMPRESSION: Mild degenerative changes. No acute findings Impression dictated by: Armani Morley M.D. 09/16/2025 4:38 PM Dictation Location: [facility] Electronically authenticated by: [id number] Y Date: 09/16/2025 16:38 ECG Data Attestation: ?I have reviewed the pertinent ECG results. Discharge Plan Discharge Chief Complaint: Extremity Problem, Nontraumatic Clinical Impression: Arm pain Patient Disposition: Home, Self-Care Time of Disposition Decision: 17:02 Condition: Good Mode of Transportation: Private Vehicle Prescriptions / Home Meds: No Action solifenacin [Vesicare] 10 mg tablet 10 mg PO DAILY PRN (Reason: bladder) lisinopril 10 mg tablet 10 mg PO DAILY omega-3 acid ethyl esters 1 gram capsule 1 cap PO BID simvastatin 20 mg tablet 20 mg PO DAILY calcium citrate 200 mg (950 mg) tablet 200 mg PO DAILY Eye and vision supplement PO cholecalciferol (vitamin D3) 25 mcg (1,000 unit) capsule 1,000 unit PO DAILY Probiotic 3 billion cell capsule 3,000 mmu cells PO DAILY Rx Instructions: administer with a meal aspirin [Adult Aspirin Regimen] 81 mg tablet,delayed release (DR/EC) 81 mg PO DAILY polyethylene glycol 3350 [ClearLax] 17 gram/dose powder 17 g PO DAILY Print Language: Ukrainian Additional Instructions: Avoid repetitive or heavy lifting with the left arm for the next few days. You may take acetaminophen or NSAIDs as directed to relieve pain. Apply ice to the elbow/shoulder 15?20 minutes at a time, 2?3 times per day for the next 48 hours. Gentle stretching and hecnr-az-kmllkk exercises can be done if pain allows. Monitoring & Warning Signs (Return Immediately if): Chest pain, pressure, or tightness Shortness of breath or dizziness Sudden weakness, numbness, or tingling in the left arm Persistent or worsening arm/shoulder pain Swelling, redness, or inability to move your arm Follow-Up: Primary care provider: Within 1?2 weeks for blood pressure management and ongoing monitoring. Orthopedics/Physical Therapy: If arm pain persists or interferes with daily activities Referrals: TOSHIA WITT [Primary Care Provider, Internal Medicine] - 1 week
[2025-09-16 16:17] LABS: Hematocrit 43.4 % (42.0-54.0); Hemoglobin 14.6 g/dL (14.0-18.0); Immature Granulocytes Abs Auto 0.01 10^3/uL (0.00-0.03); Immature Granulocytes Pct Auto 0.2 % (0.0-0.5); Lymphocytes Absolute Auto 2.1 10^3/uL (1.2-3.8); Mean Corpuscular HGB Conc 33.6 g/dL (29.9-35.2); Mean Corpuscular Hemoglobin 29.4 pg (25.9-34.0); Mean Corpuscular Volume 87.3 fL (80.0-94.0); Platelet Count 231 10^3/uL (150-450); Red Blood Count 4.97 10^6/uL (4.70-6.10); White Blood Count 6.0 10^3/uL (4.0-11.0)
--- OUTSIDE RECORDS SUMMARY | 2025-09-16 16:38 | XMS_ITS | Clinical Summary ---
Author Organization [facility] Address [address] [place] [address] Phone Care Team Providers Care Inspector And Clipper Name Role Phone Martir Herbert MD Primary Care Provider [phone] Allergies Active AllergyReactionsCriticalityNoted QnanEoreddohElksblzidiaQkxoBiu20/13/2023 Sulfa (Sulfonamide Antibiotics)HaecLmk3208/06/2023 Medications MedicationSigDispense QuantityRefillsLast FilledStart DateEnd DateStatus omega-3 acid ethyl esters (Lovaza) 1 gram capsule Take 1 capsule (1 g) by mouth. Take 2 in the AM 1 in the PMActive simvastatin (Zocor) 20 mg tablet Take 1 tablet (20 mg) by mouth once daily at bedtime.Active lisinopril 10 mg tablet Take 1 tablet (10 mg) by mouth once daily.Active calcium citrate (Calcitrate) 200 mg (950 mg) tablet Take 1 tablet (200 mg) by mouth once daily.Active cholecalciferol (Vitamin D3) 25 MCG (1000 UT) tablet Take 1 tablet (1,000 Units) by mouth once daily.Active aspirin 81 mg EC tablet Take 1 tablet (81 mg) by mouth once daily.Active polyethylene glycol 3350 (CLEARLAX ORAL) Take 1 Capful by mouth once daily.Active lactobacillus combination no.4 (Probiotic) 3 billion cell capsule Take 1 capsule by mouth once daily.Active vitamins A,C,D-pyyu-xgrpui 2,148 mcg-113 mg-45 mg-17.4mg tablet Take 1 tablet by mouth once daily.Active predniSONE (Deltasone) 20 mg tablet Take 1 tablet (20 mg) by mouth 3 times a day.Active Active Problems ProblemNoted DateDiagnosed DateEncounter to discuss test blsvwmb5112/17/2023MI 28.0-28.9,adult12/17/2023Never smoked dfznlfj0712/17/2023Nonrheumatic aortic valve tctutebg70/25/2024re-op ydilonugxkw85/13/2023 Resolved Problems ProblemNoted DateDiagnosed DateResolved DateAbnormal dhucmxbpuhxfgz04/25/2024 12/17/2023 Family History Medical HistoryRelationNameCommentsNo Known ProblemsBrotherHeart diseaseFather Brain cancerMotherNo Known ProblemsSisterRelationNameStatusCommentsBrotherFather MotherSister Social History Tobacco UseTypesPacks/DayYears UsedDateSmoking Tobacco: NeverSmokeless Tobacco: NeverAlcohol UseStandard Drinks/WeekCommentsNever0 (1 standard drink = 0.6 oz pure alcohol)Sex and Gender InformationValueDate RecordedSex Assigned at Not on fileLegal NmyLpin19/31/2023 9:13 AM EDTGender IdentityNot on fileSexual OrientationNot on file Last Filed Vital Signs Vital SignReadingTime TakenCommentsBlood Bgxzgbia100/68012/17/2023 9:01 AM EDT Epzna225212/17/2023 9:01 AM EDTTemperature--Respiratory Rate--Oxygen Saturation-- Inhaled Oxygen Concentration--Swtavs18.5 kg (195 lb)12/17/2023 9:01 AM EDTHeight 175.3 cm (5' 9 )12/17/2023 9:01 AM EDTBody Mass Index28.8012/17/2023 9:01 AM EDT Plan of Treatment Health MaintenanceDue DateLast DoneCommentsMedicare Annual Wellness Visit (AWV) 2RSV High Risk: (Elderly (60+) or Population) (1 - 1-dose 75+ series)2016COVID-19 Vaccine (1 - 2024- season)2025Influenza Vaccine (#1)511/03/2023, 08/13/2022, 06/25/2021, Additional history existsLipid Panel/4DTaP/Tdap/Td Vaccines (2 - Td or Tdap) 1Pneumococcal LtyywofQgrmptyey75/09/2019, 10/05/2009Zoster HqlauczpVagzqyvoq54/27/2022, 09/21/2021, 07/01/2013HIB VaccinesAged OutNo longer eligible based on patient's age to complete this topicHPV VaccinesAged OutNo longer eligible based on patient's age to complete this topicHepatitis A VaccinesAged OutNo longer eligible based on patient's age to complete this topic Hepatitis B VaccinesAged OutNo longer eligible based on patient's age to complete this topicIPV VaccinesAged OutNo longer eligible based on patient's age to complete this topicMeningococcal VaccineAged OutNo longer eligible based on patient's age to complete this topicRotavirus VaccinesAged OutNo longer eligible based on patient's age to complete this topic Insurance Care Teams Team MemberRelationshipSpecialtyStart DateEnd Martir Herbert MD [address] [address] PCP - GeneralInternal Cbehiooz05/13/23
--- OUTSIDE RECORDS SUMMARY | 2025-09-16 16:38 | XMS_ITS | Clinical Summary ---
Author Organization [facility] Healthcare Address [address] [place] [address] Care Team Providers Care Ammonia Box Operator Name Role Phone Martir Herbert MD Unavailable [phone] Martir Herbert MD Primary Care Provider [phone] Allergies Active AllergyReactionsCriticalityNoted DateCommentsPenicillinsHives,Rash, FfizoymZrujqw22/26/2023Sulfa UjehsxczvkuFndwKye40/26/2023 Medications MedicationSigDispense QuantityRefillsLast FilledStart DateEnd DateStatus cholecalciferol (Vitamin D-3) 25 MCG (1000 UT) tablet Take 1,000 Units by mouth in the morning.Active aspirin 81 MG EC tablet Take 81 mg by mouth in the morning.05/29/2023ctive calcium citrate (Calcitrate) 950 (200 Ca) MG tablet Take 200 mg by mouth in the morning.Active oxybutynin (Ditropan) 5 MG tablet Take 5 mg by mouth at bedtimeActive lisinopril 10 MG tablet Indications:Benign essential hypertensionTake 1 tablet (10 mg) by mouth in the morning. 90 tablet 5Active simvastatin (Zocor) 20 MG tablet Indications:Mixed hyperlipidemiaTake 1 tablet (20 mg) by mouth in the morning. 90 tablet 5Active furosemide (Lasix) 20 MG tablet Indications:Localized edemaTake 1 tablet (20 mg) by mouth Daily 90 tablet 5011/21/2025ctive omega-3 acid ethyl esters (Lovaza) 1 g capsule Indications:Mixed hyperlipidemiaTAKE 1 CAPSULE BY MOUTH IN THE MORNING AND 1 CAPSULE BY MOUTH BEFORE BEDTIME 60 capsule 1115Active omega-3 acid ethyl esters (Lovaza) 1 g capsule Indications:Mixed hyperlipidemiaTAKE 1 CAPSULE BY MOUTH IN THE MORNING AND 1 CAPSULE BY MOUTH BEFORE BEDTIME 180 capsule Discontinued Active Problems ProblemNoted DateDiagnosed DateTemporal /28/2024ortic stenosis, ryxhtodn04/14/2024hronic btjbspdjepmn96/19/2024egenerative joint disease of hand, right11/12/2023Elevated PSA11/12/2023Left inguinal ynpwdk7611/12/2023 Overweight with body mass index (BMI) 25.0-29.9011/12/2023Urinary retention 11/12/2023Malignant neoplasm of phviyoeu53/18/2024enign essential hypertension 05/28/2023Mixed bqtsxyiqxuflto23/04/2023 Resolved Problems ProblemNoted DateDiagnosed DateResolved DateBenign enlargement of prostate /rostate clankl19Frequent urination enign prostatic hyperplasia without lower urinary tract lidxytsv59ysplasia of Encounters DateTypeDepartmentCare DrdnAcfqjymweqz61/08/2025Refill [facility] [address] [facility] [address] [place] [id number] Martir Herbert MD Mixed ihvqhogbwydzxu25/14/2025bstract [facility] [address] [facility] [address] [place] [address] Martir Herbert MD from Last 3 Months Immunizations ImmunizationAdministration DatesNext DueInfluenza, High Dose Seasonal, Preservative Free07/04/2024,07/03/2020,06/21/2017,08/18/2015Influenza, Seasonal, Quadrivalent, Iphuyzebyj49/07/2023,08/13/2022,06/25/2021Influenza, seasonal, ubdryhvqnc21/08/2013Influenza, seasonal, injectable, preservative free06/23/2014 Influenza, trivalent, snmlyftvka95/09/2019,06/29/2018Pneumococcal Conjugate PCV 131Pneumococcal Polysaccharide [id number], recombinant, protein subunit RSVpreF, adjuvant reconstitu, 120mcg/0.5mL, PF (Arexvy) 11/16/2023Tdap111/20/2020Zoster, Oqnaxxahxnu03/27/2022,09/21/2021Zoster, live 07/01/2013 Family History Medical HistoryRelationNameCommentsHeart diseaseFatherCancerMotherRelationName StatusCommentsFatherDeceasedMotherDeceased Social History Tobacco UseTypesPacks/DayYears UsedDateSmoking Tobacco: NeverSmokeless Tobacco: Never Tobacco Cessation:Counseling Given: Not Answered PHQ-2AnswerDate RecordedPatient Health Questionnaire-2 [id number] and Gender InformationValueDate RecordedSex Assigned at BirthNot on fileLegal Sex Male12/06/2022 7:03 PM EDTGender IdentityNot on fileSexual OrientationNot on file Last Filed Vital Signs Vital SignReadingTime TakenCommentsBlood Riclsvym648/7411/21/2024 8:28 AM EST Ewvyy471911/21/2024 8:28 AM ESTTemperature--Respiratory Rate--Oxygen Hwusmusuvu96% 11/21/2024 8:28 AM ESTInhaled Oxygen Concentration--Gtvzcu74.3 kg (208 lb) 11/21/2024 8:28 AM EYUFcpbcb045 cm (5' 8.5 )11/21/2024 8:28 AM ESTBody Mass Index31.17011/21/2024 8:28 AM EST Plan of Treatment DateTypeDepartmentCare Team (Latest Contact Info)Hdjdjhmyhng08/23/2026 8:30 AM ESTOffice Visit [facility] [address] [facility] [address] [place] [address] Martir Herbert MD [address] [facility] [address] [place] [address] Health MaintenanceDue DateLast DoneCommentsInfluenza RklvfvwErgjvcnmn59/13/2025, 07/04/2024, 07/31/2023, Additional history existsPneumococcal Vaccine: 65+ Years Imtjygfev98/13/2025, 07/02/2019, 10/05/[address] [place] [address] Care Teams Team MemberRelationshipSpecialtyStart DateEnd Martir Herbert MD [address] [facility] [address] [place] [address] PCP - ACO Reach02/15/23 Martir Herbert MD [address] [facility] [address] [place] [address] PCP - GeneralInternal Medicine01/30/23
--- OUTSIDE RECORDS SUMMARY | 2025-09-16 16:38 | XMS_ITS | Clinical Summary ---
Author Organization [facility] Address [address] [place], [place] [id number] Care Team Providers Care Qa Auditor Name Role Phone Keon COBIAN MD, Martir Griffin Primary Care Provider [phone] Allergies Active AllergyReactionsCriticalityNoted HxxhXadbfawnGdopkmwbntjRqaq52/26/2023 Sulfa (Sulfonamide Antibiotics)Rash02/16/2023 Medications MedicationSigDispense QuantityRefillsLast FilledStart DateEnd DateStatus simvastatin (ZOCOR) 10 mg tablet Take 10 mg by mouth daily at bedtime.01/05/2023ctive lisinopril (ZESTRIL) 10 mg tablet 01/05/2023ctive omega-3 acid ethyl esters (LOVAZA) 1 gram capsule 01/05/2023ctive calcium citrate (CITRACAL ORAL) Take by mouth.Active Lactobacillus acidophilus (PROBIOTIC ORAL) Take by mouth.Active cholecalciferol, vitamin D3, (VITAMIN D3 ORAL) Take by mouth.Active polyethylene glycol 3350 (CLEARLAX ORAL) Take by mouth.Active aspirin, enteric coated (ASPIRIN, ENTERIC COATED) 81 mg EC tablet Take 81 mg by mouth once daily.Active OTC PRODUCT Eye and vision supplementActive predniSONE (DELTASONE) 20 mg tablet Take 60 mg by mouth once daily.Active oxybutynin XL (DITROPAN XL) 5 mg 24 hr tablet Take 5 mg by mouth once daily.Active Active Problems ProblemNoted DateDiagnosed DateMalignant neoplasm of /18/2024 Family History Medical HistoryRelationCommentsProstate CancerBrother 1Prostate CancerBrother 2 Lung CancerMotherRelationStatusCommentsBrother 1AliveBrother 2AliveMother Social History Tobacco UseTypesPacks/DayYears UsedDateSmoking Tobacco: NeverSmokeless Tobacco: Never Tobacco Cessation:Counseling Given: Not Answered Alcohol UseStandard Drinks/WeekCommentsNot Currently0 (1 standard drink = 0.6 oz pure alcohol)PHQ-2AnswerDate RecordedPHQ-2 myfjr029rea Deprivation IndexAnswerDate RecordedNational Score (1-100), lower number is lower risk53 09/06/2023State Score (1-10), lower number is lower lmxr30011/07/2022ata from: https://www.neighborhoodatlas.[email or web address]/. Last address used for llt[address]uf[address]09/06/2023Sex and Gender InformationValueDate RecordedSex Assigned at BirthNot on fileLegal RhpQlln93/02/2012 9:58 AM EST Gender IdentityNot on fileSexual OrientationNot on file Last Filed Vital Signs Vital SignReadingTime TakenCommentsBlood Irkyxkql702/7807 9:29 AM EDT Mougg107304/10/2024 9:29 AM EHGJfwcbthyxqn70.3 ??C (97.4 ??F)04/10/2024 9:29 AM EDTRespiratory Kpwm931404/10/2024 9:29 AM EDTOxygen Rydibkeycp44%04/10/2024 9:29 AM EDTInhaled Oxygen Concentration--Hfqbco10.3 kg (188 lb 0.8 oz)04/10/2024 9:29 AM SKLTxqmll167.3 cm (5' 9 )02/16/2023 8:05 AM EDTBody Mass Index27.77002/16/2023 8:05 AM EDT Plan of Treatment Health MaintenanceDue DateLast DoneCommentsAnxiety Ayukknrcu90/02/1960Depression Rrvrthcyl37/02/1960Diabetes Kgmviygmw90/02/1987Medicare Annual Wellness Visit 11/22/2006dvance Directive Gumuewzdyz24/01/2025ovid-19 Vaccine ( season)/03/2023, 08/13/2022, 06/25/2021, Additional history exists Influenza Vaccine (#1)/07/2024, 07/31/2023, 08/13/2022, Additional history existsDTaP,Tdap,Td Vaccine (2 - Td or Tdap)/ Pneumococcal Vaccine: 50+Atyyeqzyg56/09/2019, 10/05/2009Shingrix Vaccine Gdwcmueux37/27/2022, 09/21/2021, 07/01/2013RSV QorfgrjBctepvrrr62/23/2024 Insurance Care Teams Team MemberRelationshipSpecialtyStart DateEnd Date Martir Herbert II, MD [address] [facility] [address] [place] [address] PCP - GeneralInternal Medicine02/06/23
[2025-09-16 16:45] LABS: Anion Gap 9.6; Blood Urea Nitrogen 18.0 mg/dL (7.0-18.0); Calcium 8.9 mg/dL (8.5-10.1); Carbon Dioxide 30.5 mmol/L (21.0-32.0); Chloride 104 mmol/L (98-107); Estimated GFR (African America >60 (>=60 mL/min/1.73m^2); Estimated GFR (Non-African Ame >60 (>=60 mL/min/1.73m^2); Glucose 98 mg/dL (74-106); Potassium 4.1 mmol/L (3.5-5.1); Sodium 140 mmol/L (136-145)
== END 2025-09-16 17:30 | disposition home or self-care (01) ==
PROVIDERS: Physician Assistant; Emergency Provider Student in an Organized Health Care Education/Training Program; PCP Internal Medicine
DX: M79.602 Pain in left arm (principal); I10 Essential (primary) hypertension; E78.5 Hyperlipidemia, unspecified; R01.1 Cardiac murmur, unspecified
CPT/HCPCS: 36415; 71045; 73030; 73080; 80048; 84484; 85025; 93005; 99285